=== PATIENT | male | born 1940 | race Caucasian/White ===

== ENCOUNTER 2018-10-21 10:17 | Day surgery (SDC) | payer MEDICARE, BC ==
[2018-10-17 16:06] VITALS: BMI 33.5
[~2018-10-21 10:17] MED LIST: LACTATED RINGERS 1,000 ML IV SCH; LIDOCAINE 1% 20 ML VIAL (10MG/ML) FOR IV START INTRADERMA PRN
[2018-10-21 10:38] VITALS: TEMP 97.8
[2018-10-21] MEDS ORDERED: LACTATED RINGERS 1,000 ML IV ONE (10:38)
[2018-10-21] MEDS ORDERED: PROPOFOL 10 MG/ML 20 ML VIAL IV ONE (11:40)
[2018-10-21 12:15] VITALS: RESP 16
--- NOTE | 2018-10-21 12:17 | P.PCN ---
Date of Procedure: 10/21/18 Procedure(s) Performed: Procedure: Colonoscopy and biopsy and polypectomy area Preoperative diagnosis: History of polyps and chronic diarrhea. Postoperative diagnosis: 1. Multiple polyps snared but no large polyps or cancer. 2. Sigmoid diverticulosis with no evidence of acute diverticulitis or strictures. 3. Biopsies obtained from the right colon to assess for collagenous colitis. Preparation: HalfLytely prep. Sedation: Was provided by anesthesia. Brief clinical history: The patient is a 77-year-old male with history of polyps. He was evaluated in the office in the past regarding chronic diarrhea and has history of collagenous colitis. His last colonoscopy was November 2011. Procedure: With the patient on his left lateral decubitus position and after informed consent and adequate sedation, the perianal area was inspected and it did not show any fissures or fistulas. He were no masses felt on digital rectal examination. The Olympus CFH 190 and video colonoscope was then inserted in the rectum in the usual fashion and advanced to the cecum. There were multiple diverticular orifices seen scattered in the sigmoid with no evidence of acute diverticulitis or strictures. At around 35 cm from the anal canal, there was a flat small polyp which was removed piecemeal and retrieved by suction. Around the hepatic flexure and in the proximal transverse colon there were multiple small polyps which were snared and retrieved by suction and sent to pathology together in 1 container. No large polyps or cancer. I obtained biopsies from the right colon because of his history of diarrhea and history of collagenous colitis. I retroflexed the endoscope in the rectum before the endoscope was withdrawn. The patient tolerated the procedure well. Plan: The patient was reassured. Will await pathology results and make further recommendations.
[2018-10-21 12:36] VITALS: BP 136/82; PULSE 83
== END 2018-10-21 12:54 | disposition home or self-care (01) ==
LOC: ORWHC2ENDO 10:17
DX: K52.9 Noninfective gastroenteritis and colitis, unspecified (principal); D12.3 Benign neoplasm of transverse colon; D12.5 Benign neoplasm of sigmoid colon; K57.30 Diverticulosis of large intestine without perforation or abscess without bleeding; I11.9 Hypertensive heart disease without heart failure; I50.9 Heart failure, unspecified; I26.99 Other pulmonary embolism without acute cor pulmonale; J44.9 Chronic obstructive pulmonary disease, unspecified; E78.5 Hyperlipidemia, unspecified; Z86.010 Personal history of colon polyps; Z79.899 Other long term (current) drug therapy
CPT/HCPCS: 88305; 45385; 45380; J2704

== ENCOUNTER → 2020-04-29 | Outpatient (CLI) | payer MEDICARE, BC ==
[2020-04-29 14:15] LABS: HGB 17.9 gm/dL (13.0-17.5); Hypochromasia Slight; MCHC 32.5 g/dL (31.0-37.0); MCV 95.5 fL (80.0-100.0); Mean Platelet Volume 7.5; Platelet Count 215 k/uL (150-450); RBC 5.78 m/uL (4.30-5.90); RDW 14.5 % (11.5-15.5); WBC 14.2 k/uL (3.8-10.6)
[2020-04-29 14:17] LABS: HCT 55.2 % (39.0-53.0)
== END | disposition home or self-care (01) ==
LOC: LABPAT 13:00
PROVIDERS: ATTEND Internal Medicine Interventional Cardiology
DX: Z01.818 Encounter for other preprocedural examination (principal); I25.10 Atherosclerotic heart disease of native coronary artery without angina pectoris; I70.213 Atherosclerosis of native arteries of extremities with intermittent claudication, bilateral legs
CPT/HCPCS: 36415; 80051; 82565; 84520; 85027

== ENCOUNTER 2020-05-04 07:48 | Day surgery (SDC) | payer MEDICARE, BC ==
[2020-05-02 10:48] VITALS: BMI 32.9
[~2020-05-04 07:48] MED LIST changes: +ALPRAZolam 0.25 MG TAB PO PRN; +ALPRAZolam 0.5 MG TAB PO PRN; +ASPIRIN 325 MG TAB PO STA; +ATORVASTATIN 80 MG TAB PO STA; -LACTATED RINGERS 1,000 ML IV SCH; -LIDOCAINE 1% 20 ML VIAL (10MG/ML) FOR IV START INTRADERMA PRN; +NITROGLYCERIN SL TABS 0.4 MG TAB SUBLINGUAL PRN; +SODIUM CHLORIDE 0.9% 1,000 ML in EMPTY BAG 1 BAG IV ONE
[2020-05-04] MEDS ORDERED: SODIUM CHLORIDE 0.9% 1,000 ML IV SCH ×2 (08:00→14:15)
[2020-05-04 08:30] VITALS: RESP 16
[2020-05-04] MEDS ORDERED: MIDAZOLAM 2 MG/2 ML VIAL IVP ONE (13:36)
[2020-05-04] MEDS ORDERED: LIDOCAINE 1% INJ 10MG/ML (20 ML MDV) SQ ONE (13:40)
[2020-05-04] MEDS ORDERED: SODIUM CHLORIDE 0.9% 500 ML 500 ML IV ONE (13:55)
[2020-05-04] MEDS ORDERED: IOPAMIDOL-250 50ML BTL INTRAARTER ONE (14:01)
[2020-05-04] MEDS ORDERED: IOPAMIDOL-370 100ML BTL INJ ONE (14:01)
[2020-05-04] MEDS ORDERED: RX INFO: IV CONTRAST WAS GIVEN 1 EACH MISC MISCELLANE PRN (14:07)
--- NOTE | 2020-05-04 18:40 | CC ---
CARDIAC CATHETERIZATION REPORT DATE OF SERVICE: 05/04/2020 PERFORMING PHYSICIAN: Stef Monson M.D. PROCEDURE PERFORMED: Selective right and left coronary angiogram. INDICATION: This is a pleasant 79-year-old gentleman with hypertension, dyslipidemia and paroxysmal atrial fibrillation who was experiencing symptoms of shortness of breath with exertion. He underwent myocardial perfusion imaging stress test several years ago and that showed reversible defect, but at that point he refused to undergo a heart catheterization. This time he agreed to proceed with the procedure. He was brought today to undergo heart catheterization. APPROACH: Right common femoral artery. COMPLICATIONS: None. LEVEL OF SEDATION: Moderate, with sedation length of 10 minutes. PROCEDURE DESCRIPTION: After obtaining informed consent, the patient was brought to the cardiac dental laboratory technician. The right common femoral artery was cannulated using micropuncture technique. The micropuncture wire passed easily. Then I placed a 6-Jamaican sheath. After that I did selective right and left coronary angiogram with JR4 and JL4 catheters. The procedure was completed without any complication. SELECTIVE CORONARY ANGIOGRAM: 1. The right coronary artery is a large-caliber vessel and it is a dominant vessel. The RCA is chronically occluded in the mid portion and fills by collaterals from the left coronary system. 2. The left main is angiographically normal. It bifurcates into LCX and LAD. 3. The LCX is a large-caliber vessel. It is a nondominant vessel. The LCX proximally appeared to have mild disease only. It gives rise to a large first OM branch which bifurcates into two sub-branches. Both sub-branches appeared to be diseased in the range of 70% to 80%. The mid left circumflex appeared to be normal and the circumflex distally appeared to have mild disease only. 4. The LAD. The proximal LAD appeared to be angiographically normal. The mid LAD has a focal lesion that appeared to be in the range of 70% to 80% and was most seen on the ANDRADE cranial view. The LAD distally appeared to be normal. The LAD gives rise to the first diagonal branch, which is a moderate-caliber vessel with mild disease only. CONCLUSION: 1. Calcified right and left coronary systems. 2. Chronic total occlusion of the RCA which fills by collaterals from the left coronary system. 3. Severe disease involving the first obtuse marginal branch of the left circumflex. 4. Severe disease involving the proximal LAD. The patient is going to be discharged home today. POST-PROCEDURE MANAGEMENT: 1. I am going to follow up with the patient next week in the office and I will discuss with him the option of revascularization, including surgical versus percutaneous. 2. If the patient agrees with surgical revascularization, I will consult cardiothoracic surgeon. 3. If the patient does not want to have surgery, then at that point I would pursue PCI of the LAD and possibly the LCX with adjunctive use of atherectomy, given the heavily calcified arteries. 4. Obtain an echocardiogram to establish LV function. 5. Follow up with the patient. MMODL / IJN: [id number] /
[2020-05-04 20:59] VITALS: BP 133/80; PULSE 75; TEMP 97.5
--- NOTE | 2020-05-04 22:16 | AN ---
ANGIOGRAPHY REPORT DATE OF SERVICE: 05/04/2020 PERFORMING PHYSICIAN: Stef Monson M.D. PROCEDURE PERFORMED: 1. Abdominal aortogram. 2. Bilateral lower extremity runoff. INDICATION: This is a pleasant 79-year-old gentleman who is in good physical and mental shape who was experiencing bilateral lower extremity intermittent claudication, and recent arterial duplex study showed occluded bilateral SFA. APPROACH: Right common femoral artery. COMPLICATIONS: None. LEVEL OF SEDATION: Moderate, with sedation length of 11 minutes. PROCEDURE DESCRIPTION: Please refer to procedure description of heart catheterization that was performed earlier today. ABDOMINAL AORTOGRAM AND BILATERAL LOWER EXTREMITY RUNOFF: This was performed using a pigtail catheter which was initially placed at the level of the renal arteries, then it was pulled into above the bifurcation of the aorta to right and left common iliac arteries. The procedure was completed without any complication. SELECTIVE PERIPHERAL ANGIOGRAM: 1. The abdominal aorta was not well opacified, but the aorta appeared to be heavily calcified with mild disease only. 2. Common iliac arteries. The right and left common iliac arteries appeared to be extremely calcified with mild disease only. 3. Internal iliac arteries. The right internal iliac artery was not opacified and the left internal iliac artery appeared to be patent. 4. External iliac arteries. The right and left external iliac arteries appeared to be patent. 5. Profundae. Both profundae are patent and appeared to be large. 6. SFA. The SFA is occluded bilaterally and both SFAs appeared to be heavily calcified. 7. Popliteals. Both popliteals appeared to be heavily calcified and subtotally occluded as well. 8. Below the knee. The arteries below the knee were not well opacified. CONCLUSION: 1. Mild aortoiliac disease. 2. Severe femoropopliteal disease with occluded bilateral SFA and bilateral popliteal. POST-PROCEDURE MANAGEMENT: 1. I would advise a conservative medical approach, given the patient's age at this point. 2. Follow up with the patient. MMODL / IJN: [id number] /
--- NOTE | 2020-05-05 14:34 | IR ---
Fluoroscopy HISTORY: Pain 4.6 minutes fluoroscopy time supplied to the referring clinician. 107 intraoperative C-arm images do cument the procedure. See dictated report from cardiology.
== END 2020-05-04 22:50 | disposition home or self-care (01) ==
LOC: CATHCVL 07:48 → 1SOBS 14:00 → CATHCVL 22:50
PROVIDERS: ATTEND Internal Medicine Interventional Cardiology
DX: I25.110 Atherosclerotic heart disease of native coronary artery with unstable angina pectoris (principal); I25.82 Chronic total occlusion of coronary artery; I70.213 Atherosclerosis of native arteries of extremities with intermittent claudication, bilateral legs; I10 Essential (primary) hypertension; I48.11 Longstanding persistent atrial fibrillation; J44.9 Chronic obstructive pulmonary disease, unspecified; E78.5 Hyperlipidemia, unspecified; E78.00 Pure hypercholesterolemia, unspecified; Z79.51 Long term (current) use of inhaled steroids; Z79.82 Long term (current) use of aspirin; Z79.899 Other long term (current) drug therapy; Z72.0 Tobacco use
CPT/HCPCS: 93454; 75625; 75716; C1769 ×4; C1894; J2250; J2001; Q9966; Q9967; 36200

== ENCOUNTER 2020-05-13 06:03 | Inpatient (IN) | payer MEDICARE, BC ==
[~2020-05-13 06:03] MED LIST changes: -ASPIRIN 325 MG TAB PO STA; -ATORVASTATIN 80 MG TAB PO STA
[2020-05-13] MEDS ORDERED: SODIUM CHLORIDE 0.9% 1,000 ML IV ONE (06:16)
[2020-05-13 06:53] LABS: Basophils % (A) 0 %; Eosinophils % (A) 0 %; HCT 51.3 % (39.0-53.0); HGB 16.8 gm/dL (13.0-17.5); Lymphocytes # (A) 1.1 k/uL (1.0-4.8); Lymphocytes % (A) 9 %; MCH 30.7 pg (25.0-35.0); MCHC 32.7 g/dL (31.0-37.0); Mean Platelet Volume 7.5; Monocytes # (A) 0.5 k/uL (0-1.0); Monocytes % (A) 4 %; Neutrophils # (A) 10.3 k/uL (1.3-7.7); Neutrophils % (A) 85 %; Platelet Count 183 k/uL (150-450); RBC 5.45 m/uL (4.30-5.90); RDW 14.1 % (11.5-15.5); WBC 12.1 k/uL (3.8-10.6)
[2020-05-13] MEDS ORDERED: LOPERAMIDE 2 MG CAP PO ONE (07:00)
[2020-05-13] MEDS ORDERED: ASPIRIN 325 MG TAB PO ONE (07:00)
[2020-05-13] MEDS ORDERED: ATORVASTATIN 80 MG TAB PO ONE (07:00)
[2020-05-13 07:02] LABS: Calcium 10.1 mg/dL (8.4-10.2); Potassium 5.2 mmol/L (3.5-5.1)
[2020-05-13] MEDS ORDERED: LIDOCAINE 1% INJ 10MG/ML (20 ML MDV) ONE ×2 (07:41→07:50)
[2020-05-13] MEDS: MIDAZOLAM 2 MG/2 ML VIAL IV ONE ×2 (07:48→07:56)
[2020-05-13] MEDS ORDERED: LIDOCAINE 1% INJ 10MG/ML (20 ML MDV) SQ ONE ×2 (07:50→07:52)
[2020-05-13] MEDS: fentaNYL (PF) 50 MCG/ML 2 ML AMP IV ONE ×2 (07:52→08:45)
[2020-05-13] MEDS ORDERED: HEPARIN SODIUM 1,000 UN/ML (10ML VL) ONE ×2 (07:54→08:50)
[2020-05-13] MEDS ORDERED: fentaNYL (PF) 50 MCG/ML 2 ML AMP ONE (08:05)
[2020-05-13] MEDS ORDERED: MIDAZOLAM 2 MG/2 ML VIAL IV ONE (08:10)
[2020-05-13] MEDS ORDERED: NITROGLYCERIN 1000MCG/10ML SYRINGE INTRACORON ONE (08:37)
[2020-05-13] MEDS ORDERED: IOPAMIDOL-370 100ML BTL INJ ONE (08:39)
[2020-05-13] MEDS ORDERED: TICAGRELOR 90 MG TAB ONE (08:40)
[2020-05-13] MEDS ORDERED: TICAGRELOR 90 MG TAB PO ONE (08:42)
[2020-05-13] MEDS ORDERED: ATROPINE SULFATE 0.1 MG/ML 10ML SYRINGE IV PRN (09:02)
[2020-05-13] MEDS ORDERED: MAG HYDROX/AL HYDROX/SIMETH 30 ML CUP PO PRN (09:02)
[2020-05-13] MEDS ORDERED: RX INFO: IV CONTRAST WAS GIVEN 1 EACH MISC MISCELLANE PRN (09:02)
[2020-05-13] MEDS ORDERED: ZOLPIDEM 5 MG TAB PO PRN (09:02)
[2020-05-13] MEDS ORDERED: SODIUM CHLORIDE 0.9% 1,000 ML IV SCH (09:15)
--- NOTE | 2020-05-13 12:52 | PTCA ---
PERCUTANEOUSTRANS CORORONARY ANGIOGRAPHY DATE OF SERVICE: 05/13/2020 PERFORMING PHYSICIAN: Stef Monson MD. PROCEDURE PERFORMED: 1. Placement of Impella in the left ventricle. 2. Successful stenting of the proximal left anterior descending artery using 3.5 x 18 mm Xience DENYS with an excellent angiographic results and reduction of stenosis from 80% to 0%. 3. Atherectomy of the left anterior descending artery. 4. Selective bilateral common femoral artery angiogram. INDICATION: This is an 79-year-old gentleman who was experiencing symptoms of shortness of breath and as well as he was diagnosed recently with atrial fibrillation. A stress test in the past revealed reversible defect. He underwent a heart catheterization and that revealed severe triple-vessel coronary artery disease, but with his age and frailty, he refused to go through open heart surgery. He was brought today to undergo a PCI of the LAD. APPROACH: Right and left common femoral artery. COMPLICATION: None. LEVEL OF SEDATION: Moderate with sedation length of 60 minutes. PROCEDURE DESCRIPTION: After obtaining an informed consent, the patient was brought to the cardiac chemical laboratory scientist. The right common femoral artery was cannulated using micropuncture technique and a micropuncture wire passed easily, then I placed a 6-Greenlandic sheath at the right common femoral artery. After that, the left common femoral artery was cannulated using micropuncture technique and a micropuncture wire passed easily, then I placed another 6-Greenlandic sheath in the left common femoral artery. I did after that selective bilateral common femoral artery angiogram. After that, I decided to go with Impella on the left side. The 6-Greenlandic sheath was upgraded to 12-Greenlandic sheath using an 8-Greenlandic and 10-Greenlandic dilator. That was performed over stiff 0.35 wire. At that point, anticoagulation was initiated using heparin. The patient was given 10,000 units of heparin at the beginning of the procedure with continuous ACT monitoring throughout the procedure. Subsequently, I did cross the left ventricle using 0.35 regular regular J-wire with a pigtail catheter. Then I advanced a 1.8 through the pigtail catheter and then I advanced the Impella over the 0.18 wire to the left ventricle. Subsequently, the Impella was turned on. After that, I did engage the left main using an XP35 LAD guide. I did wire it using the Viper wire. I did atherectomy of the LAD using the orbital atherectomy device from [employer] with a coronary izabel. After that I did stenting of the LAD using a 3.5 x 18 mm Xience DENYS where the stent was positioned under fluoroscopy guidance and deployed under it at 14 atmospheres for 20 seconds with the following angiogram showed excellent angiographic results and the procedure was completed without any complication. After that, I did pull the Impella from the left ventricle. Subsequently, I did pull the Impella completely out of the sheath in the left groin. I did close the left groin using 2 Perclose, which I did pre close at the beginning of the procedure. The right groin sheath was left to be pulled manually. The procedure was completed without any complication. POSTPROCEDURE MANAGEMENT: 1. Dual anti-platelet therapy. 2. Risk factors modifications. 3. Follow up with the patient. KHURRAM / SOLA: [id number] /
[2020-05-13] MEDS: METOPROLOL SUCCINATE (ER) 50 MG TAB.ER.24H PO SCH (14:01)
[2020-05-13 14:26] LABS: Glucose,Whole Blood 121 mg/dL (75-99)
[2020-05-13 14:40] LABS: Glucose,Whole Blood 119 mg/dL (75-99)
[2020-05-13] MEDS: SYMBICORT 160-4.5 MCG INHALER INHALATION SCH (20:35)
[2020-05-13] MEDS: diphenhydrAMINE 25 MG CAP PO SCH (20:52)
[2020-05-13] MEDS: TICAGRELOR 90 MG TAB PO SCH (20:52)
[2020-05-13] MEDS ORDERED: LOPERAMIDE 2 MG CAP PO PRN (20:58)
[2020-05-14 06:23] LABS: Basophils # (A) 0.1 k/uL (0-0.2); Basophils % (A) 1 %; Eosinophils # (A) 0.1 k/uL (0-0.7); Eosinophils % (A) 1 %; HCT 51.4 % (39.0-53.0); HGB 16.3 gm/dL (13.0-17.5); Lymphocytes # (A) 1.8 k/uL (1.0-4.8); Lymphocytes % (A) 17 %; MCH 29.6 pg (25.0-35.0); MCHC 31.7 g/dL (31.0-37.0); MCV 93.1 fL (80.0-100.0); Mean Platelet Volume 7.3; Monocytes # (A) 0.7 k/uL (0-1.0); Monocytes % (A) 7 %; Neutrophils # (A) 7.6 k/uL (1.3-7.7); Neutrophils % (A) 72 %; Platelet Count 169 k/uL (150-450); RBC 5.51 m/uL (4.30-5.90); RDW 14.5 % (11.5-15.5); WBC 10.6 k/uL (3.8-10.6)
[2020-05-14 06:34] LABS: Calcium 9.7 mg/dL (8.4-10.2); Potassium 4.3 mmol/L (3.5-5.1)
[2020-05-14] MEDS ORDERED: FUROSEMIDE 10 MG/ML 2 ML VIAL IV STA (08:17)
[2020-05-14] MEDS: TICAGRELOR 90 MG TAB PO SCH (08:38)
[2020-05-14] MEDS: diphenhydrAMINE 25 MG CAP PO SCH (08:39)
[2020-05-14] MEDS ORDERED: DIGOXIN 125 MCG TAB PO SCH (09:00)
[2020-05-14] MEDS ORDERED: FAMOTIDINE 20 MG TAB PO SCH (09:00)
[2020-05-14] MEDS ORDERED: CILOSTAZOL 100 MG TAB PO SCH (09:00)
[2020-05-14] MEDS ORDERED: ASPIRIN 81 MG PO SCH (09:00)
[2020-05-14] MEDS ORDERED: ATORVASTATIN 20 MG TAB PO SCH (09:00)
[2020-05-14] MEDS ORDERED: NON FORMULARY DRUG (Vitamin B Complex [Vitamin B Complex] 1 EACH) PO SCH (09:00)
--- NOTE | 2020-05-14 09:09 | XR ---
EXAMINATION TYPE: XR chest 1V portable DATE OF EXAM: 05/14/2020 HISTORY: Shortness of breath. COMPARISON: 04/18/2020 TECHNIQUE: Single view of the chest is submitted. FINDINGS: Demonstrated are scattered senescent parenchymal change. There is no evidence for focal infiltrate. The heart is stable. Hilar and mediastinal structures are within normal limits. Degenerative changes are seen of the dorsal spine. IMPRESSION: 1. Chronic changes without evidence for acute pulmonary disease.
[2020-05-14] MEDS: SYMBICORT 160-4.5 MCG INHALER INHALATION SCH (09:11)
--- NOTE | 2020-05-14 10:26 | DS ---
DISCHARGE SUMMARY ADMISSION DATE: 05/13/2020 DISCHARGE DATE: May 14, 2020 BRIEF HISTORY: This is a very pleasant 79-year-old gentleman who underwent yesterday successful stenting of the proximal left anterior descending artery along with successful atherectomy of the left anterior descending artery with adjunctive use of Impella. The procedure was performed from the right and left groins. Both groins are soft and nontender and without any bruises. The patient is going to be discharged home today on dual anti-platelet therapy along with anticoagulation for the atrial fibrillation on low-dose. I am going to follow up with the patient next week in the office. MMODL / IJN: [id number] /
[2020-05-14 11:36] VITALS: BMI 35.6
[2020-05-14 12:24] VITALS: TEMP 97.9
[2020-05-14] MEDS: METOPROLOL SUCCINATE (ER) 50 MG TAB.ER.24H PO SCH (12:43)
[2020-05-14 14:46] VITALS: BP 130/78; PULSE 78; RESP 16
== END 2020-05-14 14:50 | disposition home or self-care (01) | DRG 215 ==
LOC: CATHCVL 06:03 → 2SICU 08:47 → CATHCVL 15:38
PROVIDERS: ADMIT Internal Medicine Interventional Cardiology; ATTEND Internal Medicine Interventional Cardiology
PROC: X2C0361 Extirpation of Matter from Coronary Artery, One Artery using Orbital Atherectomy Technology, Percutaneous Approach, New Technology Group 1 (ICD-10-PCS; 2020-05-13)
PROC: 5A0221D Assistance with Cardiac Output using Impeller Pump, Continuous (ICD-10-PCS; 2020-05-13)
PROC: 027034Z Dilation of Coronary Artery, One Artery with Drug-eluting Intraluminal Device, Percutaneous Approach (ICD-10-PCS; principal; 2020-05-13 07:30)
PROC: 02HA3RJ Insertion of Short-term External Heart Assist System into Heart, Intraoperative, Percutaneous Approach (ICD-10-PCS; 2020-05-13 07:30)
DX: I25.10 Atherosclerotic heart disease of native coronary artery without angina pectoris (principal); I27.20 Pulmonary hypertension, unspecified; J44.9 Chronic obstructive pulmonary disease, unspecified; I11.9 Hypertensive heart disease without heart failure; R54 Age-related physical debility; I70.213 Atherosclerosis of native arteries of extremities with intermittent claudication, bilateral legs; I48.0 Paroxysmal atrial fibrillation; I08.1 Rheumatic disorders of both mitral and tricuspid valves; E78.5 Hyperlipidemia, unspecified; Z79.01 Long term (current) use of anticoagulants; Z79.52 Long term (current) use of systemic steroids; Z79.899 Other long term (current) drug therapy; Z87.891 Personal history of nicotine dependence
CPT/HCPCS: 71045; 80048; 83880; 85025; 94640

== ENCOUNTER 2020-06-05 20:23 | Observation (INO) | payer MEDICARE, BC ==
--- NOTE | 2020-06-05 20:49 | ED ---
General Adult HPI - General Chief complaint: Shortness of Breath Stated complaint: SOB Time Seen by Provider: 06/05/20 20:30 Source: patient, family Mode of arrival: wheelchair Limitations: physical limitation - History of Present Illness Initial comments: Dictation was produced using [employer] dictation software. please excuse any grammatical, word or spelling errors. This patient was cared for during a federal and state declared state of emergen cy secondary to Covid 19 Chief Complaint: 79-year-old male multiple comorbidities presents with shortness of breath. History of Present Illness: It is an 79-year-old male has multiple comorbidities presents with shortness of breath. Patient reports that 2-3 weeks ago patient had cardiac catheterization. At that time a stent was placed. Since then patient has been noting increase shortness of breath. Patient was with shortness of breath over this time and feels a little different. He reports that whenever he holds his breath he doesn't feel as bad. He thinks that whenever he does this maneuver it's indication that shortness of breath secondary to his heart. Patient is a vasculopath and has multiple blockages. During one of his chronic catheterizationon that he shouldn't had widespread vascular disease. He is recommended to him that he may be a candidate for coronary artery bypass grafting. He decided not to and in stead to have maximal medical therapy and percutaneous intervention. He does report that his shortness of breath is worse when lying flat. He reports that lying left lateral decubitus is the best for his dyspnea. The ROS documented in this emergency department record has been reviewed and confirmed by me. Those systems with pertinent positive or negative responses have been documented in the HPI. All other systems are other negative and/or no ncontributory. PHYSICAL EXAM: General Impression: Alert and oriented x3, not in acute distress HEENT: Normocephalic atraumatic, extra-ocular movements intact, pupils equal and reactive to light bilaterally, mucous membranes moist. Cardiovascular: Heart regular rate and rhythm Chest: Able to complete full sentences, no retractions, no tachypnea, diffuse crackles worse in the left posterior lung bases compared to the right Abdomen: abdomen soft, non-tender, non-distended, no organomegaly Musculoskeletal: Pulses present and equal in all extremities, no peripheral edema Motor: no focal deficits noted Neurological: CN II-XII grossly intact, no focal motor or sensory deficits noted Skin: Intact with no visualized rashes Psych: Normal affect and mood ED course: 79-year-old male presents with dyspnea. Patient had recent cardiac catheterization with intervention he has multiple comorbidities. As upon arrival are within acceptable limits. He does take apixaban. His medications according to our EMR was reviewed. Laboratory evaluation obtained. Mild leukocytosis at 12.2 likely secondary to stress. Hemoglobin is 18.4. Coag panel is unremarkable. Metabolic panel is negative. Troponins 0.018. Brain natruretic peptide is 410. Patient reevaluated at bedside he appears to be in stable medical condition. There is no clear etiology of patient's shortness of breath. Patient will be admitted to observation for medical monitoring however given his multiple comorbidities. Does not appear to be dyspneic at rest. Discussed patient case Dr. desir is went except patient's care. Consultation made to pulmonology and cardiology. EKG interpretation: Ventricular rate 89, sinus rhythm, AL interval 218, QRS 110, QTc 447. No AL prolongation, no QTC prolongation, no ST or T-wave changes noted. EKG compared to 05/13/2020 showing no changes. At 1622, May [address] interpretation listed ST segment elevation HI. According to chart review this EKG from May 13 was performed after patient's cardiac cath procedure. EKG today appears to be similar to the EKG from May 13. - Related Data Home Medications Medication Instructions Recorded Confirmed Atorvastatin [Lipitor] 20 mg PO DAILY 10/17/18 05/13/20 Budesonide/Formoterol Fumarate 2 puff INHALATION BID 10/17/18 05/13/20 [Symbicort 160-4.5 Mcg Inhaler] Digoxin [Lanoxin] 125 mcg PO DAILY 10/17/18 05/13/20 Metoprolol Succinate [Toprol XL] 50 mg PO 1200 10/17/18 05/13/20 cilostazoL [Pletal] 50 mg PO DAILY 10/17/18 05/13/20 Apixaban [Eliquis] 2.5 mg PO BID 05/02/20 05/13/20 Famotidine 40 mg PO DAILY 05/02/20 05/13/20 Fexofenadine HCl [Hanh Allergy] 180 mg PO DAILY 05/02/20 05/13/20 Naproxen Sodium [Aleve] 220 mg PO DAILY PRN 05/02/20 05/13/20 Vitamin B Complex 1 each PO DAILY 05/02/20 05/13/20 diphenhydrAMINE [Benadryl] 25 mg PO BID 05/02/20 05/13/20 predniSONE 10 mg PO BID 05/02/20 05/13/20 Previous Rx's Medication Instructions Recorded Aspirin 81 mg PO DAILY #90 chew 05/14/20 Ticagrelor [Brilinta] 90 mg PO BID #180 tab 05/14/20 Allergies Allergy/AdvReac Type Severity Reaction Status Date / Time Iodinated Contrast Media AdvReac Diarrhea, Verified 06/05/20 20:27 [Iodinated Contrast- Oral RASH and IV Dye] Review of Systems ROS Statement: Those systems with pertinent positive or pertinent negative responses have been documented in the HPI. ROS Other: All systems not noted in ROS Statement are negative. Past Medical History Past Medical History: Atrial Flutter, Coronary Artery Disease (CAD), Heart Failure, COPD, GERD/Reflux, Hearing Disorder / Deafness, Hyperlipidemia, Hypertension, Osteoarthritis (OA), Renal Disease, Vascular Disorder Additional Past Medical History / Comment(s): hx. gout, hx. colon polyps, circulation problems in legs, slight decreased kidney function, shingles History of Any Multi-Drug Resistant Organisms: None Reported Past Surgical History: Cholecystectomy, Heart Catheterization, Heart Catheterization With Stent Additional Past Surgical History / Comment(s): right bone graft to collar bone Past Anesthesia/Blood Transfusion Reactions: No Reported Reaction Past Psychological History: No Psychological Hx Reported Smoking Status: Former smoker Past Alcohol Use History: None Reported Past Drug Use History: None Reported - Past Family History Mother Family Medical History: No Reported History General Exam Limitations: physical limitation Course Vital Signs 06/05/20 06/05/20 06/05/20 20:24 21:08 21:27 Temperature 97.7 F Pulse Rate 69 91 Pulse Rate [ 90 Buggy Runner ] Respiratory 20 24 22 Rate Blood Pressure 139/97 119/95 O2 Sat by Pulse 94 L 97 Oximetry Medical Decision Making - Lab Data Result diagrams: 06/05/20 20:52 06/05/20 20:52 Lab Results 06/05/20 06/05/20 06/05/20 Range/Units 20:52 20:52 20:52 WBC 12.2 H (3.8-10.6) k/uL RBC 6.29 H (4.30-5.90) m/uL Hgb 18.4 H (13.0-17.5) gm/dL Hct 56.9 H (39.0-53.0) % MCV 90.4 (80.0-100.0) fL MCH 29.3 (25.0-35.0) pg MCHC 32.4 (31.0-37.0) g/dL RDW 14.9 (11.5-15.5) % Plt Count 203 (150-450) k/uL Neutrophils % 71 % Lymphocytes % 14 % Monocytes % 8 % Eosinophils % 2 % Basophils % 1 % Neutrophils # 8.7 H (1.3-7.7) k/uL Lymphocytes # 1.7 (1.0-4.8) k/uL Monocytes # 1.0 (0-1.0) k/uL Eosinophils # 0.3 (0-0.7) k/uL Basophils # 0.2 (0-0.2) k/uL PT 11.1 (9.0-12.0) sec INR 1.1 (<1.2) APTT 30.6 H (22.0-30.0) sec Sodium 137 (137-145) mmol/L Potassium 4.2 (3.5-5.1) mmol/L Chloride 100 (98-107) mmol/L Carbon Dioxide 26 (22-30) mmol/L Anion Gap 11 mmol/L BUN 22 H (9-20) mg/dL Creatinine 1.57 H (0.66-1.25) mg/dL Est GFR (CKD-EPI)AfAm 48 (>60 ml/min/1.73 sqM) Est GFR (CKD-EPI)NonAf 41 (>60 ml/min/1.73 sqM) Glucose 134 H (74-99) mg/dL Calcium 10.6 H (8.4-10.2) mg/dL CK-MB (CK-2) (0.0-2.4) ng/mL Troponin I (0.000-0.034) ng/mL NT-Pro-B Natriuret Pep pg/mL 06/05/20 06/05/20 Range/Units 20:52 20:52 WBC (3.8-10.6) k/uL RBC (4.30-5.90) m/uL Hgb (13.0-17.5) gm/dL Hct (39.0-53.0) % MCV (80.0-100.0) fL MCH (25.0-35.0) pg MCHC (31.0-37.0) g/dL RDW (11.5-15.5) % Plt Count (150-450) k/uL Neutrophils % % Lymphocytes % % Monocytes % % Eosinophils % % Basophils % % Neutrophils # (1.3-7.7) k/uL Lymphocytes # (1.0-4.8) k/uL Monocytes # (0-1.0) k/uL Eosinophils # (0-0.7) k/uL Basophils # (0-0.2) k/uL PT (9.0-12.0) sec INR (<1.2) APTT (22.0-30.0) sec Sodium (137-145) mmol/L Potassium (3.5-5.1) mmol/L Chloride (98-107) mmol/L Carbon Dioxide (22-30) mmol/L Anion Gap mmol/L BUN (9-20) mg/dL Creatinine (0.66-1.25) mg/dL Est GFR (CKD-EPI)AfAm (>60 ml/min/1.73 sqM) Est GFR (CKD-EPI)NonAf (>60 ml/min/1.73 sqM) Glucose (74-99) mg/dL Calcium (8.4-10.2) mg/dL CK-MB (CK-2) 1.4 (0.0-2.4) ng/mL Troponin I 0.018 (0.000-0.034) ng/mL NT-Pro-B Natriuret Pep 410 pg/mL Disposition Clinical Impression: Dyspnea Disposition: ADMITTED IP TO THIS HOSP Condition: Fair Referrals: Joanne Bergman DO [Primary Care Provider] - 1-2 days Decision Time: 21:44
[2020-06-05 21:02] LABS: Basophils # (A) 0.2 k/uL (0-0.2); Basophils % (A) 1 %; Eosinophils # (A) 0.3 k/uL (0-0.7); Eosinophils % (A) 2 %; HGB 18.4 gm/dL (13.0-17.5); Lymphocytes # (A) 1.7 k/uL (1.0-4.8); Lymphocytes % (A) 14 %; MCH 29.3 pg (25.0-35.0); MCHC 32.4 g/dL (31.0-37.0); MCV 90.4 fL (80.0-100.0); Mean Platelet Volume 7.8; Monocytes % (A) 8 %; Neutrophils # (A) 8.7 k/uL (1.3-7.7); Neutrophils % (A) 71 %; Platelet Count 203 k/uL (150-450); RBC 6.29 m/uL (4.30-5.90); RDW 14.9 % (11.5-15.5); WBC 12.2 k/uL (3.8-10.6)
[2020-06-05 21:11] LABS: INR 1.1 (<1.2); Partial Thromboplastin Time 30.6 sec (22.0-30.0); Prothrombin Time 11.1 sec (9.0-12.0)
[2020-06-05 21:12] LABS: HCT 56.9 % (39.0-53.0)
[2020-06-05 21:14] LABS: Calcium 10.6 mg/dL (8.4-10.2); Potassium 4.2 mmol/L (3.5-5.1)
--- NOTE | 2020-06-05 21:16 | XR ---
EXAMINATION TYPE: XR chest 2V DATE OF EXAM: 06/05/2020 COMPARISON: 05/14/2020 HISTORY: Short of breath TECHNIQUE: FINDINGS: There is blunting left costophrenic angle. There is no heart failure. There is coarsening o f interstitial markings left lower lobe. There are no hilar masses. Thoracic aorta is atheromatous. IMPRESSION: Pleural and pulmonary scarring left lower lobe probably not changed compared to old exam. No heart failure seen.
[2020-06-05 21:26] LABS: Creatine Kinase MB 1.4 ng/mL (0.0-2.4); Troponin I 0.018 ng/mL (0.000-0.034)
[2020-06-05] MEDS ORDERED: NALOXONE 0.4 MG/ML 1 ML VIAL IV PRN (21:40)
[2020-06-05] MEDS: SODIUM CHLORIDE 0.9% 1,000 ML IV SCH (21:46)
[2020-06-05] MEDS ORDERED: ASPIRIN 81 MG PO STA (21:47)
[2020-06-05] MEDS ORDERED: diphenhydrAMINE 25 MG CAP PO PRN (22:11)
[2020-06-06] MEDS: SYMBICORT 160-4.5 MCG INHALER INHALATION SCH ×3 (00:15→19:57)
[2020-06-06] MEDS ORDERED: TICAGRELOR 90 MG TAB PO SCH (01:00)
[2020-06-06] MEDS: APIXABAN 2.5 MG TABLET PO SCH ×2 (01:01→13:03)
[2020-06-06 03:05] LABS: Basophils # (A) 0.1 k/uL (0-0.2); Basophils % (A) 1 %; Eosinophils # (A) 0.4 k/uL (0-0.7); Eosinophils % (A) 3 %; HCT 54.2 % (39.0-53.0); Lymphocytes # (A) 2.6 k/uL (1.0-4.8); Lymphocytes % (A) 21 %; MCH 30.6 pg (25.0-35.0); MCHC 33.2 g/dL (31.0-37.0); MCV 92.2 fL (80.0-100.0); Mean Platelet Volume 7.9; Monocytes # (A) 1.2 k/uL (0-1.0); Monocytes % (A) 10 %; Neutrophils # (A) 7.7 k/uL (1.3-7.7); Neutrophils % (A) 62 %; Platelet Count 205 k/uL (150-450); RBC 5.87 m/uL (4.30-5.90); RDW 15.1 % (11.5-15.5); WBC 12.4 k/uL (3.8-10.6)
[2020-06-06 03:14] LABS: Calcium 10.2 mg/dL (8.4-10.2)
[2020-06-06] MEDS ORDERED: CLOPIDOGREL 75 MG TAB PO STA (08:02)
[2020-06-06] MEDS ORDERED: FAMOTIDINE 20 MG/2 ML VIAL IV SCH (09:00)
--- NOTE | 2020-06-06 09:23 | P.CRDCN ---
History of Present Illness History of present illness: HISTORY OF PRESENTING ILLNESS This is a pleasant 79-year-old male past medical history significant for paroxysmal atrial fibrillation on long-term anticoagulation, coronary artery disease status post recent revascularization, peripheral vascular disease, hypertension, dyslipidemia and COPD. He follows in the office with Dr. Monson. He recently underwent cardiac catheterization secondary to an abnormal stress test as well as aortogram with runoff. Aortogram revealed occluded bilateral SFA and occluded bilateral popliteals. Heart catheterization revealed calcified right left coronary systems with a chronic total occlusion of the RCA with collateral circulation and severe disease involving the LAD and circumflex. There was discussion regarding possible bypass grafting versus PCI. The patient opted for PCI. He then underwent reperfusion of the LAD on Impella on May 13. We have been asked to see in consultation for shortness of breath. The recent cardiac catheterization was performed was secondary to exertional shortness of breath. He states his breathing has had improved since his revascularization and actually seems to have gotten worse. He denies chest pain, dizziness or palpitations. He has no nausea, vomiting or diaphoresis. DIAGNOSTICS EKG reveals atrial fibrillation with T-wave inversions inferolaterally. Chest xray reveals pleural and pulmonary scarring of the left lower lobe unchanged from previous exam with no overt heart failure. Laboratory reviewed, WBC 12.4, hemoglobin 18, platelets 205, sodium 137, potassium 4.0, creatinine 1.43, cardiac enzymes negative 3, NT proBNP 410. Current cardiac medications include Brilinta 90 mg twice a day, Eliquis 2.5 mg twice a day, aspirin 81 mg daily, atorvastatin 20 mg daily, digoxin 125 g ernst y, Lasix 20 mg daily, Toprol 50 mg daily and Pletal 50 mg daily. REVIEW OF SYSTEMS At the time of my exam: CONSTITUTIONAL: Denies fever or chills. CARDIOVASCULAR: Complains of shortness of breath with exertion. Denies chest pain, orthopnea, PND or palpitations. RESPIRATORY: Denies cough. GASTROINTESTINAL: Denies abdominal pain, diarrhea, constipation, nausea or vomiting. MUSCULOSKELETAL: Denies myalgias. NEUROLOGIC: Denies numbness, tingling or weakness. ENDOCRINE: Denies fatigue, weight change, polydipsia or polyurina. GENITOURINARY: Denies burning, hematuria or urgency with micturation. HEMATOLOGIC: Denies history of anemia or bleeding. PHYSICAL EXAMINATION Blood pressure 121/74 heart rate 68 afebrile and maintaining oxygen saturation on nasal cannula. CONSTITUTIONAL: No apparent distress. HEENT: Head is normocephalic. Pupils are equal, round. Sclerae anicteric. Mucous membranes of the mouth are moist. No JVD. No carotid bruit. CHEST EXAMINATION: Lungs are clear to auscultation. No chest wall tenderness is noted on palpation or with deep breathing. Diminished bilaterally. HEART EXAMINATION: Irregular rate and rhythm. S1, S2 heard. No murmurs, gallops or rub. ABDOMEN: Soft, nontender. Positive bowel sounds. EXTREMITIES: 2+ peripheral pulses, no lower extremity edema and no calf tenderness. NEUROLOGIC EXAMINATION: Patient is awake, alert and oriented x3. ASSESSMENT Exertional shortness of breath, an acute coronary event has been ruled out. Leukocytosis Paroxysmal atrial fibrillation on long-term anticoagulation with Eliquis Coronary artery disease s/p recent PCI and athrectomy of the LAD Peripheral vascular disease Hypertension Dyslipidemia COPD Former nicotine dependence, quit 2014 PLAN An acute coronary event has been ruled out. No EKG evidence of ischemia and negative cardiac enzymes. Check a stat d-dimer. Repeat echocardiogram to assess LV function. Brilinta can cause shortness of breath we will change him to Plavix. Given a loading dose of 300 mg now and start 75 mg daily from tomorrow. Recommend further pulmonary evaluation. The patient was short of breath prior to his PCI and continues to be short of breath leading to a possible pulmonary e tiology for his symptoms rather than cardiac. Further recommendations to follow based upon clinical course. Thank you kindly for this consultation. Nurse Practitioner note has been reviewed, I agree with a documented findings and plan of care. Patient was seen and examined. Past Medical History Past Medical History: Atrial Flutter, Coronary Artery Disease (CAD), Heart Failure, COPD, GERD/Reflux, Hearing Disorder / Deafness, Hyperlipidemia, Hypertension, Osteoarthritis (OA), Renal Disease, Vascular Disorder Additional Past Medical History / Comment(s): hx. gout, hx. colon polyps, circulation problems in legs, slight decreased kidney function, shingles History of Any Multi-Drug Resistant Organisms: None Reported Past Surgical History: Cholecystectomy, Heart Catheterization, Heart Catheterization With Stent Additional Past Surgical History / Comment(s): right bone graft to collar bone Past Anesthesia/Blood Transfusion Reactions: No Reported Reaction Date of Last Stent Placement:: 05/2020 Past Psychological History: No Psychological Hx Reported Smoking Status: Former smoker Past Alcohol Use History: None Reported Additional Past Alcohol Use History / Comment(s): quit smoking 2014, smoked 1pp d- 2PPD STARTED SMOKING AT AGE 14 Past Drug Use History: None Reported - Past Family History Mother Family Medical History: No Reported History Medications and Allergies Home Medications Medication Instructions Recorded Confirmed Type Atorvastatin [Lipitor] 20 mg PO DAILY@1300 10/17/18 06/05/20 History Budesonide/Formoterol Fumarate 2 puff INHALATION RT-BID@0100,1300 10/17/18 06/05/20 History [Symbicort 160-4.5 Mcg Inhaler] Digoxin [Lanoxin] 125 mcg PO DAILY@1300 10/17/18 06/05/20 History Metoprolol Succinate [Toprol XL] 50 mg PO DAILY@1300 10/17/18 06/05/20 History cilostazoL [Pletal] 50 mg PO DAILY@1300 10/17/18 06/05/20 History Fexofenadine HCl [Hanh Allergy] 180 mg PO DAILY@1300 05/02/20 06/05/20 History Naproxen Sodium [Aleve] 220 mg PO DAILY PRN 05/02/20 06/05/20 History Vitamin B Complex 1 cap PO DAILY@1300 05/02/20 06/05/20 History diphenhydrAMINE [Benadryl] 25 mg PO BID PRN 05/02/20 06/05/20 History Apixaban [Eliquis] 2.5 mg PO BID@0100,1300 06/05/20 06/05/20 History Aspirin 81 mg PO DAILY@1300 06/05/20 06/05/20 History Furosemide [Lasix] 20 mg PO DAILY@1300 06/05/20 06/05/20 History Ticagrelor [Brilinta] 90 mg PO BID@0100,1300 06/05/20 06/05/20 History Allergies Allergy/AdvReac Type Severity Reaction Status Date / Time Iodinated Contrast Media AdvReac Diarrhea, Verified 06/05/20 21:53 [Iodinated Contrast- Oral RASH and IV Dye] Physical Exam Vitals: Vital Signs Temp Pulse Pulse Pulse Resp BP BP 06/06/20 08:01 98.0 F 68 18 121/74 06/06/20 03:00 97.9 F 65 17 120/79 06/06/20 01:23 98 F 72 17 130/84 06/05/20 22:22 98.7 F 90 20 122/92 06/05/20 21:27 91 22 119/95 06/05/20 21:08 90 24 06/05/20 20:24 97.7 F 69 20 139/97 Pulse Ox 06/06/20 08:01 95 06/06/20 03:00 95 06/06/20 01:23 96 06/05/20 22:22 97 06/05/20 21:27 97 06/05/20 21:08 06/05/20 20:24 94 L Intake and Output 06/05/20 06/06/20 06/06/20 22:59 06:59 14:59 Intake Total 150 60 Balance 150 60 Intake: Intake, IV Titration 60 Amount Sodium Chloride 0.9% 1, 60 000 ml @ 20 mls/hr IV . Q24H [facility] Rx#:[id number] Oral 150 0 Other: Voiding Method Urinal Weight 90.718 kg Results 06/06/20 02:41 06/06/20 02:41 Cardiac Enzymes 06/05/20 06/05/20 06/06/20 Range/Units 20:52 23:14 02:41 CK-MB (CK-2) 1.4 (0.0-2.4) ng/mL Troponin I 0.018 0.020 0.021 (0.000-0.034) ng/mL Coagulation 06/05/20 Range/Units 20:52 PT 11.1 (9.0-12.0) sec APTT 30.6 H (22.0-30.0) sec CBC 06/05/20 06/06/20 Range/Units 20:52 02:41 WBC 12.2 H 12.4 H (3.8-10.6) k/uL RBC 6.29 H 5.87 (4.30-5.90) m/uL Hgb 18.4 H 18.0 H (13.0-17.5) gm/dL Hct 56.9 H 54.2 H (39.0-53.0) % Plt Count 203 205 (150-450) k/uL Comprehensive Metabolic Panel 06/05/20 06/06/20 Range/Units 20:52 02:41 Sodium 137 137 (137-145) mmol/L Potassium 4.2 4.0 (3.5-5.1) mmol/L Chloride 100 102 (98-107) mmol/L Carbon Dioxide 26 25 (22-30) mmol/L BUN 22 H 23 H (9-20) mg/dL Creatinine 1.57 H 1.43 H (0.66-1.25) mg/dL Glucose 134 H 121 H (74-99) mg/dL Calcium 10.6 H 10.2 (8.4-10.2) mg/dL Current Medications Generic Name Dose Route Start Last Admin Trade Name Freq PRN Reason Stop Dose Admin Apixaban 2.5 mg 06/06/20 01:00 06/06/20 01:01 Eliquis PO 2.5 mg BID@0100,1300 [facility] Administration Aspirin 81 mg 06/06/20 13:00 Aspirin PO DAILY@1300 [facility] Atorvastatin Calcium 20 mg 06/06/20 13:00 Lipitor PO DAILY@1300 [facility] Budesonide/Formoterol Fumarate 2 puff 06/06/20 01:00 06/06/20 07:36 Symbicort 160-4.5 Mcg Inhaler INHALATION 2 puff RT-BID@0100,1300 [facility] Administration Clopidogrel Bisulfate 75 mg 06/07/20 09:00 Plavix PO DAILY [facility] Digoxin 125 mcg 06/06/20 13:00 Lanoxin PO DAILY@1300 [facility] Diphenhydramine HCl 25 mg 06/05/20 22:11 Benadryl PO BID PRN as directed for procedure Famotidine 20 mg 06/06/20 09:00 Pepcid IV Q12HR [facility] Sodium Chloride 1,000 mls @ 20 mls/hr 06/05/20 21:45 06/05/20 21:46 Saline 0.9% IV 20 mls/hr .Q24H [facility] Administration Loratadine 10 mg 06/06/20 13:00 Claritin PO DAILY@1300 [facility] Metoprolol Succinate 50 mg 06/06/20 13:00 Toprol Xl PO DAILY@1300 [facility] Naloxone HCl 0.2 mg 06/05/20 21:40 Narcan IV Q2M PRN Opioid Reversal Intake and Output 06/05/20 06/06/20 06/06/20 22:59 06:59 14:59 Intake Total 150 60 Balance 150 60 Intake: Intake, IV Titration 60 Amount Sodium Chloride 0.9% 1, 60 000 ml @ 20 mls/hr IV . Q24H [facility] Rx#:[id number] Oral 150 0 Other: Voiding Method Urinal Weight 90.718 kg 06/06/20 02:41 06/06/20 02:41
--- NOTE | 2020-06-06 10:36 | CT ---
EXAMINATION TYPE: CT chest wo con DATE OF EXAM: 06/06/2020 COMPARISON: 12/16/2009 HISTORY: Dyspnea CT DLP: 399.[address] of the chest was performed with lung and mediastinal window settings submitted. The la ck of contrast limits evaluation of the vascular, mediastinal and parenchymal structures including th e upper abdomen. LUNGS: Calcified pleural plaque left lower lobe. Left upper lobe granuloma. Emphysematous changes see n. Small focus of groundglass infiltrate right upper lobe posteriorly image 18. No pulmonary nodule o r mass is detected. No pleural effusion. No CT evidence of interstitial lung disease. MEDIASTINUM/JAIR: Ectasia of the thoracic aorta with the ascending thoracic aortic aneurysm measuring 3.7 cm AP dimension. Cardiomegaly with coronary artery calcifications. No evidence for mediastinal m ass. No lymph nodes greater than 1cm. Hiatal hernia noted. UPPER ABDOMEN: No significant abnormality is seen. OTHER: No significant other abnormality. IMPRESSION: 1. Small focus of groundglass infiltrate right upper lobe posteriorly may reflect acute inflammatory process. 2. Calcified pleural plaques and parenchymal granuloma. 3. Descending thoracic aortic aneurysm.
--- NOTE | 2020-06-06 12:36 | P.CNPUL ---
History of Present Illness Reason for consult: dyspnea History of present illness: A 7-year-old male patient was hospitalized yesterday because of shortness of breath. In fact I saw this patient my office on 05/26/2020 for the same reason. At that time the patient was having shortness of breath with limited amount of activity. He is known to me. He has COPD with an FEV1 of 70% of predicted consistent with mild COPD and the patient is demented on Symbicort. The patient has no previous history of DVT or pulmonary embolism. I referred this patient to cardiology. The patient underwent cardiac catheterization on 05/04/2020 and the patient was found to have heavily calcified right and left coronary system. There was chronic total occlusion of the RCA with collateral flow from the left system. There was severe disease involving the first OM branch of circumflex. There was also severe disease involving the proximal LAD. The patient was not found to be a good surgical candidate. Ideally he would have required a cardiac revascularization surgery. Based on that, he was given the option of cardiac catheterization and he was given a successful stent to his LAD. Note that this procedure was done after placing an ampulla and his left ventricle. There was selective bilateral, femoral artery for clue angiogram that showed chronic occlusion and severe peripheral vascular disease. Chest x-ray that was done in the hospital on 05/14/2020 showed no acute abnormalities. Currently the patient is still in atrial fibrillation. He is on a combination of aspirin and Brillinta he is also taking Eliquis 2.5 mg twice a day. He is on Lasix 20 mgby mouth daily and there are no signs of any fluid overload. His A. fib is under good control with metoprolol ER 25 mg on a daily basis. He is still expressing shortness of breath. Pulse ox on room air is around 96%. No exertional oxygen desaturation. He has no significant cough or sputum production. No chest pain. No nausea vomiting or dizziness. His white cell count is at 12.4 with hemoglobin of 18. Creatinine is at 1.4 consistent with chronic kidney disease. ProBNP level was 410. Troponin 3 were negative. He also has EKG that showing atrial fibrillation with some T-wave inversions inferolaterally. His atrial fibrillation was under good control for now. Review of Systems Patient reports no fever, no night sweats, no significant weight gain, no significant weight loss, and no exercise intolerance; tired a lot and no energy. He reports shortness of breath when walking but reports no chest pain, no arm pain on exertion, no shortness of breath when lying down, no palpitations, and no known heart murmur. He reports cough, wheezing, and shortness of breath but reports no coughing up blood and no sleep apnea. He reports GERD but reports no abdominal pain, no nausea, no vomiting, no constipation, normal appetite, no diarrhea, not vomiting blood, and no dyspepsia. He reports arthralgias/joint pain and back pain but reports no muscle aches, no muscle weakness, and no swelling in the extremities. He reports no dry eyes, no vision change, and no irritation. He reports no difficulty hearing and no ear pain. He reports no frequent nosebleeds, no nose problems, and no sinus problems. He reports no sore throat, no bleeding gums, no snoring, no dry mouth, no mouth ulcers, no oral abnormalities, and no teeth problems. He reports no incontinence, no difficulty urinating, no hematuria, and no increased frequency. He reports no abnormal mole, no jaundice, no rashes, and no laceration. He reports no loss of consciousness, no weakness, no numbness, no seizures, no dizziness, no migraines, no headaches, and no tremor. He reports no depression, no sleep disturbances, feeling safe in a relationship, no alcohol abuse, no anxiety, no hallucinations, and no suicidal thoughts. He reports no fatigue. He reports no swollen glands, no bruising, and no excessive bleeding. He reports no runny nose, no sinus pressure, no itching, no hives, and no frequent sneezing. Past Medical History Past Medical History: Atrial Flutter, Coronary Artery Disease (CAD), Heart Failure, COPD, GERD/Reflux, Hearing Disorder / Deafness, Hyperlipidemia, Hypertension, Osteoarthritis (OA), Renal Disease, Vascular Disorder Additional Past Medical History / Comment(s): hx. gout, hx. colon polyps, circulation problems in legs, chronic kidney disease, stage III and history of shingles. History of Any Multi-Drug Resistant Organisms: None Reported Past Surgical History: Cholecystectomy, Heart Catheterization, Heart Catheterization With Stent Additional Past Surgical History / Comment(s): right bone graft to collar bone Past Anesthesia/Blood Transfusion Reactions: No Reported Reaction Date of Last Stent Placement:: 05/2020 Past Psychological History: No Psychological Hx Reported Smoking Status: Former smoker Past Alcohol Use History: None Reported Additional Past Alcohol Use History / Comment(s): quit smoking 2014, smoked 1ppd- 2PPD STARTED SMOKING AT AGE 14 Past Drug Use History: None Reported - Past Family History Mother Family Medical History: No Reported History Medications and Allergies Home Medications Medication Instructions Recorded Confirmed Type RX: Atorvastatin [Lipitor] 20 mg PO DAILY@1300 10/17/18 06/05/20 History RX: Budesonide/Formoterol Fumarate 2 puff INHALATION RT-BID@0100,1300 10/17/18 06/05/20 History [Symbicort 160-4.5 Mcg Inhaler] RX: Digoxin [Lanoxin] 125 mcg PO DAILY@129910/17/18 06/05/20 History RX: Metoprolol Succinate [Toprol 50 mg PO DAILY@129910/17/18 06/05/20 History XL] RX: cilostazoL [Pletal] 50 mg PO DAILY@129910/17/18 06/05/20 History RX: Fexofenadine HCl [Hanh 180 mg PO DAILY@129905/02/20 06/05/20 History Allergy] RX: Naproxen Sodium [Aleve] 220 mg PO DAILY PRN 05/02/20 06/05/20 History RX: Vitamin B Complex 1 cap PO DAILY@129905/02/20 06/05/20 History RX: diphenhydrAMINE [Benadryl] 25 mg PO BID PRN 05/02/20 06/05/20 History Apixaban [Eliquis] 2.5 mg PO BID@0100,1300 06/05/20 06/05/20 History Furosemide [Lasix] 20 mg PO DAILY@129906/05/20 06/05/20 History RX: Aspirin 81 mg PO DAILY@129906/05/20 06/05/20 History RX: Ticagrelor [Brilinta] 90 mg PO BID@0100,129906/05/20 06/05/20 History Allergies Allergy/AdvReac Type Severity Reaction Status Date / Time Iodinated Contrast Media AdvReac Diarrhea, Verified 06/05/20 21:53 [Iodinated Contrast- Oral RASH and IV Dye] Physical Exam Vitals: Vital Signs Temp Pulse Pulse Pulse Resp BP BP 08/03/20 08:01 98.0 F 68 18 121/74 06/06/20 03:00 97.9 F 65 17 120/79 06/06/20 01:23 98 F 72 17 130/84 06/05/20 22:22 98.7 F 90 20 122/92 06/05/20 21:27 91 22 119/95 06/05/20 21:08 90 24 06/05/20 20:24 97.7 F 69 20 139/97 Pulse Ox 06/06/20 08:01 95 06/06/20 03:00 95 06/06/20 01:23 96 06/05/20 22:22 97 06/05/20 21:27 97 06/05/20 21:08 06/05/20 20:24 94 L Intake and Output 06/05/20 06/06/20 06/06/20 22:59 06:59 14:59 Intake Total 150 60 Balance 150 60 Intake: Intake, IV Titration 60 Amount Sodium Chloride 0.9% 1, 60 000 ml @ 20 mls/hr IV . Q24H [facility] Rx#:[id number] Oral 150 0 Other: Voiding Method Urinal Urinal Weight 90.718 kg General Appearance no diaphoresis, dyspnea, pallor, or respiratory distress and speech not interrupted by breaths, not cachectic, well nourished, and appears well. HEENT no pursed lip breathing, jugular venous distention, mucous membrane cyanosis, or perioral cyanosis and mallampati classification: class 1. Chest no retractions, rhonchi, hyperinflation, barrel chest, sternocleidomastoid muscle contractions, supraclavicular retractions, intercostal retractions, or decreased air movement and prolonged expiratory wheezing and decreased air movement. Heart no right ventricular heave, distant heart sounds, or s3 gallop. The rhythm is irregular consistent with chronic atrial fibrillation. No significant murmurs appreciated. GI bowel sounds: hyperactive (borborygmi) and diminished or absent. Extremities no cyanosis, clubbing, or edema. Neurologic no somnolence, confusion, or decreased mental status. Skin: General Appearance normal and (normal) normal except as noted. Results - Laboratory Findings CBC and BMP: 06/06/20 02:41 06/06/20 02:41 PT/INR, D-dimer PT 11.1 sec (9.0-12.0) 08/02/20 20:52 INR 1.1 (<1.2) 06/05/20 20:52 D-Dimer 0.53 mg/L FEU (<0.60) 06/06/20 09:26 Abnormal lab findings: Abnormal Labs 06/05/20 06/05/20 06/05/20 20:52 20:52 20:52 WBC 12.2 H RBC 6.29 H Hgb 18.4 H Hct 56.9 H Neutrophils # 8.7 H Monocytes # APTT 30.6 H BUN 22 H Creatinine 1.57 H Glucose 134 H Calcium 10.6 H 06/06/20 06/06/20 02:41 02:41 WBC 12.4 H RBC Hgb 18.0 H Hct 54.2 H Neutrophils # Monocytes # 1.2 H APTT BUN 23 H Creatinine 1.43 H Glucose 121 H Calcium - Diagnostic Findings Chest x-ray: image reviewed Assessment and Plan Plan: 1. Dyspnea on exertion - the patient has chronic exertional dyspnea. His shortness of breath is multifactorial. He is known to have triple-vessel disease and he underwent recent stenting of the LAD. He is obese. His.chronic claudication related to peripheral vascular disease. He has atrial fibrillation. He also has been deconditioned. He does have some mild COPD with an FEV1 of 72% of predicted on today's evaluation. Furthermore, pulmonary embolism is less likely as the patient is on long-term anticoagulation with Eliquis. Chest x-ray was noted. We'll proceed with a CAT scan of the chest, noncontrast study to evaluate this patient for any other contiguity factors in regards to his ongoing shortness of breath. Cardiology will be also placed in consultation. 2. Mild chronic obstructive pulmonary disease - The patient is stable and he has a mild COPD and his FEV1 was 72% and he is on Symbicort and albuterol yesika through the nebulizer BID 3. Chronic atrial fibrillation - rate is controlled with metoprolol and the patient on long-term and to coagulation with Eliquis. 4. Smoker -quit smoking in 10/2016 5. History of pleural effusion -past post VATS with pleurodesis and there is no evidence of any fluid recurrence. 6. Hypertensive disorder 7. Chronic renal failure - she has mild chronic kidney disease in the most recent creatinine following the cardiac catheterization was 1.16 with a GFR of 60. The most recent creatinine is up to 1.4 consistent with chronic stage III kidney disease 8. Coronary arteriosclerosis - is found to have triple-vessel disease. He was found to be not a good candidate for cardiac surgery/bypass surgery and the patient was given a coronary stent in his LAD where he had an 80% proximal LAD lesion after utilizing an Impela device. 9. Peripheral arterial occlusive disease -with secondary claudication Plan Proceed with a noncontrast CAT scan of the chest Continue bronchodilators [id number] with [facility] Assessment home O2 oxygen need Continue aspirin, Brillita and Eliquis. Consider a functional study such as a cardiac test test to rule out any ongoing ischemia contributing to shortness of breath.
[2020-06-06] MEDS ORDERED: DIGOXIN 125 MCG TAB PO SCH (13:00)
[2020-06-06] MEDS: METOPROLOL SUCCINATE (ER) 50 MG TAB.ER.24H PO SCH (13:02)
[2020-06-06] MEDS: ASPIRIN 81 MG PO SCH (13:02)
[2020-06-06] MEDS: LORATADINE 10 MG TAB PO SCH (13:02)
[2020-06-06] MEDS: ATORVASTATIN 20 MG TAB PO SCH (13:03)
--- NOTE | 2020-06-06 14:06 | P.HPIM ---
History of Present Illness This is a pleasant 79 years old male with past medical history of coronary artery disease, hypertension, hyperlipidemia, COPD and follow-up as both Dr. Patrick. Patient recently had 3 vessel coronary artery disease per cardiac cat h with Dr. Monson however patient refused for surgery. This time he presents because of dyspnea, more with exertion. However patient denies chest pain, he has only mild occasional coughing. Vitals are stable and he is saturating 94% on 2 L oxygen via nasal cannula, he has mild leukocytosis of 12.4, creatinine is slightly elevated at 1.4, baseline is 1.1, rest of CBC and BMP is unremarkable, glucose is controlled, serial troponins are -0.018, 0.020 and 0.021. ProBNP is 1160 EKG showing sinus rhythm at 89 with QTC 447, he has some ST depression on V5-V6 D-dimer is normal limits at 0.53 Chest x-ray: No acute process. In the emergency room patient was given Brillinta , which was started by cardiology team and started on Plavix. Also recommended to continue with aspirin and Eliquis Chest CT without contrast: Small focus of groundglass infiltrate in the right upper lobe posteriorly, calcified pleural plaques and parenchymal granuloma, descending thoracic aortic aneurysm about 3.7 cm. Review of Systems CONSTITUTIONAL: No fever, no malaise, no fatigue. HEENT: No recent visual problems or hearing problems. Denied any sore throat. CARDIOVASCULAR: No orthopnea, PND, no palpitations, no syncope. PULMONARY: No shortness of breath, no cough, no hemoptysis. GASTROINTESTINAL: No diarrhea, no nausea, no vomiting, no abdominal pain. Normoactive bowel sounds. NEUROLOGICAL: No headaches, no weakness, no numbness. HEMATOLOGICAL: Denies any bleeding or petechiae. GENITOURINARY: Denies any burning micturition, frequency, or urgency. MUSCULOSKELETAL/RHEUMATOLOGICAL: Denies any joint pain, swelling, or any muscle pain. ENDOCRINE: Denies any polyuria or polydipsia. Past Medical History Past Medical History: Atrial Flutter, Coronary Artery Disease (CAD), Heart Failure, COPD, GERD/Reflux, Hearing Disorder / Deafness, Hyperlipidemia, Hypertension, Osteoarthritis (OA), Renal Disease, Vascular Disorder Additional Past Medical History / Comment(s): hx. gout, hx. colon polyps, cir culation problems in legs, slight decreased kidney function, shingles History of Any Multi-Drug Resistant Organisms: None Reported Past Surgical History: Cholecystectomy, Heart Catheterization, Heart Catheterization With Stent Additional Past Surgical History / Comment(s): right bone graft to collar bone Past Anesthesia/Blood Transfusion Reactions: No Reported Reaction Date of Last Stent Placement:: 05/2020 Past Psychological History: No Psychological Hx Reported Smoking Status: Former smoker Past Alcohol Use History: None Reported Additional Past Alcohol Use History / Comment(s): quit smoking 2014, smoked 1ppd- 2PPD STARTED SMOKING AT AGE 14 Past Drug Use History: None Reported - Past Family History Mother Family Medical History: No Reported History Medications and Allergies Home Medications Medication Instructions Recorded Confirmed Type Atorvastatin [Lipitor] 20 mg PO DAILY@129910/17/18 06/05/20 History Budesonide/Formoterol Fumarate 2 puff INHALATION RT-BID@0100,129910/17/18 06/05/20 History [Symbicort 160-4.5 Mcg Inhaler] Digoxin [Lanoxin] 125 mcg PO DAILY@129910/17/18 06/05/20 History Metoprolol Succinate [Toprol XL] 50 mg PO DAILY@129910/17/18 06/05/20 History cilostazoL [Pletal] 50 mg PO DAILY@129910/17/18 06/05/20 History Fexofenadine HCl [Hanh Allergy] 180 mg PO DAILY@129905/02/20 06/05/20 History Naproxen Sodium [Aleve] 220 mg PO DAILY PRN 05/02/20 06/05/20 History Vitamin B Complex 1 cap PO DAILY@129905/02/20 06/05/20 History diphenhydrAMINE [Benadryl] 25 mg PO BID PRN 05/02/20 06/05/20 History Apixaban [Eliquis] 2.5 mg PO BID@0100,1300 06/05/20 06/05/20 History Aspirin 81 mg PO DAILY@129906/05/20 06/05/20 History Furosemide [Lasix] 20 mg PO DAILY@129906/05/20 06/05/20 History Ticagrelor [Brilinta] 90 mg PO BID@0100,1300 06/05/20 06/05/20 History Allergies Allergy/AdvReac Type Severity Reaction Status Date / Time Iodinated Contrast Media AdvReac Diarrhea, Verified 06/05/20 21:53 [Iodinated Contrast- Oral RASH and IV Dye] Physical Exam Vitals: Vital Signs Temp Pulse Pulse Pulse Resp BP BP 06/06/20 03:00 97.9 F 65 17 120/79 06/06/20 01:23 98 F 72 17 130/84 06/05/20 22:22 98.7 F 90 20 122/92 06/05/20 21:27 91 22 119/95 06/05/20 21:08 90 24 06/05/20 20:24 97.7 F 69 20 139/97 Pulse Ox 06/06/20 03:00 95 06/06/20 01:23 96 06/05/20 22:22 97 06/05/20 21:27 97 06/05/20 21:08 06/05/20 20:24 94 L Intake and Output 06/05/20 06/06/20 06/06/20 22:59 06:59 14:59 Intake Total 150 60 Balance 150 60 Intake: Intake, IV Titration 60 Amount Sodium Chloride 0.9% 1, 60 000 ml @ 20 mls/hr IV . Q24H [facility] Rx#:[id number] Oral 150 0 Other: Voiding Method Urinal Weight 90.718 kg GENERAL: The patient is alert and oriented x3, not in any acute distress. Well developed, well nourished. HEENT: Pupils are round and equally reacting to light. EOMI. No scleral icterus. No conjunctival pallor. Normocephalic, atraumatic. No pharyngeal erythema. No thyromegaly. CARDIOVASCULAR: S1 and S2 present. No murmurs, rubs, or gallops. PULMONARY: Chest is clear to auscultation, no wheezing or crackles. ABDOMEN: Soft, nontender, nondistended, normoactive bowel sounds. No palpable organomegaly. MUSCULOSKELETAL: No joint swelling or deformity. EXTREMITIES: No cyanosis, clubbing, or pedal edema. NEUROLOGICAL: Gross neurological examination did not reveal any focal deficits. SKIN: No rashes. No petechiae Results CBC & Chem 7: 06/06/20 02:41 06/06/20 02:41 Labs: Abnormal Lab Results - Last 24 Hours (Table) 06/05/20 06/05/20 06/05/20 Range/Units 20:52 20:52 20:52 WBC 12.2 H (3.8-10.6) k/uL RBC 6.29 H (4.30-5.90) m/uL Hgb 18.4 H (13.0-17.5) gm/dL Hct 56.9 H (39.0-53.0) % Neutrophils # 8.7 H (1.3-7.7) k/uL Monocytes # (0-1.0) k/uL APTT 30.6 H (22.0-30.0) sec BUN 22 H (9-20) mg/dL Creatinine 1.57 H (0.66-1.25) mg/dL Glucose 134 H (74-99) mg/dL Calcium 10.6 H (8.4-10.2) mg/dL 06/06/20 06/06/20 Range/Units 02:41 02:41 WBC 12.4 H (3.8-10.6) k/uL RBC (4.30-5.90) m/uL Hgb 18.0 H (13.0-17.5) gm/dL Hct 54.2 H (39.0-53.0) % Neutrophils # (1.3-7.7) k/uL Monocytes # 1.2 H (0-1.0) k/uL APTT (22.0-30.0) sec BUN 23 H (9-20) mg/dL Creatinine 1.43 H (0.66-1.25) mg/dL Glucose 121 H (74-99) mg/dL Calcium (8.4-10.2) mg/dL Thrombosis Risk Factor Assmnt - Choose All That Apply Any of the Below Risk Factors Present?: Yes Each Factor Represents 1 point: Abnormal pulmonary function (COPD), History of prior major surgery (<1month) Other Risk Factors: Yes Each Risk Factor Represents 3 Points: Age 75 years or older Other congenital or acquired thrombophilia - If yes, enter type in comment: No Thrombosis Risk Factor Assessment Total Risk Factor Score: 5 Thrombosis Risk Factor Assessment Level: High Risk Assessment and Plan Assessment: Acute dyspnea, mostly related to Coronary artery disease, recent cardiac cath showing total occlusion of the RCA with severe disease of LAD and circumflex, patient refused heart surgery before. Rule out pulmonary causes. Hypertension Hyperlipidemia Recently diagnosed with atrial fibrillation and started on anticoagulation Peripheral artery disease with bilateral occluded SFA and bilateral popliteal arteries COPD, not in acute exacerbation Plan: this is a pleasant 79 years old male who presents with dyspnea, suspicious of coronary artery disease, patient refused heart surgery for his triple coronary artery disease. Continue with aspirin and Plavix. Continue with the Eliquis . Cardiology and pulmonary on the case. Follow-up echocardiogram Labs and medication were reviewed.. Continue same treatment. Continue with symptomatic treatment. Resume home medication. Monitor lytes and vitals. DVT and GI prophylaxis. Further recommendations of the clinical course of the patient DVT prophy Roberto GI Prophylaxis: Pepcid PT/OT: Pending
--- NOTE | 2020-06-06 15:00 | ECHOF ---
Referral Reason:sob s/p pci MEASUREMENTS -------- HEIGHT: 162.6 cm WEIGHT: 90.7 kg BP: 121/7 IVSd: 1.2 cm (0.6 - 1.1) LVIDd: 4.9 cm (3.9 - 5.3) LVPWd: 1.2 cm (0.6 - 1.1) IVSs: 1.7 cm LVIDs: 4.4 cm LVPWs: 1.5 cm LA Diam: 3.7 cm (2.7 - 3.8) RVIDd: 3.4 cm (< 3.3) LAESV Index (A-L): 27.72 ml/m Ao Diam: 3.5 cm (2.0 - 3.7) AV Cusp: 1.6 cm (1.5 - 2.6) EPSS: 0.7 cm RAP: 5.00 mmHg RVSP: 31.78 mmHg MV EF SLOPE: 195.59 mm/s (70 - 150) MV EXCURSION: 23.25 mm (> 18.000) FINDINGS -------- The rhythm appears to be atrial flutter. This was a technically adequate study. The left ventricular size is normal. There is borderline concentric left ventricular hypertrophy. Overall left ventricular systolic function is moderately impaired with, an EF between 35 - 40 %. The right ventricle is mildly enlarged. Normal LA size by volume 22+/-6 ml/m2. The right atrium is normal in size. Lipomatous Hypertrophy of the atrial septum is present There is mild aortic valve sclerosis. The mitral valve leaflets are mildly thickened. Mild mitral regurgitation is present. Mild tricuspid regurgitation present. Right ventricular systolic pressure is normal at < 35 mmHg. The pulmonic valve was not well visualized. The aortic root size is normal. Normal inferior vena cava with normal inspiratory collapse consistent with estimated right atrial pre ssure of 5 mmHg. There is no pericardial effusion. CONCLUSIONS -------- 1. The left ventricular size is normal. 2. There is borderline concentric left ventricular hypertrophy. 3. Overall left ventricular systolic function is moderately impaired with, an EF between 35 - 40 %. 4. The right ventricle is mildly enlarged. 5. Lipomatous Hypertrophy of the atrial septum is present 6. There is mild aortic valve sclerosis. 7. The mitral valve leaflets are mildly thickened. 8. Mild mitral regurgitation is present. 9. Mild tricuspid regurgitation present. 10. There is no pericardial effusion. ADMINISTRATIVE SUPPORT ASS[employer]: Evelin Naranjo RDCS
[2020-06-06] MEDS: SODIUM CHLORIDE 0.9% 1,000 ML IV SCH (22:36)
[2020-06-07] MEDS: APIXABAN 2.5 MG TABLET PO SCH ×2 (00:01→12:28)
[2020-06-07] MEDS: CLOPIDOGREL 75 MG TAB PO SCH (08:08)
[2020-06-07] MEDS: FAMOTIDINE 20 MG TAB PO SCH (08:08)
[2020-06-07] MEDS ORDERED: FUROSEMIDE 10 MG/ML 4 ML VIAL IV STA (09:04)
[2020-06-07] MEDS: SYMBICORT 160-4.5 MCG INHALER INHALATION SCH ×2 (09:17→19:47)
[2020-06-07] MEDS: methylPREDNISolone SOD SUCCI 40 MG/ML 1 ML VIAL IV SCH ×2 (09:33→16:36)
[2020-06-07] MEDS: DIGOXIN 62.5 MCG TAB PO SCH (09:36)
--- NOTE | 2020-06-07 12:25 | P.PN ---
Subjective Progress Note Date: 06/07/20 A 79-year-old male patient was hospitalized yesterday because of shortness of b reath. In fact I saw this patient my office on 05/26/2020 for the same reason. At that time the patient was having shortness of breath with limited amount of activity. He is known to me. He has COPD with an FEV1 of 70% of predicted consistent with mild COPD and the patient is demented on Symbicort. The patient has no previous history of DVT or pulmonary embolism. I referred this patient to cardiology. The patient underwent cardiac catheterization on 05/04/2020 and the patient was found to have heavily calcified right and left coronary system. There was chronic total occlusion of the RCA with collateral flow from the left system. There was severe disease involving the first OM branch of circumflex. There was also severe disease involving the proximal LAD. The patient was not found to be a good surgical candidate. Ideally he would have required a cardiac revascularization surgery. Based on that, he was given the option of cardiac catheterization and he was given a successful stent to his LAD. Note that this procedure was done after placing an ampulla and his left ventricle. There was selective bilateral, femoral artery for clue angiogram that showed chronic occlusion and severe peripheral vascular disease. Chest x-ray that was done in the hospital on 05/14/2020 showed no acute abnormalities. Currently the patient is still in atrial fibrillation. He is on a combination of aspirin and Brillinta he is also taking Eliquis 2.5 mg twice a day. He is on Lasix 20 mgby mouth daily and there are no signs of any fluid overload. His A. fib is under good control with metoprolol ER 25 mg on a daily basis. He is still expressing shortness of breath. Pulse ox on room air is around 96%. No exertional oxygen desaturation. He has no significant cough or sputum production. No chest pain. No nausea vomiting or dizziness. His white cell count is at 12.4 with hemoglobin of 18. Creatinine is at 1.4 consistent with chronic kidney disease. ProBNP level was 410. Troponin 3 were negative. He also has EKG that showing atrial fibrillation with some T-wave inversions inferolaterally. His atrial fibrillation was under good control for now. 06/07/2020, the patient is still having some exertional dyspnea. Pulse ox is ranging from 90-92% on room air urine with activity. He remains in atrial fibrillation. Echocardiac John was done and the patient was found to have an ejection fraction of 30-35%. CAT scan of the chest was also done and showed background COPD. No other acute of the mouth is noted and there is calcified pleural plaques and parenchymal granuloma. No evidence of any pneumonia. No evidence of any lung masses. Aorta itself atelectatic in the ascending aorta measuring about 3.7 cm in size. Objective - Vital Signs Vital signs: Vital Signs Temp 98.3 F 06/07/20 08:12 Pulse 59 L 06/07/20 08:12 Resp 18 06/07/20 08:12 BP 133/79 06/07/20 08:12 Pulse Ox 96 06/07/20 08:12 Intake & Output 06/06/20 06/07/20 06/07/20 18:59 06:59 18:59 Intake Total 240 620 Output Total 600 250 Balance -360 370 Intake: Intake, IV Titration 240 Amount Sodium Chloride 0.9% 1, 240 000 ml @ 20 mls/hr IV . Q24H [facility] Rx#:[id number] Oral 620 Output: Urine 600 250 Other: Voiding Method Urinal Urinal Toilet # Voids 1 1 - Exam General Appearance no diaphoresis, dyspnea, pallor, or respiratory distress and speech not interrupted by breaths, not cachectic, well nourished, and appears well. HEENT no pursed lip breathing, jugular venous distention, mucous membrane cyanosis, or perioral cyanosis and mallampati classification: class 1. Chest no retractions, rhonchi, hyperinflation, barrel chest, sternocleidomastoid muscle contractions, supraclavicular retractions, intercostal retractions, or decreased air movement and prolonged expiratory wheezing and decreased air movement. Heart no right ventricular heave, distant heart sounds, or s3 gallop. The rhythm is irregular consistent with chronic atrial fibrillation. No significant murmurs appreciated. GI bowel sounds: hyperactive (borborygmi) and diminished or absent. Extremities no cyanosis, clubbing, or edema. Neurologic no somnolence, confusion, or decreased mental status. Skin: General Appearance normal and (normal) normal except as noted. - Labs CBC & Chem 7: 06/06/20 02:41 06/06/20 02:41 Assessment and Plan Plan: 1. Dyspnea on exertion - the patient has chronic exertional dyspnea. His shortness of breath is multifactorial. He is known to have triple-vessel disease and he underwent recent stenting of the LAD. He is obese. His.chronic claudication related to peripheral vascular disease. He has atrial fibrillation. He also has been deconditioned. He does have some mild COPD with an FEV1 of 72% of predicted on today's evaluation. Furthermore, pulmonary embolism is less likely as the patient is on long-term anticoagulation with Eliquis. Chest x-ray was noted. The CAT scan of the chest showed no evidence of any acute pneumonia. No evidence of any other abnormalities other than some background lower calcifi cation and thickening. As such there is no other significant abnormality the CAT scan of the chest contributing to this patient shortness of breath. 2. Mild chronic obstructive pulmonary disease - The patient is stable and he has a mild COPD and his FEV1 was 72% and he is on Symbicort and albuterol yesika through the nebulizer BID 3. Chronic atrial fibrillation - rate is controlled with metoprolol and the patient on long-term and to coagulation with Eliquis. 4. Smoker -quit smoking in 10/2016 5. History of pleural effusion -past post VATS with pleurodesis and there is no evidence of any fluid recurrence. 6. Hypertensive disorder 7. Chronic renal failure - she has mild chronic kidney disease in the most recent creatinine following the cardiac catheterization was 1.16 with a GFR of 60. The most recent creatinine is up to 1.4 consistent with chronic stage III kidney disease 8. Coronary arteriosclerosis - is found to have triple-vessel disease. He was found to be not a good candidate for cardiac surgery/bypass surgery and the patient was given a coronary stent in his LAD where he had an 80% proximal LAD lesion after utilizing an Impela device. 9. 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 The patient also has a borderline concentric LVH. Plan I believe the patient shortness of breath is multifactorial. The patient has CHF with impaired LV function and the patient also has chronic atrial fibrillation. COPD is mild to moderate in severity are not see any signs of exacerbation. CAT scan of the chest is not showing any acute or rheumatic reason the patient is on long-term medical condition with Eliquis. We'll give the patient a dose of Lasix 40 mg IV push. We'll attempt steroids and we'll given him for many grams of IV Solu Medrol every 8 hours for the next 24 hours. We'll give him a laxative and the patient will be given Senokot-S as he has not had a bowel movement for the past 3-4 days. As mentioned, do not see any other obvious pulmonary reasons for this patient shortness of breath.
[2020-06-07] MEDS: LORATADINE 10 MG TAB PO SCH (12:26)
[2020-06-07] MEDS: ASPIRIN 81 MG PO SCH (12:26)
[2020-06-07] MEDS: ATORVASTATIN 20 MG TAB PO SCH (12:26)
[2020-06-07] MEDS: FUROSEMIDE 20 MG TAB PO SCH (12:29)
[2020-06-07] MEDS: METOPROLOL SUCCINATE (ER) 50 MG TAB.ER.24H PO SCH (12:33)
[2020-06-07] MEDS ORDERED: traMADol 50 MG TAB PO PRN (12:35)
[2020-06-07] MEDS ORDERED: SENNOSIDES 8.6 MG TAB PO PRN (12:46)
--- NOTE | 2020-06-07 13:33 | P.PN ---
Subjective HISTORY OF PRESENTING ILLNESS This is a pleasant 79-year-old male past medical history significant for paroxysmal atrial fibrillation on long-term anticoagulation, coronary artery disease status post recent revascularization, peripheral vascular disease, hypertension, dyslipidemia and COPD. He follows in the office with Dr. Monson. He is seen and examined sitting up in bed eating lunch in no acute distress. He denies symptoms of chest pain, dizziness or palpitations. He continues to feel short of breath with no real improvement since admission. Blood pressure 133/79 heart rate 59 afebrile maintaining oxygen saturation on nasal cannula. Laboratory data reviewed, d-dimer 0.53. CT of the chest revealed a small focus of ground glass infiltrate in the right upper lobe posterior he could be reflective of an acute inflammatory process, classified pleural plaques and parenchymal granuloma and a descending thoracic aortic aneurysm measuring 3.7 cm. Echocardiogram revealed impaired LV systolic function with ejection fraction 35-40% mildly enlarged right ventricle, mild MR and mild TR. Currently maintained on Eliquis 2.5 mg twice a day, aspirin 81 mg daily, atorvastatin 20 mg daily, Plavix 75 mg daily, digoxin 125 g daily, Lasix 20 mg oral daily, Toprol 50 mg daily PHYSICAL EXAMINATION CONSTITUTIONAL: No apparent distress. HEENT: Head is normocephalic. Pupils are equal, round. Sclerae anicteric. Mucous membranes of the mouth are moist. No JVD. No carotid bruit. CHEST EXAMINATION: Lungs are clear to auscultation. No chest wall tenderness is noted on palpation or with deep breathing. Diminished bilaterally. HEART EXAMINATION: Irregular rate and rhythm. S1, S2 heard. No murmurs, gallops or rub. EXTREMITIES: 2+ peripheral pulses, no lower extremity edema and no calf tenderness. ASSESSMENT Exertional shortness of breath, an acute coronary event has been ruled out. Leukocytosis Chronic renal failure Acute systolic heart failure Paroxysmal atrial fibrillation on long-term anticoagulation with Eliquis Coronary artery disease s/p recent PCI and athrectomy of the LAD Peripheral vascular disease Hypertension Dyslipidemia COPD Former nicotine dependence, quit 2014 PLAN Initiate aldactone 25 mg daily and lisionpril 2.5 mg daily to his regimen. Decrease digoxin to 62.5 mcg daily. Discontinue pletal. Continue aspirin, plavix and eliquis for 4-6 weeks post PCI and then we will stop the aspirin. Nurse Practitioner note has been reviewed, I agree with a documented findings and plan of care. Patient was seen and examined. Objective - Vital Signs Vital signs: Vital Signs Temp 98.3 F 06/07/20 08:12 Pulse 59 L 06/07/20 08:12 Resp 18 06/07/20 08:12 BP 133/79 06/07/20 08:12 Pulse Ox 96 06/07/20 08:12 Intake & Output 06/06/20 06/07/20 06/07/20 18:59 06:59 18:59 Intake Total 240 620 Output Total 066 709 [id number] Balance -360 370 -1050 Intake: Intake, IV Titration 240 Amount Sodium Chloride 0.9% 1, 240 000 ml @ 20 mls/hr IV . Q24H [facility] Rx#:[id number] Oral 620 Output: Urine 034 [id number] Other: Voiding Method Urinal Urinal Toilet # Voids 1 1 - Labs CBC & Chem 7: 06/06/20 02:41 06/06/20 02:41
[2020-06-07] MEDS: SPIRONOLACTONE 25 MG TAB PO SCH (14:41)
--- NOTE | 2020-06-07 15:23 | P.PN ---
Subjective Patient is admitted for shortness of breath etiology of shortness of breath is not clear rule out acute medicine syndromes patient had any of of around 35-40% patient clinically doesn't appear to be in significant heart failure patient was started on Lasix empirically patient is still on 4 L patient on systemic steroids as well as treated for COPD although patient is not wheezing at this time patient does have history of atrial fibrillation on Eliquis presently rate controlled. Patient is presently on 4 L of oxygen. Doesn't use any home O2. Patient's creatinine is 1.43 came down from 1.5 baseline is around 1.2 Constitutional: Denied any fatigue denied any fever. Cardio vascular: denied any chest pain, palpitations Gastrointestinal denied any nausea vomiting Pulmonary: Denied any shortness of breath on 4 L of oxygen cough Neurologic denied any new focal deficits All inpatient medications were reviewed and appropriate changes in these medications as dictated in the interval history and assessment and plan. Objective - Vital Signs Vital signs: Vital Signs Temp 98.3 F 06/07/20 08:12 Pulse 59 L 06/07/20 08:12 Resp 18 06/07/20 08:12 BP 133/79 06/07/20 08:12 Pulse Ox 96 06/07/20 08:12 Intake & Output 06/06/20 06/07/20 06/07/20 18:59 06:59 18:59 Intake Total 240 620 Output Total 365 616 4944 Balance -360 370 -1050 Intake: Intake, IV Titration 240 Amount Sodium Chloride 0.9% 1, 240 000 ml @ 20 mls/hr IV . Q24H [facility] Rx#:[id number] Oral 620 Output: Urine 913 [id number] Other: Voiding Method Urinal Urinal Toilet # Voids 1 1 - Exam PHYSICAL EXAMINATION: GENERAL: The patient is alert and oriented x3, not in any acute distress. Obese HEENT: Pupils are round and equally reacting to light. EOMI. No scleral icterus. No conjunctival pallor. Normocephalic, atraumatic. No pharyngeal erythema. No thyromegaly. CARDIOVASCULAR: S1 and S2 present. No murmurs, rubs, or gallops. PULMONARY: Chest is clear to auscultation, no wheezing or crackles. ABDOMEN: Soft, nontender, nondistended, normoactive bowel sounds. No palpable o rganomegaly. MUSCULOSKELETAL: No joint swelling or deformity. EXTREMITIES: No cyanosis, clubbing, or pedal edema. NEUROLOGICAL: Gross neurological examination did not reveal any focal deficits. SKIN: No rashes. - Labs CBC & Chem 7: 06/06/20 02:41 06/06/20 02:41 Assessment and Plan Plan: -Acute hypoxic respiratory failure: He appears to be multifactorial patient is being treated for COPD CHF exacerbation although there is no clear evidence of any of these patient has EF of around 35-40%. Patient is on oral Lasix at this time continue to wean off oxygen. Patient is also on the systemic steroids for possible mild COPD exacerbation -Hypertension -Hyperlipidemia -Atrial fibrillation on anticoagulation presently rate controlled -Peripheral artery disease -COPD -Ruled out acute coronary syndromes
[2020-06-08] MEDS: APIXABAN 2.5 MG TABLET PO SCH ×2 (00:33→12:00)
[2020-06-08] MEDS: methylPREDNISolone SOD SUCCI 40 MG/ML 1 ML VIAL IV SCH ×3 (00:34→15:10)
[2020-06-08] MEDS: SODIUM CHLORIDE 0.9% 1,000 ML IV SCH ×2 (03:30→21:19)
[2020-06-08 06:37] LABS: Glucose,Whole Blood 218 mg/dL (75-99)
[2020-06-08 07:27] LABS: Calcium 9.8 mg/dL (8.4-10.2); Potassium 4.7 mmol/L (3.5-5.1)
[2020-06-08] MEDS: SYMBICORT 160-4.5 MCG INHALER INHALATION SCH ×2 (07:53→19:23)
[2020-06-08] MEDS: INSULIN ASPART (NovoLOG) 100 UNIT/ML VIAL SQ SCH ×4 (08:15→20:59)
[2020-06-08] MEDS: FAMOTIDINE 20 MG TAB PO SCH (08:15)
[2020-06-08] MEDS: DIGOXIN 62.5 MCG TAB PO SCH (08:16)
[2020-06-08] MEDS: CLOPIDOGREL 75 MG TAB PO SCH (08:16)
[2020-06-08] MEDS: SPIRONOLACTONE 25 MG TAB PO SCH (08:16)
[2020-06-08 11:38] LABS: ABG HCO3 23 mmol/L (21-25); ABG Oxygen Saturation 93.4 % (94-97); ABG PCO2 37 mmHg (35-45); ABG PO2 64 mmHg (83-108); ABG TCO2 24 mmol/L (19-24); Allen Test Performed? Yes
[2020-06-08 11:53] LABS: Glucose,Whole Blood 225 mg/dL (75-99)
[2020-06-08] MEDS: METOPROLOL SUCCINATE (ER) 50 MG TAB.ER.24H PO SCH (11:59)
[2020-06-08] MEDS: LORATADINE 10 MG TAB PO SCH (11:59)
[2020-06-08] MEDS: FUROSEMIDE 20 MG TAB PO SCH (11:59)
[2020-06-08] MEDS: ATORVASTATIN 20 MG TAB PO SCH (11:59)
[2020-06-08] MEDS: ASPIRIN 81 MG PO SCH (11:59)
--- NOTE | 2020-06-08 12:27 | P.PN ---
Subjective Progress Note Date: 06/08/20 A 79-year-old male patient was hospitalized yesterday because of shortness of b reath. In fact I saw this patient my office on 05/26/2020 for the same reason. At that time the patient was having shortness of breath with limited amount of activity. He is known to me. He has COPD with an FEV1 of 70% of predicted consistent with mild COPD and the patient is demented on Symbicort. The patient has no previous history of DVT or pulmonary embolism. I referred this patient to cardiology. The patient underwent cardiac catheterization on 05/04/2020 and the patient was found to have heavily calcified right and left coronary system. There was chronic total occlusion of the RCA with collateral flow from the left system. There was severe disease involving the first OM branch of circumflex. There was also severe disease involving the proximal LAD. The patient was not found to be a good surgical candidate. Ideally he would have required a cardiac revascularization surgery. Based on that, he was given the option of cardiac catheterization and he was given a successful stent to his LAD. Note that this procedure was done after placing an ampulla and his left ventricle. There was selective bilateral, femoral artery for clue angiogram that showed chronic occlusion and severe peripheral vascular disease. Chest x-ray that was done in the hospital on 05/14/2020 showed no acute abnormalities. Currently the patient is still in atrial fibrillation. He is on a combination of aspirin and Brillinta he is also taking Eliquis 2.5 mg twice a day. He is on Lasix 20 mgby mouth daily and there are no signs of any fluid overload. His A. fib is under good control with metoprolol ER 25 mg on a daily basis. He is still expressing shortness of breath. Pulse ox on room air is around 96%. No exertional oxygen desaturation. He has no significant cough or sputum production. No chest pain. No nausea vomiting or dizziness. His white cell count is at 12.4 with hemoglobin of 18. Creatinine is at 1.4 consistent with chronic kidney disease. ProBNP level was 410. Troponin 3 were negative. He also has EKG that showing atrial fibrillation with some T-wave inversions inferolaterally. His atrial fibrillation was under good control for now. 06/07/2020, the patient is still having some exertional dyspnea. Pulse ox is ranging from 90-92% on room air urine with activity. He remains in atrial fibrillation. Echocardiac John was done and the patient was found to have an ejection fraction of 30-35%. CAT scan of the chest was also done and showed background COPD. No other acute of the mouth is noted and there is calcified pleural plaques and parenchymal granuloma. No evidence of any pneumonia. No evidence of any lung masses. Aorta itself atelectatic in the ascending aorta measuring about 3.7 cm in size. 06/08/2020, the patient is doing well and no complaints. Would like to make sure that he is oxygenating well. I don't think the pulse ox is correlating well as the patient is in atrial fibrillation. I'm going to order a blood gases on room air oxygen. The patient otherwise doing well. No specific complaints. No nausea or vomiting. No chest pain. He has Exertional dyspnea. His A. fib is under good control. He remains on long-term anticoagulation. He was started on IV Solu-Medrol yesterday and is currently receiving 40 mg IV Solu-Medrol every 8 hours. The lungs are essentially clear. He is still on 40 collection by nasal cannula and oxygen patient is going to be confirmed by blood gas. Objective - Vital Signs Vital signs: Vital Signs Temp 98.4 F 06/08/20 08:07 Pulse 69 06/08/20 08:07 Resp 16 06/08/20 08:07 BP 118/76 06/08/20 08:07 Pulse Ox 91 L 06/08/20 10:04 Intake & Output 06/07/20 06/08/20 06/08/20 18:59 06:59 18:59 Output Total 1050 300 Balance -1050 -300 Output: Urine 1050 300 Other: Voiding Method Toilet Urinal Urinal # Voids 1 - Exam General Appearance no diaphoresis, dyspnea, pallor, or respiratory distress and speech not interrupted by breaths, not cachectic, well nourished, and appears well. HEENT no pursed lip breathing, jugular venous distention, mucous membrane cyanosis, or perioral cyanosis and mallampati classification: class 1. Chest no retractions, rhonchi, hyperinflation, barrel chest, sternocleidomastoid muscle contractions, supraclavicular retractions, intercostal retractions, or decreased air movement and prolonged expiratory wheezing and decreased air movement. Heart no right ventricular heave, distant heart sounds, or s3 gallop. The rhythm is irregular consistent with chronic atrial fibrillation. No significant murmurs appreciated. GI bowel sounds: hyperactive (borborygmi) and diminished or absent. Extremities no cyanosis, clubbing, or edema. Neurologic no somnolence, confusion, or decreased mental status. Skin: General Appearance normal and (normal) normal except as noted. - Labs CBC & Chem 7: 06/06/20 02:41 06/08/20 06:55 Labs: Abnormal Lab Results - Last 24 Hours (Table) 06/08/20 06/08/20 06/08/20 Range/Units 06:35 06:55 11:51 Sodium 136 L (137-145) mmol/L BUN 26 H (9-20) mg/dL Creatinine 1.27 H (0.66-1.25) mg/dL Glucose 242 H (74-99) mg/dL POC Glucose (mg/dL) 218 H 225 H (75-99) mg/dL Assessment and Plan Plan: 1. Dyspnea on exertion - the patient has chronic exertional dyspnea. His shortness of breath is multifactorial. He is known to have triple-vessel disease and he underwent recent stenting of the LAD. He is obese. His.chronic claudication related to peripheral vascular disease. He has atrial fibrillation. He also has been deconditioned. He does have some mild COPD with an FEV1 of 72% of predicted on today's evaluation. Furthermore, pulmonary embolism is less likely as the patient is on long-term anticoagulation with Eliquis. Chest x-ray was noted. The CAT scan of the chest showed no evidence of any acute pneumonia. No evidence of any other abnormalities other than some background lower calcification and thickening. As such there is no other significant abnormality the CAT scan of the chest contributing to this patient shortness of breath. 2. Mild chronic obstructive pulmonary disease - The patient is stable and he has a mild COPD and his FEV1 was 72% and he is on Symbicort and albuterol yesika through the nebulizer BID 3. Chronic atrial fibrillation - rate is controlled with metoprolol and the patient on long-term and to coag ulation with Eliquis. 4. Smoker -quit smoking in 10/2016 5. History of pleural effusion -past post VATS with pleurodesis and there is no evidence of any fluid recurrence. 6. Hypertensive disorder 7. Chronic renal failure - she has mild chronic kidney disease in the most recent creatinine following the cardiac catheterization was 1.16 with a GFR of 60. The most recent creatinine is up to 1.4 consistent with chronic stage III kidney disease 8. Coronary arteriosclerosis - is found to have triple-vessel disease. He was found to be not a good candidate for cardiac surgery/bypass surgery and the patient was given a coronary stent in his LAD where he had an 80% proximal LAD lesion after utilizing an Impela device. 9. 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 The patient also has a borderline concentric LVH. Plan I believe the patient shortness of breath is multifactorial. The patient has C HF with impaired LV function and the patient also has chronic atrial fibrillation. COPD is mild to moderate in severity are not see any signs of exacerbation. CAT scan of the chest is not showing any acute or rheumatic reason the patient is on long-term medical condition with Eliquis. Continue IV Solu Medrol for another 24 hours. The patient will be placed on room air oxygen and a blood gas will be obtained to evaluate his oxygenation. We'll continue to follow.
--- NOTE | 2020-06-08 14:27 | P.PN ---
Subjective Patient is admitted for shortness of breath etiology of shortness of breath is not clear rule out acute medicine syndromes patient had any of of around 35-40% patient clinically doesn't appear to be in significant heart failure patient was started on Lasix empirically patient is still on 4 L patient on systemic steroids as well as treated for COPD although patient is not wheezing at this time patient does have history of atrial fibrillation on Eliquis presently rate controlled. Patient is presently on 4 L of oxygen. Doesn't use any home O2. Patient's creatinine is 1.43 came down from 1.5 baseline is around 1.2 06/08/2020 Patient looks better compared to yesterday will obtain PT consultation patient is still short of breath but of oxygen will continue with present treatment and management. Constitutional: Denied any fatigue denied any fever. Cardio vascular: denied any chest pain, palpitations Gastrointestinal denied any nausea vomiting Pulmonary: Patient is bit short of breath on room air Neurologic denied any new focal deficits All inpatient medications were reviewed and appropriate changes in these medications as dictated in the interval history and assessment and plan. Objective - Vital Signs Vital signs: Vital Signs Temp 98.4 F 06/08/20 08:07 Pulse 69 06/08/20 08:07 Resp 16 06/08/20 08:07 BP 118/76 06/08/20 08:07 Pulse Ox 91 L 06/08/20 10:04 Intake & Output 06/07/20 06/08/20 06/08/20 18:59 06:59 18:59 Output Total 1050 300 Balance -1050 -300 Output: Urine 1050 300 Other: Voiding Method Toilet Urinal Urinal # Voids 1 - Exam PHYSICAL EXAMINATION: GENERAL: The patient is alert and oriented x3, not in any acute distress. Obese HEENT: Pupils are round and equally reacting to light. EOMI. No scleral icterus. No conjunctival pallor. Normocephalic, atraumatic. No pharyngeal erythema. No thyromegaly. CARDIOVASCULAR: S1 and S2 present. No murmurs, rubs, or gallops. PULMONARY: Chest is clear to auscultation, no wheezing or crackles. ABDOMEN: Soft, nontender, nondistended, normoactive bowel sounds. No palpable organomegaly. MUSCULOSKELETAL: No joint swelling or deformity. EXTREMITIES: No cyanosis, clubbing, or pedal edema. NEUROLOGICAL: Gross neurological examination did not reveal any focal deficits. SKIN: No rashes. - Labs CBC & Chem 7: 06/06/20 02:41 06/08/20 06:55 Labs: Abnormal Lab Results - Last 24 Hours (Table) 06/08/20 06/08/20 06/08/20 Range/Units 06:35 06:55 11:35 ABG pO2 64 L (83-108) mmHg ABG O2 Saturation 93.4 L (94-97) % Sodium 136 L (137-145) mmol/L BUN 26 H (9-20) mg/dL Creatinine 1.27 H (0.66-1.25) mg/dL Glucose 242 H (74-99) mg/dL POC Glucose (mg/dL) 218 H (75-99) mg/dL 06/08/20 Range/Units 11:51 ABG pO2 (83-108) mmHg ABG O2 Saturation (94-97) % Sodium (137-145) mmol/L BUN (9-20) mg/dL Creatinine (0.66-1.25) mg/dL Glucose (74-99) mg/dL POC Glucose (mg/dL) 225 H (75-99) mg/dL Assessment and Plan Plan: -Acute hypoxic respiratory failure: He appears to be multifactorial patient is being treated for COPD CHF exacerbation although there is no clear evidence of any of these patient has EF of around 35-40%. Patient is on oral Lasix at this time continue to wean off oxygen. Patient is also on the systemic steroids for possible mild COPD exacerbation -Hypertension -Hyperlipidemia -Atrial fibrillation on anticoagulation presently rate controlled -Peripheral artery disease -COPD -Ruled out acute coronary syndromes
[2020-06-08] MEDS ORDERED: ONDANSETRON 4 MG/2 ML VIAL IVP PRN (16:23)
[2020-06-08 16:59] LABS: Glucose,Whole Blood 194 mg/dL (75-99)
[2020-06-08 20:43] LABS: Glucose,Whole Blood 229 mg/dL (75-99)
[2020-06-09] MEDS: APIXABAN 2.5 MG TABLET PO SCH ×2 (00:30→11:48)
[2020-06-09] MEDS: methylPREDNISolone SOD SUCCI 40 MG/ML 1 ML VIAL IV SCH ×2 (00:30→07:57)
[2020-06-09] MEDS ORDERED: CALCIUM CARBONATE 500 MG CHEWABLE PO PRN (01:30)
[2020-06-09 02:45] VITALS: PULSE 66
[2020-06-09 06:20] LABS: Glucose,Whole Blood 133 mg/dL (75-99)
[2020-06-09 07:28] LABS: Calcium 10.3 mg/dL (8.4-10.2)
[2020-06-09] MEDS: SYMBICORT 160-4.5 MCG INHALER INHALATION SCH (07:37)
[2020-06-09] MEDS: FAMOTIDINE 20 MG TAB PO SCH (07:57)
[2020-06-09] MEDS: SPIRONOLACTONE 25 MG TAB PO SCH (07:57)
[2020-06-09] MEDS: INSULIN ASPART (NovoLOG) 100 UNIT/ML VIAL SQ SCH ×2 (07:57→11:48)
[2020-06-09] MEDS: CLOPIDOGREL 75 MG TAB PO SCH (07:57)
[2020-06-09 08:02] VITALS: BP 128/72; RESP 16; TEMP 97.8
[2020-06-09] MEDS: DIGOXIN 62.5 MCG TAB PO SCH (08:19)
--- NOTE | 2020-06-09 11:26 | P.PN ---
Subjective Progress Note Date: 06/09/20 A 79-year-old male patient was hospitalized yesterday because of shortness of b reath. In fact I saw this patient my office on 05/26/2020 for the same reason. At that time the patient was having shortness of breath with limited amount of activity. He is known to me. He has COPD with an FEV1 of 70% of predicted consistent with mild COPD and the patient is demented on Symbicort. The patient has no previous history of DVT or pulmonary embolism. I referred this patient to cardiology. The patient underwent cardiac catheterization on 05/04/2020 and the patient was found to have heavily calcified right and left coronary system. There was chronic total occlusion of the RCA with collateral flow from the left system. There was severe disease involving the first OM branch of circumflex. There was also severe disease involving the proximal LAD. The patient was not found to be a good surgical candidate. Ideally he would have required a cardiac revascularization surgery. Based on that, he was given the option of cardiac catheterization and he was given a successful stent to his LAD. Note that this procedure was done after placing an ampulla and his left ventricle. There was selective bilateral, femoral artery for clue angiogram that showed chronic occlusion and severe peripheral vascular disease. Chest x-ray that was done in the hospital on 05/14/2020 showed no acute abnormalities. Currently the patient is still in atrial fibrillation. He is on a combination of aspirin and Brillinta he is also taking Eliquis 2.5 mg twice a day. He is on Lasix 20 mgby mouth daily and there are no signs of any fluid overload. His A. fib is under good control with metoprolol ER 25 mg on a daily basis. He is still expressing shortness of breath. Pulse ox on room air is around 96%. No exertional oxygen desaturation. He has no significant cough or sputum production. No chest pain. No nausea vomiting or dizziness. His white cell count is at 12.4 with hemoglobin of 18. Creatinine is at 1.4 consistent with chronic kidney disease. ProBNP level was 410. Troponin 3 were negative. He also has EKG that showing atrial fibrillation with some T-wave inversions inferolaterally. His atrial fibrillation was under good control for now. 06/07/2020, the patient is still having some exertional dyspnea. Pulse ox is ranging from 90-92% on room air urine with activity. He remains in atrial fibrillation. Echocardiac John was done and the patient was found to have an ejection fraction of 30-35%. CAT scan of the chest was also done and showed background COPD. No other acute of the mouth is noted and there is calcified pleural plaques and parenchymal granuloma. No evidence of any pneumonia. No evidence of any lung masses. Aorta itself atelectatic in the ascending aorta measuring about 3.7 cm in size. 06/08/2020, the patient is doing well and no complaints. Would like to make sure that he is oxygenating well. I don't think the pulse ox is correlating well as the patient is in atrial fibrillation. I'm going to order a blood gases on room air oxygen. The patient otherwise doing well. No specific complaints. No nausea or vomiting. No chest pain. He has Exertional dyspnea. His A. fib is under good control. He remains on long-term anticoagulation. He was started on IV Solu-Medrol yesterday and is currently receiving 40 mg IV Solu-Medrol every 8 hours. The lungs are essentially clear. He is still on 40 collection by nasal cannula and oxygen patient is going to be confirmed by blood gas. 06/09/2020, the patient remains on IV Solu-Medrol. No significant cough sputum production chest answer wheezing. The patient is on room air oxygen with a pulse ox level of 93%. He was given IV cefazolin. I do not appreciate any signs of infection on this patient. Cultures of been all negative. The covid 19 nasal swab by PCR came back negative. Objective - Vital Signs Vital signs: Vital Signs Temp 97.8 F 06/09/20 08:02 Pulse 66 06/09/20 08:02 Resp 16 06/09/20 08:02 BP 128/72 06/09/20 08:02 Pulse Ox 93 L 06/09/20 08:02 Intake & Output 06/08/20 06/09/20 06/09/20 18:59 06:59 18:59 Output Total 300 Balance -300 Output: Urine 300 Other: Voiding Method Urinal Urinal Urinal # Voids 1 - Exam General Appearance no diaphoresis, dyspnea, pallor, or respiratory distress and speech not interrupted by breaths, not cachectic, well nourished, and appears well. HEENT no pursed lip breathing, jugular venous distention, mucous membrane cyanosis, or perioral cyanosis and mallampati classification: class 1. Chest no retractions, rhonchi, hyperinflation, barrel chest, sternocleidomastoid muscle contractions, supraclavicular retractions, intercostal retractions, or decreased air movement and prolonged expiratory wheezing and decreased air movement. Heart no right ventricular heave, distant heart sounds, or s3 gallop. The rhythm is irregular consistent with chronic atrial fibrillation. No significant murmurs appreciated. GI bowel sounds: hyperactive (borborygmi) and diminished or absent. Extremities no cyanosis, clubbing, or edema. Neurologic no somnolence, confusion, or decreased mental status. Skin: General Appearance normal and (normal) normal except as noted. - Labs CBC & Chem 7: 06/06/20 02:41 06/09/20 06:45 Labs: Abnormal Lab Results - Last 24 Hours (Table) 06/08/20 06/08/20 06/08/20 Range/Units 11:35 11:51 16:54 ABG pO2 64 L (83-108) mmHg ABG O2 Saturation 93.4 L (94-97) % BUN (9-20) mg/dL Glucose (74-99) mg/dL POC Glucose (mg/dL) 225 H 194 H (75-99) mg/dL Calcium (8.4-10.2) mg/dL 06/08/20 06/09/20 06/09/20 Range/Units 20:41 06:17 06:45 ABG pO2 (83-108) mmHg ABG O2 Saturation (94-97) % BUN 31 H (9-20) mg/dL Glucose 137 H (74-99) mg/dL POC Glucose (mg/dL) 229 H 133 H (75-99) mg/dL Calcium 10.3 H (8.4-10.2) mg/dL Assessment and Plan Plan: 1. Dyspnea on exertion - the patient has chronic exertional dyspnea. His shortness of breath is multifactorial. He is known to have triple-vessel disease and he underwent recent stenting of the LAD. He is obese. His.chronic claudication related to peripheral vascular disease. He has atrial fibrillation. He also has been deconditioned. He does have some mild COPD with an FEV1 of 72% of predicted on today's evaluation. Furthermore, pulmonary embolism is less likely as the patient is on long-term anticoagulation with Eliquis. Chest x-ray was noted. The CAT scan of the chest showed no evidence of any acute pneumonia. No evidence of any other abnormalities other than some background lower calc ification and thickening. As such there is no other significant abnormality the CAT scan of the chest contributing to this patient shortness of breath. 2. Mild chronic obstructive pulmonary disease - The patient is stable and he has a mild COPD and his FEV1 was 72% and he is on Symbicort and albuterol yesika through the nebulizer BID 3. Chronic atrial fibrillation - rate is controlled with metoprolol and the patient on long-term and to coagulation with Eliquis. 4. Smoker -quit smoking in 10/2016 5. History of pleural effusion -past post VATS with pleurodesis and there is no evidence of any fluid recurrence. 6. Hypertensive disorder 7. Chronic renal failure - she has mild chronic kidney disease in the most recent creatinine following the cardiac catheterization was 1.16 with a GFR of 60. The most recent creatinine is up to 1.4 consistent with chronic stage III kidney disease 8. Coronary arteriosclerosis - is found to have triple-vessel disease. He was found to be not a good candidate for cardiac surgery/bypass surgery and the patient was given a coronary stent in his LAD where he had an 80% proximal LAD lesion after utilizing an Impela device. 9. 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 The patient also has a borderline concentric LVH. Plan Stop the IV Solu-Medrol Not sure of the effect of antibiotics was given. I do not think the patient is infected at this point in time. Shortness of breath is multifactorial as mentioned and patient is quite debilitated No other recommendations from the pulmonary standpoint.
[2020-06-09 11:37] LABS: Glucose,Whole Blood 165 mg/dL (75-99)
[2020-06-09] MEDS: ATORVASTATIN 20 MG TAB PO SCH (11:48)
[2020-06-09] MEDS: LORATADINE 10 MG TAB PO SCH (11:48)
[2020-06-09] MEDS: ASPIRIN 81 MG PO SCH (11:49)
[2020-06-09] MEDS: METOPROLOL SUCCINATE (ER) 50 MG TAB.ER.24H PO SCH (11:49)
[2020-06-09] MEDS: FUROSEMIDE 20 MG TAB PO SCH (11:49)
--- NOTE | 2020-06-09 17:06 | P.DS ---
Providers Date of admission: 06/05/20 21:40 Attending physician: Avtar Bradford MD Consults: 06/05/20 21:40 Consult Physician Routine Consulting Provider: Stef Monson Consult Reason/Comments: dyspnea, s/p cath Do you want consulting provider notified?: Yes 06/05/20 21:41 Consult Physician Routine Consulting Provider: Gladys Patrick Consult Reason/Comments: dyspnea Do you want consulting provider notified?: Yes Primary care physician: Joanne Bergman [facility] Course: Patient is admitted for shortness of breath etiology of shortness of breath is not clear rule out acute medicine syndromes patient had any of of around 35-40% patient clinically doesn't appear to be in significant heart failure patient was started on Lasix empirically patient is still on 4 L patient on systemic steroids as well as treated for COPD although patient is not wheezing at this time patient does have history of atrial fibrillation on Eliquis presently rate controlled. Patient is presently on 4 L of oxygen. Doesn't use any home O2. Patient's creatinine is 1.43 came down from 1.5 baseline is around 1.2 06/08/2020 Patient looks better compared to yesterday will obtain PT consultation patient is still short of breath but of oxygen will continue with present treatment and management. 06/09/2020 Patient is clinically doing well euvolemic at this time off oxygen saturating at 93% is being discharged today PHYSICAL EXAMINATION: GENERAL: The patient is alert and oriented x3, not in any acute distress. Obese HEENT: Pupils are round and equally reacting to light. EOMI. No scleral icterus. No conjunctival pallor. Normocephalic, atraumatic. No pharyngeal erythema. No thyromegaly. CARDIOVASCULAR: S1 and S2 present. No murmurs, rubs, or gallops. PULMONARY: Chest is clear to auscultation, no wheezing or crackles. ABDOMEN: Soft, nontender, nondistended, normoactive bowel sounds. No palpable organomegaly. MUSCULOSKELETAL: No joint swelling or deformity. EXTREMITIES: No cyanosis, clubbing, or pedal edema. NEUROLOGICAL: Gross neurological examination did not reveal any focal deficits. SKIN: No rashes. Assessment and Plan Plan: -Acute hypoxic respiratory failure: multifactoriaSecondary toCOPDEmma CHF exacerbation patient has systolic dysfunction with acute exacerbation along with atrial fibrillation. patient has EF of around 35-40%. Patient is on oral Lasix at this time continue to wean off oxygen. is not requiring any systemic steroids will be discharged on inhaled steroids inhalational treatments. Patient was started on a oral anti-correlation for atrial fibrillation -Hypertension -Hyperlipidemia -paroxysmalAtrial fibrillation on anticoagulation presently rate controlled -Peripheral artery disease -COPD -Ruled out acute coronary syndromes Patient Condition at Discharge: Fair Plan - Discharge Summary Discharge Rx Participant: No New Discharge Prescriptions: New Spironolactone [Aldactone] 25 mg PO DAILY #30 tab Cephalexin [Keflex] 500 mg PO Q8HR 7 Days #21 cap Famotidine [Pepcid] 20 mg PO BID #20 tab Clopidogrel [Plavix] 75 mg PO DAILY #30 tab traMADol HCl [Ultram] 50 mg PO QID PRN #20 tab PRN Reason: Pain/Discomfort lisinopriL [Zestril] 2.5 mg PO DAILY #30 tab Continue Digoxin [Lanoxin] 125 mcg PO DAILY@1300 cilostazoL [Pletal] 50 mg PO DAILY@1300 Budesonide/Formoterol Fumarate [Symbicort 160-4.5 Mcg Inhaler] 2 puff INHALATION RT-BID@0100,1300 Atorvastatin [Lipitor] 20 mg PO DAILY@1300 Metoprolol Succinate [Toprol XL] 50 mg PO DAILY@1300 diphenhydrAMINE [Benadryl] 25 mg PO BID PRN PRN Reason: as directed for procedure Vitamin B Complex 1 cap PO DAILY@1300 Fexofenadine HCl [Hanh Allergy] 180 mg PO DAILY@1300 Furosemide [Lasix] 20 mg PO DAILY@1300 Apixaban [Eliquis] 2.5 mg PO BID@0100,1300 Aspirin 81 mg PO DAILY@1300 Discontinued Naproxen Sodium [Aleve] 220 mg PO DAILY PRN PRN Reason: Pain Ticagrelor [Brilinta] 90 mg PO BID@0100,1300 Discharge Medication List Atorvastatin [Lipitor] 20 mg PO DAILY@1300 10/17/18 [History] Budesonide/Formoterol Fumarate [Symbicort 160-4.5 Mcg Inhaler] 2 puff INHALATION RT-BID@0100,1300 10/17/18 [History] Digoxin [Lanoxin] 125 mcg PO DAILY@1300 10/17/18 [History] Metoprolol Succinate [Toprol XL] 50 mg PO DAILY@1300 10/17/18 [History] cilostazoL [Pletal] 50 mg PO DAILY@1300 10/17/18 [History] Fexofenadine HCl [Hanh Allergy] 180 mg PO DAILY@1300 05/02/20 [History] Vitamin B Complex 1 cap PO DAILY@1300 05/02/20 [History] diphenhydrAMINE [Benadryl] 25 mg PO BID PRN 05/02/20 [History] Apixaban [Eliquis] 2.5 mg PO BID@0100,1300 06/05/20 [History] Aspirin 81 mg PO DAILY@1300 06/05/20 [History] Furosemide [Lasix] 20 mg PO DAILY@1300 06/05/20 [History] Cephalexin [Keflex] 500 mg PO Q8HR 7 Days #21 cap 06/09/20 [Rx] Clopidogrel [Plavix] 75 mg PO DAILY #30 tab 06/09/20 [Rx] Famotidine [Pepcid] 20 mg PO BID #20 tab 06/09/20 [Rx] Spironolactone [Aldactone] 25 mg PO DAILY #30 tab 06/09/20 [Rx] lisinopriL [Zestril] 2.5 mg PO DAILY #30 tab 06/09/20 [Rx] traMADol HCl [Ultram] 50 mg PO QID PRN #20 tab 06/09/20 [Rx] Follow up Appointment(s)/Referral(s): Stef Monson MD [STAFF PHYSICIAN] - 2 Weeks Joanne Bergman DO [Primary Care Provider] - 3 Days (office closed) Patient Instructions/Handouts: Dyspnea (DC) Discharge Disposition: HOME SELF-CARE
== END 2020-06-09 14:34 | disposition home or self-care (01) ==
LOC: EC 20:23 → 1SOBS 21:40
PROVIDERS: ADMIT Internal Medicine; ATTEND Internal Medicine
DX: I13.0 Hypertensive heart and chronic kidney disease with heart failure and stage 1 through stage 4 chronic kidney disease, or unspecified chronic kidney disease (principal); I50.21 Acute systolic (congestive) heart failure; J44.9 Chronic obstructive pulmonary disease, unspecified; I48.0 Paroxysmal atrial fibrillation; J96.01 Acute respiratory failure with hypoxia; E78.5 Hyperlipidemia, unspecified; I73.9 Peripheral vascular disease, unspecified; D72.829 Elevated white blood cell count, unspecified; I48.92 Unspecified atrial flutter; I25.10 Atherosclerotic heart disease of native coronary artery without angina pectoris; K21.9 Gastro-esophageal reflux disease without esophagitis; H91.90 Unspecified hearing loss, unspecified ear; M19.90 Unspecified osteoarthritis, unspecified site; M10.9 Gout, unspecified; E66.9 Obesity, unspecified; R91.8 Other nonspecific abnormal finding of lung field; J92.9 Pleural plaque without asbestos; J84.10 Pulmonary fibrosis, unspecified; I71.2 Thoracic aortic aneurysm, without rupture; I25.82 Chronic total occlusion of coronary artery; I77.1 Stricture of artery; N18.3 Chronic kidney disease, stage 3 (moderate); I77.9 Disorder of arteries and arterioles, unspecified; I08.1 Rheumatic disorders of both mitral and tricuspid valves; Z68.34 Body mass index [BMI] 34.0-34.9, adult; Z03.818 Encounter for observation for suspected exposure to other biological agents ruled out; Z95.5 Presence of coronary angioplasty implant and graft; Z79.01 Long term (current) use of anticoagulants; Z79.899 Other long term (current) drug therapy; Z79.51 Long term (current) use of inhaled steroids; Z79.52 Long term (current) use of systemic steroids; Z79.1 Long term (current) use of non-steroidal anti-inflammatories (NSAID); Z79.82 Long term (current) use of aspirin; Z91.041 Radiographic dye allergy status; Z86.010 Personal history of colon polyps; Z86.19 Personal history of other infectious and parasitic diseases; Z90.49 Acquired absence of other specified parts of digestive tract; Z87.891 Personal history of nicotine dependence; Z72.3 Lack of physical exercise; Z87.09 Personal history of other diseases of the respiratory system
CPT/HCPCS: 93005 ×2; 96365; 96366 ×2; 96375 ×3; 96376 ×3; 99285; 36415; 94640 ×7; 36600; 93306; 85379; 83880; 80048 ×4; 82553; 82805; 84484 ×2; 85025 ×2; 85610; 85730; 71046; 71250; G0378 ×5; U0003; J1940; J2920 ×3; J0690 ×3; J2405

== ENCOUNTER 2020-07-26 14:24 | Inpatient (IN) | payer MEDICARE, BC ==
--- NOTE | 2020-07-26 15:19 | ED ---
SOB HPI - General Source: EMS Mode of arrival: EMS Limitations: no limitations <Marycarmen Wayne - Last Filed: 07/26/20 16:54> <Jayson Schneider - Last Filed: 07/26/20 18:12> - General Chief Complaint: Shortness of Breath Stated Complaint: COPD exacerbation Time Seen by Provider: 07/26/20 14:26 - History of Present Illness Initial Comments: 79 yo male with history of CAD with PCI of LAD 05/13/20, HTN, HLD, atrial fibrillation presenting to the ER as transfer from [facility]. Patient states that he has felt week for that past 3-4 days. He states he almost fell today secondary to the weakness. He states he has had some shortness of breath wtih cough. But did not feel that the cough was too unusual for him with his history of COPD. Patient denies fevers at home, but was febrile at [facility]- they also noted patient to have low blood pressure. Patient states he had some nausea. Patient denied abdominal pain. US GB revealed polyps. No active infection. Patient WBC 2.59, HgB 14.7, electrolytes appeared within noncritical limits. Patient BUN elevated, Creatinine 2.11 which is nearly double his baseline. CXR no infiltrates or evidence of acute heart failure. Patietn Liver enzymes WNL. Patient digoxin levels 1.1. Lactic acid 2.6, initial troponin undetectable <0.017. Patient was not given antibiotics but was given albuterol and solumedrol diagnosed with a COPD exacerbation and transferred to our facility for continuity of care. UPon arrival patient denies SOB, chest pain, nausea, vomiting, abdominal or back pain. Denies leg swelling. Headache, visual changes, neck pain, weakness of specific limb. Endorses generalized weakness. Patient is afebrile on arrival he does not appear toxic. Covid test pending at [facility]. 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 Austin is aware. (Marycarmen Wayne) - Related Data Home Medications Medication Instructions Recorded Confirmed Atorvastatin [Lipitor] 20 mg PO DAILY@1300 10/17/18 06/05/20 Budesonide/Formoterol Fumarate 2 puff INHALATION RT-BID@0100,1300 10/17/18 06/05/20 [Symbicort 160-4.5 Mcg Inhaler] Digoxin [Lanoxin] 125 mcg PO DAILY@1300 10/17/18 06/05/20 Metoprolol Succinate [Toprol XL] 50 mg PO DAILY@1300 10/17/18 06/05/20 cilostazoL [Pletal] 50 mg PO DAILY@1300 10/17/18 06/05/20 Fexofenadine HCl [Hanh Allergy] 180 mg PO DAILY@1300 05/02/20 06/05/20 Vitamin B Complex 1 cap PO DAILY@1300 05/02/20 06/05/20 diphenhydrAMINE [Benadryl] 25 mg PO BID PRN 05/02/20 06/05/20 Apixaban [Eliquis] 2.5 mg PO BID@0100,1300 06/05/20 06/05/20 Aspirin 81 mg PO DAILY@1300 06/05/20 06/05/20 Furosemide [Lasix] 20 mg PO DAILY@1300 06/05/20 06/05/20 Previous Rx's Medication Instructions Recorded Cephalexin [Keflex] 500 mg PO Q8HR 7 Days #21 cap 06/09/20 Clopidogrel [Plavix] 75 mg PO DAILY #30 tab 06/09/20 Famotidine [Pepcid] 20 mg PO BID #20 tab 06/09/20 Spironolactone [Aldactone] 25 mg PO DAILY #30 tab 06/09/20 lisinopriL [Zestril] 2.5 mg PO DAILY #30 tab 06/09/20 traMADol HCl [Ultram] 50 mg PO QID PRN #20 tab 06/09/20 Allergies Allergy/AdvReac Type Severity Reaction Status Date / Time Iodinated Contrast Media AdvReac Diarrhea, Verified 06/05/20 21:53 [Iodinated Contrast- Oral RASH and IV Dye] Review of Systems ROS Other: All systems not noted in ROS Statement are negative. <Marycarmen Wayne - Last Filed: 07/26/20 16:54> ROS Other: All systems not noted in ROS Statement are negative. <Jayson Schneider - Last Filed: 07/26/20 18:12> ROS Statement: Those systems with pertinent positive or pertinent negative responses have been documented in the HPI. Past Medical History Past Medical History: Atrial Flutter, Coronary Artery Disease (CAD), Heart Failure, COPD, GERD/Reflux, Hearing Disorder / Deafness, Hyperlipidemia, Hypertension, Osteoarthritis (OA), Renal Disease, Vascular Disorder Additional Past Medical History / Comment(s): hx. gout, hx. colon polyps, circulation problems in legs, slight decreased kidney function, shingles History of Any Multi-Drug Resistant Organisms: None Reported Past Surgical History: Cholecystectomy, Heart Catheterization, Heart Catheterization With Stent Additional Past Surgical History / Comment(s): right bone graft to collar bone Past Anesthesia/Blood Transfusion Reactions: No Reported Reaction Date of Last Stent Placement:: 05/2020 Past Psychological History: No Psychological Hx Reported Smoking Status: Former smoker Past Alcohol Use History: None Reported Past Drug Use History: None Reported - Past Family History Mother Family Medical History: No Reported History <Marycarmen Wayne - Last Filed: 07/26/20 16:54> General Exam Limitations: no limitations <Marycarmen Wayne - Last Filed: 07/26/20 16:54> - General Exam Comments Initial Comments: General: The patient is awake and alert, in no distress Eye: +3 mm pupils are equal, round and reactive to light, extra-ocular mo vements are intact. No nystagmus. There is normal conjunctiva bilaterally. No signs of icterus. Ears, nose, mouth and throat: There are moist mucous membranes and no oral lesions. Neck: The neck is supple, there is no tenderness or JVD. Cardiovascular: There is a regular rate and rhythm. No murmur, rub or gallop is appreciated. Respiratory: Respirations are non-labored, breath sounds are equal. There are some rhonci appreciated, possible base rales. No wheeze. Gastrointestinal: Soft, non-distended, non-tender abdomen without masses or organomegaly noted. There is no rebound or guarding present. Musculoskeletal: Normal ROM, no tenderness. Strength 5/5. Sensation intact. Radial pulses equal bilaterally 2+. Neurological: A&O x 3. CN II-XII intact grossly, There are no obvious motor or sensory deficits. Coordination appears grossly intact. Speech is normal. Skin: Skin is warm and dry and no rashes or lesions are noted. No LE edema. Psychiatric: Cooperative, appropriate mood & affect, normal judgment. (Kinter,Marycarmen L) Course Vital Signs 07/26/20 07/26/20 07/26/20 14:27 14:30 14:39 Temperature 98.4 F Pulse Rate 104 H Respiratory 18 18 Rate Blood Pressure 114/56 108/58 O2 Sat by Pulse 97 Oximetry 07/26/20 07/26/20 07/26/20 15:30 15:38 16:00 Temperature Pulse Rate 69 Respiratory 16 16 16 Rate Blood Pressure 110/74 103/72 103/72 O2 Sat by Pulse 95 96 95 Oximetry 07/26/20 17:59 Temperature Pulse Rate 78 Respiratory 16 Rate Blood Pressure 107/67 O2 Sat by Pulse 97 Oximetry Medical Decision Making <Marycarmen Wayne - Last Filed: 07/26/20 16:54> <Jayson Schneider - Last Filed: 07/26/20 18:12> - Medical Decision Making Transfer from [place]. Abx initiated in our ER given hx of fever, leukopenia, elevated HR. Patient CXR no obvious findings. Patient troponin (-) x2. DIgoxin levels WNL. Patient BNP ~850. Patient Has no peripheral edema. Patient on telemetry. Hx of atrial fibrillation. No CP. SOB improving. Complaining of generalized weakness no focal findings. Patient Cr and BUN elevated, concern for dehydration. Patient placed on 100ml/hr and will be admitted for further monitoring and work up. Patient has a VQ pending at admission which accepting admitting provider is aware of. Dr. Schneider is agreeable to care plan and admission. (Marycarmen Wayne) Patient reexamined and reevaluated by myself, Dr. Schneider. I do agree with PA findings. This includes diagnostic intoxication and treatment plan. Case was discussed in detail with Dr. Oliveira, who will admit covering for Dr. Samano. Patient was updated. (Jayson Schneider) - Lab Data Lab Results 07/26/20 07/26/20 07/26/20 Range/Units 15:00 15:00 15:00 Plasma Lactic Acid Esau 1.2 (0.7-2.0) mmol/L Troponin I 0.017 (0.000-0.034) ng/mL Urine Color Yellow Urine Appearance Clear (Clear) Urine pH 5.5 (5.0-8.0) Ur Specific [place] 1.016 (1.001-1.035) Urine Protein Trace H (Negative) Urine Glucose (UA) Negative (Negative) Urine Ketones Negative (Negative) Urine Blood Negative (Negative) Urine Nitrite Negative (Negative) Urine Bilirubin Negative (Negative) Urine Urobilinogen <2.0 (<2.0) mg/dL Ur Leukocyte Esterase Negative (Negative) Disposition Is patient prescribed a controlled substance at d/c from ED?: No Time of Disposition: 15:37 Decision to Admit Reason: Admit from EC Decision Date: 07/26/20 Decision Time: 15:37 <Marycarmen Wayne - Last Filed: 07/26/20 16:54> <Jayson Schneider - Last Filed: 07/26/20 18:12> Clinical Impression: SOB (shortness of breath), Nausea, Tachycardia, Lactic acidosis, Leukopenia, Fever, Cough, History of COPD, Generalized weakness, Gall bladder polyp, Sepsis Disposition: ADMITTED IP TO THIS HOSP Condition: Stable
[2020-07-26 15:28] LABS: Appearance,Urine Clear (Clear); Bilirubin,Urine Negative (Negative); Blood,Urine Negative (Negative); Color,Urine Yellow; Glucose,Urine (UA) Negative (Negative); Ketones,Urine Negative (Negative); Leukocyte Esterase,Urine Negative (Negative); Nitrite,Urine Negative (Negative); PH, Urine 5.5 (5.0-8.0); Protein,Urine Trace (Negative); Specific Gravity,Urine 1.016 (1.001-1.035); Urobilinogen,Urine <2.0 mg/dL (<2.0)
[2020-07-26] MEDS: SODIUM CHLORIDE 0.9% 1,000 ML IV SCH (15:30)
--- NOTE | 2020-07-26 16:12 | XR ---
EXAMINATION TYPE: XR chest 2V DATE OF EXAM: 07/26/2020 COMPARISON: 06/05/2020 TECHNIQUE: PA and lateral views submitted. HISTORY: Shortness of breath FINDINGS: Heart is prominent. Subsegmental changes at the left lung base. Hyperinflation suggests COPD. No pneu mothorax. Atherosclerotic change aorta. No overt failure. Vague density right upper lobe. Degenerativ e change of the spine with scoliosis noted. IMPRESSION: 1. COPD with basilar atelectasis favored over pneumonia. 2. Vague density right upper lobe may represent superimposed structures. Short-term follow-up CT of t he chest could be obtained for confirmation.
--- NOTE | 2020-07-26 17:54 | NM ---
EXAMINATION TYPE: NM pul vent and perfuse DATE OF EXAM: 07/26/2020 COMPARISON: Chest x-ray same date, CT chest 06/06/2020 HISTORY: Shortness of breath, tachycardia TECHNIQUE: Utilizing inhalation of 39.6 mCi Tc 99m DTPA aerosol and intravenous injection of 5.2 mCi of Tc 99m MAA, ventilation and perfusion images are acquired post injection in multiple projections. FINDINGS: Left lung shows decreased uptake on both ventilation and perfusion imaging however perfusion is somew hat improved as compared to ventilation. Patchy uptake with central clumping on ventilation images is likely due to underlying COPD. No evident sizable ventilation/perfusion mismatches however. IMPRESSION: Low probability for pulmonary embolus.
[2020-07-27] MEDS: APIXABAN 2.5 MG TABLET PO SCH ×3 (01:29→23:35)
[2020-07-27] MEDS: SODIUM CHLORIDE 0.9% 1,000 ML IV SCH ×3 (01:29→22:50)
[2020-07-27 05:45] LABS: Albumin 3.4 g/dL (3.5-5.0); Calcium 8.8 mg/dL (8.4-10.2); Potassium 4.7 mmol/L (3.5-5.1); Total Bilirubin 0.9 mg/dL (0.2-1.3)
[2020-07-27 05:50] LABS: Basophils % (A) 1 %; Eosinophils % (A) 0 %; HCT 42.6 % (39.0-53.0); Lymphocytes # (A) 0.7 k/uL (1.0-4.8); Lymphocytes % (A) 23 %; MCH 29.3 pg (25.0-35.0); MCHC 32.2 g/dL (31.0-37.0); MCV 90.9 fL (80.0-100.0); Mean Platelet Volume 6.9; Monocytes # (A) 1.7 k/uL (0-1.0); Monocytes % (A) 56 %; Neutrophils % (A) 8 %; Platelet Count 192 k/uL (150-450); RBC 4.69 m/uL (4.30-5.90); WBC 3.1 k/uL (3.8-10.6)
[2020-07-27 05:51] LABS: HGB 13.7 gm/dL (13.0-17.5)
[2020-07-27 06:46] LABS: Nucleated Red Blood Cells 0 /100 WBC (0-0)
[2020-07-27 08:26] LABS: Band Neutrophils % 4 %; Lymphocytes # (M) 1.46 k/uL (1.0-4.8); Metamyelocytes # (M) 0.03 k/uL (0); Metamyelocytes % 1 %; Monocytes # (M) 1.18 k/uL (0-1.0); Myelocytes # (M) 0.03 k/uL (0); Myelocytes % 1 %; Neutrophils % (M) 10 %; Total Cells Counted 200
[2020-07-27 08:27] LABS: Poikilocytosis (M) Present
[2020-07-27] MEDS ORDERED: predniSONE 20 MG TAB PO SCH (09:00)
[2020-07-27] MEDS: AZITHROMYCIN 500 MG TAB PO SCH (10:29)
[2020-07-27] MEDS: CLOPIDOGREL 75 MG TAB PO SCH (10:29)
[2020-07-27 11:03] LABS: C Reactive Protein 78.2 mg/L (<10.0); Digoxin 0.5 ng/mL
--- NOTE | 2020-07-27 12:05 | P.HPIM ---
History of Present Illness This is a pleasant 79 years old male with past medical history of coronary artery disease, hypertension, hyperlipidemia, COPD and follow-up with Dr. Patrick. Patient recently had 3 vessel coronary artery disease per cardiac cath with Dr. Monson however patient refused for surgery. He was in the hospital 06/05-06/09 for dyspnea which was multifactorial secondary to his coronary artery disease, mild COPD and chronic atrial fibrillation. Possible COPD and generalized weakness however when asked the patient he said his breathing is at baseline with no difficulty breathing, he has cough on and off at times but not bothering him currently and no chest pain. He says he came to the hospital because he feels generally weak for 3-4 days. Also his been having diarrhea about a week ago which is a stopped and his last bowel movement was 2 days ago which was normal. He denies chest pain or abdominal pain or nausea vomiting. No fever. As per documentation from ED his creatinine level was elevated 2.1 at [facility]. And his blood pressure was on the low side. Currently his creatinine is 1.3 which is close to his baseline. Blood pressure 108/56. Is saturating 95% on 3 L oxygen via nasal cannula. His PCP is Dr. Samano and his thickener operator is Dr. Austin. He is not on home oxygen or steroids On admission vitals are stable. WBC is 3.1K, no neutrophils at 0.4. Creatinine is 1.3 which is close to baseline of 1.2-1.5. Rest of BMP, liver enzymes and UA were unremarkable. Troponin is negative was then 0.017.He has negative d-dimer 0.31 Chest x-ray: COPD with basilar atelectasis rather than pneumonia vague right u pper lobe density" short-term CT of the chest follow-up VQ scan is low probability for PE In the emergency room and was started on normal saline at 100 mm per hour, prednisone 40 mg, ceftriaxone and Zithromax. Review of Systems CONSTITUTIONAL: No fever, no malaise, no fatigue. HEENT: No recent visual problems or hearing problems. Denied any sore throat. CARDIOVASCULAR: No orthopnea, PND, no palpitations, no syncope. PULMONARY: No shortness of breath, no cough, no hemoptysis. GASTROINTESTINAL: No diarrhea, no nausea, no vomiting, no abdominal pain. Normoactive bowel sounds. NEUROLOGICAL: No headaches, no weakness, no numbness. HEMATOLOGICAL: Denies any bleeding or petechiae. GENITOURINARY: Denies any burning micturition, frequency, or urgency. MUSCULOSKELETAL/RHEUMATOLOGICAL: Denies any joint pain, swelling, or any muscle pain. ENDOCRINE: Denies any polyuria or polydipsia. Past Medical History Past Medical History: Atrial Flutter, Coronary Artery Disease (CAD), Heart Failure, COPD, GERD/Reflux, Hearing Disorder / Deafness, Hyperlipidemia, Hypertension, Osteoarthritis (OA), Renal Disease, Vascular Disorder Additional Past Medical History / Comment(s): hx. gout, hx. colon polyps, circulation problems in legs, slight decreased kidney function, shingles History of Any Multi-Drug Resistant Organisms: None Reported Past Surgical History: Cholecystectomy, Heart Catheterization, Heart Catheterization With Stent Additional Past Surgical History / Comment(s): right bone graft to collar bone Past Anesthesia/Blood Transfusion Reactions: No Reported Reaction Date of Last Stent Placement:: 05/2020 Past Psychological History: No Psychological Hx Reported Smoking Status: Former smoker Past Alcohol Use History: None Reported Additional Past Alcohol Use History / Comment(s): quit smoking 2014, smoked 1ppd- 2PPD STARTED SMOKING AT AGE 14 Past Drug Use History: None Reported - Past Family History Mother Family Medical History: No Reported History Medications and Allergies Home Medications Medication Instructions Recorded Confirmed Type Atorvastatin [Lipitor] 20 mg PO DAILY@129910/17/18 07/26/20 History Budesonide/Formoterol Fumarate 2 puff INHALATION RT-BID@0100,129910/17/18 07/26/20 History [Symbicort 160-4.5 Mcg Inhaler] Digoxin [Lanoxin] 125 mcg PO DAILY@129910/17/18 07/26/20 History Metoprolol Succinate [Toprol XL] 50 mg PO DAILY@129910/17/18 07/26/20 History cilostazoL [Pletal] 50 mg PO DAILY@129910/17/18 07/26/20 History Fexofenadine HCl [Hanh Allergy] 180 mg PO DAILY PRN 05/02/20 07/26/20 History Vitamin B Complex 1 cap PO DAILY@1300 05/02/20 07/26/20 History Apixaban [Eliquis] 2.5 mg PO BID@0100,1300 06/05/20 07/26/20 History Aspirin 81 mg PO DAILY@1300 06/05/20 07/26/20 History Furosemide [Lasix] 20 mg PO DAILY@1300 06/05/20 07/26/20 History Clopidogrel [Plavix] 75 mg PO DAILY #30 tab 06/09/20 07/26/20 Rx Spironolactone [Aldactone] 25 mg PO DAILY #30 tab 06/09/20 07/26/20 Rx lisinopriL [Zestril] 2.5 mg PO DAILY #30 tab 06/09/20 07/26/20 Rx Naproxen Sodium [Aleve] 220 mg PO DAILY PRN 07/26/20 07/26/20 History Vitamin D (Unknown Strength) 1 tab PO DAILY 07/26/20 07/26/20 History Allergies Allergy/AdvReac Type Severity Reaction Status Date / Time Iodinated Contrast Media AdvReac Diarrhea, Verified 07/26/20 18:25 [Iodinated Contrast- Oral RASH and IV Dye] Physical Exam Vitals: Vital Signs Temp Pulse Pulse Resp BP BP Pulse Ox 07/27/20 08:00 98.7 F 107 H 20 106/64 94 L 07/27/20 04:00 97 F L 70 20 99/63 96 07/27/20 00:00 96.9 F L 72 20 98/56 95 07/26/20 20:00 66 18 07/26/20 19:03 98.8 F 07/26/20 18:16 96.8 F L 66 18 104/57 97 07/26/20 17:59 78 16 107/67 97 07/26/20 16:00 16 103/72 95 07/26/20 15:38 69 16 103/72 96 07/26/20 15:30 16 110/74 95 07/26/20 14:39 108/58 07/26/20 14:30 18 07/26/20 14:27 98.4 F 104 H 18 114/56 97 Intake and Output 07/26/20 07/27/20 07/27/20 22:59 06:59 14:59 Intake Total 820 Output Total 200 Balance 620 Intake: Intake, IV Titration 700 Amount Sodium Chloride 0.9% 1, 700 000 ml @ 100 mls/hr IV . Q10H [facility] Rx#:[id number] Oral 120 Output: Urine 200 Other: Voiding Method Urinal Urinal Urinal Weight 83.915 kg 90.5 kg GENERAL: The patient is alert and oriented x3, not in any acute distress. Well developed, well nourished. HEENT: Pupils are round and equally reacting to light. EOMI. No scleral icterus. No conjunctival pallor. Normocephalic, atraumatic. No pharyngeal erythema. No thyromegaly. CARDIOVASCULAR: S1 and S2 present. No murmurs, rubs, or gallops. PULMONARY: Chest is clear to auscultation, no wheezing or crackles. ABDOMEN: Soft, nontender, nondistended, normoactive bowel sounds. No palpable organomegaly. MUSCULOSKELETAL: No joint swelling or deformity. EXTREMITIES: No cyanosis, clubbing, or pedal edema. NEUROLOGICAL: Gross neurological examination did not reveal any focal deficits. SKIN: No rashes. No petechiae Results CBC & Chem 7: 07/27/20 05:21 07/27/20 05:21 Labs: Abnormal Lab Results - Last 24 Hours (Table) 07/26/20 07/27/20 07/27/20 Range/Units 15:00 05:21 05:21 WBC 3.1 L (3.8-10.6) k/uL Neutrophils # (Manual) 0.40 L* (1.3-7.7) k/uL Lymphocytes # 0.7 L (1.0-4.8) k/uL Monocytes # 1.7 H (0-1.0) k/uL Monocytes # (Manual) 1.18 H (0-1.0) k/uL Metamyelocytes # (Man) 0.03 H (0) k/uL Myelocytes # (Manual) 0.03 H (0) k/uL Sodium 136 L (137-145) mmol/L BUN 34 H (9-20) mg/dL Creatinine 1.37 H (0.66-1.25) mg/dL Glucose 126 H (74-99) mg/dL Total Protein 6.0 L (6.3-8.2) g/dL Albumin 3.4 L (3.5-5.0) g/dL Urine Protein Trace H (Negative) Thrombosis Risk Factor Assmnt - Choose All That Apply Any of the Below Risk Factors Present?: Yes Each Factor Represents 1 point: Abnormal pulmonary function (COPD) Other Risk Factors: Yes Each Risk Factor Represents 3 Points: Age 75 years or older Other congenital or acquired thrombophilia - If yes, enter type in comment: No Thrombosis Risk Factor Assessment Total Risk Factor Score: 4 Thrombosis Risk Factor Assessment Level: Moderate Risk Assessment and Plan Assessment: -Generalized weakness, with recent history of diarrhea for possible gastroenteritis. Possibly purulent infection in view of his neutropenia -Vague right upper lobe density, pneumonia felt less likely -Chronic mild dyspnea, mostly related to Coronary artery disease, recent cardiac cath showing total occlusion of the RCA with severe disease of LAD and circumflex, patient refused heart surgery before. Also secondary to mild COPD and chronic atrial fibrillation. -Neutropenia, possibly secondary to viral infection. Follow-up level -possible acute kidney injury, improved -Hypertension -Hyperlipidemia -Recently diagnosed with atrial fibrillation and started on anticoagulation -Peripheral artery disease with bilateral occluded SFA and bilateral popliteal arteries -COPD, not in acute exacerbation Plan: This is a pleasant 79 years old male who presents with acute dyspnea. Continue with breathing treatment. Pulmonary and cardiology consult.Check proBNP. Check digoxin level . I will stop his prednisone because worsens his weakness, unless its restarted by pulmonary team. We will lower his normal saline to 50 mL per hour. Physical therapy evaluation . We will check TSH, B12 and folate Labs and medication were reviewed.. Continue same treatment. Continue with symptomatic treatment. Resume home medication. Monitor lytes and vitals. DVT and GI prophylaxis. Further recommendations depends on the clinical course of the patient DVT prophylaxis: Eliquis GI Prophylaxis: Pepcid Prognosis is guarded
[2020-07-27] MEDS: ATORVASTATIN 20 MG TAB PO SCH (12:15)
[2020-07-27] MEDS: DIGOXIN 125 MCG TAB PO SCH (12:15)
[2020-07-27] MEDS: ASPIRIN 81 MG PO SCH (12:15)
[2020-07-27] MEDS: IPRATROPIUM-ALBUTEROL 3 ML NEB INHALATION PRN (12:16)
[2020-07-27] MEDS ORDERED: METOPROLOL SUCCINATE (ER) 50 MG TAB.ER.24H PO SCH (13:00)
--- NOTE | 2020-07-27 14:08 | P.CNPUL ---
History of Present Illness Consult date: 07/27/20 Requesting physician: Avtar E Szuette Reason for consult: dyspnea, cough Chief complaint: Dyspnea, cough, weakness History of present illness: 79-year-old white male patient of Dr. Samano with known history of COPD with an FEV1 of 72% of predicted, CAD with recent history of stenting of the LAD, chronic atrial fibrillation, on Eliquis, ex-smoker, previous history of VATS for pleural effusion, hypertension, chronic kidney disease, who was transferred from [facility] where he presented to the emergency department with complaints of weakness for last 34 days, increased shortness of breath, cough, patient was a fever at the [facility], and hypotensive. Patient was complaining of some nausea, off and on diarrhea and poor oral intake. Patient denied fever at home, no hemoptysis, no abdominal pain, no headaches. Lab work showed neutropenia with a white blood cell count of 2.59, hemoglobin of 14.7, electrolytes were unremarkable, patient had elevated BUN and creatinine of 2.11, which is nearly doubled his baseline. His chest x-ray showed no infiltrates or evidence of acute heart failure. Liver enzymes were within normal limits, lactic acid was 2.6, and patient was fluid resuscitated, and currently his lactic acid is down to 1.2 at this hospital. Troponin was less than 0.017. Patient denied any leg swelling, no pleuritic chest pain, no headaches, visual changes, neck pain. No altered mentation, he had Covid 19 PCR done at [facility], and we don't have those results yet. He was transferred to [facility] where he has had most of his care including his cardiac catheterizations and interventions. Chest x-ray was completed at this hospital showing COPD with basilar atelectasis, and vague density in the right upper lobe. Follow-up blood work at this hospital showed white blood cell count of 3.1, hemoglobin of 13.7, 4% bands, differential showed neutrophils of 0.4, lymphocytes 0.7, d-dimer was negative at 0.31, nevertheless patient went on to have a VQ scan which showed low probability for pulmonary embolism. Electrolytes are all within normal limits, renal profile shows improvement from labs completed at [facility] and BUN is down to 34 and creatinine is down to 1.37. LFTs are within normal limits. Urinalysis showed trace protein but negative for signs of infection. Patient is afebrile. Was started on empiric antibiotics in the form of azithromycin and Rocephin, breathing treatments, and gentle IV hydration continues currently at 50 ML per hour. Review of Systems All systems: negative Constitutional: Reports fatigue, Reports weakness, Denies chills, Denies fever Eyes: denies blurred vision, denies pain Ears, nose, mouth and throat: Denies headache, Denies sore throat Cardiovascular: Denies chest pain, Denies shortness of breath Respiratory: Reports cough, Reports dyspnea Gastrointestinal: Reports diarrhea, Reports loss of appetite, Reports nausea, Denies abdominal pain, Denies vomiting Musculoskeletal: Denies myalgias Integumentary: Denies pruritus, Denies rash Neurological: Denies numbness, Denies weakness Psychiatric: Denies anxiety, Denies depression Endocrine: Denies fatigue, Denies weight change Past Medical History Past Medical History: Atrial Flutter, Coronary Artery Disease (CAD), Heart Failure, COPD, GERD/Reflux, Hearing Disorder / Deafness, Hyperlipidemia, Hypertension, Osteoarthritis (OA), Renal Disease, Vascular Disorder Additional Past Medical History / Comment(s): hx. gout, hx. colon polyps, ci rculation problems in legs, slight decreased kidney function, shingles History of Any Multi-Drug Resistant Organisms: None Reported Past Surgical History: Cholecystectomy, Heart Catheterization, Heart Catheterization With Stent Additional Past Surgical History / Comment(s): right bone graft to collar bone Past Anesthesia/Blood Transfusion Reactions: No Reported Reaction Date of Last Stent Placement:: 05/2020 Past Psychological History: No Psychological Hx Reported Smoking Status: Former smoker Past Alcohol Use History: None Reported Additional Past Alcohol Use History / Comment(s): quit smoking 2014, smoked 1ppd- 2PPD STARTED SMOKING AT AGE 14 Past Drug Use History: None Reported - Past Family History Mother Family Medical History: No Reported History Medications and Allergies Home Medications Medication Instructions Recorded Confirmed Type Atorvastatin [Lipitor] 20 mg PO DAILY@1300 10/17/18 07/26/20 History Budesonide/Formoterol Fumarate 2 puff INHALATION RT-BID@0100,1300 10/17/18 07/26/20 History [Symbicort 160-4.5 Mcg Inhaler] Digoxin [Lanoxin] 125 mcg PO DAILY@1300 10/17/18 07/26/20 History Metoprolol Succinate [Toprol XL] 50 mg PO DAILY@1300 10/17/18 07/26/20 History cilostazoL [Pletal] 50 mg PO DAILY@1300 10/17/18 07/26/20 History Fexofenadine HCl [Hanh Allergy] 180 mg PO DAILY PRN 05/02/20 07/26/20 History Vitamin B Complex 1 cap PO DAILY@1300 05/02/20 07/26/20 History Apixaban [Eliquis] 2.5 mg PO BID@0100,1300 06/05/20 07/26/20 History Aspirin 81 mg PO DAILY@1300 06/05/20 07/26/20 History Furosemide [Lasix] 20 mg PO DAILY@1300 06/05/20 07/26/20 History Clopidogrel [Plavix] 75 mg PO DAILY #30 tab 06/09/20 07/26/20 Rx Spironolactone [Aldactone] 25 mg PO DAILY #30 tab 06/09/20 07/26/20 Rx lisinopriL [Zestril] 2.5 mg PO DAILY #30 tab 06/09/20 07/26/20 Rx Naproxen Sodium [Aleve] 220 mg PO DAILY PRN 07/26/20 07/26/20 History Vitamin D (Unknown Strength) 1 tab PO DAILY 07/26/20 07/26/20 History Allergies Allergy/AdvReac Type Severity Reaction Status Date / Time Iodinated Contrast Media AdvReac Diarrhea, Verified 07/26/20 18:25 [Iodinated Contrast- Oral RASH and IV Dye] Physical Exam Vitals: Vital Signs Temp Pulse Pulse Resp BP BP Pulse Ox 07/27/20 12:28 76 07/27/20 12:16 76 07/27/20 11:11 97.9 F 74 18 108/56 95 07/27/20 08:00 98.7 F 107 H 20 106/64 94 L 07/27/20 04:00 97 F L 70 20 99/63 96 07/27/20 00:00 96.9 F L 72 20 98/56 95 07/26/20 20:00 66 18 07/26/20 19:03 98.8 F 07/26/20 18:16 96.8 F L 66 18 104/57 97 07/26/20 17:59 78 16 107/67 97 07/26/20 16:00 16 103/72 95 07/26/20 15:38 69 16 103/72 96 07/26/20 15:30 16 110/74 95 07/26/20 14:39 108/58 07/26/20 14:30 18 07/26/20 14:27 98.4 F 104 H 18 114/56 97 Intake and Output 07/26/20 07/27/20 07/27/20 22:59 06:59 14:59 Intake Total 820 850 Output Total 200 Balance 620 850 Intake: IV 850 Sodium Chloride 0.9% 1, 800 000 ml @ 50 mls/hr IV . Q20H [facility] Rx#:[id number] cefTRIAXone 1 gm In 50 Sodium Chloride 0.9% 50 ml @ 100 mls/hr IVPB Q24HR [facility] Rx#:[id number] Intake, IV Titration 700 Amount Sodium Chloride 0.9% 1, 700 000 ml @ 50 mls/hr IV . Q20H [facility] Rx#:[id number] Oral 120 Output: Urine 200 Other: Voiding Method Urinal Urinal Urinal # Voids 1 Weight 83.915 kg 90.5 kg GENERAL EXAM: Alert, very pleasant, 79-year-old white male currently on 3 L of oxygen pulse ox of 95% comfortable in no apparent distress. HEAD: Normocephalic/atraumatic. EYES: Normal reaction of pupils, equal size. Conjunctiva pink, sclera white. NOSE: Clear with pink turbinates. THROAT: No erythema or exudates. NECK: No masses, no JVD, no thyroid enlargement, no adenopathy. CHEST: No chest wall deformity. Symmetrical expansion. LUNGS: Equal air entry with no crackles, wheeze, rhonchi or dullness. CVS: Irregular rate and rhythm, normal S1 and S2, no gallops, no murmurs, no rubs ABDOMEN: Soft, nontender. No hepatosplenomegaly, normal bowel sounds, no guarding or rigidity. EXTREMITIES: No clubbing, no edema, no cyanosis, 2+ pulses and upper and lower extremities. MUSCULOSKELETAL: Muscle strength and tone normal. SPINE: No scoliosis or deformity SKIN: No rashes CENTRAL NERVOUS SYSTEM: Alert and oriented -3. No focal deficits, tone is normal in all 4 extremities. PSYCHIATRIC: Alert and oriented -3. Appropriate affect. Intact judgment and insight. Results - Laboratory Findings CBC and BMP: 07/27/20 05:21 07/27/20 05:21 PT/INR, D-dimer D-Dimer 0.31 mg/L FEU (<0.60) 07/27/20 10:36 Abnormal lab findings: Abnormal Labs 07/26/20 07/27/20 07/27/20 15:00 05:21 05:21 WBC 3.1 L Neutrophils # (Manual) 0.40 L* Lymphocytes # 0.7 L Monocytes # 1.7 H Monocytes # (Manual) 1.18 H Metamyelocytes # (Man) 0.03 H Myelocytes # (Manual) 0.03 H Sodium 136 L BUN 34 H Creatinine 1.37 H Glucose 126 H C-Reactive Protein Total Protein 6.0 L Albumin 3.4 L Urine Protein Trace H 07/27/20 10:36 WBC Neutrophils # (Manual) Lymphocytes # Monocytes # Monocytes # (Manual) Metamyelocytes # (Man) Myelocytes # (Manual) Sodium BUN Creatinine Glucose C-Reactive Protein 78.2 H Total Protein Albumin Urine Protein - Diagnostic Findings Chest x-ray: report reviewed, image reviewed Additional studies: EKG reviewed, VQ scan reviewed Assessment and Plan Plan: Assessment: #1. Acute hypoxic respiratory failure possibly related to sepsis, with an undetermined source, chest x-ray did not show any acute pulmonary process on initial chest x-ray done at [facility], and follow-up chest x-ray at [facility] showed COPD with basilar atelectasis and a right upper lobe vague density, which was previously seen on the CT chest on 06/06/2020 and could be a small area of pneumonitis #2. Weakness, nausea, episodes of diarrhea, and episode of fever, COVID: 19 testing is pending at this time #3. Mild lactic acidosis, hypotension, tachycardia recovered with IV hydration #4. Acute kidney injury related to dehydration, and ATN, improved with IV hydration #5. Chronic kidney disease, stage III at baseline #6. Chronic A. fib on Eliquis #7. Coronary artery disease with previous PCI and stenting most recently with stenting of the LAD in June 2020 #8. Mild COPD, not oxygen dependent at baseline, with FEV1 of 72% of predicted #9. Tension #10. Hyperlipidemia #11. Former smoker, in remission since 2014, patient Sveta [id number] smoking history Plan: Chest x-ray has been reviewed with Dr. Scott, the right upper lobe vague density which was previously seen on the previous CT chest in June 2020 appears to be a small area of pneumonitis. Covid 19 testing is pending. Continue with current antibiotics, blood cultures have been sent, inflammatory markers have been sent, CRP has been noted. Obtain pro-calcitonin. Blood pressure, and kidney function improved with IV hydration, lactic acid is not within normal limits. We'll await results of the blood cultures, and Covid 19 testing. Maintain contact precautions. We'll continue to follow I performed a history & physical examination of the patient and discussed their management with my nurse practitioner, Yahaira Lopez. I reviewed the nurse practitioner's note and agree with the documented findings and plan of care. Lung sounds are positive for diminished breath sounds. The findings and the impression was discussed with the patient. I attest to the documentation by the nurse practitioner. Time with Patient: Greater than 30
--- NOTE | 2020-07-27 14:37 | P.CRDCN ---
History of Present Illness Consult date: 07/27/20 Chief complaint: Weakness and lethargy History of present illness: This is an 79-year-old gentleman who follows regularly with Dr. Austin in the office. He has a past medical history significant for paroxysmal atrial fibrillation, on long-term anticoagulation in the form of Eliquis, coronary artery disease with recent PCI, stenting of the LAD with Impella assist by Dr. Austin, peripheral vascular disease, hypertension, hyperlipidemia, COPD, nicotine dependence. Patient also underwent an aortogram recently which revealed occluded bilateral SFAs and occluded bilateral popliteals. Patient presented to [facility] for evaluation of generalized weakness. According to the patient, he's been getting progressively more weak at home, even had an episode where he was walking and had to slump forward. He states he did not pass out at that time. He denies having any chest discomfort and overall his breathing has been stable. Patient was having diarrhea stools for 24-48 hours prior to going to the hospital as well. While at [facility], it was noted that the patient had some hypotension and medication adjustments were made. He was transferred here to [facility] because this is where his physicians are. He underwent an ultrasound of the gallbladder while he was there that showed multiple gallbladder polyps less than 5 mm in size. No shadowing calculi or surrounding fluid. Normal CBD. His blood pressure while there was 117/90, 102/68. Laboratory data performed at [place] [facility] was 834, white blood cell count 2.5, hemoglobin 14.7, hematocrit 45.6, platelet count 212. Sodium 135, potassium 5.1, chloride 98, BUN 31, creatinine 2.1, dig level I.1, troponin 0.017 blood cultures were obtained I don't have results of those chest x-ray showed cardiac enlargement with no acute process. The patient had most recently seen Dr. Austin in the office in June of this year. He had been on Brilinta but because of some symptoms of shortness of breath this was discontinued and patient was started on Plavix. Patient is currently under isolation, awaiting: Results. Data was reviewed on arrival here. Chest x-ray shows COPD, vague density in the right upper lobe which may represent superi mposed structures. Short-term follow-up with CT recommended. VQ scan was performed which came back low probability for pulmonary embolism. Blood pressure 108/50 with a heart rate in the 70s 95% on 3 L of oxygen. White blood cell count 3.1, hemoglobin 13.7, platelet count 192. Sodium 136, potassium 34.7, BUN 34, creatinine 1.3. At present, the patient is on Eliquis 2-1/2 mg one tablet by mouth twice a day, Past Medical History Past Medical History: Atrial Flutter, Coronary Artery Disease (CAD), Heart Failure, COPD, GERD/Reflux, Hearing Disorder / Deafness, Hyperlipidemia, Hypertension, Osteoarthritis (OA), Renal Disease, Vascular Disorder Additional Past Medical History / Comment(s): hx. gout, hx. colon polyps, circulation problems in legs, slight decreased kidney function, shingles History of Any Multi-Drug Resistant Organisms: None Reported Past Surgical History: Cholecystectomy, Heart Catheterization, Heart Catheterization With Stent Additional Past Surgical History / Comment(s): right bone graft to collar bone Past Anesthesia/Blood Transfusion Reactions: No Reported Reaction Date of Last Stent Placement:: 05/2020 Past Psychological History: No Psychological Hx Reported Smoking Status: Former smoker Past Alcohol Use History: None Reported Additional Past Alcohol Use History / Comment(s): quit smoking 2014, smoked 1ppd- 2PPD STARTED SMOKING AT AGE 14 Past Drug Use History: None Reported - Past Family History Mother Family Medical History: No Reported History Medications and Allergies Home Medications Medication Instructions Recorded Confirmed Type Atorvastatin [Lipitor] 20 mg PO DAILY@1300 10/17/18 07/26/20 History Budesonide/Formoterol Fumarate 2 puff INHALATION RT-BID@0100,1300 10/17/18 07/26/20 History [Symbicort 160-4.5 Mcg Inhaler] Digoxin [Lanoxin] 125 mcg PO DAILY@1300 10/17/18 07/26/20 History Metoprolol Succinate [Toprol XL] 50 mg PO DAILY@1300 10/17/18 07/26/20 History cilostazoL [Pletal] 50 mg PO DAILY@1300 10/17/18 07/26/20 History Fexofenadine HCl [Hanh Allergy] 180 mg PO DAILY PRN 05/02/20 07/26/20 History Vitamin B Complex 1 cap PO DAILY@1300 05/02/20 07/26/20 History Apixaban [Eliquis] 2.5 mg PO BID@0100,1300 06/05/20 07/26/20 History Aspirin 81 mg PO DAILY@1300 06/05/20 07/26/20 History Furosemide [Lasix] 20 mg PO DAILY@1300 06/05/20 07/26/20 History Clopidogrel [Plavix] 75 mg PO DAILY #30 tab 06/09/20 07/26/20 Rx Spironolactone [Aldactone] 25 mg PO DAILY #30 tab 06/09/20 07/26/20 Rx lisinopriL [Zestril] 2.5 mg PO DAILY #30 tab 06/09/20 07/26/20 Rx Naproxen Sodium [Aleve] 220 mg PO DAILY PRN 07/26/20 07/26/20 History Vitamin D (Unknown Strength) 1 tab PO DAILY 07/26/20 07/26/20 History Allergies Allergy/AdvReac Type Severity Reaction Status Date / Time Iodinated Contrast Media AdvReac Diarrhea, Verified 07/26/20 18:25 [Iodinated Contrast- Oral RASH and IV Dye] Physical Exam Vitals: Vital Signs Temp Pulse Pulse Resp BP BP Pulse Ox 07/27/20 12:28 76 07/27/20 12:16 76 07/27/20 11:11 97.9 F 74 18 108/56 95 07/27/20 08:00 98.7 F 107 H 20 106/64 94 L 07/27/20 04:00 97 F L 70 20 99/63 96 07/27/20 00:00 96.9 F L 72 20 98/56 95 07/26/20 20:00 66 18 07/26/20 19:03 98.8 F 07/26/20 18:16 96.8 F L 66 18 104/57 97 07/26/20 17:59 78 16 107/67 97 07/26/20 16:00 16 103/72 95 07/26/20 15:38 69 16 103/72 96 07/26/20 15:30 16 110/74 95 07/26/20 14:39 108/58 07/26/20 14:30 18 07/26/20 14:27 98.4 F 104 H 18 114/56 97 Intake and Output 07/26/20 07/27/20 07/27/20 22:59 06:59 14:59 Intake Total 820 850 Output Total 200 Balance 620 850 Intake: IV 850 Sodium Chloride 0.9% 1, 800 000 ml @ 50 mls/hr IV . Q20H [facility] Rx#:[id number] cefTRIAXone 1 gm In 50 Sodium Chloride 0.9% 50 ml @ 100 mls/hr IVPB Q24HR [facility] Rx#:[id number] Intake, IV Titration 700 Amount Sodium Chloride 0.9% 1, 700 000 ml @ 50 mls/hr IV . Q20H [facility] Rx#:[id number] Oral 120 Output: Urine 200 Other: Voiding Method Urinal Urinal Urinal # Voids 1 Weight 83.915 kg 90.5 kg GENERAL EXAM: Alert, very pleasant, 79-year-old white male currently on 3 L of oxygen pulse ox of 95% comfortable in no apparent distress. HEAD: Normocephalic/atraumatic. EYES: Normal reaction of pupils, equal size. Conjunctiva pink, sclera white. NOSE: Clear with pink turbinates. THROAT: No erythema or exudates. NECK: No masses, no JVD, no thyroid enlargement, no adenopathy. CHEST: No chest wall deformity. Symmetrical expansion. LUNGS: Lungs reveal diminished air entry to the bases bilaterally . CVS: Irregular rate and rhythm, systolic murmur is heard ABDOMEN: Soft, nontender. No hepatosplenomegaly, normal bowel sounds, no guarding or rigidity. EXTREMITIES: No clubbing, no edema, no cyanosis, 2+ pulses and upper and lower extremities. MUSCULOSKELETAL: Muscle strength and tone normal. SPINE: No scoliosis or deformity SKIN: No rashes CENTRAL NERVOUS SYSTEM: Alert and oriented -3. No focal deficits, tone is normal in all 4 extremities. PSYCHIATRIC: Alert and oriented -3. Appropriate affect. Intact judgment and insight. Results 07/27/20 05:21 07/27/20 05:21 Cardiac Enzymes 07/26/20 07/27/20 Range/Units 15:00 05:21 AST 19 (17-59) U/L Troponin I 0.017 (0.000-0.034) ng/mL CBC 07/27/20 Range/Units 05:21 WBC 3.1 L (3.8-10.6) k/uL RBC 4.69 (4.30-5.90) m/uL Hgb 13.7 D (13.0-17.5) gm/dL Hct 42.6 (39.0-53.0) % Plt Count 192 (150-450) k/uL Comprehensive Metabolic Panel 07/27/20 Range/Units 05:21 Sodium 136 L (137-145) mmol/L Potassium 4.7 (3.5-5.1) mmol/L Chloride 107 (98-107) mmol/L Carbon Dioxide 23 (22-30) mmol/L BUN 34 H (9-20) mg/dL Creatinine 1.37 H (0.66-1.25) mg/dL Glucose 126 H (74-99) mg/dL Calcium 8.8 (8.4-10.2) mg/dL AST 19 (17-59) U/L ALT 31 (4-49) U/L Alkaline Phosphatase 46 (38-126) U/L Total Protein 6.0 L (6.3-8.2) g/dL Albumin 3.4 L (3.5-5.0) g/dL Current Medications Generic Name Dose Route Start Last Admin Trade Name Freq PRN Reason Stop Dose Admin Acetaminophen 650 mg 07/26/20 21:35 Acetaminophen Tab 325 Mg Tab PO Q4HR PRN Fever and/ or Pain Albuterol/Ipratropium 3 ml 07/26/20 16:26 07/27/20 12:16 Ipratropium-Albuterol 3 Ml Neb INHALATION 3 ml RT-Q4H PRN Administration Shortness Of Breath Or Wheezing Apixaban 2.5 mg 07/27/20 01:00 07/27/20 12:15 Apixaban 2.5 Mg Tablet PO 2.5 mg BID@ [facility] Administration Aspirin 81 mg 07/27/20 13:00 07/27/20 12:15 Aspirin 81 Mg PO 81 mg DAILY@1300 [facility] Administration Atorvastatin Calcium 20 mg 07/27/20 13:00 07/27/20 12:15 Atorvastatin 20 Mg Tab PO 20 mg DAILY@1300 [facility] Administration Azithromycin 500 mg 07/27/20 10:15 07/27/20 10:29 Azithromycin 500 Mg Tab PO 500 mg DAILY [facility] Administration Budesonide/Formoterol Fumarate 2 puff 07/27/20 13:00 Symbicort 160-4.5 Mcg Inhaler INHALATION RT-BID@ [facility] Clopidogrel Bisulfate 75 mg 07/27/20 11:15 07/27/20 10:29 Clopidogrel 75 Mg Tab PO 75 mg DAILY [facility] Administration Digoxin 125 mcg 07/27/20 13:00 07/27/20 12:15 Digoxin 125 Mcg Tab PO 125 mcg DAILY@1300 [facility] Administration Sodium Chloride 1,000 mls @ 50 mls/hr 07/26/20 15:30 07/27/20 10:29 Saline 0.9% IV 100 mls/hr .Q20H [facility] Administration Ceftriaxone Sodium 1 gm/ 50 mls @ 100 mls/hr 07/27/20 10:15 07/27/20 10:29 Sodium Chloride IVPB 100 mls/hr Q24HR [facility] Administration Metoprolol Succinate 50 mg 07/27/20 13:00 07/27/20 12:15 Metoprolol Succinate (Er) 50 Mg Tab.Er.24h PO 50 mg DAILY@1300 [facility] Administration Intake and Output 07/26/20 07/27/20 07/27/20 22:59 06:59 14:59 Intake Total 820 850 Output Total 200 Balance 620 850 Intake: IV 850 Sodium Chloride 0.9% 1, 800 000 ml @ 50 mls/hr IV . Q20H [facility] Rx#:[id number] cefTRIAXone 1 gm In 50 Sodium Chloride 0.9% 50 ml @ 100 mls/hr IVPB Q24HR [facility] Rx#:[id number] Intake, IV Titration 700 Amount Sodium Chloride 0.9% 1, 700 000 ml @ 50 mls/hr IV . Q20H [facility] Rx#:[id number] Oral 120 Output: Urine 200 Other: Voiding Method Urinal Urinal Urinal # Voids 1 Weight 83.915 kg 90.5 kg 07/27/20 05:21 07/27/20 05:21 EKG Interpretations (text) EKG showed atrial fibrillation with moderately rapid ventricular response Assessment and Plan Plan: Assessment and plan: #1. Acute hypoxic respiratory failure possibly related to sepsis, with an undetermined source, chest x-ray did not show any acute pulmonary process on initial chest x-ray done at [facility], and follow-up chest x-ray at [facility] showed COPD with basilar atelectasis and a right upper lobe vague density, which was previously seen on the CT chest on 06/06/2020 and could be a small area of pneumonitis #2. Weakness, nausea, episodes of diarrhea, and episode of fever, COVID: 19 testing is pending at this time #3. Mild lactic acidosis, hypotension, tachycardia recovered with IV hydration #4. Acute kidney injury related to dehydration, and ATN, improved with IV hydration #5. Chronic kidney disease, stage III at baseline #6. Chronic A. fib on Eliquis #7. Coronary artery disease with previous PCI and stenting most recently with stenting of the LAD in June 2020 #8. Mild COPD, not oxygen dependent at baseline, with FEV1 of 72% of predicted #9. Tension #10. Hyperlipidemia #11. Former smoker, in remission since 2014, patient Sveta [id number] smoking history Plan We will continue the Eliquis 2-1/2 mg one tablet by mouth twice a day, di scontinue the aspirin, continue Lipitor 20, obtain an echocardiogram with Doppler study. Patient's most recent echocardiogram with Doppler study is performed in the office in June, documented ejection fraction at that time was 35%. We will continue the metoprolol 50 mg daily, discontinue Lanoxin. If renal function improves, consider low-dose GUNNAR inhibitor. Patient is also currently undergoing Covid testing. Results are pending. Continue with current antibiotics. Further recommendations to follow. DNP note has been reviewed, I agree with a documented findings and plan of care. Patient was seen and examined.
[2020-07-27 17:10] LABS: Ferritin 318.4 ng/mL (22.0-322.0)
[2020-07-27] MEDS: SYMBICORT 160-4.5 MCG INHALER INHALATION SCH (21:11)
[2020-07-28 07:54] LABS: HCT 41.6 % (39.0-53.0); HGB 13.7 gm/dL (13.0-17.5); MCH 30.1 pg (25.0-35.0); MCHC 32.8 g/dL (31.0-37.0); MCV 91.7 fL (80.0-100.0); Mean Platelet Volume 7.1; Platelet Count 214 k/uL (150-450); RBC 4.54 m/uL (4.30-5.90); RDW 15.3 % (11.5-15.5); WBC 3.7 k/uL (3.8-10.6)
[2020-07-28 08:02] LABS: Calcium 8.7 mg/dL (8.4-10.2); Potassium 4.6 mmol/L (3.5-5.1)
[2020-07-28] MEDS: SYMBICORT 160-4.5 MCG INHALER INHALATION SCH ×3 (08:38→19:13)
[2020-07-28 08:47] LABS: Neutrophils % (M) 1 %
[2020-07-28 08:48] LABS: Lymphocytes # (M) 1.63 k/uL (1.0-4.8); Monocytes # (M) 2.04 k/uL (0-1.0); Myelocytes # (M) 0.04 k/uL (0); Myelocytes % 1 %; Nucleated Red Blood Cells 0 /100 WBC (0-0); Total Cells Counted 200
[2020-07-28 09:13] LABS: Neutrophils # (M) 0.04 k/uL (1.3-7.7)
--- NOTE | 2020-07-28 09:17 | XR ---
EXAMINATION TYPE: XR chest 2V DATE OF EXAM: 07/28/2020 COMPARISON: Chest x-ray [address] chest June 06, 2020. HISTORY: Shortness of breath and fever. TECHNIQUE: Frontal and lateral views of the chest are obtained. FINDINGS: Background chronic emphysematous and pulmonary fibrotic changes redemonstrated. There is no suspicious new focal air space opacity, pleural effusion, or pneumothorax seen. The cardiac silhoue tte size is stable and enlarged with atherosclerotic aortic knob. Old fracture deformity middle one t hird right clavicle redemonstrated. IMPRESSION: Chronic changes and cardiomegaly without new suspicious acute pulmonary process.
[2020-07-28] MEDS: CLOPIDOGREL 75 MG TAB PO SCH (09:26)
[2020-07-28] MEDS: AZITHROMYCIN 500 MG TAB PO SCH (09:26)
[2020-07-28] MEDS: SODIUM CHLORIDE 0.9% 1,000 ML IV SCH (09:28)
--- NOTE | 2020-07-28 11:19 | P.PN ---
Subjective This is a pleasant 79 years old male with past medical history of coronary artery disease, hypertension, hyperlipidemia, COPD and follow-up with Dr. Patrick. Patient recently had 3 vessel coronary artery disease per cardiac cath with Dr. Monson however patient refused for surgery. He was in the hospital 06/05-06/09 for dyspnea which was multifactorial secondary to his coronary artery disease, mild COPD and chronic atrial fibrillation. Possible COPD and generalized weakness however when asked the patient he said his breathing is at baseline with no difficulty breathing, he has cough on and off at times but not bothering him currently and no chest pain. He says he came to the hospital because he feels generally weak for 3-4 days. Also his been having diarrhea about a week ago which is a stopped and his last bowel movement was 2 days ago w hich was normal. He denies chest pain or abdominal pain or nausea vomiting. No fever. As per documentation from ED his creatinine level was elevated 2.1 at [facility]. And his blood pressure was on the low side. Currently his creatinine is 1.3 which is close to his baseline. Blood pressure 108/56. Is saturating 95% on 3 L oxygen via nasal cannula. His PCP is Dr. Samano and his building rigger is Dr. Austin. He is not on home oxygen or steroids On admission vitals are stable. WBC is 3.1K, no neutrophils at 0.4. Creatinine is 1.3 which is close to baseline of 1.2-1.5. Rest of BMP, liver enzymes and UA were unremarkable. Troponin is negative was then 0.017.He has negative d-dimer 0.31 Chest x-ray: COPD with basilar atelectasis rather than pneumonia vague right upper lobe density" short-term CT of the chest follow-up VQ scan is low probability for PE In the emergency room and was started on normal saline at 100 mm per hour, prednisone 40 mg, ceftriaxone and Zithromax. 07/28/2020 Patient still feels generally weak, he still dyspneic especially with exertion, with little cough. No chest pain. No diarrhea and no abdominal pain. He is tolerating diet well. Patient is afebrile and vitals are stable. Left showing WBC of 3.7K, however neutrophil count went down to 0.04. TSH is normal at 1.9, pro-BNP is slightly elevated at 2180. Pro-calcitonin is slightly elevated at 0.15. B12 is still pending. Digoxin level is at reference range of 0.5. Coronal Vitas is still pending. 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 Physical therapy evaluation is pending Review of Systems CONSTITUTIONAL: No fever, no malaise, no fatigue. HEENT: No recent visual problems or hearing problems. Denied any sore throat. CARDIOVASCULAR: No orthopnea, PND, no palpitations, no syncope. PULMONARY: No shortness of breath, no cough, no hemoptysis. GASTROINTESTINAL: No diarrhea, no nausea, no vomiting, no abdominal pain. Normoactive bowel sounds. NEUROLOGICAL: No headaches, no weakness, no numbness. HEMATOLOGICAL: Denies any bleeding or petechiae. GENITOURINARY: Denies any burning micturition, frequency, or urgency. MUSCULOSKELETAL/RHEUMATOLOGICAL: Denies any joint pain, swelling, or any muscle pain. ENDOCRINE: Denies any polyuria or polydipsia. Active Medications Generic Name Dose Route Start Last Admin Trade Name Freq PRN Reason Stop Dose Admin Acetaminophen 650 mg 07/26/20 21:35 Acetaminophen Tab 325 Mg Tab PO Q4HR PRN Fever and/ or Pain Albuterol/Ipratropium 3 ml 07/26/20 16:26 07/27/20 12:16 Ipratropium-Albuterol 3 Ml Neb INHALATION 3 ml RT-Q4H PRN Administration Shortness Of Breath Or Wheezing Apixaban 2.5 mg 07/27/20 01:00 07/27/20 23:35 Apixaban 2.5 Mg Tablet PO 2.5 mg BID@0100,1300 [facility] Administration Aspirin 81 mg 07/27/20 13:00 07/27/20 12:15 Aspirin 81 Mg PO 81 mg DAILY@1300 [facility] Administration Atorvastatin Calcium 20 mg 07/27/20 13:00 07/27/20 12:15 Atorvastatin 20 Mg Tab PO 20 mg DAILY@1300 [facility] Administration Azithromycin 500 mg 07/27/20 10:15 07/28/20 09:26 Azithromycin 500 Mg Tab PO 500 mg DAILY [facility] Administration Budesonide/Formoterol Fumarate 2 puff 07/27/20 13:00 07/28/20 08:38 Symbicort 160-4.5 Mcg Inhaler INHALATION 2 puff RT-BID@0100,1300 [facility] Administration Clopidogrel Bisulfate 75 mg 07/27/20 11:15 07/28/20 09:26 Clopidogrel 75 Mg Tab PO 75 mg DAILY [facility] Administration Digoxin 125 mcg 07/27/20 13:00 07/27/20 12:15 Digoxin 125 Mcg Tab PO 125 mcg DAILY@1300 [facility] Administration Sodium Chloride 1,000 mls @ 50 mls/hr 07/26/20 15:30 07/28/20 09:28 Saline 0.9% IV 50 mls/hr .Q20H [facility] Administration Ceftriaxone Sodium 1 gm/ 50 mls @ 100 mls/hr 07/27/20 10:15 07/28/20 09:26 Sodium Chloride IVPB 100 mls/hr Q24HR [facility] Administration Metoprolol Succinate 50 mg 07/27/20 13:00 07/27/20 12:15 Metoprolol Succinate (Er) 50 Mg Tab.Er.24h PO 50 mg DAILY@1300 [facility] Administration Objective - Vital Signs Vital signs: Vital Signs Temp 97.6 F 07/28/20 09:22 Pulse 71 07/28/20 09:22 Resp 16 07/28/20 09:22 BP 107/71 07/28/20 09:22 Pulse Ox 94 L 07/28/20 09:22 Intake & Output 07/27/20 07/28/20 07/28/20 18:59 06:59 18:59 Intake Total 1090 730 Output Total 325 350 Balance 1090 -325 380 Weight 87.2 kg Intake: IV 850 370 Invasive Line 1 10 Invasive Line 2 10 Sodium Chloride 0.9% 1, 800 350 000 ml @ 50 mls/hr IV . Q20H [facility] Rx#:[id number] cefTRIAXone 1 gm In 50 Sodium Chloride 0.9% 50 ml @ 100 mls/hr IVPB Q24HR [facility] Rx#:[id number] Oral 240 360 Output: Urine 325 350 Other: Voiding Method Urinal Urinal Urinal # Voids 1 # Bowel Movements 1 - Exam GENERAL: The patient is alert and oriented x3, not in any acute distress. Well developed, well nourished. HEENT: Pupils are round and equally reacting to light. EOMI. No scleral icterus. No conjunctival pallor. Normocephalic, atraumatic. No pharyngeal erythema. No thyromegaly. CARDIOVASCULAR: S1 and S2 present. No murmurs, rubs, or gallops. PULMONARY: Chest is clear to auscultation, no wheezing or crackles. ABDOMEN: Soft, nontender, nondistended, normoactive bowel sounds. No palpable organomegaly. MUSCULOSKELETAL: No joint swelling or deformity. EXTREMITIES: No cyanosis, clubbing, or pedal edema. NEUROLOGICAL: Gross neurological examination did not reveal any focal deficits. SKIN: No rashes. No petechiae - Labs CBC & Chem 7: 07/28/20 07:10 07/28/20 07:10 Labs: Abnormal Lab Results - Last 24 Hours (Table) 07/27/20 07/28/20 07/28/20 Range/Units 10:36 07:10 07:10 WBC 3.7 L (3.8-10.6) k/uL Neutrophils # (Manual) 0.04 L* (1.3-7.7) k/uL Monocytes # (Manual) 2.04 H (0-1.0) k/uL Myelocytes # (Manual) 0.04 H (0) k/uL Sodium 135 L (137-145) mmol/L BUN 36 H (9-20) mg/dL Procalcitonin 0.15 H (0.02-0.09) ng/mL Microbiology - Last 24 Hours (Table) 07/26/20 15:13 Blood Culture - Preliminary Blood No Growth after 24 hours Assessment and Plan Assessment: -Generalized weakness, with recent history of diarrhea for possible gastroenteritis. Possibly viral infection in view of his neutropenia -neutropenia, and consult hematology workup is undergoing -Vague right upper lobe density, possible pneumonia. Repeat chest x-ray showing improvement -Chronic mild dyspnea, mostly related to Coronary artery disease, recent cardiac cath showing total occlusion of the RCA with severe disease of LAD and circumflex, patient refused heart surgery before. Also secondary to mild COPD and chronic atrial fibrillation. -Neutropenia, possibly secondary to viral infection. Follow-up level -possible acute kidney injury, improved -Hypertension -Hyperlipidemia -Recently diagnosed with atrial fibrillation and started on anticoagulation -Peripheral artery disease with bilateral occluded SFA and bilateral popliteal arteries -COPD, not in acute exacerbation DVT prophylaxis: Eliquis Plan: This is a pleasant 79 years old male who presents with acute dyspnea. Continue with breathing treatment. Pulmonary and cardiology consult.Check proBNP. Check digoxin level . I will stop his prednisone because worsens his weakness, unless its restarted by pulmonary team. We will lower his normal saline to 50 mL per hour. Physical therapy evaluation . We will check TSH, B12 and folate Labs and medication were reviewed.. Continue same treatment. Continue with symptomatic treatment. Resume home medication. Monitor lytes and vitals. DVT and GI prophylaxis. Further recommendations depends on the clinical course of the patient DVT prophylaxis: Eliquis GI Prophylaxis: Pepcid Prognosis is guarded
--- NOTE | 2020-07-28 12:08 | P.CONS ---
History of Present Illness - Reason for Consult Consult date: 07/28/20 Neutropenia Requesting physician: Avtar E Sheet - Chief Complaint Shortness of breath, COPD exacerbation - History of Present Illness Mr. Lucero is a very pleasant 79-year-old male we've been asked to see in regards to isolated neutropenia. Patient denies any history of low blood counts or knowledge of low blood counts, no fevers, sweats, he has noticed persi stent and increased fatigue over the past month, he denies any nausea, vomiting, chest pain, new or unusual cough or sputum production, he recently had cardiac stent placement, no complications. Denies oral irritation, sore throat, difficulty swallowing, his bowels and bladder are at baseline for him, he did not serve in the , denies any chronic or recurring infections. He states that he has low energy levels, doesn't move around much but, currently he is still independent in most of his activities. Pending covid testing, he has been seen by Cardiology and Pulmonary Review of Systems 14 point review of systems is negative except as stated in HPI Past Medical History Past Medical History: Atrial Flutter, Coronary Artery Disease (CAD), Heart Failure, COPD, GERD/Reflux, Hearing Disorder / Deafness, Hyperlipidemia, Hypertension, Osteoarthritis (OA), Renal Disease, Vascular Disorder Additional Past Medical History / Comment(s): hx. gout, hx. colon polyps, circulation problems in legs, slight decreased kidney function, shingles History of Any Multi-Drug Resistant Organisms: None Reported Past Surgical History: Cholecystectomy, Heart Catheterization, Heart Catheterization With Stent Additional Past Surgical History / Comment(s): right bone graft to collar bone Past Anesthesia/Blood Transfusion Reactions: No Reported Reaction Date of Last Stent Placement:: 05/2020 Past Psychological History: No Psychological Hx Reported Smoking Status: Former smoker Past Alcohol Use History: None Reported Additional Past Alcohol Use History / Comment(s): quit smoking 2014, smoked 1ppd- 2PPD STARTED SMOKING AT AGE 14 Past Drug Use History: None Reported - Past Family History Mother Family Medical History: No Reported History Medications and Allergies Home Medications Medication Instructions Recorded Confirmed Type Atorvastatin [Lipitor] 20 mg PO DAILY@1300 10/17/18 07/26/20 History Budesonide/Formoterol Fumarate 2 puff INHALATION RT-BID@0100,1300 10/17/18 07/26/20 History [Symbicort 160-4.5 Mcg Inhaler] Digoxin [Lanoxin] 125 mcg PO DAILY@1300 10/17/18 07/26/20 History Metoprolol Succinate [Toprol XL] 50 mg PO DAILY@1300 10/17/18 07/26/20 History cilostazoL [Pletal] 50 mg PO DAILY@1300 10/17/18 07/26/20 History Fexofenadine HCl [Hanh Allergy] 180 mg PO DAILY PRN 05/02/20 07/26/20 History Vitamin B Complex 1 cap PO DAILY@1300 05/02/20 07/26/20 History Apixaban [Eliquis] 2.5 mg PO BID@0100,1300 06/05/20 07/26/20 History Aspirin 81 mg PO DAILY@1300 06/05/20 07/26/20 History Furosemide [Lasix] 20 mg PO DAILY@1300 06/05/20 07/26/20 History Clopidogrel [Plavix] 75 mg PO DAILY #30 tab 06/09/20 07/26/20 Rx Spironolactone [Aldactone] 25 mg PO DAILY #30 tab 06/09/20 07/26/20 Rx lisinopriL [Zestril] 2.5 mg PO DAILY #30 tab 06/09/20 07/26/20 Rx Naproxen Sodium [Aleve] 220 mg PO DAILY PRN 07/26/20 07/26/20 History Vitamin D (Unknown Strength) 1 tab PO DAILY 07/26/20 07/26/20 History Allergies Allergy/AdvReac Type Severity Reaction Status Date / Time Iodinated Contrast Media AdvReac Diarrhea, Verified 07/26/20 18:25 [Iodinated Contrast- Oral RASH and IV Dye] Physical Exam Vitals: Vital Signs Temp Pulse Pulse Resp BP Pulse Ox 07/28/20 09:22 97.6 F 71 16 107/71 94 L 07/28/20 04:00 76 18 111/70 98 07/28/20 00:00 98.2 F 86 18 132/78 96 07/27/20 20:00 97.7 F 70 20 103/60 96 07/27/20 16:00 98.7 F 69 18 107/74 93 L 07/27/20 12:28 76 07/27/20 12:16 76 Intake and Output 07/27/20 07/28/20 07/28/20 22:59 06:59 14:59 Intake Total 730 Output Total 325 350 Balance -325 380 Intake: IV 370 Invasive Line 1 10 Invasive Line 2 10 Sodium Chloride 0.9% 1, 350 000 ml @ 50 mls/hr IV . Q20H [facility] Rx#:[id number] Oral 360 Output: Urine 325 350 Other: Voiding Method Urinal Urinal Urinal # Voids 1 # Bowel Movements 1 Weight 87.2 kg - Constitutional General appearance: average body habitus, cooperative, no acute distress - EENT Eyes: anicteric sclerae, EOMI, poor dentition ENT: hearing grossly normal, normal oropharynx - Neck Neck: no lymphadenopathy - Respiratory Respiratory: bilateral: CTA, diminished - Cardiovascular Rhythm: regular Heart sounds: normal: S1, S2 Abnormal Heart Sounds: no systolic murmur, no diastolic murmur, no rub, no S3 Gallop, no S4 Gallop, no click, no other leg Peripheral Edema: bilateral: None - Gastrointestinal General gastrointestinal: no absent bowel sounds, no decreased bowel sounds, no distended, no hepatomegaly, no hyperactive bowel sounds, normal bowel sounds, no organomegaly, no rigid, no scaphoid, soft, no splenomegaly, no tenderness, no umbilical hernia, no ventral hernia - Neurologic Neurologic: CNII-XII intact - Musculoskeletal Musculoskeletal: generalized weakness, strength equal bilaterally - Psychiatric Psychiatric: A&O x's 3, appropriate affect, intact judgment & insight Results CBC & Chem 7: 07/28/20 07:10 07/28/20 07:10 Labs: Abnormal Lab Results - Last 24 Hours (Table) 07/27/20 07/28/20 07/28/20 Range/Units 10:36 07:10 07:10 WBC 3.7 L (3.8-10.6) k/uL Neutrophils # (Manual) 0.04 L* (1.3-7.7) k/uL Monocytes # (Manual) 2.04 H (0-1.0) k/uL Myelocytes # (Manual) 0.04 H (0) k/uL Sodium 135 L (137-145) mmol/L BUN 36 H (9-20) mg/dL Procalcitonin 0.15 H (0.02-0.09) ng/mL Microbiology - Last 24 Hours (Table) 07/26/20 15:13 Blood Culture - Preliminary Blood No Growth after 24 hours Comments: VQ scan report reviewed Chest x-ray: report reviewed Assessment and Plan (1) SOB (shortness of breath) Narrative/Plan: Patient admitted for the same. He is being followed by Internal Medicine, Cardiology and Pulmonary Pending covid testing Current Visit: Yes Status: Acute Priority: High Code(s): R06.02 - SHORT NESS OF BREATH SNOMED Code(s): 744169373 (2) Neutropenia Narrative/Plan: Differential diagnosis includes myelodysplastic syndrome, myelodysplasia, or underlying viral infection is a possibility. Workup for Neutropenia and Viruses has been ordered. Hold off on any addition of G-CSF at this time, there are no documented fevers. Current Visit: Yes Status: Acute Priority: High Code(s): D70.9 - NEUTROPENIA, UNSPECIFIED SNOMED Code(s): 835478182
--- NOTE | 2020-07-28 12:10 | P.PN ---
Subjective Progress Note Date: 07/28/20 Principal diagnosis: Coronary artery disease/cardiomyopathy/hypertension This is a pleasant 79-year-old gentleman with coronary artery disease as well as cardiomyopathy as well as paroxysmal atrial fibrillation as well as multiple comorbid conditions who was admitted to the hospital with symptoms of being tired and fatigued and he was found to be hypotensive. He was diagnosed with pneumonia and currently pulmonary critical care team is on the case. Patient was seen today July [id number]. He still feeling weak. The pressure has been marginally low. I am going to decrease the dose of metoprolol. He is on digoxin which we will continue. We'll continue following up with the patient Objective - Vital Signs Vital signs: Vital Signs Temp 97.6 F 07/28/20 09:22 Pulse 71 07/28/20 09:22 Resp 16 07/28/20 09:22 BP 107/71 07/28/20 09:22 Pulse Ox 94 L 07/28/20 09:22 Intake & Output 07/27/20 07/28/20 07/28/20 18:59 06:59 18:59 Intake Total 1090 730 Output Total 325 350 Balance 1090 -325 380 Weight 87.2 kg Intake: IV 850 370 Invasive Line 1 10 Invasive Line 2 10 Sodium Chloride 0.9% 1, 800 350 000 ml @ 50 mls/hr IV . Q20H [facility] Rx#:[id number] cefTRIAXone 1 gm In 50 Sodium Chloride 0.9% 50 ml @ 100 mls/hr IVPB Q24HR [facility] Rx#:[id number] Oral 240 360 Output: Urine 325 350 Other: Voiding Method Urinal Urinal Urinal # Voids 1 # Bowel Movements 1 - Constitutional General appearance: Present: no acute distress - Respiratory Respiratory: bilateral: CTA - Cardiovascular Heart sounds: normal: S1, S2 - Labs CBC & Chem 7: 07/28/20 07:10 07/28/20 07:10 Labs: Abnormal Lab Results - Last 24 Hours (Table) 07/27/20 07/28/20 07/28/20 Range/Units 10:36 07:10 07:10 WBC 3.7 L (3.8-10.6) k/uL Neutrophils # (Manual) 0.04 L* (1.3-7.7) k/uL Monocytes # (Manual) 2.04 H (0-1.0) k/uL Myelocytes # (Manual) 0.04 H (0) k/uL Sodium 135 L (137-145) mmol/L BUN 36 H (9-20) mg/dL Procalcitonin 0.15 H (0.02-0.09) ng/mL Microbiology - Last 24 Hours (Table) 07/26/20 15:13 Blood Culture - Preliminary Blood No Growth after 24 hours Assessment and Plan Assessment: Assessment #1 generalized weakness and fatigue #2 margin a low blood pressure next and #3 coronary artery disease #4 cardiomyopathy #5 long-standing persistent atrial fibrillation Plan #1 continue the current medical regimen #2 decrease the dose of metoprolol #3 continue digoxin and oral anticoagulation #4 follow-up with the patient
--- NOTE | 2020-07-28 12:39 | P.PN ---
Subjective Progress Note Date: 07/28/20 Principal diagnosis: Acute hypoxic respiratory failure secondary to sepsis of unclear etiology 79-year-old white male patient of Dr. Samano with known history of COPD with an FEV1 of 72% of predicted, CAD with recent history of stenting of the LAD, chronic atrial fibrillation, on Eliquis, ex-smoker, previous history of VATS for pleural effusion, hypertension, chronic kidney disease, who was transferred from [facility] where he presented to the emergency department with complaints of weakness for last 34 days, increased shortness of breath, cough, patient was a fever at the [facility], and hypotensive. Patient was complaining of some nausea, off and on diarrhea and poor oral intake. Patient denied fever at home, no hemoptysis, no abdominal pain, no headaches. Lab work showed neutropenia with a white blood cell count of 2.59, hemoglobin of 14.7, el ectrolytes were unremarkable, patient had elevated BUN and creatinine of 2.11, which is nearly doubled his baseline. His chest x-ray showed no infiltrates or evidence of acute heart failure. Liver enzymes were within normal limits, lactic acid was 2.6, and patient was fluid resuscitated, and currently his lactic acid is down to 1.2 at this hospital. Troponin was less than 0.017. Patient denied any leg swelling, no pleuritic chest pain, no headaches, visual changes, neck pain. No altered mentation, he had Covid 19 PCR done at [facility], and we don't have those results yet. He was transferred to [facility] where he has had most of his care including his cardiac cath eterizations and interventions. Chest x-ray was completed at this hospital showing COPD with basilar atelectasis, and vague density in the right upper lobe. Follow-up blood work at this hospital showed white blood cell count of 3.1, hemoglobin of 13.7, 4% bands, differential showed neutrophils of 0.4, lymphocytes 0.7, d-dimer was negative at 0.31, nevertheless patient went on to have a VQ scan which showed low probability for pulmonary embolism. Electrolytes are all within normal limits, renal profile shows improvement from labs completed at [facility] and BUN is down to 34 and creatinine is down to 1.37. LFTs are within normal limits. Urinalysis showed trace protein but negative for signs of infection. Patient is afebrile. Was started on empiric antibiotics in the form of azithromycin and Rocephin, breathing treatments, and gentle IV hydration continues currently at 50 ML per hour. Patient is seen today 07/28/2020 in follow-up on the selective care unit. He is currently resting comfortably in bed. Awake and alert in no acute distress. Maintaining O2 saturations in the mid 90s on 3 L/m per nasal cannula. He is afebrile. Hemodynamically stable. Blood culture reveals no growth to date. White count 3.7. Hemoglobin 13.7. Neutrophils 0.04. Monocytes 2.04. Myelo cytes 0.04. Sodium 135. Potassium 4.6. Creatinine 1.21. His proBNP 2180. TSH 1.92. He is currently on ceftriaxone and azithromycin. He remains on Symbicort, DuoNeb inhalations. Anticoagulated with Eliquis. Objective - Vital Signs Vital signs: Vital Signs Temp 97.6 F 07/28/20 09:22 Pulse 71 07/28/20 09:22 Resp 16 07/28/20 09:22 BP 107/71 07/28/20 09:22 Pulse Ox 94 L 07/28/20 09:22 Intake & Output 07/27/20 07/28/20 07/28/20 18:59 06:59 18:59 Intake Total 1090 730 Output Total 325 350 Balance 1090 -325 380 Weight 87.2 kg Intake: IV 850 370 Invasive Line 1 10 Invasive Line 2 10 Sodium Chloride 0.9% 1, 800 350 000 ml @ 50 mls/hr IV . Q20H [facility] Rx#:[id number] cefTRIAXone 1 gm In 50 Sodium Chloride 0.9% 50 ml @ 100 mls/hr IVPB Q24HR [facility] Rx#:[id number] Oral 240 360 Output: Urine 325 350 Other: Voiding Method Urinal Urinal Urinal # Voids 1 # Bowel Movements 1 - Exam GENERAL EXAM: Alert, very pleasant, 79-year-old male patient, currently on 3 L of oxygen pulse ox of 94% comfortable in no apparent distress. HEAD: Normocephalic/atraumatic. EYES: Normal reaction of pupils, equal size. Conjunctiva pink, sclera white. NOSE: Clear with pink turbinates. THROAT: No erythema or exudates. NECK: No masses, no JVD, no thyroid enlargement, no adenopathy. CHEST: No chest wall deformity. Symmetrical expansion. LUNGS: Equal air entry with coarse crackles in the posterior bases. CVS: Irregular rate and rhythm, normal S1 and S2, no gallops, no murmurs, no rubs ABDOMEN: Soft, nontender. No hepatosplenomegaly, normal bowel sounds, no guarding or rigidity. EXTREMITIES: No clubbing, no edema, no cyanosis, 2+ pulses and upper and lower extremities. MUSCULOSKELETAL: Muscle strength and tone normal. SPINE: No scoliosis or deformity SKIN: No rashes CENTRAL NERVOUS SYSTEM: No focal deficits, tone is normal in all 4 extremities. PSYCHIATRIC: Alert and oriented -3. Appropriate affect. Intact judgment and insight. - Labs CBC & Chem 7: 07/28/20 07:10 07/28/20 07:10 Labs: Abnormal Lab Results - Last 24 Hours (Table) 07/27/20 07/28/20 07/28/20 Range/Units 10:36 07:10 07:10 WBC 3.7 L (3.8-10.6) k/uL Neutrophils # (Manual) 0.04 L* (1.3-7.7) k/uL Monocytes # (Manual) 2.04 H (0-1.0) k/uL Myelocytes # (Manual) 0.04 H (0) k/uL Sodium 135 L (137-145) mmol/L BUN 36 H (9-20) mg/dL Procalcitonin 0.15 H (0.02-0.09) ng/mL Microbiology - Last 24 Hours (Table) 07/26/20 15:13 Blood Culture - Preliminary Blood No Growth after 24 hours Assessment and Plan Assessment: #1. Acute hypoxic respiratory failure possibly related to sepsis, with an undetermined source, chest x-ray did not show any acute pulmonary process on initial chest x-ray done at [facility], and follow-up chest x-ray at [facility] showed COPD with basilar atelectasis and a right upper lobe vague density, which was previously seen on the CT chest on 06/06/2020 and could be a small area of pneumonitis #2. Weakness, nausea, episodes of diarrhea, and episode of fever, COVID: 19 testing is pending at this time #3. Mild lactic acidosis, hypotension, tachycardia recovered with IV hydration #4. Acute kidney injury related to dehydration, and ATN, improved with IV hydration #5. Chronic kidney disease, stage III at baseline #6. Chronic A. fib on Eliquis #7. Coronary artery disease with previous PCI and stenting most recently with stenting of the LAD in June 2020 #8. Mild COPD, not oxygen dependent at baseline, with FEV1 of 72% of predicted #9. Tension #10. Hyperlipidemia #11. Former smoker, in remission since 2014, patient Sveta [id number] smoking history Plan: The patient was seen and evaluated by Dr. Parks Chest x-ray and labs reviewed Hematology consulted Continue the current treatment plan We'll continue to follow I, the cosigning physician, performed a history & physical examination of the patient. Lungs sounds with coarse crackles in the posterior bases. Maintaining good O2 saturations in the 90s on 3 L/m per nasal cannula. I discussed the assessment and plan of care with my nurse practitioner, Deepa Colon. I attest to the above note as dictated by her.
[2020-07-28] MEDS: APIXABAN 2.5 MG TABLET PO SCH (12:41)
[2020-07-28] MEDS: METOPROLOL SUCCINATE (ER) 25 MG TAB.ER.24H PO SCH (12:41)
[2020-07-28] MEDS: ATORVASTATIN 20 MG TAB PO SCH (12:41)
[2020-07-28] MEDS: ASPIRIN 81 MG PO SCH (12:41)
[2020-07-28] MEDS: DIGOXIN 125 MCG TAB PO SCH (12:41)
[2020-07-28 18:28] LABS: Protein, Total 5.5 g/dL (6.2-8.2)
[2020-07-28] MEDS: ACETAMINOPHEN TAB 325 MG TAB PO PRN (20:20)
[2020-07-28 20:57] LABS: % Iron Saturation 49.34 (15.00-50.00)
[2020-07-28 21:06] LABS: Ferritin 293.9 ng/mL (22.0-322.0)
[2020-07-29] MEDS: APIXABAN 2.5 MG TABLET PO SCH ×2 (00:15→13:27)
[2020-07-29] MEDS: ACETAMINOPHEN TAB 325 MG TAB PO PRN ×2 (00:16→06:13)
[2020-07-29] MEDS: SYMBICORT 160-4.5 MCG INHALER INHALATION SCH ×3 (06:15→21:39)
[2020-07-29 09:03] LABS: Calcium 8.8 mg/dL (8.4-10.2); Potassium 4.6 mmol/L (3.5-5.1)
[2020-07-29 09:05] LABS: HCT 43.5 % (39.0-53.0); HGB 14.5 gm/dL (13.0-17.5); MCH 30.2 pg (25.0-35.0); MCHC 33.3 g/dL (31.0-37.0); MCV 90.8 fL (80.0-100.0); Platelet Count 217 k/uL (150-450); RBC 4.79 m/uL (4.30-5.90); WBC 2.8 k/uL (3.8-10.6)
[2020-07-29 09:29] LABS: Free Kappa Lt Chain Qnt, Serum 2.08 mg/dL (0.33-1.94)
[2020-07-29] MEDS: CLOPIDOGREL 75 MG TAB PO SCH (09:46)
[2020-07-29] MEDS: AZITHROMYCIN 500 MG TAB PO SCH (09:46)
[2020-07-29] MEDS: SODIUM CHLORIDE 0.9% 1,000 ML IV SCH (09:47)
[2020-07-29 10:37] LABS: Neutrophils % (M) 4 %
[2020-07-29 10:38] LABS: Lymphocytes # (M) 1.85 k/uL (1.0-4.8); Metamyelocytes # (M) 0.03 k/uL (0); Metamyelocytes % 1 %; Monocytes # (M) 0.81 k/uL (0-1.0); Myelocytes # (M) 0.03 k/uL (0); Myelocytes % 1 %; Neutrophils # (M) 0.11 k/uL (1.3-7.7); Nucleated Red Blood Cells 0 /100 WBC (0-0); Total Cells Counted 200
--- NOTE | 2020-07-29 11:19 | P.PN ---
Subjective This is a pleasant 79 years old male with past medical history of coronary artery disease, hypertension, hyperlipidemia, COPD and follow-up with Dr. Patrick. Patient recently had 3 vessel coronary artery disease per cardiac cath with Dr. Monson however patient refused for surgery. He was in the hospital 06/05-06/09 for dyspnea which was multifactorial secondary to his coronary artery disease, mild COPD and chronic atrial fibrillation. Possible COPD and generalized weakness however when asked the patient he said his breathing is at baseline with no difficulty breathing, he has cough on and off at times but not bothering him currently and no chest pain. He says he came to the hospital because he feels generally weak for 3-4 days. Also his been having diarrhea about a week ago which is a stopped and his last bowel movement was 2 days ago w hich was normal. He denies chest pain or abdominal pain or nausea vomiting. No fever. As per documentation from ED his creatinine level was elevated 2.1 at [facility]. And his blood pressure was on the low side. Currently his creatinine is 1.3 which is close to his baseline. Blood pressure 108/56. Is saturating 95% on 3 L oxygen via nasal cannula. His PCP is Dr. Samano and his digital imager is Dr. Austin. He is not on home oxygen or steroids On admission vitals are stable. WBC is 3.1K, no neutrophils at 0.4. Creatinine is 1.3 which is close to baseline of 1.2-1.5. Rest of BMP, liver enzymes and UA were unremarkable. Troponin is negative was then 0.017.He has negative d-dimer 0.31 Chest x-ray: COPD with basilar atelectasis rather than pneumonia vague right upper lobe density" short-term CT of the chest follow-up VQ scan is low probability for PE In the emergency room and was started on normal saline at 100 mm per hour, prednisone 40 mg, ceftriaxone and Zithromax. 07/28/2020 Patient still feels generally weak, he still dyspneic especially with exertion, with little cough. No chest pain. No diarrhea and no abdominal pain. He is tolerating diet well. Patient is afebrile and vitals are stable. Left showing WBC of 3.7K, however neutrophil count went down to 0.04. TSH is normal at 1.9, pro-BNP is slightly elevated at 2180. Pro-calcitonin is slightly elevated at 0.15. B12 is still pending. Digoxin level is at reference range of 0.5. Coronal Vitas is still pending. 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 Physical therapy evaluation is pending 07/29/2020 Patient still feels generally he still have leukopenia today with WBC 12.8 K, neutrophil still low at 0.11. weak with little lightheadedness. He is not dyspneic, he is eating well, no diarrhea. Vitals are stable. His leukopenia is worse today at 2.7K, still have neutropenia at 0.11 K. BMP is unremarkable. Hematology consult is appreciated for his blood disorder. Covid test is negative as well as CMV IgM antibodies. We'll keep monitoring. Patient remains on Zithromax and Rocephin, his on normal saline at 50 mL per hour, he is on Eliquis 2.5 mg, he is on digoxin 125 g and metoprolol lower to 25 mg daily Objective - Vital Signs Vital signs: Vital Signs Temp 98.6 F 07/29/20 09:34 Pulse 72 07/29/20 09:53 Resp 16 07/29/20 09:53 BP 107/68 07/29/20 09:34 Pulse Ox 93 L 07/29/20 09:53 Intake & Output 07/28/20 07/29/20 07/29/20 18:59 06:59 18:59 Intake Total 1660 160 231 Output Total 650 1050 Balance 1010 -890 231 Weight 86.7 kg Intake: IV 460 160 10 Invasive Line 1 30 10 Invasive Line 2 30 Sodium Chloride 0.9% 1, 350 160 000 ml @ 50 mls/hr IV . Q20H [facility] Rx#:[id number] cefTRIAXone 1 gm In 50 Sodium Chloride 0.9% 50 ml @ 100 mls/hr IVPB Q24HR [facility] Rx#:[id number] Oral 1200 221 Output: Urine 650 1050 Other: Voiding Method Urinal Urinal Urinal # Voids 1 - Exam GENERAL: The patient is alert and oriented x3, not in any acute distress. Well developed, well nourished. HEENT: Pupils are round and equally reacting to light. EOMI. No scleral icterus. No conjunctival pallor. Normocephalic, atraumatic. No pharyngeal erythema. No thyromegaly. CARDIOVASCULAR: S1 and S2 present. No murmurs, rubs, or gallops. PULMONARY: Chest is clear to auscultation, no wheezing or crackles. ABDOMEN: Soft, nontender, nondistended, normoactive bowel sounds. No palpable organomegaly. MUSCULOSKELETAL: No joint swelling or deformity. EXTREMITIES: No cyanosis, clubbing, or pedal edema. NEUROLOGICAL: Gross neurological examination did not reveal any focal deficits. SKIN: No rashes. No petechiae - Labs CBC & Chem 7: 07/29/20 08:15 07/29/20 08:15 Labs: Abnormal Lab Results - Last 24 Hours (Table) 07/28/20 07/28/20 07/28/20 Range/Units 07:10 07:10 07:10 WBC (3.8-10.6) k/uL Neutrophils # (Manual) (1.3-7.7) k/uL Metamyelocytes # (Man) (0) k/uL Myelocytes # (Manual) (0) k/uL Sodium (137-145) mmol/L BUN (9-20) mg/dL Glucose (74-99) mg/dL TIBC 227 L (228-460) ug/dL Total Protein (PEP) 5.5 L (6.2-8.2) g/dL Vitamin B12 170.0 L (200.0-944.0) pg/mL Free Gore LC, Quant 2.08 H (0.33-1.94) mg/dL 07/29/20 07/29/20 Range/Units 08:15 08:15 WBC 2.8 L (3.8-10.6) k/uL Neutrophils # (Manual) 0.11 L* (1.3-7.7) k/uL Metamyelocytes # (Man) 0.03 H (0) k/uL Myelocytes # (Manual) 0.03 H (0) k/uL Sodium 135 L (137-145) mmol/L BUN 28 H (9-20) mg/dL Glucose 133 H (74-99) mg/dL TIBC (228-460) ug/dL Total Protein (PEP) (6.2-8.2) g/dL Vitamin B12 (200.0-944.0) pg/mL Free Gore LC, Quant (0.33-1.94) mg/dL Microbiology - Last 24 Hours (Table) 07/26/20 15:13 Blood Culture - Preliminary Blood No Growth after 48 hours Assessment and Plan Assessment: -Generalized weakness, with recent history of diarrhea for possible gastroenteritis. Possibly viral infection in view of his neutropenia -neutropenia, and consult hematology workup is undergoing -Vague right upper lobe density, possible pneumonia. Repeat chest x-ray showing improvement. -Chronic mild dyspnea, mostly related to Coronary artery disease, recent cardiac cath showing total occlusion of the RCA with severe disease of LAD and circumflex, patient refused heart surgery before. Also secondary to mild COPD and chronic atrial fibrillation. -Neutropenia, possibly secondary to viral infection. Follow-up level -possible acute kidney injury, improved -Hypertension -Hyperlipidemia -Recently diagnosed with atrial fibrillation and started on anticoagulation -Peripheral artery disease with bilateral occluded SFA and bilateral popliteal arteries -COPD, not in acute exacerbation DVT prophylaxis: Eliquis Plan: This is a pleasant 79 years old male who presents with acute dyspnea. Continue with breathing treatment. Pulmonary and cardiology consult.Check proBNP. Check digoxin level . I will stop his prednisone because worsens his weakness, unless its restarted by pulmonary team. We will lower his normal saline to 50 mL per hour. Physical therapy evaluation . We will check TSH, B12 and folate Labs and medication were reviewed.. Continue same treatment. Continue with symptomatic treatment. Resume home medication. Monitor lytes and vitals. DVT and GI prophylaxis. Further recommendations depends on the clinical course of the patient DVT prophylaxis: Eliquis GI Prophylaxis: Pepcid Prognosis is guarded
[2020-07-29] MEDS: ATORVASTATIN 20 MG TAB PO SCH (13:27)
[2020-07-29] MEDS: DIGOXIN 125 MCG TAB PO SCH (13:27)
[2020-07-29] MEDS: ASPIRIN 81 MG PO SCH (13:27)
[2020-07-29] MEDS: METOPROLOL SUCCINATE (ER) 25 MG TAB.ER.24H PO SCH (13:28)
[2020-07-29] MEDS ORDERED: COLCHICINE 0.6 MG EACH PO STA (13:32)
[2020-07-29] MEDS ORDERED: HYDROcodone/APAP 5-325MG 1 EACH TAB PO PRN (13:33)
--- NOTE | 2020-07-29 14:37 | P.PN ---
Subjective Progress Note Date: 07/29/20 This is an 79-year-old gentleman who follows regularly with Dr. Austin in the office. He has a past medical history significant for paroxysmal atrial fibrillation, on long-term anticoagulation in the form of Eliquis, coronary artery disease with recent PCI, stenting of the LAD with Impella assist by Dr. Austin, peripheral vascular disease, hypertension, hyperlipidemia, COPD, nicotine dependence. Patient also underwent an aortogram recently which revealed occluded bilateral SFAs and occluded bilateral popliteals. Patient presented to [facility] for evaluation of generalized weakness. According to the patient, he's been getting progressively more weak at home, even had an ep isode where he was walking and had to slump forward. He states he did not pass out at that time. He denies having any chest discomfort and overall his breathing has been stable. Patient was having diarrhea stools for 24-48 hours prior to going to the hospital as well. While at [facility], it was noted that the patient had some hypotension and medication adjustments were made. He was transferred here to [facility] because this is where his physicians are. He underwent an ultrasound of the gallbladder while he was there that showed multiple gallbladder polyps less than 5 mm in size. No shadowing calculi or surrounding fluid. Normal CBD. His blood pressure while there was 117/90, 102/68. Laboratory data performed at [place] [facility] was 834, white blood cell count 2.5, hemoglobin 14.7, hematocrit 45.6, platelet count 212. Sodium 135, potassium 5.1, chloride 98, BUN 31, creatinine 2.1, dig level I.1, troponin 0.017 blood cultures were obtained I don't have results of those chest x-ray showed cardiac enlargement with no acute process. The patient had most recently seen Dr. Austin in the office in June of this year. He had been on Brilinta but because of some symptoms of shortness of breath this was discontinued and patient was started on Plavix. Patient is currently under isolation, awaiting: Results. Data was reviewed on arrival here. Chest x-ray shows COPD, vague density in the right upper lobe which may represent superimposed structures. Short-term follow-up with CT recommended. VQ scan was performed which came back low probability for pulmonary embolism. Blood pressure 108/50 with a heart rate in the 70s 95% on 3 L of oxygen. White blood cell count 3.1, hemoglobin 13.7, platelet count 192. Sodium 136, potassium 34.7, BUN 34, creatinine 1.3. At present, the patient is on Eliquis 2-1/2 mg one tablet by mouth twice a day, 07/29/2020 Patient was seen and examined this morning, feeling a little stronger today. Hemodynamically stable. Blood pressure 110/68 with a heart rate in the 70s. We will follow this patient along with you now on an as-needed basis only, please don't hesitate to call if you have any questions. Objective - Vital Signs Vital signs: Vital Signs Temp 97.6 F 07/29/20 13:00 Pulse 93 07/29/20 13:00 Resp 16 07/29/20 13:00 BP 140/65 07/29/20 13:00 Pulse Ox 94 L 07/29/20 13:00 Intake & Output 07/28/20 07/29/20 07/29/20 18:59 06:59 18:59 Intake Total 1660 160 351 Output Total 650 1050 Balance 1010 -890 351 Weight 86.7 kg Intake: IV 460 160 10 Invasive Line 1 30 10 Invasive Line 2 30 Sodium Chloride 0.9% 1, 350 160 000 ml @ 50 mls/hr IV . Q20H [facility] Rx#:[id number] cefTRIAXone 1 gm In 50 Sodium Chloride 0.9% 50 ml @ 100 mls/hr IVPB Q24HR [facility]IE Rx#:[id number] Oral 1200 341 Output: Urine 650 1050 Other: Voiding Method Urinal Urinal Urinal # Voids 1 - Exam GENERAL EXAM: Alert, very pleasant, 79-year-old white male currently on 3 L of oxygen pulse ox of 94% comfortable in no apparent distress. HEAD: Normocephalic/atraumatic. EYES: Normal reaction of pupils, equal size. Conjunctiva pink, sclera white. NOSE: Clear with pink turbinates. THROAT: No erythema or exudates. NECK: No masses, no JVD, no thyroid enlargement, no adenopathy. CHEST: No chest wall deformity. Symmetrical expansion. LUNGS: Lungs reveal diminished air entry to the bases bilaterally . CVS: Irregular rate and rhythm, systolic murmur is heard ABDOMEN: Soft, nontender. No hepatosplenomegaly, normal bowel sounds, no guarding or rigidity. EXTREMITIES: No clubbing, no edema, no cyanosis, 2+ pulses and upper and lower extremities. MUSCULOSKELETAL: Muscle strength and tone normal. SPINE: No scoliosis or deformity SKIN: No rashes CENTRAL NERVOUS SYSTEM: Alert and oriented -3. No focal deficits, tone is normal in all 4 extremities. PSYCHIATRIC: Alert and oriented -3. Appropriate affect. Intact judgment and insight. - Labs CBC & Chem 7: 07/29/20 08:15 07/29/20 08:15 Labs: Abnormal Lab Results - Last 24 Hours (Table) 07/28/20 07/28/20 07/28/20 Range/Units 07:10 07:10 07:10 WBC (3.8-10.6) k/uL Neutrophils # (Manual) (1.3-7.7) k/uL Metamyelocytes # (Man) (0) k/uL Myelocytes # (Manual) (0) k/uL Sodium (137-145) mmol/L BUN (9-20) mg/dL Glucose (74-99) mg/dL TIBC 227 L (228-460) ug/dL Total Protein (PEP) 5.5 L (6.2-8.2) g/dL Vitamin B12 170.0 L (200.0-944.0) pg/mL Free [place] LC, Quant 2.08 H (0.33-1.94) mg/dL 07/29/20 07/29/20 Range/Units 08:15 08:15 WBC 2.8 L (3.8-10.6) k/uL Neutrophils # (Manual) 0.11 L* (1.3-7.7) k/uL Metamyelocytes # (Man) 0.03 H (0) k/uL Myelocytes # (Manual) 0.03 H (0) k/uL Sodium 135 L (137-145) mmol/L BUN 28 H (9-20) mg/dL Glucose 133 H (74-99) mg/dL TIBC (228-460) ug/dL Total Protein (PEP) (6.2-8.2) g/dL Vitamin B12 (200.0-944.0) pg/mL Free [place] LC, Quant (0.33-1.94) mg/dL Microbiology - Last 24 Hours (Table) 09/22/20 15:13 Blood Culture - Preliminary Blood No Growth after 48 hours Assessment and Plan Plan: Assessment and plan: #1. Acute hypoxic respiratory failure possibly related to sepsis, with an undetermined source, chest x-ray did not show any acute pulmonary process on initial chest x-ray done at [facility], and follow-up chest x-ray at [facility] showed COPD with basilar atelectasis and a right upper lobe vague density, which was previously seen on the CT chest on 06/06/2020 and could be a small area of pneumonitis #2. Weakness, nausea, episodes of diarrhea, and episode of fever, COVID: 19 testing is pending at this time #3. Mild lactic acidosis, hypotension, tachycardia recovered with IV hydration #4. Acute kidney injury related to dehydration, and ATN, improved with IV hydration #5. Chronic kidney disease, stage III at baseline #6. Chronic A. fib on Eliquis #7. Coronary artery disease with previous PCI and stenting most recently with stenting of the LAD in June 2020 #8. Mild COPD, not oxygen dependent at baseline, with FEV1 of 72% of predicted #9. Tension #10. Hyperlipidemia #11. Former smoker, in remission since 2014, patient Sveta [id number] smoking history Plan From cardiology's perspective, we'll recommend to continue the patient on his current medications. We will follow him along with you now on an as-needed basis only, please don't hesitate to call if he had any questions. DNP note has been reviewed, I agree with a documented findings and plan of care. Patient was seen and examined.
[2020-07-29 14:40] LABS: Gamma Globulin 0.78 g/dL (0.70-1.50)
--- NOTE | 2020-07-29 16:21 | CDI ---
Documentation Clarification Form Date: 07/29/2020 03:29:00 PM From: Viji Richardson RN, CCDS Admit Date: 07/26/2020 04:58:00 PM Patient Name: Balwinder Lucero Visit Number: [id number] Discharge Date: ATTENTION: The Clinical Documentation Specialists (CDI) and [facility] Coding Staff appreciate your assistance in clarifying documentation. Please respond to the clarification below the line at the bottom and electronically sign. The CDI & [facility] Coding staff will review the response and follow-up if needed. Please note: Queries are made part of the Legal Health Record. If you have any questions, please contact the author of this message via ITS. Dr. Nova Sheet The patient presented with shortness of breath, documented febrile at [facility] with low blood pressure. Sepsis was documented in the ED assessment, Cardiology consult and progress notes and in the Pulmonary consult and progress notes. Please clarify if Sepsis is ruled in and POA or ruled out. History/Risk Factors: Atrial Flbrillation, Coronary artery disease, Heart Failure, COPD, Hypertension, Renal disease. Clinical Indicators: 79-year-old male who present as a transfer from [facility] with shortness of breath. with history of fever, leukopenia an elevated heart rate. 07/26 ED clinical impression: "SOB, Nausea, Tachycardia Lactic acidosis, Leukopenia Fever, Cough History of COPD, Generalized weakness, Gall bladder poly, Sepsis 07/27 Pulmonary consult: "Acute hypoxic respiratory Failure possible related to sepsis, with an undetermined source, chest x-ray did not show any acute pulmonary process on initial chest x-ray done at [facility]. follow-up chest x-ray at [facility] showed COPD with basilar atelectasis and a right upper lobe vague density, which was previously seen on CT chest on 06/06/2020. and could be a small area of pneumonitis". 07/28 Oncology consult: Neutropenia differential diagnosis includes myelodyplastic syndrome myelodysplasia, or underlying viral infection is a possibility 07/26 Labs WBC 3.1, Neutorphils 0.40, BUN 34, CR 1.37, Lactic acid 1.2 07/27 Coronavirus : Not detected CMV IgM Ab Non-Reactive 07/26 Blood cultures: No Growth after 48 hours 07/26 Vitals signs on admission: 114/56 104 18 98.4 97% 3/L NC Treatment: Duoneb 0.1 mg Q4 PRN Zithromax 500 mg po daily Symbicort 160-4.5 Mcg inhaler inhalation bid Rocephin 1 gm ivpb q 24 hrs .9% NS @ 50 mls/hr In your professional opinion, please clarify if these findings signify one of the following conditions, whether the condition is POA, and cause, if known: Condition Sepsis ruled out Sepsis, POA Other, please specify Unable to determine SIRS Criteria (2 or more of the following may indicate SIRS): -Temperature < 96.8F (36C) or > 101.0F (38.3C) -Heart Rate > 90 bpm -Respiratory Rate > 20 breaths/min or PaCO2 < 32 mmHg -White Blood Cell Count > 12,000 or < 4,000 cells/mm3 or > 10% bands -Lactate >2.0 mmol/L (>4.0 is equivalent to septic shock) (Last Revision: February 2018) no sepsis MTDD
--- NOTE | 2020-07-29 19:33 | P.PN ---
Subjective Progress Note Date: 07/29/20 Principal diagnosis: Isolated Neutropenia Patient remains neutropenic, family at bedside during evaluation Objective - Vital Signs Vital signs: Vital Signs Temp 98.4 F 07/29/20 15:55 Pulse 74 07/29/20 18:32 Resp 16 07/29/20 15:55 BP 117/72 07/29/20 15:55 Pulse Ox 96 07/29/20 15:55 Intake & Output 07/29/20 07/29/20 07/30/20 06:59 18:59 06:59 Intake Total 160 1061 Output Total 1050 550 Balance -890 511 Weight 86.7 kg Intake: IV 160 480 Invasive Line 1 30 Sodium Chloride 0.9% 1, 160 400 000 ml @ 50 mls/hr IV . Q20H [facility] Rx#:[id number] cefTRIAXone 1 gm In 50 Sodium Chloride 0.9% 50 ml @ 100 mls/hr IVPB Q24HR [facility] Rx#:[id number] Oral 581 Output: Urine 1050 550 Other: Voiding Method Urinal Urinal # Voids 1 - Exam - Constitutional General appearance: average body habitus, cooperative, no acute distress - EENT Eyes: anicteric sclerae, EOMI, poor dentition ENT: hearing grossly normal, normal oropharynx - Neck Neck: no lymphadenopathy - Respiratory Respiratory: bilateral: CTA, diminished - Cardiovascular Rhythm: regular Heart sounds: normal: S1, S2 Abnormal Heart Sounds: no systolic murmur, no diastolic murmur, no rub, no S3 Gallop, no S4 Gallop, no click, no other leg Peripheral Edema: bilateral: None - Gastrointestinal General gastrointestinal: no absent bowel sounds, no decreased bowel sounds, no distended, no hepatomegaly, no hyperactive bowel sounds, normal bowel sounds, no organomegaly, no rigid, no scaphoid, soft, no splenomegaly, no tenderness, no umbilical hernia, no ventral hernia - Neurologic Neurologic: CNII-XII intact - Musculoskeletal Musculoskeletal: generalized weakness, strength equal bilaterally - Psychiatric Psychiatric: A&O x's 3, appropriate affect, intact judgment & insight - Labs CBC & Chem 7: 07/29/20 08:15 07/29/20 08:15 Labs: Abnormal Lab Results - Last 24 Hours (Table) 07/28/20 07/28/20 07/28/20 Range/Units 07:10 07:10 07:10 WBC (3.8-10.6) k/uL Neutrophils # (Manual) (1.3-7.7) k/uL Metamyelocytes # (Man) (0) k/uL Myelocytes # (Manual) (0) k/uL Sodium (137-145) mmol/L BUN (9-20) mg/dL Glucose (74-99) mg/dL TIBC 227 L (228-460) ug/dL Albumin (PEP) 2.90 L (3.80-4.90) g/dL Vitamin B12 170.0 L (200.0-944.0) pg/mL Free [place] LC, Quant 2.08 H (0.33-1.94) mg/dL 07/29/20 07/29/20 Range/Units 08:15 08:15 WBC 2.8 L (3.8-10.6) k/uL Neutrophils # (Manual) 0.11 L* (1.3-7.7) k/uL Metamyelocytes # (Man) 0.03 H (0) k/uL Myelocytes # (Manual) 0.03 H (0) k/uL Sodium 135 L (137-145) mmol/L BUN 28 H (9-20) mg/dL Glucose 133 H (74-99) mg/dL TIBC (228-460) ug/dL Albumin (PEP) (3.80-4.90) g/dL Vitamin B12 (200.0-944.0) pg/mL Free [place] LC, Quant (0.33-1.94) mg/dL Microbiology - Last 24 Hours (Table) 07/26/20 15:13 Blood Culture - Preliminary Blood No Growth after 72 hours Assessment and Plan Plan: Comments: VQ scan report reviewed Chest x-ray: report reviewed Assessment and Plan SOB (shortness of breath) Patient admitted for the same. He is being followed by Internal Medicine, Cardiology and Pulmonary Negative covid testing Neutropenia - Isolated Neutropenia - Consumption versus Production - Will Trial Solumedrol 60 q8 with PPI and re-evaluate saturday - If no improvement will set up for bone marrow biopsy Discussed in detail with patient and family. Physician Attest: I have completed the full history and physical and agree with above dictation, dictated as a scribe
[2020-07-29] MEDS: methylPREDNISolone SOD SUCCI 125 MG/2 ML VIAL IV SCH ×2 (20:31→23:02)
[2020-07-29] MEDS: CYANOCOBALAMIN 500 MCG TAB PO SCH (20:42)
[2020-07-29 20:49] LABS: Glucose,Whole Blood 140 mg/dL (75-99)
[2020-07-30] MEDS: APIXABAN 2.5 MG TABLET PO SCH ×2 (00:12→13:22)
[2020-07-30] MEDS: PANTOPRAZOLE 40 MG TABLET PO SCH ×2 (06:33→15:55)
[2020-07-30] MEDS: INSULIN ASPART (NovoLOG) 100 UNIT/ML VIAL SQ SCH ×4 (06:34→20:47)
[2020-07-30 06:35] LABS: Glucose,Whole Blood 163 mg/dL (75-99)
[2020-07-30] MEDS: SYMBICORT 160-4.5 MCG INHALER INHALATION SCH ×2 (07:34→19:57)
[2020-07-30] MEDS: CYANOCOBALAMIN 500 MCG TAB PO SCH (08:11)
[2020-07-30] MEDS: CLOPIDOGREL 75 MG TAB PO SCH (08:11)
[2020-07-30] MEDS: AZITHROMYCIN 500 MG TAB PO SCH (08:11)
[2020-07-30] MEDS: methylPREDNISolone SOD SUCCI 125 MG/2 ML VIAL IV SCH ×2 (08:12→15:55)
[2020-07-30] MEDS: SODIUM CHLORIDE 0.9% 1,000 ML IV SCH (08:12)
[2020-07-30 08:15] LABS: HCT 45.1 % (39.0-53.0); HGB 15.2 gm/dL (13.0-17.5); MCH 30.2 pg (25.0-35.0); MCHC 33.6 g/dL (31.0-37.0); MCV 89.7 fL (80.0-100.0); Mean Platelet Volume 6.9; Platelet Count 242 k/uL (150-450); RBC 5.03 m/uL (4.30-5.90); RDW 14.9 % (11.5-15.5)
[2020-07-30 08:18] LABS: WBC 1.7 k/uL (3.8-10.6)
[2020-07-30 08:24] LABS: Calcium 9.2 mg/dL (8.4-10.2); Potassium 4.9 mmol/L (3.5-5.1); Uric Acid 8.7 mg/dL (3.5-8.5)
[2020-07-30 09:07] LABS: Neutrophils % (M) 17 %
[2020-07-30 09:08] LABS: Band Neutrophils % 4 %; Basophils # (M) 0.02 k/uL (0-0.2); Lymphocytes # (M) 0.85 k/uL (1.0-4.8); Monocytes # (M) 0.46 k/uL (0-1.0)
[2020-07-30 09:09] LABS: Metamyelocytes # (M) 0.05 k/uL (0); Metamyelocytes % 3 %; Nucleated Red Blood Cells 0 /100 WBC (0-0); Total Cells Counted 200
--- NOTE | 2020-07-30 10:04 | P.PN ---
Subjective This is a pleasant 79 years old male with past medical history of coronary artery disease, hypertension, hyperlipidemia, COPD and follow-up with Dr. Patrick. Patient recently had 3 vessel coronary artery disease per cardiac cath with Dr. Monson however patient refused for surgery. He was in the hospital 06/05-06/09 for dyspnea which was multifactorial secondary to his coronary artery disease, mild COPD and chronic atrial fibrillation. Possible COPD and generalized weakness however when asked the patient he said his breathing is at baseline with no difficulty breathing, he has cough on and off at times but not bothering him currently and no chest pain. He says he came to the hospital because he feels generally weak for 3-4 days. Also his been having diarrhea about a week ago which is a stopped and his last bowel movement was 2 days ago w hich was normal. He denies chest pain or abdominal pain or nausea vomiting. No fever. As per documentation from ED his creatinine level was elevated 2.1 at [facility]. And his blood pressure was on the low side. Currently his creatinine is 1.3 which is close to his baseline. Blood pressure 108/56. Is saturating 95% on 3 L oxygen via nasal cannula. His PCP is Dr. Samano and his regulatory compliance specialist is Dr. Austin. He is not on home oxygen or steroids On admission vitals are stable. WBC is 3.1K, no neutrophils at 0.4. Creatinine is 1.3 which is close to baseline of 1.2-1.5. Rest of BMP, liver enzymes and UA were unremarkable. Troponin is negative was then 0.017.He has negative d-dimer 0.31 Chest x-ray: COPD with basilar atelectasis rather than pneumonia vague right upper lobe density" short-term CT of the chest follow-up VQ scan is low probability for PE In the emergency room and was started on normal saline at 100 mm per hour, prednisone 40 mg, ceftriaxone and Zithromax. 07/28/2020 Patient still feels generally weak, he still dyspneic especially with exertion, with little cough. No chest pain. No diarrhea and no abdominal pain. He is tolerating diet well. Patient is afebrile and vitals are stable. Left showing WBC of 3.7K, however neutrophil count went down to 0.04. TSH is normal at 1.9, pro-BNP is slightly elevated at 2180. Pro-calcitonin is slightly elevated at 0.15. B12 is still pending. Digoxin level is at reference range of 0.5. Coronal Vitas is still pending. 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 Physical therapy evaluation is pending 07/29/2020 Patient still feels generally he still have leukopenia today with WBC 12.8 K, neutrophil still low at 0.11. weak with little lightheadedness. He is not dyspneic, he is eating well, no diarrhea. Vitals are stable. His leukopenia is worse today at 2.7K, still have neutropenia at 0.11 K. BMP is unremarkable. Hematology consult is appreciated for his blood disorder. Covid test is negative as well as CMV IgM antibodies. We'll keep monitoring. Patient remains on Zithromax and Rocephin, his on normal saline at 50 mL per hour, he is on Eliquis 2.5 mg, he is on digoxin 125 g and metoprolol lower to 25 mg daily 07/30/2020 Patient feels little better today is weakness is improving and his dyspnea is improving. He is on room air. He had tried to gout attack yesterday and received 1 dose of colchicine an [place] and he feels better today and the pain is minimal today. Hematology input is appreciated patient has neutropenia, start him on steroids and if no improvement they recommended bone marrow biopsy. Vitamin B12 was low at 170 and his been replaced. No injection is given because patient refused and because of risk of hematoma as he is on Eliquis. Patient instructed to check his level with his doctor within 1-2 months of vitamin B12 and he agrees. Risks including but not limited to pancytopenia and neurological deficits which could be permanent (or dementia are explained for the patient and he verbalized that understanding and acceptance. His WBC is down to 1.7K today however his interval improvement to 0.30. BMP is unremarkable and creatinine is normal at 0.9. IV fluid was a stopped. Keep monitoring creatinine. Objective - Vital Signs Vital signs: Vital Signs Temp 97.9 F 07/30/20 08:00 Pulse 72 07/30/20 08:00 Resp 14 07/30/20 08:00 BP 131/77 07/30/20 08:00 Pulse Ox 94 L 07/30/20 08:00 Intake & Output 07/29/20 07/30/20 07/30/20 18:59 06:59 18:59 Intake Total 1061 200 Output Total 550 650 Balance 511 -650 200 Weight 85.9 kg Intake: IV 480 Invasive Line 1 30 Sodium Chloride 0.9% 1, 400 000 ml @ 50 mls/hr IV . Q20H [facility] Rx#:[id number] cefTRIAXone 1 gm In 50 Sodium Chloride 0.9% 50 ml @ 100 mls/hr IVPB Q24HR [facility] Rx#:[id number] Oral 581 200 Output: Urine 550 650 Other: Voiding Method Urinal Urinal Urinal # Voids 1 - Exam GENERAL: The patient is alert and oriented x3, not in any acute distress. Well developed, well nourished. HEENT: Pupils are round and equally reacting to light. EOMI. No scleral icterus. No conjunctival pallor. Normocephalic, atraumatic. No pharyngeal erythema. No thyromegaly. CARDIOVASCULAR: S1 and S2 present. No murmurs, rubs, or gallops. PULMONARY: Chest is clear to auscultation, no wheezing or crackles. ABDOMEN: Soft, nontender, nondistended, normoactive bowel sounds. No palpable organomegaly. MUSCULOSKELETAL: No joint swelling or deformity. EXTREMITIES: No cyanosis, clubbing, or pedal edema. NEUROLOGICAL: Gross neurological examination did not reveal any focal deficits. SKIN: No rashes. No petechiae - Labs CBC & Chem 7: 07/30/20 07:30 07/30/20 07:30 Labs: Abnormal Lab Results - Last 24 Hours (Table) 07/28/20 07/29/20 07/29/20 Range/Units 07:10 08:15 20:47 WBC (3.8-10.6) k/uL Neutrophils # (Manual) 0.11 L* (1.3-7.7) k/uL Lymphocytes # (Manual) (1.0-4.8) k/uL Metamyelocytes # (Man) 0.03 H (0) k/uL Myelocytes # (Manual) 0.03 H (0) k/uL Sodium (137-145) mmol/L BUN (9-20) mg/dL Glucose (74-99) mg/dL POC Glucose (mg/dL) 140 H (75-99) mg/dL Uric Acid (3.5-8.5) mg/dL Albumin (PEP) 2.90 L (3.80-4.90) g/dL 07/30/20 07/30/20 07/30/20 Range/Units 06:27 07:30 07:30 WBC 1.7 L (3.8-10.6) k/uL Neutrophils # (Manual) 0.30 L* (1.3-7.7) k/uL Lymphocytes # (Manual) 0.85 L (1.0-4.8) k/uL Metamyelocytes # (Man) 0.05 H (0) k/uL Myelocytes # (Manual) (0) k/uL Sodium 134 L (137-145) mmol/L BUN 21 H (9-20) mg/dL Glucose 157 H (74-99) mg/dL POC Glucose (mg/dL) 163 H (75-99) mg/dL Uric Acid 8.7 H (3.5-8.5) mg/dL Albumin (PEP) (3.80-4.90) g/dL Microbiology - Last 24 Hours (Table) 07/26/20 15:13 Blood Culture - Preliminary Blood No Growth after 72 hours Assessment and Plan Assessment: -Generalized weakness, with recent history of diarrhea for possible gastroenter itis. Possibly viral infection in view of his neutropenia -neutropenia, and consult hematology workup is undergoing -Vague right upper lobe density, possible pneumonia. Repeat chest x-ray showing improvement. -Chronic mild dyspnea, mostly related to Coronary artery disease, recent cardiac cath showing total occlusion of the RCA with severe disease of LAD and circumflex, patient refused heart surgery before. Also secondary to mild COPD and chronic atrial fibrillation. -Neutropenia, possibly secondary to viral infection. Follow-up level -possible acute kidney injury, improved -Hypertension -Hyperlipidemia -Recently diagnosed with atrial fibrillation and started on anticoagulation -Peripheral artery disease with bilateral occluded SFA and bilateral popliteal arteries -COPD, not in acute exacerbation DVT prophylaxis: Eliquis Plan: This is a pleasant 79 years old male who presents with acute dyspnea. Continue with breathing treatment. Pulmonary and cardiology consult.Check proBNP. Check digoxin level . I will stop his prednisone because worsens his weakness, unless its restarted by pulmonary team. We will lower his normal saline to 50 mL per hour. Physical therapy evaluation . We will check TSH, B12 and folate Labs and medication were reviewed.. Continue same treatment. Continue with symptomatic treatment. Resume home medication. Monitor lytes and vitals. DVT and GI prophylaxis. Further recommendations depends on the clinical course of the patient DVT prophylaxis: Eliquis GI Prophylaxis: Pepcid Prognosis is guarded
[2020-07-30 10:31] LABS: Methylmalonic Acid 0.25 umol/L (<0.40)
[2020-07-30] MEDS: ATORVASTATIN 20 MG TAB PO SCH (13:22)
[2020-07-30] MEDS: DIGOXIN 125 MCG TAB PO SCH (13:22)
[2020-07-30] MEDS: ASPIRIN 81 MG PO SCH (13:22)
[2020-07-30] MEDS: METOPROLOL SUCCINATE (ER) 25 MG TAB.ER.24H PO SCH (13:22)
[2020-07-30 13:23] LABS: Glucose,Whole Blood 210 mg/dL (75-99)
[2020-07-30 17:08] LABS: Glucose,Whole Blood 121 mg/dL (75-99)
[2020-07-30 20:32] LABS: Glucose,Whole Blood 178 mg/dL (75-99)
[2020-07-31] MEDS: methylPREDNISolone SOD SUCCI 125 MG/2 ML VIAL IV SCH ×4 (00:01→23:05)
[2020-07-31] MEDS: APIXABAN 2.5 MG TABLET PO SCH ×3 (00:01→23:05)
[2020-07-31 06:30] LABS: Glucose,Whole Blood 137 mg/dL (75-99)
[2020-07-31] MEDS: PANTOPRAZOLE 40 MG TABLET PO SCH ×2 (06:35→15:51)
[2020-07-31] MEDS: INSULIN ASPART (NovoLOG) 100 UNIT/ML VIAL SQ SCH ×4 (06:35→21:24)
[2020-07-31 06:58] LABS: Glucose,Whole Blood 137 mg/dL (75-99)
[2020-07-31] MEDS: SYMBICORT 160-4.5 MCG INHALER INHALATION SCH ×2 (07:22→18:47)
[2020-07-31] MEDS: AZITHROMYCIN 500 MG TAB PO SCH (08:11)
[2020-07-31] MEDS: CLOPIDOGREL 75 MG TAB PO SCH (08:11)
[2020-07-31] MEDS: CYANOCOBALAMIN 500 MCG TAB PO SCH (08:11)
[2020-07-31 09:46] LABS: HCT 46.6 % (39.0-53.0); HGB 15.6 gm/dL (13.0-17.5); MCH 30.8 pg (25.0-35.0); MCHC 33.5 g/dL (31.0-37.0); MCV 91.7 fL (80.0-100.0); Mean Platelet Volume 7.3; Platelet Count 294 k/uL (150-450); RBC 5.08 m/uL (4.30-5.90); RDW 15.3 % (11.5-15.5); WBC 4.3 k/uL (3.8-10.6)
[2020-07-31 12:03] LABS: Glucose,Whole Blood 172 mg/dL (75-99)
[2020-07-31] MEDS: DIGOXIN 125 MCG TAB PO SCH (12:39)
[2020-07-31] MEDS: METOPROLOL SUCCINATE (ER) 25 MG TAB.ER.24H PO SCH (12:39)
[2020-07-31] MEDS: ATORVASTATIN 20 MG TAB PO SCH (12:39)
[2020-07-31] MEDS: ASPIRIN 81 MG PO SCH (12:39)
--- NOTE | 2020-07-31 13:50 | P.PN ---
Subjective This is a pleasant 79 years old male with past medical history of coronary artery disease, hypertension, hyperlipidemia, COPD and follow-up with Dr. Patrick. Patient recently had 3 vessel coronary artery disease per cardiac cath with Dr. Monson however patient refused for surgery. He was in the hospital 06/05-06/09 for dyspnea which was multifactorial secondary to his coronary artery disease, mild COPD and chronic atrial fibrillation. Possible COPD and generalized weakness however when asked the patient he said his breathing is at baseline with no difficulty breathing, he has cough on and off at times but not bothering him currently and no chest pain. He says he came to the hospital because he feels generally weak for 3-4 days. Also his been having diarrhea about a week ago which is a stopped and his last bowel movement was 2 days ago w hich was normal. He denies chest pain or abdominal pain or nausea vomiting. No fever. As per documentation from ED his creatinine level was elevated 2.1 at [facility]. And his blood pressure was on the low side. Currently his creatinine is 1.3 which is close to his baseline. Blood pressure 108/56. Is saturating 95% on 3 L oxygen via nasal cannula. His PCP is Dr. Samano and his produce assistant is Dr. Austin. He is not on home oxygen or steroids On admission vitals are stable. WBC is 3.1K, no neutrophils at 0.4. Creatinine is 1.3 which is close to baseline of 1.2-1.5. Rest of BMP, liver enzymes and UA were unremarkable. Troponin is negative was then 0.017.He has negative d-dimer 0.31 Chest x-ray: COPD with basilar atelectasis rather than pneumonia vague right upper lobe density" short-term CT of the chest follow-up VQ scan is low probability for PE In the emergency room and was started on normal saline at 100 mm per hour, prednisone 40 mg, ceftriaxone and Zithromax. 07/28/2020 Patient still feels generally weak, he still dyspneic especially with exertion, with little cough. No chest pain. No diarrhea and no abdominal pain. He is tolerating diet well. Patient is afebrile and vitals are stable. Left showing WBC of 3.7K, however neutrophil count went down to 0.04. TSH is normal at 1.9, pro-BNP is slightly elevated at 2180. Pro-calcitonin is slightly elevated at 0.15. B12 is still pending. Digoxin level is at reference range of 0.5. Coronal Vitas is still pending. 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 Physical therapy evaluation is pending 07/29/2020 Patient still feels generally he still have leukopenia today with WBC 12.8 K, neutrophil still low at 0.11. weak with little lightheadedness. He is not dyspneic, he is eating well, no diarrhea. Vitals are stable. His leukopenia is worse today at 2.7K, still have neutropenia at 0.11 K. BMP is unremarkable. Hematology consult is appreciated for his blood disorder. Covid test is negative as well as CMV IgM antibodies. We'll keep monitoring. Patient remains on Zithromax and Rocephin, his on normal saline at 50 mL per hour, he is on Eliquis 2.5 mg, he is on digoxin 125 g and metoprolol lower to 25 mg daily 07/30/2020 Patient feels little better today is weakness is improving and his dyspnea is improving. He is on room air. He had tried to gout attack yesterday and received 1 dose of colchicine an [place] and he feels better today and the pain is minimal today. Hematology input is appreciated patient has neutropenia, start him on steroids and if no improvement they recommended bone marrow biopsy. Vitamin B12 was low at 170 and his been replaced. No injection is given because patient refused and because of risk of hematoma as he is on Eliquis. Patient instructed to check his level with his doctor within 1-2 months of vitamin B12 and he agrees. Risks including but not limited to pancytopenia and neurological deficits which could be permanent (or dementia are explained for the patient and he verbalized that understanding and acceptance. His WBC is down to 1.7K today however his interval improvement to 0.30. BMP is unremarkable and creatinine is normal at 0.9. IV fluid was a stopped. Keep monitoring creatinine. 07/31/2020 Patient states that his dyspnea is somewhat better, as well as his weakness is a slightly improved. No respiratory symptoms and he saturating 94% on room air. WBC is back to normal today at 4.3. Sugar controlled. We'll check his neutrophil tomorrow Vitamin B12 is been replaced. Pro-calcitonin is normal. We will check chest x- ray Citizenship Teacher team on the case Objective - Vital Signs Vital signs: Vital Signs Temp 98.2 F 07/31/20 12:28 Pulse 74 07/31/20 12:28 Resp 16 07/31/20 12:28 BP 132/76 07/31/20 12:28 Pulse Ox 94 L 07/31/20 12:28 Intake & Output 07/30/20 07/31/20 07/31/20 18:59 06:59 18:59 Intake Total 820 300 Output Total 525 500 Balance 295 -500 300 Weight 84.5 kg Intake: IV 20 Invasive Line 3 20 Oral 800 300 Output: Urine 525 500 Other: Voiding Method Urinal Urinal Urinal - Exam GENERAL: The patient is alert and oriented x3, not in any acute distress. Well developed, well nourished. HEENT: Pupils are round and equally reacting to light. EOMI. No scleral icterus. No conjunctival pallor. Normocephalic, atraumatic. No pharyngeal erythema. No t hyromegaly. CARDIOVASCULAR: S1 and S2 present. No murmurs, rubs, or gallops. PULMONARY: Chest is clear to auscultation, no wheezing or crackles. ABDOMEN: Soft, nontender, nondistended, normoactive bowel sounds. No palpable organomegaly. MUSCULOSKELETAL: No joint swelling or deformity. EXTREMITIES: No cyanosis, clubbing, or pedal edema. NEUROLOGICAL: Gross neurological examination did not reveal any focal deficits. SKIN: No rashes. No petechiae - Labs CBC & Chem 7: 07/31/20 08:22 07/30/20 07:30 Labs: Abnormal Lab Results - Last 24 Hours (Table) 07/30/20 07/30/20 07/31/20 Range/Units 16:51 20:20 06:28 POC Glucose (mg/dL) 121 H 178 H 137 H (75-99) mg/dL 07/31/20 07/31/20 Range/Units 06:52 12:00 POC Glucose (mg/dL) 137 H 172 H (75-99) mg/dL Microbiology - Last 24 Hours (Table) 07/26/20 15:13 Blood Culture - Preliminary Blood No Growth after 96 hours Assessment and Plan Assessment: -Generalized weakness, with recent history of diarrhea for possible gastroenteritis. Possibly viral infection in view of his neutropenia -neutropenia, and consult hematology workup is undergoing -Vague right upper lobe density, possible pneumonia. Repeat chest x-ray showing improvement. -Chronic mild dyspnea, mostly related to Coronary artery disease, recent cardiac cath showing total occlusion of the RCA with severe disease of LAD and circumflex, patient refused heart surgery before. Also secondary to mild COPD and chronic atrial fibrillation. -Neutropenia, possibly secondary to viral infection. Follow-up level -possible acute kidney injury, improved -Hypertension -Hyperlipidemia -Recently diagnosed with atrial fibrillation and started on anticoagulation -Peripheral artery disease with bilateral occluded SFA and bilateral popliteal arteries -COPD, not in acute exacerbation DVT prophylaxis: Eliquis Plan: This is a pleasant 79 years old male who presents with acute dyspnea. Continue with breathing treatment. Pulmonary and cardiology consult.Check proBNP. Check digoxin level . I will stop his prednisone because worsens his weakness, unless its restarted by pulmonary team. We will lower his normal saline to 50 mL per hour. Physical therapy evaluation . We will check TSH, B12 and folate Labs and medication were reviewed.. Continue same treatment. Continue with symptomatic treatment. Resume home medication. Monitor lytes and vitals. DVT and GI prophylaxis. Further recommendations depends on the clinical course of the patient DVT prophylaxis: Eliquis GI Prophylaxis: Pepcid Prognosis is guarded
[2020-07-31 14:09] LABS: Band Neutrophils % 4 %; Lymphocytes # (M) 1.59 k/uL (1.0-4.8); Metamyelocytes # (M) 0.09 k/uL (0); Metamyelocytes % 2 %; Myelocytes # (M) 0.09 k/uL (0); Myelocytes % 2 %; Neutrophils % (M) 28 %; Nucleated Red Blood Cells 0 /100 WBC (0-0); Total Cells Counted 200
[2020-07-31 17:50] LABS: Glucose,Whole Blood 139 mg/dL (75-99)
--- NOTE | 2020-07-31 18:20 | XR ---
EXAMINATION TYPE: XR chest 1V DATE OF EXAM: 07/31/2020 COMPARISON: 07/28/2020 HISTORY: Short of breath TECHNIQUE: FINDINGS: There is coarsening of interstitial markings. There is mild pulmonary congestion. There is no pleural effusion. There are chest leads. IMPRESSION: Mild congestion without overt heart failure. No pulmonary consolidation. No change compar ed to last exam.
[2020-07-31 20:49] LABS: Glucose,Whole Blood 173 mg/dL (75-99)
[2020-08-01] MEDS: INSULIN ASPART (NovoLOG) 100 UNIT/ML VIAL SQ SCH ×4 (06:21→21:13)
[2020-08-01 06:22] LABS: Glucose,Whole Blood 123 mg/dL (75-99)
[2020-08-01] MEDS: PANTOPRAZOLE 40 MG TABLET PO SCH ×2 (06:22→16:45)
[2020-08-01 08:35] VITALS: RESP 16
[2020-08-01] MEDS: CLOPIDOGREL 75 MG TAB PO SCH (08:39)
[2020-08-01] MEDS: CYANOCOBALAMIN 500 MCG TAB PO SCH (08:39)
[2020-08-01] MEDS: methylPREDNISolone SOD SUCCI 125 MG/2 ML VIAL IV SCH (08:39)
[2020-08-01] MEDS: SYMBICORT 160-4.5 MCG INHALER INHALATION SCH ×2 (09:12→20:24)
[2020-08-01] MEDS: DIGOXIN 125 MCG TAB PO SCH (11:09)
[2020-08-01] MEDS: ASPIRIN 81 MG PO SCH (11:09)
[2020-08-01] MEDS: APIXABAN 2.5 MG TABLET PO SCH ×2 (11:09→23:29)
[2020-08-01] MEDS: ATORVASTATIN 20 MG TAB PO SCH (11:09)
[2020-08-01] MEDS: METOPROLOL SUCCINATE (ER) 25 MG TAB.ER.24H PO SCH (11:09)
[2020-08-01 11:52] LABS: Glucose,Whole Blood 162 mg/dL (75-99)
[2020-08-01 11:55] LABS: HGB 15.6 gm/dL (13.0-17.5); MCH 28.7 pg (25.0-35.0); MCHC 31.3 g/dL (31.0-37.0); MCV 91.7 fL (80.0-100.0); Mean Platelet Volume 7.1; Platelet Count 266 k/uL (150-450); RBC 5.45 m/uL (4.30-5.90); RDW 15.1 % (11.5-15.5); WBC 5.6 k/uL (3.8-10.6)
[2020-08-01] MEDS: predniSONE 20 MG TAB PO SCH (12:07)
[2020-08-01 13:23] VITALS: BMI 32.8
[2020-08-01 14:20] LABS: Band Neutrophils % 7 %; Lymphocytes # (M) 1.18 k/uL (1.0-4.8); Metamyelocytes # (M) 0.11 k/uL (0); Metamyelocytes % 2 %; Monocytes # (M) 1.01 k/uL (0-1.0); Myelocytes # (M) 0.28 k/uL (0); Myelocytes % 5 %; Neutrophils % (M) 48 %; Nucleated Red Blood Cells 0 /100 WBC (0-0); Total Cells Counted 200
--- NOTE | 2020-08-01 15:54 | P.PN ---
Subjective Progress Note Date: 08/01/20 Principal diagnosis: Generalized weakness, dyspnea, isolated neutropenia In follow-up today patient feels that he is getting some of his strength back. He denies any fevers, nausea, he is tolerating oral intake, no cough, abdominal pain, diarrhea, he is ambulating with a walker, he states he's been up and down the hallway. Objective - Vital Signs Vital signs: Vital Signs Temp 98.8 F 08/01/20 07:58 Pulse 74 08/01/20 07:58 Resp 16 08/01/20 07:58 BP 131/79 08/01/20 07:58 Pulse Ox 93 L 08/01/20 07:58 Intake & Output 07/31/20 08/01/20 08/01/20 18:59 06:59 18:59 Intake Total 1020 300 Output Total 400 600 400 Balance 620 -600 -100 Weight 86.7 kg 86.7 kg Intake: Oral 1020 300 Output: Urine 400 600 400 Other: Voiding Method Urinal Urinal Urinal # Voids 4 1 # Bowel Movements 1 - Constitutional General appearance: Present: average body habitus, cooperative, no acute distress - EENT Eyes: Present: anicteric sclerae, EOMI, poor dentition ENT: Present: hearing grossly normal, normal oropharynx - Respiratory Respiratory: bilateral: CTA - Cardiovascular Heart sounds: normal: S1, S2 - Peripheral edema leg Peripheral Edema: bilateral: None - Gastrointestinal General gastrointestinal: Present: normal bowel sounds, soft - Neurologic Neurologic: Present: CNII-XII intact - Musculoskeletal Musculoskeletal: Present: generalized weakness, strength equal bilaterally - Psychiatric Psychiatric: Present: A&O x's 3, appropriate affect, intact judgment & insight - Labs CBC & Chem 7: 08/01/20 10:54 07/30/20 07:30 Labs: Abnormal Lab Results - Last 24 Hours (Table) 07/31/20 07/31/20 08/01/20 Range/Units 17:45 20:34 06:04 Monocytes # (Manual) (0-1.0) k/uL Metamyelocytes # (Man) (0) k/uL Myelocytes # (Manual) (0) k/uL POC Glucose (mg/dL) 139 H 173 H 123 H (75-99) mg/dL 08/01/20 08/01/20 Range/Units 10:54 11:51 Monocytes # (Manual) 1.01 H (0-1.0) k/uL Metamyelocytes # (Man) 0.11 H (0) k/uL Myelocytes # (Manual) 0.28 H (0) k/uL POC Glucose (mg/dL) 162 H (75-99) mg/dL Microbiology - Last 24 Hours (Table) 07/26/20 15:13 Blood Culture - Preliminary Blood No Growth after 120 hours Assessment and Plan (1) SOB (shortness of breath) Narrative/Plan: Patient admitted for the same. He is being followed by Internal Medicine, Cardiology and Pulmonary Current Visit: Yes Status: Acute Priority: High Code(s): R06.02 - SHORTNESS OF BREATH SNOMED Code(s): 888165822 (2) Neutropenia Narrative/Plan: Differential diagnosis includes myelodysplastic syndrome, myelodysplasia, or underlying viral infection is a possibility. Workup for Neutropenia and Viruses has been ordered. So far nothing suggestive of a specific diagnosis. Patient was started on Solu-Medrol 60 mg IV push every 8 hours about 72 hours ago, patient's ANC was noted to slowly increase, it is normal today. IV Solu- Medrol changed to by mouth prednisone. We will see patient's counts in the a.m. and plan for discharge. It was discussed with the patient that he will need to taper off the steroids. We will see how his counts do. If they fall again, patient will need a bone marrow biopsy. This will be done in the outpatient setting. Patient's prednisone taper has been sent to [facility] pharmacy in [place] per his request PPI prescribed during prednisone therapy. Patient can discontinue once taper complete. Current Visit: Yes Status: Acute Priority: High Code(s): D70.9 - NEUTROPENIA, UNSPECIFIED SNOMED Code(s): 198881310
[2020-08-01 16:42] LABS: Glucose,Whole Blood 192 mg/dL (75-99)
--- NOTE | 2020-08-01 20:00 | P.PN ---
Subjective This is a pleasant 79 years old male with past medical history of coronary artery disease, hypertension, hyperlipidemia, COPD and follow-up with Dr. Patrick. Patient recently had 3 vessel coronary artery disease per cardiac cath with Dr. Monson however patient refused for surgery. He was in the hospital 06/05-06/09 for dyspnea which was multifactorial secondary to his coronary artery disease, mild COPD and chronic atrial fibrillation. Possible COPD and generalized weakness however when asked the patient he said his breathing is at baseline with no difficulty breathing, he has cough on and off at times but not bothering him currently and no chest pain. He says he came to the hospital because he feels generally weak for 3-4 days. Also his been having diarrhea about a week ago which is a stopped and his last bowel movement was 2 days ago w hich was normal. He denies chest pain or abdominal pain or nausea vomiting. No fever. As per documentation from ED his creatinine level was elevated 2.1 at [facility]. And his blood pressure was on the low side. Currently his creatinine is 1.3 which is close to his baseline. Blood pressure 108/56. Is saturating 95% on 3 L oxygen via nasal cannula. His PCP is Dr. Samano and his certified residential medication aide is Dr. Austin. He is not on home oxygen or steroids On admission vitals are stable. WBC is 3.1K, no neutrophils at 0.4. Creatinine is 1.3 which is close to baseline of 1.2-1.5. Rest of BMP, liver enzymes and UA were unremarkable. Troponin is negative was then 0.017.He has negative d-dimer 0.31 Chest x-ray: COPD with basilar atelectasis rather than pneumonia vague right upper lobe density" short-term CT of the chest follow-up VQ scan is low probability for PE In the emergency room and was started on normal saline at 100 mm per hour, prednisone 40 mg, ceftriaxone and Zithromax. 07/28/2020 Patient still feels generally weak, he still dyspneic especially with exertion, with little cough. No chest pain. No diarrhea and no abdominal pain. He is tolerating diet well. Patient is afebrile and vitals are stable. Left showing WBC of 3.7K, however neutrophil count went down to 0.04. TSH is normal at 1.9, pro-BNP is slightly elevated at 2180. Pro-calcitonin is slightly elevated at 0.15. B12 is still pending. Digoxin level is at reference range of 0.5. Coronal Vitas is still pending. 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 Physical therapy evaluation is pending 07/29/2020 Patient still feels generally he still have leukopenia today with WBC 12.8 K, neutrophil still low at 0.11. weak with little lightheadedness. He is not dyspneic, he is eating well, no diarrhea. Vitals are stable. His leukopenia is worse today at 2.7K, still have neutropenia at 0.11 K. BMP is unremarkable. Hematology consult is appreciated for his blood disorder. Covid test is negative as well as CMV IgM antibodies. We'll keep monitoring. Patient remains on Zithromax and Rocephin, his on normal saline at 50 mL per hour, he is on Eliquis 2.5 mg, he is on digoxin 125 g and metoprolol lower to 25 mg daily 07/30/2020 Patient feels little better today is weakness is improving and his dyspnea is improving. He is on room air. He had tried to gout attack yesterday and received 1 dose of colchicine an [place] and he feels better today and the pain is minimal today. Hematology input is appreciated patient has neutropenia, start him on steroids and if no improvement they recommended bone marrow biopsy. Vitamin B12 was low at 170 and his been replaced. No injection is given because patient refused and because of risk of hematoma as he is on Eliquis. Patient instructed to check his level with his doctor within 1-2 months of vitamin B12 and he agrees. Risks including but not limited to pancytopenia and neurological deficits which could be permanent (or dementia are explained for the patient and he verbalized that understanding and acceptance. His WBC is down to 1.7K today however his interval improvement to 0.30. BMP is unremarkable and creatinine is normal at 0.9. IV fluid was a stopped. Keep monitoring creatinine. 07/31/2020 Patient states that his dyspnea is somewhat better, as well as his weakness is a slightly improved. No respiratory symptoms and he saturating 94% on room air. WBC is back to normal today at 4.3. Sugar controlled. We'll check his neutrophil tomorrow Vitamin B12 is been replaced. Pro-calcitonin is normal. We will check chest x- ray Manager Account Management team on the case 08/01/2020 Patient is awake and alert, his weakness is slightly better, no dyspnea or cough or chest pain. His pneumonia has resolved as shown on clear chest x-ray 2 [place] patient has no fever. Patient finished his course of antibiotics and it was discontinued. His white cell count and neutrophils are improving, and they are back to normal. Hematology team switch him to oral prednisone Check WBC/neutrophil tomorrow and if normal and patient keep improving then possible discharge in 24-48 hours Objective - Vital Signs Vital signs: Vital Signs Temp 98 F 08/01/20 15:40 Pulse 75 08/01/20 15:40 Resp 16 08/01/20 15:40 BP 127/79 08/01/20 15:40 Pulse Ox 95 08/01/20 15:40 Intake & Output 08/01/20 08/01/20 08/02/20 06:59 18:59 06:59 Intake Total 1800 Output Total 600 1000 Balance -600 800 Weight 86.7 kg 86.7 kg Intake: IV 20 Invasive Line 3 20 Oral 1780 Output: Urine 600 1000 Other: Voiding Method Urinal Urinal # Voids 1 # Bowel Movements 1 - Exam GENERAL: The patient is alert and oriented x3, not in any acute distress. Well developed, well nourished. HEENT: Pupils are round and equally reacting to light. EOMI. No scleral icterus. No conjunctival pallor. Normocephalic, atraumatic. No pharyngeal erythema. No thyromegaly. CARDIOVASCULAR: S1 and S2 present. No murmurs, rubs, or gallops. PULMONARY: Chest is clear to auscultation, no wheezing or crackles. ABDOMEN: Soft, nontender, nondistended, normoactive bowel sounds. No palpable organomegaly. MUSCULOSKELETAL: No joint swelling or deformity. EXTREMITIES: No cyanosis, clubbing, or pedal edema. NEUROLOGICAL: Gross neurological examination did not reveal any focal deficits. SKIN: No rashes. No petechiae - Labs CBC & Chem 7: 08/01/20 10:54 07/30/20 07:30 Labs: Abnormal Lab Results - Last 24 Hours (Table) 07/31/20 08/01/20 08/01/20 Range/Units 20:34 06:04 10:54 Monocytes # (Manual) 1.01 H (0-1.0) k/uL Metamyelocytes # (Man) 0.11 H (0) k/uL Myelocytes # (Manual) 0.28 H (0) k/uL POC Glucose (mg/dL) 173 H 123 H (75-99) mg/dL 08/01/20 08/01/20 Range/Units 11:51 16:40 Monocytes # (Manual) (0-1.0) k/uL Metamyelocytes # (Man) (0) k/uL Myelocytes # (Manual) (0) k/uL POC Glucose (mg/dL) 162 H 192 H (75-99) mg/dL Microbiology - Last 24 Hours (Table) 07/26/20 15:13 Blood Culture - Final Blood No Growth after 144 hours Assessment and Plan Assessment: -Generalized weakness, with recent history of diarrhea for possible gastroenteritis. Possibly viral infection in view of his neutropenia -neutropenia, and consult hematology workup is undergoing -Vague right upper lobe density, possible pneumonia. Repeat chest x-ray showing improvement. -Chronic mild dyspnea, mostly related to Coronary artery disease, recent cardiac cath showing total occlusion of the RCA with severe disease of LAD and circumflex, patient refused heart surgery before. Also secondary to mild COPD and chronic atrial fibrillation. -Neutropenia, possibly secondary to viral infection. Follow-up level -possible acute kidney injury, improved -Hypertension -Hyperlipidemia -Recently diagnosed with atrial fibrillation and started on anticoagulation -Peripheral artery disease with bilateral occluded SFA and bilateral popliteal arteries -COPD, not in acute exacerbation DVT prophylaxis: Eliquis Plan: This is a pleasant 79 years old male who presents with acute dyspnea. Continue with breathing treatment. Pulmonary and cardiology consult.Check proBNP. Check digoxin level . I will stop his prednisone because worsens his weakness, unless its restarted by pulmonary team. We will lower his normal saline to 50 mL per hour. Physical therapy evaluation . We will check TSH, B12 and folate Labs and medication were reviewed.. Continue same treatment. Continue with symptomatic treatment. Resume home medication. Monitor lytes and vitals. DVT and GI prophylaxis. Further recommendations depends on the clinical course of the patient DVT prophylaxis: Eliquis GI Prophylaxis: Pepcid Prognosis is guarded
[2020-08-01] MEDS: IPRATROPIUM-ALBUTEROL 3 ML NEB INHALATION PRN (20:24)
[2020-08-01 21:02] LABS: Glucose,Whole Blood 173 mg/dL (75-99)
[2020-08-02 06:37] LABS: Glucose,Whole Blood 117 mg/dL (75-99)
[2020-08-02] MEDS: INSULIN ASPART (NovoLOG) 100 UNIT/ML VIAL SQ SCH ×2 (07:02→12:21)
[2020-08-02] MEDS: PANTOPRAZOLE 40 MG TABLET PO SCH (07:03)
[2020-08-02] MEDS: predniSONE 20 MG TAB PO SCH (08:23)
[2020-08-02] MEDS: CLOPIDOGREL 75 MG TAB PO SCH (08:23)
[2020-08-02] MEDS: CYANOCOBALAMIN 500 MCG TAB PO SCH (08:23)
[2020-08-02] MEDS: SYMBICORT 160-4.5 MCG INHALER INHALATION SCH (09:03)
[2020-08-02] MEDS: IPRATROPIUM-ALBUTEROL 3 ML NEB INHALATION PRN (09:04)
[2020-08-02 10:18] LABS: HCT 47.4 % (39.0-53.0); HGB 15.1 gm/dL (13.0-17.5); MCH 29.3 pg (25.0-35.0); MCHC 31.9 g/dL (31.0-37.0); MCV 91.7 fL (80.0-100.0); Mean Platelet Volume 7.2; Platelet Count 257 k/uL (150-450); RBC 5.17 m/uL (4.30-5.90); RDW 15.1 % (11.5-15.5); WBC 9.9 k/uL (3.8-10.6)
[2020-08-02 10:47] LABS: Band Neutrophils % 10 %; Lymphocytes # (M) 1.68 k/uL (1.0-4.8); Metamyelocytes # (M) 0.69 k/uL (0); Metamyelocytes % 7 %; Monocytes # (M) 0.79 k/uL (0-1.0); Myelocytes % 1 %; Neutrophils % (M) 57 %; Nucleated Red Blood Cells 0 /100 WBC (0-0); Total Cells Counted 100
[2020-08-02 11:14] VITALS: BP 119/70; PULSE 76; TEMP 98.6
[2020-08-02] MEDS: APIXABAN 2.5 MG TABLET PO SCH (11:37)
[2020-08-02] MEDS: DIGOXIN 125 MCG TAB PO SCH (11:37)
[2020-08-02] MEDS: METOPROLOL SUCCINATE (ER) 25 MG TAB.ER.24H PO SCH (11:37)
[2020-08-02] MEDS: ATORVASTATIN 20 MG TAB PO SCH (11:37)
[2020-08-02] MEDS: ASPIRIN 81 MG PO SCH (11:37)
[2020-08-02 12:08] LABS: Glucose,Whole Blood 128 mg/dL (75-99)
--- NOTE | 2020-08-02 14:28 | P.PN ---
Subjective Progress Note Date: 08/02/20 Principal diagnosis: Generalized weakness, dyspnea, isolated neutropenia In follow-up today patient doing well, looking forward to going home today, 10 point review of systems is negative. He is tolerating the oral steroids. His counts at this time are stable, absolute neutrophil count is 6.6. Objective - Vital Signs Vital signs: Vital Signs Temp 98.6 F 08/02/20 11:05 Pulse 76 08/02/20 11:05 Resp 16 08/02/20 11:05 BP 119/70 08/02/20 11:05 Pulse Ox 93 L 08/02/20 11:05 Intake & Output 08/01/20 08/02/20 08/02/20 18:59 06:59 18:59 Intake Total 1800 738 Output Total 1000 300 Balance 800 438 Weight 86.7 kg 85.5 kg Intake: IV 20 20 Invasive Line 3 20 20 Oral 1780 718 Output: Urine 1000 300 Other: Voiding Method Urinal Urinal Urinal # Voids 1 2 # Bowel Movements 1 1 - Constitutional General appearance: Present: cooperative, no acute distress, obese - EENT Eyes: Present: anicteric sclerae, EOMI, poor dentition ENT: Present: hearing grossly normal - Respiratory Details: respirations are even and unlabored - Neurologic Neurologic: Present: CNII-XII intact - Musculoskeletal Musculoskeletal: Present: generalized weakness - Psychiatric Psychiatric: Present: A&O x's 3, appropriate affect, intact judgment & insight - Labs CBC & Chem 7: 08/02/20 09:09 07/30/20 07:30 Labs: Abnormal Lab Results - Last 24 Hours (Table) 08/01/20 08/01/20 08/01/20 Range/Units 10:54 16:40 21:01 Monocytes # (Manual) 1.01 H (0-1.0) k/uL Metamyelocytes # (Man) 0.11 H (0) k/uL Myelocytes # (Manual) 0.28 H (0) k/uL POC Glucose (mg/dL) 192 H 173 H (75-99) mg/dL 08/02/20 08/02/20 08/02/20 Range/Units 06:36 09:09 12:06 Monocytes # (Manual) (0-1.0) k/uL Metamyelocytes # (Man) 0.69 H (0) k/uL Myelocytes # (Manual) 0.10 H (0) k/uL POC Glucose (mg/dL) 117 H 128 H (75-99) mg/dL Microbiology - Last 24 Hours (Table) 07/26/20 15:13 Blood Culture - Final Blood No Growth after 144 hours Assessment and Plan (1) SOB (shortness of breath) Status: Acute Priority: High Code(s): R06.02 - SHORTNESS OF BREATH SNOMED Code(s): 217325669 (2) Neutropenia Narrative/Plan: Differential diagnosis includes myelodysplastic syndrome, myelodysplasia, or underlying viral infectio. Workup for Neutropenia and Viruses ordered, small elevation in a H chain, no monoclonal paraproteinemia. No specific deficiencies noted. None of the viral panels have come back positive for acute infection. Patient was started on Solu-Medrol 60 mg IV push every 8 hours for 3 days, ANC increased. IV route was changed oral yesterday. Patient's ANC is 6.6 today with a normal white blood cell count. Reviewed steroid taper again with patient. Prescription in for steroids as well as PPI for during taper has been sent to patient's pharmacy. If they fall again, patient will need a bone marrow biopsy. Labs and follow-up appointment w ill be scheduled for about 2 weeks. Patient's prednisone taper sent to [facility] pharmacy in [place] per his request PPI prescribed during prednisone therapy. Patient can discontinue once taper complete. Status: Acute Priority: High Code(s): D70.9 - NEUTROPENIA, UNSPECIFIED SNOMED Code(s): 947538646
--- NOTE | 2020-08-02 22:47 | P.DS ---
Providers Date of admission: 07/26/20 16:58 Attending physician: Nathanael Kendrick Consults: 07/27/20 10:11 Consult Physician Routine Consulting Provider: Phil Chapa Consult Reason/Comments: hypotension Do you want consulting provider notified?: Yes Consult Physician Routine Consulting Provider: Gladys Patrick Consult Reason/Comments: COPD, pna Do you want consulting provider notified?: Yes 07/28/20 09:18 Consult Physician Urgent Consulting Provider: Tam Craig Consult Reason/Comments: neutropenia Do you want consulting provider notified?: Yes Primary care physician: Joanne Saamno [facility] Course: Diagnoses: -Generalized weakness, with recent history of diarrhea for possible gastroenteritis. Possibly viral infection in view of his neutropenia -neutropenia and leukopenia, improved to normal upon discharge. Follow up with cvir tech as an outpatient -Vague right upper lobe density, possible pneumonia. Repeat chest x-ray showing improvement. he already Finished his course of antibiotics. -Chronic mild dyspnea, mostly related to Coronary artery disease, recent cardiac cath showing total occlusion of the RCA with severe disease of LAD and circumflex, patient refused heart surgery before. Also secondary to mild COPD and chronic atrial fibrillation. -Vitamin B12, replaced with oral pills. Patient refused injection, he is also on Eliquis. Instructed to follow up with repeat Vit.B12 level in 1-2 months with his PCP and he agrees -Right great toe gouty attack. Improved with treatment -possible acute kidney injury, improved -Hypertension -Hyperlipidemia -Recently diagnosed with atrial fibrillation and started on anticoagulation -Peripheral artery disease with bilateral occluded SFA and bilateral popliteal arteries -COPD, not in acute exacerbation Hospital course: This is a pleasant 79 years old male with past medical history of coronary artery disease, hypertension, hyperlipidemia, COPD and follow-up with Dr. Patrick. Patient recently had 3 vessel coronary artery disease per cardiac cath with Dr. Monson however patient refused for surgery. He was in the hospital 06/05-06/09 for dyspnea which was multifactorial secondary to his coronary artery disease, mild COPD and chronic atrial fibrillation. Presents with generalized weakness, and gastroenteritis and fall at home. He was found to have pneumonia improved with antibiotics and he was on room air are to discharge. No respiratory symptoms on or resolved. His hospital course also complicated by neutropenia/leukopenia, treated with steroids by cvir tech team, low vitamin B12 start replacement with oral pills, his low white cell count improved to normal upon discharge. Patient was instructed to check his vitamin B12 level in 1-2 months with his doctor and he agrees. Patient symptoms improved, his chest x-ray was negative prior to discharge. His antibiotics were discontinued. Patient was cleared for discharge by all consults including unit coordinator, coin machine assembler and cvir tech Problems and management plan were discussed with the patient and he verbalized understanding and acceptance Patient was found stable and can be discharged home however he needs follow-up as an outpatient. Patient was instructed to follow up with PCP Dr. Samano within one week and patient agrees. Also patient was instructed to follow up with Dr. Craig cvir tech and Dr. with Dr. Patrick coin machine assembler in 2 weeks and he agrees with Dr. Patrick appointments on 08/18, Dr. Samano appointment in 08/04 and he will call Dr. Craig office for follow-up appointment as he states Gen: patient is a AAOx3, no distress CVS: S1-S2, RRR, no murmur Lungs: B/L CTA, no wheezing Abdomen: soft, no distention, no tenderness, positive bowel sounds Extremity: no leg edema or induration Time spent more than 35 minutes Patient Condition at Discharge: Stable Plan - Discharge Summary Discharge Rx Participant: No New Discharge Prescriptions: New predniSONE [Deltasone] 20 mg PO DAILY #33 tab Pantoprazole Sodium [Protonix] 40 mg PO DAILY #35 tablet. Metoprolol Succinate (ER) [Toprol XL] 25 mg PO DAILY@1300 #30 tab.er.24h Acetaminophen Tab [Tylenol] 650 mg PO Q4HR PRN tab PRN Reason: Fever And/ Or Pain Cyanocobalamin [Vitamin B-12] 1,000 mcg PO DAILY #30 tab Continue Digoxin [Lanoxin] 125 mcg PO DAILY@1300 cilostazoL [Pletal] 50 mg PO DAILY@1300 Budesonide/Formoterol Fumarate [Symbicort 160-4.5 Mcg Inhaler] 2 puff INHALATION RT-BID@0100,1300 Atorvastatin [Lipitor] 20 mg PO DAILY@1300 Vitamin B Complex 1 cap PO DAILY@1300 Apixaban [Eliquis] 2.5 mg PO BID@0100,1300 Aspirin 81 mg PO DAILY@1300 Clopidogrel [Plavix] 75 mg PO DAILY #30 tab Vitamin D (Unknown Strength) 1 tab PO DAILY Discontinued Metoprolol Succinate [Toprol XL] 50 mg PO DAILY@1300 Fexofenadine HCl [Hanh Allergy] 180 mg PO DAILY PRN PRN Reason: seasonal allergies Furosemide [Lasix] 20 mg PO DAILY@1300 Spironolactone [Aldactone] 25 mg PO DAILY #30 tab lisinopriL [Zestril] 2.5 mg PO DAILY #30 tab Naproxen Sodium [Aleve] 220 mg PO DAILY PRN PRN Reason: Pain Discharge Medication List Atorvastatin [Lipitor] 20 mg PO DAILY@1300 10/17/18 [History] Budesonide/Formoterol Fumarate [Symbicort 160-4.5 Mcg Inhaler] 2 puff INHALATION RT-BID@0100,1300 10/17/18 [History] Digoxin [Lanoxin] 125 mcg PO DAILY@1300 10/17/18 [History] cilostazoL [Pletal] 50 mg PO DAILY@1300 10/17/18 [History] Vitamin B Complex 1 cap PO DAILY@1300 05/02/20 [History] Apixaban [Eliquis] 2.5 mg PO BID@0100,1300 06/05/20 [History] Aspirin 81 mg PO DAILY@1300 06/05/20 [History] Clopidogrel [Plavix] 75 mg PO DAILY #30 tab 06/09/20 [Rx] Vitamin D (Unknown Strength) 1 tab PO DAILY 07/26/20 [History] Pantoprazole Sodium [Protonix] 40 mg PO DAILY #35 tablet. 08/01/20 [Rx] predniSONE [Deltasone] 20 mg PO DAILY #33 tab 08/01/20 [Rx] Acetaminophen Tab [Tylenol] 650 mg PO Q4HR PRN tab 08/02/20 [Rx] Cyanocobalamin [Vitamin B-12] 1,000 mcg PO DAILY #30 tab 08/02/20 [Rx] Metoprolol Succinate (ER) [Toprol XL] 25 mg PO DAILY@1300 #30 tab.er.24h 08/02/20 [Rx] Follow up Appointment(s)/Referral(s): Tam Craig MD [STAFF PHYSICIAN] - 10 Days (Junior Buyer The office will call you with appointment date and time.) Joanne Samano DO [Primary Care Provider] - 08/04/20 2:00 pm () Ramon Holly MD [STAFF PHYSICIAN] - 2 Weeks (Opto Mechanical Engineer) Gladys Patrick MD [STAFF PHYSICIAN] - 08/18/20 9:30 am (Travel Registered Nurse Pacu) Patient Instructions/Handouts: Pneumonitis (DC), Neutropenia (ED) Activity/Diet/Wound Care/Special Instructions: Heart healthy diet Activity is limited till you see your doctor Discharge Disposition: HOME WITH HOME HEALTH SERVICES
[2020-08-04 10:52] LABS: Parvovirus B-19 IgM Antibodies 0.24 INDEX (<=0.90)
--- NOTE | 2020-08-05 21:29 | CDI ---
Documentation Clarification Form Date: 08/06/2020 From: Aleksandr Chapa Phone: If you have a question about this query, please contact Mary Christian, Child And Family Services Specialist at [phone] between 8am and 5pm. Admit Date: 07/26/2020 Discharge Date: 08/02/2020 Patient Name: Balwinder Lucero Visit Number: [id number] ATTENTION: The Clinical Documentation Specialists (CDI) and [facility] Coding Staff appreciate your assistance in clarifying documentation. Please respond to the clarification below the line at the bottom and electronically sign. The CDI & [facility] Coding staff will review the response and follow-up if needed. Please note: Queries are made part of the Legal Health Record. If you have any questions, please contact the author of this message via ITS. Dear Avtar Blackmon MD., The patients principal diagnosis has not been clearly identified and requires clarification. Presents with generalized weakness, and gastroenteritis and fall at home.He was found to have pneumonia improved with antibiotics and he was on room air are to discharge. History/Risk factors: COPD, CKD stage 3, HTN Lab findings:Vague density right upper lobe may represent superimposed structures.Short-term follow-up CT of the chest could be obtained for confirmation. Treatment:Antibiotics, Iv fluids Generalized weakness, with recent history of diarrhea for possible gastroenteritis.Possibly viral infection in view of his neutropenia. Vague right upper lobe density, possible pneumonia.Repeat chest x-ray showing improvement. he already Finished his course of antibiotics. In your professional opinion, can you please clarify which diagnosis, after study, accounted for the patients presenting symptoms and was the reason chiefly responsible for the admission? Gastroenteritis related to viral infection Gastroenteritis not related to viral infection Viral infection, Unspecified Other, Please Specifiy Gastroenteritis related to viral infection Viral infection, Unspecified MTDD
== END 2020-08-02 13:34 | disposition home health service (06) | DRG 865 ==
LOC: EC 14:24 → 3SCARD 16:58
PROVIDERS: ADMIT Hospitalist; ATTEND Hospitalist
DX: B34.9 Viral infection, unspecified (principal); N17.0 Acute kidney failure with tubular necrosis; J96.01 Acute respiratory failure with hypoxia; J18.9 Pneumonia, unspecified organism; E87.2 Acidosis; I42.9 Cardiomyopathy, unspecified; I48.11 Longstanding persistent atrial fibrillation; I13.0 Hypertensive heart and chronic kidney disease with heart failure and stage 1 through stage 4 chronic kidney disease, or unspecified chronic kidney disease; J44.1 Chronic obstructive pulmonary disease with (acute) exacerbation; J44.0 Chronic obstructive pulmonary disease with (acute) lower respiratory infection; J98.11 Atelectasis; I25.10 Atherosclerotic heart disease of native coronary artery without angina pectoris; E78.5 Hyperlipidemia, unspecified; A08.4 Viral intestinal infection, unspecified; E86.0 Dehydration; N18.3 Chronic kidney disease, stage 3 (moderate); I50.9 Heart failure, unspecified; I25.82 Chronic total occlusion of coronary artery; D70.9 Neutropenia, unspecified; Z20.828 Contact with and (suspected) exposure to other viral communicable diseases; K21.9 Gastro-esophageal reflux disease without esophagitis; M10.9 Gout, unspecified; M19.90 Unspecified osteoarthritis, unspecified site; H91.90 Unspecified hearing loss, unspecified ear; Z79.82 Long term (current) use of aspirin; Z79.51 Long term (current) use of inhaled steroids; Z79.02 Long term (current) use of antithrombotics/antiplatelets; Z79.01 Long term (current) use of anticoagulants; Z79.899 Other long term (current) drug therapy; Z91.041 Radiographic dye allergy status; Z86.010 Personal history of colon polyps; Z90.49 Acquired absence of other specified parts of digestive tract; Z95.5 Presence of coronary angioplasty implant and graft; Z98.890 Other specified postprocedural states; Z87.891 Personal history of nicotine dependence; Z91.81 History of falling
CPT/HCPCS: 36415; 71045; 71046; 78582; 80048; 80053; 80162; 81003; 82607; 82728; 82746; 82747; 83540; 83550; 83605; 83880; 83883; 83921; 84145; 84165; 84443; 84484; 84550; 85025; 85379; 86038; 86140; 86334; 86431; 86645; 86747; 87040; 94640; 94760; 96365; 99285

== ENCOUNTER 2021-10-20 13:49 | Emergency (ER) | payer MEDICARE, BC ==
[2021-10-20 17:34] VITALS: BP 124/80; PULSE 76; RESP 20; TEMP 99
[2021-10-20] MEDS ORDERED: SODIUM CHLORIDE 0.9% 50 ML IVPB ONE (21:00)
[2021-10-20] MEDS ORDERED: BAMLANIVIMAB (EUA) 700 MG, ETESEVIMAB (EUA) 1,400 MG in SODIUM CHLORIDE 0.9% 50 ML IVPB ONE (21:15)
--- NOTE | 2021-10-20 21:36 | ED ---
General Adult HPI - General Chief complaint: Upper Respiratory Infection Stated complaint: Exposed to COVID, wants COVID Test Time Seen by Provider: 10/20/21 20:12 Source: patient, RN notes reviewed Mode of arrival: ambulatory Limitations: no limitations - History of Present Illness Initial comments: 80-year-old male with a past medical history of atrial flutter, CAD, heart failure, COPD, hyperlipidemia, hypertension presents to the emergency room for a chief complaint of wanting a COVID-19 test. Patient states his and daughter who live with him have COVID-19. He was told by his gericare aide teacher that since he has COPD he should come to the ER to get checked for COVID-19 antilipid antibodies if he has positive. He has not developed any symptoms but is maybe a little bit more tired today than normal. No fevers or shortness of breath. Patient states the oxygen around 90% is normal for him.patient is not vaccinated. Patient has no other complaints at this time including shortness of breath, chest pain, abdominal pain, nausea or vomiting, headache, or visual changes. - Related Data Home Medications Medication Instructions Recorded Confirmed Atorvastatin [Lipitor] 20 mg PO DAILY@1300 10/17/18 07/26/20 Budesonide/Formoterol Fumarate 2 puff INHALATION RT-BID@0100,1300 10/17/18 07/26/20 [Symbicort 160-4.5 Mcg Inhaler] Digoxin [Lanoxin] 125 mcg PO DAILY@1300 10/17/18 07/26/20 cilostazoL [Pletal] 50 mg PO DAILY@1300 10/17/18 07/26/20 Vitamin B Complex 1 cap PO DAILY@1300 05/02/20 07/26/20 Apixaban [Eliquis] 2.5 mg PO BID@0100,1300 06/05/20 07/26/20 Aspirin 81 mg PO DAILY@1300 06/05/20 07/26/20 Vitamin D (Unknown Strength) 1 tab PO DAILY 07/26/20 07/26/20 Previous Rx's Medication Instructions Recorded Clopidogrel [Plavix] 75 mg PO DAILY #30 tab 06/09/20 Pantoprazole Sodium [Protonix] 40 mg PO DAILY #35 tablet. 08/01/20 predniSONE [Deltasone] 20 mg PO DAILY #33 tab 08/01/20 Acetaminophen Tab [Tylenol] 650 mg PO Q4HR PRN tab 08/02/20 Cyanocobalamin [Vitamin B-12] 1,000 mcg PO DAILY #30 tab 08/02/20 Metoprolol Succinate (ER) [Toprol 25 mg PO DAILY@1300 #30 tab.er.24h 08/02/20 XL] Allergies Allergy/AdvReac Type Severity Reaction Status Date / Time Iodinated Contrast Media AdvReac Diarrhea, Verified 10/20/21 17:34 [Iodinated Contrast- Oral RASH and IV Dye] Review of Systems ROS Statement: Those systems with pertinent positive or pertinent negative responses have been documented in the HPI. ROS Other: All systems not noted in ROS Statement are negative. Past Medical History Past Medical History: Atrial Flutter, Coronary Artery Disease (CAD), Heart Failure, COPD, GERD/Reflux, Hearing Disorder / Deafness, Hyperlipidemia, Hypertension, Osteoarthritis (OA), Renal Disease, Vascular Disorder Additional Past Medical History / Comment(s): hx. gout, hx. colon polyps, circulation problems in legs, slight decreased kidney function, shingles History of Any Multi-Drug Resistant Organisms: None Reported Past Surgical History: Cholecystectomy, Heart Catheterization, Heart Catheterization With Stent Additional Past Surgical History / Comment(s): right bone graft to collar bone Past Anesthesia/Blood Transfusion Reactions: No Reported Reaction Date of Last Stent Placement:: 05/2020 Past Psychological History: No Psychological Hx Reported Smoking Status: Former smoker Past Alcohol Use History: None Reported Past Drug Use History: None Reported - Past Family History Mother Family Medical History: No Reported History General Exam Limitations: no limitations General appearance: alert, in no apparent distress Head exam: Present: atraumatic Eye exam: Present: normal appearance, PERRL, EOMI. Absent: scleral icterus, conjunctival injection ENT exam: Present: normal exam, mucous membranes moist Neck exam: Present: normal inspection, full ROM. Absent: tenderness Respiratory exam: Present: normal lung sounds bilaterally. Absent: respiratory distress, wheezes Cardiovascular Exam: Present: regular rate, normal rhythm, normal heart sounds GI/Abdominal exam: Present: soft, normal bowel sounds. Absent: distended, tenderness Course Vital Signs 10/20/21 17:32 Temperature 99.0 F Pulse Rate 76 Respiratory 20 Rate Blood Pressure 124/80 O2 Sat by Pulse 92 L Oximetry Medical Decision Making - Medical Decision Making Vitals are stable. The patient is well-appearing. He is 92% on room air which is his baseline. He does not have any shortness of breath. He does not have any COVID-19 symptoms. He did test positive. Today however. Patient was given antibody infusion and monitored for an hour afterwards. Patient discharged home to follow up with primary care. strict return parameters discussed. - Lab Data Lab Results 10/20/21 Range/Units 17:43 Coronavirus (PCR) Detected A (Not Detectd) Disposition Clinical Impression: COVID-19 Disposition: HOME SELF-CARE Condition: Good Instructions (If sedation given, give patient instructions): Coronavirus Disease 2019 (COVID-19) Additional Instructions: Please follow-up with your doctor in one to 2 days. Return to the emergency room for any worsening symptoms. Is patient prescribed a controlled substance at d/c from ED?: No Referrals: Joanne Bergman DO [Primary Care Provider] - 1-2 days Time of Disposition: 21:35
== END 2021-10-20 23:38 | disposition home or self-care (01) ==
LOC: EC 13:49
DX: U07.1 COVID-19 (principal); I11.0 Hypertensive heart disease with heart failure; I50.9 Heart failure, unspecified; I48.91 Unspecified atrial fibrillation; I25.10 Atherosclerotic heart disease of native coronary artery without angina pectoris; J44.9 Chronic obstructive pulmonary disease, unspecified; K21.9 Gastro-esophageal reflux disease without esophagitis; E78.5 Hyperlipidemia, unspecified; M19.90 Unspecified osteoarthritis, unspecified site; Z79.01 Long term (current) use of anticoagulants; Z79.82 Long term (current) use of aspirin; Z79.02 Long term (current) use of antithrombotics/antiplatelets; Z90.49 Acquired absence of other specified parts of digestive tract; Z87.891 Personal history of nicotine dependence
CPT/HCPCS: 99283; M0245; 87635

== ENCOUNTER 2022-07-19 16:22 | Emergency (ER) | payer MEDICARE, BC ==
[2022-07-19 17:13] VITALS: BP 147/84; PULSE 71; RESP 18; TEMP 98.3
[2022-07-19] MEDS ORDERED: ACET/COD 300 MG/30 MG STARTER PACK 6 TAB BTL PO STA (21:13)
--- NOTE | 2022-07-19 21:39 | XR ---
RESULT: HISTORY: pain TECHNIQUE: 2 views of the right femur. COMPARISON: None. FINDINGS: There is no acute fracture or dislocation of the right femur. The visualized joint spaces are preserv ed. IMPRESSION: No acute osseous abnormality.
--- NOTE | 2022-07-19 22:32 | ED ---
General Adult HPI - General Chief complaint: Extremity Problem,Nontraumatic Stated complaint: R leg pain Time Seen by Provider: 07/19/22 20:50 Source: patient Mode of arrival: wheelchair Limitations: no limitations - History of Present Illness Initial comments: Patient is an 81-year-old female who presents department with chief complaint of right thigh pain. Patient states he was diagnosed with muscle strain by his primary care provider almost 2 months ago. Denies history of injury. Patient takes tramadol for pain however states this is not controlling his pain adequately. States pain is worse in the morning when he first wakes up. Reports muscle spasms. Attempted muscle relaxers provider did not like the medication. Patient currently goes to physical therapy 3 times a week sinus issue. Denies reinjury, numbness, tingling. Denies calf pain. - Related Data Home Medications Medication Instructions Recorded Confirmed Atorvastatin [Lipitor] 20 mg PO DAILY@1300 10/17/18 07/26/20 Budesonide/Formoterol Fumarate 2 puff INHALATION RT-BID@0100,1300 10/17/18 07/26/20 [Symbicort 160-4.5 Mcg Inhaler] Digoxin [Lanoxin] 125 mcg PO DAILY@1300 10/17/18 07/26/20 cilostazoL [Pletal] 50 mg PO DAILY@1300 10/17/18 07/26/20 Vitamin B Complex 1 cap PO DAILY@1300 05/02/20 07/26/20 Apixaban [Eliquis] 2.5 mg PO BID@0100,1300 06/05/20 07/26/20 Aspirin 81 mg PO DAILY@1300 06/05/20 07/26/20 Vitamin D (Unknown Strength) 1 tab PO DAILY 07/26/20 07/26/20 Previous Rx's Medication Instructions Recorded Clopidogrel [Plavix] 75 mg PO DAILY #30 tab 06/09/20 Pantoprazole Sodium [Protonix] 40 mg PO DAILY #35 tablet. 08/01/20 predniSONE [Deltasone] 20 mg PO DAILY #33 tab 08/01/20 Acetaminophen Tab [Tylenol] 650 mg PO Q4HR PRN tab 08/02/20 Cyanocobalamin [Vitamin B-12] 1,000 mcg PO DAILY #30 tab 08/02/20 Metoprolol Succinate (ER) [Toprol 25 mg PO DAILY@1300 #30 tab.er.24h 08/02/20 XL] Allergies Allergy/AdvReac Type Severity Reaction Status Date / Time Iodinated Contrast Media AdvReac Diarrhea, Verified 07/19/22 17:10 [Iodinated Contrast- Oral RASH and IV Dye] Review of Systems ROS Statement: Those systems with pertinent positive or pertinent negative responses have been documented in the HPI. ROS Other: All systems not noted in ROS Statement are negative. Past Medical History Past Medical History: Atrial Flutter, Coronary Artery Disease (CAD), Heart Failure, COPD, GERD/Reflux, Hearing Disorder / Deafness, Hyperlipidemia, Hypertension, Osteoarthritis (OA), Renal Disease, Vascular Disorder Additional Past Medical History / Comment(s): hx. gout, hx. colon polyps, circulation problems in legs, slight decreased kidney function, shingles History of Any Multi-Drug Resistant Organisms: MRSA Date of last positivie culture/infection: 02/14/22 MDRO Source:: Right Thigh Past Surgical History: Cholecystectomy, Heart Catheterization, Heart Catheterization With Stent Additional Past Surgical History / Comment(s): right bone graft to collar bone Past Anesthesia/Blood Transfusion Reactions: No Reported Reaction Date of Last Stent Placement:: 05/2020 Past Psychological History: No Psychological Hx Reported Smoking Status: Former smoker Past Alcohol Use History: None Reported Past Drug Use History: None Reported - Past Family History Mother Family Medical History: No Reported History General Exam Limitations: no limitations General appearance: alert, in no apparent distress Respiratory exam: Present: normal lung sounds bilaterally. Absent: respiratory distress, wheezes, rales, rhonchi, stridor Cardiovascular Exam: Present: regular rate, normal rhythm, normal heart sounds. Absent: systolic murmur, diastolic murmur, rubs, gallop, clicks Extremities exam: Present: other (The right thigh is normal in skin color with no erythema, swelling, or abrasion. There is no tenderness with palpation. Full range of motion of right hip and knee. Knee extension results in distal thigh pain. Neurovascularly intact ) Back exam: Present: normal inspection Neurological exam: Present: alert, oriented X3, CN II-XII intact Psychiatric exam: Present: normal affect, normal mood Skin exam: Present: warm, dry, intact, normal color. Absent: rash Course Vital Signs 07/19/22 17:10 Temperature 98.3 F Pulse Rate 71 Respiratory 18 Rate Blood Pressure 147/84 O2 Sat by Pulse 95 Oximetry Medical Decision Making - Medical Decision Making This is 81 -year-old male who presents with right thigh pain. The right thigh is normal in skin color with no erythema, swelling, or abrasion. There is no tenderness with palpation. Full range of motion of right hip and right knee. Knee extension results in distal thigh pain. Neurovascularly intact. Femur x-ray is negative for acute process. At this time there are no diagnostic studies to explain patient's pain. Possibly related to tendon or ligaments. Patient will be discharged with Tylenol 3 starter pack and orthopedic referral. Symptomatic treatment discussed in detail. Patient to continue with physical therapy. Dr. Dunne is my attending. Disposition Clinical Impression: Right thigh pain, Muscle spasm Disposition: HOME SELF-CARE Condition: Good Instructions (If sedation given, give patient instructions): Muscle Spasm (ED) Additional Instructions: Take medication as directed. Continue physical therapy. Follow-up with sterilization specialist in 1-2 days. Return to the emergency department experience new, concerning, or worsening symptoms. Is patient prescribed a controlled substance at d/c from ED?: No Referrals: Joanne Bergman DO [Primary Care Provider] - 1-2 days Kiesha Combs NPC [Nurse Practitioner] - 1-2 days Time of Disposition: 22:32
== END 2022-07-19 23:36 | disposition home or self-care (01) ==
LOC: EC 16:22
DX: Z91.041 Radiographic dye allergy status (principal); I11.0 Hypertensive heart disease with heart failure; J44.9 Chronic obstructive pulmonary disease, unspecified; E78.5 Hyperlipidemia, unspecified; K21.9 Gastro-esophageal reflux disease without esophagitis; Z79.83 Long term (current) use of bisphosphonates; Z87.891 Personal history of nicotine dependence; M79.651 Pain in right thigh
CPT/HCPCS: 99283

== ENCOUNTER 2022-08-28 13:30 | Inpatient (IN) | payer MEDICARE, BC ==
[2022-08-28 14:28] LABS: Basophils # (A) 0.1 k/uL (0-0.2); Basophils % (A) 0 %; Eosinophils % (A) 0 %; HCT 47.5 % (39.0-53.0); HGB 15.8 gm/dL (13.0-17.5); Lymphocytes # (A) 1.1 k/uL (1.0-4.8); Lymphocytes % (A) 6 %; MCH 29.8 pg (25.0-35.0); MCHC 33.3 g/dL (31.0-37.0); MCV 89.6 fL (80.0-100.0); Mean Platelet Volume 8.9; Monocytes # (A) 1.3 k/uL (0-1.0); Monocytes % (A) 7 %; Neutrophils # (A) 15.6 k/uL (1.3-7.7); Neutrophils % (A) 85 %; Platelet Count 242 k/uL (150-450); RBC 5.31 m/uL (4.30-5.90); RDW 14.9 % (11.5-15.5); WBC 18.4 k/uL (3.8-10.6)
[2022-08-28 14:29] LABS: Calcium 9.8 mg/dL (8.4-10.2); Potassium 3.9 mmol/L (3.5-5.1); Total Protein 7.6 g/dL (6.3-8.2)
[2022-08-28 14:50] LABS: INR 1.1 (<1.2); Partial Thromboplastin Time 26.4 sec (22.0-30.0); Prothrombin Time 11.6 sec (9.0-12.0)
[2022-08-28] MEDS ORDERED: SODIUM CHLORIDE 0.9% 1,000 ML IV ONE (17:29)
[2022-08-28] MEDS ORDERED: SODIUM CHLORIDE 0.9% 1,000 ML IV SCH (17:30)
--- NOTE | 2022-08-28 17:47 | ED ---
General Adult HPI - General Chief complaint: Weakness Stated complaint: Covid+, weakness, rt leg pain Time Seen by Provider: 08/28/22 16:38 Source: family, RN notes reviewed, old records reviewed Mode of arrival: wheelchair Limitations: no limitations - History of Present Illness Initial comments: 81-year-old male with increased generalized weakness, chills. Patient had been seen at outside hospital, was diagnosed with weakness and found to have anastasiya navirus. There was a plan to discharge to the long term but given the active Covid the patient was subsequently discharged home. He's failed to improve at home. He did have fall with head trauma prior to previous ER visit and his had some bleeding at the site of injury. Patient has no recorded fever but his had chills. No vomiting. Very poor oral intake. - Related Data Home Medications Medication Instructions Recorded Confirmed Atorvastatin [Lipitor] 20 mg PO DAILY 10/17/18 08/28/22 Budesonide/Formoterol Fumarate 2 puff INHALATION RT-BID 10/17/18 08/28/22 [Symbicort 160-4.5 Mcg Inhaler] Digoxin [Lanoxin] 125 mcg PO DAILY 10/17/18 08/28/22 Apixaban [Eliquis] 2.5 mg PO BID 06/05/20 08/28/22 Albuterol Nebulized [Ventolin 2.5 mg INHALATION RT-Q6H PRN 08/28/22 08/28/22 Nebulized] Furosemide [Lasix] 20 mg PO DAILY 08/28/22 08/28/22 HYDROcodone/APAP 5-325MG [[place] 1 tab PO QID PRN 08/28/22 08/28/22 5-325] Ibuprofen [Motrin Ib] 600 mg PO TID PRN 08/28/22 08/28/22 methocarbamoL [Methocarbamol] 750 mg PO TID PRN 08/28/22 08/28/22 traMADol HCL 50 mg PO QID PRN 08/28/22 08/28/22 Previous Rx's Medication Instructions Recorded Clopidogrel [Plavix] 75 mg PO DAILY #30 tab 06/09/20 Acetaminophen Tab [Tylenol] 650 mg PO Q4HR PRN tab 08/02/20 Allergies Allergy/AdvReac Type Severity Reaction Status Date / Time Penicillins Allergy Anaphylaxis Verified 08/28/22 17:46 Iodinated Contrast Media AdvReac Diarrhea, Verified 08/28/22 17:46 [Iodinated Contrast- Oral RASH and IV Dye] Review of Systems ROS Statement: Those systems with pertinent positive or pertinent negative responses have been documented in the HPI. ROS Other: All systems not noted in ROS Statement are negative. Past Medical History Past Medical History: Atrial Flutter, Coronary Artery Disease (CAD), Heart Failure, COPD, GERD/Reflux, Hearing Disorder / Deafness, Hyperlipidemia, Hypertension, Osteoarthritis (OA), Renal Disease, Vascular Disorder Additional Past Medical History / Comment(s): hx. gout, hx. colon polyps, circulation problems in legs, slight decreased kidney function, shingles History of Any Multi-Drug Resistant Organisms: MRSA Date of last positivie culture/infection: 02/14/22 MDRO Source:: Right Thigh Past Surgical History: Cholecystectomy, Heart Catheterization, Heart Catheterization With Stent Additional Past Surgical History / Comment(s): right bone graft to collar bone Past Anesthesia/Blood Transfusion Reactions: No Reported Reaction Date of Last Stent Placement:: 05/2020 Past Psychological History: No Psychological Hx Reported Smoking Status: Former smoker Past Alcohol Use History: None Reported Past Drug Use History: None Reported - Past Family History Mother Family Medical History: No Reported History General Exam Limitations: no limitations General appearance: alert, in no apparent distress Eye exam: Present: normal appearance, PERRL ENT exam: Present: mucous membranes dry Neck exam: Present: normal inspection. Absent: tenderness, meningismus Respiratory exam: Present: wheezes, decreased breath sounds. Absent: respiratory distress Cardiovascular Exam: Present: regular rate, normal rhythm GI/Abdominal exam: Present: soft. Absent: distended, tenderness, guarding Extremities exam: Present: normal inspection, normal capillary refill Neurological exam: Present: alert. Absent: motor sensory deficit Psychiatric exam: Present: normal affect, normal mood Skin exam: Present: warm, dry, intact Course Vital Signs 08/28/22 08/28/22 13:37 17:02 Temperature 99.2 F Pulse Rate 66 103 H Respiratory 20 24 Rate Blood Pressure 125/65 152/117 O2 Sat by Pulse 96 Oximetry EKG Findings - EKG Comments: EKG Findings:: Atrial flutter, rate 94, QRS duration 105, QTC 380, no ST segment elevation, incomplete right bundle-branch block. Medical Decision Making - Medical Decision Making 81-year-old male with generalized weakness, fever, cough. Diagnosed with coronavirus about one week ago. Patient has not been eating or drinking well. He has had a cough. Workup was initiated, there is a leukocytosis of 18,000. Chest x-ray does show a left-sided pneumonia. This may be a secondary bacterial pneumonia or may be related to coronavirus. Patient will be admitted for IV hydration and IV antibiotics. Case discussed with [facility] - Lab Data Result diagrams: 08/28/22 13:50 08/28/22 13:50 Lab Results 08/28/22 08/28/22 08/28/22 Range/Units 13:50 13:50 13:50 WBC 18.4 H (3.8-10.6) k/uL RBC 5.31 (4.30-5.90) m/uL Hgb 15.8 (13.0-17.5) gm/dL Hct 47.5 (39.0-53.0) % MCV 89.6 (80.0-100.0) fL MCH 29.8 (25.0-35.0) pg MCHC 33.3 (31.0-37.0) g/dL RDW 14.9 (11.5-15.5) % Plt Count 242 (150-450) k/uL MPV 8.9 Neutrophils % 85 % Lymphocytes % 6 % Monocytes % 7 % Eosinophils % 0 % Basophils % 0 % Neutrophils # 15.6 H (1.3-7.7) k/uL Lymphocytes # 1.1 (1.0-4.8) k/uL Monocytes # 1.3 H (0-1.0) k/uL Eosinophils # 0.0 (0-0.7) k/uL Basophils # 0.1 (0-0.2) k/uL PT 11.6 (9.0-12.0) sec INR 1.1 (<1.2) APTT 26.4 (22.0-30.0) sec Sodium 136 L (137-145) mmol/L Potassium 3.9 (3.5-5.1) mmol/L Chloride 100 (98-107) mmol/L Carbon Dioxide 24 (22-30) mmol/L Anion Gap 12 mmol/L BUN 19 (9-20) mg/dL Creatinine 0.92 (0.66-1.25) mg/dL Est GFR (CKD-EPI)AfAm 89 (>60 ml/min/1.73 sqM) Est GFR (CKD-EPI)NonAf 77 (>60 ml/min/1.73 sqM) Glucose 125 H (74-99) mg/dL Calcium 9.8 (8.4-10.2) mg/dL Total Bilirubin 1.0 (0.2-1.3) mg/dL AST 30 (17-59) U/L ALT 35 (4-49) U/L Alkaline Phosphatase 88 (38-126) U/L Troponin I (0.000-0.034) ng/mL Total Protein 7.6 (6.3-8.2) g/dL Albumin 4.0 (3.5-5.0) g/dL Coronavirus (PCR) (Not Detectd) 08/28/22 08/28/22 Range/Units 13:50 17:12 WBC (3.8-10.6) k/uL RBC (4.30-5.90) m/uL Hgb (13.0-17.5) gm/dL Hct (39.0-53.0) % MCV (80.0-100.0) fL MCH (25.0-35.0) pg MCHC (31.0-37.0) g/dL RDW (11.5-15.5) % Plt Count (150-450) k/uL MPV Neutrophils % % Lymphocytes % % Monocytes % % Eosinophils % % Basophils % % Neutrophils # (1.3-7.7) k/uL Lymphocytes # (1.0-4.8) k/uL Monocytes # (0-1.0) k/uL Eosinophils # (0-0.7) k/uL Basophils # (0-0.2) k/uL PT (9.0-12.0) sec INR (<1.2) APTT (22.0-30.0) sec Sodium (137-145) mmol/L Potassium (3.5-5.1) mmol/L Chloride (98-107) mmol/L Carbon Dioxide (22-30) mmol/L Anion Gap mmol/L BUN (9-20) mg/dL Creatinine (0.66-1.25) mg/dL Est GFR (CKD-EPI)AfAm (>60 ml/min/1.73 sqM) Est GFR (CKD-EPI)NonAf (>60 ml/min/1.73 sqM) Glucose (74-99) mg/dL Calcium (8.4-10.2) mg/dL Total Bilirubin (0.2-1.3) mg/dL AST (17-59) U/L ALT (4-49) U/L Alkaline Phosphatase (38-126) U/L Troponin I 0.031 (0.000-0.034) ng/mL Total Protein (6.3-8.2) g/dL Albumin (3.5-5.0) g/dL Coronavirus (PCR) Detected A (Not Detectd) Disposition Clinical Impression: SOB (shortness of breath), Generalized weakness, COVID-19, Pneumonia Disposition: ADMITTED IP TO THIS HOSP Condition: Stable Is patient prescribed a controlled substance at d/c from ED?: No Referrals: Joanne Bergman DO [Primary Care Provider] - 1-2 days Time of Disposition: 18:23
--- NOTE | 2022-08-28 18:01 | XR ---
EXAMINATION TYPE: XR chest 2V DATE OF EXAM: 08/28/2022 COMPARISON: 12/13/2021 HISTORY: Leg weakness TECHNIQUE: 2 views FINDINGS: There is some coarse interstitial and airspace infiltrate in the left upper lobe and left l ower lobe. There is slight increased interstitial density right lung. No obvious heart failure. Heart is borderline enlarged. No pleural effusion. IMPRESSION: There is left upper lobe and left lower lobe pneumonia which is mostly new compared to ol d exam. No heart failure seen.
[2022-08-28] MEDS ORDERED: AZITHROMYCIN 500 MG in SODIUM CHLORIDE 0.9% 250 ML IVPB STA (18:10)
[2022-08-28] MEDS ORDERED: LEVOFLOXACIN 500MG-D5W PMX 500 MG in DEXTROSE/WATER 1 100ML.BAG IVPB STA (18:11)
[2022-08-28] MEDS ORDERED: NALOXONE 0.4 MG/ML 1 ML VIAL IV PRN (18:11)
[2022-08-28] MEDS ORDERED: ACETAMINOPHEN TAB 325 MG TAB PO PRN (18:11)
[2022-08-28] MEDS ORDERED: ALBUTEROL HFA INHALER INHALATION PRN (19:21)
[2022-08-28] MEDS: SYMBICORT 160-4.5 MCG INHALER INHALATION SCH (20:00)
[2022-08-28] MEDS: ALBUTEROL HFA INHALER INHALATION SCH (20:00)
[2022-08-28] MEDS: HYDROcodone/APAP 5-325MG 1 EACH TAB PO PRN (20:36)
[2022-08-28] MEDS ORDERED: APIXABAN 2.5 MG TABLET PO SCH (21:00)
[2022-08-28 21:03] LABS: Appearance,Urine Clear (Clear); Bilirubin,Urine Negative (Negative); Blood,Urine Negative (Negative); Color,Urine Yellow; Glucose,Urine (UA) Negative (Negative); Ketones,Urine Negative (Negative); Leukocyte Esterase,Urine Negative (Negative); Mucus,Urine Rare /hpf; Nitrite,Urine Negative (Negative); Protein,Urine 2+ (Negative); RBC,Urine <1 /hpf (0-5); Specific Gravity,Urine 1.022 (1.001-1.035); Squamous Epithelial Cell,Urine <1 /hpf (0-4); Urobilinogen,Urine <2.0 mg/dL (<2.0); WBC,Urine 1 /hpf (0-5)
[2022-08-29] MEDS: ONDANSETRON 4 MG/2 ML VIAL IVP PRN ×2 (00:26→12:59)
[2022-08-29] MEDS ORDERED: TRANEXAMIC ACID 1,000 MG/10 ML VIAL MISCELLANE ONE (01:41)
[2022-08-29 03:14] LABS: C Reactive Protein 21.8 mg/dL (0.00-0.80)
[2022-08-29] MEDS: PANTOPRAZOLE 40 MG TABLET PO SCH (07:41)
[2022-08-29] MEDS: ZINC SULFATE 220 MG CAP PO SCH (08:56)
[2022-08-29] MEDS: ASCORBIC ACID 500 MG TAB PO SCH (08:57)
[2022-08-29] MEDS: DIGOXIN 125 MCG TAB PO SCH (08:57)
[2022-08-29] MEDS: ATORVASTATIN 20 MG TAB PO SCH (08:57)
[2022-08-29] MEDS: CHOLECALCIFEROL 25 MCG (1000 IU) TABLET PO SCH (08:57)
[2022-08-29] MEDS: CLOPIDOGREL 75 MG TAB PO SCH (08:58)
[2022-08-29] MEDS: SYMBICORT 160-4.5 MCG INHALER INHALATION SCH ×2 (09:08→19:19)
[2022-08-29] MEDS: ALBUTEROL HFA INHALER INHALATION SCH ×4 (09:08→19:19)
[2022-08-29] MEDS ORDERED: ENOXAPARIN 40 MG/0.4 ML SYRINGE SQ SCH (11:15)
[2022-08-29 12:30] LABS: Basophils # (A) 0.1 k/uL (0-0.2); Basophils % (A) 0 %; Eosinophils % (A) 0 %; HGB 15.3 gm/dL (13.0-17.5); Lymphocytes # (A) 0.7 k/uL (1.0-4.8); Lymphocytes % (A) 3 %; MCH 30.5 pg (25.0-35.0); MCHC 33.3 g/dL (31.0-37.0); MCV 91.7 fL (80.0-100.0); Mean Platelet Volume 8.5; Monocytes # (A) 1.6 k/uL (0-1.0); Monocytes % (A) 7 %; Neutrophils # (A) 20.5 k/uL (1.3-7.7); Neutrophils % (A) 88 %; Platelet Count 213 k/uL (150-450); RBC 5.02 m/uL (4.30-5.90); WBC 23.4 k/uL (3.8-10.6)
[2022-08-29 12:42] LABS: African American GFR (CKD) >90 (>60 ml/min/1.73 sqM); Anion Gap 13 mmol/L; Blood Urea Nitrogen 17 mg/dL (9-20); Calcium 9.4 mg/dL (8.4-10.2); Carbon Dioxide 21 mmol/L (22-30); Chloride 102 mmol/L (98-107); Glucose 112 mg/dL (74-99); Non-African American GFR(CKD) 80 (>60 ml/min/1.73 sqM); Potassium 3.6 mmol/L (3.5-5.1); Sodium 136 mmol/L (137-145)
[2022-08-29] MEDS: AZITHROMYCIN 500 MG TAB PO SCH (12:59)
[2022-08-29] MEDS: HYDROcodone/APAP 5-325MG 1 EACH TAB PO PRN ×2 (17:45→22:53)
--- NOTE | 2022-08-29 23:46 | P.HPIM ---
History of Present Illness H&P Date: 08/29/22 Chief Complaint: Generalized weakness Patient is a 81-year-old male with a known history of atrial flutter, coronary artery disease with history of stent placement, hearing disorder/deafness, hypertension, hyperlipidemia, cellulitis, peripheral vascular disease and prior history of smoking presents to ER with complaints of generalized weakness and chills and shortness of breath. Patient was diagnosed with COVID-19 infection at outside hospital. Plan was to discharge him to group home but given COVID- 19 positive status it was felt frequently discharged home. Patient has been having generalized weakness and falls at home. Patient has decreased oral intake.. Patient does have nausea. No chills or vomiting. No diarrhea. On admission patient was tachycardic and saturating at 96% on 2 L of oxygen via nasal cannula. Chest x-ray showed there is a left upper lobe and left lower lobe pneumonia which is mostly new compared to old exam. No heart failure seen. Laboratory data showed WBC 18.4 hemoglobin 15.8 and platelets 242 Sodium 136 potassium 3.9 chloride 100 bicarb is 24 BUN 19 and creatinine 0.92 and blood sugar is 125 Liver enzymes are not elevated. LDH 336 and CRP 21.8 troponin 0.031 and procalcitonin level is 0.19. Urinalysis is negative for infection COVID-19 PCR detected. Review of Systems Constitutional: Patient denies any fever. + chills . Generalized weakness and falls.. Abdomen: Patient does have nausea. No chills or vomiting. No abd. pain. No diarrhea. Cardiovascular: Patient denies any chest pain or short of breath no palpitations. Respiratory: Does have cough without sputum production.. Worsening shortness of breath Neurologic: Patient denied any numbness or tingling headache. Musculoskeletal: Patient denies any complaints of joint swelling or deformity. Skin: Negative Psychiatric: Negative Endocrine: No heat or cold intolerance. No recent weight gain. Genitourinary: No dysuria or hematuria. All other 14 point ROS negative except the above Past Medical History Past Medical History: Atrial Flutter, Coronary Artery Disease (CAD), Heart Failure, COPD, GERD/Reflux, Hearing Disorder / Deafness, Hyperlipidemia, Hypertension, Osteoarthritis (OA), Renal Disease, Vascular Disorder Additional Past Medical History / Comment(s): hx. gout, hx. colon polyps, circulation problems in legs, slight decreased kidney function, shingles History of Any Multi-Drug Resistant Organisms: MRSA Date of last positivie culture/infection: 02/14/22 MDRO Source:: Right Thigh Past Surgical History: Cholecystectomy, Heart Catheterization, Heart Cath eterization With Stent Additional Past Surgical History / Comment(s): right bone graft to collar bone Past Anesthesia/Blood Transfusion Reactions: No Reported Reaction Date of Last Stent Placement:: 05/2020 Past Psychological History: No Psychological Hx Reported Smoking Status: Former smoker Past Alcohol Use History: None Reported Past Drug Use History: None Reported - Past Family History Mother Family Medical History: No Reported History Medications and Allergies Home Medications Medication Instructions Recorded Confirmed Type Atorvastatin [Lipitor] 20 mg PO DAILY 10/17/18 08/28/22 History Budesonide/Formoterol Fumarate 2 puff INHALATION RT-BID 10/17/18 08/28/22 History [Symbicort 160-4.5 Mcg Inhaler] Digoxin [Lanoxin] 125 mcg PO DAILY 10/17/18 08/28/22 History Apixaban [Eliquis] 2.5 mg PO BID 06/05/20 08/28/22 History Clopidogrel [Plavix] 75 mg PO DAILY #30 tab 06/09/20 08/28/22 Rx Acetaminophen Tab [Tylenol] 650 mg PO Q4HR PRN tab 08/02/20 08/28/22 Rx Albuterol Nebulized [Ventolin 2.5 mg INHALATION RT-Q6H PRN 08/28/22 08/28/22 History Nebulized] Furosemide [Lasix] 20 mg PO DAILY 08/28/22 08/28/22 History HYDROcodone/APAP 5-325MG [[place] 1 tab PO QID PRN 08/28/22 08/28/22 History 5-325] Ibuprofen [Motrin Ib] 600 mg PO TID PRN 08/28/22 08/28/22 History methocarbamoL [Methocarbamol] 750 mg PO TID PRN 08/28/22 08/28/22 History traMADol HCL 50 mg PO QID PRN 08/28/22 08/28/22 History Allergies Allergy/AdvReac Type Severity Reaction Status Date / Time Penicillins Allergy Anaphylaxis Verified 08/28/22 17:46 Iodinated Contrast Media AdvReac Diarrhea, Verified 08/28/22 17:46 [Iodinated Contrast- Oral RASH and IV Dye] Physical Exam Vitals: Vital Signs Temp Pulse Resp BP Pulse Ox 08/29/22 07:42 103 H 18 144/79 95 08/29/22 04:00 88 16 148/82 99 08/29/22 02:14 96 146/95 96 08/29/22 01:29 96 22 96 08/29/22 00:00 87 16 106/88 98 08/28/22 23:53 98.5 F 08/28/22 22:41 66 18 122/80 97 08/28/22 18:33 92 18 127/73 96 08/28/22 17:02 103 H 24 152/117 08/28/22 13:37 99.2 F 66 20 125/65 96 PHYSICAL EXAMINATION: Patient is lying in the bed comfortably, no acute distress, awake alert and oriented.Seems to be lethargic.. HEENT: Normocephalic. Neck is supple. Pupils reactive. Nostrils clear. Oral cavity is moist. Neck reveals no JVD, carotid bruits, or thyromegaly. CHEST EXAMINATION: Trachea is central. Symmetrical expansion. Bilateral coarse breath sounds and basilar crackles. Nonlabored breathing.. CARDIAC: Normal S1, S2 with no gallops. No murmurs ABDOMEN: Soft. Bowel sounds present. Nontender. No organomegaly. No abdominal bruits. Extremities: reveal no edema. No clubbing or cyanosis Neurologically awake, alert, oriented x2-3 with well-coordinated movements. No gross focal deficits noted Skin: No rash or skin lesions. Psychiatric: Coperative. Nonsuicidal, Musculoskeletal: No joint swelling or deformity. Normal range of motion. Results CBC & Chem 7: 08/29/22 12:12 08/29/22 12:12 Labs: Abnormal Lab Results - Last 24 Hours (Table) 08/28/22 08/28/22 08/28/22 Range/Units 13:50 13:50 13:50 WBC 18.4 H (3.8-10.6) k/uL Neutrophils # 15.6 H (1.3-7.7) k/uL Monocytes # 1.3 H (0-1.0) k/uL Sodium 136 L (137-145) mmol/L Glucose 125 H (74-99) mg/dL Lactate Dehydrogenase (120-246) U/L C-Reactive Protein (0.00-0.80) mg/dL Procalcitonin 0.19 H (0.02-0.09) ng/mL Urine Protein (Negative) Urine Mucus (None) /hpf Coronavirus (PCR) (Not Detectd) 08/28/22 08/28/22 08/28/22 Range/Units 13:50 17:12 20:41 WBC (3.8-10.6) k/uL Neutrophils # (1.3-7.7) k/uL Monocytes # (0-1.0) k/uL Sodium (137-145) mmol/L Glucose (74-99) mg/dL Lactate Dehydrogenase 336 H (120-246) U/L C-Reactive Protein 21.80 H (0.00-0.80) mg/dL Procalcitonin (0.02-0.09) ng/mL Urine Protein 2+ H (Negative) Urine Mucus Rare H (None) /hpf Coronavirus (PCR) Detected A (Not Detectd) Thrombosis Risk Factor Assmnt - DVT/VTE Prophylaxis DVT/VTE Prophylaxis: Pharmacologic Prophylaxis ordered Assessment and Plan Assessment: Left upper and left lower lobe pneumonia and sepsis secondary to pneumonia Acute COVID-19 pneumonia-patient has not been vaccinated. Elevated inflammatory markers Acute hypoxic respiratory failure requiring oxygen at 2 L via nasal cannula. Generalized weakness and falls at home. Chronic atrial fibrillation/flutter on anticoagulation with Eliquis. Coronary disease history of stent placement GERD Hearing disorder/deafness Hypertension Hyperlipidemia Osteoarthritis Peripheral vascular disease with bilateral occluded SFA and bilateral popliteal arteries. History of gout DVT prophylaxis patient is already on full anticoagulation Plan: Patient will be continued on oxygen supplementation. Was given antibiotics Levaquin and azithromycin in the ER. Continue with ceftriaxone and azithromycin. Follow-up blood cultures. Due to hypoxia patient will be started on dexamethasone 6 mg daily and continue with duo nebs and Symbicort. Continue supportive care with multivitamins and GI prophylaxis. Follow-up repeat CBC and BMP and inflammatory markers. Pulmonary will be consulted for evaluation. Prognosis is guarded at this time. Time with Patient: Greater than 30
[2022-08-30] MEDS: DEXAMETHASONE SOD PHOSPHATE 10 MG/ML 1 ML VIAL IVP SCH ×2 (03:24→08:23)
[2022-08-30] MEDS: HYDROcodone/APAP 5-325MG 1 EACH TAB PO PRN ×2 (04:32→20:35)
--- NOTE | 2022-08-30 07:37 | XR ---
EXAMINATION TYPE: XR chest 1V DATE OF EXAM: 08/30/2022 COMPARISON: 08/28/2022 HISTORY: 81 year-old male shortness of breath TECHNIQUE: Single frontal view of the chest is obtained. FINDINGS: Heart mildly enlarged. Focal airspace opacity left mid and lower lung. Possible trace left effusion. Possible old healed fracture deformity mid right clavicular shaft. IMPRESSION: 1. Airspace disease left mid and lower lung. Correlate for pneumonia versus atypical pulmonary edema. 2. Trace left pleural effusion.
[2022-08-30] MEDS: ALBUTEROL HFA INHALER INHALATION SCH ×4 (07:51→21:48)
[2022-08-30] MEDS: SYMBICORT 160-4.5 MCG INHALER INHALATION SCH ×2 (07:51→21:48)
[2022-08-30] MEDS: PANTOPRAZOLE 40 MG TABLET PO SCH (08:23)
[2022-08-30] MEDS: APIXABAN 2.5 MG TABLET PO SCH ×2 (08:24→20:35)
[2022-08-30] MEDS: ASCORBIC ACID 500 MG TAB PO SCH (08:24)
[2022-08-30] MEDS: DIGOXIN 125 MCG TAB PO SCH (08:24)
[2022-08-30] MEDS: AZITHROMYCIN 500 MG TAB PO SCH (08:24)
[2022-08-30] MEDS: CLOPIDOGREL 75 MG TAB PO SCH (08:24)
[2022-08-30] MEDS: ZINC SULFATE 220 MG CAP PO SCH (08:24)
[2022-08-30] MEDS: CHOLECALCIFEROL 25 MCG (1000 IU) TABLET PO SCH (08:24)
[2022-08-30] MEDS: ATORVASTATIN 20 MG TAB PO SCH (08:24)
--- NOTE | 2022-08-30 09:21 | CT ---
EXAMINATION TYPE: CT brain wo con CT DLP: 1151.4 mGycm, Automated exposure control for dose reduction was used. DATE OF EXAM: 08/30/2022 9:11 AM COMPARISON: Prior CT Brain from 02/10/2010. CLINICAL INDICATION:Male, 81 years old with history of Falls at home, TECHNIQUE: Brain: Multiple axial CT images of the brain were obtained without IV contrast. Coronal and sagittal reformats reviewed. FINDINGS: Brain: Extra-axial spaces: No abnormal extra-axial fluid collections. Calcification along the falx. Ventricular system: Dilatation in proportion to cerebral atrophy. Cerebral parenchyma: No acute intraparenchymal hemorrhage or mass effect. The manzanares-white junction is well differentiated. Confluent hypoattenuating areas are seen within the white matter. Cerebral whi te loss. Cerebellum: Unremarkable. Mass effect: No evidence of midline shift. Intracranial vasculature: Atherosclerotic calcifications of the intracranial vessels. Soft tissues: Right posterior parietal scalp hematoma measuring 1.1 cm in thickness with skin albert identified. Calvarium/osseous structures: No depressed skull fracture. Paranasal sinuses and mastoid air cells: The mastoid air cells are clear. Mild mucosal thickening of the left maxillary sinus. Visualized orbits: Bilateral aphakia IMPRESSION: 1. No acute intracranial process. 2. Nonspecific white matter changes, likely secondary to chronic small vessel ischemic disease. 3. Right posterior parietal scalp hematoma.
[2022-08-30 12:55] LABS: HCT 44.5 % (39.6-50.0); HGB 14.4 g/dL (13.0-17.0); MCH 30.2 pg (27.0-32.0); MCHC 32.4 g/dL (32.0-37.0); MCV 93.3 fL (80.0-97.0); Mean Platelet Volume 10.6 fL (9.5-12.2); NRBC Per 100 WBC 0 /100 WBCS (0.0-0.0); Platelet Count 254 X 10*3/uL (140-440); RBC 4.77 X 10*6/uL (4.40-5.60); RDW 15.9 % (11.5-14.5); WBC 23.09 X 10*3/uL (4.50-10.00)
[2022-08-30 13:09] LABS: African American GFR (CKD) 70.5 (60.0-200.0); Anion Gap 11.1 mmol/L (10.00-18.00); BUN/Creat Ratio 21.61 Ratio (12.00-20.00); Blood Urea Nitrogen 24.2 mg/dL (9.0-27.0); C Reactive Protein 31.7 mg/dL (0.00-0.80); Calcium 9.8 mg/dL (8.7-10.3); Carbon Dioxide 25.8 mmol/L (20.0-27.5); Non-African American GFR(CKD) 60.9 (60.0-200.0); Potassium 4.7 mmol/L (3.5-5.5)
[2022-08-30 14:58] LABS: Basophils # (A) 0.06 X 10*3/uL (0.00-0.10); Basophils % (A) 0.3 %; Eosinophils # (A) 0.08 X 10*3/uL (0.04-0.35); Eosinophils % (A) 0.3 %; Immature Grans, Automated 1.3 %; Lymphocytes # (A) 1.04 X 10*3/uL (0.90-5.00); Lymphocytes % (A) 4.5 %; Monocytes # (A) 2.34 X 10*3/uL (0.20-1.00); Monocytes % (A) 10.1 %; Neutrophils # (A) 19.26 X 10*3/uL (1.80-7.70); Neutrophils % (A) 83.5 %
[2022-08-30 14:59] LABS: RBC Morphology NORMAL
--- NOTE | 2022-08-30 15:18 | P.CNPUL ---
History of Present Illness Consult date: 08/30/22 Requesting physician: Brittany Oliveira Reason for consult: dyspnea, cough, COPD, hypoxemia, pneumonia, abnormal CXR/CT Chief complaint: Shortness of breath, and cough. History of present illness: Pulmonary consult dated 08/30/2022. 81-year-old male, who presents to the emergency department, on August 28, complaining of generalized weakness, chills, and fatigue. The patient was tested for coronavirus, by nasal swab, and was positive. Patient was to be [facility] to the [facility], but given the positive nasal swab for coronavirus, the patient was admitted to the hospital. We were consulted because of the patient's shortness of breath, and cough. Currently, he's on 2 L of oxygen. He's not receiving any IV fluids. He is not manifesting any overt signs of respiratory distress. He has a history of atrial flutter, CAD, heart failure, COPD, GERD, hyperlipidemia, hypertension, and osteoarthritis, among other things. White count 23, hemoglobin 14.4, hematocrit 44.5, platelet count 254,000. Sodium 138, potassium 4.7, chlorides 101, CO2 26, anion gap 11, BUN 24, creatinine 1.1. The patient's chest x-ray shows evidence of left-sided pneumonia. The patient's pro-calcitonin level is 0.19. Review of Systems REVIEW OF SYSTEMS: CONSTITUTIONAL: Weakness and fatigue. NEUROLOGIC: [ Negative.] HEENT: [ Negative.] CARDIAC: [Negative.] PULMONARY: Shortness of breath and cough. GI: [Negative.] : [Negative.] RHEUMATOLOGIC: [ Negative.] IMMUNOLOGIC: [ Negative.] ENDOCRINE: [Negative. ] DERMATOLOGIC: [Negative.] Past Medical History Past Medical History: Atrial Flutter, Coronary Artery Disease (CAD), Heart Failure, COPD, GERD/Reflux, Hearing Disorder / Deafness, Hyperlipidemia, Hypertension, Osteoarthritis (OA), Renal Disease, Vascular Disorder Additional Past Medical History / Comment(s): hx. gout, hx. colon polyps, circulation problems in legs, slight decreased kidney function, shingles History of Any Multi-Drug Resistant Organisms: MRSA Date of last positivie culture/infection: 02/14/22 MDRO Source:: Right Thigh Past Surgical History: Cholecystectomy, Heart Catheterization, Heart Catheterization With Stent Additional Past Surgical History / Comment(s): right bone graft to collar bone Past Anesthesia/Blood Transfusion Reactions: No Reported Reaction Date of Last Stent Placement:: 05/2020 Past Psychological History: No Psychological Hx Reported Smoking Status: Former smoker Past Alcohol Use History: None Reported Past Drug Use History: None Reported - Past Family History Mother Family Medical History: No Reported History Medications and Allergies Home Medications Medication Instructions Recorded Confirmed Type Atorvastatin [Lipitor] 20 mg PO DAILY 10/17/18 08/28/22 History Budesonide/Formoterol Fumarate 2 puff INHALATION RT-BID 10/17/18 08/28/22 History [Symbicort 160-4.5 Mcg Inhaler] Digoxin [Lanoxin] 125 mcg PO DAILY 10/17/18 08/28/22 History Apixaban [Eliquis] 2.5 mg PO BID 06/05/20 08/28/22 History Clopidogrel [Plavix] 75 mg PO DAILY #30 tab 06/09/20 08/28/22 Rx Acetaminophen Tab [Tylenol] 650 mg PO Q4HR PRN tab 08/02/20 08/28/22 Rx Albuterol Nebulized [Ventolin 2.5 mg INHALATION RT-Q6H PRN 08/28/22 08/28/22 History Nebulized] Furosemide [Lasix] 20 mg PO DAILY 08/28/22 08/28/22 History HYDROcodone/APAP 5-325MG [[place] 1 tab PO QID PRN 08/28/22 08/28/22 History 5-325] Ibuprofen [Motrin Ib] 600 mg PO TID PRN 08/28/22 08/28/22 History methocarbamoL [Methocarbamol] 750 mg PO TID PRN 08/28/22 08/28/22 History traMADol HCL 50 mg PO QID PRN 08/28/22 08/28/22 History Allergies Allergy/AdvReac Type Severity Reaction Status Date / Time Penicillins Allergy Anaphylaxis Verified 08/28/22 17:46 Iodinated Contrast Media AdvReac Diarrhea, Verified 08/28/22 17:46 [Iodinated Contrast- Oral RASH and IV Dye] Physical Exam Osteopathic Statement: *. No significant issues noted on an osteopathic structural exam other than those noted in the History and Physical/Consult. Vitals: Vital Signs Temp Pulse Resp BP Pulse Ox 08/30/22 08:16 98.3 F 83 18 138/78 95 08/30/22 02:00 98.5 F 56 L 19 135/79 94 L 08/29/22 19:51 98.0 F 78 18 116/68 90 L 08/29/22 17:27 97.9 F 61 24 128/56 90 L Intake and Output 08/30/22 08/30/22 08/30/22 06:59 14:59 22:59 Output Total 350 Balance -350 Output: Urine 350 Other: Voiding Method Urinal External Catheter No acute distress, oriented 3. Currently on 2 L of oxygen. Saturations 95%. No conversational dyspnea. HEENT examination is grossly unremarkable. Neck supple. Full range of motion. No adenopathy thyromegaly or neck vein distention. Cardiovascular examination reveals regular rhythm rate. S1-S2 normal. No S3 or S4. No discernible murmur noted. Heart rate 83 bpm. Lungs reveal scattered bilateral rhonchi. No wheezes. No crackles. Breath sounds equal bilaterally. Saturations are in the mid 90s. Abdomen soft bowel sounds are heard. No masses or tenderness. Extremities are intact. No cyanosis clubbing or edema. Skin is without rash or lesion. Neurologic examination is brief but nonfocal. Results - Laboratory Findings CBC and BMP: 08/30/22 05:51 08/30/22 05:51 PT/INR, D-dimer PT 11.6 sec (9.0-12.0) 08/28/22 13:50 INR 1.1 (<1.2) 08/28/22 13:50 Abnormal lab findings: Abnormal Labs 08/28/22 08/28/22 08/28/22 13:50 13:50 13:50 WBC 18.4 H RDW Immature Gran # Neutrophils # 15.6 H Lymphocytes # Monocytes # 1.3 H Sodium 136 L Carbon Dioxide BUN/Creatinine Ratio Glucose 125 H Lactate Dehydrogenase C-Reactive Protein Procalcitonin 0.19 H Urine Protein Urine Mucus Coronavirus (PCR) 08/28/22 08/28/22 08/28/22 13:50 17:12 20:41 WBC RDW Immature Gran # Neutrophils # Lymphocytes # Monocytes # Sodium Carbon Dioxide BUN/Creatinine Ratio Glucose Lactate Dehydrogenase 336 H C-Reactive Protein 21.80 H Procalcitonin Urine Protein 2+ H Urine Mucus Rare H Coronavirus (PCR) Detected A 08/29/22 08/29/22 08/30/22 12:12 12:12 05:51 WBC 23.4 H 23.09 H RDW 15.9 H Immature Gran # 0.31 H Neutrophils # 20.5 H 19.26 H Lymphocytes # 0.7 L Monocytes # 1.6 H 2.34 H Sodium 136 L Carbon Dioxide 21 L BUN/Creatinine Ratio Glucose 112 H Lactate Dehydrogenase C-Reactive Protein Procalcitonin Urine Protein Urine Mucus Coronavirus (PCR) 08/30/22 05:51 WBC RDW Immature Gran # Neutrophils # Lymphocytes # Monocytes # Sodium Carbon Dioxide BUN/Creatinine Ratio 21.61 H Glucose Lactate Dehydrogenase C-Reactive Protein 31.70 H Procalcitonin Urine Protein Urine Mucus Coronavirus (PCR) - Diagnostic Findings Chest x-ray: image reviewed Assessment and Plan Assessment: Acute hypoxemic respiratory failure secondary to left-sided pneumonia. History of coronavirus infection, and possible coronavirus associated pneumonia. History of coronary artery disease, with previous stenting. History of atrial flutter. History of CHF. History of COPD, from previous tobacco use. History of hyperlipidemia. History of hypertension. History of deafness. History of GERD. History of gout. Multiple other medical problems and comorbidities. Plan: Plan dated 08/30/2022. The patient is currently an albuterol inhaler, and Symbicort. In addition, he is getting vitamin C, vitamin D3, and zinc. The patient is ready on a factor X a inhibitor because of his atrial flutter. The patient is also on Rocephin, and is getting Zithromax. This is because he may in fact have only community- acquired pneumonia. The patient may or may not have coronavirus associated pneumonia. In my opinion, he is not behaving that way at this time. Finally, the patient's getting Decadron 6 mg a day. We will continue to follow make recommendations where appropriate. Labs, x-rays, and medications are all reviewed. The patient appears to be relatively stable at this time. Time with Patient: Greater than 30
--- NOTE | 2022-08-31 00:42 | P.PN ---
Subjective Progress Note Date: 08/30/22 Patient is a 81-year-old male with a known history of atrial flutter, coronary artery disease with history of stent placement, hearing disorder/deafness, hypertension, hyperlipidemia, cellulitis, peripheral vascular disease and prior history of smoking presents to ER with complaints of generalized weakness and chills and shortness of breath. Patient was diagnosed with COVID-19 infection at outside hospital. [facility] but given COVID- 19 positive status it was felt frequently discharged home. Patient has been having generalized weakness and falls at home. Patient has decreased oral intake.. Patient does have nausea. No chills or vomiting. No diarrhea. On admission patient was tachycardic and saturating at 96% on 2 L of oxygen via nasal cannula. Chest x-ray showed there is a left upper lobe and left lower lobe pneumonia which is mostly new compared to old exam. No heart failure seen. Laboratory data showed WBC 18.4 hemoglobin 15.8 and platelets 242 Sodium 136 potassium 3.9 chloride 100 bicarb is 24 BUN 19 and creatinine 0.92 and blood sugar is 125 Liver enzymes are not elevated. LDH 336 and CRP 21.8 troponin 0.031 and procalcitonin level is 0.19. Urinalysis is negative for infection COVID-19 PCR detected. 08/30/2022 Patient is currently resting in bed. Awake alert and oriented but lethargic and sleepy. Currently requiring 2 L oxygen via nasal cannula. Breathing status improved compared to yesterday. Otherwise patient has generalized weakness. Able to eat his breakfast this morning. No complaints of nausea vomiting or diarrhea. No abdominal pain. Patient has been afebrile. No cough or sputum production. Laboratory showed WBC count 23.0 hemoglobin 14.4 and platelets 254 Sodium 138 potassium 4.7 chloride 101 bicarb is 25.8 BUN 24.1 creatinine 1.1 and procalcitonin level was 0.19. Urinalysis is negative for infection. Patient is being Antibiotics for pneumonia and also on dexamethasone 6 mg IV push daily. Pulmonary is on board. Current medications reviewed. Objective - Vital Signs Vital signs: Vital Signs Temp 98.3 F 08/30/22 08:16 Pulse 83 08/30/22 08:16 Resp 18 08/30/22 08:16 BP 138/78 08/30/22 08:16 Pulse Ox 95 08/30/22 08:16 FiO2 Intake & Output 08/29/22 08/30/22 08/30/22 18:59 06:59 18:59 Output Total 0 350 Balance 0 -350 Output: Urine 0 350 Other: Voiding Method Urinal Urinal External Catheter External Catheter - Exam PHYSICAL EXAMINATION: Patient is lying in the bed comfortably, no acute distress, awake alert and oriented.Seems to be lethargic.. HEENT: Normocephalic. Neck is supple. Pupils reactive. Nostrils clear. Oral cavity is moist. Neck reveals no JVD, carotid bruits, or thyromegaly. CHEST EXAMINATION: Trachea is central. Symmetrical expansion. Bilateral diminished sounds. Nonlabored breathing.. CARDIAC: Normal S1, S2 with no gallops. No murmurs ABDOMEN: Soft. Bowel sounds present. Nontender. No organomegaly. No abdominal bruits. Extremities: reveal no edema. No clubbing or cyanosis Neurologically awake, alert, oriented x2-3 with well-coordinated movements. No gross focal deficits noted Skin: No rash or skin lesions. Psychiatric: Coperative. Nonsuicidal, Musculoskeletal: No joint swelling or deformity. Normal range of motion. - Labs CBC & Chem 7: 08/30/22 05:51 08/30/22 05:51 Labs: Abnormal Lab Results - Last 24 Hours (Table) 08/30/22 08/30/22 Range/Units 05:51 05:51 WBC 23.09 H (4.50-10.00) X 10*3/uL RDW 15.9 H (11.5-14.5) % BUN/Creatinine Ratio 21.61 H (12.00-20.00) Ratio C-Reactive Protein 31.70 H (0.00-0.80) mg/dL Microbiology - Last 24 Hours (Table) 08/28/22 17:00 Blood Culture Gram Stain - Preliminary Blood Blood Culture - Preliminary Coagulase Negative Staph 08/28/22 17:00 Blood Culture - Final Blood Assessment and Plan Assessment: Left upper and left lower lobe pneumonia and sepsis secondary to pneumonia Acute COVID-19 pneumonia-patient has not been vaccinated. Elevated inflammatory markers Acute hypoxic respiratory failure requiring oxygen at 2 L via nasal cannula. Generalized weakness and falls at home. Chronic atrial fibrillation/flutter on anticoagulation with Eliquis. Coronary disease history of stent placement GERD Hearing disorder/deafness Hypertension Hyperlipidemia Osteoarthritis Peripheral vascular disease with bilateral occluded SFA and bilateral popliteal arteries. History of gout DVT prophylaxis patient is already on full anticoagulation Plan: Patient will be continued on oxygen supplementation. Was given antibiotics Levaquin and azithromycin in the ER. Continue with ceftriaxone and azithromycin. Follow-up blood cultures. Due to hypoxia patient was started on dexamethasone 6 mg daily and continue with duo nebs and Symbicort. Continue supportive care with multivitamins and GI prophylaxis. Follow-up repeat CBC and BMP and inflammatory markers. Pulmonary is on board. Prognosis is guarded at this time. Time with Patient: Greater than 30
[2022-08-31] MEDS: methocarbamoL 750 MG TAB PO PRN (01:17)
[2022-08-31] MEDS: HYDROcodone/APAP 5-325MG 1 EACH TAB PO PRN ×3 (03:37→19:53)
--- NOTE | 2022-08-31 05:09 | P.CONS ---
History of Present Illness - Chief Complaint Medical debility - History of Present Illness I had the opportunity to see patient for inpatient rehab consultation with regard to medical debility. Patient admitted to hospitalist August 28 with generalized weakness and chills. History of recent covert pneumonia, discharged home and apparently fell. Seen by Dr. Zuniga for ICU care including left upper and lower lobe infiltrate. Head CT with 9 white matter and chronic changes. Chest x-ray with mild cardiomegaly in atypical infiltrate left lower lobe and left middle lobe. PT and OT prescribed. Previous functional history as elicited from patient: 81-year-old right-handed white male who is lives and 2 floor home with and daughter. and daughter do the cooking, laundry, driving. Patient independent with sitdown shower and gait with roller walker. PCP Dr. Samano. Review of Systems Review of systems: ENT: Denies sneezes or discharge. Eyes: Denies discharge or photophobia. Cardiac: Denies chest pain or palpitation. Pulmonary: Denies cough or shortness of breath. Gastrointestinal: Denies nausea, emesis, constipation, diarrhea. Genitourinary: Denies discharge or frequency. Musculoskeletal: Denies muscle or bone aches. Neurologic: General weakness. Endocrine: Denies shakes or sweats. Oncology: Denies cancers. Dermatologic: Denies rash, itching, pruritus. ALLERGY/immunology: Denies sneezes, rashes. Past Medical History Past Medical History: Atrial Flutter, Coronary Artery Disease (CAD), Heart Fail ure, COPD, GERD/Reflux, Hearing Disorder / Deafness, Hyperlipidemia, Hypertension, Osteoarthritis (OA), Renal Disease, Vascular Disorder Additional Past Medical History / Comment(s): hx. gout, hx. colon polyps, circulation problems in legs, slight decreased kidney function, shingles History of Any Multi-Drug Resistant Organisms: MRSA Year Discovered:: 02/14/22 MDRO Source:: Right Thigh Past Surgical History: Cholecystectomy, Heart Catheterization, Heart Catheterization With Stent Additional Past Surgical History / Comment(s): right bone graft to collar bone Past Anesthesia/Blood Transfusion Reactions: No Reported Reaction Date of Last Stent Placement:: 05/2020 Past Psychological History: No Psychological Hx Reported Smoking Status: Former smoker Past Alcohol Use History: None Reported Past Drug Use History: None Reported - Past Family History Mother Family Medical History: No Reported History Medications and Allergies Home Medications Medication Instructions Recorded Confirmed Type Atorvastatin [Lipitor] 20 mg PO DAILY 10/17/18 08/28/22 History Budesonide/Formoterol Fumarate 2 puff INHALATION RT-BID 10/17/18 08/28/22 History [Symbicort 160-4.5 Mcg Inhaler] Digoxin [Lanoxin] 125 mcg PO DAILY 10/17/18 08/28/22 History Apixaban [Eliquis] 2.5 mg PO BID 06/05/20 08/28/22 History Clopidogrel [Plavix] 75 mg PO DAILY #30 tab 06/09/20 08/28/22 Rx Acetaminophen Tab [Tylenol] 650 mg PO Q4HR PRN tab 08/02/20 08/28/22 Rx Albuterol Nebulized [Ventolin 2.5 mg INHALATION RT-Q6H PRN 08/28/22 08/28/22 History Nebulized] Furosemide [Lasix] 20 mg PO DAILY 08/28/22 08/28/22 History HYDROcodone/APAP 5-325MG [[place] 1 tab PO QID PRN 08/28/22 08/28/22 History 5-325] Ibuprofen [Motrin Ib] 600 mg PO TID PRN 08/28/22 08/28/22 History methocarbamoL [Methocarbamol] 750 mg PO TID PRN 08/28/22 08/28/22 History traMADol HCL 50 mg PO QID PRN 08/28/22 08/28/22 History Allergies Allergy/AdvReac Type Severity Reaction Status Date / Time Penicillins Allergy Anaphylaxis Verified 08/28/22 17:46 Iodinated Contrast Media AdvReac Diarrhea, Verified 08/28/22 17:46 [Iodinated Contrast- Oral RASH and IV Dye] Physical Exam Vitals: Vital Signs Temp Pulse Resp BP Pulse Ox 08/31/22 02:00 98.2 F 77 19 151/84 93 L 08/30/22 20:00 97.3 F L 64 19 133/83 92 L 08/30/22 14:00 98.8 F 44 L 18 116/66 93 L 08/30/22 08:16 98.3 F 83 18 138/78 95 Intake and Output 08/30/22 08/30/22 08/31/22 14:59 22:59 06:59 Other: Voiding Method Urinal Urinal External Catheter External Catheter # Voids 3 Skin: Atrophic, intact. General: Medium build and comfortable appearance. Head: Normocephalic, atraumatic. Eyes: Symmetric. Pupils equal round. Ears: Symmetric. Hearing within normal limits. Mouth: Clear. Neck: Supple. Carotid without bruit. Cardiac: Regular rate and rhythm. Lungs: Clear anteriorly and posteriorly. Abdomen: Soft active nontender. Extremities: Normal tone. Neurological: Mental status: Alert, cooperative, pleasant. Cranial nerves: Symmetric facial tone and trapezius. Motor: Active movement all 4 limbs. Arms at least antigravity in legs about antigravity. Sensation: Intact throughout. DTRs: Symmetric and equal throughout. Mobility: Did not attempt to sit or stand by myself this early a.m. Results CBC & Chem 7: 08/30/22 05:51 08/30/22 05:51 Labs: Abnormal Lab Results - Last 24 Hours (Table) 08/30/22 08/30/22 Range/Units 05:51 05:51 WBC 23.09 H (4.50-10.00) X 10*3/uL RDW 15.9 H (11.5-14.5) % Immature Gran # 0.31 H (0.00-0.04) X 10*3/uL Neutrophils # 19.26 H (1.80-7.70) X 10*3/uL Monocytes # 2.34 H (0.20-1.00) X 10*3/uL BUN/Creatinine Ratio 21.61 H (12.00-20.00) Ratio C-Reactive Protein 31.70 H (0.00-0.80) mg/dL Microbiology - Last 24 Hours (Table) 08/28/22 17:00 Blood Culture Gram Stain - Preliminary Blood Blood Culture - Preliminary Coagulase Negative Staph Assessment and Plan (1) COVID-19 Current Visit: Yes Status: Acute Code(s): U07.1 - COVID-19 SNOMED Code(s): 872022519 (2) Generalized weakness Current Visit: Yes Status: Acute Code(s): R53.1 - WEAKNESS SNOMED Code(s): 37724093 (3) SOB (shortness of breath) Current Visit: Yes Status: Acute Priority: High Code(s): R06.02 - SHORTNESS OF BREATH SNOMED Code(s): 247096844 Plan: Comments and plan: At this time will await PT and OT. Patient currently very weak and would not be able tolerate a full inpatient rehab program today. Will however continue to follow with yourself and review notes daily including Saturday a.m. Insurances of course will require PT and OT notes.
[2022-08-31] MEDS: ATORVASTATIN 20 MG TAB PO SCH (07:41)
[2022-08-31] MEDS: CLOPIDOGREL 75 MG TAB PO SCH (07:41)
[2022-08-31] MEDS: PANTOPRAZOLE 40 MG TABLET PO SCH (07:41)
[2022-08-31] MEDS: DIGOXIN 125 MCG TAB PO SCH (07:41)
[2022-08-31] MEDS: CHOLECALCIFEROL 25 MCG (1000 IU) TABLET PO SCH (07:41)
[2022-08-31] MEDS: ZINC SULFATE 220 MG CAP PO SCH (07:41)
[2022-08-31] MEDS: ASCORBIC ACID 500 MG TAB PO SCH (07:41)
[2022-08-31] MEDS: APIXABAN 2.5 MG TABLET PO SCH ×2 (07:41→19:52)
[2022-08-31] MEDS: AZITHROMYCIN 500 MG TAB PO SCH (07:42)
[2022-08-31] MEDS: ALBUTEROL HFA INHALER INHALATION SCH ×4 (07:59→20:36)
[2022-08-31] MEDS: SYMBICORT 160-4.5 MCG INHALER INHALATION SCH ×2 (08:02→20:36)
[2022-08-31 08:26] LABS: Basophils % (A) 0 %; Eosinophils % (A) 0 %; HCT 41.6 % (39.0-53.0); HGB 14.1 gm/dL (13.0-17.5); Lymphocytes # (A) 0.8 k/uL (1.0-4.8); Lymphocytes % (A) 4 %; MCH 31.2 pg (25.0-35.0); MCHC 33.8 g/dL (31.0-37.0); MCV 92.4 fL (80.0-100.0); Mean Platelet Volume 8.4; Monocytes % (A) 5 %; Neutrophils # (A) 18.7 k/uL (1.3-7.7); Neutrophils % (A) 90 %; Platelet Count 258 k/uL (150-450); RDW 14.5 % (11.5-15.5); WBC 20.8 k/uL (3.8-10.6)
[2022-08-31 08:42] LABS: African American GFR (CKD) >90 (>60 ml/min/1.73 sqM); Anion Gap 10 mmol/L; Blood Urea Nitrogen 26 mg/dL (9-20); Calcium 9.6 mg/dL (8.4-10.2); Carbon Dioxide 25 mmol/L (22-30); Chloride 99 mmol/L (98-107); Glucose 143 mg/dL (74-99); Non-African American GFR(CKD) 80 (>60 ml/min/1.73 sqM); Potassium 4.2 mmol/L (3.5-5.1); Sodium 134 mmol/L (137-145)
[2022-08-31] MEDS: DEXAMETHASONE SOD PHOSPHATE 10 MG/ML 1 ML VIAL IVP SCH (09:27)
--- NOTE | 2022-08-31 14:58 | P.PN ---
Subjective Progress Note Date: 08/31/22 81-year-old male, who presents to the emergency department, on August 28, complaining of generalized weakness, chills, and fatigue. The patient was tested for coronavirus, by nasal swab, and was positive. Patient was to be discharged to the [facility], but given the positive nasal swab for coronaviru s, the patient was admitted to the hospital. We were consulted because of the patient's shortness of breath, and cough. Currently, he's on 2 L of oxygen. He's not receiving any IV fluids. He is not manifesting any overt signs of respiratory distress. He has a history of atrial flutter, CAD, heart failure, COPD, GERD, hyperlipidemia, hypertension, and osteoarthritis, among other things. White count 23, hemoglobin 14.4, hematocrit 44.5, platelet count 254,000. Sodium 138, potassium 4.7, chlorides 101, CO2 26, anion gap 11, BUN 24, creatinine 1.1. The patient's chest x-ray shows evidence of left-sided pneumonia. The patient's pro-calcitonin level is 0.19. The patient is seen today 08/31/2022 in follow-up on the regular medical floor. He is currently sitting up at the bedside. Awake and alert in no acute distress. He is maintaining O2 saturations in the 90s on room air. No IV f luids. White count 20.8. Hemoglobin 14.1. Sodium 134. Potassium 4.2. BUN 26. Creatinine 0.88. Glucose 143. He is continued on vitamin supplements, anticoagulated with Eliquis, remains on Decadron. Blood culture with coag- negative staph. Currently on ceftriaxone. Objective - Vital Signs Vital signs: Vital Signs Temp 97.8 F 08/31/22 14:00 Pulse 67 08/31/22 14:00 Resp 16 08/31/22 14:00 BP 153/83 08/31/22 14:00 Pulse Ox 92 L 08/31/22 14:00 FiO2 Intake & Output 08/30/22 08/31/22 08/31/22 18:59 06:59 18:59 Output Total 600 Balance -600 Output: Urine 600 Other: Voiding Method Urinal Urinal Urinal External Catheter External Catheter External Catheter # Voids 3 - Exam GENERAL EXAM: Alert, pleasant 81-year-old male patient, on room air, comfortable in no apparent distress. HEAD: Normocephalic. EYES: Normal reaction of pupils, equal size. NOSE: Clear with pink turbinates. THROAT: No erythema or exudates. NECK: No masses, no JVD. CHEST: No chest wall deformity. LUNGS: Equal air entry with bilateral scattered rhonchi. CVS: S1 and S2 normal with no audible murmur, regular rhythm. ABDOMEN: No hepatosplenomegaly, normal bowel sounds, no guarding or rigidity. SPINE: No scoliosis or deformity SKIN: No rashes CENTRAL NERVOUS SYSTEM: No focal deficits, tone is normal in all 4 extremities. EXTREMITIES: There is no peripheral edema. No clubbing, no cyanosis. Peripheral pulses are intact. - Labs CBC & Chem 7: 08/31/22 07:34 08/31/22 07:34 Labs: Abnormal Lab Results - Last 24 Hours (Table) 08/30/22 08/31/22 08/31/22 Range/Units 05:51 07:34 07:34 WBC 20.8 H (3.8-10.6) k/uL Immature Gran # 0.31 H (0.00-0.04) X 10*3/uL Neutrophils # 19.26 H 18.7 H (1.80-7.70) X 10*3/uL Lymphocytes # 0.8 L (1.0-4.8) k/uL Monocytes # 2.34 H (0.20-1.00) X 10*3/uL Sodium 134 L (137-145) mmol/L BUN 26 H (9-20) mg/dL Glucose 143 H (74-99) mg/dL Assessment and Plan Assessment: Acute hypoxemic respiratory failure secondary to left-sided pneumonia. History of coronavirus infection, and possible coronavirus associated pneumonia. History of coronary artery disease, with previous stenting. History of atrial flutter. Anticoagulated with Eliquis History of CHF. History of COPD, from previous tobacco use. History of hyperlipidemia. History of hypertension. History of deafness. History of GERD. History of gout. Multiple other medical problems and comorbidities. Plan: The patient was seen and evaluated Labs, medications reviewed Stable from the pulmonary standpoint May need subacute rehabilitation I have personally seen and examined the patient, performed the documentation and the assessment and plan as written. Number of minutes spent on the visit: 10.
--- NOTE | 2022-08-31 18:21 | P.PN ---
Subjective Progress Note Date: 08/31/22 81-year-old male with a known history of atrial flutter, coronary artery disease with history of stent placement, hearing disorder/deafness, hypertension, hyperlipidemia, cellulitis, peripheral vascular disease and prior history of smoking presents to ER with complaints of generalized weakness and chills and shortness of breath. Patient was diagnosed with COVID-19 infection at outside hospital. Plan was to discharge him to snf but given COVID- 19 positive status it was felt frequently discharged home. Patient has been having generalized weakness and falls at home. Patient has decreased oral intake.. Patient does have nausea. No chills or vomiting. No diarrhea. On admission patient was tachycardic and saturating at 96% on 2 L of oxygen via nasal cannula. Chest x-ray showed there is a left upper lobe and left lower lobe pneumonia which is mostly new compared to old exam. No heart failure seen. Laboratory data showed WBC 18.4 hemoglobin 15.8 and platelets 242 Sodium 136 potassium 3.9 chloride 100 bicarb is 24 BUN 19 and creatinine 0.92 and blood sugar is 125 Liver enzymes are not elevated. LDH 336 and CRP 21.8 troponin 0.031 and procalcitonin level is 0.19. Urinalysis is negative for infection COVID-19 PCR detected. Objective - Vital Signs Vital signs: Vital Signs Temp 97.4 F L 08/31/22 08:00 Pulse 58 L 08/31/22 08:00 Resp 17 08/31/22 08:00 BP 161/84 08/31/22 08:00 Pulse Ox 93 L 08/31/22 08:00 FiO2 Intake & Output 08/30/22 08/31/22 08/31/22 18:59 06:59 18:59 Output Total 600 Balance -600 Output: Urine 600 Other: Voiding Method Urinal Urinal Urinal External Catheter External Catheter External Catheter # Voids 3 - Exam HEENT: Normocephalic. Neck is supple. Pupils reactive. Nostrils clear. Oral cavity is moist. Neck reveals no JVD, carotid bruits, or thyromegaly. CHEST EXAMINATION: Trachea is central. Symmetrical expansion. Bilateral diminished sounds. Nonlabored breathing.. CARDIAC: Normal S1, S2 with no gallops. No murmurs ABDOMEN: Soft. Bowel sounds present. Nontender. No organomegaly. No abdominal bruits. Extremities: reveal no edema. No clubbing or cyanosis Neurologically awake, alert, oriented x2-3 with well-coordinated movements. No gross focal deficits noted Skin: No rash or skin lesions. Psychiatric: Coperative. Nonsuicidal, Musculoskeletal: No joint swelling or deformity. Normal range of motion. - Labs CBC & Chem 7: 08/31/22 07:34 08/31/22 07:34 Labs: Abnormal Lab Results - Last 24 Hours (Table) 08/30/22 08/31/22 08/31/22 Range/Units 05:51 07:34 07:34 WBC 20.8 H (3.8-10.6) k/uL Immature Gran # 0.31 H (0.00-0.04) X 10*3/uL Neutrophils # 19.26 H 18.7 H (1.80-7.70) X 10*3/uL Lymphocytes # 0.8 L (1.0-4.8) k/uL Monocytes # 2.34 H (0.20-1.00) X 10*3/uL Sodium 134 L (137-145) mmol/L BUN 26 H (9-20) mg/dL Glucose 143 H (74-99) mg/dL Assessment and Plan Assessment: Left upper and left lower lobe pneumonia and sepsis secondary to pneumonia Acute COVID-19 pneumonia-patient has not been vaccinated. Elevated inflammatory markers Acute hypoxic respiratory failure requiring oxygen at 2 L via nasal cannula. Generalized weakness and falls at home. Chronic atrial fibrillation/flutter on anticoagulation with Eliquis. Coronary disease history of stent placement GERD Hearing disorder/deafness Hypertension Hyperlipidemia Osteoarthritis Peripheral vascular disease with bilateral occluded SFA and bilateral popliteal arteries. History of gout DVT prophylaxis patient is already on full anticoagulation Plan: Patient will be continued on oxygen supplementation. Was given antibiotics Levaquin and azithromycin in the ER. Continue with ceftriaxone and azithromycin. Follow-up blood cultures. Due to hypoxia patient was started on dexamethasone 6 mg daily and continue with duo nebs and Symbicort. Continue supportive care with multivitamins and GI prophylaxis. Follow-up repeat CBC and BMP and inflammatory markers. Pulmonary is on board. Prognosis is guarded at this time.
[2022-08-31] MEDS: ONDANSETRON 4 MG/2 ML VIAL IVP PRN (22:54)
[2022-09-01] MEDS: HYDROcodone/APAP 5-325MG 1 EACH TAB PO PRN ×4 (03:01→20:46)
[2022-09-01] MEDS: methocarbamoL 750 MG TAB PO PRN ×2 (06:11→23:54)
[2022-09-01] MEDS: ALBUTEROL HFA INHALER INHALATION SCH ×4 (07:38→20:21)
[2022-09-01] MEDS: SYMBICORT 160-4.5 MCG INHALER INHALATION SCH ×2 (07:38→20:21)
[2022-09-01] MEDS: APIXABAN 2.5 MG TABLET PO SCH ×2 (08:13→20:45)
[2022-09-01] MEDS: DIGOXIN 125 MCG TAB PO SCH (08:13)
[2022-09-01] MEDS: ATORVASTATIN 20 MG TAB PO SCH (08:14)
[2022-09-01] MEDS: ZINC SULFATE 220 MG CAP PO SCH (08:14)
[2022-09-01] MEDS: CLOPIDOGREL 75 MG TAB PO SCH (08:14)
[2022-09-01] MEDS: CHOLECALCIFEROL 25 MCG (1000 IU) TABLET PO SCH (08:14)
[2022-09-01] MEDS: ASCORBIC ACID 500 MG TAB PO SCH (08:14)
[2022-09-01] MEDS: PANTOPRAZOLE 40 MG TABLET PO SCH (08:14)
[2022-09-01] MEDS: DEXAMETHASONE SOD PHOSPHATE 10 MG/ML 1 ML VIAL IVP SCH (08:54)
--- NOTE | 2022-09-01 13:30 | P.PN ---
Subjective Progress Note Date: 09/01/22 81-year-old male, who presents to the emergency department, on August 28, complaining of generalized weakness, chills, and fatigue. The patient was tested for coronavirus, by nasal swab, and was positive. Patient was to be discharged to the senior care, but given the positive nasal swab for coronaviru s, the patient was admitted to the hospital. We were consulted because of the patient's shortness of breath, and cough. Currently, he's on 2 L of oxygen. He's not receiving any IV fluids. He is not manifesting any overt signs of respiratory distress. He has a history of atrial flutter, CAD, heart failure, COPD, GERD, hyperlipidemia, hypertension, and osteoarthritis, among other things. White count 23, hemoglobin 14.4, hematocrit 44.5, platelet count 254,000. Sodium 138, potassium 4.7, chlorides 101, CO2 26, anion gap 11, BUN 24, creatinine 1.1. The patient's chest x-ray shows evidence of left-sided pneumonia. The patient's pro-calcitonin level is 0.19. The patient is seen today 08/31/2022 in follow-up on the regular medical floor. He is currently sitting up at the bedside. Awake and alert in no acute distress. He is maintaining O2 saturations in the 90s on room air. No IV f luids. White count 20.8. Hemoglobin 14.1. Sodium 134. Potassium 4.2. BUN 26. Creatinine 0.88. Glucose 143. He is continued on vitamin supplements, anticoagulated with Eliquis, remains on Decadron. Blood culture with coag- negative staph. Currently on ceftriaxone. The patient is seen today 09/01/2022 in follow-up on the regular medical floor. He is awake and alert in no acute distress. Maintaining good O2 saturations in the 90s on 2 L/m per nasal cannula. Afebrile. He is continued on Symbicort, albuterol, Decadron and vitamin supplements. Anticoagulated with Eliquis. Remains on antibiotics in the form of ceftriaxone. Follow-up chest x-ray in a.m. Objective - Vital Signs Vital signs: Vital Signs Temp 97.7 F 09/01/22 05:20 Pulse 51 L 09/01/22 08:00 Resp 20 09/01/22 08:00 BP 193/92 09/01/22 05:20 Pulse Ox 91 L 09/01/22 05:20 FiO2 Intake & Output 08/31/22 09/01/22 09/01/22 18:59 06:59 18:59 Output Total 400 Balance -400 Output: Urine 400 Other: Voiding Method Urinal Urinal External Catheter External Catheter # Voids 4 1 - Exam GENERAL EXAM: Alert, pleasant 81-year-old male patient, on 2 L nasal cannula, comfortable in no apparent distress. HEAD: Normocephalic. EYES: Normal reaction of pupils, equal size. NOSE: Clear with pink turbinates. THROAT: No erythema or exudates. NECK: No masses, no JVD. CHEST: No chest wall deformity. LUNGS: Equal air entry with bilateral scattered rhonchi. CVS: S1 and S2 normal with no audible murmur, regular rhythm. ABDOMEN: No hepatosplenomegaly, normal bowel sounds, no guarding or rigidity. SPINE: No scoliosis or deformity SKIN: No rashes CENTRAL NERVOUS SYSTEM: No focal deficits, tone is normal in all 4 extremities. EXTREMITIES: There is no peripheral edema. No clubbing, no cyanosis. Peripheral pulses are intact. - Labs CBC & Chem 7: 08/31/22 07:34 08/31/22 07:34 Labs: Microbiology - Last 24 Hours (Table) 08/28/22 17:00 Blood Culture Gram Stain - Final Blood Blood Culture - Final Staph hominis sub sp. hominis Assessment and Plan Assessment: Acute hypoxemic respiratory failure secondary to left-sided pneumonia. History of coronavirus infection, and possible coronavirus associated pneumonia. History of coronary artery disease, with previous stenting. History of atrial flutter. Anticoagulated with Eliquis History of CHF. History of COPD, from previous tobacco use. History of hyperlipidemia. History of hypertension. History of deafness. History of GERD. History of gout. Multiple other medical problems and comorbidities. Plan: The patient was seen and evaluated Medications reviewed Stable from the pulmonary standpoint Titrate the FiO2 as tolerated Remains on ceftriaxone Follow-up chest x-ray in a.m. May need subacute rehabilitation, possibly [facility] I have personally seen and examined the patient, performed the documentation and the assessment and plan as written. Number of minutes spent on the visit: 10.
--- NOTE | 2022-09-01 16:53 | P.PN ---
Subjective Progress Note Date: 09/01/22 Principal diagnosis: Acute hypoxemic respiratory failure Left-sided pneumonia History of recent COVID-19 infection and associated pneumonia 81-year-old male with a known history of atrial flutter, coronary artery disease with history of stent placement, hearing disorder/deafness, hypertension, hyperlipidemia, cellulitis, peripheral vascular disease and prior history of smoking presents to ER with complaints of generalized weakness and chills and shortness of breath. Patient was diagnosed with COVID-19 infection at outside hospital. Plan was to discharge him to correction but given COVID- 19 positive status it was felt frequently discharged home. Patient has been having generalized weakness and falls at home. Patient has decreased oral int samantha.. Patient does have nausea. No chills or vomiting. No diarrhea. On admission patient was tachycardic and saturating at 96% on 2 L of oxygen via nasal cannula. Chest x-ray showed there is a left upper lobe and left lower lobe pneumonia which is mostly new compared to old exam. No heart failure seen. Laboratory data showed WBC 18.4 hemoglobin 15.8 and platelets 242 Sodium 136 potassium 3.9 chloride 100 bicarb is 24 BUN 19 and creatinine 0.92 and blood sugar is 125 Liver enzymes are not elevated. LDH 336 and CRP 21.8 troponin 0.031 and procalcitonin level is 0.19. Urinalysis is negative for infection COVID-19 PCR detected. 09/01/2022 Patient is seen and evaluated in follow-up on the regular medical floor. He is awake and alert in no acute distress. Maintaining good O2 saturations in the 90s on 2 L/m per nasal cannula. Afebrile. He is continued on Symbicort, albuterol, Decadron and vitamin supplements. Anticoagulated with Eliquis. Remains on antibiotics in the form of ceftriaxone. Follow-up chest x-ray in a.m. Pulmonary on board and recommending to continue with ceftriaxone; patient awaits placement to subacute rehab Objective - Vital Signs Vital signs: Vital Signs Temp 97.7 F 09/01/22 05:20 Pulse 51 L 09/01/22 08:00 Resp 20 09/01/22 08:00 BP 193/92 09/01/22 05:20 Pulse Ox 91 L 09/01/22 05:20 FiO2 Intake & Output 08/31/22 09/01/22 09/01/22 18:59 06:59 18:59 Output Total 400 Balance -400 Output: Urine 400 Other: Voiding Method Urinal Urinal External Catheter External Catheter # Voids 4 1 - Exam HEENT: Normocephalic. Neck is supple. Pupils reactive. Nostrils clear. Oral cavity is moist. Neck reveals no JVD, carotid bruits, or thyromegaly. CHEST EXAMINATION: Trachea is central. Symmetrical expansion. Bilateral diminished sounds. Nonlabored breathing.. CARDIAC: Normal S1, S2 with no gallops. No murmurs ABDOMEN: Soft. Bowel sounds present. Nontender. No organomegaly. No abdominal bruits. Extremities: reveal no edema. No clubbing or cyanosis Neurologically awake, alert, oriented x2-3 with well-coordinated movements. No gross focal deficits noted Skin: No rash or skin lesions. Psychiatric: Coperative. Nonsuicidal, Musculoskeletal: No joint swelling or deformity. Normal range of motion. - Labs CBC & Chem 7: 08/31/22 07:34 08/31/22 07:34 Labs: Microbiology - Last 24 Hours (Table) 08/28/22 17:00 Blood Culture Gram Stain - Final Blood Blood Culture - Final Staph hominis sub sp. hominis Assessment and Plan Assessment: Left upper and left lower lobe pneumonia and sepsis secondary to pneumonia Acute COVID-19 pneumonia-patient has not been vaccinated. Elevated inflammatory markers Acute hypoxic respiratory failure requiring oxygen at 2 L via nasal cannula. Generalized weakness and falls at home. Chronic atrial fibrillation/flutter on anticoagulation with Eliquis. Coronary disease history of stent placement GERD Hearing disorder/deafness Hypertension Hyperlipidemia Osteoarthritis Peripheral vascular disease with bilateral occluded SFA and bilateral popliteal arteries. History of gout DVT prophylaxis patient is already on full anticoagulation Plan: Patient will be continued on oxygen supplementation. Was given antibiotics Levaquin and azithromycin in the ER. Continue with ceftriaxone and azithromycin . Follow-up blood cultures. Due to hypoxia patient was started on dexamethasone 6 mg daily and continue with duo nebs and Symbicort. Continue supportive care with multivitamins and GI prophylaxis. Follow-up repeat CBC and BMP and inflammatory markers. Pulmonary is on board. Prognosis is guarded at this time.
[2022-09-02] MEDS: HYDROcodone/APAP 5-325MG 1 EACH TAB PO PRN ×4 (02:14→19:03)
[2022-09-02] MEDS: ALBUTEROL HFA INHALER INHALATION SCH ×4 (07:19→20:28)
[2022-09-02] MEDS: SYMBICORT 160-4.5 MCG INHALER INHALATION SCH ×2 (07:19→20:28)
--- NOTE | 2022-09-02 07:44 | XR ---
EXAMINATION TYPE: XR chest 1V portable DATE OF EXAM: 09/02/2022 COMPARISON: 08/30/2022 INDICATION: Pneumonia TECHNIQUE: Single frontal view of the chest is obtained. FINDINGS: The heart size is normal. The pulmonary vasculature is upper limits of normal. Diffuse infiltrates through the left perihilar and lower lung field. Findings are similar to comparis on. Mild increased lung markings through the right lung. Differential diagnosis could include some mi ld pulmonary edema. IMPRESSION: 1. Diffuse infiltrates in the left lung can be compatible with pneumonia. 2. Mild increased lung markings noted on the right are nonspecific. Consider some early volume overlo ad or pulmonary edema. Pneumonia should be considered.
[2022-09-02] MEDS: CLOPIDOGREL 75 MG TAB PO SCH (07:48)
[2022-09-02] MEDS: BENZONATATE 100 MG CAP PO SCH ×3 (07:48→21:32)
[2022-09-02] MEDS: CHOLECALCIFEROL 25 MCG (1000 IU) TABLET PO SCH (07:48)
[2022-09-02] MEDS: APIXABAN 2.5 MG TABLET PO SCH ×2 (07:48→21:32)
[2022-09-02] MEDS: ATORVASTATIN 20 MG TAB PO SCH (07:49)
[2022-09-02] MEDS: ASCORBIC ACID 500 MG TAB PO SCH (07:49)
[2022-09-02] MEDS: ZINC SULFATE 220 MG CAP PO SCH (07:49)
[2022-09-02] MEDS: PANTOPRAZOLE 40 MG TABLET PO SCH (07:49)
[2022-09-02] MEDS: DIGOXIN 125 MCG TAB PO SCH (08:25)
[2022-09-02 09:23] LABS: HCT 41.9 % (39.6-50.0); HGB 13.6 g/dL (13.0-17.0); MCH 29.8 pg (27.0-32.0); MCHC 32.5 g/dL (32.0-37.0); MCV 91.7 fL (80.0-97.0); Mean Platelet Volume 10.4 fL (9.5-12.2); NRBC Per 100 WBC 0 /100 WBCS (0.0-0.0); Platelet Count 291 X 10*3/uL (140-440); RBC 4.57 X 10*6/uL (4.40-5.60); RDW 15.2 % (11.5-14.5)
[2022-09-02] MEDS: DEXAMETHASONE SOD PHOSPHATE 10 MG/ML 1 ML VIAL IVP SCH (09:42)
[2022-09-02 09:57] LABS: Basophils # (A) 0.08 X 10*3/uL (0.00-0.10); Basophils % (A) 0.3 %; Eosinophils # (A) 0 X 10*3/uL (0.04-0.35); Eosinophils % (A) 0 %; Immature Grans, Automated 2.5 %; Lymphocytes # (A) 1.59 X 10*3/uL (0.90-5.00); Lymphocytes % (A) 6.5 %; Monocytes # (A) 1.44 X 10*3/uL (0.20-1.00); Monocytes % (A) 5.9 %; Neutrophils # (A) 20.58 X 10*3/uL (1.80-7.70); Neutrophils % (A) 84.8 %; RBC Morphology NORMAL
--- NOTE | 2022-09-02 10:28 | P.PN ---
Subjective Progress Note Date: 09/02/22 Principal diagnosis: Shortness of breath. 81-year-old male, who presents to the emergency department, on August 28, complaining of generalized weakness, chills, and fatigue. The patient was tested for coronavirus, by nasal swab, and was positive. Patient was to be discharged to the shelter, but given the positive nasal swab for coronavirus, the patient was admitted to the hospital. We were consulted because of the patient's shortness of breath, and cough. Currently, he's on 2 L of oxygen. He's not receiving any IV fluids. He is not manifesting any overt signs of respiratory distress. He has a history of atrial flutter, CAD, heart failure, COPD, GERD, hyperlipidemia, hypertension, and osteoarthritis, among other things. White count 23, hemoglobin 14.4, hematocrit 44.5, platelet count 254,000. Sodium 138, potassium 4.7, chlorides 101, CO2 26, anion gap 11, BUN 24, creatinine 1.1. The patient's chest x-ray shows evidence of left-sided pneumonia. The patient's pro-calcitonin level is 0.19. The patient is seen today 08/31/2022 in follow-up on the regular medical floor. He is currently sitting up at the bedside. Awake and alert in no acute distres s. He is maintaining O2 saturations in the 90s on room air. No IV fluids. White count 20.8. Hemoglobin 14.1. Sodium 134. Potassium 4.2. BUN 26. Creatinine 0.88. Glucose 143. He is continued on vitamin supplements, anticoagulated with Eliquis, remains on Decadron. Blood culture with coag-n egative staph. Currently on ceftriaxone. The patient is seen today 09/01/2022 in follow-up on the regular medical floor. He is awake and alert in no acute distress. Maintaining good O2 saturations in the 90s on 2 L/m per nasal cannula. Afebrile. He is continued on Symbicort, albuterol, Decadron and vitamin supplements. Anticoagulated with Eliquis. Remains on antibiotics in the form of ceftriaxone. Follow-up chest x-ray in a.m. Progress note dated 09/02/2022. The patient is seen in room 456. He is currently on 2 L. He's not receiving any IV fluids. The patient does complain about his cough. I had some Tessalon Perles, 200 mg, 3 times a day. He denies any significant shortness of breath. He is not producing any phlegm when he coughs. He denies any fever or chills. He denies any chest pain or chest discomfort. White count 24.3, hemoglobin 13.6, hematocrit 41.9, and platelet count 291,000. Blood cultures are positive for staph hominis. Chest x-ray is showing some patchy infiltrates in the left lung, which could be pneumonia and/or atelectasis. Objective - Vital Signs Vital signs: Vital Signs Temp 98.1 F 09/02/22 08:00 Pulse 102 H 09/02/22 08:00 Resp 16 09/02/22 08:00 BP 118/56 09/02/22 08:00 Pulse Ox 98 09/02/22 08:00 FiO2 Intake & Output 09/01/22 09/02/22 09/02/22 18:59 06:59 18:59 Intake Total 200 Output Total 900 Balance 200 -900 Intake: Oral 200 Output: Urine 900 Other: Voiding Method Urinal Urinal Urinal External Catheter # Voids 3 - Exam No acute distress, oriented 3. Currently on 2 L. No conversational dyspnea, use of accessory muscles, or audible wheezing. HEENT examination is grossly unremarkable. Neck supple. Full range of motion. No adenopathy thyromegaly or neck vein distention. Cardiovascular examination reveals regular rhythm rate. S1-S2 normal. No S3 or S4. No discernible murmur noted. Heart sounds are distant. Heart rate 79 bpm. Lungs reveal scattered bilateral rhonchi. No wheezes, or crackles. Breath so unds equal bilaterally. 2 L saturation is 98%. Abdomen soft bowel sounds are heard. No masses or tenderness. Extremities are intact. No cyanosis clubbing or edema. Skin is without rash or lesion. Neurologic examination is brief but nonfocal. - Labs CBC & Chem 7: 09/02/22 03:56 08/31/22 07:34 Labs: Abnormal Lab Results - Last 24 Hours (Table) 09/02/22 Range/Units 03:56 WBC 24.30 H (4.50-10.00) X 10*3/uL RDW 15.2 H (11.5-14.5) % Immature Gran # 0.61 H (0.00-0.04) X 10*3/uL Neutrophils # 20.58 H (1.80-7.70) X 10*3/uL Monocytes # 1.44 H (0.20-1.00) X 10*3/uL Eosinophils # 0 L (0.04-0.35) X 10*3/uL Assessment and Plan Assessment: Acute hypoxemic respiratory failure secondary to left-sided pneumonia. History of coronavirus infection, and possible coronavirus associated pneumonia. History of coronary artery disease, with previous stenting. History of atrial flutter. History of CHF. History of COPD, from previous tobacco use. History of hyperlipidemia. History of hypertension. History of deafness. History of GERD. History of gout. Multiple other medical problems and comorbidities. Plan: Plan dated 08/30/2022. The patient is currently an albuterol inhaler, and Symbicort. In addition, he is getting vitamin C, vitamin D3, and zinc. The patient is ready on a factor X a inhibitor because of his atrial flutter. The patient is also on Rocephin, and is getting Zithromax. This is because he may in fact have only community- acquired pneumonia. The patient may or may not have coronavirus associated pneumonia. In my opinion, he is not behaving that way at this time. Finally, the patient's getting Decadron 6 mg a day. We will continue to follow make recommendations where appropriate. Labs, x-rays, and medications are all reviewed. The patient appears to be relatively stable at this time. Plan dated 09/02/2022. The patient appears to be improving. He continues on an albuterol inhaler, vitamin C, vitamin D3, and zinc, Symbicort, Decadron, and Rocephin. In addition , I did add some Tessalon Perles, 200 mg 3 times a day for his cough. His cough is nonproductive. He denies any shortness of breath. His 2 L saturation is 98%. Labs, x-rays, and medications are all reviewed. Time with Patient: Less than 30
[2022-09-02 11:12] LABS: African American GFR (CKD) 96.4 (60.0-200.0); Anion Gap 9.2 mmol/L (10.00-18.00); BUN/Creat Ratio 30.5 Ratio (12.00-20.00); Blood Urea Nitrogen 24.4 mg/dL (9.0-27.0); Calcium 9.7 mg/dL (8.7-10.3); Carbon Dioxide 26.8 mmol/L (20.0-27.5); Non-African American GFR(CKD) 83.2 (60.0-200.0); Potassium 5.1 mmol/L (3.5-5.5)
--- NOTE | 2022-09-02 18:22 | P.PN ---
Subjective Progress Note Date: 09/02/22 Principal diagnosis: Acute hypoxemic respiratory failure Left-sided pneumonia History of recent COVID-19 infection and associated pneumonia 81-year-old male with a known history of atrial flutter, coronary artery disease with history of stent placement, hearing disorder/deafness, hypertension, hyperlipidemia, cellulitis, peripheral vascular disease and prior history of smoking presents to ER with complaints of generalized weakness and chills and shortness of breath. Patient was diagnosed with COVID-19 infection at outside hospital. Plan was to discharge him to [facility] but given COVID- 19 positive status it was felt frequently discharged home. Patient has been having generalized weakness and falls at home. Patient has decreased oral int samantha.. Patient does have nausea. No chills or vomiting. No diarrhea. On admission patient was tachycardic and saturating at 96% on 2 L of oxygen via nasal cannula. Chest x-ray showed there is a left upper lobe and left lower lobe pneumonia which is mostly new compared to old exam. No heart failure seen. Laboratory data showed WBC 18.4 hemoglobin 15.8 and platelets 242 Sodium 136 potassium 3.9 chloride 100 bicarb is 24 BUN 19 and creatinine 0.92 and blood sugar is 125 Liver enzymes are not elevated. LDH 336 and CRP 21.8 troponin 0.031 and procalcitonin level is 0.19. Urinalysis is negative for infection COVID-19 PCR detected. 09/01/2022 Patient is seen and evaluated in follow-up on the regular medical floor. He is awake and alert in no acute distress. Maintaining good O2 saturations in the 90s on 2 L/m per nasal cannula. Afebrile. He is continued on Symbicort, albuterol, Decadron and vitamin supplements. Anticoagulated with Eliquis. Remains on antibiotics in the form of ceftriaxone. Follow-up chest x-ray in a.m. Pulmonary on board and recommending to continue with ceftriaxone; patient awaits placement to subacute rehab 09/02/2022 Patient is seen and evaluated and discussed with nursing staff; history of fall with laceration back of head with albert in place; patient does have occipital hematoma; plan is to take the albert out and wound care consult He is currently on 2 L. He's not receiving any IV fluids. The patient does complain about his cough. I had some Tessalon Perles, 200 mg, 3 times a day. He denies any significant shortness of breath. He is not producing any phlegm when he coughs. He denies any fever or chills. He denies any chest pain or chest discomfort. White count 24.3, hemoglobin 13.6, hematocrit 41.9, and platelet count 291,000. Blood cultures are positive for staph hominis. Chest x-ray is showing some patchy infiltrates in the left lung, which could be pneumonia and/or atelectasis. He continues on an albuterol inhaler, vitamin C, vitamin D3, and zinc, Symbicort, Decadron, and Rocephin. Discharge planning in progress Objective - Vital Signs Vital signs: Vital Signs Temp 97.5 F L 09/02/22 08:00 Pulse 45 L 09/02/22 08:00 Resp 19 09/02/22 08:00 BP 150/77 09/02/22 08:00 Pulse Ox 93 L 09/02/22 08:00 FiO2 Intake & Output 09/01/22 09/02/22 09/02/22 18:59 06:59 18:59 Intake Total 200 Output Total 900 Balance 200 -900 Intake: Oral 200 Output: Urine 900 Other: Voiding Method Urinal Urinal Urinal External Catheter # Voids 3 - Exam HEENT: Normocephalic. Neck is supple. Pupils reactive. Nostrils clear. Oral cavity is moist. Neck reveals no JVD, carotid bruits, or thyromegaly. CHEST EXAMINATION: Trachea is central. Symmetrical expansion. Bilateral diminished sounds. Nonlabored breathing.. CARDIAC: Normal S1, S2 with no gallops. No murmurs ABDOMEN: Soft. Bowel sounds present. Nontender. No organomegaly. No abdominal bruits. Extremities: reveal no edema. No clubbing or cyanosis Neurologically awake, alert, oriented x2-3 with well-coordinated movements. No gross focal deficits noted Skin: No rash or skin lesions. Psychiatric: Coperative. Nonsuicidal, Musculoskeletal: No joint swelling or deformity. Normal range of motion. - Labs CBC & Chem 7: 09/02/22 03:56 09/02/22 03:56 Labs: Abnormal Lab Results - Last 24 Hours (Table) 09/02/22 09/02/22 Range/Units 03:56 03:56 WBC 24.30 H (4.50-10.00) X 10*3/uL RDW 15.2 H (11.5-14.5) % Immature Gran # 0.61 H (0.00-0.04) X 10*3/uL Neutrophils # 20.58 H (1.80-7.70) X 10*3/uL Monocytes # 1.44 H (0.20-1.00) X 10*3/uL Eosinophils # 0 L (0.04-0.35) X 10*3/uL Sodium 133 L (135-145) mmol/L Anion Gap 9.20 L (10.00-18.00) mmol/L BUN/Creatinine Ratio 30.50 H (12.00-20.00) Ratio Assessment and Plan Assessment: Left upper and left lower lobe pneumonia and sepsis secondary to pneumonia Acute COVID-19 pneumonia-patient has not been vaccinated. Elevated inflammatory markers Acute hypoxic respiratory failure requiring oxygen at 2 L via nasal cannula. Generalized weakness and falls at home. Chronic atrial fibrillation/flutter on anticoagulation with Eliquis. Coronary disease history of stent placement GERD Hearing disorder/deafness Hypertension Hyperlipidemia Osteoarthritis Peripheral vascular disease with bilateral occluded SFA and bilateral popliteal arteries. History of gout DVT prophylaxis patient is already on full anticoagulation Plan: Patient will be continued on oxygen supplementation. Was given antibiotics Levaquin and azithromycin in the ER. Continue with ceftriaxone and azithromycin. Follow-up blood cultures. Due to hypoxia patient was started on dexamethasone 6 mg daily and continue with duo nebs and Symbicort. Continue supportive care with multivitamins and GI prophylaxis. Follow-up repeat CBC and BMP and inflammatory markers. Pulmonary is on board. Prognosis is guarded at this time.
[2022-09-02] MEDS: methocarbamoL 750 MG TAB PO PRN (21:33)
[2022-09-03] MEDS: ASCORBIC ACID 500 MG TAB PO SCH (07:29)
[2022-09-03] MEDS: DIGOXIN 125 MCG TAB PO SCH (07:29)
[2022-09-03] MEDS: BENZONATATE 100 MG CAP PO SCH ×3 (07:29→20:49)
[2022-09-03] MEDS: ZINC SULFATE 220 MG CAP PO SCH (07:29)
[2022-09-03] MEDS: APIXABAN 2.5 MG TABLET PO SCH ×2 (07:30→20:49)
[2022-09-03] MEDS: DEXAMETHASONE SOD PHOSPHATE 10 MG/ML 1 ML VIAL IVP SCH (07:30)
[2022-09-03] MEDS: ATORVASTATIN 20 MG TAB PO SCH (07:30)
[2022-09-03] MEDS: CHOLECALCIFEROL 25 MCG (1000 IU) TABLET PO SCH (07:30)
[2022-09-03] MEDS: PANTOPRAZOLE 40 MG TABLET PO SCH (07:30)
[2022-09-03] MEDS: CLOPIDOGREL 75 MG TAB PO SCH (07:30)
[2022-09-03] MEDS: HYDROcodone/APAP 5-325MG 1 EACH TAB PO PRN ×2 (07:35→16:54)
[2022-09-03] MEDS: ALBUTEROL HFA INHALER INHALATION SCH ×4 (08:54→20:41)
[2022-09-03] MEDS: SYMBICORT 160-4.5 MCG INHALER INHALATION SCH ×2 (08:54→20:41)
[2022-09-03] MEDS ORDERED: hydrALAZINE HCL 25 MG TAB PO PRN (09:03)
[2022-09-03 09:35] LABS: Basophils # (A) 0.11 X 10*3/uL (0.00-0.10); Basophils % (A) 0.5 %; Eosinophils # (A) 0.01 X 10*3/uL (0.04-0.35); Eosinophils % (A) 0 %; HGB 14.2 g/dL (13.0-17.0); Immature Grans, Automated 4.2 %; Lymphocytes # (A) 1.58 X 10*3/uL (0.90-5.00); Lymphocytes % (A) 7.5 %; MCH 29.2 pg (27.0-32.0); MCHC 32.3 g/dL (32.0-37.0); MCV 90.5 fL (80.0-97.0); Mean Platelet Volume 10.4 fL (9.5-12.2); Monocytes # (A) 1.14 X 10*3/uL (0.20-1.00); Monocytes % (A) 5.4 %; NRBC Per 100 WBC 0 /100 WBCS (0.0-0.0); Neutrophils # (A) 17.34 X 10*3/uL (1.80-7.70); Neutrophils % (A) 82.4 %; Platelet Count 322 X 10*3/uL (140-440); RBC 4.86 X 10*6/uL (4.40-5.60); WBC 21.07 X 10*3/uL (4.50-10.00)
[2022-09-03 09:36] LABS: African American GFR (CKD) 101.9 (60.0-200.0); BUN/Creat Ratio 36.29 Ratio (12.00-20.00); Blood Urea Nitrogen 25.4 mg/dL (9.0-27.0); Calcium 9.5 mg/dL (8.7-10.3); Non-African American GFR(CKD) 87.9 (60.0-200.0); Potassium 4.7 mmol/L (3.5-5.5)
--- NOTE | 2022-09-03 14:05 | P.PN ---
Subjective Progress Note Date: 09/03/22 81-year-old male, who presents to the emergency department, on August 28, complaining of generalized weakness, chills, and fatigue. The patient was tested for coronavirus, by nasal swab, and was positive. Patient was to be discharged to the shelter, but given the positive nasal swab for coronavir us, the patient was admitted to the hospital. We were consulted because of the patient's shortness of breath, and cough. Currently, he's on 2 L of oxygen. He's not receiving any IV fluids. He is not manifesting any overt signs of respiratory distress. He has a history of atrial flutter, CAD, heart failure, COPD, GERD, hyperlipidemia, hypertension, and osteoarthritis, among other things. White count 23, hemoglobin 14.4, hematocrit 44.5, platelet count 254,000. Sodium 138, potassium 4.7, chlorides 101, CO2 26, anion gap 11, BUN 24, creatinine 1.1. The patient's chest x-ray shows evidence of left-sided pneumonia. The patient's pro-calcitonin level is 0.19. The patient is seen today 08/31/2022 in follow-up on the regular medical floor. He is currently sitting up at the bedside. Awake and alert in no acute distress. He is maintaining O2 saturations in the 90s on room air. No IV fluids. White count 20.8. Hemoglobin 14.1. Sodium 134. Potassium 4.2. BUN 26. Creatinine 0.88. Glucose 143. He is continued on vitamin supplements, anticoagulated with Eliquis, remains on Decadron. Blood culture with coag- negative staph. Currently on ceftriaxone. The patient is seen today 09/01/2022 in follow-up on the regular medical floor. He is awake and alert in no acute distress. Maintaining good O2 saturations in the 90s on 2 L/m per nasal cannula. Afebrile. He is continued on Symbicort, albuterol, Decadron and vitamin supplements. Anticoagulated with Eliquis. Remains on antibiotics in the form of ceftriaxone. Follow-up chest x-ray in a.m. Progress note dated 09/02/2022. The patient is seen in room 456. He is currently on 2 L. He's not receiving any IV fluids. The patient does complain about his cough. I had some Tessalon Perles, 200 mg, 3 times a day. He denies any significant shortness of breath. He is not producing any phlegm when he coughs. He denies any fever or chills. He denies any chest pain or chest discomfort. White count 24.3, hemoglobin 13.6, hematocrit 41.9, and platelet count 291,000. Blood cultures are positive for staph hominis. Chest x-ray is showing some patchy infiltrates in the left lung, which could be pneumonia and/or atelectasis. 4 this is a on 09/03/2022, the patient is being seen for a follow-up. The patient was a case of Covid 19 infection diagnosed in 08/28/2022. He was hospitalized at another facility and he was treated and he was discharged to a shelter. He came back to us because of generalized weakness and fatigue. He is currently on room air oxygen. He is doing well. No specific complaints. His blood pressure is slightly elevated and this is being managed by the medical team. Otherwise, he is on room air oxygen. He is on Symbicort, albuterol rescue inhaler, Decadron and multivitamins. He is also anticoagulated with Eliquis. His blood work today shows a white cell count of 21 with a hemoglobin of 14.2 and a platelet count of 322. Sodium is at 133, BUN is at 25 with a creatinine of 0.7. His inflammatory markers were low including an LDH level of 216. His chest x-ray showed diffuse infiltrate in the left lung compatible with Covid 19 and there was some mild increased lung markings noted on the right.. His pro calcitonin level at the time of admission was also low Objective - Vital Signs Vital signs: Vital Signs Temp 97.5 F L 09/03/22 07:48 Pulse 52 L 09/03/22 07:48 Resp 18 09/03/22 07:48 BP 187/94 09/03/22 07:48 Pulse Ox 94 L 09/03/22 08:54 FiO2 Intake & Output 09/02/22 09/03/22 09/03/22 18:59 06:59 18:59 Intake Total 1080 Output Total 500 1050 Balance 580 -1050 Intake: Oral 1080 Output: Urine 500 1050 Other: Voiding Method Urinal Urinal Incontinent External Catheter # Voids 4 - Exam No acute distress, oriented 3. Currently on 2 L. No conversational dyspnea, use of accessory muscles, or audible wheezing. HEENT examination is grossly unremarkable. Neck supple. Full range of motion. No adenopathy thyromegaly or neck vein distention. Cardiovascular examination reveals regular rhythm rate. S1-S2 normal. No S3 or S4. No discernible murmur noted. Heart sounds are distant. Heart rate 79 bpm. Lungs reveal scattered bilateral rhonchi. No wheezes, or crackles. Breath sounds equal bilaterally. 2 L saturation is 98%. Abdomen soft bowel sounds are heard. No masses or tenderness. Extremities are intact. No cyanosis clubbing or edema. Skin is without rash or lesion. Neurologic examination is brief but nonfocal. - Labs CBC & Chem 7: 09/03/22 03:42 09/03/22 03:42 Labs: Abnormal Lab Results - Last 24 Hours (Table) 09/03/22 09/03/22 Range/Units 03:42 03:42 WBC 21.07 H (4.50-10.00) X 10*3/uL RDW 15.0 H (11.5-14.5) % Immature Gran # 0.89 H (0.00-0.04) X 10*3/uL Neutrophils # 17.34 H (1.80-7.70) X 10*3/uL Monocytes # 1.14 H (0.20-1.00) X 10*3/uL Eosinophils # 0.01 L (0.04-0.35) X 10*3/uL Basophils # 0.11 H (0.00-0.10) X 10*3/uL Sodium 133 L (135-145) mmol/L Anion Gap 9.00 L (10.00-18.00) mmol/L BUN/Creatinine Ratio 36.29 H (12.00-20.00) Ratio Assessment and Plan Plan: Acute hypoxemic respiratory failure secondary to left-sided pneumonia., the presentation is consistent with Covid 19 related pneumonia and the patient is currently on Decadron and there is still some perihilar left-sided haziness History of coronavirus infection, and possible coronavirus associated pneumonia. History of coronary artery disease, with previous stenting. History of atrial flutter. History of CHF. History of COPD, from previous tobacco use. History of hyperlipidemia. History of hypertension. History of deafness. History of GERD. History of gout. Multiple other medical problems and comorbidities. Plan: Clinically stable and the patient is currently on room air oxygen Obtain a CAT scan of the chest with contrast to evaluate the left perihilar abnormalities Continue treatment with the same regimen of Decadron, antibiotics and steroids and bronchodilators Possible discharge within the next 24-48 hours depending on the results of the CAT scan of the chest.
--- NOTE | 2022-09-03 17:02 | CT ---
EXAMINATION TYPE: CT chest wo con DATE OF EXAM: 09/03/2022 COMPARISON: 06/06/2020 HISTORY: Evaluation of perihilar abnormalities CT DLP: 360.7 mGycm Automated exposure control for dose reduction was used. Images obtained from the thoracic inlet to the diaphragm with no contrast. There is a 5.5 cm irregular area of consolidation in the posterior segment of the left upper lobe. Th ere is a 3 x 2 cm cavitating infiltrate in the posterior lateral left lower lobe. There is an adjacen t 2 cm cavitating infiltrate. No evidence of endobronchial mass. No evidence of mediastinal adenopath y. There is coronary artery calcification. The thoracic aorta is atheromatous. There is some calcifie d pleural plaque in the posterior left lower lobe. There is mild posterior pleural thickening at the lung bases bilaterally. The thoracic spine is intact. No compression fracture. Sternum is intact. No evidence of rib fracture . There is 1.8 cm cyst in the left lobe of the liver with peripheral calcification without change. Th ere is 1.5 cm rounded hypodensity in the lateral superior right lobe of the liver that is likely new compared to old exam. This has density of 6 that is likely a cyst. IMPRESSION: Cavitating infiltrates in the left lower lobe. Large area of consolidation in the left upper lobe. Pl eural thickening and calcification at the posterior lung bases. Mild reticular infiltrate in the post erior lung gavin. Large infiltrate in the left upper lobe and cavitating infiltrates are new compare d to old exam. Follow-up is recommended. I would consider possibilities of developing lung abscess as well as tumor.
[2022-09-03 19:38] LABS: Glucose,Whole Blood 208 mg/dL (70-110)
--- NOTE | 2022-09-03 20:45 | P.PN ---
Subjective 81-year-old male with a known history of atrial flutter, coronary artery disease with history of stent placement, hearing disorder/deafness, hypertension, hyperlipidemia, cellulitis, peripheral vascular disease and prior history of smoking presents to ER with complaints of generalized weakness and chills and shortness of breath. Patient was diagnosed with COVID-19 infection at outside hospital. Plan was to discharge him to intermediate but given COVID-19 positive status it was felt frequently discharged home. Patient has been having genera lized weakness and falls at home. Patient has decreased oral intake.. Patient does have nausea. No chills or vomiting. No diarrhea. On admission patient was tachycardic and saturating at 96% on 2 L of oxygen via nasal cannula. Chest x-ray showed there is a left upper lobe and left lower lobe pneumonia which is mostly new compared to old exam. No heart failure seen. Laboratory data showed WBC 18.4 hemoglobin 15.8 and platelets 242 Sodium 136 potassium 3.9 chloride 100 bicarb is 24 BUN 19 and creatinine 0.92 and blood sugar is 125 Liver enzymes are not elevated. LDH 336 and CRP 21.8 troponin 0.031 and procalcitonin level is 0.19. Urinalysis is negative for infection COVID-19 PCR detected. 09/01/2022 Patient is seen and evaluated in follow-up on the regular medical floor. He is awake and alert in no acute distress. Maintaining good O2 saturations in the 90s on 2 L/m per nasal cannula. Afebrile. He is continued on Symbicort, albuterol, Decadron and vitamin supplements. Anticoagulated with Eliquis. Remains on antibiotics in the form of ceftriaxone. Follow-up chest x-ray in a.m. Pulmonary on board and recommending to continue with ceftriaxone; patient awaits placement to subacute rehab 09/02/2022 Patient is seen and evaluated and discussed with nursing staff; history of fall with laceration back of head with albert in place; patient does have occipital hematoma; plan is to take the albert out and wound care consult He is currently on 2 L. He's not receiving any IV fluids. The patient does complain about his cough. I had some Tessalon Perles, 200 mg, 3 times a day. He denies any significant shortness of breath. He is not producing any phlegm when he coughs. He denies any fever or chills. He denies any chest pain or chest discomfort. White count 24.3, hemoglobin 13.6, hematocrit 41.9, and platelet count 291,000. Blood cultures are positive for staph hominis. Chest x-ray is showing some patchy infiltrates in the left lung, which could be pneumonia and/or atelectasis. He continues on an albuterol inhaler, vitamin C, vitamin D3, and zinc, Symbicor t, Decadron, and Rocephin. Discharge planning in progress 09/03/2022 pt is still tachypnic and with cough and phlegm , little amount, no chest pain he is awake and alert and knows he is in the hospital , however he has no insight into his illness, he thought he is in the hospital for his leg pain , i told him about his pna no GI or urinary complaint he has some right leg pain pulmonary team on the case and recommended ct of the chest which is pending now. Objective - Vital Signs Vital signs: Vital Signs Temp 97.5 F L 09/03/22 07:48 Pulse 52 L 09/03/22 07:48 Resp 18 09/03/22 07:48 BP 187/94 09/03/22 07:48 Pulse Ox 94 L 09/03/22 08:54 FiO2 Intake & Output 09/02/22 09/03/22 09/03/22 18:59 06:59 18:59 Intake Total 1080 Output Total 500 1050 Balance 580 -1050 Intake: Oral 1080 Output: Urine 500 1050 Other: Voiding Method Urinal Urinal Incontinent External Catheter # Voids 4 - Exam GENERAL: The patient is alert and oriented x3, not in any acute distress. Well developed, well nourished. HEENT: Pupils are round and equally reacting to light. EOMI. No scleral icterus. No conjunctival pallor. Normocephalic, atraumatic. No pharyngeal erythema. No thyromegaly. CARDIOVASCULAR: S1 and S2 present. No murmurs, rubs, or gallops. -PULMONARY: Chest is clear to auscultation, no wheezing or crackles. tachypnea with left side crepitation ABDOMEN: Soft, nontender, nondistended, normoactive bowel sounds. No palpable organomegaly. MUSCULOSKELETAL: No joint swelling or deformity. EXTREMITIES: No cyanosis, clubbing, or pedal edema. NEUROLOGICAL: Gross neurological examination did not reveal any focal deficits. SKIN: No rashes. no petechiae. - Labs CBC & Chem 7: 09/03/22 03:42 09/03/22 03:42 Labs: Abnormal Lab Results - Last 24 Hours (Table) 09/02/22 09/03/22 09/03/22 Range/Units 03:56 03:42 03:42 WBC 21.07 H (4.50-10.00) X 10*3/uL RDW 15.0 H (11.5-14.5) % Immature Gran # 0.89 H (0.00-0.04) X 10*3/uL Neutrophils # 17.34 H (1.80-7.70) X 10*3/uL Monocytes # 1.14 H (0.20-1.00) X 10*3/uL Eosinophils # 0.01 L (0.04-0.35) X 10*3/uL Basophils # 0.11 H (0.00-0.10) X 10*3/uL Sodium 133 L 133 L (135-145) mmol/L Anion Gap 9.20 L 9.00 L (10.00-18.00) mmol/L BUN/Creatinine Ratio 30.50 H 36.29 H (12.00-20.00) Ratio Assessment and Plan Assessment: Left side pneumonia Acute COVID-19 pneumonia-patient has not been vaccinated. Elevated inflammatory markers Acute hypoxic respiratory failure requiring oxygen at 2 L via nasal cannula. Generalized weakness and falls at home. Chronic atrial fibrillation/flutter on anticoagulation with Eliquis. Coronary disease history of stent placement GERD Hearing disorder/deafness Hypertension Hyperlipidemia Osteoarthritis Peripheral vascular disease with bilateral occluded SFA and bilateral popliteal arteries. History of gout Plan: Patient will be continued on oxygen supplementation. Was given antibiotics cefepime and dexamethasone for gram neg bacteria and covid pna . Follow-up blood cultures. pulmonary team on the case and recommend ct of the chest which is pending Due to hypoxia patient was started on dexamethasone 6 mg daily and continue with duo nebs and Symbicort. Continue supportive care with multivitamins and GI prophylaxis. dvt px : eliquis gi px: ppi prognosis is guarded
[2022-09-04] MEDS: methocarbamoL 750 MG TAB PO PRN ×2 (03:46→12:13)
[2022-09-04] MEDS: PANTOPRAZOLE 40 MG TABLET PO SCH (06:44)
[2022-09-04] MEDS: SYMBICORT 160-4.5 MCG INHALER INHALATION SCH ×2 (07:22→20:38)
[2022-09-04] MEDS: ALBUTEROL HFA INHALER INHALATION SCH ×4 (07:22→20:38)
[2022-09-04] MEDS: BENZONATATE 100 MG CAP PO SCH ×3 (08:47→21:46)
[2022-09-04] MEDS: CHOLECALCIFEROL 25 MCG (1000 IU) TABLET PO SCH (08:47)
[2022-09-04] MEDS: ZINC SULFATE 220 MG CAP PO SCH (08:48)
[2022-09-04] MEDS: APIXABAN 2.5 MG TABLET PO SCH ×2 (08:48→20:25)
[2022-09-04] MEDS: ATORVASTATIN 20 MG TAB PO SCH (08:48)
[2022-09-04] MEDS: DIGOXIN 125 MCG TAB PO SCH (08:48)
[2022-09-04] MEDS: CLOPIDOGREL 75 MG TAB PO SCH (08:48)
[2022-09-04] MEDS: DEXAMETHASONE SOD PHOSPHATE 10 MG/ML 1 ML VIAL IVP SCH (08:48)
[2022-09-04] MEDS: ASCORBIC ACID 500 MG TAB PO SCH (08:48)
[2022-09-04] MEDS: HYDROcodone/APAP 5-325MG 1 EACH TAB PO PRN (09:00)
[2022-09-04 09:15] LABS: Potassium 4.8 mmol/L (3.5-5.1)
[2022-09-04 09:16] LABS: African American GFR (CKD) >90 (>60 ml/min/1.73 sqM); Anion Gap 11 mmol/L; Blood Urea Nitrogen 32 mg/dL (9-20); Calcium 9.9 mg/dL (8.4-10.2); Carbon Dioxide 29 mmol/L (22-30); Chloride 94 mmol/L (98-107); Glucose 118 mg/dL (74-99); Non-African American GFR(CKD) 79 (>60 ml/min/1.73 sqM); Sodium 134 mmol/L (137-145)
[2022-09-04 09:26] LABS: Basophils # (A) 0.1 k/uL (0-0.2); Basophils % (A) 1 %; Eosinophils % (A) 0 %; HCT 49.2 % (39.0-53.0); HGB 16.2 gm/dL (13.0-17.5); Lymphocytes # (A) 1.8 k/uL (1.0-4.8); Lymphocytes % (A) 9 %; MCH 30.6 pg (25.0-35.0); MCV 92.8 fL (80.0-100.0); Mean Platelet Volume 8.6; Monocytes % (A) 5 %; Neutrophils # (A) 16.6 k/uL (1.3-7.7); Neutrophils % (A) 84 %; Platelet Count 361 k/uL (150-450); RBC 5.31 m/uL (4.30-5.90); RDW 14.3 % (11.5-15.5); WBC 19.7 k/uL (3.8-10.6)
--- NOTE | 2022-09-04 11:45 | P.CONS ---
History of Present Illness - Reason for Consult Consult date: 09/04/22 wound care - History of Present Illness This is an 81-year-old gentleman being seen on 4 S. for nonhealing ulceration to the right side of his scalp. Patient states that a few weeks ago he had fallen hitting his head resulting in a laceration. Patient did not have any treatment to the site. He currently has a open ulceration to the scalp with significant amount of slough and serosanguineous drainage noted. Patient has eschar in place. The ulceration does show undermining. Review Of Systems: Constitutional: No fever, no chills, no night sweats. No weight change. No weakness, fatigue or lethargy. No daytime sleepiness. Integumentary:reports wounds, no lesions. No rash or pruritus. No unusual bruising. No change in hair or nails. Physical exam: General Appearance: Alert, cooperative, no distress, appears stated age. Skin: See HPI all other Skin color, texture, tugor normal, no rashes or lesions. Neurologic: Alert oriented x3 Assessment: 1. Nonhealing ulceration to the scalp with fat layer exposure Plan: 1. Scalp: Cleanse with normal saline, collagen, saline moisten gauze and dry gauze, secure with rolled gauze and tape. Thank you for the consultation any questions to contact the wound care center DNP note has been reviewed and discussed with Dr. Chester and the impression and plan of care has been directed as dictated. Past Medical History Past Medical History: Atrial Flutter, Coronary Artery Disease (CAD), Heart Failure, COPD, GERD/Reflux, Hearing Disorder / Deafness, Hyperlipidemia, Hypertension, Osteoarthritis (OA), Renal Disease, Vascular Disorder Additional Past Medical History / Comment(s): hx. gout, hx. colon polyps, circulation problems in legs, slight decreased kidney function, shingles History of Any Multi-Drug Resistant Organisms: MRSA Year Discovered:: 02/14/22 MDRO Source:: Right Thigh Past Surgical History: Cholecystectomy, Heart Catheterization, Heart Catheterization With Stent Additional Past Surgical History / Comment(s): right bone graft to collar bone Past Anesthesia/Blood Transfusion Reactions: No Reported Reaction Date of Last Stent Placement:: 05/2020 Past Psychological History: No Psychological Hx Reported Smoking Status: Former smoker Past Alcohol Use History: None Reported Past Drug Use History: None Reported - Past Family History Mother Family Medical History: No Reported History Medications and Allergies Home Medications Medication Instructions Recorded Confirmed Type Atorvastatin [Lipitor] 20 mg PO DAILY 10/17/18 08/28/22 History Budesonide/Formoterol Fumarate 2 puff INHALATION RT-BID 10/17/18 08/28/22 History [Symbicort 160-4.5 Mcg Inhaler] Digoxin [Lanoxin] 125 mcg PO DAILY 10/17/18 08/28/22 History Apixaban [Eliquis] 2.5 mg PO BID 06/05/20 08/28/22 History Clopidogrel [Plavix] 75 mg PO DAILY #30 tab 06/09/20 08/28/22 Rx Acetaminophen Tab [Tylenol] 650 mg PO Q4HR PRN tab 08/02/20 08/28/22 Rx Albuterol Nebulized [Ventolin 2.5 mg INHALATION RT-Q6H PRN 08/28/22 08/28/22 History Nebulized] Furosemide [Lasix] 20 mg PO DAILY 08/28/22 08/28/22 History HYDROcodone/APAP 5-325MG [[place] 1 tab PO QID PRN 08/28/22 08/28/22 History 5-325] Ibuprofen [Motrin Ib] 600 mg PO TID PRN 08/28/22 08/28/22 History methocarbamoL [Methocarbamol] 750 mg PO TID PRN 08/28/22 08/28/22 History traMADol HCL 50 mg PO QID PRN 08/28/22 08/28/22 History Allergies Allergy/AdvReac Type Severity Reaction Status Date / Time Penicillins Allergy Anaphylaxis Verified 08/28/22 17:46 Iodinated Contrast Media AdvReac Diarrhea, Verified 08/28/22 17:46 [Iodinated Contrast- Oral RASH and IV Dye] Physical Exam Vitals: Vital Signs Temp Pulse Resp BP Pulse Ox 09/04/22 08:48 54 L 16 09/04/22 07:43 97.9 F 54 L 16 159/78 92 L 09/04/22 02:00 99.3 F 54 L 17 162/85 93 L 09/03/22 20:40 84 16 09/03/22 19:26 98.6 F 84 17 152/86 93 L 09/03/22 14:00 97.4 F L 70 19 129/53 93 L Intake and Output 09/03/22 09/04/22 09/04/22 22:59 06:59 14:59 Output Total 1850 Balance -1850 Output: Urine 1850 Other: Voiding Method Incontinent Incontinent External Catheter External Catheter Results CBC & Chem 7: 09/04/22 07:51 09/04/22 07:51 Labs: Abnormal Lab Results - Last 24 Hours (Table) 09/03/22 09/04/22 09/04/22 Range/Units 19:36 07:51 07:51 WBC 19.7 H (3.8-10.6) k/uL Neutrophils # 16.6 H (1.3-7.7) k/uL Sodium 134 L (137-145) mmol/L Chloride 94 L (98-107) mmol/L BUN 32 H (9-20) mg/dL Glucose 118 H (74-99) mg/dL POC Glucose (mg/dL) 208 H (70-110) mg/dL Assessment and Plan (1) Non-pressure chronic ulcer of skin of other sites with fat layer exposed Current Visit: Yes Status: Acute Code(s): L98.492 - NON-PRS CHRONIC ULCER OF SKIN OF SITES W FAT LAYER EXPOSED SNOMED Code(s): 75002422
[2022-09-04] MEDS ORDERED: CEFEPIME 2 GM in SODIUM CHLORIDE 0.9% 100 ML IVPB SCH (12:00)
[2022-09-04] MEDS: CEFEPIME 2 GM in SODIUM CHLORIDE 0.9% 100 ML IVPB SCH (12:01)
--- NOTE | 2022-09-04 13:25 | P.PN ---
Subjective Progress Note Date: 09/04/22 81-year-old male, who presents to the emergency department, on August 28, complaining of generalized weakness, chills, and fatigue. The patient was tested for coronavirus, by nasal swab, and was positive. Patient was to be discharged to the care home, but given the positive nasal swab for coronavir us, the patient was admitted to the hospital. We were consulted because of the patient's shortness of breath, and cough. Currently, he's on 2 L of oxygen. He's not receiving any IV fluids. He is not manifesting any overt signs of respiratory distress. He has a history of atrial flutter, CAD, heart failure, COPD, GERD, hyperlipidemia, hypertension, and osteoarthritis, among other things. White count 23, hemoglobin 14.4, hematocrit 44.5, platelet count 254,000. Sodium 138, potassium 4.7, chlorides 101, CO2 26, anion gap 11, BUN 24, creatinine 1.1. The patient's chest x-ray shows evidence of left-sided pneumonia. The patient's pro-calcitonin level is 0.19. The patient is seen today 08/31/2022 in follow-up on the regular medical floor. He is currently sitting up at the bedside. Awake and alert in no acute distress. He is maintaining O2 saturations in the 90s on room air. No IV fluids. White count 20.8. Hemoglobin 14.1. Sodium 134. Potassium 4.2. BUN 26. Creatinine 0.88. Glucose 143. He is continued on vitamin supplements, anticoagulated with Eliquis, remains on Decadron. Blood culture with coag- negative staph. Currently on ceftriaxone. The patient is seen today 09/01/2022 in follow-up on the regular medical floor. He is awake and alert in no acute distress. Maintaining good O2 saturations in the 90s on 2 L/m per nasal cannula. Afebrile. He is continued on Symbicort, albuterol, Decadron and vitamin supplements. Anticoagulated with Eliquis. Remains on antibiotics in the form of ceftriaxone. Follow-up chest x-ray in a.m. Progress note dated 09/02/2022. The patient is seen in room 456. He is currently on 2 L. He's not receiving any IV fluids. The patient does complain about his cough. I had some Tessalon Perles, 200 mg, 3 times a day. He denies any significant shortness of breath. He is not producing any phlegm when he coughs. He denies any fever or chills. He denies any chest pain or chest discomfort. White count 24.3, hemoglobin 13.6, hematocrit 41.9, and platelet count 291,000. Blood cultures are positive for staph hominis. Chest x-ray is showing some patchy infiltrates in the left lung, which could be pneumonia and/or atelectasis. on 09/03/2022, the patient is being seen for a follow-up. The patient was a case of Covid 19 infection diagnosed in 08/28/2022. He was hospitalized at another facility and he was treated and he was discharged to a care home. He came back to us because of generalized weakness and fatigue. He is currently on room air oxygen. He is doing well. No specific complaints. His blood pressure is slightly elevated and this is being managed by the medical team. Otherwise, he is on room air oxygen. He is on Symbicort, albuterol rescue inhaler, Decadron and multivitamins. He is also anticoagulated with Eliquis. His blood work today shows a white cell count of 21 with a hemoglobin of 14.2 and a platelet count of 322. Sodium is at 133, BUN is at 25 with a creatinine of 0.7. His inflammatory markers were low including an LDH level of 216. His chest x- ray showed diffuse infiltrate in the left lung compatible with Covid 19 and there was some mild increased lung markings noted on the right.. His pro calcitonin level at the time of admission was also low 09/04/2022, I'm seeing the patient for a follow-up. The patient is currently on room air oxygen. Nevertheless, the CAT scan of the chest was done yesterday was quite concerning. The patient had extensive inflammatory changes and masslike consolidation with some central cavitation involving the left upper lobe and the left lower lobe. No mediastinal lymphadenopathy. He remains on IV cefepime. It is quite concerning. Based on that, I may consider bronchoscopy and the bronchial lavage to narrow down the differential diagnosis on this pneumonia. Possibility of malignancy cannot be completely ruled out. He is anticoagulated with Eliquis. He is post Covid 19 infection, 2. The first infection was in October 2022 and the secondary infection was on 08/28/2022. Pro-calcitonin level was low at the time of admission.. He is on IV cefepime. No major respiratory distress Objective - Vital Signs Vital signs: Vital Signs Temp 97.9 F 09/04/22 07:43 Pulse 54 L 09/04/22 08:48 Resp 16 09/04/22 08:48 BP 159/78 09/04/22 07:43 Pulse Ox 92 L 09/04/22 07:43 FiO2 Intake & Output 09/03/22 09/04/22 09/04/22 18:59 06:59 18:59 Output Total 300 1850 Balance -300 -1850 Output: Urine 300 1850 Other: Voiding Method Incontinent Incontinent Incontinent External Catheter External Catheter External Catheter - Exam No acute distress, oriented 3. Currently on 2 L. No conversational dyspnea, use of accessory muscles, or audible wheezing. HEENT examination is grossly unremarkable. Neck supple. Full range of motion. No adenopathy thyromegaly or neck vein distention. Cardiovascular examination reveals regular rhythm rate. S1-S2 normal. No S3 or S4. No discernible murmur noted. Heart sounds are distant. Heart rate 79 bpm. Lungs reveal scattered bilateral rhonchi. No wheezes, or crackles. Breath sounds equal bilaterally. 2 L saturation is 98%. Abdomen soft bowel sounds are heard. No masses or tenderness. Extremities are intact. No cyanosis clubbing or edema. Skin is without rash or lesion. Neurologic examination is brief but nonfocal. - Labs CBC & Chem 7: 09/04/22 07:51 09/04/22 07:51 Labs: Abnormal Lab Results - Last 24 Hours (Table) 09/03/22 09/04/22 09/04/22 Range/Units 19:36 07:51 07:51 WBC 19.7 H (3.8-10.6) k/uL Neutrophils # 16.6 H (1.3-7.7) k/uL Sodium 134 L (137-145) mmol/L Chloride 94 L (98-107) mmol/L BUN 32 H (9-20) mg/dL Glucose 118 H (74-99) mg/dL POC Glucose (mg/dL) 208 H (70-110) mg/dL C-Reactive Protein (<1.0) mg/dL 09/04/22 Range/Units 11:25 WBC (3.8-10.6) k/uL Neutrophils # (1.3-7.7) k/uL Sodium (137-145) mmol/L Chloride (98-107) mmol/L BUN (9-20) mg/dL Glucose (74-99) mg/dL POC Glucose (mg/dL) (70-110) mg/dL C-Reactive Protein 1.0 H (<1.0) mg/dL Assessment and Plan Plan: Acute hypoxemic respiratory failure secondary to left-sided pneumonia., the presentation is consistent with Covid 19 related pneumonia and the patient is currently on Decadron and there is still some perihilar left-sided haziness, and the CAT scan of the chest shows a masslike consolidation of the left lung with central cavitation involving the left upper lobe and left lower lobe. Rule out gram-negative pneumonia. Rule out staphylococcal pneumonia. History of coronavirus infection, and possible coronavirus associated pneumonia. History of coronary artery disease, with previous stenting. History of atrial flutter. History of CHF. History of COPD, from previous tobacco use. History of hyperlipidemia. History of hypertension. History of deafness. History of GERD. History of gout. Multiple other medical problems and comorbidities. Plan: I reviewed the CAT scan of the chest and there is some masslike consolidation with some central cavitation left lung involving the left upper lobe and some in the left lower lobe. I'm going to continue the current antibiotic coverage and monitor the subnormality because of the bronchoscopy once he is fully recovered from his Covid 19 infection and he tests negative. Possibility of malignancy is felt to be less likely due to the rather subacute nature of the subnormality. Clinically stable and the patient is currently on room air oxygen Obtain a CAT scan of the chest with contrast to evaluate the left perihilar abnormalities Continue treatment with the same regimen of Decadron, antibiotics and steroids and bronchodilators Possible discharge within the next 24-48 hrs
[2022-09-04] MEDS: CLINDAMYCIN 600 MG in DEXTROSE 5% IN WATER 50 ML IVPB SCH ×2 (16:00)
[2022-09-04 16:08] VITALS: BMI 26.9
--- NOTE | 2022-09-04 16:28 | CDI ---
Documentation Clarification Form Date: 09/04/2022 04:05:10 PM From: Simran Blanca RN CCDS Admit Date: 08/28/2022 06:11:00 PM Patient Name: Balwinder Lucero Visit Number: [id number] Discharge Date: ATTENTION: The Clinical Documentation Specialists (CDI) and [facility] Coding Staff appreciate your assistance in clarifying documentation. Please respond to the clarification below the line at the bottom and electronically sign. The CDI & [facility] Coding staff will review the response and follow-up if needed. Please note: Queries are made part of the Legal Health Record. If you have any questions, please contact the author of this message via ITS. Dr. Avtar Bradford Sepsis is documented H&P, 08/29, Medicine notes 08/30 09/02, but is not noted in subsequent documentation. Clarification is requested. History/Risk Factors: 81-year-old male presents to the ED with generalized weakness and chills, nausea, and shortness of breath. Patient was diagnosed with COVID 19 infection at outside hospital. Medical History: Atrial Flutter, CAD, Heart Failure; COPD and Renal disease. H&P, 08/29. Clinical Indicators: H&P, 08/29: Left upper and left lower lobe pneumonia and sepsis secondary to pneumonia. CXR, 08/28: There is left upper lobe and left lower lobe pneumonia which is mostly new. VVS, 08/28: B/P 125/65; HR 66; Temp 99.2 F Oral; RR 20; SpO2 96% room air Labs, 08/28: Wbc 18.4; Neutrophils 15.6; C-Reactive Protein 21.80; Procalcitonin 0.19; Coronavirus Detected. Blood culture, 08/28: Staph hominis sub sp hominis Treatment: 08/28 0.9NS 1L bolus; 08/29 Zinc po daily; 08/29 Ceftriaxone IVPB Q24HR; 09/04 Cefepime IVPB Q12HR; 09/04 Clindamycin IVPB Q8HR; 08/29 08/31 Zithromax po daily x 3 doses Please clarify if the Sepsis is: [ ] Sepsis confirmed, remains under treatment [ ] Sepsis confirmed, resolved [ ] Sepsis ruled out [ ] Other condition, please specify [ ] Unable to determine (Template Last Revised: January 2021) Sepsis suspected on admission with leukocytosis and tachycardia tachypnea. No fever. Currently tachycardia is improved. Remains leukocytosis MTDD
--- NOTE | 2022-09-04 23:13 | P.PN ---
Subjective 81-year-old male with a known history of atrial flutter, coronary artery disease with history of stent placement, hearing disorder/deafness, hypertension, hyperlipidemia, cellulitis, peripheral vascular disease and prior history of smoking presents to ER with complaints of generalized weakness and chills and shortness of breath. Patient was diagnosed with COVID-19 infection at outside hospital. Plan was to discharge him to long-term but given COVID-19 positive status it was felt frequently discharged home. Patient has been having genera lized weakness and falls at home. Patient has decreased oral intake.. Patient does have nausea. No chills or vomiting. No diarrhea. On admission patient was tachycardic and saturating at 96% on 2 L of oxygen via nasal cannula. Chest x-ray showed there is a left upper lobe and left lower lobe pneumonia which is mostly new compared to old exam. No heart failure seen. Laboratory data showed WBC 18.4 hemoglobin 15.8 and platelets 242 Sodium 136 potassium 3.9 chloride 100 bicarb is 24 BUN 19 and creatinine 0.92 and blood sugar is 125 Liver enzymes are not elevated. LDH 336 and CRP 21.8 troponin 0.031 and procalcitonin level is 0.19. Urinalysis is negative for infection COVID-19 PCR detected. 09/01/2022 Patient is seen and evaluated in follow-up on the regular medical floor. He is awake and alert in no acute distress. Maintaining good O2 saturations in the 90s on 2 L/m per nasal cannula. Afebrile. He is continued on Symbicort, albuterol, Decadron and vitamin supplements. Anticoagulated with Eliquis. Remains on antibiotics in the form of ceftriaxone. Follow-up chest x-ray in a.m. Pulmonary on board and recommending to continue with ceftriaxone; patient awaits placement to subacute rehab 09/02/2022 Patient is seen and evaluated and discussed with nursing staff; history of fall with laceration back of head with albert in place; patient does have occipital hematoma; plan is to take the albert out and wound care consult He is currently on 2 L. He's not receiving any IV fluids. The patient does complain about his cough. I had some Tessalon Perles, 200 mg, 3 times a day. He denies any significant shortness of breath. He is not producing any phlegm when he coughs. He denies any fever or chills. He denies any chest pain or chest discomfort. White count 24.3, hemoglobin 13.6, hematocrit 41.9, and platelet count 291,000. Blood cultures are positive for staph hominis. Chest x-ray is showing some patchy infiltrates in the left lung, which could be pneumonia and/or atelectasis. He continues on an albuterol inhaler, vitamin C, vitamin D3, and zinc, Symbicor t, Decadron, and Rocephin. Discharge planning in progress 09/03/2022 pt is still tachypnic and with cough and phlegm , little amount, no chest pain he is awake and alert and knows he is in the hospital , however he has no insight into his illness, he thought he is in the hospital for his leg pain , i told him about his pna no GI or urinary complaint he has some right leg pain pulmonary team on the case and recommended ct of the chest which is pending now. 09/24/2020, Patient looks severely weak while lying in bed. Minimal tachypnea. Occasional cough. No chest pain and he is saturating 90% on room air. Computed tomography scan showing extensive left side infiltrate with cavitary lesion. Review of possible blood culture for staph hominis. Infectious disease consult is up-to-date and input is appreciated, antibiotics was adjusted to clindamycin and cefepime. He remains on dexamethasone for possible culprit Pulmonary team input is appreciated Objective - Vital Signs Vital signs: Vital Signs Temp 97.9 F 09/04/22 07:43 Pulse 54 L 09/04/22 08:48 Resp 16 09/04/22 08:48 BP 159/78 09/04/22 07:43 Pulse Ox 92 L 09/04/22 07:43 FiO2 Intake & Output 09/03/22 09/04/22 09/04/22 18:59 06:59 18:59 Output Total 300 1850 Balance -300 -1850 Output: Urine 300 1850 Other: Voiding Method Incontinent Incontinent Incontinent External Catheter External Catheter External Catheter - Exam GENERAL: The patient is alert and oriented x3, not in any acute distress. Well developed, well nourished. HEENT: Pupils are round and equally reacting to light. EOMI. No scleral icterus. No conjunctival pallor. Normocephalic, atraumatic. No pharyngeal erythema. No thyromegaly. CARDIOVASCULAR: S1 and S2 present. No murmurs, rubs, or gallops. -PULMONARY: Chest is clear to auscultation, no wheezing or crackles. tachypnea with left side crepitation ABDOMEN: Soft, nontender, nondistended, normoactive bowel sounds. No palpable organomegaly. MUSCULOSKELETAL: No joint swelling or deformity. EXTREMITIES: No cyanosis, clubbing, or pedal edema. NEUROLOGICAL: Gross neurological examination did not reveal any focal deficits. SKIN: No rashes. no petechiae. - Labs CBC & Chem 7: 09/04/22 07:51 09/04/22 07:51 Labs: Abnormal Lab Results - Last 24 Hours (Table) 09/03/22 09/04/22 09/04/22 Range/Units 19:36 07:51 07:51 WBC 19.7 H (3.8-10.6) k/uL Neutrophils # 16.6 H (1.3-7.7) k/uL Sodium 134 L (137-145) mmol/L Chloride 94 L (98-107) mmol/L BUN 32 H (9-20) mg/dL Glucose 118 H (74-99) mg/dL POC Glucose (mg/dL) 208 H (70-110) mg/dL Assessment and Plan Assessment: Left side pneumonia Acute COVID-19 pneumonia-patient has not been vaccinated. Elevated inflammatory markers Acute hypoxic respiratory failure requiring oxygen at 2 L via nasal cannula. Generalized weakness and falls at home. Chronic atrial fibrillation/flutter on anticoagulation with Eliquis. Coronary disease history of stent placement GERD Hearing disorder/deafness Hypertension Hyperlipidemia Osteoarthritis Peripheral vascular disease with bilateral occluded SFA and bilateral popliteal arteries. History of gout Plan: Patient will be continued on oxygen supplementation. Was given antibiotics cefepime and clindamycin and dexamethasone for gram neg bacteria and covid pna . Infectious and pulmonary team on the case Due to hypoxia patient was started on dexamethasone 6 mg daily and continue with duo nebs and Symbicort. Continue supportive care with multivitamins and GI prophylaxis. dvt px : eliquis gi px: ppi prognosis is guarded
[2022-09-05] MEDS: CLINDAMYCIN 600 MG in DEXTROSE 5% IN WATER 50 ML IVPB SCH ×8 (00:27→23:22)
[2022-09-05] MEDS: CEFEPIME 2 GM in SODIUM CHLORIDE 0.9% 100 ML IVPB SCH ×2 (01:57→11:44)
[2022-09-05] MEDS: methocarbamoL 750 MG TAB PO PRN ×2 (02:55→23:21)
--- NOTE | 2022-09-05 06:40 | XR ---
EXAMINATION TYPE: XR chest 1V portable DATE OF EXAM: 09/05/2022 CLINICAL HISTORY: Difficulty breathing progress study. Left lung pneumonia. TECHNIQUE: Single AP portable upright view of the chest is obtained. COMPARISON: CT chest from 2 days earlier and older studies. FINDINGS: Continued improving but persistent left midlung opacity. Areas of increased opacity in the left lower lung show improvement. Cardiomegaly with atherosclerotic thoracic aorta redemonstrated. R ight lung remains clear. Old healed fracture right mid clavicle redemonstrated. Incidental subcentime ter calcified left basilar nodule or benign granuloma redemonstrated. IMPRESSION: Cardiomegaly with persistent but improving left lung multifocal consolidations and/or acu te infiltrates.
[2022-09-05] MEDS: PANTOPRAZOLE 40 MG TABLET PO SCH (06:55)
--- NOTE | 2022-09-05 07:13 | P.CONS ---
History of Present Illness - Reason for Consult Consult date: 09/04/22 - History of Present Illness Patient is a 81-year-old male initially presented to the hospital about a week ago on 08/28/2022 for evaluation of weakness and chills he was recently at the outside facility but the patient was diagnosed and treated for covid19 could not go to the rehab because of the COVID infection and subsequent discharged home patient apparently did have a fall with a trauma to the scalp some bleeding however the patient denies having any loss of consciousness on presentation to the hospital the patient was afebrile and no fever has been recorded subsequently patient has been mildly hypoxic and need for supplemental oxygen patient did have a white count of 18,000 on admission that is up to 24,000 on the and is 19,000 today patient did have normal kidney function urine has been negative did have a positive COVID test blood culture has been positive for staph hominis patient did have a chest x-ray on admission left upper lobe and left lower lobe pneumonia mostly new compared to old he did have a CT of the chest cavity to infiltrate in the left lower lobe large area of consolidation in the left upper lobe pleural thickening possibly developing lung abscess that has prompted this infectious disease consultation patient is currently being treated with Rocephin patient denies having any chest pain he did have a cough With occasional sputum production however no sputum has been clear during this admission, denies any pleuritic chest pain no nausea no vomiting no choking on the food no abdominal pain no diarrhea Past Medical History Past Medical History: Atrial Flutter, Coronary Artery Disease (CAD), Heart Failure, COPD, GERD/Reflux, Hearing Disorder / Deafness, Hyperlipidemia, Hypertension, Osteoarthritis (OA), Renal Disease, Vascular Disorder Additional Past Medical History / Comment(s): hx. gout, hx. colon polyps, circulation problems in legs, slight decreased kidney function, shingles History of Any Multi-Drug Resistant Organisms: MRSA Year Discovered:: 02/14/22 MDRO Source:: Right Thigh Past Surgical History: Cholecystectomy, Heart Catheterization, Heart Catheterization With Stent Additional Past Surgical History / Comment(s): right bone graft to collar bone Past Anesthesia/Blood Transfusion Reactions: No Reported Reaction Date of Last Stent Placement:: 05/2020 Past Psychological History: No Psychological Hx Reported Smoking Status: Former smoker Past Alcohol Use History: None Reported Past Drug Use History: None Reported - Past Family History Mother Family Medical History: No Reported History Medications and Allergies Home Medications Medication Instructions Recorded Confirmed Type Atorvastatin [Lipitor] 20 mg PO DAILY 10/17/18 08/28/22 History Budesonide/Formoterol Fumarate 2 puff INHALATION RT-BID 10/17/18 08/28/22 History [Symbicort 160-4.5 Mcg Inhaler] Digoxin [Lanoxin] 125 mcg PO DAILY 10/17/18 08/28/22 History Apixaban [Eliquis] 2.5 mg PO BID 06/05/20 08/28/22 History Clopidogrel [Plavix] 75 mg PO DAILY #30 tab 06/09/20 08/28/22 Rx Acetaminophen Tab [Tylenol] 650 mg PO Q4HR PRN tab 08/02/20 08/28/22 Rx Albuterol Nebulized [Ventolin 2.5 mg INHALATION RT-Q6H PRN 08/28/22 08/28/22 History Nebulized] Furosemide [Lasix] 20 mg PO DAILY 08/28/22 08/28/22 History HYDROcodone/APAP 5-325MG [[place] 1 tab PO QID PRN 08/28/22 08/28/22 History 5-325] Ibuprofen [Motrin Ib] 600 mg PO TID PRN 08/28/22 08/28/22 History methocarbamoL [Methocarbamol] 750 mg PO TID PRN 08/28/22 08/28/22 History traMADol HCL 50 mg PO QID PRN 08/28/22 08/28/22 History Allergies Allergy/AdvReac Type Severity Reaction Status Date / Time Penicillins Allergy Anaphylaxis Verified 08/28/22 17:46 Iodinated Contrast Media AdvReac Diarrhea, Verified 08/28/22 17:46 [Iodinated Contrast- Oral RASH and IV Dye] Physical Exam Vitals: Vital Signs Temp Pulse Resp BP Pulse Ox 09/04/22 08:48 54 L 16 09/04/22 07:43 97.9 F 54 L 16 159/78 92 L 09/04/22 02:00 99.3 F 54 L 17 162/85 93 L 09/03/22 20:40 84 16 09/03/22 19:26 98.6 F 84 17 152/86 93 L 09/03/22 14:00 97.4 F L 70 19 129/53 93 L Intake and Output 09/03/22 09/04/22 09/04/22 22:59 06:59 14:59 Output Total 1850 Balance -1850 Output: Urine 1850 Other: Voiding Method Incontinent Incontinent External Catheter External Catheter Results CBC & Chem 7: 09/04/22 07:51 09/04/22 07:51 Labs: Abnormal Lab Results - Last 24 Hours (Table) 09/03/22 09/04/22 09/04/22 Range/Units 19:36 07:51 07:51 WBC 19.7 H (3.8-10.6) k/uL Neutrophils # 16.6 H (1.3-7.7) k/uL Sodium 134 L (137-145) mmol/L Chloride 94 L (98-107) mmol/L BUN 32 H (9-20) mg/dL Glucose 118 H (74-99) mg/dL POC Glucose (mg/dL) 208 H (70-110) mg/dL Assessment and Plan Plan: 1patient presented to the hospital with weakness and a fall in this patient now with the CT of the chest did shows cavitary infiltrate in the left lower lobe and large area of consolidation in the left upper lobe with concern for possible aspiration pneumonia or developing abscess. 2try to obtain a sputum for gram stain culture. 3patient benefit from bronchoscopy lavage and possible biopsy to rule out malignancy. 4discontinue Rocephin. 5we will add cefepime and clindamycin while waiting for the culture to finali ze. We will follow on clinical condition and cultures to further adjust medication if needed Thank you for this consultation will follow this patient along with you Time with Patient: Greater than 30
[2022-09-05] MEDS: SYMBICORT 160-4.5 MCG INHALER INHALATION SCH ×2 (08:21→19:59)
[2022-09-05] MEDS: ALBUTEROL HFA INHALER INHALATION SCH ×4 (08:21→19:59)
[2022-09-05] MEDS: APIXABAN 2.5 MG TABLET PO SCH ×2 (09:52→20:56)
[2022-09-05] MEDS: ASCORBIC ACID 500 MG TAB PO SCH (09:52)
[2022-09-05] MEDS: CHOLECALCIFEROL 25 MCG (1000 IU) TABLET PO SCH (09:52)
[2022-09-05] MEDS: ATORVASTATIN 20 MG TAB PO SCH (09:52)
[2022-09-05] MEDS: BENZONATATE 100 MG CAP PO SCH ×3 (09:52→21:01)
[2022-09-05] MEDS: DEXAMETHASONE SOD PHOSPHATE 10 MG/ML 1 ML VIAL IVP SCH (09:52)
[2022-09-05] MEDS: CLOPIDOGREL 75 MG TAB PO SCH (09:52)
[2022-09-05] MEDS: DIGOXIN 125 MCG TAB PO SCH (09:53)
[2022-09-05] MEDS: ZINC SULFATE 220 MG CAP PO SCH (09:53)
--- NOTE | 2022-09-05 11:33 | P.PN ---
Subjective Progress Note Date: 09/05/22 81-year-old male, who presents to the emergency department, on August 28, complaining of generalized weakness, chills, and fatigue. The patient was tested for coronavirus, by nasal swab, and was positive. Patient was to be discharged to the shelter, but given the positive nasal swab for coronavir us, the patient was admitted to the hospital. We were consulted because of the patient's shortness of breath, and cough. Currently, he's on 2 L of oxygen. He's not receiving any IV fluids. He is not manifesting any overt signs of respiratory distress. He has a history of atrial flutter, CAD, heart failure, COPD, GERD, hyperlipidemia, hypertension, and osteoarthritis, among other things. White count 23, hemoglobin 14.4, hematocrit 44.5, platelet count 254,000. Sodium 138, potassium 4.7, chlorides 101, CO2 26, anion gap 11, BUN 24, creatinine 1.1. The patient's chest x-ray shows evidence of left-sided pneumonia. The patient's pro-calcitonin level is 0.19. The patient is seen today 08/31/2022 in follow-up on the regular medical floor. He is currently sitting up at the bedside. Awake and alert in no acute distress. He is maintaining O2 saturations in the 90s on room air. No IV fluids. White count 20.8. Hemoglobin 14.1. Sodium 134. Potassium 4.2. BUN 26. Creatinine 0.88. Glucose 143. He is continued on vitamin supplements, anticoagulated with Eliquis, remains on Decadron. Blood culture with coag- negative staph. Currently on ceftriaxone. The patient is seen today 09/01/2022 in follow-up on the regular medical floor. He is awake and alert in no acute distress. Maintaining good O2 saturations in the 90s on 2 L/m per nasal cannula. Afebrile. He is continued on Symbicort, albuterol, Decadron and vitamin supplements. Anticoagulated with Eliquis. Remains on antibiotics in the form of ceftriaxone. Follow-up chest x-ray in a.m. Progress note dated 09/02/2022. The patient is seen in room 456. He is currently on 2 L. He's not receiving any IV fluids. The patient does complain about his cough. I had some Tessalon Perles, 200 mg, 3 times a day. He denies any significant shortness of breath. He is not producing any phlegm when he coughs. He denies any fever or chills. He denies any chest pain or chest discomfort. White count 24.3, hemoglobin 13.6, hematocrit 41.9, and platelet count 291,000. Blood cultures are positive for staph hominis. Chest x-ray is showing some patchy infiltrates in the left lung, which could be pneumonia and/or atelectasis. on 09/03/2022, the patient is being seen for a follow-up. The patient was a case of Covid 19 infection diagnosed in 08/28/2022. He was hospitalized at another facility and he was treated and he was discharged to a shelter. He came back to us because of generalized weakness and fatigue. He is currently on room air oxygen. He is doing well. No specific complaints. His blood pressure is slightly elevated and this is being managed by the medical team. Otherwise, he is on room air oxygen. He is on Symbicort, albuterol rescue inhaler, Decadron and multivitamins. He is also anticoagulated with Eliquis. His blood work today shows a white cell count of 21 with a hemoglobin of 14.2 and a platelet count of 322. Sodium is at 133, BUN is at 25 with a creatinine of 0.7. His inflammatory markers were low including an LDH level of 216. His chest x- ray showed diffuse infiltrate in the left lung compatible with Covid 19 and there was some mild increased lung markings noted on the right.. His pro calcitonin level at the time of admission was also low 09/04/2022, I'm seeing the patient for a follow-up. The patient is currently on room air oxygen. Nevertheless, the CAT scan of the chest was done yesterday was quite concerning. The patient had extensive inflammatory changes and masslike consolidation with some central cavitation involving the left upper lobe and the left lower lobe. No mediastinal lymphadenopathy. He remains on IV cefepime. It is quite concerning. Based on that, I may consider bronchoscopy and the bronchial lavage to narrow down the differential diagnosis on this pneumonia. Possibility of malignancy cannot be completely ruled out. He is anticoagulated with Eliquis. He is post Covid 19 infection, 2. The first infection was in October 2022 and the secondary infection was on 08/28/2022. Pro-calcitonin level was low at the time of admission.. He is on IV cefepime. No major respiratory distress On today's evaluation of 09/05/2022, the patient remains on room air oxygen. A repeat chest x-ray was done today and the chest x-ray is showing some improvement in the left perihilar/left upper lobe consolidation. The patient is still on IV cefepime and clindamycin. No significant sputum production. No signs of any respiratory distress. The patient has no new labs from today. The most recent white cell count was 19.7 which was improving. Most recent x-rays from yesterday were all within normal limits. His pro calcitonin level is also down to 0.11 which is also improving. Tolerating diet. No new complaints. Objective - Vital Signs Vital signs: Vital Signs Temp 98.2 F 09/05/22 08:00 Pulse 61 09/05/22 08:00 Resp 15 09/05/22 08:00 BP 162/91 09/05/22 08:00 Pulse Ox 93 L 09/05/22 08:24 FiO2 Intake & Output 09/04/22 09/05/22 09/05/22 18:59 06:59 18:59 Output Total 800 1000 Balance -800 -1000 Weight 73.482 kg Output: Urine 800 1000 Other: Voiding Method Incontinent Incontinent Incontinent External Catheter External Catheter External Catheter - Exam No acute distress, oriented 3. Currently on 2 L. No conversational dyspnea, use of accessory muscles, or audible wheezing. HEENT examination is grossly unremarkable. Neck supple. Full range of motion. No adenopathy thyromegaly or neck vein distention. Cardiovascular examination reveals regular rhythm rate. S1-S2 normal. No S3 or S4. No discernible murmur noted. Heart sounds are distant. Heart rate 79 bpm. Lungs reveal scattered bilateral rhonchi. No wheezes, or crackles. Breath sounds equal bilaterally. 2 L saturation is 98%. Abdomen soft bowel sounds are heard. No masses or tenderness. Extremities are intact. No cyanosis clubbing or edema. Skin is without rash or lesion. Neurologic examination is brief but nonfocal. - Labs CBC & Chem 7: 09/04/22 07:51 09/04/22 07:51 Labs: Abnormal Lab Results - Last 24 Hours (Table) 09/04/22 09/04/22 Range/Units 11:25 11:25 C-Reactive Protein 1.0 H (<1.0) mg/dL Procalcitonin 0.11 H (0.02-0.09) ng/mL Assessment and Plan Plan: Acute hypoxemic respiratory failure secondary to left-sided pneumonia., the presentation is consistent with Covid 19 related pneumonia and the patient is currently on Decadron and there is still some perihilar left-sided haziness, and the CAT scan of the chest shows a masslike consolidation of the left lung with central cavitation involving the left upper lobe and left lower lobe. Rule out gram-negative pneumonia. Rule out staphylococcal pneumonia. Clinically improving. The patient is currently on room air oxygen. Repeat chest x-ray showed improvement in the multifocal consolidation involving the left lung. Pro-calcitonin level is improving. Awaiting follow-up white cell count. History of coronavirus infection, and possible coronavirus associated pneumonia. History of coronary artery disease, with previous stenting. History of atrial flutter. History of CHF. History of COPD, from previous tobacco use. History of hyperlipidemia. History of hypertension. History of deafness. History of GERD. History of gout. Multiple other medical problems and comorbidities. Plan: Clinically improved Chest x-rays also improving Doubt malignancy Recovering from Covid 19 in his inflammatory markers are lower including CRP Awaiting follow-up white cell count Pro calcitonin level is improving Continue cefepime and clindamycin Continue treatment with the same regimen of Decadron, antibiotics and steroids and bronchodilators Possible discharge within the next 24-48 hrs
[2022-09-05] MEDS: HYDROcodone/APAP 5-325MG 1 EACH TAB PO PRN (15:46)
--- NOTE | 2022-09-05 21:05 | P.PN ---
Subjective 81-year-old male with a known history of atrial flutter, coronary artery disease with history of stent placement, hearing disorder/deafness, hypertension, hyperlipidemia, cellulitis, peripheral vascular disease and prior history of smoking presents to ER with complaints of generalized weakness and chills and shortness of breath. Patient was diagnosed with COVID-19 infection at outside hospital. Plan [facility] but given COVID-19 positive status it was felt frequently discharged home. Patient has been having genera lized weakness and falls at home. Patient has decreased oral intake.. Patient does have nausea. No chills or vomiting. No diarrhea. On admission patient was tachycardic and saturating at 96% on 2 L of oxygen via nasal cannula. Chest x-ray showed there is a left upper lobe and left lower lobe pneumonia which is mostly new compared to old exam. No heart failure seen. Laboratory data showed WBC 18.4 hemoglobin 15.8 and platelets 242 Sodium 136 potassium 3.9 chloride 100 bicarb is 24 BUN 19 and creatinine 0.92 and blood sugar is 125 Liver enzymes are not elevated. LDH 336 and CRP 21.8 troponin 0.031 and procalcitonin level is 0.19. Urinalysis is negative for infection COVID-19 PCR detected. 09/01/2022 Patient is seen and evaluated in follow-up on the regular medical floor. He is awake and alert in no acute distress. Maintaining good O2 saturations in the 90s on 2 L/m per nasal cannula. Afebrile. He is continued on Symbicort, albuterol, Decadron and vitamin supplements. Anticoagulated with Eliquis. Remains on antibiotics in the form of ceftriaxone. Follow-up chest x-ray in a.m. Pulmonary on board and recommending to continue with ceftriaxone; patient awaits placement to subacute rehab 09/02/2022 Patient is seen and evaluated and discussed with nursing staff; history of fall with laceration back of head with albert in place; patient does have occipital hematoma; plan is to take the albert out and wound care consult He is currently on 2 L. He's not receiving any IV fluids. The patient does complain about his cough. I had some Tessalon Perles, 200 mg, 3 times a day. He denies any significant shortness of breath. He is not producing any phlegm when he coughs. He denies any fever or chills. He denies any chest pain or chest discomfort. White count 24.3, hemoglobin 13.6, hematocrit 41.9, and platelet count 291,000. Blood cultures are positive for staph hominis. Chest x-ray is showing some patchy infiltrates in the left lung, which could be pneumonia and/or atelectasis. He continues on an albuterol inhaler, vitamin C, vitamin D3, and zinc, Symbicor t, Decadron, and Rocephin. Discharge planning in progress 09/03/2022 pt is still tachypnic and with cough and phlegm , little amount, no chest pain he is awake and alert and knows he is in the hospital , however he has no insight into his illness, he thought he is in the hospital for his leg pain , i told him about his pna no GI or urinary complaint he has some right leg pain pulmonary team on the case and recommended ct of the chest which is pending now. 09/24/2020, Patient looks severely weak while lying in bed. Minimal tachypnea. Occasional cough. No chest pain and he is saturating 90% on room air. Computed tomography scan showing extensive left side infiltrate with cavitary lesion. Review of possible blood culture for staph hominis. Infectious disease consult is up-to-date and input is appreciated, antibiotics was adjusted to clindamycin and cefepime. He remains on dexamethasone for possible culprit Pulmonary team input is appreciated 09/05/2022 Patient still lethargic but clinically stable, he is improving slowly and gradually Vitals stable, oxygen saturation is acceptable He remains on clindamycin and cefepime and just x-ray from today showing improvement in infiltrate He is also on liquids home dose, multiple vitamins and Plavix. Objective - Vital Signs Vital signs: Vital Signs Temp 98.2 F 09/05/22 08:00 Pulse 61 09/05/22 08:00 Resp 15 09/05/22 08:00 BP 162/91 09/05/22 08:00 Pulse Ox 93 L 09/05/22 08:24 FiO2 Intake & Output 09/04/22 09/05/22 09/05/22 18:59 06:59 18:59 Output Total 800 1000 Balance -800 -1000 Weight 73.482 kg Output: Urine 800 1000 Other: Voiding Method Incontinent Incontinent Incontinent External Catheter External Catheter External Catheter - Exam GENERAL: The patient is alert and oriented x3, not in any acute distress. Well developed, well nourished. HEENT: Pupils are round and equally reacting to light. EOMI. No scleral icterus. No conjunctival pallor. Normocephalic, atraumatic. No pharyngeal erythema. No thyromegaly. CARDIOVASCULAR: S1 and S2 present. No murmurs, rubs, or gallops. -PULMONARY: Chest is clear to auscultation, no wheezing or crackles. tachypnea with left side crepitation ABDOMEN: Soft, nontender, nondistended, normoactive bowel sounds. No palpable organomegaly. MUSCULOSKELETAL: No joint swelling or deformity. EXTREMITIES: No cyanosis, clubbing, or pedal edema. NEUROLOGICAL: Gross neurological examination did not reveal any focal deficits. SKIN: No rashes. no petechiae. - Labs CBC & Chem 7: 09/04/22 07:51 09/04/22 07:51 Labs: Abnormal Lab Results - Last 24 Hours (Table) 09/04/22 09/04/22 Range/Units 11:25 11:25 C-Reactive Protein 1.0 H (<1.0) mg/dL Procalcitonin 0.11 H (0.02-0.09) ng/mL Assessment and Plan Assessment: Left side pneumonia Acute COVID-19 pneumonia-patient has not been vaccinated. Elevated inflammatory markers Acute hypoxic respiratory failure requiring oxygen at 2 L via nasal cannula. Generalized weakness and falls at home. Chronic atrial fibrillation/flutter on anticoagulation with Eliquis. Coronary disease history of stent placement GERD Hearing disorder/deafness Hypertension Hyperlipidemia Osteoarthritis Peripheral vascular disease with bilateral occluded SFA and bilateral popliteal arteries. History of gout Plan: Patient will be continued on oxygen supplementation. Was given antibiotics cefepime and clindamycin and dexamethasone for gram neg bacteria and covid pna . Infectious and pulmonary team on the case Due to hypoxia patient was started on dexamethasone 6 mg daily and continue with duo nebs and Symbicort. Continue supportive care with multivitamins and GI prophylaxis. dvt px : eliquis gi px: ppi prognosis is guarded
[2022-09-06] MEDS: CEFEPIME 2 GM in SODIUM CHLORIDE 0.9% 100 ML IVPB SCH ×2 (00:24→11:58)
[2022-09-06] MEDS: PANTOPRAZOLE 40 MG TABLET PO SCH (06:39)
[2022-09-06] MEDS: BENZONATATE 100 MG CAP PO SCH ×3 (07:45→22:35)
[2022-09-06] MEDS: ZINC SULFATE 220 MG CAP PO SCH (07:45)
[2022-09-06] MEDS: CHOLECALCIFEROL 25 MCG (1000 IU) TABLET PO SCH (07:45)
[2022-09-06] MEDS: CLOPIDOGREL 75 MG TAB PO SCH (07:45)
[2022-09-06] MEDS: DIGOXIN 125 MCG TAB PO SCH (07:46)
[2022-09-06] MEDS: ATORVASTATIN 20 MG TAB PO SCH (07:46)
[2022-09-06] MEDS: ASCORBIC ACID 500 MG TAB PO SCH (07:46)
[2022-09-06] MEDS: APIXABAN 2.5 MG TABLET PO SCH ×2 (07:46→22:35)
[2022-09-06] MEDS: DEXAMETHASONE SOD PHOSPHATE 10 MG/ML 1 ML VIAL IVP SCH (07:46)
[2022-09-06] MEDS: CLINDAMYCIN 600 MG in DEXTROSE 5% IN WATER 50 ML IVPB SCH ×4 (07:51→18:07)
[2022-09-06] MEDS: methocarbamoL 750 MG TAB PO PRN ×2 (08:40→22:35)
[2022-09-06] MEDS: ALBUTEROL HFA INHALER INHALATION SCH ×4 (09:01→21:41)
[2022-09-06] MEDS: SYMBICORT 160-4.5 MCG INHALER INHALATION SCH ×2 (09:01→21:41)
[2022-09-06 10:54] LABS: African American GFR (CKD) 80.9 (60.0-200.0); Albumin/Globulin Ratio 1.03 (1.60-3.17); Anion Gap 8.5 mmol/L (10.00-18.00); BUN/Creat Ratio 35.1 Ratio (12.00-20.00); Blood Urea Nitrogen 35.1 mg/dL (9.0-27.0); Calcium 9.2 mg/dL (8.7-10.3); Carbon Dioxide 25.5 mmol/L (20.0-27.5); Globulin 2.9 g/dL (1.6-3.3); Non-African American GFR(CKD) 69.8 (60.0-200.0); Potassium 5.3 mmol/L (3.5-5.5); Total Bilirubin 0.4 mg/dL (0.30-1.20); Total Protein 5.9 g/dL (6.2-8.2)
[2022-09-06 11:37] LABS: HCT 47.4 % (39.6-50.0); HGB 15.3 g/dL (13.0-17.0); MCH 29.7 pg (27.0-32.0); MCHC 32.3 g/dL (32.0-37.0); MCV 91.9 fL (80.0-97.0); Mean Platelet Volume 10.2 fL (9.5-12.2); NRBC Per 100 WBC 0 /100 WBCS (0.0-0.0); Platelet Count 398 X 10*3/uL (140-440); RBC 5.16 X 10*6/uL (4.40-5.60); WBC 19.47 X 10*3/uL (4.50-10.00)
[2022-09-06 11:38] LABS: Basophils # (M) 0 X 10*3/uL (0.00-0.10); Eosinophils # (M) 0 X 10*3/uL (0.04-0.35); Lymphocytes # (M) 1.75 X 10*3/uL (0.90-5.00); Metamyelocytes % 2 % (0-0); Monocytes # (M) 1.56 X 10*3/uL (0.20-1.00); Myelocytes % 4 % (0-0); Neutrophils # (M) 14.99 X 10*3/uL (2.00-8.90); Neutrophils % (M) 77 %
--- NOTE | 2022-09-06 13:34 | P.PN ---
Subjective Progress Note Date: 09/06/22 Principal diagnosis: Shortness of breath. 81-year-old male, who presents to the emergency department, on August 28, complaining of generalized weakness, chills, and fatigue. The patient was tested for coronavirus, by nasal swab, and was positive. Patient was to be discharged to the [facility], but given the positive nasal swab for coronavirus, the patient was admitted to the hospital. We were consulted because of the patient's shortness of breath, and cough. Currently, he's on 2 L of oxygen. He's not receiving any IV fluids. He is not manifesting any overt signs of respiratory distress. He has a history of atrial flutter, CAD, heart failure, COPD, GERD, hyperlipidemia, hypertension, and osteoarthritis, among other things. White count 23, hemoglobin 14.4, hematocrit 44.5, platelet count 254,000. Sodium 138, potassium 4.7, chlorides 101, CO2 26, anion gap 11, BUN 24, creatinine 1.1. The patient's chest x-ray shows evidence of left-sided pneumonia. The patient's pro-calcitonin level is 0.19. The patient is seen today 08/31/2022 in follow-up on the regular medical floor. He is currently sitting up at the bedside. Awake and alert in no acute distres s. He is maintaining O2 saturations in the 90s on room air. No IV fluids. White count 20.8. Hemoglobin 14.1. Sodium 134. Potassium 4.2. BUN 26. Creatinine 0.88. Glucose 143. He is continued on vitamin supplements, anticoagulated with Eliquis, remains on Decadron. Blood culture with coag-n egative staph. Currently on ceftriaxone. The patient is seen today 09/01/2022 in follow-up on the regular medical floor. He is awake and alert in no acute distress. Maintaining good O2 saturations in the 90s on 2 L/m per nasal cannula. Afebrile. He is continued on Symbicort, albuterol, Decadron and vitamin supplements. Anticoagulated with Eliquis. Remains on antibiotics in the form of ceftriaxone. Follow-up chest x-ray in a.m. Progress note dated 09/02/2022. The patient is seen in room 456. He is currently on 2 L. He's not receiving any IV fluids. The patient does complain about his cough. I had some Tessalon Perles, 200 mg, 3 times a day. He denies any significant shortness of breath. He is not producing any phlegm when he coughs. He denies any fever or chills. He denies any chest pain or chest discomfort. White count 24.3, hemoglobin 13.6, hematocrit 41.9, and platelet count 291,000. Blood cultures are positive for staph hominis. Chest x-ray is showing some patchy infiltrates in the left lung, which could be pneumonia and/or atelectasis. Progress note dated 09/06/2022. The patient was last seen on September 02. He still in room 456. He's currently on room air. He is getting saline at 20 mL an hour. The patient appears not have any complaints of shortness of breath, cough, wheezing, or phlegm production. He denies any chest pain or chest discomfort. He seems to be resting comfortably. Initially was admitted through the emergency department on August 28, with generalized weakness, chills and fatigue. The patient did test positive for coronavirus. White count 19.47, hemoglobin 15.3, hematocrit 47.4, with a platelet count of 398,000. Sodium 132, potassium 5.3, chloride 98, CO2 26, BUN 35, and creatinine 1. Pro-calcitonin level was 0.11. Objective - Vital Signs Vital signs: Vital Signs Temp 97.4 F L 09/06/22 02:00 Pulse 60 09/06/22 07:51 Resp 17 09/06/22 07:51 BP 151/88 09/06/22 02:00 Pulse Ox 93 L 09/06/22 02:00 FiO2 Intake & Output 09/05/22 09/06/22 09/06/22 18:59 06:59 18:59 Output Total 700 1200 Balance -700 -1200 Output: Urine 700 1200 Other: Voiding Method Incontinent Incontinent Incontinent External Catheter External Catheter External Catheter - Exam No acute distress, oriented 3. Currently on room air. No conversational dyspnea, use of accessory muscles, or audible wheezing. HEENT examination is grossly unremarkable. Neck supple. Full range of motion. No adenopathy thyromegaly or neck vein distention. Cardiovascular examination reveals regular rhythm rate. S1-S2 normal. No S3 or S4. No discernible murmur noted. Heart sounds are distant. Heart rate 60 bpm. Lungs reveal scattered bilateral rhonchi. No wheezes, or crackles. Breath sounds equal bilaterally. Room air saturation is 93%. Abdomen soft bowel sounds are heard. No masses or tenderness. Extremities are intact. No cyanosis clubbing or edema. Skin is without rash or lesion. Neurologic examination is brief but nonfocal. - Labs CBC & Chem 7: 09/06/22 05:45 09/06/22 05:45 Labs: Abnormal Lab Results - Last 24 Hours (Table) 09/06/22 09/06/22 Range/Units 05:45 05:45 WBC 19.47 H (4.50-10.00) X 10*3/uL RDW 16.0 H (11.5-14.5) % Metamyelocytes % 2 H (0-0) % Myelocytes % 4 H (0-0) % Neutrophils # (Manual) 14.99 H (2.00-8.90) X 10*3/uL Monocytes # (Manual) 1.56 H (0.20-1.00) X 10*3/uL Eosinophils # (Manual) 0 L (0.04-0.35) X 10*3/uL Sodium 132 L (135-145) mmol/L Anion Gap 8.50 L (10.00-18.00) mmol/L BUN 35.1 H (9.0-27.0) mg/dL BUN/Creatinine Ratio 35.10 H (12.00-20.00) Ratio ALT 99 H (10-49) U/L Total Protein 5.9 L (6.2-8.2) g/dL Albumin 3.0 L (3.8-4.9) g/dL Albumin/Globulin Ratio 1.03 L (1.60-3.17) g/dL Microbiology - Last 24 Hours (Table) 09/04/22 11:25 Blood Culture - Preliminary Blood No Growth after 24 hours Assessment and Plan Assessment: Acute hypoxemic respiratory failure secondary to left-sided pneumonia. History of coronavirus infection, and possible coronavirus associated pneumonia. History of coronary artery disease, with previous stenting. History of atrial flutter. History of CHF. History of COPD, from previous tobacco use. History of hyperlipidemia. History of hypertension. History of deafness. History of GERD. History of gout. Multiple other medical problems and comorbidities. Plan: Plan dated 08/30/2022. The patient is currently an albuterol inhaler, and Symbicort. In addition, he is getting vitamin C, vitamin D3, and zinc. The patient is ready on a factor X a inhibitor because of his atrial flutter. The patient is also on Rocephin, and is getting Zithromax. This is because he may in fact have only community- acquired pneumonia. The patient may or may not have coronavirus associated pneumonia. In my opinion, he is not behaving that way at this time. Finally, the patient's getting Decadron 6 mg a day. We will continue to follow make recommendations where appropriate. Labs, x-rays, and medications are all reviewed. The patient appears to be relatively stable at this time. Plan dated 09/02/2022. The patient appears to be improving. He continues on an albuterol inhaler, vitamin C, vitamin D3, and zinc, Symbicort, Decadron, and Rocephin. In addition, I did add some Tessalon Perles, 200 mg 3 times a day for his cough. His cough is nonproductive. He denies any shortness of breath. His 2 L saturation is 98%. Labs, x-rays, and medications are all reviewed. Plan dated 09/06/2022. Currently, the patient's on room air. He is getting saline at 20 mL an hour. Per infectious diseases, the patient is on clindamycin, and cefepime. He is also receiving Symbicort, an albuterol inhaler. He is getting appropriate vitamins. No additional recommendations are made. We will continue to follow. Recent computed tomography scan of the chest reveals a masslike consolidation with some central cavitation in the left lung, involving the left upper lobe, and left lower lobe. Bronchoscopy, should be done eventually. We will continue to follow. The patient's on appropriate medications, steroids, vitamins, and antibiotics. Time with Patient: Less than 30
[2022-09-07] MEDS: CLINDAMYCIN 600 MG in DEXTROSE 5% IN WATER 50 ML IVPB SCH ×8 (00:11→23:32)
[2022-09-07] MEDS: CEFEPIME 2 GM in SODIUM CHLORIDE 0.9% 100 ML IVPB SCH ×2 (01:02→11:30)
[2022-09-07] MEDS: PANTOPRAZOLE 40 MG TABLET PO SCH (06:55)
[2022-09-07] MEDS: DEXAMETHASONE SOD PHOSPHATE 10 MG/ML 1 ML VIAL IVP SCH (08:01)
[2022-09-07] MEDS: BENZONATATE 100 MG CAP PO SCH ×3 (08:01→20:11)
[2022-09-07] MEDS: ATORVASTATIN 20 MG TAB PO SCH (08:02)
[2022-09-07] MEDS: DIGOXIN 125 MCG TAB PO SCH (08:02)
[2022-09-07] MEDS: CHOLECALCIFEROL 25 MCG (1000 IU) TABLET PO SCH (08:02)
[2022-09-07] MEDS: APIXABAN 2.5 MG TABLET PO SCH ×2 (08:02→20:11)
[2022-09-07] MEDS: ASCORBIC ACID 500 MG TAB PO SCH (08:02)
[2022-09-07] MEDS: CLOPIDOGREL 75 MG TAB PO SCH (08:02)
[2022-09-07] MEDS: ZINC SULFATE 220 MG CAP PO SCH (08:02)
[2022-09-07] MEDS: ALBUTEROL HFA INHALER INHALATION SCH ×4 (08:11→19:20)
[2022-09-07] MEDS: SYMBICORT 160-4.5 MCG INHALER INHALATION SCH ×2 (08:11→19:20)
[2022-09-07] MEDS: methocarbamoL 750 MG TAB PO PRN ×2 (09:10→16:22)
[2022-09-07 11:17] LABS: African American GFR (CKD) 80.9 (60.0-200.0); Anion Gap 9.5 mmol/L (10.00-18.00); BUN/Creat Ratio 37.8 Ratio (12.00-20.00); Blood Urea Nitrogen 37.8 mg/dL (9.0-27.0); Calcium 9.3 mg/dL (8.7-10.3); Carbon Dioxide 25.5 mmol/L (20.0-27.5); Non-African American GFR(CKD) 69.8 (60.0-200.0); Potassium 5.4 mmol/L (3.5-5.5)
[2022-09-07 11:32] LABS: HGB 14.7 g/dL (13.0-17.0); MCH 30.4 pg (27.0-32.0); MCHC 32.7 g/dL (32.0-37.0); MCV 93.2 fL (80.0-97.0); Mean Platelet Volume 10.1 fL (9.5-12.2); NRBC Per 100 WBC 0 /100 WBCS (0.0-0.0); Platelet Count 411 X 10*3/uL (140-440); RBC 4.83 X 10*6/uL (4.40-5.60); RDW 16.2 % (11.5-14.5); WBC 19.68 X 10*3/uL (4.50-10.00)
[2022-09-07 11:33] LABS: Basophils # (M) 0 X 10*3/uL (0.00-0.10); Lymphocytes # (M) 1.97 X 10*3/uL (0.90-5.00); Metamyelocytes % 2 % (0-0); Monocytes # (M) 1.38 X 10*3/uL (0.20-1.00); Myelocytes % 1 % (0-0); Neutrophils # (M) 15.55 X 10*3/uL (2.00-8.90); Neutrophils % (M) 79 %
--- NOTE | 2022-09-07 12:05 | P.PN ---
Subjective Progress Note Date: 09/07/22 Principal diagnosis: Shortness of breath. 81-year-old male, who presents to the emergency department, on August 28, complaining of generalized weakness, chills, and fatigue. The patient was tested for coronavirus, by nasal swab, and was positive. Patient was to be [facility] to the shelter, but given the positive nasal swab for coronavirus, the patient was admitted to the hospital. We were consulted because of the patient's shortness of breath, and cough. Currently, he's on 2 L of oxygen. He's not receiving any IV fluids. He is not manifesting any overt signs of respiratory distress. He has a history of atrial flutter, CAD, heart failure, COPD, GERD, hyperlipidemia, hypertension, and osteoarthritis, among other things. White count 23, hemoglobin 14.4, hematocrit 44.5, platelet count 254,000. Sodium 138, potassium 4.7, chlorides 101, CO2 26, anion gap 11, BUN 24, creatinine 1.1. The patient's chest x-ray shows evidence of left-sided pneumonia. The patient's pro-calcitonin level is 0.19. The patient is seen today 08/31/2022 in follow-up on the regular medical floor. He is currently sitting up at the bedside. Awake and alert in no acute distres s. He is maintaining O2 saturations in the 90s on room air. No IV fluids. White count 20.8. Hemoglobin 14.1. Sodium 134. Potassium 4.2. BUN 26. Creatinine 0.88. Glucose 143. He is continued on vitamin supplements, anticoagulated with Eliquis, remains on Decadron. Blood culture with coag-n egative staph. Currently on ceftriaxone. The patient is seen today 09/01/2022 in follow-up on the regular medical floor. He is awake and alert in no acute distress. Maintaining good O2 saturations in the 90s on 2 L/m per nasal cannula. Afebrile. He is continued on Symbicort, albuterol, Decadron and vitamin supplements. Anticoagulated with Eliquis. Remains on antibiotics in the form of ceftriaxone. Follow-up chest x-ray in a.m. Progress note dated 09/02/2022. The patient is seen in room 456. He is currently on 2 L. He's not receiving any IV fluids. The patient does complain about his cough. I had some Tessalon Perles, 200 mg, 3 times a day. He denies any significant shortness of breath. He is not producing any phlegm when he coughs. He denies any fever or chills. He denies any chest pain or chest discomfort. White count 24.3, hemoglobin 13.6, hematocrit 41.9, and platelet count 291,000. Blood cultures are positive for staph hominis. Chest x-ray is showing some patchy infiltrates in the left lung, which could be pneumonia and/or atelectasis. Progress note dated 09/06/2022. The patient was last seen on September 02. He still in room 456. He's currently on room air. He is getting saline at 20 mL an hour. The patient appears not have any complaints of shortness of breath, cough, wheezing, or phlegm production. He denies any chest pain or chest discomfort. He seems to be resting comfortably. Initially was admitted through the emergency department on August 28, with generalized weakness, chills and fatigue. The patient did test positive for coronavirus. White count 19.47, hemoglobin 15.3, hematocrit 47.4, with a platelet count of 398,000. Sodium 132, potassium 5.3, chloride 98, CO2 26, BUN 35, and creatinine 1. Pro-calcitonin level was 0.11. Progress note dated 09/07/2022. The patient was last seen by me yesterday, September 06, and prior to that, on September 02. He is still in room 456. He is currently on room air. He is getting saline at 20 mL an hour. He denies any shortness of breath, cough, wheezing, or phlegm production. He also denies any chest pain or chest pressure. White count 19.68, hemoglobin, and hematocrit, and platelet count all normal. Sodium 135, potassium 5.4, chlorides 100, CO2 26, BUN 38, and creatinine 1. Most recent blood cultures on September 04 are negative. Objective - Vital Signs Vital signs: Vital Signs Temp 97.6 F 09/07/22 08:00 Pulse 69 09/07/22 08:02 Resp 18 09/07/22 08:02 BP 135/85 09/07/22 08:00 Pulse Ox 96 09/07/22 08:00 FiO2 Intake & Output 09/06/22 09/07/22 09/07/22 18:59 06:59 18:59 Intake Total 100 Output Total 700 Balance 100 -700 Intake: Intake, IV Titration 100 Amount Cefepime 2 gm In Sodium 100 Chloride 0.9% 100 ml @ 25 mls/hr IVPB Q12H [facility] Rx# :[id number] Output: Urine 700 Other: Voiding Method Incontinent Incontinent Incontinent External Catheter External Catheter External Catheter # Bowel Movements 1 - Exam No acute distress, oriented 3. Currently on room air. No conversational dyspnea, use of accessory muscles, or audible wheezing. HEENT examination is grossly unremarkable. Neck supple. Full range of motion. No adenopathy thyromegaly or neck vein distention. Cardiovascular examination reveals regular rhythm rate. S1-S2 normal. No S3 or S4. No discernible murmur noted. Heart sounds are distant. Heart rate 69 bpm. Lungs reveal scattered bilateral rhonchi. No wheezes, or crackles. Breath sounds equal bilaterally. Room air saturation is 96 %. Abdomen soft bowel sounds are heard. No masses or tenderness. Extremities are intact. No cyanosis clubbing or edema. Skin is without rash or lesion. Neurologic examination is brief but nonfocal. - Labs CBC & Chem 7: 09/07/22 06:26 09/07/22 06:26 Labs: Abnormal Lab Results - Last 24 Hours (Table) 09/07/22 09/07/22 Range/Units 06:26 06:26 WBC 19.68 H (4.50-10.00) X 10*3/uL RDW 16.2 H (11.5-14.5) % Metamyelocytes % 2 H (0-0) % Myelocytes % 1 H (0-0) % Neutrophils # (Manual) 15.55 H (2.00-8.90) X 10*3/uL Monocytes # (Manual) 1.38 H (0.20-1.00) X 10*3/uL Anion Gap 9.50 L (10.00-18.00) mmol/L BUN 37.8 H (9.0-27.0) mg/dL BUN/Creatinine Ratio 37.80 H (12.00-20.00) Ratio Microbiology - Last 24 Hours (Table) 09/04/22 11:25 Blood Culture - Preliminary Blood No Growth after 48 hours Assessment and Plan Assessment: Acute hypoxemic respiratory failure secondary to left-sided pneumonia. History of coronavirus infection, and possible coronavirus associated pneumonia. History of coronary artery disease, with previous stenting. History of atrial flutter. History of CHF. History of COPD, from previous tobacco use. History of hyperlipidemia. History of hypertension. History of deafness. History of GERD. History of gout. Multiple other medical problems and comorbidities. Plan: Plan dated 08/30/2022. The patient is currently an albuterol inhaler, and Symbicort. In addition, he is getting vitamin C, vitamin D3, and zinc. The patient is ready on a factor X a inhibitor because of his atrial flutter. The patient is also on Rocephin, and is getting Zithromax. This is because he may in fact have only community- acquired pneumonia. The patient may or may not have coronavirus associated pneumonia. In my opinion, he is not behaving that way at this time. Finally, the patient's getting Decadron 6 mg a day. We will continue to follow make recommendations where appropriate. Labs, x-rays, and medications are all reviewed. The patient appears to be relatively stable at this time. Plan dated 09/02/2022. The patient appears to be improving. He continues on an albuterol inhaler, vitamin C, vitamin D3, and zinc, Symbicort, Decadron, and Rocephin. In addition, I did add some Tessalon Perles, 200 mg 3 times a day for his cough. His cough is nonproductive. He denies any shortness of breath. His 2 L saturation is 98%. Labs, x-rays, and medications are all reviewed. Plan dated 09/06/2022. Currently, the patient's on room air. He is getting saline at 20 mL an hour. Per infectious diseases, the patient is on clindamycin, and cefepime. He is also receiving Symbicort, an albuterol inhaler. He is getting appropriate vitamins. No additional recommendations are made. We will continue to follow. Recent computed tomography scan of the chest reveals a masslike consolidation with some central cavitation in the left lung, involving the left upper lobe, and left lower lobe. Bronchoscopy, should be done eventually. We will continue to follow. The patient's on appropriate medications, steroids, vitamins, and antibiotics. Plan dated 09/07/2022. Currently, the patient's on room air. Most recent chest x-ray done September 05 shows improving infiltrates. The right lung is clear. The patient could be discharged home in my opinion. He is on room air. The patient does need follow-up post discharge. He apparently has a computed tomography scan showing a masslike consolidation with some central cavitation in the left lung. He may benefit from bronchoscopy in the future. Prognosis is guarded. He did test positive for coronavirus on this admission. Time with Patient: Less than 30
[2022-09-07] MEDS: HYDROcodone/APAP 5-325MG 1 EACH TAB PO PRN (23:31)
[2022-09-08] MEDS: CEFEPIME 2 GM in SODIUM CHLORIDE 0.9% 100 ML IVPB SCH ×2 (01:41→12:39)
[2022-09-08] MEDS: SYMBICORT 160-4.5 MCG INHALER INHALATION SCH ×2 (08:46→20:51)
[2022-09-08] MEDS: ALBUTEROL HFA INHALER INHALATION SCH ×4 (08:46→20:51)
[2022-09-08] MEDS: PANTOPRAZOLE 40 MG TABLET PO SCH (09:34)
[2022-09-08] MEDS: CLINDAMYCIN 600 MG in DEXTROSE 5% IN WATER 50 ML IVPB SCH ×6 (09:41→23:07)
[2022-09-08] MEDS: DEXAMETHASONE SOD PHOSPHATE 10 MG/ML 1 ML VIAL IVP SCH (09:43)
[2022-09-08] MEDS: ASCORBIC ACID 500 MG TAB PO SCH ×2 (09:45→10:06)
[2022-09-08] MEDS: BENZONATATE 100 MG CAP PO SCH ×3 (09:45→21:05)
[2022-09-08] MEDS: DIGOXIN 125 MCG TAB PO SCH (09:45)
[2022-09-08] MEDS: ZINC SULFATE 220 MG CAP PO SCH (09:45)
[2022-09-08] MEDS: ATORVASTATIN 20 MG TAB PO SCH (09:45)
[2022-09-08] MEDS: CLOPIDOGREL 75 MG TAB PO SCH (09:45)
[2022-09-08] MEDS: CHOLECALCIFEROL 25 MCG (1000 IU) TABLET PO SCH (09:45)
[2022-09-08] MEDS: APIXABAN 2.5 MG TABLET PO SCH ×2 (09:45→21:05)
--- NOTE | 2022-09-08 10:55 | P.PN ---
Subjective Progress Note Date: 09/08/22 Principal diagnosis: Shortness of breath. 81-year-old male, who presents to the emergency department, on August 28, complaining of generalized weakness, chills, and fatigue. The patient was tested for coronavirus, by nasal swab, and was positive. Patient was to be discharged to the care home, but given the positive nasal swab for coronavirus, the patient was admitted to the hospital. We were consulted because of the patient's shortness of breath, and cough. Currently, he's on 2 L of oxygen. He's not receiving any IV fluids. He is not manifesting any overt signs of respiratory distress. He has a history of atrial flutter, CAD, heart failure, COPD, GERD, hyperlipidemia, hypertension, and osteoarthritis, among other things. White count 23, hemoglobin 14.4, hematocrit 44.5, platelet count 254,000. Sodium 138, potassium 4.7, chlorides 101, CO2 26, anion gap 11, BUN 24, creatinine 1.1. The patient's chest x-ray shows evidence of left-sided pneumonia. The patient's pro-calcitonin level is 0.19. The patient is seen today 08/31/2022 in follow-up on the regular medical floor. He is currently sitting up at the bedside. Awake and alert in no acute distres s. He is maintaining O2 saturations in the 90s on room air. No IV fluids. White count 20.8. Hemoglobin 14.1. Sodium 134. Potassium 4.2. BUN 26. Creatinine 0.88. Glucose 143. He is continued on vitamin supplements, anticoagulated with Eliquis, remains on Decadron. Blood culture with coag-n egative staph. Currently on ceftriaxone. The patient is seen today 09/01/2022 in follow-up on the regular medical floor. He is awake and alert in no acute distress. Maintaining good O2 saturations in the 90s on 2 L/m per nasal cannula. Afebrile. He is continued on Symbicort, albuterol, Decadron and vitamin supplements. Anticoagulated with Eliquis. Remains on antibiotics in the form of ceftriaxone. Follow-up chest x-ray in a.m. Progress note dated 09/02/2022. The patient is seen in room 456. He is currently on 2 L. He's not receiving any IV fluids. The patient does complain about his cough. I had some Tessalon Perles, 200 mg, 3 times a day. He denies any significant shortness of breath. He is not producing any phlegm when he coughs. He denies any fever or chills. He denies any chest pain or chest discomfort. White count 24.3, hemoglobin 13.6, hematocrit 41.9, and platelet count 291,000. Blood cultures are positive for staph hominis. Chest x-ray is showing some patchy infiltrates in the left lung, which could be pneumonia and/or atelectasis. Progress note dated 09/06/2022. The patient was last seen on September 02. He still in room 456. He's currently on room air. He is getting saline at 20 mL an hour. The patient appears not have any complaints of shortness of breath, cough, wheezing, or phlegm production. He denies any chest pain or chest discomfort. He seems to be resting comfortably. Initially was admitted through the emergency department on August 28, with generalized weakness, chills and fatigue. The patient did test positive for coronavirus. White count 19.47, hemoglobin 15.3, hematocrit 47.4, with a platelet count of 398,000. Sodium 132, potassium 5.3, chloride 98, CO2 26, BUN 35, and creatinine 1. Pro-calcitonin level was 0.11. Progress note dated 09/07/2022. The patient was last seen by me yesterday, September 06, and prior to that, on September 02. He is still in room 456. He is currently on room air. He is getting saline at 20 mL an hour. He denies any shortness of breath, cough, wheezing, or phlegm production. He also denies any chest pain or chest pressure. White count 19.68, hemoglobin, and hematocrit, and platelet count all normal. Sodium 135, potassium 5.4, chlorides 100, CO2 26, BUN 38, and creatinine 1. Most recent blood cultures on September 04 are negative. Progress note dated 09/08/2022. The patient is seen today in room 456. He is on room air. He is getting saline at 20 mL an hour. He denies being short of breath. He denies any chest pain or chest discomfort. He is not coughing up any phlegm. In fact, he looks rather stable. No new labs today. The labs from September 07 are reviewed. Blood cultures from August 26 show evidence of Staphylococcus hominis. No recent chest x-ray. Objective - Vital Signs Vital signs: Vital Signs Temp 97.4 F L 09/07/22 18:59 Pulse 70 09/08/22 10:05 Resp 16 09/07/22 18:59 BP 124/73 09/08/22 09:41 Pulse Ox 93 L 09/08/22 10:05 FiO2 Intake & Output 09/07/22 09/08/22 09/08/22 18:59 06:59 18:59 Intake Total 200 Balance 200 Intake: Intake, IV Titration 200 Amount Cefepime 2 gm In Sodium 100 Chloride 0.9% 100 ml @ 25 mls/hr IVPB Q12H [facility] Rx# :[id number] Clindamycin 600 mg In 100 Dextrose 5% in Water 50 ml @ 50 mls/hr IVPB Q8HR [facility] Rx#:[id number] Other: Voiding Method Incontinent Incontinent Diaper External Catheter External Catheter Incontinent External Catheter # Bowel Movements 1 - Exam No acute distress, oriented 3. Currently on room air. No conversational dyspnea, use of accessory muscles, or audible wheezing. HEENT examination is grossly unremarkable. Neck supple. Full range of motion. No adenopathy thyromegaly or neck vein distention. Cardiovascular examination reveals regular rhythm rate. S1-S2 normal. No S3 or S4. No discernible murmur noted. Heart sounds are distant. Heart rate 70 bpm. Lungs reveal scattered bilateral rhonchi. No wheezes, or crackles. Breath sounds equal bilaterally. Room air saturation is 95 %. Abdomen soft bowel sounds are heard. No masses or tenderness. Extremities are intact. No cyanosis clubbing or edema. Skin is without rash or lesion. Neurologic examination is brief but nonfocal. - Labs CBC & Chem 7: 09/07/22 06:26 09/07/22 06:26 Labs: Abnormal Lab Results - Last 24 Hours (Table) 09/07/22 09/07/22 Range/Units 06:26 06:26 WBC 19.68 H (4.50-10.00) X 10*3/uL RDW 16.2 H (11.5-14.5) % Metamyelocytes % 2 H (0-0) % Myelocytes % 1 H (0-0) % Neutrophils # (Manual) 15.55 H (2.00-8.90) X 10*3/uL Monocytes # (Manual) 1.38 H (0.20-1.00) X 10*3/uL Anion Gap 9.50 L (10.00-18.00) mmol/L BUN 37.8 H (9.0-27.0) mg/dL BUN/Creatinine Ratio 37.80 H (12.00-20.00) Ratio Microbiology - Last 24 Hours (Table) 09/04/22 11:25 Blood Culture - Preliminary Blood No Growth after 72 hours Assessment and Plan Assessment: Acute hypoxemic respiratory failure secondary to left-sided pneumonia. History of coronavirus infection, and possible coronavirus associated pneumonia. History of coronary artery disease, with previous stenting. History of atrial flutter. History of CHF. History of COPD, from previous tobacco use. History of hyperlipidemia. History of hypertension. History of deafness. History of GERD. History of gout. Multiple other medical problems and comorbidities. Plan: Plan dated 08/30/2022. The patient is currently an albuterol inhaler, and Symbicort. In addition, he is getting vitamin C, vitamin D3, and zinc. The patient is ready on a factor X a inhibitor because of his atrial flutter. The patient is also on Rocephin, and is getting Zithromax. This is because he may in fact have only community- acquired pneumonia. The patient may or may not have coronavirus associated pneumonia. In my opinion, he is not behaving that way at this time. Finally, the patient's getting Decadron 6 mg a day. We will continue to follow make recommendations where appropriate. Labs, x-rays, and medications are all reviewed. The patient appears to be relatively stable at this time. Plan dated 09/02/2022. The patient appears to be improving. He continues on an albuterol inhaler, vitamin C, vitamin D3, and zinc, Symbicort, Decadron, and Rocephin. In addition, I did add some Tessalon Perles, 200 mg 3 times a day for his cough. His cough is nonproductive. He denies any shortness of breath. His 2 L saturation is 98%. Labs, x-rays, and medications are all reviewed. Plan dated 09/06/2022. Currently, the patient's on room air. He is getting saline at 20 mL an hour. Per infectious diseases, the patient is on clindamycin, and cefepime. He is also receiving Symbicort, an albuterol inhaler. He is getting appropriate vitamins. No additional recommendations are made. We will continue to follow. Recent computed tomography scan of the chest reveals a masslike consolidation with some central cavitation in the left lung, involving the left upper lobe, and left lower lobe. Bronchoscopy, should be done eventually. We will continue to follow. The patient's on appropriate medications, steroids, vitamins, and antibiotics. Plan dated 09/07/2022. Currently, the patient's on room air. Most recent chest x-ray done September 05 shows improving infiltrates. The right lung is clear. The patient could be discharged home in my opinion. He is on room air. The patient does need follow-up post discharge. He apparently has a computed tomography scan showing a masslike consolidation with some central cavitation in the left lung. He may benefit from bronchoscopy in the future. Prognosis is guarded. He did test positive for coronavirus on this admission. Plan dated 09/08/2022. The patient appears to be stable and doing relatively well. We will continue to follow. Labs, x-rays, and medications are reviewed. The patient continues on clindamycin, and cefepime as per infectious diseases. Prognosis remains guarded. Bronchoscopy in the future, is likely indicated. Time with Patient: Less than 30
[2022-09-08] MEDS: ONDANSETRON 4 MG/2 ML VIAL IVP PRN (11:27)
[2022-09-08] MEDS ORDERED: BENZOCAINE/MENTHOL LOZENG 1 EACH LOZENGE MUCOUS MEM PRN (12:24)
[2022-09-08] MEDS: HYDROcodone/APAP 5-325MG 1 EACH TAB PO PRN (19:27)
--- NOTE | 2022-09-08 23:32 | P.PN ---
Subjective Progress Note Date: 09/08/22 Principal diagnosis: Pneumonia and positive blood culture Patient is a 81-year-old male presenting to the hospital initially on 08/28/2021 weakness and chills patient did have a diagnoses of covid 19 infection did have a positive blood culture which staphylococcus hominis likely skin contamination, the patient did have a CT of the chest did shows left upper lobe consultation with some cavitation. On today's evaluation that is 09/08/2022, the patient denies any fever or any chills, the patient is breathing comfortably on room air, the patient denies having any chest pain, the patient continued to have a cough but denies any worsening cough or sputum production, denies having any nausea and vomiting no choking on food, no abdominal pain no diarrhea Objective - Vital Signs Vital signs: Vital Signs Temp 97.7 F 09/08/22 14:00 Pulse 78 09/08/22 14:00 Resp 17 09/08/22 14:00 BP 155/77 09/08/22 14:00 Pulse Ox 93 L 09/08/22 14:00 FiO2 Intake & Output 09/07/22 09/08/22 09/08/22 18:59 06:59 18:59 Intake Total 200 Balance 200 Intake: Intake, IV Titration 200 Amount Cefepime 2 gm In Sodium 100 Chloride 0.9% 100 ml @ 25 mls/hr IVPB Q12H [facility] Rx# :[id number] Clindamycin 600 mg In 100 Dextrose 5% in Water 50 ml @ 50 mls/hr IVPB Q8HR [facility] Rx#:[id number] Other: Voiding Method Incontinent Incontinent Diaper External Catheter External Catheter Incontinent External Catheter # Bowel Movements 1 - Exam GENERAL DESCRIPTION: An elderly male lying in bed in no distress RESPIRATORY SYSTEM: Unlabored breathing , decreased breath sounds at bases HEART: S1 S2 regular rate and rhythm , ABDOMEN: Soft , no tenderness EXTREMITIES: No edema feet - Labs CBC & Chem 7: 09/07/22 06:26 09/07/22 06:26 Labs: Microbiology - Last 24 Hours (Table) 09/04/22 11:25 Blood Culture - Preliminary Blood No Growth after 96 hours Assessment and Plan (1) Pneumonia Current Visit: Yes Status: Acute Code(s): J18.9 - PNEUMONIA, UNSPECIFIED ORGANISM SNOMED Code(s): 177674600 Plan: 1patient presented to the hospital with weakness and a fall in this patient now with the CT of the chest did shows cavitary infiltrate in the left lower lobe and large area of consolidation in the left upper lobe with concern for possible aspiration pneumonia or developing abscess. 2sputum for gram stain culture has been requested however has not collected. 3patient benefit from bronchoscopy lavage and possible biopsy to rule out malignancy pulmonary is following the patient closely. 4patient remains to be afebrile, patient to continue with cefepime and clindamycin we will repeat a chest x-ray and a inflammatory markers with a.m. lab Time with Patient: Less than 30
[2022-09-09] MEDS: CEFEPIME 2 GM in SODIUM CHLORIDE 0.9% 100 ML IVPB SCH ×2 (00:23→13:04)
[2022-09-09] MEDS: methocarbamoL 750 MG TAB PO PRN (01:25)
--- NOTE | 2022-09-09 08:00 | XR ---
EXAMINATION TYPE: XR chest 2V DATE OF EXAM: 09/09/2022 7:44 AM COMPARISON: Chest radiographs from 09/05/2022 TECHNIQUE: XR chest 2V Frontal and lateral views of the chest. CLINICAL INDICATION:Male, 81 years old with history of Pneumonia; FINDINGS: Lungs/Pleura: Increased multifocal airspace opacities. No evidence of pneumothorax or pleural effusio n. Pulmonary vascularity: Unremarkable. Heart/mediastinum: Cardiomediastinal silhouette is unremarkable. Musculoskeletal: No acute osseous pathology. IMPRESSION: Worsening multifocal airspace opacities
[2022-09-09] MEDS: SYMBICORT 160-4.5 MCG INHALER INHALATION SCH ×2 (08:13→20:53)
[2022-09-09] MEDS: ALBUTEROL HFA INHALER INHALATION SCH ×4 (08:13→20:53)
[2022-09-09] MEDS: CLINDAMYCIN 600 MG in DEXTROSE 5% IN WATER 50 ML IVPB SCH ×6 (09:40→23:02)
[2022-09-09] MEDS: HYDROcodone/APAP 5-325MG 1 EACH TAB PO PRN (09:40)
[2022-09-09] MEDS: CHOLECALCIFEROL 25 MCG (1000 IU) TABLET PO SCH (09:41)
[2022-09-09] MEDS: DEXAMETHASONE SOD PHOSPHATE 10 MG/ML 1 ML VIAL IVP SCH (09:41)
[2022-09-09] MEDS: BENZONATATE 100 MG CAP PO SCH ×3 (09:41→21:45)
[2022-09-09] MEDS: PANTOPRAZOLE 40 MG TABLET PO SCH (09:42)
[2022-09-09] MEDS: ZINC SULFATE 220 MG CAP PO SCH (09:42)
[2022-09-09] MEDS: DIGOXIN 125 MCG TAB PO SCH (09:42)
[2022-09-09] MEDS: CLOPIDOGREL 75 MG TAB PO SCH (09:42)
[2022-09-09] MEDS: ASCORBIC ACID 500 MG TAB PO SCH (09:42)
[2022-09-09] MEDS: ATORVASTATIN 20 MG TAB PO SCH (09:42)
[2022-09-09] MEDS: APIXABAN 2.5 MG TABLET PO SCH ×2 (09:42→21:45)
[2022-09-09 12:06] LABS: African American GFR (CKD) 92.2 (60.0-200.0); Blood Urea Nitrogen 31.4 mg/dL (9.0-27.0); C Reactive Protein <0.30 mg/dL (0.00-0.80); Calcium 9.2 mg/dL (8.7-10.3); Carbon Dioxide 26.7 mmol/L (20.0-27.5); Chloride 97 mmol/L (96-109); Glucose 72 mg/dL (70-110); Non-African American GFR(CKD) 79.6 (60.0-200.0); Potassium 5.7 mmol/L (3.5-5.5); Sodium 133 mmol/L (135-145)
--- NOTE | 2022-09-09 12:22 | P.PN ---
Subjective Progress Note Date: 09/09/22 Principal diagnosis: Shortness of breath. 81-year-old male, who presents to the emergency department, on August 28, complaining of generalized weakness, chills, and fatigue. The patient was tested for coronavirus, by nasal swab, and was positive. Patient was to be discharged to the custodial, but given the positive nasal swab for coronavirus, the patient was admitted to the hospital. We were consulted because of the patient's shortness of breath, and cough. Currently, he's on 2 L of oxygen. He's not receiving any IV fluids. He is not manifesting any overt signs of respiratory distress. He has a history of atrial flutter, CAD, heart failure, COPD, GERD, hyperlipidemia, hypertension, and osteoarthritis, among other things. White count 23, hemoglobin 14.4, hematocrit 44.5, platelet count 254,000. Sodium 138, potassium 4.7, chlorides 101, CO2 26, anion gap 11, BUN 24, creatinine 1.1. The patient's chest x-ray shows evidence of left-sided pneumonia. The patient's pro-calcitonin level is 0.19. The patient is seen today 08/31/2022 in follow-up on the regular medical floor. He is currently sitting up at the bedside. Awake and alert in no acute distres s. He is maintaining O2 saturations in the 90s on room air. No IV fluids. White count 20.8. Hemoglobin 14.1. Sodium 134. Potassium 4.2. BUN 26. Creatinine 0.88. Glucose 143. He is continued on vitamin supplements, anticoagulated with Eliquis, remains on Decadron. Blood culture with coag-n egative staph. Currently on ceftriaxone. The patient is seen today 09/01/2022 in follow-up on the regular medical floor. He is awake and alert in no acute distress. Maintaining good O2 saturations in the 90s on 2 L/m per nasal cannula. Afebrile. He is continued on Symbicort, albuterol, Decadron and vitamin supplements. Anticoagulated with Eliquis. Remains on antibiotics in the form of ceftriaxone. Follow-up chest x-ray in a.m. Progress note dated 09/02/2022. The patient is seen in room 456. He is currently on 2 L. He's not receiving any IV fluids. The patient does complain about his cough. I had some Tessalon Perles, 200 mg, 3 times a day. He denies any significant shortness of breath. He is not producing any phlegm when he coughs. He denies any fever or chills. He denies any chest pain or chest discomfort. White count 24.3, hemoglobin 13.6, hematocrit 41.9, and platelet count 291,000. Blood cultures are positive for staph hominis. Chest x-ray is showing some patchy infiltrates in the left lung, which could be pneumonia and/or atelectasis. Progress note dated 09/06/2022. The patient was last seen on September 02. He still in room 456. He's currently on room air. He is getting saline at 20 mL an hour. The patient appears not have any complaints of shortness of breath, cough, wheezing, or phlegm production. He denies any chest pain or chest discomfort. He seems to be resting comfortably. Initially was admitted through the emergency department on August 28, with generalized weakness, chills and fatigue. The patient did test positive for coronavirus. White count 19.47, hemoglobin 15.3, hematocrit 47.4, with a platelet count of 398,000. Sodium 132, potassium 5.3, chloride 98, CO2 26, BUN 35, and creatinine 1. Pro-calcitonin level was 0.11. Progress note dated 09/07/2022. The patient was last seen by me yesterday, September 06, and prior to that, on September 02. He is still in room 456. He is currently on room air. He is getting saline at 20 mL an hour. He denies any shortness of breath, cough, wheezing, or phlegm production. He also denies any chest pain or chest pressure. White count 19.68, hemoglobin, and hematocrit, and platelet count all normal. Sodium 135, potassium 5.4, chlorides 100, CO2 26, BUN 38, and creatinine 1. Most recent blood cultures on September 04 are negative. Progress note dated 09/08/2022. The patient is seen today in room 456. He is on room air. He is getting saline at 20 mL an hour. He denies being short of breath. He denies any chest pain or chest discomfort. He is not coughing up any phlegm. In fact, he looks rather stable. No new labs today. The labs from September 07 are reviewed. Blood cultures from August 26 show evidence of Staphylococcus hominis. No recent chest x-ray. This note dated 09/09/2022. 82-year-old male again seen in room 456. The patient is on room air. He is getting saline at 20 mL an hour. He appears to be a bit depressed. He denies shortness of breath, cough, wheezing, or phlegm production. He also denies any chest pain or chest discomfort. Sodium 133, potassium 5.7, chlorides 97, CO2 27, anion gap 10, BUN 31, creatinine 0.9. Pro-calcitonin level is 0.12. Today's chest x-ray shows bilateral infiltrates, may be a bit worse, left greater than right. The patient remains on cefepime and clindamycin as per infectious diseases. Objective - Vital Signs Vital signs: Vital Signs Temp 98.2 F 09/09/22 01:28 EST Pulse 64 09/09/22 01:28 EST Resp 17 09/09/22 01:28 EST BP 167/84 09/09/22 01:28 EST Pulse Ox 93 L 09/09/22 01:28 EST FiO2 Intake & Output 09/08/22 09/09/22 09/09/22 19:59 06:59 18:59 Intake Total Output Total Balance Intake: Oral Output: Urine Other: Voiding Method # Voids - Exam No acute distress, oriented 3. Currently on room air. No conversational dyspnea, use of accessory muscles, or audible wheezing. HEENT examination is grossly unremarkable. Neck supple. Full range of motion. No adenopathy thyromegaly or neck vein distention. Cardiovascular examination reveals regular rhythm rate. S1-S2 normal. No S3 or S4. No discernible murmur noted. Heart sounds are distant. Heart rate 64 bpm. Lungs reveal scattered bilateral rhonchi. No wheezes, or crackles. Breath sounds equal bilaterally. Room air saturation is 94 %. Abdomen soft bowel sounds are heard. No masses or tenderness. Extremities are intact. No cyanosis clubbing or edema. Skin is without rash or lesion. Neurologic examination is brief but nonfocal. - Labs CBC & Chem 7: 09/07/22 06:26 09/09/22 06:17 Labs: Abnormal Lab Results - Last 24 Hours (Table) 09/09/22 09/09/22 Range/Units 06:17 06:17 Sodium 133 L (135-145) mmol/L Potassium 5.7 H (3.5-5.5) mmol/L Anion Gap 9.80 L (10.00-18.00) mmol/L BUN 31.4 H (9.0-27.0) mg/dL BUN/Creatinine Ratio 35.20 H (12.00-20.00) Ratio Procalcitonin 0.12 H (0.02-0.09) ng/mL Microbiology - Last 24 Hours (Table) 09/04/22 11:25 Blood Culture - Preliminary Blood No Growth after 96 hours Assessment and Plan Assessment: Acute hypoxemic respiratory failure secondary to left-sided pneumonia. History of coronavirus infection, and possible coronavirus associated pneumonia. History of coronary artery disease, with previous stenting. History of atrial flutter. History of CHF. History of COPD, from previous tobacco use. History of hyperlipidemia. History of hypertension. History of deafness. History of GERD. History of gout. Multiple other medical problems and comorbidities. Plan: Plan dated 08/30/2022. The patient is currently an albuterol inhaler, and Symbicort. In addition, he is getting vitamin C, vitamin D3, and zinc. The patient is ready on a factor X a inhibitor because of his atrial flutter. The patient is also on Rocephin, and is getting Zithromax. This is because he may in fact have only community- acquired pneumonia. The patient may or may not have coronavirus associated pneumonia. In my opinion, he is not behaving that way at this time. Finally, the patient's getting Decadron 6 mg a day. We will continue to follow make recommendations where appropriate. Labs, x-rays, and medications are all reviewed. The patient appears to be relatively stable at this time. Plan dated 09/02/2022. The patient appears to be improving. He continues on an albuterol inhaler, vitamin C, vitamin D3, and zinc, Symbicort, Decadron, and Rocephin. In addition, I did add some Tessalon Perles, 200 mg 3 times a day for his cough. His cough is nonproductive. He denies any shortness of breath. His 2 L saturation is 98%. Labs, x-rays, and medications are all reviewed. Plan dated 09/06/2022. Currently, the patient's on room air. He is getting saline at 20 mL an hour. Per infectious diseases, the patient is on clindamycin, and cefepime. He is also receiving Symbicort, an albuterol inhaler. He is getting appropriate vitamins. No additional recommendations are made. We will continue to follow. Recent computed tomography scan of the chest reveals a masslike consolidation with some central cavitation in the left lung, involving the left upper lobe, and left lower lobe. Bronchoscopy, should be done eventually. We will continue to follow. The patient's on appropriate medications, steroids, vitamins, and an tibiotics. Plan dated 09/07/2022. Currently, the patient's on room air. Most recent chest x-ray done September 05 shows improving infiltrates. The right lung is clear. The patient could be discharged home in my opinion. He is on room air. The patient does need follow-up post discharge. He apparently has a computed tomography scan showing a masslike consolidation with some central cavitation in the left lung. He may benefit from bronchoscopy in the future. Prognosis is guarded. He did test positive for coronavirus on this admission. Plan dated 09/08/2022. The patient appears to be stable and doing relatively well. We will continue to follow. Labs, x-rays, and medications are reviewed. The patient continues on clindamycin, and cefepime as per infectious diseases. Prognosis remains guarded. Bronchoscopy in the future, is likely indicated. Plan dated 09/09/2022. The patient appears about the same, even though his chest x-ray maybe was a bit we'll he remains on room air. He is not manifesting any signs or symptoms of respiratory distress. The patient is on Symbicort, an albuterol inhaler, as well as cefepime and clindamycin as per infectious diseases. He also remains on Decadron, and so therefore, he is on all appropriate medications including vitamins. We will continue to follow and make recommendations along the way. Time with Patient: Less than 30
[2022-09-09 12:37] LABS: Basophils # (M) 0 X 10*3/uL (0.00-0.10); Eosinophils # (M) 0 X 10*3/uL (0.04-0.35); HCT 48.4 % (39.6-50.0); HGB 15.1 g/dL (13.0-17.0); Lymphocytes # (M) 1.86 X 10*3/uL (0.90-5.00); MCH 29.8 pg (27.0-32.0); MCHC 31.2 g/dL (32.0-37.0); MCV 95.7 fL (80.0-97.0); Metamyelocytes % 2 % (0-0); Monocytes # (M) 1.86 X 10*3/uL (0.20-1.00); Myelocytes % 2 % (0-0); NRBC Per 100 WBC 0 /100 WBCS (0.0-0.0); Neutrophils # (M) 16.15 X 10*3/uL (2.00-8.90); Neutrophils % (M) 78 %; Platelet Count 378 X 10*3/uL (140-440); RBC 5.06 X 10*6/uL (4.40-5.60); RDW 16.5 % (11.5-14.5)
[2022-09-10] MEDS: CEFEPIME 2 GM in SODIUM CHLORIDE 0.9% 100 ML IVPB SCH ×2 (00:28→12:12)
--- NOTE | 2022-09-10 01:09 | P.PN ---
Subjective Progress Note Date: 09/06/22 81-year-old male with a known history of atrial flutter, coronary artery disease with history of stent placement, hearing disorder/deafness, hypertension, hyperlipidemia, cellulitis, peripheral vascular disease and prior history of smoking presents to ER with complaints of generalized weakness and chills and shortness of breath. Patient was diagnosed with COVID-19 infection at outside hospital. [facility] but given COVID-19 positive status it was felt frequently discharged home. Patient has been having generalized weakness and falls at home. Patient has decreased oral intake.. Patient does have nausea. No chills or vomiting. No diarrhea. On admission patient was tachycardic and saturating at 96% on 2 L of oxygen via nasal cannula. Chest x-ray showed there is a left upper lobe and left lower lobe pneumonia which is mostly new compared to old exam. No heart failure seen. Laboratory data showed WBC 18.4 hemoglobin 15.8 and platelets 242 Sodium 136 potassium 3.9 chloride 100 bicarb is 24 BUN 19 and creatinine 0.92 and blood sugar is 125 Liver enzymes are not elevated. LDH 336 and CRP 21.8 troponin 0.031 and procalcitonin level is 0.19. Urinalysis is negative for infection COVID-19 PCR detected. 09/01/2022 Patient is seen and evaluated in follow-up on the regular medical floor. He is awake and alert in no acute distress. Maintaining good O2 saturations in the 90s on 2 L/m per nasal cannula. Afebrile. He is continued on Symbicort, albuterol, Decadron and vitamin supplements. Anticoagulated with Eliquis. Remains on antibiotics in the form of ceftriaxone. Follow-up chest x-ray in a.m. Pulmonary on board and recommending to continue with ceftriaxone; patient awaits placement to subacute rehab 09/02/2022 Patient is seen and evaluated and discussed with nursing staff; history of fall with laceration back of head with albert in place; patient does have occipital hematoma; plan is to take the albert out and wound care consult He is currently on 2 L. He's not receiving any IV fluids. The patient does complain about his cough. I had some Tessalon Perles, 200 mg, 3 times a day. He denies any significant shortness of breath. He is not producing any phlegm when he coughs. He denies any fever or chills. He denies any chest pain or chest discomfort. White count 24.3, hemoglobin 13.6, hematocrit 41.9, and platelet count 291,000. Blood cultures are positive for staph hominis. Chest x-ray is showing some patchy infiltrates in the left lung, which could be pneumonia and/or atelectasis. He continues on an albuterol inhaler, vitamin C, vitamin D3, and zinc, Symbicort, Decadron, and Rocephin. Discharge planning in progress 09/03/2022 pt is still tachypnic and with cough and phlegm , little amount, no chest pain he is awake and alert and knows he is in the hospital , however he has no insight into his illness, he thought he is in the hospital for his leg pain , i told him about his pna no GI or urinary complaint he has some right leg pain pulmonary team on the case and recommended ct of the chest which is pending now. 09/24/2020, Patient looks severely weak while lying in bed. Minimal tachypnea. Occasional cough. No chest pain and he is saturating 90% on room air. Computed tomography scan showing extensive left side infiltrate with cavitary lesion. Review of possible blood culture for staph hominis. Infectious disease consult is up-to-date and input is appreciated, antibiotics was adjusted to clindamycin and cefepime. He remains on dexamethasone for possible culprit Pulmonary team input is appreciated 09/05/2022 Patient still lethargic but clinically stable, he is improving slowly and gradually Vitals stable, oxygen saturation is acceptable He remains on clindamycin and cefepime and just x-ray from today showing improvement in infiltrate He is also on liquids home dose, multiple vitamins and Plavix. 09/06/2022 Patient is currently lying in the bed. Awake alert and oriented x3. He is let hargic. No complaints of chest pain or worsening shortness of breath. Patient is being continued on antibiotics cefepime and clindamycin for pneumonia. Also on dexamethasone 6 mg daily. Also on duo nebs. Laboratory data showed WBC 19.4, hemoglobin 13.3 and platelets 398 Sodium 132 potassium 5.3 chloride 198 BUN 35.1 and creatinine 1.0 Procalcitonin level is 0.11 Current medications reviewed. Objective - Vital Signs Vital signs: Vital Signs Temp 98.7 F 09/06/22 14:00 Pulse 57 L 09/06/22 14:00 Resp 16 09/06/22 14:00 BP 115/59 09/06/22 14:00 Pulse Ox 93 L 09/06/22 14:00 FiO2 Intake & Output 09/06/22 09/06/22 09/07/22 06:59 18:59 06:59 Intake Total 100 Output Total 1200 Balance -1200 100 Intake: Intake, IV Titration 100 Amount Cefepime 2 gm In Sodium 100 Chloride 0.9% 100 ml @ 25 mls/hr IVPB Q12H [facility] Rx# :[id number] Output: Urine 1200 Other: Voiding Method Incontinent Incontinent External Catheter External Catheter - Exam - Exam GENERAL: The patient is alert and oriented x3, not in any acute distress. Well developed, well nourished. HEENT: Pupils are round and equally reacting to light. EOMI. No scleral icterus. No conjunctival pallor. Normocephalic, atraumatic. No pharyngeal erythema. No thyromegaly. CARDIOVASCULAR: S1 and S2 present. No murmurs, rubs, or gallops. -PULMONARY: Chest is clear to auscultation, no wheezing or crackles. tachypnea with left side crepitation ABDOMEN: Soft, nontender, nondistended, normoactive bowel sounds. No palpable organomegaly. MUSCULOSKELETAL: No joint swelling or deformity. EXTREMITIES: No cyanosis, clubbing, or pedal edema. NEUROLOGICAL: Gross neurological examination did not reveal any focal deficits. SKIN: No rashes. no petechiae. - Labs CBC & Chem 7: 09/09/22 06:17 09/09/22 06:17 Labs: Abnormal Lab Results - Last 24 Hours (Table) 09/06/22 09/06/22 Range/Units 05:45 05:45 WBC 19.47 H (4.50-10.00) X 10*3/uL RDW 16.0 H (11.5-14.5) % Metamyelocytes % 2 H (0-0) % Myelocytes % 4 H (0-0) % Neutrophils # (Manual) 14.99 H (2.00-8.90) X 10*3/uL Monocytes # (Manual) 1.56 H (0.20-1.00) X 10*3/uL Eosinophils # (Manual) 0 L (0.04-0.35) X 10*3/uL Sodium 132 L (135-145) mmol/L Anion Gap 8.50 L (10.00-18.00) mmol/L BUN 35.1 H (9.0-27.0) mg/dL BUN/Creatinine Ratio 35.10 H (12.00-20.00) Ratio ALT 99 H (10-49) U/L Total Protein 5.9 L (6.2-8.2) g/dL Albumin 3.0 L (3.8-4.9) g/dL Albumin/Globulin Ratio 1.03 L (1.60-3.17) g/dL Microbiology - Last 24 Hours (Table) 09/04/22 11:25 Blood Culture - Preliminary Blood No Growth after 48 hours Assessment and Plan Assessment: Acute Left sided pneumonia Acute COVID-19 pneumonia-patient has not been vaccinated. Elevated inflammatory markers Acute hypoxic respiratory failure requiring oxygen at 2 L via nasal cannula. titrtae down to RA Generalized weakness and falls at home. Chronic atrial fibrillation/flutter on anticoagulation with Eliquis. Coronary disease history of stent placement GERD Hearing disorder/deafness Hypertension Hyperlipidemia Osteoarthritis Peripheral vascular disease with bilateral occluded SFA and bilateral popliteal arteries. History of gout Plan: Patient will be continued on oxygen supplementation. Was given antibiotics cefepime and clindamycin and dexamethasone for gram neg bacteria and covid pna. Infectious and pulmonary team on the case Due to hypoxia patient was started on dexamethasone 6 mg daily and continue with duo nebs and Symbicort.Continue with dexamethasone for 10 days. Continue supportive care with multivitamins and GI prophylaxis. dvt px : eliquis gi px: ppi prognosis is guarded Time with Patient: Greater than 30
--- NOTE | 2022-09-10 01:11 | P.PN ---
Subjective Progress Note Date: 09/07/22 81-year-old male with a known history of atrial flutter, coronary artery disease with history of stent placement, hearing disorder/deafness, hypertension, hyperlipidemia, cellulitis, peripheral vascular disease and prior history of smoking presents to ER with complaints of generalized weakness and chills and shortness of breath. Patient was diagnosed with COVID-19 infection at outside hospital. Plan was to discharge [facility] to [facility] but given COVID-19 positive status it was felt frequently discharged home. Patient has been having generalized weakness and falls at home. Patient has decreased oral intake.. Patient does have nausea. No chills or vomiting. No diarrhea. On admission patient was tachycardic and saturating at 96% on 2 L of oxygen via nasal cannula. Chest x-ray showed there is a left upper lobe and left lower lobe pneumonia which is mostly new compared to old exam. No heart failure seen. Laboratory data showed WBC 18.4 hemoglobin 15.8 and platelets 242 Sodium 136 potassium 3.9 chloride 100 bicarb is 24 BUN 19 and creatinine 0.92 and blood sugar is 125 Liver enzymes are not elevated. LDH 336 and CRP 21.8 troponin 0.031 and procalcitonin level is 0.19. Urinalysis is negative for infection COVID-19 PCR detected. 09/01/2022 Patient is seen and evaluated in follow-up on the regular medical floor. He is awake and alert in no acute distress. Maintaining good O2 saturations in the 90s on 2 L/m per nasal cannula. Afebrile. He is continued on Symbicort, albuterol, Decadron and vitamin supplements. Anticoagulated with Eliquis. Remains on antibiotics in the form of ceftriaxone. Follow-up chest x-ray in a.m. Pulmonary on board and recommending to continue with ceftriaxone; patient awaits placement to subacute rehab 09/02/2022 Patient is seen and evaluated and discussed with nursing staff; history of fall with laceration back of head with albert in place; patient does have occipital hematoma; plan is to take the albert out and wound care consult He is currently on 2 L. He's not receiving any IV fluids. The patient does complain about his cough. I had some Tessalon Perles, 200 mg, 3 times a day. He denies any significant shortness of breath. He is not producing any phlegm when he coughs. He denies any fever or chills. He denies any chest pain or chest discomfort. White count 24.3, hemoglobin 13.6, hematocrit 41.9, and platelet count 291,000. Blood cultures are positive for staph hominis. Chest x-ray is showing some patchy infiltrates in the left lung, which could be pneumonia and/or atelectasis. He continues on an albuterol inhaler, vitamin C, vitamin D3, and zinc, Symbicort, Decadron, and Rocephin. Discharge planning in progress 09/03/2022 pt is still tachypnic and with cough and phlegm , little amount, no chest pain he is awake and alert and knows he is in the hospital , however he has no insight into his illness, he thought he is in the hospital for his leg pain , i told him about his pna no GI or urinary complaint he has some right leg pain pulmonary team on the case and recommended ct of the chest which is pending now. 09/24/2020, Patient looks severely weak while lying in bed. Minimal tachypnea. Occasional cough. No chest pain and he is saturating 90% on room air. Computed tomography scan showing extensive left side infiltrate with cavitary lesion. Review of possible blood culture for staph hominis. Infectious disease consult is up-to-date and input is appreciated, antibiotics was adjusted to clindamycin and cefepime. He remains on dexamethasone for possible culprit Pulmonary team input is appreciated 09/05/2022 Patient still lethargic but clinically stable, he is improving slowly and gradually Vitals stable, oxygen saturation is acceptable He remains on clindamycin and cefepime and just x-ray from today showing improvement in infiltrate He is also on liquids home dose, multiple vitamins and Plavix. 09/06/2022 Patient is currently lying in the bed. Awake alert and oriented x3. He is let hargic. No complaints of chest pain or worsening shortness of breath. Patient is being continued on antibiotics cefepime and clindamycin for pneumonia. Also on dexamethasone 6 mg daily. Also on duo nebs. Laboratory data showed WBC 19.4, hemoglobin 13.3 and platelets 398 Sodium 132 potassium 5.3 chloride 198 BUN 35.1 and creatinine 1.0 Procalcitonin level is 0.11 09/07/2022 Patient is resting in bed. Awake alert oriented x3. Currently on room air. No complaints of chest pain or shortness of breath. No nausea vomiting abdominal diarrhea. No cough or sputum production. Patient is on antibiotics for left- sided pneumonia. No fever no chills. Currently back on room air. No headache or dizziness lightheadedness. PT OT was consulted and possible discharge to rehab. Laboratory data showed WBC 19.6, hemoglobin 14.7 and platelets 411 Sodium 134 potassium 5.4 chloride 100 bicarb is 25.5 BUN 37.8 and creatinine 1.0 Pulmonary is on board. Current medications reviewed. Objective - Vital Signs Vital signs: Vital Signs Temp 97.4 F L 09/07/22 18:59 Pulse 72 09/07/22 18:59 Resp 16 09/07/22 18:59 BP 114/73 09/07/22 18:59 Pulse Ox 94 L 09/07/22 18:59 FiO2 Intake & Output 09/07/22 09/07/22 09/08/22 06:59 18:59 06:59 Intake Total 200 Output Total 700 Balance -700 200 Intake: Intake, IV Titration 200 Amount Cefepime 2 gm In Sodium 100 Chloride 0.9% 100 ml @ 25 mls/hr IVPB Q12H [facility] Rx# :[id number] Clindamycin 600 mg In 100 Dextrose 5% in Water 50 ml @ 50 mls/hr IVPB Q8HR [facility] Rx#:[id number] Output: Urine 700 Other: Voiding Method Incontinent Incontinent Incontinent External Catheter External Catheter External Catheter # Bowel Movements 1 - Exam - Exam GENERAL: The patient is alert and oriented x3, not in any acute distress. Well developed, well nourished. HEENT: Pupils are round and equally reacting to light. EOMI. No scleral icterus. No conjunctival pallor. Normocephalic, atraumatic. No pharyngeal erythema. No thyromegaly. CARDIOVASCULAR: S1 and S2 present. No murmurs, rubs, or gallops. -PULMONARY: Chest is clear to auscultation, no wheezing or crackles. tachypnea with left side crepitation ABDOMEN: Soft, nontender, nondistended, normoactive bowel sounds. No palpable organomegaly. MUSCULOSKELETAL: No joint swelling or deformity. EXTREMITIES: No cyanosis, clubbing, or pedal edema. NEUROLOGICAL: Gross neurological examination did not reveal any focal deficits. SKIN: No rashes. no petechiae. - Labs CBC & Chem 7: 09/09/22 06:17 09/09/22 06:17 Labs: Abnormal Lab Results - Last 24 Hours (Table) 09/07/22 09/07/22 Range/Units 06:26 06:26 WBC 19.68 H (4.50-10.00) X 10*3/uL RDW 16.2 H (11.5-14.5) % Metamyelocytes % 2 H (0-0) % Myelocytes % 1 H (0-0) % Neutrophils # (Manual) 15.55 H (2.00-8.90) X 10*3/uL Monocytes # (Manual) 1.38 H (0.20-1.00) X 10*3/uL Anion Gap 9.50 L (10.00-18.00) mmol/L BUN 37.8 H (9.0-27.0) mg/dL BUN/Creatinine Ratio 37.80 H (12.00-20.00) Ratio Microbiology - Last 24 Hours (Table) 09/04/22 11:25 Blood Culture - Preliminary Blood No Growth after 72 hours Assessment and Plan Assessment: Acute Left sided pneumonia Acute COVID-19 pneumonia-patient has not been vaccinated. Elevated inflammatory markers Acute hypoxic respiratory failure requiring oxygen at 2 L via nasal cannula. titrtae down to RA Generalized weakness and falls at home. Chronic atrial fibrillation/flutter on anticoagulation with Eliquis. Coronary disease history of stent placement GERD Hearing disorder/deafness Hypertension Hyperlipidemia Osteoarthritis Peripheral vascular disease with bilateral occluded SFA and bilateral popliteal arteries. History of gout Plan: Patient will be continued on oxygen supplementation. Was given antibiotics cefepime and clindamycin and dexamethasone for gram neg bacteria and covid pna. Infectious and pulmonary team on the case Due to hypoxia patient was started on dexamethasone 6 mg daily and continue with duo nebs and Symbicort.Continue with dexamethasone for 10 days. Continue supportive care with multivitamins and GI prophylaxis. dvt px : eliquis gi px: ppi prognosis is guarded Time with Patient: Greater than 30
--- NOTE | 2022-09-10 01:12 | P.PN ---
Subjective Progress Note Date: 09/08/22 81-year-old male with a known history of atrial flutter, coronary artery disease with history of stent placement, hearing disorder/deafness, hypertension, hyperlipidemia, cellulitis, peripheral vascular disease and prior history of smoking presents to ER with complaints of generalized weakness and chills and shortness of breath. Patient was diagnosed with COVID-19 infection at outside hospital. Plan was to discharge [facility] to [facility] but given COVID-19 positive status it was felt frequently discharged home. Patient has been having generalized weakness and falls at home. Patient has decreased oral intake.. Patient does have nausea. No chills or vomiting. No diarrhea. On admission patient was tachycardic and saturating at 96% on 2 L of oxygen via nasal cannula. Chest x-ray showed there is a left upper lobe and left lower lobe pneumonia which is mostly new compared to old exam. No heart failure seen. Laboratory data showed WBC 18.4 hemoglobin 15.8 and platelets 242 Sodium 136 potassium 3.9 chloride 100 bicarb is 24 BUN 19 and creatinine 0.92 and blood sugar is 125 Liver enzymes are not elevated. LDH 336 and CRP 21.8 troponin 0.031 and procalcitonin level is 0.19. Urinalysis is negative for infection COVID-19 PCR detected. 09/01/2022 Patient is seen and evaluated in follow-up on the regular medical floor. He is awake and alert in no acute distress. Maintaining good O2 saturations in the 90s on 2 L/m per nasal cannula. Afebrile. He is continued on Symbicort, albuterol, Decadron and vitamin supplements. Anticoagulated with Eliquis. Remains on antibiotics in the form of ceftriaxone. Follow-up chest x-ray in a.m. Pulmonary on board and recommending to continue with ceftriaxone; patient awaits placement to subacute rehab 09/02/2022 Patient is seen and evaluated and discussed with nursing staff; history of fall with laceration back of head with albert in place; patient does have occipital hematoma; plan is to take the albert out and wound care consult He is currently on 2 L. He's not receiving any IV fluids. The patient does complain about his cough. I had some Tessalon Perles, 200 mg, 3 times a day. He denies any significant shortness of breath. He is not producing any phlegm when he coughs. He denies any fever or chills. He denies any chest pain or chest discomfort. White count 24.3, hemoglobin 13.6, hematocrit 41.9, and platelet count 291,000. Blood cultures are positive for staph hominis. Chest x-ray is showing some patchy infiltrates in the left lung, which could be pneumonia and/or atelectasis. He continues on an albuterol inhaler, vitamin C, vitamin D3, and zinc, Symbicort, Decadron, and Rocephin. Discharge planning in progress 09/03/2022 pt is still tachypnic and with cough and phlegm , little amount, no chest pain he is awake and alert and knows he is in the hospital , however he has no insight into his illness, he thought he is in the hospital for his leg pain , i told him about his pna no GI or urinary complaint he has some right leg pain pulmonary team on the case and recommended ct of the chest which is pending now. 09/24/2020, Patient looks severely weak while lying in bed. Minimal tachypnea. Occasional cough. No chest pain and he is saturating 90% on room air. Computed tomography scan showing extensive left side infiltrate with cavitary lesion. Review of possible blood culture for staph hominis. Infectious disease consult is up-to-date and input is appreciated, antibiotics was adjusted to clindamycin and cefepime. He remains on dexamethasone for possible culprit Pulmonary team input is appreciated 09/05/2022 Patient still lethargic but clinically stable, he is improving slowly and gradually Vitals stable, oxygen saturation is acceptable He remains on clindamycin and cefepime and just x-ray from today showing improvement in infiltrate He is also on liquids home dose, multiple vitamins and Plavix. 09/06/2022 Patient is currently lying in the bed. Awake alert and oriented x3. He is let hargic. No complaints of chest pain or worsening shortness of breath. Patient is being continued on antibiotics cefepime and clindamycin for pneumonia. Also on dexamethasone 6 mg daily. Also on duo nebs. Laboratory data showed WBC 19.4, hemoglobin 13.3 and platelets 398 Sodium 132 potassium 5.3 chloride 198 BUN 35.1 and creatinine 1.0 Procalcitonin level is 0.11 09/07/2022 Patient is resting in bed. Awake alert oriented x3. Currently on room air. No complaints of chest pain or shortness of breath. No nausea vomiting abdominal diarrhea. No cough or sputum production. Patient is on antibiotics for left- sided pneumonia. No fever no chills. Currently back on room air. No headache or dizziness lightheadedness. PT OT was consulted and possible discharge to rehab. Laboratory data showed WBC 19.6, hemoglobin 14.7 and platelets 411 Sodium 134 potassium 5.4 chloride 100 bicarb is 25.5 BUN 37.8 and creatinine 1.0 Pulmonary is on board. 09/08/2022 Patient is currently resting in the bed. Awake alert and oriented x3. No cough or sputum production. No wheezing noted on exam. Breathing status is much better. Currently on room air. Currently on dexamethasone and antibiotics in the form of cefepime and clindamycin. Laboratory data reviewed. Chest x-ray for tomorrow was ordered. Pulmonary is on board. Patient had an episode of coughing spell while eating with possible aspiration. Currently denies any symptoms otherwise. Current medications reviewed. Objective - Vital Signs Vital signs: Vital Signs Temp 98.4 F 09/08/22 19:40 Pulse 71 09/08/22 19:40 Resp 16 09/08/22 19:40 BP 140/84 09/08/22 19:40 Pulse Ox 91 L 09/08/22 19:40 FiO2 Intake & Output 09/08/22 09/08/22 09/09/22 06:59 18:59 05:59 Intake Total 600 Balance 600 Intake: Oral 600 Other: Voiding Method Incontinent Diaper Diaper External Catheter Incontinent Incontinent External Catheter # Voids 1 - Exam - Exam GENERAL: The patient is alert and oriented x3, not in any acute distress. Well developed, well nourished. HEENT: Pupils are round and equally reacting to light. EOMI. No scleral icterus. No conjunctival pallor. Normocephalic, atraumatic. No pharyngeal erythema. No thyromegaly. CARDIOVASCULAR: S1 and S2 present. No murmurs, rubs, or gallops. -PULMONARY: Chest is clear to auscultation, no wheezing or crackles. tachypnea with left side crepitation ABDOMEN: Soft, nontender, nondistended, normoactive bowel sounds. No palpable organomegaly. MUSCULOSKELETAL: No joint swelling or deformity. EXTREMITIES: No cyanosis, clubbing, or pedal edema. NEUROLOGICAL: Gross neurological examination did not reveal any focal deficits. SKIN: No rashes. no petechiae. - Labs CBC & Chem 7: 09/09/22 06:17 09/09/22 06:17 Labs: Microbiology - Last 24 Hours (Table) 09/04/22 11:25 Blood Culture - Preliminary Blood No Growth after 96 hours Assessment and Plan Assessment: Acute Left sided pneumonia Acute COVID-19 pneumonia-patient has not been vaccinated. Elevated inflammatory markers Acute hypoxic respiratory failure requiring oxygen at 2 L via nasal cannula. titrtae down to RA Generalized weakness and falls at home. Chronic atrial fibrillation/flutter on anticoagulation with Eliquis. Coronary disease history of stent placement GERD Hearing disorder/deafness Hypertension Hyperlipidemia Osteoarthritis Peripheral vascular disease with bilateral occluded SFA and bilateral popliteal arteries. History of gout Plan: Patient will be continued on oxygen supplementation. Was given antibiotics cefepime and clindamycin and dexamethasone for gram neg bacteria and covid pna. Infectious and pulmonary team on the case Due to hypoxia patient was started on dexamethasone 6 mg daily and continue with duo nebs and Symbicort.Continue with dexamethasone for 10 days. Continue supportive care with multivitamins and GI prophylaxis. dvt px : eliquis gi px: ppi prognosis is guarded Time with Patient: Greater than 30
--- NOTE | 2022-09-10 01:15 | P.PN ---
Subjective Progress Note Date: 09/09/22 81-year-old male with a known history of atrial flutter, coronary artery disease with history of stent placement, hearing disorder/deafness, hypertension, hyperlipidemia, cellulitis, peripheral vascular disease and prior history of smoking presents to ER with complaints of generalized weakness and chills and shortness of breath. Patient was diagnosed with COVID-19 infection at outside hospital. Plan was to discharge him to [facility] but given COVID-19 positive status it was felt frequently discharged home. Patient has been having generalized weakness and falls at home. Patient has decreased oral intake.. Patient does have nausea. No chills or vomiting. No diarrhea. On admission patient was tachycardic and saturating at 96% on 2 L of oxygen via nasal cannula. Chest x-ray showed there is a left upper lobe and left lower lobe pneumonia which is mostly new compared to old exam. No heart failure seen. Laboratory data showed WBC 18.4 hemoglobin 15.8 and platelets 242 Sodium 136 potassium 3.9 chloride 100 bicarb is 24 BUN 19 and creatinine 0.92 and blood sugar is 125 Liver enzymes are not elevated. LDH 336 and CRP 21.8 troponin 0.031 and procalcitonin level is 0.19. Urinalysis is negative for infection COVID-19 PCR detected. 09/01/2022 Patient is seen and evaluated in follow-up on the regular medical floor. He is awake and alert in no acute distress. Maintaining good O2 saturations in the 90s on 2 L/m per nasal cannula. Afebrile. He is continued on Symbicort, albuterol, Decadron and vitamin supplements. Anticoagulated with Eliquis. Remains on antibiotics in the form of ceftriaxone. Follow-up chest x-ray in a.m. Pulmonary on board and recommending to continue with ceftriaxone; patient awaits placement to subacute rehab 09/02/2022 Patient is seen and evaluated and discussed with nursing staff; history of fall with laceration back of head with albert in place; patient does have occipital hematoma; plan is to take the albert out and wound care consult He is currently on 2 L. He's not receiving any IV fluids. The patient does complain about his cough. I had some Tessalon Perles, 200 mg, 3 times a day. He denies any significant shortness of breath. He is not producing any phlegm when he coughs. He denies any fever or chills. He denies any chest pain or chest discomfort. White count 24.3, hemoglobin 13.6, hematocrit 41.9, and platelet count 291,000. Blood cultures are positive for staph hominis. Chest x-ray is showing some patchy infiltrates in the left lung, which could be pneumonia and/or atelectasis. He continues on an albuterol inhaler, vitamin C, vitamin D3, and zinc, Symbicort, Decadron, and Rocephin. Discharge planning in progress 09/03/2022 pt is still tachypnic and with cough and phlegm , little amount, no chest pain he is awake and alert and knows he is in the hospital , however he has no insight into his illness, he thought he is in the hospital for his leg pain , i told him about his pna no GI or urinary complaint he has some right leg pain pulmonary team on the case and recommended ct of the chest which is pending now. 09/24/2020, Patient looks severely weak while lying in bed. Minimal tachypnea. Occasional cough. No chest pain and he is saturating 90% on room air. Computed tomography scan showing extensive left side infiltrate with cavitary lesion. Review of possible blood culture for staph hominis. Infectious disease consult is up-to-date and input is appreciated, antibiotics was adjusted to clindamycin and cefepime. He remains on dexamethasone for possible culprit Pulmonary team input is appreciated 09/05/2022 Patient still lethargic but clinically stable, he is improving slowly and gradually Vitals stable, oxygen saturation is acceptable He remains on clindamycin and cefepime and just x-ray from today showing improvement in infiltrate He is also on liquids home dose, multiple vitamins and Plavix. 09/06/2022 Patient is currently lying in the bed. Awake alert and oriented x3. He is let hargic. No complaints of chest pain or worsening shortness of breath. Patient is being continued on antibiotics cefepime and clindamycin for pneumonia. Also on dexamethasone 6 mg daily. Also on duo nebs. Laboratory data showed WBC 19.4, hemoglobin 13.3 and platelets 398 Sodium 132 potassium 5.3 chloride 198 BUN 35.1 and creatinine 1.0 Procalcitonin level is 0.11 09/07/2022 Patient is resting in bed. Awake alert oriented x3. Currently on room air. No complaints of chest pain or shortness of breath. No nausea vomiting abdominal diarrhea. No cough or sputum production. Patient is on antibiotics for left- sided pneumonia. No fever no chills. Currently back on room air. No headache or dizziness lightheadedness. PT OT was consulted and possible discharge to rehab. Laboratory data showed WBC 19.6, hemoglobin 14.7 and platelets 411 Sodium 134 potassium 5.4 chloride 100 bicarb is 25.5 BUN 37.8 and creatinine 1.0 Pulmonary is on board. 09/08/2022 Patient is currently resting in the bed. Awake alert and oriented x3. No cough or sputum production. No wheezing noted on exam. Breathing status is much better. Currently on room air. Currently on dexamethasone and antibiotics in the form of cefepime and clindamycin. Laboratory data reviewed. Chest x-ray for tomorrow was ordered. Pulmonary is on board. Patient had an episode of coughing spell while eating with possible aspiration. Currently denies any symptoms otherwise. 09/09/2022 Patient is resting in the bed. Awake alert and oriented x3. No complaints of chest pain or shortness of breath. No nausea vomiting abdominal pain or diarrhea. Tolerating oral diet. No cough or sputum production. Patient completed 10 days of dexamethasone course and will be discontinued. Patient is being current cefepime and clindamycin. ID is on board.. Afebrile. No headache or dizziness or lightheadedness. PT OT consult and possible discharge to rehab. Patient still having significant leukocytosis. Chest x-ray today showed worsening multifocal airspace opacities. Current medications reviewed. Objective - Vital Signs Vital signs: Vital Signs Temp 97.8 F 09/09/22 14:00 Pulse 84 09/09/22 14:00 Resp 16 09/09/22 14:00 BP 115/59 09/09/22 14:00 Pulse Ox 95 09/09/22 15:40 FiO2 Intake & Output 09/08/22 09/09/22 09/09/22 19:59 06:59 18:59 Intake Total Output Total Balance Intake: Oral Output: Urine Other: Voiding Method # Voids - Exam - Exam GENERAL: The patient is alert and oriented x3, not in any acute distress. Well developed, well nourished. HEENT: Pupils are round and equally reacting to light. EOMI. No scleral icterus. No conjunctival pallor. Normocephalic, atraumatic. No pharyngeal erythema. No thyromegaly. CARDIOVASCULAR: S1 and S2 present. No murmurs, rubs, or gallops. -PULMONARY: Chest is clear to auscultation, no wheezing or crackles. tachypnea with left side crepitation ABDOMEN: Soft, nontender, nondistended, normoactive bowel sounds. No palpable organomegaly. MUSCULOSKELETAL: No joint swelling or deformity. EXTREMITIES: No cyanosis, clubbing, or pedal edema. NEUROLOGICAL: Gross neurological examination did not reveal any focal deficits. SKIN: No rashes. no petechiae. - Labs CBC & Chem 7: 09/09/22 06:17 09/09/22 06:17 Labs: Abnormal Lab Results - Last 24 Hours (Table) 09/09/22 09/09/22 09/09/22 Range/Units 06:17 06:17 06:17 WBC 20.70 H (4.50-10.00) X 10*3/uL MCHC 31.2 L (32.0-37.0) g/dL RDW 16.5 H (11.5-14.5) % Metamyelocytes % 2 H (0-0) % Myelocytes % 2 H (0-0) % Neutrophils # (Manual) 16.15 H (2.00-8.90) X 10*3/uL Monocytes # (Manual) 1.86 H (0.20-1.00) X 10*3/uL Eosinophils # (Manual) 0 L (0.04-0.35) X 10*3/uL Sodium 133 L (135-145) mmol/L Potassium 5.7 H (3.5-5.5) mmol/L Anion Gap 9.80 L (10.00-18.00) mmol/L BUN 31.4 H (9.0-27.0) mg/dL BUN/Creatinine Ratio 35.20 H (12.00-20.00) Ratio Procalcitonin 0.12 H (0.02-0.09) ng/mL Microbiology - Last 24 Hours (Table) 09/04/22 11:25 Blood Culture - Preliminary Blood No Growth after 120 hours Assessment and Plan Assessment: Acute Left sided pneumonia Acute COVID-19 pneumonia-patient has not been vaccinated. Elevated inflammatory markers Acute hypoxic respiratory failure requiring oxygen at 2 L via nasal cannula. titrtae down to RA Generalized weakness and falls at home. Chronic atrial fibrillation/flutter on anticoagulation with Eliquis. Coronary disease history of stent placement GERD Hearing disorder/deafness Hypertension Hyperlipidemia Osteoarthritis Peripheral vascular disease with bilateral occluded SFA and bilateral popliteal arteries. History of gout Plan: Patient will be continued on oxygen supplementation. Was given antibiotics cefepime and clindamycin and dexamethasone for gram neg bacteria and covid pna. Infectious and pulmonary team on the case Due to hypoxia patient was started on dexamethasone 6 mg daily and continue with duo nebs and Symbicort.Continue with dexamethasone for 10 days. DCed dexamethasone. Continue supportive care with multivitamins and GI prophylaxis. dvt px : eliquis gi px: ppi prognosis is guarded Time with Patient: Greater than 30
[2022-09-10] MEDS: PANTOPRAZOLE 40 MG TABLET PO SCH (06:09)
[2022-09-10] MEDS: HYDROcodone/APAP 5-325MG 1 EACH TAB PO PRN ×2 (06:09→12:11)
[2022-09-10] MEDS: SYMBICORT 160-4.5 MCG INHALER INHALATION SCH ×2 (07:44→20:03)
[2022-09-10] MEDS: ALBUTEROL HFA INHALER INHALATION SCH ×4 (07:44→20:03)
[2022-09-10 08:42] LABS: HCT 43.5 % (39.6-50.0); HGB 13.9 g/dL (13.0-17.0); MCH 29.8 pg (27.0-32.0); MCV 93.3 fL (80.0-97.0); Mean Platelet Volume 9.7 fL (9.5-12.2); NRBC Per 100 WBC 0 /100 WBCS (0.0-0.0); Platelet Count 376 X 10*3/uL (140-440); RBC 4.66 X 10*6/uL (4.40-5.60); RDW 16.7 % (11.5-14.5); WBC 24.01 X 10*3/uL (4.50-10.00)
[2022-09-10 09:04] LABS: African American GFR (CKD) 80.9 (60.0-200.0); Anion Gap 7.5 mmol/L (10.00-18.00); BUN/Creat Ratio 38.9 Ratio (12.00-20.00); Blood Urea Nitrogen 38.9 mg/dL (9.0-27.0); Calcium 9.2 mg/dL (8.7-10.3); Carbon Dioxide 25.5 mmol/L (20.0-27.5); Non-African American GFR(CKD) 69.8 (60.0-200.0); Potassium 4.8 mmol/L (3.5-5.5)
[2022-09-10] MEDS: BENZONATATE 100 MG CAP PO SCH ×3 (09:28→21:01)
[2022-09-10] MEDS: ZINC SULFATE 220 MG CAP PO SCH (09:28)
[2022-09-10] MEDS: CLINDAMYCIN 600 MG in DEXTROSE 5% IN WATER 50 ML IVPB SCH ×6 (09:28→23:09)
[2022-09-10] MEDS: CHOLECALCIFEROL 25 MCG (1000 IU) TABLET PO SCH (09:28)
[2022-09-10] MEDS: APIXABAN 2.5 MG TABLET PO SCH ×2 (09:28→21:01)
[2022-09-10] MEDS: ATORVASTATIN 20 MG TAB PO SCH (09:28)
[2022-09-10] MEDS: CLOPIDOGREL 75 MG TAB PO SCH (09:28)
[2022-09-10] MEDS: ASCORBIC ACID 500 MG TAB PO SCH (09:28)
[2022-09-10] MEDS: DIGOXIN 125 MCG TAB PO SCH (09:29)
[2022-09-10 09:51] LABS: Basophils # (M) 0 X 10*3/uL (0.00-0.10); Eosinophils # (M) 0 X 10*3/uL (0.04-0.35); Metamyelocytes % 2 % (0-0); Myelocytes % 2 % (0-0); Neutrophils # (M) 19.45 X 10*3/uL (2.00-8.90); Neutrophils % (M) 81 %; RBC Morphology NORMAL
--- NOTE | 2022-09-10 13:30 | P.PN ---
Subjective Progress Note Date: 09/10/22 81-year-old male, who presents to the emergency department, on August 28, complaining of generalized weakness, chills, and fatigue. The patient was tested for coronavirus, by nasal swab, and was positive. [facility], but given the positive nasal swab for coronaviru s, the patient was admitted to the hospital. We were consulted because of the patient's shortness of breath, and cough. Currently, he's on 2 L of oxygen. He's not receiving any IV fluids. He is not manifesting any overt signs of respiratory distress. He has a history of atrial flutter, CAD, heart failure, COPD, GERD, hyperlipidemia, hypertension, and osteoarthritis, among other things. White count 23, hemoglobin 14.4, hematocrit 44.5, platelet count 254,000. Sodium 138, potassium 4.7, chlorides 101, CO2 26, anion gap 11, BUN 24, creatinine 1.1. The patient's chest x-ray shows evidence of left-sided pneumonia. The patient's pro-calcitonin level is 0.19. The patient is seen today 08/31/2022 in follow-up on the regular medical floor. He is currently sitting up at the bedside. Awake and alert in no acute distress. He is maintaining O2 saturations in the 90s on room air. No IV f luids. White count 20.8. Hemoglobin 14.1. Sodium 134. Potassium 4.2. BUN 26. Creatinine 0.88. Glucose 143. He is continued on vitamin supplements, anticoagulated with Eliquis, remains on Decadron. Blood culture with coag- negative staph. Currently on ceftriaxone. The patient is seen today 09/01/2022 in follow-up on the regular medical floor. He is awake and alert in no acute distress. Maintaining good O2 saturations in the 90s on 2 L/m per nasal cannula. Afebrile. He is continued on Symbicort, albuterol, Decadron and vitamin supplements. Anticoagulated with Eliquis. Remains on antibiotics in the form of ceftriaxone. Follow-up chest x-ray in a.m. The patient is seen today 09/10/2022 in follow-up on the regular medical floor. He is currently resting comfortably in bed. Awake and alert in no acute distress. He is maintaining O2 saturations in the 90s on room air. Follow up blood cultures reveal no growth. Follow-up chest x-ray continues to show multifocal airspace disease more so on the left. He is continued on cefepime and clindamycin. Continue on Symbicort, albuterol. Anticoagulated with Eliquis. Remains on vitamin supplements. Objective - Vital Signs Vital signs: Vital Signs Temp 98.2 F 09/10/22 08:00 Pulse 51 L 09/10/22 08:00 Resp 16 09/10/22 09:25 BP 138/66 09/10/22 08:00 Pulse Ox 93 L 09/10/22 08:00 FiO2 Intake & Output 09/09/22 09/10/22 09/10/22 18:59 06:59 18:59 Intake Total 150 Output Total 1300 Balance 150 -1300 Intake: Intake, IV Titration 150 Amount Cefepime 2 gm In Sodium 100 Chloride 0.9% 100 ml @ 25 mls/hr IVPB Q12H [facility] Rx# :[id number] Clindamycin 600 mg In 50 Dextrose 5% in Water 50 ml @ 50 mls/hr IVPB Q8HR [facility] Rx#:[id number] Output: Urine 1300 Other: Voiding Method Diaper Diaper External Catheter External Catheter # Voids 4 # Bowel Movements 1 - Exam GENERAL EXAM: Alert, pleasant 81-year-old male patient, on room air, comfortable in no apparent distress. HEAD: Normocephalic. EYES: Normal reaction of pupils, equal size. NOSE: Clear with pink turbinates. THROAT: No erythema or exudates. NECK: No masses, no JVD. CHEST: No chest wall deformity. LUNGS: Equal air entry with bilateral scattered rhonchi. CVS: S1 and S2 normal with no audible murmur, regular rhythm. ABDOMEN: No hepatosplenomegaly, normal bowel sounds, no guarding or rigidity. SPINE: No scoliosis or deformity SKIN: No rashes CENTRAL NERVOUS SYSTEM: No focal deficits, tone is normal in all 4 extremities. EXTREMITIES: There is no peripheral edema. No clubbing, no cyanosis. Peripheral pulses are intact. - Labs CBC & Chem 7: 09/10/22 04:25 09/10/22 04:25 Labs: Abnormal Lab Results - Last 24 Hours (Table) 09/10/22 09/10/22 Range/Units 04:25 04:25 WBC 24.01 H (4.50-10.00) X 10*3/uL RDW 16.7 H (11.5-14.5) % Metamyelocytes % 2 H (0-0) % Myelocytes % 2 H (0-0) % Neutrophils # (Manual) 19.45 H (2.00-8.90) X 10*3/uL Monocytes # (Manual) 1.20 H (0.20-1.00) X 10*3/uL Eosinophils # (Manual) 0 L (0.04-0.35) X 10*3/uL Sodium 132 L (135-145) mmol/L Anion Gap 7.50 L (10.00-18.00) mmol/L BUN 38.9 H (9.0-27.0) mg/dL BUN/Creatinine Ratio 38.90 H (12.00-20.00) Ratio Microbiology - Last 24 Hours (Table) 09/04/22 11:25 Blood Culture - Preliminary Blood No Growth after 120 hours Assessment and Plan Assessment: Acute hypoxemic respiratory failure secondary to left-sided pneumonia. History of coronavirus infection, and possible coronavirus associated pneumonia. History of coronary artery disease, with previous stenting. History of atrial flutter. Anticoagulated with Eliquis History of CHF. History of COPD, from previous tobacco use. History of hyperlipidemia. History of hypertension. History of deafness. History of GERD. History of gout. Multiple other medical problems and comorbidities. Plan: The patient was seen and evaluated Medications and labs reviewed Stable from the pulmonary standpoint Antibiotics per ID service May need subacute rehabilitation, possibly [facility] I have personally seen and examined the patient, performed the documentation and the assessment and plan as written. Number of minutes spent on the visit: 10.
[2022-09-11] MEDS: CEFEPIME 2 GM in SODIUM CHLORIDE 0.9% 100 ML IVPB SCH ×2 (00:21→13:39)
[2022-09-11] MEDS: HYDROcodone/APAP 5-325MG 1 EACH TAB PO PRN ×2 (03:30→14:24)
[2022-09-11] MEDS: PANTOPRAZOLE 40 MG TABLET PO SCH (06:42)
[2022-09-11] MEDS: ALBUTEROL HFA INHALER INHALATION SCH ×4 (07:20→20:50)
[2022-09-11] MEDS: SYMBICORT 160-4.5 MCG INHALER INHALATION SCH ×2 (07:20→20:50)
[2022-09-11] MEDS: ZINC SULFATE 220 MG CAP PO SCH (09:21)
[2022-09-11] MEDS: CLINDAMYCIN 600 MG in DEXTROSE 5% IN WATER 50 ML IVPB SCH ×6 (09:21→23:26)
[2022-09-11] MEDS: APIXABAN 2.5 MG TABLET PO SCH ×2 (09:21→21:26)
[2022-09-11] MEDS: CHOLECALCIFEROL 25 MCG (1000 IU) TABLET PO SCH (09:21)
[2022-09-11] MEDS: CLOPIDOGREL 75 MG TAB PO SCH (09:22)
[2022-09-11] MEDS: ASCORBIC ACID 500 MG TAB PO SCH (09:22)
[2022-09-11] MEDS: ATORVASTATIN 20 MG TAB PO SCH (09:22)
[2022-09-11] MEDS: DIGOXIN 125 MCG TAB PO SCH (09:22)
[2022-09-11] MEDS: BENZONATATE 100 MG CAP PO SCH ×3 (09:22→21:26)
[2022-09-11 10:54] LABS: HCT 45.5 % (39.6-50.0); HGB 14.1 g/dL (13.0-17.0); MCH 29.9 pg (27.0-32.0); MCV 96.4 fL (80.0-97.0); Mean Platelet Volume 9.9 fL (9.5-12.2); NRBC Per 100 WBC 0 /100 WBCS (0.0-0.0); Platelet Count 311 X 10*3/uL (140-440); RBC 4.72 X 10*6/uL (4.40-5.60); RDW 16.9 % (11.5-14.5); WBC 18.36 X 10*3/uL (4.50-10.00)
[2022-09-11] MEDS: SODIUM CHLORIDE 0.9% 500 ML 500 ML IV SCH (10:55)
[2022-09-11 11:14] LABS: African American GFR (CKD) 80.9 (60.0-200.0); Anion Gap 7.6 mmol/L (10.00-18.00); BUN/Creat Ratio 30.3 Ratio (12.00-20.00); Blood Urea Nitrogen 30.3 mg/dL (9.0-27.0); Carbon Dioxide 26.4 mmol/L (20.0-27.5); Non-African American GFR(CKD) 69.8 (60.0-200.0); Potassium 5.1 mmol/L (3.5-5.5)
[2022-09-11 12:48] LABS: Basophils # (M) 0.18 X 10*3/uL (0.00-0.10); Eosinophils # (M) 0.18 X 10*3/uL (0.04-0.35); Lymphocytes # (M) 1.29 X 10*3/uL (0.90-5.00); Metamyelocytes % 3 % (0-0); Monocytes # (M) 2.02 X 10*3/uL (0.20-1.00); Myelocytes % 3 % (0-0); Neutrophils # (M) 13.59 X 10*3/uL (2.00-8.90); Neutrophils % (M) 74 %
--- NOTE | 2022-09-11 14:26 | P.PN ---
Subjective Progress Note Date: 09/11/22 81-year-old male, who presents to the emergency department, on August 28, complaining of generalized weakness, chills, and fatigue. The patient was tested for coronavirus, by nasal swab, and was positive. Patient was to be discharged to the halfway, but given the positive nasal swab for coronaviru s, the patient was admitted to the hospital. We were consulted because of the patient's shortness of breath, and cough. Currently, he's on 2 L of oxygen. He's not receiving any IV fluids. He is not manifesting any overt signs of respiratory distress. He has a history of atrial flutter, CAD, heart failure, COPD, GERD, hyperlipidemia, hypertension, and osteoarthritis, among other things. White count 23, hemoglobin 14.4, hematocrit 44.5, platelet count 254,000. Sodium 138, potassium 4.7, chlorides 101, CO2 26, anion gap 11, BUN 24, creatinine 1.1. The patient's chest x-ray shows evidence of left-sided pneumonia. The patient's pro-calcitonin level is 0.19. The patient is seen today 08/31/2022 in follow-up on the regular medical floor. He is currently sitting up at the bedside. Awake and alert in no acute distress. He is maintaining O2 saturations in the 90s on room air. No IV f luids. White count 20.8. Hemoglobin 14.1. Sodium 134. Potassium 4.2. BUN 26. Creatinine 0.88. Glucose 143. He is continued on vitamin supplements, anticoagulated with Eliquis, remains on Decadron. Blood culture with coag- negative staph. Currently on ceftriaxone. The patient is seen today 09/01/2022 in follow-up on the regular medical floor. He is awake and alert in no acute distress. Maintaining good O2 saturations in the 90s on 2 L/m per nasal cannula. Afebrile. He is continued on Symbicort, albuterol, Decadron and vitamin supplements. Anticoagulated with Eliquis. Remains on antibiotics in the form of ceftriaxone. Follow-up chest x-ray in a.m. The patient is seen today 09/10/2022 in follow-up on the regular medical floor. He is currently resting comfortably in bed. Awake and alert in no acute distress. He is maintaining O2 saturations in the 90s on room air. Follow up blood cultures reveal no growth. Follow-up chest x-ray continues to show multifocal airspace disease more so on the left. He is continued on cefepime and clindamycin. Continue on Symbicort, albuterol. Anticoagulated with Eliquis. Remains on vitamin supplements. Patient is seen today 09/11/2022 in follow-up on the regular medical floor. He is currently sitting up in a chair at bedside. Awake and alert in no acute distress. He is maintaining good O2 saturations in the 90s on room air. He's afebrile. Hemodynamically stable. Follow-up blood cultures revealed no growth. White count 18.3. Hematoma 14.1. Sodium 134. Potassium 5.1. BUN 30. Creatinine 1.0. Coronavirus by PCR still detected. He is continued on Ventolin, Symbicort. Antibiotics in the form of cefepime and clindamycin. Continued on vitamin supplements. Completed Decadron. Objective - Vital Signs Vital signs: Vital Signs Temp 98.0 F 09/11/22 08:00 Pulse 52 L 09/11/22 08:00 Resp 16 09/11/22 09:00 BP 129/79 09/11/22 08:00 Pulse Ox 94 L 09/11/22 08:00 FiO2 Intake & Output 09/10/22 09/11/22 09/11/22 18:59 06:59 18:59 Intake Total 480 Output Total 350 Balance 130 Intake: Oral 480 Output: Urine 350 Other: Voiding Method Diaper Diaper Diaper External Catheter External Catheter External Catheter # Voids 1 # Bowel Movements 1 - Exam GENERAL EXAM: Alert, pleasant 81-year-old male patient, on room air, up in a chair at the bedside, comfortable in no apparent distress. HEAD: Normocephalic. EYES: Normal reaction of pupils, equal size. NOSE: Clear with pink turbinates. THROAT: No erythema or exudates. NECK: No masses, no JVD. CHEST: No chest wall deformity. LUNGS: Equal air entry with bilateral scattered rhonchi. CVS: S1 and S2 normal with no audible murmur, regular rhythm. ABDOMEN: No hepatosplenomegaly, normal bowel sounds, no guarding or rigidity. SPINE: No scoliosis or deformity SKIN: No rashes CENTRAL NERVOUS SYSTEM: No focal deficits, tone is normal in all 4 extremities. EXTREMITIES: There is no peripheral edema. No clubbing, no cyanosis. Peripheral pulses are intact. - Labs CBC & Chem 7: 09/11/22 07:13 09/11/22 07:13 Labs: Abnormal Lab Results - Last 24 Hours (Table) 09/11/22 09/11/22 09/11/22 Range/Units 07:13 07:13 10:56 WBC 18.36 H (4.50-10.00) X 10*3/uL MCHC 31.0 L (32.0-37.0) g/dL RDW 16.9 H (11.5-14.5) % Metamyelocytes % 3 H (0-0) % Myelocytes % 3 H (0-0) % Neutrophils # (Manual) 13.59 H (2.00-8.90) X 10*3/uL Monocytes # (Manual) 2.02 H (0.20-1.00) X 10*3/uL Basophils # (Manual) 0.18 H (0.00-0.10) X 10*3/uL Sodium 134 L (135-145) mmol/L Anion Gap 7.60 L (10.00-18.00) mmol/L BUN 30.3 H (9.0-27.0) mg/dL BUN/Creatinine Ratio 30.30 H (12.00-20.00) Ratio Glucose 66 L (70-110) mg/dL Coronavirus (PCR) Detected A (Not Detectd) Microbiology - Last 24 Hours (Table) 09/04/22 11:25 Blood Culture - Final Blood No Growth after 144 hours Assessment and Plan Assessment: Acute hypoxemic respiratory failure secondary to left-sided pneumonia. Improved and on room air. History of coronavirus infection, and possible coronavirus associated pneumonia. Still positive by PCR on 09/11/2022. History of coronary artery disease, with previous stenting. History of atrial flutter. Anticoagulated with Eliquis History of CHF. History of COPD, from previous tobacco use. History of hyperlipidemia. History of hypertension. History of deafness. History of GERD. History of gout. Multiple other medical problems and comorbidities. Plan: The patient was seen and evaluated Medications and labs reviewed No plans for bronchoscopy at this time. Still CoVID positive Antibiotics per ID service May need subacute rehabilitation, possibly [facility] Recommend close follow-up in our office in one to two-weeks If no change in chest x-ray consider malignancy, would do outpatient workup at that time I have personally seen and examined the patient, performed the documentation and the assessment and plan as written. Number of minutes spent on the visit: 10.
--- NOTE | 2022-09-11 23:26 | P.PN ---
Subjective Progress Note Date: 09/07/22 Principal diagnosis: Pneumonia and positive blood culture Patient is a 81-year-old male presenting to the hospital initially on 08/28/2021 weakness and chills patient did have a diagnoses of covid 19 infection did have a positive blood culture which staphylococcus hominis likely skin contamination, the patient did have a CT of the chest did shows left upper lobe consultation with some cavitation. On today's evaluation that is 09/07/2022, the patient continues to be afebrile, the patient is breathing comfortably on room air, the patient denies having any chest pain, the patient continued to have a cough but not bringing up any sputum , the patient denies nausea no vomiting no abdominal pain no diarrhea Objective - Vital Signs Vital signs: Vital Signs Temp 97.7 F 09/07/22 14:00 Pulse 69 09/07/22 14:00 Resp 18 09/07/22 08:02 BP 132/76 09/07/22 14:00 Pulse Ox 93 L 09/07/22 14:00 FiO2 Intake & Output 09/06/22 09/07/22 09/07/22 18:59 06:59 18:59 Intake Total 100 Output Total 700 Balance 100 -700 Intake: Intake, IV Titration 100 Amount Cefepime 2 gm In Sodium 100 Chloride 0.9% 100 ml @ 25 mls/hr IVPB Q12H [facility] Rx# :[id number] Output: Urine 700 Other: Voiding Method Incontinent Incontinent Incontinent External Catheter External Catheter External Catheter # Bowel Movements 1 - Exam GENERAL DESCRIPTION: An elderly male lying in bed in no distress RESPIRATORY SYSTEM: Unlabored breathing , decreased breath sounds at bases HEART: S1 S2 regular rate and rhythm , ABDOMEN: Soft , no tenderness EXTREMITIES: No edema feet - Labs CBC & Chem 7: 09/07/22 06:26 09/07/22 06:26 Labs: Abnormal Lab Results - Last 24 Hours (Table) 09/07/22 09/07/22 Range/Units 06:26 06:26 WBC 19.68 H (4.50-10.00) X 10*3/uL RDW 16.2 H (11.5-14.5) % Metamyelocytes % 2 H (0-0) % Myelocytes % 1 H (0-0) % Neutrophils # (Manual) 15.55 H (2.00-8.90) X 10*3/uL Monocytes # (Manual) 1.38 H (0.20-1.00) X 10*3/uL Anion Gap 9.50 L (10.00-18.00) mmol/L BUN 37.8 H (9.0-27.0) mg/dL BUN/Creatinine Ratio 37.80 H (12.00-20.00) Ratio Microbiology - Last 24 Hours (Table) 09/04/22 11:25 Blood Culture - Preliminary Blood No Growth after 72 hours Assessment and Plan (1) Pneumonia Current Visit: Yes Status: Acute Code(s): J18.9 - PNEUMONIA, UNSPECIFIED ORGANISM SNOMED Code(s): 424744908 Plan: 1patient presented to the hospital with weakness and a fall in this patient now with the CT of the chest did shows cavitary infiltrate in the left lower lobe and large area of consolidation in the left upper lobe with concern for possible aspiration pneumonia or developing abscess. 2sputum for gram stain culture has been requested however has not collected. 3patient benefit from bronchoscopy lavage and possible biopsy to rule out malignancy pulmonary is following the patient closely. 4patient to continue with cefepime and clindamycin and monitor clinical course closely Time with Patient: Less than 30
--- NOTE | 2022-09-11 23:26 | P.PN ---
Subjective Progress Note Date: 09/05/22 Principal diagnosis: Pneumonia and positive blood culture Patient is a 81-year-old male presenting to the hospital initially on 08/28/2021 weakness and chills patient did have a diagnoses of covid 19 infection did have a positive blood culture which staphylococcus hominis likely skin contamination, the patient did have a CT of the chest did shows left upper lobe consultation with some cavitation. On today's evaluation that is 09/05/2022, the patient is afebrile, the patient is currently breathing comfortably on room air, the patient denies having any chest pain he did have a cough B diabetes. No nausea no abdominal pain or diarrhea Objective - Vital Signs Vital signs: Vital Signs Temp 98.2 F 09/05/22 08:00 Pulse 61 09/05/22 08:00 Resp 15 09/05/22 08:00 BP 162/91 09/05/22 08:00 Pulse Ox 93 L 09/05/22 08:24 FiO2 Intake & Output 09/04/22 09/05/22 09/05/22 18:59 06:59 18:59 Output Total 800 1000 Balance -800 -1000 Weight 73.482 kg Output: Urine 800 1000 Other: Voiding Method Incontinent Incontinent Incontinent External Catheter External Catheter External Catheter - Exam GENERAL DESCRIPTION: An elderly male lying in bed in no distress RESPIRATORY SYSTEM: Unlabored breathing , decreased breath sounds at bases HEART: S1 S2 regular rate and rhythm , ABDOMEN: Soft , no tenderness EXTREMITIES: No edema feet - Labs CBC & Chem 7: 09/07/22 06:26 09/07/22 06:26 Labs: Abnormal Lab Results - Last 24 Hours (Table) 09/04/22 Range/Units 11:25 Procalcitonin 0.11 H (0.02-0.09) ng/mL Assessment and Plan (1) Pneumonia Current Visit: Yes Status: Acute Code(s): J18.9 - PNEUMONIA, UNSPECIFIED ORGANISM SNOMED Code(s): 647961866 Plan: 1patient presented to the hospital with weakness and a fall in this patient now with the CT of the chest did shows cavitary infiltrate in the left lower lobe and large area of consolidation in the left upper lobe with concern for possible aspiration pneumonia or developing abscess. 2try to obtain a sputum for gram stain culture. 3patient benefit from bronchoscopy lavage and possible biopsy to rule out malignancy. 4patient to continue cefepime and clindamycin while waiting for the culture to finalize. Time with Patient: Less than 30
--- NOTE | 2022-09-11 23:26 | P.PN ---
Subjective Progress Note Date: 09/06/22 Principal diagnosis: Pneumonia and positive blood culture Patient is a 81-year-old male presenting to the hospital initially on 08/28/2021 weakness and chills patient did have a diagnoses of covid 19 infection did have a positive blood culture which staphylococcus hominis likely skin contamination, the patient did have a CT of the chest did shows left upper lobe consultation with some cavitation. On today's evaluation that is 09/06/2022, the patient remains to be afebrile, the patient is breathing comfortably on room air, the patient denies having any chest pain, the patient did have a cough but not bringing up any sputum no nausea no vomiting no abdominal pain no diarrhea Objective - Vital Signs Vital signs: Vital Signs Temp 97.4 F L 09/06/22 02:00 Pulse 60 09/06/22 07:51 Resp 17 09/06/22 07:51 BP 151/88 09/06/22 02:00 Pulse Ox 93 L 09/06/22 02:00 FiO2 Intake & Output 09/05/22 09/06/22 09/06/22 18:59 06:59 18:59 Output Total 700 1200 Balance -700 -1200 Output: Urine 700 1200 Other: Voiding Method Incontinent Incontinent Incontinent External Catheter External Catheter External Catheter - Exam GENERAL DESCRIPTION: An elderly male lying in bed in no distress RESPIRATORY SYSTEM: Unlabored breathing , decreased breath sounds at bases HEART: S1 S2 regular rate and rhythm , ABDOMEN: Soft , no tenderness EXTREMITIES: No edema feet - Labs CBC & Chem 7: 09/07/22 06:26 09/07/22 06:26 Labs: Abnormal Lab Results - Last 24 Hours (Table) 09/06/22 09/06/22 Range/Units 05:45 05:45 WBC 19.47 H (4.50-10.00) X 10*3/uL RDW 16.0 H (11.5-14.5) % Metamyelocytes % 2 H (0-0) % Myelocytes % 4 H (0-0) % Neutrophils # (Manual) 14.99 H (2.00-8.90) X 10*3/uL Monocytes # (Manual) 1.56 H (0.20-1.00) X 10*3/uL Eosinophils # (Manual) 0 L (0.04-0.35) X 10*3/uL Sodium 132 L (135-145) mmol/L Anion Gap 8.50 L (10.00-18.00) mmol/L BUN 35.1 H (9.0-27.0) mg/dL BUN/Creatinine Ratio 35.10 H (12.00-20.00) Ratio ALT 99 H (10-49) U/L Total Protein 5.9 L (6.2-8.2) g/dL Albumin 3.0 L (3.8-4.9) g/dL Albumin/Globulin Ratio 1.03 L (1.60-3.17) g/dL Microbiology - Last 24 Hours (Table) 09/04/22 11:25 Blood Culture - Preliminary Blood No Growth after 24 hours Assessment and Plan (1) Pneumonia Current Visit: Yes Status: Acute Code(s): J18.9 - PNEUMONIA, UNSPECIFIED ORGANISM SNOMED Code(s): 019653555 Plan: 1patient presented to the hospital with weakness and a fall in this patient now with the CT of the chest did shows cavitary infiltrate in the left lower lobe and large area of consolidation in the left upper lobe with concern for possible aspiration pneumonia or developing abscess. 2sputum for gram stain culture has been requested but not collected. 3patient benefit from bronchoscopy lavage and possible biopsy to rule out abraham gnancy. 4patient currently being treated cefepime and clindamycin while waiting for the culture to finalize. Time with Patient: Less than 30
--- NOTE | 2022-09-11 23:28 | P.PN ---
Subjective Progress Note Date: 09/09/22 Principal diagnosis: Pneumonia and positive blood culture Patient is a 81-year-old male presenting to the hospital initially on 08/28/2021 weakness and chills patient did have a diagnoses of covid 19 infection did have a positive blood culture which staphylococcus hominis likely skin contamination, the patient did have a CT of the chest did shows left upper lobe consultation with some cavitation. On today's evaluation that is 09/09/2022, the patient continues to be afebrile, the patient is breathing comfortably on room air, the patient denies having any chest pain, the patient continue to have a cough but not bringing up any sputum, the patient denies nausea no vomiting no abdominal pain no diarrhea Objective - Vital Signs Vital signs: Vital Signs Temp 97.8 F 09/09/22 14:00 Pulse 84 09/09/22 14:00 Resp 16 09/09/22 14:00 BP 115/59 09/09/22 14:00 Pulse Ox 95 09/09/22 15:40 FiO2 Intake & Output 09/08/22 09/09/22 09/09/22 19:59 06:59 18:59 Intake Total Output Total Balance Intake: Oral Output: Urine Other: Voiding Method # Voids - Exam GENERAL DESCRIPTION: An elderly male lying in bed in no distress RESPIRATORY SYSTEM: Unlabored breathing , decreased breath sounds at bases HEART: S1 S2 regular rate and rhythm , ABDOMEN: Soft , no tenderness EXTREMITIES: No edema feet - Labs CBC & Chem 7: 09/11/22 07:13 09/11/22 07:13 Labs: Abnormal Lab Results - Last 24 Hours (Table) 09/09/22 09/09/22 09/09/22 Range/Units 06:17 06:17 06:17 WBC 20.70 H (4.50-10.00) X 10*3/uL MCHC 31.2 L (32.0-37.0) g/dL RDW 16.5 H (11.5-14.5) % Metamyelocytes % 2 H (0-0) % Myelocytes % 2 H (0-0) % Neutrophils # (Manual) 16.15 H (2.00-8.90) X 10*3/uL Monocytes # (Manual) 1.86 H (0.20-1.00) X 10*3/uL Eosinophils # (Manual) 0 L (0.04-0.35) X 10*3/uL Sodium 133 L (135-145) mmol/L Potassium 5.7 H (3.5-5.5) mmol/L Anion Gap 9.80 L (10.00-18.00) mmol/L BUN 31.4 H (9.0-27.0) mg/dL BUN/Creatinine Ratio 35.20 H (12.00-20.00) Ratio Procalcitonin 0.12 H (0.02-0.09) ng/mL Microbiology - Last 24 Hours (Table) 09/04/22 11:25 Blood Culture - Preliminary Blood No Growth after 120 hours Assessment and Plan (1) Pneumonia Current Visit: Yes Status: Acute Code(s): J18.9 - PNEUMONIA, UNSPECIFIED ORGANISM SNOMED Code(s): 210728555 Plan: 1patient presented to the hospital with weakness and a fall in this patient now with the CT of the chest did shows cavitary infiltrate in the left lower lobe and large area of consolidation in the left upper lobe with concern for possible aspiration pneumonia or developing abscess. 2sputum for gram stain culture has been requested but not collected so far. 3patient benefit from bronchoscopy lavage and possible biopsy to rule out malignancy. 4patient did have some clinical improvement and will continue with cefepime and clindamycin Time with Patient: Less than 30
--- NOTE | 2022-09-11 23:29 | P.PN ---
Subjective Progress Note Date: 09/10/22 Principal diagnosis: Pneumonia and positive blood culture Patient is a 81-year-old male presenting to the hospital initially on 08/28/2021 weakness and chills patient did have a diagnoses of covid 19 infection did have a positive blood culture which staphylococcus hominis likely skin contamination, the patient did have a CT of the chest did shows left upper lobe consultation with some cavitation. On today's evaluation that is 09/10/2022, the patient remains to be afebrile, the patient is breathing comfortably on room air, the patient denies having any chest pain, the patient did have a mild cough mostly dry in nature. Denies any nausea no vomiting no abdominal pain no diarrhea Objective - Vital Signs Vital signs: Vital Signs Temp 98.2 F 09/10/22 08:00 Pulse 51 L 09/10/22 08:00 Resp 16 09/10/22 09:25 BP 138/66 09/10/22 08:00 Pulse Ox 93 L 09/10/22 08:00 FiO2 Intake & Output 09/09/22 09/10/22 09/10/22 18:59 06:59 18:59 Intake Total 150 Output Total 1300 Balance 150 -1300 Intake: Intake, IV Titration 150 Amount Cefepime 2 gm In Sodium 100 Chloride 0.9% 100 ml @ 25 mls/hr IVPB Q12H [facility] Rx# :[id number] Clindamycin 600 mg In 50 Dextrose 5% in Water 50 ml @ 50 mls/hr IVPB Q8HR [facility] Rx#:[id number] Output: Urine 1300 Other: Voiding Method Diaper Diaper External Catheter External Catheter # Voids 4 # Bowel Movements 1 - Exam GENERAL DESCRIPTION: An elderly male lying in bed in no distress RESPIRATORY SYSTEM: Unlabored breathing , decreased breath sounds at bases HEART: S1 S2 regular rate and rhythm , ABDOMEN: Soft , no tenderness EXTREMITIES: No edema feet - Labs CBC & Chem 7: 09/11/22 07:13 09/11/22 07:13 Labs: Abnormal Lab Results - Last 24 Hours (Table) 09/10/22 09/10/22 Range/Units 04:25 04:25 WBC 24.01 H (4.50-10.00) X 10*3/uL RDW 16.7 H (11.5-14.5) % Metamyelocytes % 2 H (0-0) % Myelocytes % 2 H (0-0) % Neutrophils # (Manual) 19.45 H (2.00-8.90) X 10*3/uL Monocytes # (Manual) 1.20 H (0.20-1.00) X 10*3/uL Eosinophils # (Manual) 0 L (0.04-0.35) X 10*3/uL Sodium 132 L (135-145) mmol/L Anion Gap 7.50 L (10.00-18.00) mmol/L BUN 38.9 H (9.0-27.0) mg/dL BUN/Creatinine Ratio 38.90 H (12.00-20.00) Ratio Microbiology - Last 24 Hours (Table) 09/04/22 11:25 Blood Culture - Final Blood No Growth after 144 hours Assessment and Plan (1) Pneumonia Current Visit: Yes Status: Acute Code(s): J18.9 - PNEUMONIA, UNSPECIFIED ORGANISM SNOMED Code(s): 548537362 Plan: 1patient presented to the hospital with weakness and a fall in this patient now with the CT of the chest did shows cavitary infiltrate in the left lower lobe and large area of consolidation in the left upper lobe with concern for possible aspiration pneumonia or developing abscess. 2sputum for gram stain culture has been requested but not collected so far. 3 patient did have some clinical improvement and will continue with cefepime and clindamycin and monitor clinical course closely Time with Patient: Less than 30
--- NOTE | 2022-09-11 23:31 | P.PN ---
Subjective Progress Note Date: 09/11/22 Principal diagnosis: Pneumonia and positive blood culture Patient is a 81-year-old male presenting to the hospital initially on 08/28/2021 weakness and chills patient did have a diagnoses of covid 19 infection did have a positive blood culture which staphylococcus hominis likely skin contamination, the patient did have a CT of the chest did shows left upper lobe consultation with some cavitation. On today's evaluation that is 09/11/2022, the patient continues to be afebrile, the patient is breathing comfortably on room air, the patient denies having any chest pain, the patient did have a mild cough with occasional sputum, no hemoptysis, patient Denies any nausea no vomiting no abdominal pain no diarrhea Objective - Vital Signs Vital signs: Vital Signs Temp 98.0 F 09/11/22 08:00 Pulse 52 L 09/11/22 08:00 Resp 16 09/11/22 09:00 BP 129/79 09/11/22 08:00 Pulse Ox 94 L 09/11/22 08:00 FiO2 Intake & Output 09/10/22 09/11/22 09/11/22 18:59 06:59 18:59 Intake Total 480 Output Total 350 Balance 130 Intake: Oral 480 Output: Urine 350 Other: Voiding Method Diaper Diaper Diaper External Catheter External Catheter External Catheter # Voids 1 # Bowel Movements 1 - Exam GENERAL DESCRIPTION: An elderly male lying in bed in no distress RESPIRATORY SYSTEM: Unlabored breathing , decreased breath sounds at bases HEART: S1 S2 regular rate and rhythm , ABDOMEN: Soft , no tenderness EXTREMITIES: No edema feet - Labs CBC & Chem 7: 09/11/22 07:13 09/11/22 07:13 Labs: Abnormal Lab Results - Last 24 Hours (Table) 09/11/22 09/11/22 09/11/22 Range/Units 07:13 07:13 10:56 WBC 18.36 H (4.50-10.00) X 10*3/uL MCHC 31.0 L (32.0-37.0) g/dL RDW 16.9 H (11.5-14.5) % Sodium 134 L (135-145) mmol/L Anion Gap 7.60 L (10.00-18.00) mmol/L BUN 30.3 H (9.0-27.0) mg/dL BUN/Creatinine Ratio 30.30 H (12.00-20.00) Ratio Glucose 66 L (70-110) mg/dL Coronavirus (PCR) Detected A (Not Detectd) Microbiology - Last 24 Hours (Table) 09/04/22 11:25 Blood Culture - Final Blood No Growth after 144 hours Assessment and Plan (1) Pneumonia Current Visit: Yes Status: Acute Code(s): J18.9 - PNEUMONIA, UNSPECIFIED ORGANISM SNOMED Code(s): 974937144 Plan: 1patient presented to the hospital with weakness and a fall in this patient now with the CT of the chest did shows cavitary infiltrate in the left lower lobe and large area of consolidation in the left upper lobe with concern for possible aspiration pneumonia or developing abscess. 2sputum for gram stain culture has been requested but not collected so far. 3 patient did have some clinical improvement , every 6 hours which was multifocal pneumonia, patient will get a PICC line and will continue with cefepime on discharge 2 weeks and clindamycin will be discontinued Multiple family member at the bedside questions and concerns were answered in Layman terms Time with Patient: Less than 30
[2022-09-12] MEDS: CEFEPIME 2 GM in SODIUM CHLORIDE 0.9% 100 ML IVPB SCH ×3 (00:34→17:12)
[2022-09-12] MEDS: HYDROcodone/APAP 5-325MG 1 EACH TAB PO PRN ×3 (00:40→21:13)
[2022-09-12] MEDS ORDERED: CEFEPIME 2 GM in SODIUM CHLORIDE 0.9% 100 ML IVPB SCH (01:00)
[2022-09-12] MEDS: PANTOPRAZOLE 40 MG TABLET PO SCH (06:52)
[2022-09-12] MEDS: DIGOXIN 125 MCG TAB PO SCH (07:43)
[2022-09-12] MEDS: ZINC SULFATE 220 MG CAP PO SCH (07:43)
[2022-09-12] MEDS: BENZONATATE 100 MG CAP PO SCH ×3 (07:43→21:14)
[2022-09-12] MEDS: ASCORBIC ACID 500 MG TAB PO SCH (07:43)
[2022-09-12] MEDS: CHOLECALCIFEROL 25 MCG (1000 IU) TABLET PO SCH (07:43)
[2022-09-12] MEDS: ATORVASTATIN 20 MG TAB PO SCH (07:43)
[2022-09-12] MEDS: CLINDAMYCIN 600 MG in DEXTROSE 5% IN WATER 50 ML IVPB SCH ×6 (07:54→23:07)
[2022-09-12] MEDS: ALBUTEROL HFA INHALER INHALATION SCH ×4 (09:02→19:34)
[2022-09-12] MEDS: SYMBICORT 160-4.5 MCG INHALER INHALATION SCH ×2 (09:02→19:33)
--- NOTE | 2022-09-12 10:43 | P.PN ---
Subjective Progress Note Date: 09/10/22 81-year-old male with a known history of atrial flutter, coronary artery disease with history of stent placement, hearing disorder/deafness, hypertension, hyperlipidemia, cellulitis, peripheral vascular disease and prior history of smoking presents to ER with complaints of generalized weakness and chills and shortness of breath. Patient was diagnosed with COVID-19 infection at outside hospital. Plan was to discharge him to assisted but given COVID-19 positive status it was felt frequently discharged home. Patient has been having generalized weakness and falls at home. Patient has decreased oral intake.. Patient does have nausea. No chills or vomiting. No diarrhea. On admission patient was tachycardic and saturating at 96% on 2 L of oxygen via nasal cannula. Chest x-ray showed there is a left upper lobe and left lower lobe pneumonia which is mostly new compared to old exam. No heart failure seen. Laboratory data showed WBC 18.4 hemoglobin 15.8 and platelets 242 Sodium 136 potassium 3.9 chloride 100 bicarb is 24 BUN 19 and creatinine 0.92 and blood sugar is 125 Liver enzymes are not elevated. LDH 336 and CRP 21.8 troponin 0.031 and procalcitonin level is 0.19. Urinalysis is negative for infection COVID-19 PCR detected. 09/01/2022 Patient is seen and evaluated in follow-up on the regular medical floor. He is awake and alert in no acute distress. Maintaining good O2 saturations in the 90s on 2 L/m per nasal cannula. Afebrile. He is continued on Symbicort, albuterol, Decadron and vitamin supplements. Anticoagulated with Eliquis. Remains on antibiotics in the form of ceftriaxone. Follow-up chest x-ray in a.m. Pulmonary on board and recommending to continue with ceftriaxone; patient awaits placement to subacute rehab 09/02/2022 Patient is seen and evaluated and discussed with nursing staff; history of fall with laceration back of head with albert in place; patient does have occipital hematoma; plan is to take the albert out and wound care consult He is currently on 2 L. He's not receiving any IV fluids. The patient does complain about his cough. I had some Tessalon Perles, 200 mg, 3 times a day. He denies any significant shortness of breath. He is not producing any phlegm when he coughs. He denies any fever or chills. He denies any chest pain or chest discomfort. White count 24.3, hemoglobin 13.6, hematocrit 41.9, and platelet count 291,000. Blood cultures are positive for staph hominis. Chest x-ray is showing some patchy infiltrates in the left lung, which could be pneumonia and/or atelectasis. He continues on an albuterol inhaler, vitamin C, vitamin D3, and zinc, Symbicort, Decadron, and Rocephin. Discharge planning in progress 09/03/2022 pt is still tachypnic and with cough and phlegm , little amount, no chest pain he is awake and alert and knows he is in the hospital , however he has no insight into his illness, he thought he is in the hospital for his leg pain , i told him about his pna no GI or urinary complaint he has some right leg pain pulmonary team on the case and recommended ct of the chest which is pending now. 09/24/2020, Patient looks severely weak while lying in bed. Minimal tachypnea. Occasional cough. No chest pain and he is saturating 90% on room air. Computed tomography scan showing extensive left side infiltrate with cavitary lesion. Review of possible blood culture for staph hominis. Infectious disease consult is up-to-date and input is appreciated, antibiotics was adjusted to clindamycin and cefepime. He remains on dexamethasone for possible culprit Pulmonary team input is appreciated 09/05/2022 Patient still lethargic but clinically stable, he is improving slowly and gradually Vitals stable, oxygen saturation is acceptable He remains on clindamycin and cefepime and just x-ray from today showing improvement in infiltrate He is also on liquids home dose, multiple vitamins and Plavix. 09/06/2022 Patient is currently lying in the bed. Awake alert and oriented x3. He is let hargic. No complaints of chest pain or worsening shortness of breath. Patient is being continued on antibiotics cefepime and clindamycin for pneumonia. Also on dexamethasone 6 mg daily. Also on duo nebs. Laboratory data showed WBC 19.4, hemoglobin 13.3 and platelets 398 Sodium 132 potassium 5.3 chloride 198 BUN 35.1 and creatinine 1.0 Procalcitonin level is 0.11 09/07/2022 Patient is resting in bed. Awake alert oriented x3. Currently on room air. No complaints of chest pain or shortness of breath. No nausea vomiting abdominal diarrhea. No cough or sputum production. Patient is on antibiotics for left- sided pneumonia. No fever no chills. Currently back on room air. No headache or dizziness lightheadedness. PT OT was consulted and possible discharge to rehab. Laboratory data showed WBC 19.6, hemoglobin 14.7 and platelets 411 Sodium 134 potassium 5.4 chloride 100 bicarb is 25.5 BUN 37.8 and creatinine 1.0 Pulmonary is on board. 09/08/2022 Patient is currently resting in the bed. Awake alert and oriented x3. No cough or sputum production. No wheezing noted on exam. Breathing status is much better. Currently on room air. Currently on dexamethasone and antibiotics in the form of cefepime and clindamycin. Laboratory data reviewed. Chest x-ray for tomorrow was ordered. Pulmonary is on board. Patient had an episode of coughing spell while eating with possible aspiration. Currently denies any symptoms otherwise. 09/09/2022 Patient is resting in the bed. Awake alert and oriented x3. No complaints of chest pain or shortness of breath. No nausea vomiting abdominal pain or diarrhea. Tolerating oral diet. No cough or sputum production. Patient completed 10 days of dexamethasone course and will be discontinued. Patient is being current cefepime and clindamycin. ID is on board.. Afebrile. No headache or dizziness or lightheadedness. PT OT consult and possible discharge to rehab. Patient still having significant leukocytosis. Chest x-ray today showed worsening multifocal airspace opacities. 09/10/2022 Patient is currently sitting in a chair comfortably. Complains of generalized weakness. Breathing status is about the same. No acute distress. No compressive chest pain. Patient has been afebrile. Continued on antibiotics the form of clindamycin and cefepime. Also on breathing treatments and Symbicort and anticoagulation with the liquids. Laboratory data showed WBC 24.0 hemoglobin 13.9 and platelets 376 Sodium 132 potassium 4.8 chloride 99BUN 38.9 and creatinine 1.0 Pulmonary and ID is on board. Current medications reviewed. Objective - Vital Signs Vital signs: Vital Signs Temp 97.9 F 09/10/22 19:34 Pulse 80 09/10/22 19:34 Resp 16 09/10/22 19:34 BP 124/78 09/10/22 19:34 Pulse Ox 93 L 09/10/22 19:34 FiO2 Intake & Output 09/10/22 09/10/22 09/11/22 06:59 18:59 06:59 Intake Total 480 Output Total 1300 350 Balance -1300 130 Intake: Oral 480 Output: Urine 1300 350 Other: Voiding Method Diaper Diaper External Catheter External Catheter # Bowel Movements 1 1 - Exam - Exam GENERAL: The patient is alert and oriented x3, not in any acute distress. Well developed, well nourished. HEENT: Pupils are round and equally reacting to light. EOMI. No scleral icterus. No conjunctival pallor. Normocephalic, atraumatic. No pharyngeal erythema. No thyromegaly. CARDIOVASCULAR: S1 and S2 present. No murmurs, rubs, or gallops. -PULMONARY: Chest is clear to auscultation, no wheezing or crackles. tachypnea with left side crepitation ABDOMEN: Soft, nontender, nondistended, normoactive bowel sounds. No palpable organomegaly. MUSCULOSKELETAL: No joint swelling or deformity. EXTREMITIES: No cyanosis, clubbing, or pedal edema. NEUROLOGICAL: Gross neurological examination did not reveal any focal deficits. SKIN: No rashes. no petechiae. - Labs CBC & Chem 7: 09/11/22 07:13 09/11/22 07:13 Labs: Abnormal Lab Results - Last 24 Hours (Table) 09/10/22 09/10/22 Range/Units 04:25 04:25 WBC 24.01 H (4.50-10.00) X 10*3/uL RDW 16.7 H (11.5-14.5) % Metamyelocytes % 2 H (0-0) % Myelocytes % 2 H (0-0) % Neutrophils # (Manual) 19.45 H (2.00-8.90) X 10*3/uL Monocytes # (Manual) 1.20 H (0.20-1.00) X 10*3/uL Eosinophils # (Manual) 0 L (0.04-0.35) X 10*3/uL Sodium 132 L (135-145) mmol/L Anion Gap 7.50 L (10.00-18.00) mmol/L BUN 38.9 H (9.0-27.0) mg/dL BUN/Creatinine Ratio 38.90 H (12.00-20.00) Ratio Microbiology - Last 24 Hours (Table) 09/04/22 11:25 Blood Culture - Final Blood No Growth after 144 hours Assessment and Plan Assessment: Acute Left sided pneumonia ./Multifocal pneumonia is Acute COVID-19 pneumonia-patient has not been vaccinated. Elevated inflammatory markers Acute hypoxic respiratory failure requiring oxygen at 2 L via nasal cannula. titrtae down to RA Generalized weakness and falls at home. Chronic atrial fibrillation/flutter on anticoagulation with Eliquis. Coronary disease history of stent placement GERD Hearing disorder/deafness Hypertension Hyperlipidemia Osteoarthritis Peripheral vascular disease with bilateral occluded SFA and bilateral popliteal arteries. History of gout Plan: Patient was titrated down to room air. Chest x-ray showing multifocal pneumonia.. Was given antibiotics cefepime and clindamycin and dexamethasone for gram neg bacteria and covid pna. Infectious and pulmonary team on the case Due to hypoxia patient was started on dexamethasone 6 mg daily and continue with duo nebs and Symbicort.completed dexamethasone for 10 days. DCed dexamethasone. Continue supportive care with multivitamins and GI prophylaxis. dvt px : eliquis gi px: ppi prognosis is guarded Time with Patient: Greater than 30
--- NOTE | 2022-09-12 10:45 | P.PN ---
Subjective Progress Note Date: 09/11/22 81-year-old male with a known history of atrial flutter, coronary artery disease with history of stent placement, hearing disorder/deafness, hypertension, hyperlipidemia, cellulitis, peripheral vascular disease and prior history of smoking presents to ER with complaints of generalized weakness and chills and shortness of breath. Patient was diagnosed with COVID-19 infection at outside hospital. Plan was to discharge him to retirement but given COVID-19 positive status it was felt frequently discharged home. Patient has been having generalized weakness and falls at home. Patient has decreased oral intake.. Patient does have nausea. No chills or vomiting. No diarrhea. On admission patient was tachycardic and saturating at 96% on 2 L of oxygen via nasal cannula. Chest x-ray showed there is a left upper lobe and left lower lobe pneumonia which is mostly new compared to old exam. No heart failure seen. Laboratory data showed WBC 18.4 hemoglobin 15.8 and platelets 242 Sodium 136 potassium 3.9 chloride 100 bicarb is 24 BUN 19 and creatinine 0.92 and blood sugar is 125 Liver enzymes are not elevated. LDH 336 and CRP 21.8 troponin 0.031 and procalcitonin level is 0.19. Urinalysis is negative for infection COVID-19 PCR detected. 09/01/2022 Patient is seen and evaluated in follow-up on the regular medical floor. He is awake and alert in no acute distress. Maintaining good O2 saturations in the 90s on 2 L/m per nasal cannula. Afebrile. He is continued on Symbicort, albuterol, Decadron and vitamin supplements. Anticoagulated with Eliquis. Remains on antibiotics in the form of ceftriaxone. Follow-up chest x-ray in a.m. Pulmonary on board and recommending to continue with ceftriaxone; patient awaits placement to subacute rehab 09/02/2022 Patient is seen and evaluated and discussed with nursing staff; history of fall with laceration back of head with albert in place; patient does have occipital hematoma; plan is to take the albert out and wound care consult He is currently on 2 L. He's not receiving any IV fluids. The patient does complain about his cough. I had some Tessalon Perles, 200 mg, 3 times a day. He denies any significant shortness of breath. He is not producing any phlegm when he coughs. He denies any fever or chills. He denies any chest pain or chest discomfort. White count 24.3, hemoglobin 13.6, hematocrit 41.9, and platelet count 291,000. Blood cultures are positive for staph hominis. Chest x-ray is showing some patchy infiltrates in the left lung, which could be pneumonia and/or atelectasis. He continues on an albuterol inhaler, vitamin C, vitamin D3, and zinc, Symbicort, Decadron, and Rocephin. Discharge planning in progress 09/03/2022 pt is still tachypnic and with cough and phlegm , little amount, no chest pain he is awake and alert and knows he is in the hospital , however he has no insight into his illness, he thought he is in the hospital for his leg pain , i told him about his pna no GI or urinary complaint he has some right leg pain pulmonary team on the case and recommended ct of the chest which is pending now. 09/24/2020, Patient looks severely weak while lying in bed. Minimal tachypnea. Occasional cough. No chest pain and he is saturating 90% on room air. Computed tomography scan showing extensive left side infiltrate with cavitary lesion. Review of possible blood culture for staph hominis. Infectious disease consult is up-to-date and input is appreciated, antibiotics was adjusted to clindamycin and cefepime. He remains on dexamethasone for possible culprit Pulmonary team input is appreciated 09/05/2022 Patient still lethargic but clinically stable, he is improving slowly and gradually Vitals stable, oxygen saturation is acceptable He remains on clindamycin and cefepime and just x-ray from today showing improvement in infiltrate He is also on liquids home dose, multiple vitamins and Plavix. 09/06/2022 Patient is currently lying in the bed. Awake alert and oriented x3. He is let hargic. No complaints of chest pain or worsening shortness of breath. Patient is being continued on antibiotics cefepime and clindamycin for pneumonia. Also on dexamethasone 6 mg daily. Also on duo nebs. Laboratory data showed WBC 19.4, hemoglobin 13.3 and platelets 398 Sodium 132 potassium 5.3 chloride 198 BUN 35.1 and creatinine 1.0 Procalcitonin level is 0.11 09/07/2022 Patient is resting in bed. Awake alert oriented x3. Currently on room air. No complaints of chest pain or shortness of breath. No nausea vomiting abdominal diarrhea. No cough or sputum production. Patient is on antibiotics for left- sided pneumonia. No fever no chills. Currently back on room air. No headache or dizziness lightheadedness. PT OT was consulted and possible discharge to rehab. Laboratory data showed WBC 19.6, hemoglobin 14.7 and platelets 411 Sodium 134 potassium 5.4 chloride 100 bicarb is 25.5 BUN 37.8 and creatinine 1.0 Pulmonary is on board. 09/08/2022 Patient is currently resting in the bed. Awake alert and oriented x3. No cough or sputum production. No wheezing noted on exam. Breathing status is much better. Currently on room air. Currently on dexamethasone and antibiotics in the form of cefepime and clindamycin. Laboratory data reviewed. Chest x-ray for tomorrow was ordered. Pulmonary is on board. Patient had an episode of coughing spell while eating with possible aspiration. Currently denies any symptoms otherwise. 09/09/2022 Patient is resting in the bed. Awake alert and oriented x3. No complaints of chest pain or shortness of breath. No nausea vomiting abdominal pain or diarrhea. Tolerating oral diet. No cough or sputum production. Patient completed 10 days of dexamethasone course and will be discontinued. Patient is being current cefepime and clindamycin. ID is on board.. Afebrile. No headache or dizziness or lightheadedness. PT OT consult and possible discharge to rehab. Patient still having significant leukocytosis. Chest x-ray today showed worsening multifocal airspace opacities. 09/10/2022 Patient is currently sitting in a chair comfortably. Complains of generalized weakness. Breathing status is about the same. No acute distress. No compressive chest pain. Patient has been afebrile. Continued on antibiotics the form of clindamycin and cefepime. Also on breathing treatments and Symbicort and anticoagulation with the liquids. Laboratory data showed WBC 24.0 hemoglobin 13.9 and platelets 376 Sodium 132 potassium 4.8 chloride 99BUN 38.9 and creatinine 1.0 Pulmonary and ID is on board. 09/11/2022 Patient is currently sitting with it. Awake alert and oriented 3.afebrile. Currently on room air. No nausea vomiting or abdominal pain or diarrhea. Tolerating oral intake slowly. No cough or sputum production. Remains on antibiotics in the form of cefepime and clindamycin. PTOT consult.does have generalized weakness. laboratory data showed WBC count improving to18.3 today. Hemoglobin 14.1 and platelets 311 Sodium 134 potassium 5.1 chloride 100 bicarb is 26.4 BUN 30.3 and creatinine 1.0 Current medications reviewed. Objective - Vital Signs Vital signs: Vital Signs Temp 98.3 F 09/11/22 19:11 Pulse 41 L 09/11/22 19:11 Resp 17 09/11/22 19:11 BP 125/73 09/11/22 19:11 Pulse Ox 94 L 09/11/22 19:11 FiO2 Intake & Output 09/11/22 09/11/22 09/12/22 06:59 18:59 06:59 Intake Total 480 Output Total 550 Balance -70 Intake: Oral 480 Output: Urine 550 Other: Voiding Method Diaper Diaper External Catheter External Catheter # Voids 1 - Exam - Exam GENERAL: The patient is alert and oriented x3, not in any acute distress. Well developed, well nourished. HEENT: Pupils are round and equally reacting to light. EOMI. No scleral icterus. No conjunctival pallor. Normocephalic, atraumatic. No pharyngeal erythema. No thyromegaly. CARDIOVASCULAR: S1 and S2 present. No murmurs, rubs, or gallops. -PULMONARY: Chest is clear to auscultation, no wheezing or crackles. tachypnea with left side crepitation ABDOMEN: Soft, nontender, nondistended, normoactive bowel sounds. No palpable organomegaly. MUSCULOSKELETAL: No joint swelling or deformity. EXTREMITIES: No cyanosis, clubbing, or pedal edema. NEUROLOGICAL: Gross neurological examination did not reveal any focal deficits. SKIN: No rashes. no petechiae. - Labs CBC & Chem 7: 09/11/22 07:13 09/11/22 07:13 Labs: Abnormal Lab Results - Last 24 Hours (Table) 09/11/22 09/11/22 09/11/22 Range/Units 07:13 07:13 10:56 WBC 18.36 H (4.50-10.00) X 10*3/uL MCHC 31.0 L (32.0-37.0) g/dL RDW 16.9 H (11.5-14.5) % Metamyelocytes % 3 H (0-0) % Myelocytes % 3 H (0-0) % Neutrophils # (Manual) 13.59 H (2.00-8.90) X 10*3/uL Monocytes # (Manual) 2.02 H (0.20-1.00) X 10*3/uL Basophils # (Manual) 0.18 H (0.00-0.10) X 10*3/uL Sodium 134 L (135-145) mmol/L Anion Gap 7.60 L (10.00-18.00) mmol/L BUN 30.3 H (9.0-27.0) mg/dL BUN/Creatinine Ratio 30.30 H (12.00-20.00) Ratio Glucose 66 L (70-110) mg/dL Coronavirus (PCR) Detected A (Not Detectd) Assessment and Plan Assessment: Acute Left sided pneumonia ./Multifocal pneumonia is Acute COVID-19 pneumonia-patient has not been vaccinated. Elevated inflammatory markers Acute hypoxic respiratory failure requiring oxygen at 2 L via nasal cannula. titrtae down to RA Generalized weakness and falls at home. Chronic atrial fibrillation/flutter on anticoagulation with Eliquis. Coronary disease history of stent placement GERD Hearing disorder/deafness Hypertension Hyperlipidemia Osteoarthritis Peripheral vascular disease with bilateral occluded SFA and bilateral popliteal arteries. History of gout Plan: Patient was titrated down to room air. Chest x-ray showing multifocal pneumonia.. Was given antibiotics cefepime and clindamycin and dexamethasone for gram neg bacteria and covid pna. Infectious and pulmonary team on the case Due to hypoxia patient was started on dexamethasone 6 mg daily and continue with duo nebs and Symbicort.completed dexamethasone for 10 days. DCed dexamethasone. Continue supportive care with multivitamins and GI prophylaxis. dvt px : eliquis gi px: ppi prognosis is guarded Time with Patient: Greater than 30
[2022-09-12] MEDS: CLOPIDOGREL 75 MG TAB PO SCH (10:51)
[2022-09-12] MEDS: APIXABAN 2.5 MG TABLET PO SCH ×2 (10:51→21:13)
[2022-09-12] MEDS ORDERED: LIDOCAINE 1% INJ 10MG/ML (30 ML VIAL-PF) SQ ONE (11:29)
[2022-09-12 11:31] LABS: African American GFR (CKD) 91.9 (60.0-200.0); Albumin 3.2 g/dL (3.8-4.9); Albumin/Globulin Ratio 1.39 (1.60-3.17); Anion Gap 9.9 mmol/L (10.00-18.00); BUN/Creat Ratio 27.44 Ratio (12.00-20.00); Blood Urea Nitrogen 24.7 mg/dL (9.0-27.0); C Reactive Protein 6.6 mg/dL (0.00-0.80); Calcium 9.2 mg/dL (8.7-10.3); Carbon Dioxide 24.1 mmol/L (20.0-27.5); Globulin 2.3 g/dL (1.6-3.3); INR 1.07 (0.90-1.11); Non-African American GFR(CKD) 79.3 (60.0-200.0); Potassium 4.9 mmol/L (3.5-5.5); Prothrombin Time 11.7 sec (9.9-11.9); Total Bilirubin 0.9 mg/dL (0.30-1.20); Total Protein 5.5 g/dL (6.2-8.2)
--- NOTE | 2022-09-12 13:13 | IR ---
PICC LINE PLACEMENT: HISTORY: Infection requiring long-term antibiotic therapy PROCEDURE: Ultrasound and fluoroscopic guidance of PICC line placement. COMPLICATIONS: None ANESTHESIA: 1. 1% Lidocaine locally. FINDINGS/TECHNIQUE: The procedure was explained to the patient. The risks, complications, benefits and alternatives were discussed and any questions were answered. Informed consent was obtained. The patient was placed supine on the fluoroscopic table and prepped and draped in the usual sterile fash ion. Utilizing a 21 gauge needle and sonographic and fluoroscopic guidance, access in the left basi lic vein was achieved and there is placement of a 0.018 guidewire. The vein is patent. A 4-F sheath was placed over the guidewire. The guidewire and dilator were removed and a 4-F. PICC line was plac ed through the sheath with the tip at the level of the SVC. The sheath was removed, the catheter was flushed and sutured into position. The patient was stable throughout the procedure and remained sta ble upon discharge from the Department of Radiology. The vein puncture was patent under ultrasound. A manzanares scale image was obtained to document patency of the vein punctured. All elements of the maximal barrier technique were utilized. FLUOROSCOPY TIME: 0.3 minutes and one images limited IMPRESSION: Successful PICC line placement under ultrasound and fluoroscopic guidance.
--- NOTE | 2022-09-12 14:26 | P.PN ---
Subjective Progress Note Date: 09/12/22 81-year-old male, who presents to the emergency department, on August 28, complaining of generalized weakness, chills, and fatigue. The patient was tested for coronavirus, by nasal swab, and was positive. Patient was to be discharged to the retirement, but given the positive nasal swab for coronaviru s, the patient was admitted to the hospital. We were consulted because of the patient's shortness of breath, and cough. Currently, he's on 2 L of oxygen. He's not receiving any IV fluids. He is not manifesting any overt signs of respiratory distress. He has a history of atrial flutter, CAD, heart failure, COPD, GERD, hyperlipidemia, hypertension, and osteoarthritis, among other things. White count 23, hemoglobin 14.4, hematocrit 44.5, platelet count 254,000. Sodium 138, potassium 4.7, chlorides 101, CO2 26, anion gap 11, BUN 24, creatinine 1.1. The patient's chest x-ray shows evidence of left-sided pneumonia. The patient's pro-calcitonin level is 0.19. The patient is seen today 08/31/2022 in follow-up on the regular medical floor. He is currently sitting up at the bedside. Awake and alert in no acute distress. He is maintaining O2 saturations in the 90s on room air. No IV f luids. White count 20.8. Hemoglobin 14.1. Sodium 134. Potassium 4.2. BUN 26. Creatinine 0.88. Glucose 143. He is continued on vitamin supplements, anticoagulated with Eliquis, remains on Decadron. Blood culture with coag- negative staph. Currently on ceftriaxone. The patient is seen today 09/01/2022 in follow-up on the regular medical floor. He is awake and alert in no acute distress. Maintaining good O2 saturations in the 90s on 2 L/m per nasal cannula. Afebrile. He is continued on Symbicort, albuterol, Decadron and vitamin supplements. Anticoagulated with Eliquis. Remains on antibiotics in the form of ceftriaxone. Follow-up chest x-ray in a.m. The patient is seen today 09/10/2022 in follow-up on the regular medical floor. He is currently resting comfortably in bed. Awake and alert in no acute distress. He is maintaining O2 saturations in the 90s on room air. Follow up blood cultures reveal no growth. Follow-up chest x-ray continues to show multifocal airspace disease more so on the left. He is continued on cefepime and clindamycin. Continue on Symbicort, albuterol. Anticoagulated with Eliquis. Remains on vitamin supplements. Patient is seen today 09/11/2022 in follow-up on the regular medical floor. He is currently sitting up in a chair at bedside. Awake and alert in no acute distress. He is maintaining good O2 saturations in the 90s on room air. He's afebrile. Hemodynamically stable. Follow-up blood cultures revealed no growth. White count 18.3. Hematoma 14.1. Sodium 134. Potassium 5.1. BUN 30. Creatinine 1.0. Coronavirus by PCR still detected. He is continued on Ventolin, Symbicort. Antibiotics in the form of cefepime and clindamycin. Continued on vitamin supplements. Completed Decadron. The patient is seen today 09/12/2022 and a follow-up on the regular medical floor. He is currently sitting up in a chair at the bedside. Awake and alert in no acute distress. He is maintaining O2 saturations in the 90s on room air. He's been afebrile. Hemodynamically stable. PICC line was placed today. Initial blood cultures positive for staph hominis. Follow-up blood cultures revealed no growth. Sodium 135. Potassium 4.9. BUN 24. Creatinine 0.9. Pro- calcitonin 0.21. He remains on cefepime and clindamycin per ID services. Objective - Vital Signs Vital signs: Vital Signs Temp 98.0 F 09/12/22 07:22 Pulse 79 09/12/22 07:22 Resp 17 09/12/22 07:22 BP 152/89 09/12/22 07:22 Pulse Ox 94 L 09/12/22 09:02 FiO2 Intake & Output 09/11/22 09/12/22 09/12/22 18:59 06:59 18:59 Intake Total 480 Output Total 550 500 Balance -70 -500 Intake: Oral 480 Output: Urine 550 500 Other: Voiding Method Diaper Diaper Diaper External Catheter External Catheter External Catheter # Bowel Movements 2 - Exam GENERAL EXAM: Alert, pleasant 81-year-old male patient, on room air, comfortable in no apparent distress. HEAD: Normocephalic. EYES: Normal reaction of pupils, equal size. NOSE: Clear with pink turbinates. THROAT: No erythema or exudates. NECK: No masses, no JVD. CHEST: No chest wall deformity. LUNGS: Equal air entry with bilateral scattered rhonchi. CVS: S1 and S2 normal with no audible murmur, regular rhythm. ABDOMEN: No hepatosplenomegaly, normal bowel sounds, no guarding or rigidity. SPINE: No scoliosis or deformity SKIN: No rashes CENTRAL NERVOUS SYSTEM: No focal deficits, tone is normal in all 4 extremities. EXTREMITIES: There is no peripheral edema. No clubbing, no cyanosis. Peripheral pulses are intact. - Labs CBC & Chem 7: 09/11/22 07:13 09/12/22 05:39 Labs: Abnormal Lab Results - Last 24 Hours (Table) 09/12/22 09/12/22 Range/Units 05:39 05:39 Anion Gap 9.90 L (10.00-18.00) mmol/L BUN/Creatinine Ratio 27.44 H (12.00-20.00) Ratio AST 13 L (14-35) U/L C-Reactive Protein 6.60 H (0.00-0.80) mg/dL Total Protein 5.5 L (6.2-8.2) g/dL Albumin 3.2 L (3.8-4.9) g/dL Albumin/Globulin Ratio 1.39 L (1.60-3.17) g/dL Procalcitonin 0.21 H (0.02-0.09) ng/mL Assessment and Plan Assessment: Acute hypoxemic respiratory failure secondary to left-sided pneumonia. Improved and on room air. Treated with cefepime and clindamycin History of coronavirus infection, and possible coronavirus associated pneumonia. Still positive by PCR on 09/11/2022. History of coronary artery disease, with previous stenting. History of atrial flutter. Anticoagulated with Eliquis History of CHF. History of COPD, from previous tobacco use. History of hyperlipidemia. History of hypertension. History of deafness. History of GERD. History of gout. Multiple other medical problems and comorbidities. Plan: The patient was seen and evaluated Medications and labs reviewed PICC line placed today Lantus for 2 weeks of cefepime per ID services May need subacute rehabilitation, possibly Omayra dominguez Recommend close follow-up in our office in one to two-weeks If no change in chest x-ray consider malignancy, would do outpatient workup at that time I have personally seen and examined the patient, performed the documentation and the assessment and plan as written. Number of minutes spent on the visit: 10.
[2022-09-12] MEDS: SODIUM CHLORIDE 0.9% 500 ML 500 ML IV SCH (15:53)
[2022-09-13] MEDS: CEFEPIME 2 GM in SODIUM CHLORIDE 0.9% 100 ML IVPB SCH ×2 (00:30→10:57)
[2022-09-13] MEDS: HYDROcodone/APAP 5-325MG 1 EACH TAB PO PRN ×2 (05:02→13:50)
[2022-09-13] MEDS: PANTOPRAZOLE 40 MG TABLET PO SCH (06:52)
[2022-09-13 07:43] VITALS: BP 134/75; PULSE 51; RESP 16; TEMP 98.1
[2022-09-13] MEDS: ALBUTEROL HFA INHALER INHALATION SCH ×2 (08:35→12:04)
[2022-09-13] MEDS: SYMBICORT 160-4.5 MCG INHALER INHALATION SCH (08:35)
[2022-09-13 08:53] LABS: Basophils # (A) 0.08 X 10*3/uL (0.00-0.10); Basophils % (A) 0.5 %; Eosinophils # (A) 0.22 X 10*3/uL (0.04-0.35); Eosinophils % (A) 1.4 %; HCT 46.3 % (39.6-50.0); HGB 14.5 g/dL (13.0-17.0); Immature Grans, Automated 1.9 %; Lymphocytes # (A) 1.17 X 10*3/uL (0.90-5.00); Lymphocytes % (A) 7.4 %; MCH 29.8 pg (27.0-32.0); MCHC 31.3 g/dL (32.0-37.0); MCV 95.3 fL (80.0-97.0); Mean Platelet Volume 10.3 fL (9.5-12.2); Monocytes # (A) 1.76 X 10*3/uL (0.20-1.00); Monocytes % (A) 11.2 %; NRBC Per 100 WBC 0 /100 WBCS (0.0-0.0); Neutrophils # (A) 12.21 X 10*3/uL (1.80-7.70); Neutrophils % (A) 77.6 %; Platelet Count 273 X 10*3/uL (140-440); RBC 4.86 X 10*6/uL (4.40-5.60); RDW 16.5 % (11.5-14.5); WBC 15.74 X 10*3/uL (4.50-10.00)
[2022-09-13 09:19] LABS: African American GFR (CKD) 91.9 (60.0-200.0); Anion Gap 8.5 mmol/L (10.00-18.00); Blood Urea Nitrogen 20.7 mg/dL (9.0-27.0); Calcium 9.1 mg/dL (8.7-10.3); Carbon Dioxide 23.5 mmol/L (20.0-27.5); Non-African American GFR(CKD) 79.3 (60.0-200.0); Potassium 4.9 mmol/L (3.5-5.5)
[2022-09-13] MEDS: ATORVASTATIN 20 MG TAB PO SCH (10:57)
[2022-09-13] MEDS: ZINC SULFATE 220 MG CAP PO SCH (10:57)
[2022-09-13] MEDS: CHOLECALCIFEROL 25 MCG (1000 IU) TABLET PO SCH (10:57)
[2022-09-13] MEDS: BENZONATATE 100 MG CAP PO SCH (10:57)
[2022-09-13] MEDS: DIGOXIN 125 MCG TAB PO SCH (10:57)
[2022-09-13] MEDS: APIXABAN 2.5 MG TABLET PO SCH (10:57)
[2022-09-13] MEDS: CLOPIDOGREL 75 MG TAB PO SCH (10:58)
[2022-09-13] MEDS: ASCORBIC ACID 500 MG TAB PO SCH (10:58)
--- NOTE | 2022-09-13 11:35 | P.PN ---
Subjective Progress Note Date: 09/12/22 81-year-old male with a known history of atrial flutter, coronary artery disease with history of stent placement, hearing disorder/deafness, hypertension, hyperlipidemia, cellulitis, peripheral vascular disease and prior history of smoking presents to ER with complaints of generalized weakness and chills and shortness of breath. Patient was diagnosed with COVID-19 infection at outside hospital. Plan was to discharge him to long term but given COVID-19 positive status it was felt frequently discharged home. Patient has been having generalized weakness and falls at home. Patient has decreased oral intake.. Patient does have nausea. No chills or vomiting. No diarrhea. On admission patient was tachycardic and saturating at 96% on 2 L of oxygen via nasal cannula. Chest x-ray showed there is a left upper lobe and left lower lobe pneumonia which is mostly new compared to old exam. No heart failure seen. Laboratory data showed WBC 18.4 hemoglobin 15.8 and platelets 242 Sodium 136 potassium 3.9 chloride 100 bicarb is 24 BUN 19 and creatinine 0.92 and blood sugar is 125 Liver enzymes are not elevated. LDH 336 and CRP 21.8 troponin 0.031 and procalcitonin level is 0.19. Urinalysis is negative for infection COVID-19 PCR detected. 09/01/2022 Patient is seen and evaluated in follow-up on the regular medical floor. He is awake and alert in no acute distress. Maintaining good O2 saturations in the 90s on 2 L/m per nasal cannula. Afebrile. He is continued on Symbicort, albuterol, Decadron and vitamin supplements. Anticoagulated with Eliquis. Remains on antibiotics in the form of ceftriaxone. Follow-up chest x-ray in a.m. Pulmonary on board and recommending to continue with ceftriaxone; patient awaits placement to subacute rehab 09/02/2022 Patient is seen and evaluated and discussed with nursing staff; history of fall with laceration back of head with albert in place; patient does have occipital hematoma; plan is to take the albert out and wound care consult He is currently on 2 L. He's not receiving any IV fluids. The patient does complain about his cough. I had some Tessalon Perles, 200 mg, 3 times a day. He denies any significant shortness of breath. He is not producing any phlegm when he coughs. He denies any fever or chills. He denies any chest pain or chest discomfort. White count 24.3, hemoglobin 13.6, hematocrit 41.9, and platelet count 291,000. Blood cultures are positive for staph hominis. Chest x-ray is showing some patchy infiltrates in the left lung, which could be pneumonia and/or atelectasis. He continues on an albuterol inhaler, vitamin C, vitamin D3, and zinc, Symbicort, Decadron, and Rocephin. Discharge planning in progress 09/03/2022 pt is still tachypnic and with cough and phlegm , little amount, no chest pain he is awake and alert and knows he is in the hospital , however he has no insight into his illness, he thought he is in the hospital for his leg pain , i told him about his pna no GI or urinary complaint he has some right leg pain pulmonary team on the case and recommended ct of the chest which is pending now. 09/24/2020, Patient looks severely weak while lying in bed. Minimal tachypnea. Occasional cough. No chest pain and he is saturating 90% on room air. Computed tomography scan showing extensive left side infiltrate with cavitary lesion. Review of possible blood culture for staph hominis. Infectious disease consult is up-to-date and input is appreciated, antibiotics was adjusted to clindamycin and cefepime. He remains on dexamethasone for possible culprit Pulmonary team input is appreciated 09/05/2022 Patient still lethargic but clinically stable, he is improving slowly and gradually Vitals stable, oxygen saturation is acceptable He remains on clindamycin and cefepime and just x-ray from today showing improvement in infiltrate He is also on liquids home dose, multiple vitamins and Plavix. 09/06/2022 Patient is currently lying in the bed. Awake alert and oriented x3. He is let hargic. No complaints of chest pain or worsening shortness of breath. Patient is being continued on antibiotics cefepime and clindamycin for pneumonia. Also on dexamethasone 6 mg daily. Also on duo nebs. Laboratory data showed WBC 19.4, hemoglobin 13.3 and platelets 398 Sodium 132 potassium 5.3 chloride 198 BUN 35.1 and creatinine 1.0 Procalcitonin level is 0.11 09/07/2022 Patient is resting in bed. Awake alert oriented x3. Currently on room air. No complaints of chest pain or shortness of breath. No nausea vomiting abdominal diarrhea. No cough or sputum production. Patient is on antibiotics for left- sided pneumonia. No fever no chills. Currently back on room air. No headache or dizziness lightheadedness. PT OT was consulted and possible discharge to rehab. Laboratory data showed WBC 19.6, hemoglobin 14.7 and platelets 411 Sodium 134 potassium 5.4 chloride 100 bicarb is 25.5 BUN 37.8 and creatinine 1.0 Pulmonary is on board. 09/08/2022 Patient is currently resting in the bed. Awake alert and oriented x3. No cough or sputum production. No wheezing noted on exam. Breathing status is much better. Currently on room air. Currently on dexamethasone and antibiotics in the form of cefepime and clindamycin. Laboratory data reviewed. Chest x-ray for tomorrow was ordered. Pulmonary is on board. Patient had an episode of coughing spell while eating with possible aspiration. Currently denies any symptoms otherwise. 09/09/2022 Patient is resting in the bed. Awake alert and oriented x3. No complaints of chest pain or shortness of breath. No nausea vomiting abdominal pain or diarrhea. Tolerating oral diet. No cough or sputum production. Patient completed 10 days of dexamethasone course and will be discontinued. Patient is being current cefepime and clindamycin. ID is on board.. Afebrile. No headache or dizziness or lightheadedness. PT OT consult and possible discharge to rehab. Patient still having significant leukocytosis. Chest x-ray today showed worsening multifocal airspace opacities. 09/10/2022 Patient is currently sitting in a chair comfortably. Complains of generalized weakness. Breathing status is about the same. No acute distress. No compressive chest pain. Patient has been afebrile. Continued on antibiotics the form of clindamycin and cefepime. Also on breathing treatments and Symbicort and anticoagulation with the liquids. Laboratory data showed WBC 24.0 hemoglobin 13.9 and platelets 376 Sodium 132 potassium 4.8 chloride 99BUN 38.9 and creatinine 1.0 Pulmonary and ID is on board. 09/11/2022 Patient is currently sitting with it. Awake alert and oriented 3.afebrile. Currently on room air. No nausea vomiting or abdominal pain or diarrhea. Tolerating oral intake slowly. No cough or sputum production. Remains on antibiotics in the form of cefepime and clindamycin. PTOT consult.does have generalized weakness. laboratory data showed WBC count improving to18.3 today. Hemoglobin 14.1 and platelets 311 Sodium 134 potassium 5.1 chloride 100 bicarb is 26.4 BUN 30.3 and creatinine 1.0 09/12/2022 Patient is currently sitting in the chair. Awake alert and oriented 3. Feels week otherwise. No complaints of chest pain or worsening shortness of breath. Patient is currently on room air. No nausea vomiting or abdominal pain. Tolerating oral diet slowly. No headache or dizziness or leg weakness. No cough or sputum production. Laboratory data showed sodium 1:30 potassium 4.9 chloride 101 bicarb is 24.1 BUN 24.7 and creatinine 0.9 Leukocytosis was trending down yesterday. Continue with cefepime and clindamycin as per ID recommendations and anticipate discharged to rehab in the next 24-5 hours. Current medications reviewed. Objective - Vital Signs Vital signs: Vital Signs Temp 98.0 F 09/12/22 07:22 Pulse 79 09/12/22 07:22 Resp 17 09/12/22 07:22 BP 152/89 09/12/22 07:22 Pulse Ox 94 L 09/12/22 09:02 FiO2 Intake & Output 09/11/22 09/12/22 09/12/22 18:59 06:59 18:59 Intake Total 480 Output Total 550 500 Balance -70 -500 Intake: Oral 480 Output: Urine 550 500 Other: Voiding Method Diaper Diaper Diaper External Catheter External Catheter External Catheter # Bowel Movements 2 - Exam - Exam GENERAL: The patient is alert and oriented x3, not in any acute distress. Well developed, well nourished. HEENT: Pupils are round and equally reacting to light. EOMI. No scleral icterus. No conjunctival pallor. Normocephalic, atraumatic. No pharyngeal erythema. No thyromegaly. CARDIOVASCULAR: S1 and S2 present. No murmurs, rubs, or gallops. -PULMONARY: Chest is clear to auscultation, no wheezing or crackles. tachypnea with left side crepitation ABDOMEN: Soft, nontender, nondistended, normoactive bowel sounds. No palpable organomegaly. MUSCULOSKELETAL: No joint swelling or deformity. EXTREMITIES: No cyanosis, clubbing, or pedal edema. NEUROLOGICAL: Gross neurological examination did not reveal any focal deficits. SKIN: No rashes. no petechiae. - Labs CBC & Chem 7: 09/13/22 05:56 09/13/22 05:56 Labs: Abnormal Lab Results - Last 24 Hours (Table) 09/12/22 09/12/22 Range/Units 05:39 05:39 Anion Gap 9.90 L (10.00-18.00) mmol/L BUN/Creatinine Ratio 27.44 H (12.00-20.00) Ratio AST 13 L (14-35) U/L C-Reactive Protein 6.60 H (0.00-0.80) mg/dL Total Protein 5.5 L (6.2-8.2) g/dL Albumin 3.2 L (3.8-4.9) g/dL Albumin/Globulin Ratio 1.39 L (1.60-3.17) g/dL Procalcitonin 0.21 H (0.02-0.09) ng/mL Assessment and Plan Assessment: Acute Left sided pneumonia ./Multifocal pneumonia. Improving clinically. Acute COVID-19 pneumonia-patient has not been vaccinated. Elevated inflammatory markers Acute hypoxic respiratory failure requiring oxygen at 2 L via nasal cannula. titrtae down to RA Generalized weakness and falls at home. Chronic atrial fibrillation/flutter on anticoagulation with Eliquis. Coronary disease history of stent placement GERD Hearing disorder/deafness Hypertension Hyperlipidemia Osteoarthritis Peripheral vascular disease with bilateral occluded SFA and bilateral popliteal arteries. History of gout Plan: Patient was titrated down to room air. Chest x-ray showing multifocal pneumonia.. Repeat chest x-ray tomorrow. Was given antibiotics cefepime and clindamycin for gram neg bacteria and covid pna. Infectious and pulmonary team on the case Due to hypoxia patient was started on dexamethasone 6 mg daily and continue with duo nebs and Symbicort. completed dexamethasone for 10 days. DCed dexamethasone. Continue supportive care with multivitamins and GI prophylaxis. PTOT dvt px : eliquis gi px: ppi prognosis is guarded Time with Patient: Greater than 30
--- NOTE | 2022-09-13 11:40 | P.DS ---
Providers Date of admission: 08/28/22 18:11 Expected date of discharge: 09/13/22 Attending physician: Brittany Oliveira Consults: 08/29/22 23:11 Consult Physician Routine Consulting Provider: Emiliano Gaffney Consult Reason/Comments: COVID Pneumonia Do you want consulting provider notified?: Yes, Notify in am 08/30/22 14:53 Consult Physician Routine Consulting Provider: Isaac Thomas Consult Reason/Comments: evaluate for inpatient rehab Do you want consulting provider notified?: Yes 09/04/22 09:23 Consult Physician Urgent Consulting Provider: Moisés Malagon Consult Reason/Comments: pna, Bacteremia Do you want consulting provider notified?: Yes Primary care physician: Joanne Bergman Hospital Course: Discharge diagnosis Acute Left sided pneumonia ./Multifocal pneumonia. CT chest showed cavitary infiltrate in the left lower lobe and large area of consolidation. Possible aspiration versus nerve and abscess. Improving clinically. Complete antibiotic course. Acute COVID-19 pneumonia-patient has not been vaccinated. Elevated inflammatory markers Acute hypoxic respiratory failure requiring oxygen at 2 L via nasal cannula. titrtae down to RA Generalized weakness and falls at home. Chronic atrial fibrillation/flutter on anticoagulation with Eliquis. Coronary disease history of stent placement GERD Hearing disorder/deafness Hypertension Hyperlipidemia Osteoarthritis Peripheral vascular disease with bilateral occluded SFA and bilateral popliteal arteries. History of gout Hospital course 81-year-old male with a known history of atrial flutter, coronary artery disease with history of stent placement, hearing disorder/deafness, hypertension, hyperlipidemia, cellulitis, peripheral vascular disease and prior history of smoking presents to ER with complaints of generalized weakness and chills and shortness of breath. Patient was diagnosed with COVID-19 infection at outside hospital. Plan was to discharge him to correction but given COVID-19 positive status it was felt frequently discharged home. Patient has been having generalized weakness and falls at home. Patient has decreased oral intake.. Patient does have nausea. No chills or vomiting. No diarrhea. On admission patient was tachycardic and saturating at 96% on 2 L of oxygen via nasal cannula. Chest x-ray showed there is a left upper lobe and left lower lobe pneumonia which is mostly new compared to old exam. No heart failure seen. Laboratory data showed WBC 18.4 hemoglobin 15.8 and platelets 242 Sodium 136 potassium 3.9 chloride 100 bicarb is 24 BUN 19 and creatinine 0.92 and blood sugar is 125 Liver enzymes are not elevated. LDH 336 and CRP 21.8 troponin 0.031 and procalcitonin level is 0.19. Urinalysis is negative for infection COVID-19 PCR detected. 09/01/2022 Patient is seen and evaluated in follow-up on the regular medical floor. He is awake and alert in no acute distress. Maintaining good O2 saturations in the 90s on 2 L/m per nasal cannula. Afebrile. He is continued on Symbicort, albuterol, Decadron and vitamin supplements. Anticoagulated with Eliquis. Remains on antibiotics in the form of ceftriaxone. Follow-up chest x-ray in a.m. Pulmonary on board and recommending to continue with ceftriaxone; patient awaits placement to subacute rehab 09/02/2022 Patient is seen and evaluated and discussed with nursing staff; history of fall with laceration back of head with albert in place; patient does have occipital hematoma; plan is to take the albert out and wound care consult He is currently on 2 L. He's not receiving any IV fluids. The patient does complain about his cough. I had some Tessalon Perles, 200 mg, 3 times a day. He denies any significant shortness of breath. He is not producing any phlegm when he coughs. He denies any fever or chills. He denies any chest pain or chest discomfort. White count 24.3, hemoglobin 13.6, hematocrit 41.9, and platelet count 291,000. Blood cultures are positive for staph hominis. Chest x-ray is showing some patchy infiltrates in the left lung, which could be pneumonia and/or atelectasis. He continues on an albuterol inhaler, vitamin C, vitamin D3, and zinc, Symbicort, Decadron, and Rocephin. Discharge planning in progress 09/03/2022 pt is still tachypnic and with cough and phlegm , little amount, no chest pain he is awake and alert and knows he is in the hospital , however he has no insight into his illness, he thought he is in the hospital for his leg pain , i told him about his pna no GI or urinary complaint he has some right leg pain pulmonary team on the case and recommended ct of the chest which is pending now. 09/24/2020, Patient looks severely weak while lying in bed. Minimal tachypnea. Occasional cough. No chest pain and he is saturating 90% on room air. Computed tomography scan showing extensive left side infiltrate with cavitary lesion. Review of possible blood culture for staph hominis. Infectious disease consult is up-to-date and input is appreciated, antibiotics was adjusted to clindamycin and cefepime. He remains on dexamethasone for possible culprit Pulmonary team input is appreciated 09/05/2022 Patient still lethargic but clinically stable, he is improving slowly and gradually Vitals stable, oxygen saturation is acceptable He remains on clindamycin and cefepime and just x-ray from today showing improvement in infiltrate He is also on liquids home dose, multiple vitamins and Plavix. 09/06/2022 Patient is currently lying in the bed. Awake alert and oriented x3. He is lethargic. No complaints of chest pain or worsening shortness of breath. Patient is being continued on antibiotics cefepime and clindamycin for pneumonia. Also on dexamethasone 6 mg daily. Also on duo nebs. Laboratory data showed WBC 19.4, hemoglobin 13.3 and plat elets 398 Sodium 132 potassium 5.3 chloride 198 BUN 35.1 and creatinine 1.0 Procalcitonin level is 0.11 09/07/2022 Patient is resting in bed. Awake alert oriented x3. Currently on room air. No complaints of chest pain or shortness of breath. No nausea vomiting abdominal diarrhea. No cough or sputum production. Patient is on antibiotics for left- sided pneumonia. No fever no chills. Currently back on room air. No headache or dizziness lightheadedness. PT OT was consulted and possible discharge to rehab. Laboratory data showed WBC 19.6, hemoglobin 14.7 and platelets 411 Sodium 134 potassium 5.4 chloride 100 bicarb is 25.5 BUN 37.8 and creatinine 1.0 Pulmonary is on board. 09/08/2022 Patient is currently resting in the bed. Awake alert and oriented x3. No cough or sputum production. No wheezing noted on exam. Breathing status is much better. Currently on room air. Currently on dexamethasone and antibiotics in the form of cefepime and clindamycin. Laboratory data reviewed. Chest x-ray for tomorrow was ordered. Pulmonary is on board. Patient had an episode of coughing spell while eating with possible aspiration. Currently denies any symptoms otherwise. 09/09/2022 Patient is resting in the bed. Awake alert and oriented x3. No complaints of chest pain or shortness of breath. No nausea vomiting abdominal pain or diarrhea. Tolerating oral diet. No cough or sputum production. Patient completed 10 days of dexamethasone course and will be discontinued. Patient is being current cefepime and clindamycin. ID is on board.. Afebrile. No headache or dizziness or lightheadedness. PT OT consult and possible discharge to rehab. Patient still having significant leukocytosis. Chest x-ray today showed worsening multifocal airspace opacities. 09/10/2022 Patient is currently sitting in a chair comfortably. Complains of generalized weakness. Breathing status is about the same. No acute distress. No compressive chest pain. Patient has been afebrile. Continued on antibiotics the form of clindamycin and cefepime. Also on breathing treatments and Symbicort and anticoagulation with the liquids. Laboratory data showed WBC 24.0 hemoglobin 13.9 and platelets 376 Sodium 132 potassium 4.8 chloride 99BUN 38.9 and creatinine 1.0 Pulmonary and ID is on board. 09/11/2022 Patient is currently sitting with it. Awake alert and oriented 3.afebrile. Currently on room air. No nausea vomiting or abdominal pain or diarrhea. Tolerating oral intake slowly. No cough or sputum production. Remains on antibiotics in the form of cefepime and clindamycin. PTOT consult.does have generalized weakness. laboratory data showed WBC count improving to18.3 today. Hemoglobin 14.1 and platelets 311 Sodium 134 potassium 5.1 chloride 100 bicarb is 26.4 BUN 30.3 and creatinine 1.0 09/12/2022 Patient is currently sitting in the chair. Awake alert and oriented 3. Feels week otherwise. No complaints of chest pain or worsening shortness of breath. Patient is currently on room air. No nausea vomiting or abdominal pain. Tolerating oral diet slowly. No headache or dizziness or leg weakness. No cough or sputum production. Laboratory data showed sodium 1:30 potassium 4.9 chloride 101 bicarb is 24.1 BUN 24.7 and creatinine 0.9 Leukocytosis was trending down yesterday. Continue with cefepime and clindamycin as per ID recommendations and anticipate discharged to rehab in the next 24-48 hours. 09/13/2022 Patient is ready leg and alert. Awake alert and oriented 3. Patient does have generalized weakness. No complaints of chest pain or shortness of breath. Currently on room air and saturating at 92%. No complaints of nausea vomiting or abdominal pain or diarrhea. Denied any dysuria or hematuria. No cough or sputum production. Patient is being continued on physical therapy. Repeat chest x-ray was done today. Otherwise patient will be continued on antibiotics in the form of cefepime and clindamycin as per ID recommendations. PICC line was placed yesterday. Patient has been afebrile. He is being discharged to rehab today. - Exam GENERAL: The patient is alert and oriented x3, not in any acute distress. Well developed, well nourished. HEENT: Pupils are round and equally reacting to light. EOMI. No scleral icterus. No conjunctival pallor. Normocephalic, atraumatic. No pharyngeal erythema. No thyromegaly. CARDIOVASCULAR: S1 and S2 present. No murmurs, rubs, or gallops. -PULMONARY: Chest is clear to auscultation, no wheezing or crackles. tachypnea with left side crepitation ABDOMEN: Soft, nontender, nondistended, normoactive bowel sounds. No palpable organomegaly. MUSCULOSKELETAL: No joint swelling or deformity. EXTREMITIES: No cyanosis, clubbing, or pedal edema. NEUROLOGICAL: Gross neurological examination did not reveal any focal deficits. SKIN: No rashes. no petechiae. Vital Signs 09/13/22 07:42 Temperature 98.1 F Pulse Rate [ 51 L Pulse Oximetery ] Respiratory 16 Rate Blood Pressure 134/75 [Left Arm] O2 Sat by Pulse 92 L Oximetry Total time taken greater than 35 minutes including 18 minutes for counseling and coordination of care. Patient Condition at Discharge: Stable Plan - Discharge Summary New Discharge Prescriptions: New metroNIDAZOLE [Flagyl] 500 mg PO TID #42 tab Cefepime [Maxipime] 2 gm IVPB Q8H #42 each Continue Digoxin [Lanoxin] 125 mcg PO DAILY Budesonide/Formoterol Fumarate [Symbicort 160-4.5 Mcg Inhaler] 2 puff INHALATION RT-BID Atorvastatin [Lipitor] 20 mg PO DAILY Apixaban [Eliquis] 2.5 mg PO BID Clopidogrel [Plavix] 75 mg PO DAILY #30 tab Acetaminophen Tab [Tylenol] 650 mg PO Q4HR PRN tab PRN Reason: Fever And/ Or Pain methocarbamoL [Methocarbamol] 750 mg PO TID PRN PRN Reason: Muscle Pain traMADol HCL 50 mg PO QID PRN PRN Reason: Pain Albuterol Nebulized [Ventolin Nebulized] 2.5 mg INHALATION RT-Q6H PRN PRN Reason: Shortness Of Breath HYDROcodone/APAP 5-325MG [[place] 5-325] 1 tab PO QID PRN PRN Reason: Pain Furosemide [Lasix] 20 mg PO DAILY Discontinued Ibuprofen [Motrin Ib] 600 mg PO TID PRN PRN Reason: Pain Or Fever > 100.5 Discharge Medication List Atorvastatin [Lipitor] 20 mg PO DAILY 10/17/18 [History] Budesonide/Formoterol Fumarate [Symbicort 160-4.5 Mcg Inhaler] 2 puff INHALATION RT-BID 10/17/18 [History] Digoxin [Lanoxin] 125 mcg PO DAILY 10/17/18 [History] Apixaban [Eliquis] 2.5 mg PO BID 06/05/20 [History] Clopidogrel [Plavix] 75 mg PO DAILY #30 tab 06/09/20 [Rx] Acetaminophen Tab [Tylenol] 650 mg PO Q4HR PRN tab 08/02/20 [Rx] Albuterol Nebulized [Ventolin Nebulized] 2.5 mg INHALATION RT-Q6H PRN 08/28/22 [History] Furosemide [Lasix] 20 mg PO DAILY 08/28/22 [History] HYDROcodone/APAP 5-325MG [[place] 5-325] 1 tab PO QID PRN 08/28/22 [History] methocarbamoL [Methocarbamol] 750 mg PO TID PRN 08/28/22 [History] traMADol HCL 50 mg PO QID PRN 08/28/22 [History] Cefepime [Maxipime] 2 gm IVPB Q8H #42 each 09/12/22 [Rx] metroNIDAZOLE [Flagyl] 500 mg PO TID #42 tab 09/12/22 [Rx] Follow up Appointment(s)/Referral(s): Joanne Bergman DO [Primary Care Provider] - 09/17/22 1:20 pm Emiliano Gaffney DO [Doctor of Osteopathic Medicine] - 10/05/22 1:00 pm Moisés Malagon MD [STAFF PHYSICIAN] - 10/01/22 2:00 pm Discharge Disposition: TRANSFER TO SNF/ECF
--- NOTE | 2022-09-13 12:19 | XR ---
EXAMINATION TYPE: XR chest 1V portable DATE OF EXAM: 09/13/2022 COMPARISON: 09/09/2022 INDICATION: Pneumonia cough TECHNIQUE: Single frontal view of the chest is obtained. FINDINGS: The heart size is normal. The pulmonary vasculature is normal. Mild left upper lobe infiltrate remains present. Some left lower lobe infiltrate is not excluded. Nod ule at the left base appears chronic PICC line entering on the left with tip in superior vena cava stable in position IMPRESSION: 1. Left upper lobe infiltrate slightly diminished from comparison.
--- NOTE | 2022-09-13 13:18 | P.PN ---
Subjective Progress Note Date: 09/13/22 81-year-old male, who presents to the emergency department, on August 28, complaining of generalized weakness, chills, and fatigue. The patient was tested for coronavirus, by nasal swab, and was positive. Patient was to be discharged to the senior living, but given the positive nasal swab for coronaviru s, the patient was admitted to the hospital. We were consulted because of the patient's shortness of breath, and cough. Currently, he's on 2 L of oxygen. He's not receiving any IV fluids. He is not manifesting any overt signs of respiratory distress. He has a history of atrial flutter, CAD, heart failure, COPD, GERD, hyperlipidemia, hypertension, and osteoarthritis, among other things. White count 23, hemoglobin 14.4, hematocrit 44.5, platelet count 254,000. Sodium 138, potassium 4.7, chlorides 101, CO2 26, anion gap 11, BUN 24, creatinine 1.1. The patient's chest x-ray shows evidence of left-sided pneumonia. The patient's pro-calcitonin level is 0.19. The patient is seen today 08/31/2022 in follow-up on the regular medical floor. He is currently sitting up at the bedside. Awake and alert in no acute distress. He is maintaining O2 saturations in the 90s on room air. No IV f luids. White count 20.8. Hemoglobin 14.1. Sodium 134. Potassium 4.2. BUN 26. Creatinine 0.88. Glucose 143. He is continued on vitamin supplements, anticoagulated with Eliquis, remains on Decadron. Blood culture with coag- negative staph. Currently on ceftriaxone. The patient is seen today 09/01/2022 in follow-up on the regular medical floor. He is awake and alert in no acute distress. Maintaining good O2 saturations in the 90s on 2 L/m per nasal cannula. Afebrile. He is continued on Symbicort, albuterol, Decadron and vitamin supplements. Anticoagulated with Eliquis. Remains on antibiotics in the form of ceftriaxone. Follow-up chest x-ray in a.m. The patient is seen today 09/10/2022 in follow-up on the regular medical floor. He is currently resting comfortably in bed. Awake and alert in no acute distress. He is maintaining O2 saturations in the 90s on room air. Follow up blood cultures reveal no growth. Follow-up chest x-ray continues to show multifocal airspace disease more so on the left. He is continued on cefepime and clindamycin. Continue on Symbicort, albuterol. Anticoagulated with Eliquis. Remains on vitamin supplements. Patient is seen today 09/11/2022 in follow-up on the regular medical floor. He is currently sitting up in a chair at bedside. Awake and alert in no acute distress. He is maintaining good O2 saturations in the 90s on room air. He's afebrile. Hemodynamically stable. Follow-up blood cultures revealed no growth. White count 18.3. Hematoma 14.1. Sodium 134. Potassium 5.1. BUN 30. Creatinine 1.0. Coronavirus by PCR still detected. He is continued on Ventolin, Symbicort. Antibiotics in the form of cefepime and clindamycin. Continued on vitamin supplements. Completed Decadron. The patient is seen today 09/12/2022 and a follow-up on the regular medical floor. He is currently sitting up in a chair at the bedside. Awake and alert in no acute distress. He is maintaining O2 saturations in the 90s on room air. He's been afebrile. Hemodynamically stable. PICC line was placed today. Initial blood cultures positive for staph hominis. Follow-up blood cultures revealed no growth. Sodium 135. Potassium 4.9. BUN 24. Creatinine 0.9. Pro- calcitonin 0.21. He remains on cefepime and clindamycin per ID services. Patient is seen today 09/13/2022 in follow-up on the regular medical floor. He is awake and alert in no acute distress. Sitting up in a chair at the bedside. Maintaining good O2 saturations in the 90s on room air. Asked x-ray is showing improvement in the left upper lobe infiltrate. The plan is for 2 weeks of cefepime therapy. PICC line has been placed. He remains on full liquids for DVT prophylaxis. Remains on vitamin supplements. White count 15.7. Hemoglobin 14.5. Sodium 133. Potassium 4.9. BUN 20. Creatinine 0.9. Most recent pro- calcitonin 0.21. Objective - Vital Signs Vital signs: Vital Signs Temp 98.1 F 09/13/22 07:42 Pulse 51 L 09/13/22 07:42 Resp 16 09/13/22 07:42 BP 134/75 09/13/22 07:42 Pulse Ox 92 L 09/13/22 07:42 FiO2 Intake & Output 09/12/22 09/13/22 09/13/22 18:59 06:59 18:59 Output Total 700 400 Balance -700 -400 Weight 62.5 kg Output: Urine 700 400 Other: Voiding Method Diaper Diaper External Catheter External Catheter External Catheter # Voids 4 3 # Bowel Movements 1 1 - Exam GENERAL EXAM: Alert, 81-year-old male patient, in a chair, on room air, comfortable in no apparent distress. HEAD: Normocephalic. EYES: Normal reaction of pupils, equal size. NOSE: Clear with pink turbinates. THROAT: No erythema or exudates. NECK: No masses, no JVD. CHEST: No chest wall deformity. LUNGS: Equal air entry with scattered rhonchi left lung. CVS: S1 and S2 normal with no audible murmur, regular rhythm. ABDOMEN: No hepatosplenomegaly, normal bowel sounds, no guarding or rigidity. SPINE: No scoliosis or deformity SKIN: No rashes CENTRAL NERVOUS SYSTEM: No focal deficits, tone is normal in all 4 extremities. EXTREMITIES: There is no peripheral edema. No clubbing, no cyanosis. Peripheral pulses are intact. - Labs CBC & Chem 7: 09/13/22 05:56 09/13/22 05:56 Labs: Abnormal Lab Results - Last 24 Hours (Table) 09/13/22 09/13/22 Range/Units 05:56 05:56 WBC 15.74 H (4.50-10.00) X 10*3/uL MCHC 31.3 L (32.0-37.0) g/dL RDW 16.5 H (11.5-14.5) % Immature Gran # 0.30 H (0.00-0.04) X 10*3/uL Neutrophils # 12.21 H (1.80-7.70) X 10*3/uL Monocytes # 1.76 H (0.20-1.00) X 10*3/uL Sodium 133 L (135-145) mmol/L Anion Gap 8.50 L (10.00-18.00) mmol/L BUN/Creatinine Ratio 23.00 H (12.00-20.00) Ratio Assessment and Plan Assessment: Acute hypoxemic respiratory failure secondary to left-sided pneumonia. Improved and on room air. Treated with cefepime and clindamycin History of coronavirus infection, and possible coronavirus associated pneumonia. History of coronary artery disease, with previous stenting. History of atrial flutter. Anticoagulated with Eliquis History of CHF. History of COPD, from previous tobacco use. History of hyperlipidemia. History of hypertension. History of deafness. History of GERD. History of gout. Multiple other medical problems and comorbidities. Plan: The patient was seen and evaluated Chest x-ray, medications and labs reviewed PICC line placed Plan is for 2 weeks of cefepime per ID services Cleared for discharge to [facility] Recommend close follow-up in our office in one to two-weeks If no change in chest x-ray consider malignancy, would do outpatient workup at that time I have personally seen and examined the patient, performed the documentation and the assessment and plan as written. Number of minutes spent on the visit: 10.
[2022-09-13] MEDS: CLINDAMYCIN 600 MG in DEXTROSE 5% IN WATER 50 ML IVPB SCH ×2 (13:50)
== END 2022-09-13 14:30 | DRG 871 ==
LOC: EC 13:30 → 4SSUR 18:11
PROVIDERS: ADMIT Internal Medicine; ATTEND Internal Medicine
PROC: 3E0333Z Introduction of Anti-inflammatory into Peripheral Vein, Percutaneous Approach (ICD-10-PCS; 2022-08-30)
PROC: 02HV33Z Insertion of Infusion Device into Superior Vena Cava, Percutaneous Approach (ICD-10-PCS; principal; 2022-09-12 08:30)
DX: A41.89 Other specified sepsis (principal); J12.82 Pneumonia due to coronavirus disease 2019; J96.01 Acute respiratory failure with hypoxia; U07.1 COVID-19; J44.0 Chronic obstructive pulmonary disease with (acute) lower respiratory infection; I48.92 Unspecified atrial flutter; I48.20 Chronic atrial fibrillation, unspecified; I11.0 Hypertensive heart disease with heart failure; I70.203 Unspecified atherosclerosis of native arteries of extremities, bilateral legs; I50.9 Heart failure, unspecified; E78.5 Hyperlipidemia, unspecified; I25.10 Atherosclerotic heart disease of native coronary artery without angina pectoris; H91.90 Unspecified hearing loss, unspecified ear; I45.10 Unspecified right bundle-branch block; M19.90 Unspecified osteoarthritis, unspecified site; K21.9 Gastro-esophageal reflux disease without esophagitis; R53.81 Other malaise; L98.492 Non-pressure chronic ulcer of skin of other sites with fat layer exposed; R26.9 Unspecified abnormalities of gait and mobility; S00.03XA Contusion of scalp, initial encounter; Z95.5 Presence of coronary angioplasty implant and graft; Z87.891 Personal history of nicotine dependence; Z79.899 Other long term (current) drug therapy; Z79.51 Long term (current) use of inhaled steroids; Z79.02 Long term (current) use of antithrombotics/antiplatelets; Z79.01 Long term (current) use of anticoagulants; Z88.0 Allergy status to penicillin; Z91.041 Radiographic dye allergy status; Z86.14 Personal history of Methicillin resistant Staphylococcus aureus infection; Z28.310 Unvaccinated for COVID-19; Z86.19 Personal history of other infectious and parasitic diseases; Z91.81 History of falling; Z87.39 Personal history of other diseases of the musculoskeletal system and connective tissue
CPT/HCPCS: 36415; 36573; 70450; 71045; 71046; 71250; 80048; 80053; 81001; 83615; 84145; 84484; 85025; 85610; 85730; 86140; 87040; 87077; 87186; 87635; 93005; 94640; 94760; 99285

== ENCOUNTER 2022-09-23 00:19 | Inpatient (IN) | payer MEDICARE, BC ==
[2022-09-23 00:27] LABS: Glucose,Whole Blood 113 mg/dL (70-110)
[2022-09-23] MEDS ORDERED: ETOMIDATE 2 MG/ML 10 ML VIAL IVP STA (00:30)
[2022-09-23] MEDS ORDERED: VANCOMYCIN IV PER PHARMACY 1 EACH MISC MISCELLANE PRN (00:35)
[2022-09-23] MEDS ORDERED: ROCURONIUM 10 MG/ML (5 ML VIAL) IV STA (00:39)
[2022-09-23] MEDS ORDERED: IPRATROPIUM-ALBUTEROL 3 ML NEB INHALATION STA (00:42)
[2022-09-23] MEDS ORDERED: VANCOMYCIN 1,250 MG in SODIUM CHLORIDE 0.9% 250 ML IVPB ONE (00:45)
[2022-09-23] MEDS ORDERED: SODIUM CHLORIDE 0.9% 1,000 ML IV STA ×2 (01:03→04:16)
[2022-09-23] MEDS ORDERED: SODIUM CHLORIDE 0.9% 500 ML 500 ML IV STA (01:03)
[2022-09-23 01:05] LABS: ABG Base Excess -2.8 mmol/L; ABG HCO3 22 mmol/L (21-25); ABG Oxygen Saturation 99.5 % (94-97); ABG PCO2 36 mmHg (35-45); ABG PH 7.39 (7.35-7.45); ABG PO2 210 mmHg (83-108); ABG TCO2 23 mmol/L (19-24); Allen Test Performed? Yes
[2022-09-23 01:21] LABS: HCT 45.8 % (39.0-53.0); HGB 15.4 gm/dL (13.0-17.5); MCH 31.1 pg (25.0-35.0); MCHC 33.6 g/dL (31.0-37.0); MCV 92.4 fL (80.0-100.0); Mean Platelet Volume 8.3; RBC 4.96 m/uL (4.30-5.90); RDW 14.3 % (11.5-15.5); WBC 5.7 k/uL (3.8-10.6)
--- NOTE | 2022-09-23 01:22 | XR ---
EXAMINATION TYPE: XR chest 1V portable DATE OF EXAM: 09/23/2022 COMPARISON: 09/13/2022 HISTORY: Respiratory failure. TECHNIQUE: Single view FINDINGS: The endotracheal tube is 3 cm from the roberth. There are chest leads. There is left-sided c entral venous catheter with tip in the superior vena cava. There is some patchy infiltrate in the lef t upper lobe and left lower lobe. The right lung is fairly clear. There is nasogastric tube and the tip appears to be overlying the lower esophagus. IMPRESSION: Nasogastric tube is not in the stomach. There is left-sided pulmonary infiltrates not significantly different than last exam. No heart failur e.
[2022-09-23 01:23] LABS: ALT 42 U/L (4-49); AST 32 U/L (17-59); African American GFR (CKD) >90 (>60 ml/min/1.73 sqM); Alkaline Phosphatase 123 U/L (38-126); Anion Gap 5 mmol/L; Blood Urea Nitrogen 20 mg/dL (9-20); Calcium 9.6 mg/dL (8.4-10.2); Carbon Dioxide 23 mmol/L (22-30); Chloride 107 mmol/L (98-107); Digoxin 0.6 ng/mL; Glucose 122 mg/dL (74-99); Magnesium 1.8 mg/dL (1.6-2.3); Non-African American GFR(CKD) 86 (>60 ml/min/1.73 sqM); Potassium 3.6 mmol/L (3.5-5.1); Sodium 135 mmol/L (137-145); Total Bilirubin 0.4 mg/dL (0.2-1.3); Total Protein 6.1 g/dL (6.3-8.2)
[2022-09-23 01:28] LABS: Platelet Count 135 k/uL (150-450)
[2022-09-23 01:34] LABS: INR 1.2 (<1.2); Prothrombin Time 12.6 sec (9.0-12.0)
[2022-09-23 01:35] LABS: Partial Thromboplastin Time 29.4 sec (22.0-30.0)
--- NOTE | 2022-09-23 01:42 | CT ---
EXAMINATION TYPE: CT brain wo con DATE OF EXAM: 09/23/2022 COMPARISON: 08/30/2022 HISTORY: ams CT DLP: 1196.4 mGycm Automated exposure control for dose reduction was used. Images obtained of the brain without contrast. There is cerebral cortical atrophy. There is patchy hypodensity in the periventricular white matter. There is no mass effect or midline shift. No sign of intracranial hemorrhage. Calvarium is intact. IMPRESSION: Cerebral atrophy and chronic small vessel ischemia. No acute intracranial abnormality. No significant change.
[2022-09-23] MEDS ORDERED: diphenhydrAMINE 50 MG/ML 1 ML VIAL IVP STA (01:54)
[2022-09-23] MEDS ORDERED: methylPREDNISolone SOD SUCCI 125 MG/2 ML VIAL IV STA (01:54)
[2022-09-23] MEDS ORDERED: RX INFO: IV CONTRAST WAS GIVEN 1 EACH MISC MISCELLANE PRN (01:54)
[2022-09-23] MEDS ORDERED: FAMOTIDINE 20 MG/2 ML VIAL IV STA (01:54)
--- NOTE | 2022-09-23 02:11 | ED ---
General Adult HPI - General Chief complaint: Shortness of Breath Stated complaint: Low O2, Unresponsive Time Seen by Provider: 09/23/22 00:20 Source: EMS, RN notes reviewed, old records reviewed Limitations: physical limitation - History of Present Illness Initial comments: Patient is an 81-year-old male with past medical history remarkable for atrial fibrillation/atrial flutter on pelvic rest, CAD, heart failure, COPD, acid reflux, hypertension who presents emergency Department for hypoxia as well as unresponsiveness. Patient has been at a nursing facility being treated o utpatient for pneumonia via IV antibiotics in a PICC line. Patient was seen by family members earlier today and was doing well. Nursing staff said that approximately 1 hour prior to arrival he became hypoxic. The nursing facility put him on 5 L via nonrebreather mask with no improvement of hypoxia. Saturations per staff were in the 50%'s. Unknown how long prior to them evaluating the patient they were like this. They called EMS to start the patient on CPAP. He was slightly wheezy and they did provide one breathing treatment with IV steroids. Patient was continued on CPAP until arrival here in the department. He remains unresponsive and unable to provide history. - Related Data Home Medications Medication Instructions Recorded Confirmed Atorvastatin [Lipitor] 20 mg PO DAILY 10/17/18 08/28/22 Budesonide/Formoterol Fumarate 2 puff INHALATION RT-BID 10/17/18 08/28/22 [Symbicort 160-4.5 Mcg Inhaler] Digoxin [Lanoxin] 125 mcg PO DAILY 10/17/18 08/28/22 Apixaban [Eliquis] 2.5 mg PO BID 06/05/20 08/28/22 Albuterol Nebulized [Ventolin 2.5 mg INHALATION RT-Q6H PRN 08/28/22 08/28/22 Nebulized] Furosemide [Lasix] 20 mg PO DAILY 08/28/22 08/28/22 methocarbamoL [Methocarbamol] 750 mg PO TID PRN 08/28/22 08/28/22 Previous Rx's Medication Instructions Recorded Clopidogrel [Plavix] 75 mg PO DAILY #30 tab 06/09/20 Acetaminophen Tab [Tylenol] 650 mg PO Q4HR PRN tab 08/02/20 Cefepime [Maxipime] 2 gm IVPB Q8H #42 each 09/12/22 metroNIDAZOLE [Flagyl] 500 mg PO TID #42 tab 09/12/22 HYDROcodone/APAP 5-325MG [Barry 1 tab PO QID PRN 3 Days #12 tab 09/13/22 5-325] Allergies Allergy/AdvReac Type Severity Reaction Status Date / Time Penicillins Allergy Anaphylaxis Verified 08/28/22 17:46 Iodinated Contrast Media AdvReac Diarrhea, Verified 08/28/22 17:46 [Iodinated Contrast- Oral RASH and IV Dye] Review of Systems ROS Statement: Those systems with pertinent positive or pertinent negative responses have been documented in the HPI. ROS Other: All systems not noted in ROS Statement are negative. Past Medical History Past Medical History: Atrial Flutter, Coronary Artery Disease (CAD), Heart Failure, COPD, GERD/Reflux, Hearing Disorder / Deafness, Hyperlipidemia, Hypertension, Osteoarthritis (OA), Renal Disease, Vascular Disorder Additional Past Medical History / Comment(s): hx. gout, hx. colon polyps, circulation problems in legs, slight decreased kidney function, shingles History of Any Multi-Drug Resistant Organisms: MRSA Date of last positivie culture/infection: 02/14/22 MDRO Source:: Right Thigh Past Surgical History: Cholecystectomy, Heart Catheterization, Heart Catheterization With Stent Additional Past Surgical History / Comment(s): right bone graft to collar bone Past Anesthesia/Blood Transfusion Reactions: No Reported Reaction Date of Last Stent Placement:: 05/2020 Past Psychological History: No Psychological Hx Reported Smoking Status: Former smoker Past Alcohol Use History: None Reported Past Drug Use History: None Reported - Past Family History Mother Family Medical History: No Reported History General Exam - General Exam Comments Initial Comments: General: Unresponsive HEAD: Normal with no signs of head trauma. EYES: Pupils are 1-2 mm and equal bilaterally. ENT: Hearing grossly intact, normal oropharynx. RESPIRATORY: Very mild end expiratory wheezing bilaterally. Some rhonchi in the left lung field. Increased work of breathing. Hypoxic on CPAP. C/V: Patient is tachycardic. Irregular rate and rhythm. S1 and S2 auscultated. Peripheral pulses 2+ intact throughout. No significant pitting edema. ABD: Abd is soft, nontender, nondistended EXT: No obvious deformity. SKIN: No rashes or lesions observed on exposed skin. NEURO: Unresponsive. GCS of 6, withdraws from pain. Limitations: physical limitation Course Vital Signs 09/23/22 09/23/22 09/23/22 00:21 00:41 00:43 Temperature Pulse Rate 122 H Respiratory 22 Rate Blood Pressure 90/63 O2 Sat by Pulse 84 L Oximetry Fraction of 100 100 Inspired Oxygen (FIO2) 09/23/22 09/23/22 09/23/22 01:06 01:10 01:20 Temperature Pulse Rate 114 H 118 H Respiratory 20 19 Rate Blood Pressure 113/95 113/95 102/89 O2 Sat by Pulse 98 97 Oximetry Fraction of 60 Inspired Oxygen (FIO2) 09/23/22 09/23/22 09/23/22 01:30 01:40 01:45 Temperature Pulse Rate 117 H 113 H Respiratory 20 Rate Blood Pressure 102/89 85/66 O2 Sat by Pulse 94 L Oximetry Fraction of Inspired Oxygen (FIO2) 09/23/22 09/23/22 09/23/22 01:50 02:00 02:10 Temperature Pulse Rate 110 H 104 H 111 H Respiratory 20 20 20 Rate Blood Pressure 85/66 85/66 85/66 O2 Sat by Pulse 96 96 96 Oximetry Fraction of Inspired Oxygen (FIO2) 09/23/22 09/23/22 09/23/22 02:20 02:30 02:40 Temperature Pulse Rate 112 H 116 H Respiratory 20 20 Rate Blood Pressure 122/77 122/77 121/86 O2 Sat by Pulse 92 L 91 L Oximetry Fraction of Inspired Oxygen (FIO2) 09/23/22 09/23/22 09/23/22 02:50 03:10 03:20 Temperature 96.3 F L Pulse Rate 101 H 112 H Respiratory 26 H 20 Rate Blood Pressure 117/79 109/91 O2 Sat by Pulse 98 97 Oximetry Fraction of Inspired Oxygen (FIO2) 09/23/22 09/23/22 09/23/22 03:30 03:40 03:50 Temperature Pulse Rate 116 H 117 H 115 H Respiratory 20 20 20 Rate Blood Pressure 109/91 98/81 107/83 O2 Sat by Pulse 97 97 96 Oximetry Fraction of Inspired Oxygen (FIO2) 09/23/22 09/23/22 09/23/22 04:00 04:10 04:20 Temperature Pulse Rate 115 H 114 H 120 H Respiratory 20 19 20 Rate Blood Pressure 107/83 111/82 116/95 O2 Sat by Pulse 97 94 L 95 Oximetry Fraction of Inspired Oxygen (FIO2) 09/23/22 09/23/2222 04:30 04:40 04:45 Temperature Pulse Rate 101 H 103 H Respiratory 22 22 Rate Blood Pressure 116/95 110/88 O2 Sat by Pulse 96 94 L Oximetry Fraction of 60 Inspired Oxygen (FIO2) 09/23/22 09/23/22 09/23/22 04:50 05:00 05:10 Temperature 96.7 F L Pulse Rate 113 H 113 H 112 H Respiratory 19 22 23 Rate Blood Pressure 105/92 105/92 117/72 O2 Sat by Pulse 95 95 96 Oximetry Fraction of Inspired Oxygen (FIO2) 09/23/22 05:29 Temperature Pulse Rate Respiratory Rate Blood Pressure O2 Sat by Pulse Oximetry Fraction of 50 Inspired Oxygen (FIO2) Procedures - ABG Interpretation Ph: 7.392 PCO2: 36.4 PO2: 210 Bicarbonate: 22.1 Interpretation: normal - Central Line Placement Left Femoral Consent Obtained: emergent situation Patient Placed on Monitor/Pulse Ox: Yes MD Prep: mask, gown, gloves Central Line Prep: Chlorhexidine scrub Local Anesthesia Used: Lidocaine 1% Amount of Anesthesia Used (mls): 3 Ultrasound Used for Placement: Yes Central Line Lumen Inserted: triple Bloods Obtained for Lab: No Central Line Position: good blood return, all ports aspirated, flushed, capped, sutured in place with nylon Dressing Applied: Tegaderm Patient Tolerated Procedure: well Complications: none - Intubation Sedative: Etomidate Mg Given: 15 Paralytic: Rocuronium Mg Given: 80 Laryngoscope: other (glidescope) Size: 4 ET Tube Size: 7.5 Tube Secured Depth (cm): 23 Tube Secured Location: lips Tube Placement Confirmation: visualized tube passing through cords, equal breath sounds bilaterally, confirmation by capnometry Patient Tolerated Procedure: well Intubation Complications: none - Sepsis Sepsis Focused Exam #1 Time Sepsis Criteria Met: 00:40 Sepsis Focused Exam Date: 09/23/22 Sepsis Focused Exam Time: 05:25 Sepsis Focused Exam Complete: Yes Vital Signs & RN Notes Reviewed: Yes Capillary Refill: < 2 Seconds: Fingers, Toes Peripheral Pulses: Normal: Radial (R), Radial (L) Skin Color: Normal for Patient Respiratory Exam: normal lung sounds Cardiovascular Exam: tachycardia, irregular rhythm Medical Decision Making - Medical Decision Making Patient was evaluated in trauma bay 1. I'm concerned for suspected pulmonary e tiology versus infectious process for the patient's current symptoms. Does have a PICC line it appears that he was on IV antibiotics for a prior pneumonia. GCS is 6. He is hypoxic as well as mine be hypotensive. The decision was made to intubate the patient. Patient was mildly hypotensive as well as hypoxic initially upon arrival and attempts are made to resuscitate the patient initially with IV fluids as well as CPAP oxygenation. Intubation was successful with Glidescope and 7.5 ET tube. Hypotension did somewhat persist following intubation and therefore left femoral central line was placed at that time as well. Norepinephrine drip was ordered but was never initiated as the patient did not require it as maps remained above 65. Patient did meet sepsis criteria at this time and empiric antibiotics were started, vancomycin and cefepime. He was on Flagyl and cefepime outpatient. He received a total of 2 L of IV fluids, and we will have gentle maintenance fluids at this time as the patient does have a history of congestive heart failure. Patient was placed on a propofol drip for sedation. He was placed on a vent. Patient was mildly wheezy and was treated with breathing treatments as well as IV steroids. Broad laboratory studies were obtained. CT brain and chest x-ray were also obtained. Patient was hemodynamically stable at this time on sedation, on empiric antibiotics, not requiring vasopressors. Activation is vented. EKG revealed an atrial tachycardia versus atrial fibrillation that is variable but mostly rate controlled. No obvious signs of ischemia. Chest x-ray as interpreted by myself revealed persistent left upper lobe pneumonia seen on prior chest x-rays. ET tube is approximately 3 cm from the roberth. No pneumothorax. Brain CT is interpreted by myself revealed no acute intracranial process. No hemorrhage or midline shift. No significant change from prior. Laboratory studies returned and were remarkable for mild thrombocytopenia of 135. Troponin is indeterminate at 0.019. BNP is within acceptable limits for the patient at 1210. Urinalysis is unremarkable. Patient Covid, flu, RSV negative. Barton catheter is in place. Initial ABG on 100% FiO2 was within acceptable limits. This is reduced under 40%, and pO2 was still within acc eptable limits on repeat ABG. Does not appear to be having CO2 retention. UDS is still pending at this time. At this time, decision was made to obtain a CT chest angiogram to evaluate for PE versus other etiology is no clear reason for his acute hypoxia at the nursing facility. He appears to be having a mild COPD exacerbation but nothing substantial to explain the hypoxic episode and altered mental status and unresponsiveness that he presented with. Chest CT angiogram is interpreted by myself showed no evidence of PE. Remains bilateral patchy pulmonary infiltrates at the lung bases as well as what appears to be a cavitating culture in the left lung mid field which was also seen on the prior CT from last admission. Radiologist today was to consider possible tumor there. CT imaging revealed no obvious findings other than possible pneumonia. Patient has remained hemodynamically stable. I updated family at bedside as well as in the family room multiple times in the patient's status. I answered all questions that they had. They wish for the patient remained full code at this [facility]. We'll continue treatment. I spoke with the ICU attending, Dr. Gaffney who accepted the patient. He was in agreement with the plan. I spoke with the admitting physician, VITA Blas of [facility] who accepted the patient. Patient was therefore admitted to ICU in serious condition. - Lab Data Result diagrams: 09/23/22 00:15 09/23/22 00:15 Lab Results 09/23/22 09/23/22 09/23/22 Range/Units 00:15 00:15 00:15 WBC 5.7 (3.8-10.6) k/uL RBC 4.96 (4.30-5.90) m/uL Hgb 15.4 (13.0-17.5) gm/dL Hct 45.8 (39.0-53.0) % MCV 92.4 (80.0-100.0) fL MCH 31.1 (25.0-35.0) pg MCHC 33.6 (31.0-37.0) g/dL RDW 14.3 (11.5-15.5) % Plt Count 135 L D (150-450) k/uL MPV 8.3 Neutrophils % (Manual) 67 % Band Neuts % (Manual) 6 % Lymphocytes % (Manual) 16 % Monocytes % (Manual) 7 % Eosinophils % (Manual) 4 % Neutrophils # (Manual) 4.10 (1.3-7.7) k/uL Lymphocytes # (Manual) 0.91 L (1.0-4.8) k/uL Monocytes # (Manual) 0.40 (0-1.0) k/uL Eosinophils # (Manual) 0.23 (0-0.7) k/uL Nucleated RBCs 0 (0-0) /100 WBC Manual Slide Review Performed PT 12.6 H (9.0-12.0) sec INR 1.2 H (<1.2) APTT 29.4 (22.0-30.0) sec Sample Site ABG pH (7.35-7.45) ABG pCO2 (35-45) mmHg ABG pO2 (83-108) mmHg ABG HCO3 (21-25) mmol/L ABG Total CO2 (19-24) mmol/L ABG O2 Saturation (94-97) % ABG Base Excess mmol/L Eugene Test FiO2 % Sodium 135 L (137-145) mmol/L Potassium 3.6 (3.5-5.1) mmol/L Chloride 107 (98-107) mmol/L Carbon Dioxide 23 (22-30) mmol/L Anion Gap 5 mmol/L BUN 20 (9-20) mg/dL Creatinine 0.75 (0.66-1.25) mg/dL Est GFR (CKD-EPI)AfAm >90 (>60 ml/min/1.73 sqM) Est GFR (CKD-EPI)NonAf 86 (>60 ml/min/1.73 sqM) Glucose 122 H (74-99) mg/dL POC Glucose (mg/dL) (70-110) mg/dL POC Glu Embedded Processor ID Plasma Lactic Acid Esau (0.7-2.0) mmol/L Calcium 9.6 (8.4-10.2) mg/dL Magnesium 1.8 (1.6-2.3) mg/dL Total Bilirubin 0.4 (0.2-1.3) mg/dL AST 32 (17-59) U/L ALT 42 (4-49) U/L Alkaline Phosphatase 123 (38-126) U/L Troponin I (0.000-0.034) ng/mL NT-Pro-B Natriuret Pep pg/mL Total Protein 6.1 L (6.3-8.2) g/dL Albumin 3.0 L (3.5-5.0) g/dL Digoxin 0.6 ng/mL 09/23/22 09/23/22 09/23/22 Range/Units 00:15 00:15 00:15 WBC (3.8-10.6) k/uL RBC (4.30-5.90) m/uL Hgb (13.0-17.5) gm/dL Hct (39.0-53.0) % MCV (80.0-100.0) fL MCH (25.0-35.0) pg MCHC (31.0-37.0) g/dL RDW (11.5-15.5) % Plt Count (150-450) k/uL MPV Neutrophils % (Manual) % Band Neuts % (Manual) % Lymphocytes % (Manual) % Monocytes % (Manual) % Eosinophils % (Manual) % Neutrophils # (Manual) (1.3-7.7) k/uL Lymphocytes # (Manual) (1.0-4.8) k/uL Monocytes # (Manual) (0-1.0) k/uL Eosinophils # (Manual) (0-0.7) k/uL Nucleated RBCs (0-0) /100 WBC Manual Slide Review PT (9.0-12.0) sec INR (<1.2) APTT (22.0-30.0) sec Sample Site ABG pH (7.35-7.45) ABG pCO2 (35-45) mmHg ABG pO2 (83-108) mmHg ABG HCO3 (21-25) mmol/L ABG Total CO2 (19-24) mmol/L ABG O2 Saturation (94-97) % ABG Base Excess mmol/L Eugene Test FiO2 % Sodium (137-145) mmol/L Potassium (3.5-5.1) mmol/L Chloride (98-107) mmol/L Carbon Dioxide (22-30) mmol/L Anion Gap mmol/L BUN (9-20) mg/dL Creatinine (0.66-1.25) mg/dL Est GFR (CKD-EPI)AfAm (>60 ml/min/1.73 sqM) Est GFR (CKD-EPI)NonAf (>60 ml/min/1.73 sqM) Glucose (74-99) mg/dL POC Glucose (mg/dL) (70-110) mg/dL POC Glu Embedded Processor ID Plasma Lactic Acid Esau 1.0 (0.7-2.0) mmol/L Calcium (8.4-10.2) mg/dL Magnesium (1.6-2.3) mg/dL Total Bilirubin (0.2-1.3) mg/dL AST (17-59) U/L ALT (4-49) U/L Alkaline Phosphatase (38-126) U/L Troponin I 0.019 (0.000-0.034) ng/mL NT-Pro-B Natriuret Pep 1210 pg/mL Total Protein (6.3-8.2) g/dL Albumin (3.5-5.0) g/dL Digoxin ng/mL 09/23/22 09/23/22 Range/Units 00:25 01:02 WBC (3.8-10.6) k/uL RBC (4.30-5.90) m/uL Hgb (13.0-17.5) gm/dL Hct (39.0-53.0) % MCV (80.0-100.0) fL MCH (25.0-35.0) pg MCHC (31.0-37.0) g/dL RDW (11.5-15.5) % Plt Count (150-450) k/uL MPV Neutrophils % (Manual) % Band Neuts % (Manual) % Lymphocytes % (Manual) % Monocytes % (Manual) % Eosinophils % (Manual) % Neutrophils # (Manual) (1.3-7.7) k/uL Lymphocytes # (Manual) (1.0-4.8) k/uL Monocytes # (Manual) (0-1.0) k/uL Eosinophils # (Manual) (0-0.7) k/uL Nucleated RBCs (0-0) /100 WBC Manual Slide Review PT (9.0-12.0) sec INR (<1.2) APTT (22.0-30.0) sec Sample Site L radial ABG pH 7.39 (7.35-7.45) ABG pCO2 36 (35-45) mmHg ABG pO2 210 H (83-108) mmHg ABG HCO3 22 (21-25) mmol/L ABG Total CO2 23 (19-24) mmol/L ABG O2 Saturation 99.5 H (94-97) % ABG Base Excess -2.8 mmol/L Eugene Test Yes FiO2 100 % Sodium (137-145) mmol/L Potassium (3.5-5.1) mmol/L Chloride (98-107) mmol/L Carbon Dioxide (22-30) mmol/L Anion Gap mmol/L BUN (9-20) mg/dL Creatinine (0.66-1.25) mg/dL Est GFR (CKD-EPI)AfAm (>60 ml/min/1.73 sqM) Est GFR (CKD-EPI)NonAf (>60 ml/min/1.73 sqM) Glucose (74-99) mg/dL POC Glucose (mg/dL) 113 H (70-110) mg/dL POC Glu Embedded Processor ID Durga Villalta Plasma Lactic Acid Esau (0.7-2.0) mmol/L Calcium (8.4-10.2) mg/dL Magnesium (1.6-2.3) mg/dL Total Bilirubin (0.2-1.3) mg/dL AST (17-59) U/L ALT (4-49) U/L Alkaline Phosphatase (38-126) U/L Troponin I (0.000-0.034) ng/mL NT-Pro-B Natriuret Pep pg/mL Total Protein (6.3-8.2) g/dL Albumin (3.5-5.0) g/dL Digoxin ng/mL - EKG Data -: EKG Interpreted by Me EKG Comments: 12-lead Electrocardiogram Interpretation Note EKG was reviewed and interpreted by myself. 12-lead ECG performed at 0054 is interpreted by me as revealing atrial tachycardia at a rate of 113 beats per minute. [place] is normal. GA interval is 199 ms, QRS durations 101 ms, QTc is 429 ms.. There were no acute ST or T wave abnormalities to suggest myocardial ischemia or injury. R wave progression across the precordium was satisfactory. By my interpretation this EKG is non-diagnostic for acute ischemia. When compared with EKG from August 2022, no significant change. Critical Care Time Critical Care Time: Yes Total Critical Care Time: 35 Critical Care Time: Upon my evaluation, this patient had a high probability of imminent or life- threatening deterioration due to sepsis, hypoxic respiratory failure requiring i ntubation and mechanical ventilation, pneumonia, altered mental status, which required my direct attention, intervention, and personal management. I have personally provided 35 minutes of critical care time exclusive of time spent on separately billable procedures. Time includes review of laboratory data, radiology results, discussion with consultants, and monitoring for potential decompensation. Interventions were performed as documented in my note. Disposition Clinical Impression: Pneumonia, Sepsis, Altered mental status, Sepsis with acute hypoxic respiratory failure, COPD exacerbation Disposition: ADMITTED IP TO THIS HOSP Condition: Serious Time of Disposition: 02:50
[2022-09-23] MEDS: CEFEPIME 2 GM in SODIUM CHLORIDE 0.9% 100 ML IVPB SCH ×3 (02:18→17:45)
[2022-09-23 02:23] LABS: Band Neutrophils % 6 %; Eosinophils # (M) 0.23 k/uL (0-0.7); Lymphocytes # (M) 0.91 k/uL (1.0-4.8); Neutrophils % (M) 67 %; Nucleated Red Blood Cells 0 /100 WBC (0-0); Total Cells Counted 100
[2022-09-23] MEDS ORDERED: NALOXONE 0.4 MG/ML 1 ML VIAL IV PRN (03:06)
--- NOTE | 2022-09-23 04:08 | CT ---
EXAMINATION TYPE: CT chest angio for PE DATE OF EXAM: 09/23/2022 COMPARISON: None HISTORY: og tube and hypoxia CT DLP: 511.8 mGycm Automated exposure control for dose reduction was used. CONTRAST: Performed with IV Contrast, patient injected with 80 mL of Isovue 370. Images obtained from the thoracic inlet to the diaphragm with the IV contrast. There are Three-D post processed images. There is patchy infiltrates and atelectasis in the mid and lower lung gavin. Heart is slightly enlar ged. No pericardial effusion. No pericardial effusion. There is irregular 5 cm cavitating infiltrate in the left upper lobe adjacent to the major fissure. There are no hilar masses. No mediastinal adenopathy. There is endotracheal tube. There is nasogastri c tube in the stomach. There is no evidence of filling defect in the pulmonary arteries. There are clips from cholecystectom y. There is degenerative spurring in the thoracic spine. No compression fracture. Sternum is intact. The ribs are intact. The thoracic aorta is intact. No aneurysm or dissection. IMPRESSION: No evidence of pulmonary embolism. Bilateral patchy pulmonary infiltrates at the lung bases. There is some coalescent cavitating infiltr ate in the left mid lung field not significantly different than old exam. Follow-up is recommended. T umor is possible.
[2022-09-23 04:41] LABS: Appearance,Urine Clear (Clear); Bilirubin,Urine Negative (Negative); Blood,Urine Small (Negative); Calcium Oxalate Crystals,Urine Few /hpf; Color,Urine Yellow; Glucose,Urine (UA) Negative (Negative); Granular Casts,Urine 1 /lpf (0); Hyaline Casts,Urine 1 /lpf (0-2); Ketones,Urine Trace (Negative); Leukocyte Esterase,Urine Negative (Negative); Mucus,Urine Occasional /hpf; Nitrite,Urine Negative (Negative); Protein,Urine 2+ (Negative); RBC,Urine 1 /hpf (0-5); Specific Gravity,Urine 1.034 (1.001-1.035); Squamous Epithelial Cell,Urine <1 /hpf (0-4); Urobilinogen,Urine <2.0 mg/dL (<2.0); WBC,Urine 2 /hpf (0-5)
[2022-09-23 05:24] LABS: ABG Base Excess -4.7 mmol/L; ABG HCO3 21 mmol/L (21-25); ABG Oxygen Saturation 99.3 % (94-97); ABG PCO2 38 mmHg (35-45); ABG PH 7.35 (7.35-7.45); ABG PO2 135 mmHg (83-108); ABG TCO2 22 mmol/L (19-24); Allen Test Performed? Yes
[2022-09-23 05:47] LABS: Amphetamine Screen,Urine Not Detected (NotDetected); Barbiturate Screen,Urine Not Detected (NotDetected); Benzodiazepines Screen,Urine Not Detected (NotDetected); Cocaine Screen,Urine Not Detected (NotDetected); Methadone Screen, Urine Not Detected (NotDetected); Opiate Screen,Urine Detected (NotDetected); Oxycodone Screen, Urine Not Detected (NotDetected); Phencyclidine Screen,Urine Not Detected (NotDetected); Tricyclic Antidepressant,Urine Detected (NotDetected); Urn Cannabinoid Scrn Not Detected (NotDetected)
[2022-09-23] MEDS: IPRATROPIUM-ALBUTEROL 3 ML NEB INHALATION PRN ×4 (07:14→20:37)
[2022-09-23] MEDS: NOREPINEPHRINE 32 MG in SODIUM CHLORIDE 0.9% 218 ML IV SCH (07:37)
--- NOTE | 2022-09-23 13:50 | P.CNPUL ---
History of Present Illness Consult date: 09/23/22 Requesting physician: Nathanael Kendrick Reason for consult: dyspnea, COPD, hypoxemia, pneumonia, abnormal CXR/CT Chief complaint: Respiratory failure. History of present illness: Pulmonary/critical care consult dated 09/23/2022. 81-year-old male, who is brought into the emergency department, on September 23, shortly after midnight, with shortness of breath, mental status changes, and low saturations. The patient had been at a nursing facility, for IV antibiotics, for pneumonia. He was seen earlier today by his family and was doing well. Apparently the nursing staff noted that the patient's breathing had worsened, and his saturations were in the 50s. For that reason, EMS was called, and the patient was brought into the emergency room. Because of his poor mental status, and respiratory decline, he was intubated by Dr. Hanson. The patient was seen today in the emergency department, trauma room 1. He is currently sedated, on propofol at 14 mcg/kg/m, and is receiving norepinephrine at 0.1 mcg/kg/m. His CTA was negative for pulmonary embolism, but did show some infiltrate and cavi tation in the left lower lobe. He also had bilateral infiltrates and was started on vancomycin and cefepime. Ventilator settings include the volume assist control, rate 20, tidal volume 450, FiO2 50% PEEP of 5. Blood gases on the same settings, except 60%, show a PaO2 of 135, pCO2 of 38, and a pH is 7.35. White count 5.7, hemoglobin 15.4, hematocrit 45.8, and platelet count 235,000. Sodium 135, potassium 3.6, chlorides 107, CO2 23, BUN 20, creatinine 0.75. Albumin was 3. N-terminal proBNP was 1210. Troponin was less than 0.012. The brain CT showed cerebral atrophy and chronic small vessel ischemia but nothing acute. The chest x-ray showed left-sided pulmonary infiltrates, unchanged from her previous x-ray done on September 13. The CT angiogram was negative for pulmonary embolism, but did show bilateral patchy pulmonary infiltrates at the lung bases, with a cavitary lesion in the left midlung. Again, not much change from prior studies. Review of Systems REVIEW OF SYSTEMS: Unable to obtain as the patient is currently on the ventilator, and sedated. CONSTITUTIONAL: [Negative.] NEUROLOGIC: [ Negative.] HEENT: [ Negative.] CARDIAC: [Negative.] PULMONARY: [Negative.] GI: [Negative.] : [Negative.] RHEUMATOLOGIC: [ Negative.] IMMUNOLOGIC: [ Negative.] ENDOCRINE: [Negative. ] DERMATOLOGIC: [Negative.] Past Medical History Past Medical History: Atrial Flutter, Coronary Artery Disease (CAD), Heart Failure, COPD, GERD/Reflux, Hearing Disorder / Deafness, Hyperlipidemia, Hypertension, Osteoarthritis (OA), Renal Disease, Vascular Disorder Additional Past Medical History / Comment(s): hx. gout, hx. colon polyps, circulation problems in legs, slight decreased kidney function, shingles History of Any Multi-Drug Resistant Organisms: MRSA Date of last positivie culture/infection: 02/14/22 MDRO Source:: Right Thigh Past Surgical History: Cholecystectomy, Heart Catheterization, Heart Catheterization With Stent Additional Past Surgical History / Comment(s): right bone graft to collar bone Past Anesthesia/Blood Transfusion Reactions: No Reported Reaction Date of Last Stent Placement:: 05/2020 Past Psychological History: No Psychological Hx Reported Smoking Status: Former smoker Past Alcohol Use History: None Reported Past Drug Use History: None Reported - Past Family History Mother Family Medical History: No Reported History Medications and Allergies Home Medications Medication Instructions Recorded Confirmed Type Atorvastatin [Lipitor] 20 mg PO DAILY 10/17/18 08/28/22 History Budesonide/Formoterol Fumarate 2 puff INHALATION RT-BID 10/17/18 08/28/22 History [Symbicort 160-4.5 Mcg Inhaler] Digoxin [Lanoxin] 125 mcg PO DAILY 10/17/18 08/28/22 History Apixaban [Eliquis] 2.5 mg PO BID 06/05/20 08/28/22 History Clopidogrel [Plavix] 75 mg PO DAILY #30 tab 06/09/20 08/28/22 Rx Acetaminophen Tab [Tylenol] 650 mg PO Q4HR PRN tab 08/02/20 08/28/22 Rx Albuterol Nebulized [Ventolin 2.5 mg INHALATION RT-Q6H PRN 08/28/22 08/28/22 History Nebulized] Furosemide [Lasix] 20 mg PO DAILY 08/28/22 08/28/22 History methocarbamoL [Methocarbamol] 750 mg PO TID PRN 08/28/22 08/28/22 History Cefepime [Maxipime] 2 gm IVPB Q8H #42 each 09/12/22 Rx metroNIDAZOLE [Flagyl] 500 mg PO TID #42 tab 09/12/22 Rx HYDROcodone/APAP 5-325MG [[place] 1 tab PO QID PRN 3 Days #12 tab 09/13/22 Rx 5-325] Allergies Allergy/AdvReac Type Severity Reaction Status Date / Time Penicillins Allergy Anaphylaxis Verified 08/28/22 17:46 Iodinated Contrast Media AdvReac Diarrhea, Verified 08/28/22 17:46 [Iodinated Contrast- Oral RASH and IV Dye] Physical Exam Osteopathic Statement: *. No significant issues noted on an osteopathic structural exam other than those noted in the History and Physical/Consult. Vitals: Vital Signs Temp Pulse Resp BP Pulse Ox FiO2 09/23/22 12:08 96 09/23/22 11:59 90 09/23/22 11:55 50 09/23/22 11:34 78 21 106/70 95 09/23/22 10:48 86 21 106/85 96 09/23/22 09:16 89 23 109/77 96 09/23/22 08:36 63 24 111/68 96 09/23/22 08:27 75 21 118/81 96 09/23/22 08:12 73 23 119/80 96 09/23/22 08:03 71 20 110/73 97 09/23/22 07:52 70 20 95/54 96 09/23/22 07:44 60 21 72/57 96 09/23/22 07:25 108 H 09/23/22 07:15 100 27 H 102/72 96 09/23/22 07:14 105 H 09/23/22 07:07 50 09/23/22 06:20 103 H 22 95/73 95 09/23/22 06:10 105 H 19 101/72 95 09/23/22 06:00 105 H 24 104/80 94 L 09/23/22 05:50 110 H 26 H 104/80 94 L 09/23/22 05:40 106 H 24 97/76 94 L 09/23/22 05:30 105 H 23 96/77 96 09/23/22 05:29 50 09/23/22 05:20 103 H 23 96/77 96 09/23/22 05:10 96.7 F L 112 H 23 117/72 96 09/23/22 05:00 113 H 22 105/92 95 09/23/22 04:50 113 H 19 105/92 95 09/23/22 04:45 60 09/23/22 04:40 103 H 22 110/88 94 L 09/23/22 04:30 101 H 22 116/95 96 09/23/22 04:20 120 H 20 116/95 95 09/23/22 04:10 114 H 19 111/82 94 L 09/23/22 04:00 115 H 20 107/83 97 09/23/22 03:50 115 H 20 107/83 96 09/23/22 03:40 117 H 20 98/81 97 09/23/22 03:30 116 H 20 109/91 97 09/23/22 03:20 112 H 20 109/91 97 09/23/22 03:10 101 H 26 H 117/79 98 09/23/22 02:50 96.3 F L 09/23/22 02:40 121/86 09/23/22 02:30 116 H 20 122/77 91 L 09/23/22 02:20 112 H 20 122/77 92 L 09/23/22 02:10 111 H 20 85/66 96 09/23/22 02:00 104 H 20 85/66 96 09/23/22 01:50 110 H 20 85/66 96 09/23/22 01:45 113 H 09/23/22 01:40 117 H 20 85/66 94 L 09/23/22 01:30 102/89 09/23/22 01:20 102/89 09/23/22 01:10 118 H 19 113/95 97 60 09/23/22 01:06 114 H 20 113/95 98 09/23/22 00:43 100 09/23/22 00:41 100 09/23/22 00:21 122 H 22 90/63 84 L Intake and Output 09/22/22 09/23/22 09/23/22 22:59 06:59 14:59 Intake Total 14.37 0.17 Balance 14.37 0.17 Intake: Intake, IV Titration 14.37 0.17 Amount Norepinephrine 32 mg In 0.17 Sodium Chloride 0.9% 218 ml @ 0.03 MCG/KG/MIN 1. 021 mls/hr IV .Q24H [facility] Rx#:[id number] propofoL 1,000 mg In 14.37 Empty Bag 1 bag @ 15 MCG/ KG/MIN 6.532 mls/hr IV . [id number] [facility] Rx#:[id number] Other: Weight 72.575 kg No acute distress, sedated, with an orally placed endotracheal tube. HEENT examination is grossly unremarkable. Neck supple. Full range of motion. No adenopathy thyromegaly or neck vein distention. Cardiovascular examination reveals regular rhythm rate. S1-S2 normal. No S3 or S4. No discernible murmur noted. Heart sounds are distant. Heart rate 96 bpm. Lungs reveal scattered rhonchi and wheezes. Breath sounds equal. No crackles. Saturations are 95-96%. Breath sounds are equal bilaterally. Abdomen soft bowel sounds are heard. No masses or tenderness. Extremities are intact. No cyanosis clubbing or edema. Skin is without rash or lesion. Neurologic examination cannot be assessed at this time. Results - Laboratory Findings CBC and BMP: 09/23/22 00:15 09/23/22 00:15 ABG ABG pH 7.35 (7.35-7.45) 09/23/22 05:19 ABG pCO2 38 mmHg (35-45) 09/23/22 05:19 ABG pO2 135 mmHg (83-108) H 09/23/22 05:19 ABG O2 Saturation 99.3 % (94-97) H 09/23/22 05:19 PT/INR, D-dimer PT 12.6 sec (9.0-12.0) H 09/23/22 00:15 INR 1.2 (<1.2) H 09/23/22 00:15 Abnormal lab findings: Abnormal Labs 09/23/22 09/23/22 09/23/22 00:15 00:15 00:15 Plt Count 135 L D Lymphocytes # (Manual) 0.91 L PT 12.6 H INR 1.2 H ABG pO2 ABG O2 Saturation Sodium 135 L Glucose 122 H POC Glucose (mg/dL) Total Protein 6.1 L Albumin 3.0 L Urine Protein Urine Ketones Urine Blood Calcium Oxalate Crystal Urine Mucus Urine Opiates Screen U Tricyclic Antidepress 09/23/22 09/23/22 09/23/22 00:25 01:02 04:20 Plt Count Lymphocytes # (Manual) PT INR ABG pO2 210 H ABG O2 Saturation 99.5 H Sodium Glucose POC Glucose (mg/dL) 113 H Total Protein Albumin Urine Protein 2+ H Urine Ketones Trace H Urine Blood Small H Calcium Oxalate Crystal Few H Urine Mucus Occasional H Urine Opiates Screen U Tricyclic Antidepress 09/23/22 09/23/22 04:20 05:19 Plt Count Lymphocytes # (Manual) PT INR ABG pO2 135 H ABG O2 Saturation 99.3 H Sodium Glucose POC Glucose (mg/dL) Total Protein Albumin Urine Protein Urine Ketones Urine Blood Calcium Oxalate Crystal Urine Mucus Urine Opiates Screen Detected H U Tricyclic Antidepress Detected H - Diagnostic Findings Chest x-ray: image reviewed CT scan - chest: image reviewed Assessment and Plan Assessment: Acute hypoxemic respiratory failure, requiring intubation and mechanical ventilation, on 09/23/2022, likely secondary to COPD exacerbation, and pneumonia. Recent admission (08/28 - 09/13), for acute hypoxemic respiratory failure secondary to left-sided pneumonia, and coronavirus associated pneumonia. History of CAD, with previous stenting. History of atrial flutter. History of CHF. History of COPD, from previous tobacco use. History of hyperlipidemia. History of hypertension. Deafness. GERD. History of gout. Plan: Plan dated 09/23/2022. The patient's labs, x-rays, medications are reviewed. The patient is sedated with propofol, and receiving norepinephrine at 0.1 mcg/kg/m. Arterial blood gases are adequate, and vent settings are okay for right now. The patient was placed on vancomycin and cefepime. CT angiogram did not show pulmonary embolism. It did show bibasilar infiltrates and a cavitary infiltrate, and the left mid lung. We'll continue to follow and make recommendations along the way. Prognosis is guarded. The patient will need albuterol sulfate and ipratropium bromide, every 4 hours [id number], as well as antibiotics as mentioned. Time with Patient: Greater than 30
[2022-09-23] MEDS ORDERED: methylPREDNISolone SOD SUCCI 40 MG/ML 1 ML VIAL IV SCH (14:00)
[2022-09-23 14:57] LABS: Glucose,Whole Blood 227 mg/dL (70-110)
[2022-09-23] MEDS: PANTOPRAZOLE 40 MG/10 ML VIAL IVP SCH (15:46)
[2022-09-23] MEDS ORDERED: CISATRACURIUM 2 MG/ML 5 ML VIAL IV ONE (15:49)
[2022-09-23] MEDS: VANCOMYCIN 1,250 MG in SODIUM CHLORIDE 0.9% 250 ML IVPB SCH (16:14)
[2022-09-23 17:44] LABS: Glucose,Whole Blood 189 mg/dL (70-110)
[2022-09-23] MEDS: methylPREDNISolone SOD SUCCI 125 MG/2 ML VIAL IV SCH (17:45)
--- NOTE | 2022-09-23 19:53 | PCN ---
PROCEDURE NOTE This is a Pulmonary/Critical Care Procedure Note PROCEDURE PERFORMED: Right brachial arterial line. PREOPERATIVE DIAGNOSIS: Hypotension. POSTOPERATIVE DIAGNOSIS: Hypotension. ARTERIAL LINE PLACEMENT: Indications: Hemodynamic monitoring. There was informed consent and universal timeout. A time-out was completed verifying correct patient, procedure, site, positioning, and implant(s) or special equipment if applicable. Eugene's test was performed to ensure adequate perfusion. The patient's right wrist was prepped and draped in sterile fashion. 1% Lidocaine was used to anesthetize the area. An 18G Arrow arterial line was introduced into the brachial artery. The catheter was threaded over the guide wire and the needle was removed with appropriate pulsatile blood return. Blood loss was minimal. The catheter was then sutured in place to the skin and a sterile dressing applied. Perfusion to the extremity distal to the point of catheter insertion was checked and found to be adequate. A sterile dressing was applied by the nurse. Again, there was good blood return and waveform. The patient tolerated the procedure well. MMODL / IJN: [id number] /
--- NOTE | 2022-09-23 20:08 | HP ---
HISTORY AND PHYSICAL CHIEF COMPLAINT: Respiratory failure. HISTORY OF PRESENT ILLNESS: This is an 81-year-old gentleman with a past medical history of multiple medical problems including atrial flutter, who was recently diagnosed of pneumonia. The patient was apparently in the rehab with PICC line and IV antibiotics. The patient took a turn for the worse. The patient became unresponsive and hypoxic. The patient sent to [facility] and bilateral pneumonia was noted with possibly left-sided cavitation. The previous cultures showed MRSA from the wound culture and from the blood culture, Staph hominis. Currently, the patient is mechanically intubated in the ER and unable to give a coherent history. Most of the history is taken by discussion with staff, review of chart and discussion with the family at the bedside. PAST MEDICAL HISTORY: Recent pneumonia, atrial fibrillation/flutter. The rest of the history as well as rest of chart is reviewed. HOME MEDICATIONS: Reviewed. Include Flagyl. Dose and rest of medication reviewed. ALLERGIES: Penicillin. FAMILY HISTORY: Could not be taken because the patient is on mechanical ventilation. SOCIAL HISTORY: Could not be taken because the patient is on mechanical ventilation. REVIEW OF SYSTEMS: Could not be taken because the patient is on mechanical ventilation. PHYSICAL EXAMINATION: VITAL SIGNS: Pulse 78, blood pressure 106/70, respiratory rate 21, pulse ox 94% on mechanical ventilation. Vent settings are noted. HEENT: Conjunctivae normal. NECK: No jugular venous distention. CARDIOVASCULAR: S1, S2 RESPIRATIONS: Bilaterally scattered rhonchi and crackles. ABDOMEN: Soft, nontender. No masses palpable. LEGS: No edema. No swelling. NERVOUS SYSTEM: The patient on mechanical ventilation. SKIN: No ulcer, rash, or bleeding. JOINTS: No active deforming arthropathy. LYMPHATICS: No lymphadenopathy. LABORATORY DATA: Reviewed. WBC 5.7. ASSESSMENT: 1. Bilateral pneumonia with failure of outpatient treatment, acute hypoxic respiratory failure, on mechanical ventilation. 2. Rule out left-sided lung cavity. 3. History of chronic obstructive pulmonary disease. 4. Hypertension. 5. Hyperlipidemia. 6. Multiple medical issues. 7. Full code. RECOMMENDATIONS: This is an 81-year-old gentleman, who presented with multiple medical issues. We will monitor the patient closely. I would recommend broad-spectrum IV antibiotics, sputum culture, and blood culture. Pulmonary and Infectious disease evaluation. Resume the home medications. DVT prophylaxis. Prognosis is guarded because of multiple complex medical issues. Further recommendations to follow. Discussed with the patient. The patient is started on vancomycin as well. Cefepime is also being added. We will continue to monitor further. MMODL / IJN: [id number] /
[2022-09-23] MEDS: CHLORHEXIDINE GLUCONATE 15 ML CUP MUCOUS MEM SCH (20:18)
[2022-09-23] MEDS: CLOPIDOGREL 75 MG TAB PO SCH (20:18)
[2022-09-23] MEDS: APIXABAN 2.5 MG TABLET PO SCH (20:18)
[2022-09-23] MEDS: ATORVASTATIN 20 MG TAB PO SCH (20:18)
[2022-09-23] MEDS: FORMOTEROL FUMARATE 20 MCG/2 ML NEBU INHALATION SCH (20:37)
[2022-09-23] MEDS: BUDESONIDE 1 MG/2 ML NEBU INHALATION SCH (20:37)
[2022-09-23 23:48] LABS: Glucose,Whole Blood 154 mg/dL (70-110)
[2022-09-24] MEDS: CEFEPIME 2 GM in SODIUM CHLORIDE 0.9% 100 ML IVPB SCH ×3 (00:10→17:07)
[2022-09-24 00:43] LABS: Glucose,Whole Blood 168 mg/dL (70-110)
[2022-09-24] MEDS: VANCOMYCIN 1,250 MG in SODIUM CHLORIDE 0.9% 250 ML IVPB SCH (02:43)
[2022-09-24 04:21] LABS: Basophils % (A) 0 %; Eosinophils % (A) 0 %; HCT 42.8 % (39.0-53.0); HGB 13.7 gm/dL (13.0-17.5); Hypochromasia Moderate; Lymphocytes # (A) 0.4 k/uL (1.0-4.8); Lymphocytes % (A) 7 %; MCH 30.7 pg (25.0-35.0); MCHC 31.9 g/dL (31.0-37.0); MCV 96.1 fL (80.0-100.0); Mean Platelet Volume 8.5; Monocytes # (A) 0.2 k/uL (0-1.0); Monocytes % (A) 4 %; Neutrophils # (A) 5.2 k/uL (1.3-7.7); Neutrophils % (A) 89 %; Platelet Count 153 k/uL (150-450); RBC 4.45 m/uL (4.30-5.90); RDW 14.5 % (11.5-15.5); WBC 5.8 k/uL (3.8-10.6)
[2022-09-24 04:32] LABS: ALT 31 U/L (4-49); AST 26 U/L (17-59); African American GFR (CKD) >90 (>60 ml/min/1.73 sqM); Albumin 2.8 g/dL (3.5-5.0); Alkaline Phosphatase 76 U/L (38-126); Anion Gap 6 mmol/L; Blood Urea Nitrogen 22 mg/dL (9-20); Calcium 9.9 mg/dL (8.4-10.2); Carbon Dioxide 19 mmol/L (22-30); Chloride 113 mmol/L (98-107); Glucose 198 mg/dL (74-99); Non-African American GFR(CKD) 82 (>60 ml/min/1.73 sqM); Potassium 3.9 mmol/L (3.5-5.1); Sodium 138 mmol/L (137-145); Total Bilirubin 0.3 mg/dL (0.2-1.3); Total Protein 5.6 g/dL (6.3-8.2)
[2022-09-24] MEDS ORDERED: Potassium Replacement Protocol 1 EACH MISC MISCELLANE PRN (04:54)
[2022-09-24] MEDS ORDERED: POTASSIUM BICARBONATE/CIT AC 20 MEQ TABLET.EFF NG-TUBE SCH (05:00)
[2022-09-24] MEDS: methylPREDNISolone SOD SUCCI 125 MG/2 ML VIAL IV SCH ×4 (05:03→19:07)
[2022-09-24 05:43] LABS: ABG Base Excess -8.5 mmol/L; ABG HCO3 18 mmol/L (21-25); ABG Oxygen Saturation 99.5 % (94-97); ABG PCO2 37 mmHg (35-45); ABG PO2 159 mmHg (83-108); ABG TCO2 19 mmol/L (19-24); Allen Test Performed? Yes
[2022-09-24 06:19] LABS: Glucose,Whole Blood 180 mg/dL (70-110)
[2022-09-24] MEDS ORDERED: DEXTROSE 50% SYRINGE 50 ML IVP PRN ×2 (06:19)
[2022-09-24] MEDS: INSULIN ASPART (NovoLOG) 100 UNIT/ML VIAL SQ SCH ×3 (06:33→19:05)
--- NOTE | 2022-09-24 07:28 | XR ---
EXAMINATION TYPE: XR chest 1V portable DATE OF EXAM: 09/24/2022 COMPARISON: 09/23/2022 HISTORY: SOB, Follow Up FINDINGS: Indwelling tubes and catheters are unchanged. Left perihilar infiltrate persists. Stable appearance of the cardio-mediastinal structures at this time. IMPRESSION: 1. Stable portable chest. Clinical correlation and follow up until resolution is recommended.
[2022-09-24] MEDS: NOREPINEPHRINE 32 MG in SODIUM CHLORIDE 0.9% 218 ML IV SCH (07:45)
[2022-09-24] MEDS: BUDESONIDE 1 MG/2 ML NEBU INHALATION SCH ×2 (07:48→19:13)
[2022-09-24] MEDS: FORMOTEROL FUMARATE 20 MCG/2 ML NEBU INHALATION SCH ×2 (07:48→19:13)
[2022-09-24] MEDS: IPRATROPIUM-ALBUTEROL 3 ML NEB INHALATION PRN (07:48)
--- NOTE | 2022-09-24 08:17 | P.CONS ---
History of Present Illness - Reason for Consult Consult date: 09/23/22 Pneumonia cavity Requesting physician: Nathanael Kendrick - Chief Complaint Increasing shortness of breath x one day - History of Present Illness Patient is a 81-year male who was recently admitted at this facility patient did have a COVID afterwards the patient was noticed to have a cavitated infiltrate in the left midlung for the patient did get a PICC line and was getting cefepime and oral Flagyl at the local [facility] patient has not been brought back to the hospital for evaluation of increasing shortness of breath currently the patient become hypoxic the nursing facility. Modified [place] subsequently nonrebreather however his sats was in the 50s subsequently patient become unresponsive and there was rushed to the ER on arrival to the ER patient was afebrile patient did have a normal white count kidney function has been normal liver enzymes are normal urine was negative to screen was positive for opiates and tricyclic's COVID influenza and SARS-CoV-2 was negative blood cultures obtained currently pending patient did have a chest x-ray left-sided pulm infiltrate not significant different from the last exam CT angiogram of the chest was negative for PE did shows right midlung cavitary infiltrates patient was admitted to the ICU as he is on the ventilator continued on cefepime vancomycin has been added infectious disease was consulted for further management of antibiotic therapy most information has been obtained from review the chart talking nursing staff as the patient is currently intubated on the vent and cannot provide any history Review of Systems Positive points has been mentioned in HPI complete review could not be obtained because patient is sedated on the vent Past Medical History Past Medical History: Atrial Flutter, Coronary Artery Disease (CAD), Heart Fa ilure, COPD, GERD/Reflux, Hearing Disorder / Deafness, Hyperlipidemia, Hypertension, Osteoarthritis (OA), Renal Disease, Vascular Disorder Additional Past Medical History / Comment(s): hx. gout, hx. colon polyps, circulation problems in legs, slight decreased kidney function, shingles History of Any Multi-Drug Resistant Organisms: MRSA Year Discovered:: 02/14/22 MDRO Source:: Right Thigh Past Surgical History: Cholecystectomy, Heart Catheterization, Heart Catheterization With Stent Additional Past Surgical History / Comment(s): right bone graft to collar bone Past Anesthesia/Blood Transfusion Reactions: No Reported Reaction Date of Last Stent Placement:: 05/2020 Past Psychological History: No Psychological Hx Reported Smoking Status: Former smoker Past Alcohol Use History: None Reported Past Drug Use History: None Reported - Past Family History Mother Family Medical History: No Reported History Medications and Allergies Home Medications Medication Instructions Recorded Confirmed Type Atorvastatin [Lipitor] 20 mg PO HS 10/17/18 09/23/22 History Budesonide/Formoterol Fumarate 2 puff INHALATION RT-BID 10/17/18 09/23/22 History [Symbicort 160-4.5 Mcg Inhaler] Digoxin [Lanoxin] 125 mcg PO DAILY 10/17/18 09/23/22 History Apixaban [Eliquis] 2.5 mg PO BID 06/05/20 09/23/22 History Albuterol Nebulized [Ventolin 2.5 mg INHALATION RT-Q6H PRN 08/28/22 09/23/22 History Nebulized] Furosemide [Lasix] 20 mg PO DAILY 08/28/22 09/23/22 History methocarbamoL [Methocarbamol] 750 mg PO TID PRN 08/28/22 09/23/22 History Cefepime [Maxipime] 2 gm IVPB Q8H #42 each 09/12/22 09/23/22 Rx HYDROcodone/APAP 5-325MG [Cameron 1 tab PO QID PRN 3 Days #12 tab 09/13/22 09/23/22 Rx 5-325] Acetaminophen [Tylenol Arthritis] 650 mg PO Q4H PRN 09/23/22 09/23/22 History Clopidogrel [Plavix] 75 mg PO HS 09/23/22 09/23/22 History Health Shake(Unknown) 1 dose PO BID@0700,1600 09/23/22 09/23/22 History metroNIDAZOLE [Flagyl] 500 mg PO Q8H 09/23/22 09/23/22 History Allergies Allergy/AdvReac Type Severity Reaction Status Date / Time Penicillins Allergy Anaphylaxis Verified 09/23/22 13:37 Iodinated Contrast Media AdvReac Diarrhea, Verified 09/23/22 13:37 [Iodinated Contrast- Oral RASH and IV Dye] Physical Exam Vitals: Vital Signs Temp Pulse Resp BP Pulse Ox FiO2 09/23/22 13:51 79 21 122/79 96 09/23/22 12:08 96 09/23/22 11:59 90 09/23/22 11:55 50 09/23/22 11:34 78 21 106/70 95 09/23/22 10:48 86 21 106/85 96 09/23/22 09:16 89 23 109/77 96 09/23/22 08:36 63 24 111/68 96 09/23/22 08:27 75 21 118/81 96 09/23/22 08:12 73 23 119/80 96 09/23/22 08:03 71 20 110/73 97 09/23/22 07:52 70 20 95/54 96 09/23/22 07:44 60 21 72/57 96 09/23/22 07:25 108 H 09/23/22 07:15 100 27 H 102/72 96 09/23/22 07:14 105 H 09/23/22 07:07 50 09/23/22 06:20 103 H 22 95/73 95 09/23/22 06:10 105 H 19 101/72 95 09/23/22 06:00 105 H 24 104/80 94 L 09/23/22 05:50 110 H 26 H 104/80 94 L 09/23/22 05:40 106 H 24 97/76 94 L 09/23/22 05:30 105 H 23 96/77 96 09/23/22 05:29 50 09/23/22 05:20 103 H 23 96/77 96 09/23/22 05:10 96.7 F L 112 H 23 117/72 96 09/23/22 05:00 113 H 22 105/92 95 09/23/22 04:50 113 H 19 105/92 95 09/23/22 04:45 60 09/23/22 04:40 103 H 22 110/88 94 L 09/23/22 04:30 101 H 22 116/95 96 09/23/22 04:20 120 H 20 116/95 95 09/23/22 04:10 114 H 19 111/82 94 L 09/23/22 04:00 115 H 20 107/83 97 09/23/22 03:50 115 H 20 107/83 96 09/23/22 03:40 117 H 20 98/81 97 09/23/22 03:30 116 H 20 109/91 97 09/23/22 03:20 112 H 20 109/91 97 09/23/22 03:10 101 H 26 H 117/79 98 09/23/22 02:50 96.3 F L 09/23/22 02:40 121/86 09/23/22 02:30 116 H 20 122/77 91 L 09/23/22 02:20 112 H 20 122/77 92 L 09/23/22 02:10 111 H 20 85/66 96 09/23/22 02:00 104 H 20 85/66 96 09/23/22 01:50 110 H 20 / 96 09/23/22 01:45 113 H 09/23/22 01:40 117 H 20 85/66 94 L 09/23/22 01:30 102/89 09/23/22 01:20 102/89 09/23/22 01:10 118 H 19 113/95 97 60 09/23/22 01:06 114 H 20 113/95 98 09/23/22 00:43 100 09/23/22 00:41 100 09/23/22 00:21 122 H 22 90/63 84 L Intake and Output 09/22/22 09/23/22 09/23/22 22:59 06:59 14:59 Intake Total 14.37 0.17 Balance 14.37 0.17 Intake: Intake, IV Titration 14.37 0.17 Amount Norepinephrine 32 mg In 0.17 Sodium Chloride 0.9% 218 ml @ 0.03 MCG/KG/MIN 1. 021 mls/hr IV .Q24H [facility] Rx#:[id number] propofoL 1,000 mg In 14.37 Empty Bag 1 bag @ 15 MCG/ KG/MIN 6.532 mls/hr IV . [id number] [facility] Rx#:[id number] Other: Weight 72.575 kg GENERAL DESCRIPTION: Elderly male intubated on the vent. No tachypnea or accessory muscle of respiration use. HEENT: Shows Pallor , no scleral icterus. Patient is orally intubated NECK: Trachea central, no thyromegaly. LUNGS: Unlabored breathing. Coarse breath sounds bilaterally HEART: S1, S2, regular rate and rhythm. No loud murmur ABDOMEN: Soft, no tenderness , guarding or rigidity, no organomegaly EXTREMITIES: No edema of feet. SKIN: No rash, no masses palpable. NEUROLOGICAL: The patient is sedated on the vent Results CBC & Chem 7: 09/24/22 04:13 09/24/22 04:13 Labs: Abnormal Lab Results - Last 24 Hours (Table) 09/23/22 09/23/22 09/23/22 Range/Units 00:15 00:15 00:15 Plt Count 135 L D (150-450) k/uL Lymphocytes # (Manual) 0.91 L (1.0-4.8) k/uL PT 12.6 H (9.0-12.0) sec INR 1.2 H (<1.2) ABG pO2 (83-108) mmHg ABG O2 Saturation (94-97) % Sodium 135 L (137-145) mmol/L Glucose 122 H (74-99) mg/dL POC Glucose (mg/dL) (70-110) mg/dL Total Protein 6.1 L (6.3-8.2) g/dL Albumin 3.0 L (3.5-5.0) g/dL Urine Protein (Negative) Urine Ketones (Negative) Urine Blood (Negative) Calcium Oxalate Crystal (None) /hpf Urine Mucus (None) /hpf Urine Opiates Screen (NotDetected) U Tricyclic Antidepress (NotDetected) 09/23/22 09/23/22 09/23/22 Range/Units 00:25 01:02 04:20 Plt Count (150-450) k/uL Lymphocytes # (Manual) (1.0-4.8) k/uL PT (9.0-12.0) sec INR (<1.2) ABG pO2 210 H (83-108) mmHg ABG O2 Saturation 99.5 H (94-97) % Sodium (137-145) mmol/L Glucose (74-99) mg/dL POC Glucose (mg/dL) 113 H (70-110) mg/dL Total Protein (6.3-8.2) g/dL Albumin (3.5-5.0) g/dL Urine Protein 2+ H (Negative) Urine Ketones Trace H (Negative) Urine Blood Small H (Negative) Calcium Oxalate Crystal Few H (None) /hpf Urine Mucus Occasional H (None) /hpf Urine Opiates Screen (NotDetected) U Tricyclic Antidepress (NotDetected) 09/23/22 09/23/22 Range/Units 04:20 05:19 Plt Count (150-450) k/uL Lymphocytes # (Manual) (1.0-4.8) k/uL PT (9.0-12.0) sec INR (<1.2) ABG pO2 135 H (83-108) mmHg ABG O2 Saturation 99.3 H (94-97) % Sodium (137-145) mmol/L Glucose (74-99) mg/dL POC Glucose (mg/dL) (70-110) mg/dL Total Protein (6.3-8.2) g/dL Albumin (3.5-5.0) g/dL Urine Protein (Negative) Urine Ketones (Negative) Urine Blood (Negative) Calcium Oxalate Crystal (None) /hpf Urine Mucus (None) /hpf Urine Opiates Screen Detected H (NotDetected) U Tricyclic Antidepress Detected H (NotDetected) Assessment and Plan (1) Pneumonia Current Visit: Yes Status: Acute Code(s): J18.9 - PNEUMONIA, UNSPECIFIED ORGANISM SNOMED Code(s): 089061075 Plan: 1patient presented to hospital with an episode of unresponsiveness hypoxemia in this patient with multiple comorbidities including COPD recent covid19 and did have right midlung cavitating pneumonia question of aspiration. 2patient benefit from bronchoscopy as the patient is on the vent to rule out underlying malignancy and obtain deep culture. 3patient to continue with the cefepime and vancomycin while waiting for the cultures to be finalized. 4we will check inflammatory markers. We will follow on clinical condition and cultures to further adjust medication if needed Thank you for this consultation will follow this patient along with you Time with Patient: Greater than 30
[2022-09-24] MEDS: IPRATROPIUM-ALBUTEROL 3 ML NEB INHALATION SCH ×4 (08:58→19:13)
[2022-09-24] MEDS: FUROSEMIDE 20 MG TAB PO SCH (09:07)
[2022-09-24] MEDS: PANTOPRAZOLE 40 MG/10 ML VIAL IVP SCH (09:07)
[2022-09-24] MEDS: APIXABAN 2.5 MG TABLET PO SCH ×2 (09:07→20:11)
[2022-09-24] MEDS: CHLORHEXIDINE GLUCONATE 15 ML CUP MUCOUS MEM SCH ×2 (09:07→20:11)
--- NOTE | 2022-09-24 09:50 | P.PN ---
Subjective Progress Note Date: 09/24/22 81-year-old male, who is brought into the emergency department, on September 23, shortly after midnight, with shortness of breath, mental status changes, and low saturations. The patient had been at a nursing facility, for IV antibiotics, for pneumonia. He was seen earlier today by his family and was doing well. Apparently the nursing staff noted that the patient's breathing had worsened, and his saturations were in the 50s. For that reason, EMS was called, and the patient was brought into the emergency room. Because of his poor mental status, and respiratory decline, he was intubated by Dr. Hanson. The patient was seen today in the emergency department, trauma room 1. He is currently sedated, on propofol at 14 mcg/kg/m, and is receiving norepinephrine at 0.1 mcg/kg/m. His CTA was negative for pulmonary embolism, but did show some infiltrate and cavitation in the left lower lobe. He also had bilateral infiltrates and was started on vancomycin and cefepime. Ventilator settings include the volume assist control, rate 20, tidal volume 450, FiO2 50% PEEP of 5. Blood gases on the same settings, except 60%, show a PaO2 of 135, pCO2 of 38, and a pH is 7.35. White count 5.7, hemoglobin 15.4, hematocrit 45.8, and platelet count 235,000. Sodium 135, potassium 3.6, chlorides 107, CO2 23, BUN 20, creatinine 0.75. Albumin was 3. N-terminal proBNP was 1210. Troponin was less than 0.012. The brain CT showed cerebral atrophy and chronic small vessel ischemia but nothing acute. The chest x-ray showed left-sided pulmonary infiltrates, unchanged from her previous x-ray done on September 13. The CT angiogram was negative for pulmonary embolism, but did show bilateral patchy pulmonary infiltrates at the lung bases, with a cavitary lesion in the left midlung. Again, not much change from prior studies. On today's evaluation of 09/24/2022, the patient remains intubated on mechanical ventilator. The patient arrived to the emergency department yesterday with shortness of breath and altered mentation hypoxemia. Immediately, he was intubated and placed on a mechanical ventilator. This morning, he is sedated and he is on propofol running at 30 mcg/kg/m. He is on IV fluids with normal saline at the rate of 75 mL an hour. He is also off pressors. He was briefly started on pressors yesterday and he was taken off the pressors and the patient is currently maintaining his own blood pressure. He has a femoral triple-lumen catheter on the right and he has a brachial arterial line on the right. He is on a mechanical ventilator. He is on assist control mode at the rate of 20 with a tidal volume of 450 and FiO2 of 40% with a PEEP of 5. His peak airway pressure is around 25. Morning blood gases showed a pH of 7.3 with a pCO2 of 37 and pO2 of 159. His chest x-ray is showing adequate expansion of both lungs. ET tube is in a good location. There is some left perihilar pulmonary infiltrates which are unchanged compared to yesterday. His white cell count of 5.8 with a hemoglobin of 15.7 and a platelet count of 153. Electrolytes are all within normal limits. His coagulation profile is also within normal limits. His repeat Covid 19 testing came back negative knowing that he was in the hospital back in August for a Covid 19 infection treated and discharged home. Urine drug screen is positive for opiates and tricyclics. His troponins were negative and his proBNP level was 1210. He is wetting well-known to me. He has history of COPD and the patient has an FEV1 of 72% of predicted. The patient will maintain on Symbicort on outpatient basis in addition to Ventolin rescue inhaler when necessary. Is a chronic smoker and he quit smoking 2015. Has hypertension, coronary artery disease and he was found to have triple-vessel disease and he was not found to be be a good candidate for bypass surgery. He was given a coronary stent in LAD where there was an 80% proximal LAD lesion and this was done while the patient was being supported by an Impala device. He is known to have peripheral vascular disease, vitamin B12 deficiency. He was having several episodes of syncope for which she was hospitalized and he had an extensive cardiac evaluation and the exact cause for this recurrent syncope was not established. He has previous history paroxysmal atrial fibrillation. CAT scan of the brain showed chronic small vessel ischemia Objective - Vital Signs Vital signs: Vital Signs Temp 95.0 F L 09/24/22 08:00 Pulse 93 09/24/22 09:00 Resp 20 09/24/22 09:00 BP 136/69 09/24/22 05:00 Pulse Ox 98 09/24/22 09:00 FiO2 40 09/24/22 08:00 Intake & Output 09/23/22 09/24/22 09/24/22 18:59 06:59 18:59 Intake Total 142.611 7013.238 75 Output Total 710 420 75 Balance 56.957 738.238 0 Weight 75.8 kg Intake: IV 650 975 75 Cefepime 2 gm In Sodium 100 Chloride 0.9% 100 ml @ 200 mls/hr IVPB Q8H [facility] Rx#:[id number] Sodium Chloride 0.9% 1, 300 975 75 000 ml @ 75 mls/hr IV . [id number] [facility] Rx#:[id number] Vancomycin 1,250 mg In 250 Sodium Chloride 0.9% 250 ml @ 125 mls/hr IVPB Q12H [facility] Rx#:[id number] Intake, IV Titration 116.957 183.238 Amount Norepinephrine 32 mg In 31.327 14.725 Sodium Chloride 0.9% 218 ml @ 0.03 MCG/KG/MIN 1. 021 mls/hr IV .Q24H [facility] Rx#:[id number] propofoL 1,000 mg In 85.630 168.513 Empty Bag 1 bag @ 15 MCG/ KG/MIN 6.532 mls/hr IV . [id number] [facility] Rx#:[id number] Output: Urine 710 420 75 Other: Voiding Method Indwelling Catheter Indwelling Catheter Indwelling Catheter ABP, PAP, CO, CI - Last Documented Arterial Blood Pressure 99/55 - Exam No acute distress, sedated, with an orally placed endotracheal tube. HEENT examination is grossly unremarkable. Neck supple. Full range of motion. No adenopathy thyromegaly or neck vein distention. Cardiovascular examination reveals regular rhythm rate. S1-S2 normal. No S3 or S4. No discernible murmur noted. Heart sounds are distant. Lungs reveal scattered rhonchi and wheezes. Breath sounds equal. No crackles. Breath sounds are equal bilaterally. Abdomen soft bowel sounds are heard. No masses or tenderness. Extremities are intact. No cyanosis clubbing or edema. Skin is without rash or lesion. Neurologic examination cannot be assessed at this time. - Labs CBC & Chem 7: 09/24/22 04:13 09/24/22 04:13 Labs: Abnormal Lab Results - Last 24 Hours (Table) 09/23/22 09/23/22 09/23/22 Range/Units 14:44 17:43 23:47 Lymphocytes # (1.0-4.8) k/uL ABG pH (7.35-7.45) ABG pO2 (83-108) mmHg ABG HCO3 (21-25) mmol/L ABG O2 Saturation (94-97) % Chloride (98-107) mmol/L Carbon Dioxide (22-30) mmol/L BUN (9-20) mg/dL Glucose (74-99) mg/dL POC Glucose (mg/dL) 227 H 189 H 154 H (70-110) mg/dL Total Protein (6.3-8.2) g/dL Albumin (3.5-5.0) g/dL 09/24/22 09/24/22 09/24/22 Range/Units 00:42 04:13 04:13 Lymphocytes # 0.4 L (1.0-4.8) k/uL ABG pH (7.35-7.45) ABG pO2 (83-108) mmHg ABG HCO3 (21-25) mmol/L ABG O2 Saturation (94-97) % Chloride 113 H (98-107) mmol/L Carbon Dioxide 19 L (22-30) mmol/L BUN 22 H (9-20) mg/dL Glucose 198 H (74-99) mg/dL POC Glucose (mg/dL) 168 H (70-110) mg/dL Total Protein 5.6 L (6.3-8.2) g/dL Albumin 2.8 L (3.5-5.0) g/dL 09/24/22 09/24/22 Range/Units 05:40 06:18 Lymphocytes # (1.0-4.8) k/uL ABG pH 7.30 L (7.35-7.45) ABG pO2 159 H (83-108) mmHg ABG HCO3 18 L (21-25) mmol/L ABG O2 Saturation 99.5 H (94-97) % Chloride (98-107) mmol/L Carbon Dioxide (22-30) mmol/L BUN (9-20) mg/dL Glucose (74-99) mg/dL POC Glucose (mg/dL) 180 H (70-110) mg/dL Total Protein (6.3-8.2) g/dL Albumin (3.5-5.0) g/dL Microbiology - Last 24 Hours (Table) 09/23/22 00:30 Blood Culture - Preliminary Blood No Growth after 24 hours 09/23/22 00:15 Blood Culture - Preliminary Blood No Growth after 24 hours 09/23/22 12:12 Sputum Culture - Preliminary Sputum Assessment and Plan Plan: Acute hypoxemic respiratory failure, requiring intubation and mechanical ventilation, on 09/23/2022, likely secondary to COPD exacerbation, and pneumonia. Recent admission (08/28- 09/13/22), for acute hypoxemic respiratory failure secondary to left-sided pneumonia, and coronavirus associated pneumonia. History of CAD, with previous stenting. History of atrial flutterfibrillation and current rhythm is atrial fibrillation and the rate is controlled for now History of CHF. The patient's most his echocardiogram from 06/06/2020 showed impaired LV function with an ejection fraction of 35-40% along with borderline concentric LVH, no other valvular abnormalities. Repeat echocardiogram will be needed. History of COPD, from previous tobacco use. The patient is known to have triple-vessel disease and the patient was supposed to undergo bypass surgery, however he was not found to be an appropriate candidate. He was given stent to his LAD as the patient was found to have an 80% proximal LAD lesion. Episodes of recurrent unexplained syncope, could be cardiac History of hyperlipidemia. History of hypertension. Deafness. GERD. History of gout. Plan Overall condition is stable. Hemodynamically stable. The patient is having adequate oxygenation while being intubated on a mechanical ventilator. No signs of significant bronchospasm wheezing and the peak anesthetic at a pressures are quite low. His cardiac rhythm is atrial fibrillation and the patient is currently off pressors. Give the patient has sedation holiday and assess his mental status assess weaning parameters assess candidacy for further weaning Continue bronchodilators and steroids Check pro calcitonin level IV fluids at 75 mL an hour Discontinue the vancomycin and keep the cefepime for now Sputum Gram stain and culture and blood cultures Give the patient cramps of sodium bicarb Repeat echocardiogram and this may be a limited echocardiogram to evaluate his LV function We'll continue to follow. We'll start tube feedings if the patient is unable to extubate today. Resume all medication including long-term and coagulation with Eliquis Visit critical care evaluation that was done in more than 30 minutes. We'll continue to follow make further accommodation based on her progress. Time with Patient: Greater than 30
[2022-09-24] MEDS: DIGOXIN 125 MCG TAB PO SCH (11:23)
[2022-09-24 11:45] LABS: Glucose,Whole Blood 155 mg/dL (70-110)
--- NOTE | 2022-09-24 12:08 | CA ---
Transthoracic Echo Report Name: Balwinder Lucero Age: 81 Gender: M : 1940 Exam Date: 09/24/2022 10:59 Exam Location: [facility] Ht (in): 70 Wt (lb): 167 Ordering Physician: Deepa Colon Attending/Referring Phys: Director Trading Irma Shetty RDCS Procedure CPT: Indications: Syncope Cardiac Hx: Technical Quality: Fair Contrast 1: Total Dose (mL): Contrast 2: Total Dose (mL): MEASUREMENTS (Male / Female) Normal Values 2D ECHO LV Diastolic Diameter PLAX 4.3 cm 4.2 - 5.9 / 3.9 - 5.3 cm LV Systolic Diameter PLAX 3.0 cm IVS Diastolic Thickness 1.4 cm 0.6 - 1.0 / 0.6 - 0.9 cm LVPW Diastolic Thickness 1.3 cm 0.6 - 1.0 / 0.6 - 0.9 cm LV Relative Wall Thickness 0.6 RV Internal Dim ED PLAX 3.3 cm LVOT Diameter 2.2 cm LA Volume 35.7 cm??? 18 - 58 / 22 - 52 cm??? M-MODE Aortic Root Diameter MM 3.5 cm LA Systolic Diameter MM 3.6 cm LA Ao Ratio MM 1.1 AV Cusp Separation MM 2.1 cm DOPPLER AV Peak Velocity 178.3 cm/s AV Peak Gradient 12.7 mmHg AV Mean Velocity 122.3 cm/s AV Mean Gradient 6.7 mmHg AV Velocity Time Integral 27.0 cm LVOT Peak Velocity 92.9 cm/s LVOT Peak Gradient 3.5 mmHg AV Area Cont Eq pk 2.0 cm??? TR Peak Velocity 255.9 cm/s TR Peak Gradient 26.2 mmHg Right Ventricular Systolic Press 29.4 mmHg FINDINGS Left Ventricle Mildly increased left ventricular wall thickness. Left ventricular ejection fraction is estimated at 50 %. Right Ventricle Mild right ventricular dilatation. Right ventricular systolic pressure within normal limits. Prominent moderator band in right ventricle (normal variant). Right Atrium Normal right atrial size. Left Atrium Normal left atrial size. Mitral Valve Structurally normal mitral valve. Mild mitral regurgitation. Mitral valve thickened. Moderate mitral annular calcification. Aortic Valve Trileaflet aortic valve. No aortic stenosis. No aortic regurgitation. Thickened aortic valve without stenosis. Tricuspid Valve Structurally normal tricuspid valve. Mild tricuspid regurgitation. Pulmonic Valve Structurally normal pulmonic valve. Trace pulmonic regurgitation. Pericardium No pericardial effusion. Aorta Normal size aortic root and proximal ascending aorta. CONCLUSIONS Left ventricular ejection fraction 50% Mild increased left ventricular wall thickness Mildly dilated right ventricle Mild mitral regurgitation Mitral annular calcification Mild tricuspid regurgitation RVSP 29 No pericardial effusion Previewed by: Dr. Jalil Santo DO (Electronically Signed) Final Date: 24 September 2022 12:07
--- NOTE | 2022-09-24 12:24 | PN ---
PROGRESS NOTE DATE OF SERVICE: 09/24/2022 SUBJECTIVE: This is an 81-year-old gentleman, who was admitted with bilateral pneumonia, acute respiratory failure, on mechanical ventilation. The patient was closely monitored in the ICU. The patient is started on broad-spectrum IV antibiotics including cefepime. The patient has a failure of outpatient treatment. Infectious Disease as well as Dr. Patrick has been consulted. The patient also had atrial flutter, fibrillation, and history of CHF also. Cardiac evaluation also underway. PAST MEDICAL HISTORY: Reviewed. REVIEW OF SYSTEMS: Could not be taken. CURRENT MEDICATIONS: Reviewed include DuoNeb. Dose and rest of medications noted. PHYSICAL EXAMINATION: VITAL SIGNS: Pulse is 87, blood pressure 104/52, respirations 20. HEENT: Conjunctivae normal. NECK: No JVD. CARDIOVASCULAR: S1, S2 muffled. RESPIRATIONS: Bilateral scattered rhonchi and crackles. Expiratory wheezing. ABDOMEN: Soft. NERVOUS SYSTEM: No focal deficits. LABS: CBC within normal limits. Glucose noted. ASSESSMENT: 1. Bilateral pneumonia with failure of outpatient treatment with acute hypoxic respiratory failure, on mechanical ventilation. 2. Rule out left-sided lung cavity. 3. History of chronic obstructive pulmonary disease. 4. History of atrial flutter/ fibrillation. 5. Hypertension. 6. Hyperlipidemia. 7. Multiple medical issues. 8. FULL CODE. RECOMMENDATIONS AND DISCUSSION: Recommend to continue current management and symptomatic treatment. Continue with bronchodilators. Continue with empiric antibiotics. Follow the cultures. Follow closely with Infectious Disease and Pulmonary. Prognosis guarded. Discussed with family. Further recommendations to follow. MMODL / IJN: [id number] /
[2022-09-24] MEDS ORDERED: CISATRACURIUM 2 MG/ML 5 ML VIAL IV ONE (13:16)
--- NOTE | 2022-09-24 13:33 | P.PCN ---
Date of Procedure: 09/24/22 Preoperative Diagnosis: left lung cavitating infiltrate Postoperative Diagnosis: Left lung cavitating infiltrate Procedure(s) Performed: Bronchoscopy and a bronchial lavage of the left upper lobe Anesthesia: MAHENDRA Surgeon: Gladys Patrick Network Development Coordinator #1: Deepa Colon Estimated Blood Loss (ml): 0 Pathology: other Condition: critical Disposition: ICU Operative Findings: This procedure was done in the intensive care unit. The patient was already intubated on a mechanical ventilator. The patient was placed on a percent FiO2 and the patient was given a total of 10 mg of Nimbex IV. The patient was oxygenating normally and this procedure was done while the patient was on propofol The patient was already intubated and the patient had a orotracheal tube in place. A adapter was attached and orotracheal tube and following that the flexible bronchoscope was easily passed through the orotracheal tube into the lower trachea. The distal ET tube was seen around 2 cm above the roberth. Airway inspection was done. The observed airways included the distal one third of the trachea, bilateral mainstem bronchi, right lung involving the right upper lobe right middle lobe and the right lower lobe and the various 10 segments on the right and the left side included the left upper lobe and the left lower lobe and the various aches segments on the left. Airways were patent. No foreign bodies. There was some mucosal inflammatory changes throughout the airways bilaterally. No copious secretions. The bronchoscope was wedged into the lingula superior segment and a total of 80 mL of fluid was infused and 25 mL was suctioned back without any major difficulties. The aspirate was nonbloody. Therapeutic airway suctioning was done and the bronchoscope was removed without any major difficulties. The patient remained hemodynamically stable throughout the procedure. The patient maintain his oxygenation. Bronchoscope was removed and the patient was kept on sedation. The samples will be sent for microbial cultures and analysis.
--- NOTE | 2022-09-24 15:22 | CDI ---
Documentation Clarification Form Date: 09/24/2022 03:06:00 PM From: Simran Blanca RN CCDS Admit Date: 09/23/2022 03:08:00 AM Patient Name: Balwinder Lucero Visit Number: [id number] Discharge Date: ATTENTION: The Clinical Documentation Specialists (CDI) and [facility] Coding Staff appreciate your assistance in clarifying documentation. Please respond to the clarification below the line at the bottom and electronically sign. The CDI & [facility] Coding staff will review the response and follow-up if needed. Please note: Queries are made part of the Legal Health Record. If you have any questions, please contact the author of this message via ITS. Dr. Nathanael Kendrick Sepsis is documented ED Note, 09/23, but is not noted in subsequent documentation. Clarification is requested. History/Risk Factors: 81-year-old male presents to the ED via EMS from ECF after being hypoxic on nonrebreather mask and non-responsive. Medical History: COPD, heart failure, recent pneumonia and atrial fibrillation. 09/23, H&P. Clinical Indicators: VSS: 09/23 B/P 90/63; HR 122; RR 22; SpO2 84% BiPAP; 09/23 02:50 Temp 96.3 F Axillary Labs: 09/23 Platelet count 135; lymph 0.91; PT 12.6; INR 1.2; NA 135; Glucose 1222; bnp 1210; Total protein 6.1; Albumin 3.0 CXR: 09/23 Left sided pulmonary infiltrates not significantly different that last exam. Treatment: 09/23 0.9ns 75cc/hr [id number] ; 09/23 Vancomycin IVPB x 1; 09/23 Cefepime IVPB Q8hr; 09/23 Duoneb RT Q2H PRN; 09/23 Solumedrol IV Q6HR; 09/23 Pulmicort RT BID [facility]; 09/24 Novolog SQ Q6HR; 09/24 Duoneb RT Q4H M[facility]. Please clarify if the Sepsis is: [ ] Sepsis confirmed, remains under treatment [ ] Sepsis confirmed, resolved [ ] Sepsis ruled out [ ] Other condition, please specify [ ] Unable to determine (Template Last Revised: January 2021) Sepsis ruled out MTDD
[2022-09-24 18:30] LABS: Glucose,Whole Blood 121 mg/dL (70-110)
[2022-09-24] MEDS ORDERED: SODIUM BICARB 8.4% 50 ML SYR (1 MEQ/ML) IV STA (19:22)
[2022-09-24] MEDS: ATORVASTATIN 20 MG TAB PO SCH (20:11)
[2022-09-24] MEDS: CLOPIDOGREL 75 MG TAB PO SCH (20:11)
[2022-09-24 21:22] LABS: Appearance,BF Cloudy
--- NOTE | 2022-09-24 22:12 | P.PN ---
Subjective Progress Note Date: 09/24/22 Principal diagnosis: Cavitatory pneumonia Patient is a 81-year-old male who was recently admitted to this hospital with left-sided cavitating pneumonia question of aspiration patient was getting cefepime and Flagyl at the [facility] presenting back to the hospital with worsening shortness of breath patient was in acute respiratory failure and end up getting intubated. On today's evaluation that is 09/24/2022, the patient is afebrile the patient is hemodynamically stable and FiO2 is currently stable at 30%, and no significant purulent secretion through the ET diarrhea or any other changes reported by the nursing staff Objective - Vital Signs Vital signs: Vital Signs Temp 95.0 F L 09/24/22 08:00 Pulse 101 H 09/24/22 11:00 Resp 21 09/24/22 11:00 BP 136/69 09/24/22 05:00 Pulse Ox 97 09/24/22 11:00 FiO2 40 09/24/22 11:07 Intake & Output 09/23/22 09/24/22 09/24/22 18:59 06:59 18:59 Intake Total 930.643 8185.238 143.804 Output Total 710 420 75 Balance 56.957 738.238 68.804 Weight 75.8 kg 75.8 kg Intake: IV 650 975 75 Cefepime 2 gm In Sodium 100 Chloride 0.9% 100 ml @ 200 mls/hr IVPB Q8H [facility] Rx#:[id number] Sodium Chloride 0.9% 1, 300 975 75 000 ml @ 75 mls/hr IV . [id number] [facility] Rx#:[id number] Vancomycin 1,250 mg In 250 Sodium Chloride 0.9% 250 ml @ 125 mls/hr IVPB Q12H [facility] Rx#:[id number] Intake, IV Titration 116.957 183.238 68.804 Amount Norepinephrine 32 mg In 31.327 14.725 Sodium Chloride 0.9% 218 ml @ 0.03 MCG/KG/MIN 1. 021 mls/hr IV .Q24H [facility] Rx#:[id number] propofoL 1,000 mg In 85.630 168.513 68.804 Empty Bag 1 bag @ 15 MCG/ KG/MIN 6.532 mls/hr IV . [id number] [facility] Rx#:[id number] Output: Urine 710 420 75 Other: Voiding Method Indwelling Catheter Indwelling Catheter Indwelling Catheter ABP, PAP, CO, CI - Last Documented Arterial Blood Pressure 134/74 - Exam GENERAL DESCRIPTION: An elderly male intubated on the vent RESPIRATORY SYSTEM: Unlabored breathing , decreased breath sounds at bases HEART: S1 S2 regular rate and rhythm , ABDOMEN: Soft , no tenderness EXTREMITIES: No edema feet - Labs CBC & Chem 7: 09/24/22 04:13 09/24/22 04:13 Labs: Abnormal Lab Results - Last 24 Hours (Table) 09/23/22 09/23/22 09/23/22 Range/Units 14:44 17:43 23:47 Lymphocytes # (1.0-4.8) k/uL ABG pH (7.35-7.45) ABG pO2 (83-108) mmHg ABG HCO3 (21-25) mmol/L ABG O2 Saturation (94-97) % Chloride (98-107) mmol/L Carbon Dioxide (22-30) mmol/L BUN (9-20) mg/dL Glucose (74-99) mg/dL POC Glucose (mg/dL) 227 H 189 H 154 H (70-110) mg/dL Total Protein (6.3-8.2) g/dL Albumin (3.5-5.0) g/dL 09/24/22 09/24/22 09/24/22 Range/Units 00:42 04:13 04:13 Lymphocytes # 0.4 L (1.0-4.8) k/uL ABG pH (7.35-7.45) ABG pO2 (83-108) mmHg ABG HCO3 (21-25) mmol/L ABG O2 Saturation (94-97) % Chloride 113 H (98-107) mmol/L Carbon Dioxide 19 L (22-30) mmol/L BUN 22 H (9-20) mg/dL Glucose 198 H (74-99) mg/dL POC Glucose (mg/dL) 168 H (70-110) mg/dL Total Protein 5.6 L (6.3-8.2) g/dL Albumin 2.8 L (3.5-5.0) g/dL 09/24/22 09/24/22 Range/Units 05:40 06:18 Lymphocytes # (1.0-4.8) k/uL ABG pH 7.30 L (7.35-7.45) ABG pO2 159 H (83-108) mmHg ABG HCO3 18 L (21-25) mmol/L ABG O2 Saturation 99.5 H (94-97) % Chloride (98-107) mmol/L Carbon Dioxide (22-30) mmol/L BUN (9-20) mg/dL Glucose (74-99) mg/dL POC Glucose (mg/dL) 180 H (70-110) mg/dL Total Protein (6.3-8.2) g/dL Albumin (3.5-5.0) g/dL Microbiology - Last 24 Hours (Table) 09/23/22 12:12 Gram Stain - Preliminary Sputum Sputum Culture - Preliminary 09/23/22 00:30 Blood Culture - Preliminary Blood No Growth after 24 hours 09/23/22 00:15 Blood Culture - Preliminary Blood No Growth after 24 hours Assessment and Plan (1) Pneumonia Current Visit: Yes Status: Acute Code(s): J18.9 - PNEUMONIA, UNSPECIFIED ORGANISM SNOMED Code(s): 466789861 Plan: 1patient presented to hospital with an episode of unresponsiveness hypoxemia in this patient with multiple comorbidities including COPD recent covid19 and did have right midlung cavitating pneumonia question of aspiration. 2patient will benefit from bronchoscopy and this was discuss with the pulmonary team. 3patient to continue with the cefepime and vancomycin while waiting for the cultures to be finalized and monitor clinical Course closely. Time with Patient: Less than 30
[2022-09-24 23:45] LABS: Glucose,Whole Blood 130 mg/dL (70-110)
[2022-09-25] MEDS: IPRATROPIUM-ALBUTEROL 3 ML NEB INHALATION SCH ×6 (00:24→19:54)
[2022-09-25 00:42] LABS: Glucose,Whole Blood 114 mg/dL (70-110)
[2022-09-25] MEDS: INSULIN ASPART (NovoLOG) 100 UNIT/ML VIAL SQ SCH ×4 (00:42→18:58)
[2022-09-25] MEDS: methylPREDNISolone SOD SUCCI 125 MG/2 ML VIAL IV SCH ×4 (00:42→19:00)
[2022-09-25] MEDS: CEFEPIME 2 GM in SODIUM CHLORIDE 0.9% 100 ML IVPB SCH ×3 (00:46→20:36)
[2022-09-25 04:14] LABS: Basophils % (A) 0 %; Eosinophils % (A) 0 %; HCT 39.8 % (39.0-53.0); HGB 13.3 gm/dL (13.0-17.5); Hypochromasia Slight; Lymphocytes # (A) 0.4 k/uL (1.0-4.8); Lymphocytes % (A) 5 %; MCH 31.7 pg (25.0-35.0); MCHC 33.5 g/dL (31.0-37.0); MCV 94.6 fL (80.0-100.0); Mean Platelet Volume 8.7; Monocytes # (A) 0.3 k/uL (0-1.0); Monocytes % (A) 3 %; Neutrophils # (A) 7.9 k/uL (1.3-7.7); Neutrophils % (A) 91 %; Platelet Count 163 k/uL (150-450); RBC 4.21 m/uL (4.30-5.90); RDW 14.8 % (11.5-15.5); WBC 8.6 k/uL (3.8-10.6)
[2022-09-25 04:25] LABS: Calcium 9.7 mg/dL (8.4-10.2); Potassium 3.9 mmol/L (3.5-5.1)
[2022-09-25 05:42] LABS: ABG HCO3 23 mmol/L (21-25); ABG Oxygen Saturation 98.1 % (94-97); ABG PCO2 40 mmHg (35-45); ABG PH 7.36 (7.35-7.45); ABG PO2 97 mmHg (83-108); ABG TCO2 24 mmol/L (19-24); Allen Test Performed? Yes
[2022-09-25] MEDS ORDERED: POTASSIUM BICARBONATE/CIT AC 20 MEQ TABLET.EFF NG-TUBE SCH (06:00)
[2022-09-25] MEDS: FORMOTEROL FUMARATE 20 MCG/2 ML NEBU INHALATION SCH ×2 (07:48→19:54)
[2022-09-25] MEDS: BUDESONIDE 1 MG/2 ML NEBU INHALATION SCH ×2 (07:48→19:54)
[2022-09-25] MEDS: NOREPINEPHRINE 32 MG in SODIUM CHLORIDE 0.9% 218 ML IV SCH (07:54)
[2022-09-25] MEDS: PANTOPRAZOLE 40 MG/10 ML VIAL IVP SCH (08:00)
[2022-09-25] MEDS: CHLORHEXIDINE GLUCONATE 15 ML CUP MUCOUS MEM SCH (08:00)
[2022-09-25] MEDS: APIXABAN 2.5 MG TABLET PO SCH ×2 (08:01→20:36)
[2022-09-25] MEDS: FUROSEMIDE 20 MG TAB PO SCH (08:01)
--- NOTE | 2022-09-25 09:19 | XR ---
EXAMINATION TYPE: XR chest 1V portable DATE OF EXAM: 09/25/2022 Comparison: 09/24/2022. Clinical History: 81-year-old male Tube placement Findings: ET tube and NG tube are satisfactory. Heart upper limits of normal in size. Interstitial prominence s hows slight interval increase. Increased patchy left basilar opacity as well. Left PICC tip upper SVC level. Left PICC tip in the expected region of the brachiocephalic vein confluence. Impression: Slight interval increase in interstitial densities. Also, worsening patchy left basilar atelectasis o r infiltrate.
[2022-09-25] MEDS ORDERED: VANCOMYCIN TROUGH DUE 1 EACH MISC MISCELLANE ONE (13:00)
[2022-09-25 13:29] LABS: Glucose,Whole Blood 143 mg/dL (70-110)
[2022-09-25] MEDS: DIGOXIN 125 MCG TAB PO SCH (14:19)
--- NOTE | 2022-09-25 14:47 | P.PN ---
Subjective Progress Note Date: 09/25/22 81-year-old male, who is brought into the emergency department, on September 23, shortly after midnight, with shortness of breath, mental status changes, and low saturations. The patient had been at a nursing facility, for IV antibiotics, for pneumonia. He was seen earlier today by his family and was doing well. Apparently the nursing staff noted that the patient's breathing had worsened, and his saturations were in the 50s. For that reason, EMS was called, and the patient was brought into the emergency room. Because of his poor mental status, and respiratory decline, he was intubated by Dr. Hanson. The patient was seen today in the emergency department, trauma room 1. He is currently sedated, on propofol at 14 mcg/kg/m, and is receiving norepinephrine at 0.1 mcg/kg/m. His CTA was negative for pulmonary embolism, but did show some infiltrate and cavitation in the left lower lobe. He also had bilateral infiltrates and was started on vancomycin and cefepime. Ventilator settings include the volume assist control, rate 20, tidal volume 450, FiO2 50% PEEP of 5. Blood gases on the same settings, except 60%, show a PaO2 of 135, pCO2 of 38, and a pH is 7.35. White count 5.7, hemoglobin 15.4, hematocrit 45.8, and platelet count 235,000. Sodium 135, potassium 3.6, chlorides 107, CO2 23, BUN 20, creatinine 0.75. Albumin was 3. N-terminal proBNP was 1210. Troponin was less than 0.012. The brain CT showed cerebral atrophy and chronic small vessel ischemia but nothing acute. The chest x-ray showed left-sided pulmonary infiltrates, unchanged from her previous x-ray done on September 13. The CT angiogram was negative for pulmonary embolism, but did show bilateral patchy pulmonary infiltrates at the lung bases, with a cavitary lesion in the left midlung. Again, not much change from prior studies. On today's evaluation of 09/24/2022, the patient remains intubated on mechanical ventilator. The patient arrived to the emergency department yesterday with shortness of breath and altered mentation hypoxemia. Immediately, he was intubated and placed on a mechanical ventilator. This morning, he is sedated and he is on propofol running at 30 mcg/kg/m. He is on IV fluids with normal saline at the rate of 75 mL an hour. He is also off pressors. He was briefly started on pressors yesterday and he was taken off the pressors and the patient is currently maintaining his own blood pressure. He has a femoral triple-lumen catheter on the right and he has a brachial arterial line on the right. He is on a mechanical ventilator. He is on assist control mode at the rate of 20 with a tidal volume of 450 and FiO2 of 40% with a PEEP of 5. His peak airway pressure is around 25. Morning blood gases showed a pH of 7.3 with a pCO2 of 37 and pO2 of 159. His chest x-ray is showing adequate expansion of both lungs. ET tube is in a good location. There is some left perihilar pulmonary infiltrates which are unchanged compared to yesterday. His white cell count of 5.8 with a hemoglobin of 15.7 and a platelet count of 153. Electrolytes are all within normal limits. His coagulation profile is also within normal limits. His repeat Covid 19 testing came back negative knowing that he was in the hospital back in August for a Covid 19 infection treated and discharged home. Urine drug screen is positive for opiates and tricyclics. His troponins were negative and his proBNP level was 1210. He is wetting well-known to me. He has history of COPD and the patient has an FEV1 of 72% of predicted. The patient will maintain on Symbicort on outpatient basis in addition to Ventolin rescue inhaler when necessary. Is a chronic smoker and he quit smoking 2015. Has hypertension, coronary artery disease and he was found to have triple-vessel disease and he was not found to be be a good candidate for bypass surgery. He was given a coronary stent in LAD where there was an 80% proximal LAD lesion and this was done while the patient was being supported by an Impala device. He is known to have peripheral vascular disease, vitamin B12 deficiency. He was having several episodes of syncope for which she was hospitalized and he had an extensive cardiac evaluation and the exact cause for this recurrent syncope was not established. He has previous history paroxysmal atrial fibrillation. CAT scan of the brain showed chronic small vessel ischemia On 09/25/2022, the patient is being seen for a follow-up. Note that the patient underwent a bronchoscopy yesterday and a bronchial lavage of the left upper lobe was done and the results of the pending for now. Meanwhile, this morning, the patient remains on a mechanical ventilator. This morning, I had the patient on assist-control mode at the rate of 20 with a tidal volume of 450 and FiO2 of 30% with a PEEP of 5. The blood gas showed a pH of 7.36 with a pCO2 of 40 and pO2 of 97. The patient is sedated this morning with propofol which is running at 30 microvascular kilogram per minutes. He is on no pressors. IV fluids are at KVO. The patient is receiving vital high protein at the rate of 10 mL an hour. The patient has a white cell count of 8.6 with a hemoglobin 15.3, and a sodium level is at 141 with a potassium level of 3.9 and BUN of 34 with a creatinine of 1.1. The pro calcitonin level was at 0.11. Slight interval increase in the interstitial densities bilaterally. There is some left basilar atelectatic changes. The patient is a PICC line in the left upper extremity and the patient also has a orogastric and orotracheal tube both of the tubes are in good location. The and a microbial cultures are negative. The patient remains on IV cefepime for now. The patient is on bronchodilators. The patient is on IV Solu-Medrol and the patient does not have any significant bronchospasm wheezing or respiratory secretions on today's evaluation. Peak anesthetic pressures are quite low. Objective - Vital Signs Vital signs: Vital Signs Temp 97.4 F L 09/25/22 04:00 Pulse 75 09/25/22 08:09 Resp 20 09/25/22 07:00 BP 125/98 09/25/22 04:00 Pulse Ox 96 09/25/22 07:00 FiO2 30 09/25/22 07:23 Intake & Output 09/24/22 09/25/22 09/25/22 18:59 06:59 18:59 Intake Total 5861.687 2767 Output Total 570 630 Balance 607.450 521 Weight 75.8 kg 81.2 kg Intake: IV 925 1011 Cefepime 2 gm In Sodium 100 Chloride 0.9% 100 ml @ 200 mls/hr IVPB Q8H [facility] Rx#:[id number] Sodium Chloride 0.9% 1, 825 975 000 ml @ 75 mls/hr IV . [id number] ST[facility] Rx#:[id number] pressure bag 36 Intake, IV Titration 152.450 Amount propofoL 1,000 mg In 152.450 Empty Bag 1 bag @ 15 MCG/ KG/MIN 6.532 mls/hr IV . [id number] [facility] Rx#:[id number] Oral 0 Tube Feeding 80 Other 100 60 Output: Urine 570 630 Other: Voiding Method Indwelling Catheter Indwelling Catheter ABP, PAP, CO, CI - Last Documented Arterial Blood Pressure 127/59 - Exam No acute distress, sedated, with an orally placed endotracheal tube. HEENT examination is grossly unremarkable. Neck supple. Full range of motion. No adenopathy thyromegaly or neck vein distention. Cardiovascular examination reveals regular rhythm rate. S1-S2 normal. No S3 or S4. No discernible murmur noted. Heart sounds are distant. Lungs reveal scattered rhonchi and wheezes. Breath sounds equal. No crackles. Breath sounds are equal bilaterally. Abdomen soft bowel sounds are heard. No masses or tenderness. Extremities are intact. No cyanosis clubbing or edema. Skin is without rash or lesion. Neurologic examination cannot be assessed at this time. - Labs CBC & Chem 7: 09/25/22 04:06 09/25/22 04:06 Labs: Abnormal Lab Results - Last 24 Hours (Table) 09/24/22 09/24/22 09/24/22 Range/Units 04:13 11:43 18:29 RBC (4.30-5.90) m/uL Neutrophils # (1.3-7.7) k/uL Lymphocytes # (1.0-4.8) k/uL ABG O2 Saturation (94-97) % Chloride (98-107) mmol/L Carbon Dioxide (22-30) mmol/L BUN (9-20) mg/dL Glucose (74-99) mg/dL POC Glucose (mg/dL) 155 H 121 H (70-110) mg/dL Procalcitonin 0.11 H (0.02-0.09) ng/mL 09/24/22 09/25/22 09/25/22 Range/Units 23:42 00:41 04:06 RBC 4.21 L (4.30-5.90) m/uL Neutrophils # 7.9 H (1.3-7.7) k/uL Lymphocytes # 0.4 L (1.0-4.8) k/uL ABG O2 Saturation (94-97) % Chloride (98-107) mmol/L Carbon Dioxide (22-30) mmol/L BUN (9-20) mg/dL Glucose (74-99) mg/dL POC Glucose (mg/dL) 130 H 114 H (70-110) mg/dL Procalcitonin (0.02-0.09) ng/mL 09/25/22 09/25/22 Range/Units 04:06 05:38 RBC (4.30-5.90) m/uL Neutrophils # (1.3-7.7) k/uL Lymphocytes # (1.0-4.8) k/uL ABG O2 Saturation 98.1 H (94-97) % Chloride 115 H (98-107) mmol/L Carbon Dioxide 21 L (22-30) mmol/L BUN 34 H (9-20) mg/dL Glucose 137 H (74-99) mg/dL POC Glucose (mg/dL) (70-110) mg/dL Procalcitonin (0.02-0.09) ng/mL Microbiology - Last 24 Hours (Table) 09/23/22 00:15 Blood Culture - Preliminary Blood No Growth after 48 hours 09/23/22 00:30 Blood Culture - Preliminary Blood No Growth after 48 hours 09/24/22 13:30 Acid Fast Bacilli Culture - Preliminary Bronchoalviolar Lavage - Left 09/24/22 13:30 Bronchial Washings Culture - Preliminary Bronchoalviolar Lavage - Left 09/24/22 13:30 Fungal Culture - Preliminary Bronchoalviolar Lavage - Left 09/23/22 12:12 Gram Stain - Preliminary Sputum Sputum Culture - Preliminary Assessment and Plan Plan: Acute hypoxemic respiratory failure, requiring intubation and mechanical ventilation, on 09/23/2022, likely secondary to COPD exacerbation, and pneumonia. The patient underwent a bronchoscopy and bronchial lavage of the left upper lobe and there is also still pending for now. Noted the patient had a cavitating pneumonia involving the left lung on a recent hospitalization and the patient was receiving IV antibiotics on outpatient basis and comparing the 2 CAT scans of the chest from this current admission a previous admission shows interval improvement. Recent admission (08/28- 09/13/22), for acute hypoxemic respiratory failure secondary to left-sided pneumonia, and coronavirus associated pneumonia. History of CAD, with previous stenting. History of atrial flutterfibrillation and current rhythm is atrial fibrillation and the rate is controlled for now Extensive left upper lobe and left lower lobe pneumonia with central cavitation. Patient is bronchoscopy and a bronchial lavage was done yesterday. Note that upon comparing the 2 CAT scans from the most recent admissions, left upper lobe cavitating pneumonia was improving and there was interval decrease in the size of the infiltrate and the cavitation. The patient remains on IV cefepime. History of CHF. The patient's most his echocardiogram from 06/06/2020 showed impaired LV function with an ejection fraction of 35-40% along with borderline concentric LVH, no other valvular abnormalities. Repeat echocardiogram will be needed. History of COPD, from previous tobacco use. The patient is known to have triple-vessel disease and the patient was supposed to undergo bypass surgery, however he was not found to be an appropriate candidate. He was given stent to his LAD as the patient was found to have an 80% proximal LAD lesion. Episodes of recurrent unexplained syncope, could be cardiac History of hyperlipidemia. History of hypertension. Deafness. GERD. History of gout. Plan Stop sedation Assessment and status Assess weaning parameters Assess candidacy for further weaning Awaiting the results of the bronchial lavage Continue bronchodilators and steroids Check pro calcitonin level, 0.11 IV fluids at KVO Continue cefepime for now Repeat echo Cardigan showed an ejection fraction of around 50% We'll continue to follow. Hold tube feeds Resume all medication including long-term and coagulation with Eliquis Possible exhibition today Visit critical care evaluation that was done in more than 30 minutes. We'll continue to follow make further accommodation based on her progress. Time with Patient: Greater than 30
[2022-09-25 18:59] LABS: Glucose,Whole Blood 123 mg/dL (70-110)
[2022-09-25] MEDS: ATORVASTATIN 20 MG TAB PO SCH (20:35)
[2022-09-25] MEDS: CLOPIDOGREL 75 MG TAB PO SCH (20:36)
[2022-09-26 00:15] LABS: Glucose,Whole Blood 119 mg/dL (70-110)
[2022-09-26] MEDS: INSULIN ASPART (NovoLOG) 100 UNIT/ML VIAL SQ SCH ×4 (00:30→19:05)
[2022-09-26] MEDS: methylPREDNISolone SOD SUCCI 125 MG/2 ML VIAL IV SCH ×2 (00:40→05:32)
--- NOTE | 2022-09-26 03:28 | PN ---
PROGRESS NOTE DATE OF SERVICE: 09/25/2022 SUBJECTIVE: This 81-year-old gentleman, who was admitted with bilateral pneumonia with failure of outpatient treatment, also acute respiratory failure. The patient also antibiotics. Dr. Malagon and Dr. Patrick are following the patient closely. The patient's cultures are negative so far. The patient was extubated today. The patient is drowsy post extubation. PAST MEDICAL HISTORY: Reviewed. REVIEW OF SYSTEMS: Could not be taken. CURRENT MEDICATIONS: Reviewed and include DuoNeb. Dose and rest of medication reviewed. PHYSICAL EXAMINATION: VITAL SIGNS: Pulse is 79, blood pressure ntd, respirations 14. CHEST: Bilateral scattered rhonchi and crackles. CARDIOVASCULAR: S1, S2. ABDOMEN: Soft. NERVOUS SYSTEM: The patient is still sedated. SKIN: No ulcer, rash, or bleeding. LABORATORY DATA: Reviewed. Chest x-ray reviewed personally. ASSESSMENT: 1. Bilateral pneumonia with acute hypoxic respiratory failure with failure of outpatient treatment, status post mechanical ventilation. 2. Rule out left-sided lung cavity. 3. Chronic obstructive pulmonary disease. 4. Atrial fibrillation history. 5. Hypertension. 6. Hyperlipidemia. 7. Multiple medical issues. 8. FULL CODE. RECOMMENDATIONS: I recommend to continue current medications and symptomatic treatment. Cultures negative as mentioned earlier. At this time, I would recommend to continue with bronchodilators and steroids and rest of the medications. Closely monitor in the ICU. Repeat labs will be ordered. Further recommendations to follow. MMCATARINOL / MAZINN: [id number] / MTDD
[2022-09-26 03:30] LABS: Basophils % (A) 0 %; Eosinophils % (A) 0 %; HCT 39.2 % (39.0-53.0); HGB 12.7 gm/dL (13.0-17.5); Hypochromasia Slight; Lymphocytes # (A) 0.4 k/uL (1.0-4.8); Lymphocytes % (A) 4 %; MCHC 32.5 g/dL (31.0-37.0); MCV 95.5 fL (80.0-100.0); Mean Platelet Volume 8.7; Monocytes # (A) 0.4 k/uL (0-1.0); Monocytes % (A) 4 %; Neutrophils # (A) 8.1 k/uL (1.3-7.7); Neutrophils % (A) 91 %; Platelet Count 170 k/uL (150-450); RDW 14.9 % (11.5-15.5); WBC 8.9 k/uL (3.8-10.6)
[2022-09-26 03:37] LABS: Calcium 9.7 mg/dL (8.4-10.2); Potassium 3.9 mmol/L (3.5-5.1)
[2022-09-26] MEDS ORDERED: Potassium Replacement Protocol 1 EACH MISC MISCELLANE PRN (03:59)
[2022-09-26] MEDS ORDERED: POTASSIUM BICARBONATE/CIT AC 20 MEQ TABLET.EFF NG-TUBE SCH (04:00)
[2022-09-26 05:44] LABS: Glucose,Whole Blood 121 mg/dL (70-110)
--- NOTE | 2022-09-26 07:16 | XR ---
EXAMINATION TYPE: XR chest 1V portable DATE OF EXAM: 09/26/2022 HISTORY: Shortness of breath. COMPARISON: 09/25/2022 TECHNIQUE: Single view of the chest is submitted. FINDINGS: Endotracheal tube and NG tube have been removed. Persistent patchy basilar densities may reflect resi dual infiltrate and/or atelectasis. The heart is stable. Hilar and mediastinal structures are within normal limits. Degenerative changes are seen of the dorsal spine. IMPRESSION: 1. Endotracheal tube and NG tube have been removed. Persistent patchy basilar densities may reflect residual infiltrate and/or atelectasis.
[2022-09-26] MEDS: BUDESONIDE 1 MG/2 ML NEBU INHALATION SCH ×2 (07:44→21:42)
[2022-09-26] MEDS: FORMOTEROL FUMARATE 20 MCG/2 ML NEBU INHALATION SCH ×2 (07:44→21:43)
[2022-09-26] MEDS: IPRATROPIUM-ALBUTEROL 3 ML NEB INHALATION SCH ×4 (07:45→21:43)
[2022-09-26] MEDS: FUROSEMIDE 20 MG TAB PO SCH (08:35)
[2022-09-26] MEDS: CEFEPIME 2 GM in SODIUM CHLORIDE 0.9% 100 ML IVPB SCH ×2 (08:36→20:30)
[2022-09-26] MEDS: APIXABAN 2.5 MG TABLET PO SCH ×2 (08:36→20:29)
[2022-09-26] MEDS: PANTOPRAZOLE 40 MG/10 ML VIAL IVP SCH (08:37)
[2022-09-26] MEDS: NOREPINEPHRINE 32 MG in SODIUM CHLORIDE 0.9% 218 ML IV SCH (08:41)
--- NOTE | 2022-09-26 09:45 | CDI ---
__Documentation Clarification Form Date: 09/26/2022 09:24:05 AM From: Simran Blanca RN CCDS Admit Date: 09/23/2022 03:08:00 AM Patient Name: Balwinder Lucero Visit Number: [id number] Discharge Date: ATTENTION: The Clinical Documentation Specialists (CDI) and [facility] Coding Staff appreciate your assistance in clarifying documentation. Please respond to the clarification below the line at the bottom and electronically sign. The CDI & [facility] Coding staff will review the response and follow-up if needed. Please note: Queries are made part of the Legal Health Record. If you have any questions, please contact the author of this message via ITS. Dr. Nathanael Kendrick Your patient has the documented symptom of Altered Mental Status 09/23, ED note. Additional clarification regarding the etiology/cause of this symptom is requested. History/Risk Factors: 81-year-old male presents to the ED via EMS from [facility] after being hypoxic on nonrebreather mask and non-responsive. Medical History: COPD, heart failure, recent pneumonia and atrial fibrillation. 09/23, H&P. Clinical Indicators: VSS: 09/23 B/P 90/63; HR 122; RR 22; SpO2 84% BiPAP; 09/23 02:50 Temp 96.3 F Axillary Labs: 09/23 Platelet count 135; lymph 0.91; PT 12.6; INR 1.2; NA 135; Glucose 1222; bnp 1210; Total protein 6.1; Albumin 3.0 CXR: 09/23 Left sided pulmonary infiltrates not significantly different that last exam. Brain CT: 09/23 Cerebral atrophy and chronic small vessel ischemia. No acute intracranial abnormality. ED note, 09/23: He appears to be having a mild COPD exacerbation but nothing substantial to explain the hypoxic episode and altered mental status and unresponsiveness that he presented with. Treatment: 09/23 Intubation Mechanical Ventilator; ICU admission; 09/23 0.9ns 75cc/hr [id number] ; 09/23 Vancomycin IVPB x 1; 09/23 Cefepime IVPB Q8hr; 09/23 Duoneb RT Q2H PRN; 09/23 Solumedrol IV Q6HR; 09/23 Pulmicort RT BID MOOKIE; 09/24 Novolog SQ Q6HR; 09/24 Duoneb RT Q4H MOOKIE. Please clarify the etiology of the symptom of Altered Mental Status: [ ] Metabolic Encephalopathy due to pneumonia [ ] Metabolic Encephalopathy due to (specify cause): [ ] Other condition (please specify) [ ] Unable to determine (Template Last Revised: December 2020) Metabolic Encephalopathy due to pneumonia MTDD
--- NOTE | 2022-09-26 11:24 | P.CRDCN ---
History of Present Illness History of present illness: This is Dr. Mcclellan dictating a consult on this patient The patient was interviewed and examined IMPRESSION / ASSESSMENT: Bilaterally no tinnitus, hypoxic respiratory failure Atrial fibrillation, on anticoagulation Recently preserved LV systolic function Bradycardia, patient on digoxin, recently discontinued PLAN: Continue anticoagulation Continue pulmonary management of bilateral pneumonitis Digoxin has been discontinued Watch for improvement in heart rates Avoid rate control medications TSH HPI patient presented to the hospital for hypoxia and unresponsiveness He was in a [facility] facility receiving IV antibiotics He has a history of atrial fibrillation and is on ELIQUIS Cardiology was consulted for bradycardia ROS: No fever chills or rigors, no cough, phlegm or expectoration, no nausea, vomiting or diarrhea, no hematuria, dysuria, no musculoskeletal complaints, no strokes or seizures, no skin lesions. EXAMINATION: Decreased breath sounds bilaterally with crackles Irregular heart rhythm Blood pressure 137/80 Pulse rate in the 50s REVIEW OF LABS, ECG & MEDICAL DATA Left ventricular ejection fraction 50% Mild RV dilation Twelve-lead EKG shows atrial fibrillation/atrial tachycardia Chest x-ray shows bilateral patchy pulmonary infiltrates Cavitating infiltrate left mid lung field same as before White count 8.9 thousand, hemoglobin 12.7 Platelets normal Creatinine 1.2 Past Medical History Past Medical History: Atrial Flutter, Coronary Artery Disease (CAD), Heart Failure, COPD, GERD/Reflux, Hearing Disorder / Deafness, Hyperlipidemia, Hypertension, Osteoarthritis (OA), Renal Disease, Vascular Disorder Additional Past Medical History / Comment(s): hx. gout, hx. colon polyps, circulation problems in legs, slight decreased kidney function, shingles History of Any Multi-Drug Resistant Organisms: MRSA Date of last positivie culture/infection: 02/14/22 MDRO Source:: Right Thigh Past Surgical History: Cholecystectomy, Heart Catheterization, Heart Catheterization With Stent Additional Past Surgical History / Comment(s): right bone graft to collar bone Past Anesthesia/Blood Transfusion Reactions: No Reported Reaction Date of Last Stent Placement:: 05/2020 Past Psychological History: No Psychological Hx Reported Smoking Status: Former smoker Past Alcohol Use History: None Reported Past Drug Use History: None Reported - Past Family History Mother Family Medical History: No Reported History Medications and Allergies Home Medications Medication Instructions Recorded Confirmed Type Atorvastatin [Lipitor] 20 mg PO HS 10/17/18 09/23/22 History Budesonide/Formoterol Fumarate 2 puff INHALATION RT-BID 10/17/18 09/23/22 History [Symbicort 160-4.5 Mcg Inhaler] Digoxin [Lanoxin] 125 mcg PO DAILY 10/17/18 09/23/22 History Apixaban [Eliquis] 2.5 mg PO BID 06/05/20 09/23/22 History Albuterol Nebulized [Ventolin 2.5 mg INHALATION RT-Q6H PRN 08/28/22 09/23/22 History Nebulized] Furosemide [Lasix] 20 mg PO DAILY 08/28/22 09/23/22 History methocarbamoL [Methocarbamol] 750 mg PO TID PRN 08/28/22 09/23/22 History Cefepime [Maxipime] 2 gm IVPB Q8H #42 each 09/12/22 09/23/22 Rx HYDROcodone/APAP 5-325MG [[place] 1 tab PO QID PRN 3 Days #12 tab 09/13/22 09/23/22 Rx 5-325] Acetaminophen [Tylenol Arthritis] 650 mg PO Q4H PRN 09/23/22 09/23/22 History Clopidogrel [Plavix] 75 mg PO HS 09/23/22 09/23/22 History Health Shake(Unknown) 1 dose PO BID@0700,1600 09/23/22 09/23/22 History metroNIDAZOLE [Flagyl] 500 mg PO Q8H 09/23/22 09/23/22 History Allergies Allergy/AdvReac Type Severity Reaction Status Date / Time Penicillins Allergy Anaphylaxis Verified 09/23/22 13:37 Iodinated Contrast Media AdvReac Diarrhea, Verified 09/23/22 13:37 [Iodinated Contrast- Oral RASH and IV Dye] Physical Exam Vitals: Vital Signs Temp Pulse Resp BP Pulse Ox 09/26/22 10:00 58 L 10 L 137/80 95 09/26/22 09:00 44 L 12 137/80 96 09/26/22 08:06 54 L 09/26/22 08:00 97.6 F 47 L 12 131/71 99 09/26/22 07:56 55 L 09/26/22 07:45 54 L 09/26/22 07:00 43 L 14 131/71 97 09/26/22 06:00 47 L 18 137/76 96 09/26/22 05:00 44 L 13 137/76 93 L 09/26/22 04:00 97.8 F 46 L 15 112/49 97 09/26/22 03:00 48 L 15 112/49 95 09/26/22 02:00 47 L 15 129/63 96 09/26/22 01:00 63 23 96 09/26/22 00:00 97.8 F 52 L 14 97 09/25/22 23:00 46 L 15 96 09/25/22 22:00 60 15 96 09/25/22 21:48 59 L 16 140/86 96 09/25/22 21:00 49 L 15 140/90 95 09/25/22 20:15 60 09/25/22 20:03 57 L 09/25/22 20:00 98.1 F 52 L 15 125/98 99 09/25/22 19:54 60 09/25/22 19:00 49 L 18 96 09/25/22 18:00 49 L 16 97 09/25/22 17:00 57 L 13 97 09/25/22 16:00 97.1 F L 68 14 50 L 09/25/22 15:00 61 15 47 L 09/25/22 14:00 57 L 14 97 09/25/22 13:00 77 14 98 09/25/22 12:00 64 14 98 Intake and Output 09/25/22 09/26/22 09/26/22 22:59 06:59 14:59 Intake Total 124 27 229 Output Total 465 505 200 Balance -341 -688 29 Intake: IV 124 27 109 Cefepime 2 gm In Sodium 100 100 Chloride 0.9% 100 ml @ 200 mls/hr IVPB Q8H [facility] Rx#:[id number] pressure bag 24 27 9 Oral 120 Output: Urine 465 505 200 Other: Voiding Method Indwelling Catheter Indwelling Catheter Indwelling Catheter Weight 75.5 kg ABP, PAP, CO, CI - Last 8 Hours Arterial Blood Pressure 150/65 Arterial Blood Pressure 126/53 Arterial Blood Pressure 135/57 Arterial Blood Pressure 154/62 Arterial Blood Pressure 139/58 Arterial Blood Pressure 142/60 Arterial Blood Pressure 139/59 Results 09/26/22 03:15 09/26/22 03:15 CBC 09/26/22 Range/Units 03:15 WBC 8.9 (3.8-10.6) k/uL RBC 4.10 L (4.30-5.90) m/uL Hgb 12.7 L (13.0-17.5) gm/dL Hct 39.2 (39.0-53.0) % Plt Count 170 (150-450) k/uL Comprehensive Metabolic Panel 09/26/22 Range/Units 03:15 Sodium 141 (137-145) mmol/L Potassium 3.9 (3.5-5.1) mmol/L Chloride 114 H (98-107) mmol/L Carbon Dioxide 23 (22-30) mmol/L BUN 43 H (9-20) mg/dL Creatinine 1.15 (0.66-1.25) mg/dL Glucose 123 H (74-99) mg/dL Calcium 9.7 (8.4-10.2) mg/dL Current Medications Generic Name Dose Route Start Last Admin Trade Name Freq PRN Reason Stop Dose Admin Acetaminophen 650 mg 09/23/22 13:51 Acetaminophen Tab 325 Mg Tab PO Q4H PRN MILD Pain Albuterol/Ipratropium 3 ml 09/23/22 01:02 09/24/22 07:48 Ipratropium-Albuterol 3 Ml Neb INHALATION 3 ml RT-Q2H PRN Administration Shortness Of Breath Or Wheezing Albuterol/Ipratropium 3 ml 09/25/22 16:00 09/26/22 07:45 Ipratropium-Albuterol 3 Ml Neb INHALATION 3 ml RT-QID MOOKIE Administration Apixaban 2.5 mg 09/23/22 21:00 09/26/22 08:36 Apixaban 2.5 Mg Tablet PO 2.5 mg BID MOOKIE Administration Protocol Atorvastatin Calcium 20 mg 09/23/22 21:00 09/25/22 20:35 Atorvastatin 20 Mg Tab PO 20 mg HS MOOKIE Administration Budesonide 1 mg 09/23/22 20:00 09/26/22 07:44 Budesonide 1 Mg/2 Ml Nebu INHALATION 1 mg RT-BID MOOKIE Administration Clopidogrel Bisulfate 75 mg 09/23/22 21:00 09/25/22 20:36 Clopidogrel 75 Mg Tab PO 75 mg HS MOOKIE Administration Dextrose/Water 25 ml 09/24/22 06:19 Dextrose 50% Syringe 50 Ml IVP PER PROTOCOL PRN Hypoglycemia Protocol Dextrose/Water 50 ml 09/24/22 06:19 Dextrose 50% Syringe 50 Ml IVP PER PROTOCOL PRN Hypoglycemia Protocol Formoterol Fumarate 20 mcg 09/23/22 20:00 09/26/22 07:44 Formoterol Fumarate 20 Mcg/2 Ml Nebu INHALATION 20 mcg RT-BID MOOKIE Administration Furosemide 20 mg 09/24/22 09:00 09/26/22 08:35 Furosemide 20 Mg Tab PO 20 mg DAILY MOOKIE Administration Norepinephrine Bitartrate 32 250 mls @ 1.021 mls/hr 09/23/22 00:45 09/26/22 08:41 mg/ Sodium Chloride IV Not Given .Q24H MOOKIE Protocol 0.03 MCG/KG/MIN Cefepime HCl 2 gm/ Sodium 100 mls @ 200 mls/hr 09/25/22 21:00 09/26/22 08:36 Chloride IVPB 200 mls/hr Q12HR MOOKIE Administration Protocol Insulin Aspart 0 unit 09/24/22 06:30 09/26/22 05:47 Insulin Aspart (Novolog) 100 Unit/Ml Vial SQ Not Given Q6HR MOOKIE Protocol Methocarbamol 750 mg 09/23/22 13:51 Methocarbamol 750 Mg Tab PO TID PRN Muscle Pain Miscellaneous Information 1 each 09/24/22 04:54 Potassium Replacement Protocol 1 Each Misc MISCELLANE DAILY PRN Per Protocol Protocol Miscellaneous Information 1 each 09/26/22 03:59 Potassium Replacement Protocol 1 Each Misc MISCELLANE DAILY PRN Per Protocol Protocol Naloxone HCl 0.2 mg 09/23/22 03:06 Naloxone 0.4 Mg/Ml 1 Ml Vial IV Q2M PRN Opioid Reversal Pantoprazole Sodium 40 mg 09/23/22 14:00 09/26/22 08:37 Pantoprazole 40 Mg/10 Ml Vial IVP 40 mg DAILY MOOKIE Administration Intake and Output 09/25/22 09/26/22 09/26/22 22:59 06:59 14:59 Intake Total 124 27 229 Output Total 465 505 200 Balance -341 -478 29 Intake: IV 124 27 109 Cefepime 2 gm In Sodium 100 100 Chloride 0.9% 100 ml @ 200 mls/hr IVPB Q8H [facility] Rx#:[id number] pressure bag 24 27 9 Oral 120 Output: Urine 465 505 200 Other: Voiding Method Indwelling Catheter Indwelling Catheter Indwelling Catheter Weight 75.5 kg 09/26/22 03:15 09/26/22 03:15
[2022-09-26 12:07] LABS: Glucose,Whole Blood 146 mg/dL (70-110)
--- NOTE | 2022-09-26 16:02 | P.PN ---
Subjective Progress Note Date: 09/26/22 81-year-old male, who is brought into the emergency department, on September 23, shortly after midnight, with shortness of breath, mental status changes, and low saturations. The patient had been at a nursing facility, for IV antibiotics, for pneumonia. He was seen earlier today by his family and was doing well. Apparently the nursing staff noted that the patient's breathing had worsened, and his saturations were in the 50s. For that reason, EMS was called, and the patient was brought into the emergency room. Because of his poor mental status, and respiratory decline, he was intubated by Dr. Hanson. The patient was seen today in the emergency department, trauma room 1. He is currently sedated, on propofol at 14 mcg/kg/m, and is receiving norepinephrine at 0.1 mcg/kg/m. His CTA was negative for pulmonary embolism, but did show some infiltrate and cavitation in the left lower lobe. He also had bilateral infiltrates and was started on vancomycin and cefepime. Ventilator settings include the volume assist control, rate 20, tidal volume 450, FiO2 50% PEEP of 5. Blood gases on the same settings, except 60%, show a PaO2 of 135, pCO2 of 38, and a pH is 7.35. White count 5.7, hemoglobin 15.4, hematocrit 45.8, and platelet count 235,000. Sodium 135, potassium 3.6, chlorides 107, CO2 23, BUN 20, creatinine 0.75. Albumin was 3. N-terminal proBNP was 1210. Troponin was less than 0.012. The brain CT showed cerebral atrophy and chronic small vessel ischemia but nothing acute. The chest x-ray showed left-sided pulmonary infiltrates, unchanged from her previous x-ray done on September 13. The CT angiogram was negative for pulmonary embolism, but did show bilateral patchy pulmonary infiltrates at the lung bases, with a cavitary lesion in the left midlung. Again, not much change from prior studies. On today's evaluation of 09/24/2022, the patient remains intubated on mechanical ventilator. The patient arrived to the emergency department yesterday with shortness of breath and altered mentation hypoxemia. Immediately, he was intubated and placed on a mechanical ventilator. This morning, he is sedated and he is on propofol running at 30 mcg/kg/m. He is on IV fluids with normal saline at the rate of 75 mL an hour. He is also off pressors. He was briefly started on pressors yesterday and he was taken off the pressors and the patient is currently maintaining his own blood pressure. He has a femoral triple-lumen catheter on the right and he has a brachial arterial line on the right. He is on a mechanical ventilator. He is on assist control mode at the rate of 20 with a tidal volume of 450 and FiO2 of 40% with a PEEP of 5. His peak airway pressure is around 25. Morning blood gases showed a pH of 7.3 with a pCO2 of 37 and pO2 of 159. His chest x-ray is showing adequate expansion of both lungs. ET tube is in a good location. There is some left perihilar pulmonary infiltrates which are unchanged compared to yesterday. His white cell count of 5.8 with a hemoglobin of 15.7 and a platelet count of 153. Electrolytes are all within normal limits. His coagulation profile is also within normal limits. His repeat Covid 19 testing came back negative knowing that he was in the hospital back in August for a Covid 19 infection treated and discharged home. Urine drug screen is positive for opiates and tricyclics. His troponins were negative and his proBNP level was 1210. He is wetting well-known to me. He has history of COPD and the patient has an FEV1 of 72% of predicted. The patient will maintain on Symbicort on outpatient basis in addition to Ventolin rescue inhaler when necessary. Is a chronic smoker and he quit smoking 2015. Has hypertension, coronary artery disease and he was found to have triple-vessel disease and he was not found to be be a good candidate for bypass surgery. He was given a coronary stent in LAD where there was an 80% proximal LAD lesion and this was done while the patient was being supported by an Impala device. He is known to have peripheral vascular disease, vitamin B12 deficiency. He was having several episodes of syncope for which she was hospitalized and he had an extensive cardiac evaluation and the exact cause for this recurrent syncope was not established. He has previous history paroxysmal atrial fibrillation. CAT scan of the brain showed chronic small vessel ischemia On 09/25/2022, the patient is being seen for a follow-up. Note that the patient underwent a bronchoscopy yesterday and a bronchial lavage of the left upper lobe was done and the results of the pending for now. Meanwhile, this morning, the patient remains on a mechanical ventilator. This morning, I had the patient on assist-control mode at the rate of 20 with a tidal volume of 450 and FiO2 of 30% with a PEEP of 5. The blood gas showed a pH of 7.36 with a pCO2 of 40 and pO2 of 97. The patient is sedated this morning with propofol which is running at 30 microvascular kilogram per minutes. He is on no pressors. IV fluids are at KVO. The patient is receiving vital high protein at the rate of 10 mL an hour. The patient has a white cell count of 8.6 with a hemoglobin 15.3, and a sodium level is at 141 with a potassium level of 3.9 and BUN of 34 with a creatinine of 1.1. The pro calcitonin level was at 0.11. Slight interval increase in the interstitial densities bilaterally. There is some left basilar atelectatic changes. The patient is a PICC line in the left upper extremity and the patient also has a orogastric and orotracheal tube both of the tubes are in good location. The and a microbial cultures are negative. The patient remains on IV cefepime for now. The patient is on bronchodilators. The patient is on IV Solu-Medrol and the patient does not have any significant bronchospasm wheezing or respiratory secretions on today's evaluation. Peak anesthetic pressures are quite low. On today's evaluation of 09/23/2022, patient is being seen for a follow-up. The patient was extubated yesterday without any major difficulties and the patient is currently on 2 L O2 nasal cannula. No specific complaints. No respiratory difficulties. No cough sputum production chest episode wheezing. The patient remains on bronchodilators. The patient remains on steroids. The chest x-ray still showing some vague inflammatory changes from the previously described cavitating left upper lobe and left lower lobe pneumonia. Nevertheless, the patient has no fever, no significant sputum production and the patient's echoes at 3.9 with a hemoglobin of 12.7. The patient was having episodes of sinus bradycardia. For that reason, cardiology is being consulted. Note that the patient was on digoxin. This was discontinued and the level came back less than 0.4. Potassium levels at 3.9. Sodium is at 141. The ends of 43 with a creatinine of 1.1. The patient is somewhat lethargic and sleepy at arousable. Denies having any other specific complaints. No syncope for now and he has had previous episodes of syncope in the past and a cardiology consultation be obtained. Objective - Vital Signs Vital signs: Vital Signs Temp 97.6 F 09/26/22 08:00 Pulse 45 L 09/26/22 15:39 Resp 13 09/26/22 14:00 BP 145/66 09/26/22 14:00 Pulse Ox 96 09/26/22 14:00 FiO2 30 09/25/22 08:00 Intake & Output 09/25/22 09/26/22 09/26/22 18:59 06:59 18:59 Intake Total 188 139 981 Output Total 1080 680 900 Balance -892 -541 81 Weight 75.5 kg 75.5 kg Intake: IV 178 139 121 Cefepime 2 gm In Sodium 100 100 Chloride 0.9% 100 ml @ 200 mls/hr IVPB Q8H [facility] Rx#:[id number] Sodium Chloride 0.9% 1, 145 000 ml @ 75 mls/hr IV . [id number] [facility] Rx#:[id number] pressure bag 33 39 21 Oral 860 Tube Feeding 10 Output: Urine 1080 680 900 Other: Voiding Method Indwelling Catheter Indwelling Catheter Indwelling Catheter ABP, PAP, CO, CI - Last Documented Arterial Blood Pressure 119/50 - Exam No acute distress,currently on 2 L of O2 nasal cannula HEENT examination is grossly unremarkable. Neck supple. Full range of motion. No adenopathy thyromegaly or neck vein distention. Cardiovascular examination reveals regular rhythm rate. S1-S2 normal. No S3 or S4. No discernible murmur noted. Heart sounds are distant. Lungs reveal scattered rhonchi and wheezes. Breath sounds equal. No crackles. Breath sounds are equal bilaterally. Abdomen soft bowel sounds are heard. No masses or tenderness. Extremities are intact. No cyanosis clubbing or edema. Skin is without rash or lesion. Neurologic examination cannot be assessed at this time. - Labs CBC & Chem 7: 09/26/22 03:15 09/26/22 03:15 Labs: Abnormal Lab Results - Last 24 Hours (Table) 09/25/22 09/26/22 09/26/22 Range/Units 18:57 00:13 03:15 RBC 4.10 L (4.30-5.90) m/uL Hgb 12.7 L (13.0-17.5) gm/dL Neutrophils # 8.1 H (1.3-7.7) k/uL Lymphocytes # 0.4 L (1.0-4.8) k/uL Chloride (98-107) mmol/L BUN (9-20) mg/dL Glucose (74-99) mg/dL POC Glucose (mg/dL) 123 H 119 H (70-110) mg/dL 09/26/22 09/26/22 09/26/22 Range/Units 03:15 05:42 12:06 RBC (4.30-5.90) m/uL Hgb (13.0-17.5) gm/dL Neutrophils # (1.3-7.7) k/uL Lymphocytes # (1.0-4.8) k/uL Chloride 114 H (98-107) mmol/L BUN 43 H (9-20) mg/dL Glucose 123 H (74-99) mg/dL POC Glucose (mg/dL) 121 H 146 H (70-110) mg/dL Microbiology - Last 24 Hours (Table) 09/24/22 13:30 Gram Stain - Final Bronchoalviolar Lavage - Left Bronchial Washings Culture - Final Tabitha albicans 09/23/22 00:30 Blood Culture - Preliminary Blood No Growth after 72 hours 09/23/22 00:15 Blood Culture - Preliminary Blood No Growth after 72 hours 09/24/22 13:30 Acid Fast Bacilli Smear - Final Bronchoalviolar Lavage - Left Acid Fast Bacilli Culture - Preliminary Assessment and Plan Plan: Acute hypoxemic respiratory failure, requiring intubation and mechanical ventilation, on 09/23/2022, likely secondary to COPD exacerbation, and pneumonia. The patient underwent a bronchoscopy and bronchial lavage of the left upper lobe and there is also still pending for now. Noted the patient had a cavitating pneumonia involving the left lung on a recent hospitalization and t he patient was receiving IV antibiotics on outpatient basis and comparing the 2 CAT scans of the chest from this current admission a previous admission shows interval improvement.the patient is currently extubated. The patient was extubated on 09/25/2022. Currently on 2 L of oxygen by nasal cannula. Recent admission (08/28- 09/13/22), for acute hypoxemic respiratory failure secondary to left-sided pneumonia, and coronavirus associated pneumonia. History of CAD, with previous stenting. History of atrial flutterfibrillation and current rhythm is atrial fibrillation and the rate is controlled for now sinus bradycardia and the patient was taken off digoxin. Extensive left upper lobe and left lower lobe pneumonia with central cavitation. Patient is bronchoscopy and a bronchial lavage was done yesterday. Note that upon comparing the 2 CAT scans from the most recent admissions, left upper lobe cavitating pneumonia was improving and there was interval decrease in the size of the infiltrate and the cavitation. The patient remains on IV cefepime. History of CHF. The patient's most his echocardiogram from 06/06/2020 showed impaired LV function with an ejection fraction of 35-40% along with borderline concentric LVH, no other valvular abnormalities. Repeat echocardiogram will be needed. History of COPD, from previous tobacco use. The patient is known to have triple-vessel disease and the patient was supposed to undergo bypass surgery, however he was not found to be an appropriate candidate. He was given stent to his LAD as the patient was found to have an 80% proximal LAD lesion. Episodes of recurrent unexplained syncope, could be cardiac History of hyperlipidemia. History of hypertension. Deafness. GERD. History of gout. Plan Patient is currently extubated on 2 L oxygen nasal cannula Discontinue the IV Solu-Medrol Continue bronchodilators Continue IV cefepime IV fluids to KVO Advance diet Keep the patient off digoxin Cardiology consultation regarding the symptomatic bradycardia Continue anticoagulation Echo of the heart showed a preserved LV function with an EF of around 50% We'll continue to follow
[2022-09-26] MEDS: CLOPIDOGREL 75 MG TAB PO SCH (20:29)
[2022-09-26] MEDS: ATORVASTATIN 20 MG TAB PO SCH (20:29)
[2022-09-26 23:56] LABS: Glucose,Whole Blood 126 mg/dL (70-110)
[2022-09-27] MEDS: INSULIN ASPART (NovoLOG) 100 UNIT/ML VIAL SQ SCH ×5 (00:03→23:57)
--- NOTE | 2022-09-27 00:20 | PN ---
PROGRESS NOTE DATE OF SERVICE: 09/26/2022 SUBJECTIVE: This 81-year-old gentleman admitted with bilateral pneumonia and has also had respiratory failure. The patient extubated, patient is still mildly confused. Patient is closely monitored. The patient on bronchodilators, antibiotics, steroids, and other medications. PAST MEDICAL HISTORY: Could not be taken. CURRENT MEDICATIONS: Reviewed include Eliquis, doses and rest of medications noted. REVIEW OF SYSTEMS: Could not be taken. PHYSICAL EXAMINATION: VITAL SIGNS: Pulse is 45, blood pressure , respirations 18. NECK: No JVD. CARDIOVASCULAR: S1, S2. RESPIRATIONS: Few scattered rhonchi. ABDOMEN: Soft. LEGS: No edema. NERVOUS SYSTEM: Diffusely weak. LABS: Reviewed. Chest x-ray reviewed personally. ASSESSMENT: 1. Bilateral pneumonia with acute hypoxic respiratory failure, status post mechanical ventilation. 2. Rule out left-sided lung cavity. 3. Chronic obstructive pulmonary disease. 4. Atrial fibrillation history. 5. Hypertension. 6. Hyperlipidemia. 7. Multiple medical issues. 8. Full code. RECOMMENDATIONS: Recommended to continue current management. Continue with bronchodilators, steroids, antibiotics. Closely follow with Infectious Disease and Pulmonary. Prognosis guarded. Further recommendations to follow. PT/OT evaluation, also evaluate the patient for possible ECF rehab. MMODL / IJN: [id number] /
[2022-09-27] MEDS: NOREPINEPHRINE 32 MG in SODIUM CHLORIDE 0.9% 218 ML IV SCH (01:11)
[2022-09-27 04:47] LABS: Basophils % (A) 0 %; Eosinophils # (A) 0.1 k/uL (0-0.7); Eosinophils % (A) 1 %; HCT 38.4 % (39.0-53.0); HGB 12.7 gm/dL (13.0-17.5); Hypochromasia Slight; Lymphocytes # (A) 1.1 k/uL (1.0-4.8); Lymphocytes % (A) 13 %; MCH 31.5 pg (25.0-35.0); MCHC 33.1 g/dL (31.0-37.0); MCV 95.1 fL (80.0-100.0); Mean Platelet Volume 8.4; Monocytes # (A) 0.7 k/uL (0-1.0); Monocytes % (A) 8 %; Neutrophils # (A) 6.6 k/uL (1.3-7.7); Neutrophils % (A) 77 %; Platelet Count 163 k/uL (150-450); RBC 4.03 m/uL (4.30-5.90); RDW 14.6 % (11.5-15.5); WBC 8.6 k/uL (3.8-10.6)
[2022-09-27 04:54] LABS: Calcium 9.5 mg/dL (8.4-10.2); Potassium 4.2 mmol/L (3.5-5.1)
--- NOTE | 2022-09-27 07:37 | XR ---
EXAMINATION TYPE: XR chest 1V portable DATE OF EXAM: 09/27/2022 COMPARISON: 09/26/2022 HISTORY: Shortness of breath TECHNIQUE: Single frontal view of the chest is obtained. FINDINGS: There is been no change in the small area of interstitial opacity left upper lobe and in t he right lower lobe. These represent either chronic changes or persistent pulmonary edema. Heart is mildly prominent. No pneumothorax or large bowel. The osseous structures are intact. There i s a healed right clavicular fracture. IMPRESSION: No change in the scattered interstitial infiltrates.
[2022-09-27] MEDS: IPRATROPIUM-ALBUTEROL 3 ML NEB INHALATION SCH ×4 (08:24→19:41)
[2022-09-27] MEDS: FORMOTEROL FUMARATE 20 MCG/2 ML NEBU INHALATION SCH ×2 (08:24→19:41)
[2022-09-27] MEDS: BUDESONIDE 1 MG/2 ML NEBU INHALATION SCH ×2 (08:24→19:41)
[2022-09-27] MEDS: PANTOPRAZOLE 40 MG/10 ML VIAL IVP SCH (08:42)
[2022-09-27] MEDS: FUROSEMIDE 20 MG TAB PO SCH (08:42)
[2022-09-27] MEDS: APIXABAN 2.5 MG TABLET PO SCH ×2 (08:42→20:45)
[2022-09-27] MEDS: CEFEPIME 2 GM in SODIUM CHLORIDE 0.9% 100 ML IVPB SCH ×2 (08:43→20:45)
[2022-09-27] MEDS: ACETAMINOPHEN TAB 325 MG TAB PO PRN (08:55)
--- NOTE | 2022-09-27 10:16 | P.PN ---
Subjective HPI patient presented to the hospital for hypoxia and unresponsiveness He was in a [facility] facility receiving IV antibiotics He has a history of atrial fibrillation and is on ELIQUIS Cardiology was consulted for bradycardia Echo: Left ventricular ejection fraction 50% Mild RV dilation Twelve-lead EKG shows atrial fibrillation/atrial tachycardia Chest x-ray shows bilateral patchy pulmonary infiltrates Cavitating infiltrate left mid lung field same as before 09/27 Patient seen and examined. Patient was extubated and currently on nasal c annula. Denies any chest pain or pressure. Denies any shortness breath. Has not been out of bed however denies any lightheadedness. Digoxin was discontinued and heart rates mainly in the 50s. Still having some mild pauses however appears somewhat improved. EXAMINATION: Decreased breath sounds bilaterally with crackles Irregular heart rhythm Frail and chronically ill appearing No edema IMPRESSION / ASSESSMENT: Bilaterally pneumonitis, hypoxic respiratory failure Atrial fibrillation, on anticoagulation Recently preserved LV systolic function Bradycardia, patient on digoxin, recently discontinued, unclear if symptomatic Questionable syncope PLAN: Continue anticoagulation Continue pulmonary management of bilateral pneumonitis Digoxin has been discontinued and appears HR's mildly improved. Monitor for further significant bradycardia and if is the case patient may neen a PPM Watch for improvement in heart rates Avoid rate control medications Objective - Vital Signs Vital signs: Vital Signs Temp 97.9 F 09/27/22 08:00 Pulse 98 09/27/22 09:00 Resp 17 09/27/22 09:00 BP 143/107 09/27/22 09:00 Pulse Ox 95 09/27/22 09:00 FiO2 30 09/25/22 08:00 Intake & Output 09/26/22 09/27/22 09/27/22 18:59 06:59 18:59 Intake Total 1353 486 376 Output Total 1350 1125 170 Balance 3 -639 206 Weight 75.5 kg 82.7 kg Intake: IV 133 36 26 Cefepime 2 gm In Sodium 100 Chloride 0.9% 100 ml @ 200 mls/hr IVPB Q8H [facility] Rx#:[id number] Sodium Chloride 0.9% 1, 20 000 ml @ 75 mls/hr IV . [id number] [facility] Rx#:[id number] pressure bag 33 36 6 Oral 1220 450 350 Output: Urine 1350 1125 170 Other: Voiding Method Indwelling Catheter Indwelling Catheter ABP, PAP, CO, CI - Last Documented Arterial Blood Pressure 118/52 - Labs CBC & Chem 7: 09/27/22 04:30 09/27/22 04:30 Labs: Abnormal Lab Results - Last 24 Hours (Table) 09/26/22 09/26/22 09/27/22 Range/Units 12:06 23:54 04:30 RBC 4.03 L (4.30-5.90) m/uL Hgb 12.7 L (13.0-17.5) gm/dL Hct 38.4 L (39.0-53.0) % Sodium (137-145) mmol/L Chloride (98-107) mmol/L BUN (9-20) mg/dL POC Glucose (mg/dL) 146 H 126 H (70-110) mg/dL 09/27/22 Range/Units 04:30 RBC (4.30-5.90) m/uL Hgb (13.0-17.5) gm/dL Hct (39.0-53.0) % Sodium 135 L (137-145) mmol/L Chloride 109 H (98-107) mmol/L BUN 49 H (9-20) mg/dL POC Glucose (mg/dL) (70-110) mg/dL Microbiology - Last 24 Hours (Table) 09/23/22 00:15 Blood Culture - Preliminary Blood No Growth after 96 hours 09/23/22 00:30 Blood Culture - Preliminary Blood No Growth after 96 hours 09/24/22 13:30 Gram Stain - Final Bronchoalviolar Lavage - Left Bronchial Washings Culture - Final Tabitha albicans
[2022-09-27 11:57] LABS: Glucose,Whole Blood 97 mg/dL (70-110)
--- NOTE | 2022-09-27 14:32 | P.PN ---
Subjective Progress Note Date: 09/27/22 81-year-old male, who is brought into the emergency department, on September 23, shortly after midnight, with shortness of breath, mental status changes, and low saturations. The patient had been at a nursing facility, for IV antibiotics, for pneumonia. He was seen earlier today by his family and was doing well. Apparently the nursing staff noted that the patient's breathing had worsened, and his saturations were in the 50s. For that reason, EMS was called, and the patient was brought into the emergency room. Because of his poor mental status, and respiratory decline, he was intubated by Dr. Hanson. The patient was seen today in the emergency department, trauma room 1. He is currently sedated, on propofol at 14 mcg/kg/m, and is receiving norepinephrine at 0.1 mcg/kg/m. His CTA was negative for pulmonary embolism, but did show some infiltrate and cavitation in the left lower lobe. He also had bilateral infiltrates and was started on vancomycin and cefepime. Ventilator settings include the volume assist control, rate 20, tidal volume 450, FiO2 50% PEEP of 5. Blood gases on the same settings, except 60%, show a PaO2 of 135, pCO2 of 38, and a pH is 7.35. White count 5.7, hemoglobin 15.4, hematocrit 45.8, and platelet count 235,000. Sodium 135, potassium 3.6, chlorides 107, CO2 23, BUN 20, creatinine 0.75. Albumin was 3. N-terminal proBNP was 1210. Troponin was less than 0.012. The brain CT showed cerebral atrophy and chronic small vessel ischemia but nothing acute. The chest x-ray showed left-sided pulmonary infiltrates, unchanged from her previous x-ray done on September 13. The CT angiogram was negative for pulmonary embolism, but did show bilateral patchy pulmonary infiltrates at the lung bases, with a cavitary lesion in the left midlung. Again, not much change from prior studies. On today's evaluation of 09/24/2022, the patient remains intubated on mechanical ventilator. The patient arrived to the emergency department yesterday with shortness of breath and altered mentation hypoxemia. Immediately, he was intubated and placed on a mechanical ventilator. This morning, he is sedated and he is on propofol running at 30 mcg/kg/m. He is on IV fluids with normal saline at the rate of 75 mL an hour. He is also off pressors. He was briefly started on pressors yesterday and he was taken off the pressors and the patient is currently maintaining his own blood pressure. He has a femoral triple-lumen catheter on the right and he has a brachial arterial line on the right. He is on a mechanical ventilator. He is on assist control mode at the rate of 20 with a tidal volume of 450 and FiO2 of 40% with a PEEP of 5. His peak airway pressure is around 25. Morning blood gases showed a pH of 7.3 with a pCO2 of 37 and pO2 of 159. His chest x-ray is showing adequate expansion of both lungs. ET tube is in a good location. There is some left perihilar pulmonary infiltrates which are unchanged compared to yesterday. His white cell count of 5.8 with a hemoglobin of 15.7 and a platelet count of 153. Electrolytes are all within normal limits. His coagulation profile is also within normal limits. His repeat Covid 19 testing came back negative knowing that he was in the hospital back in August for a Covid 19 infection treated and discharged home. Urine drug screen is positive for opiates and tricyclics. His troponins were negative and his proBNP level was 1210. He is wetting well-known to me. He has history of COPD and the patient has an FEV1 of 72% of predicted. The patient will maintain on Symbicort on outpatient basis in addition to Ventolin rescue inhaler when necessary. Is a chronic smoker and he quit smoking 2015. Has hypertension, coronary artery disease and he was found to have triple-vessel disease and he was not found to be be a good candidate for bypass surgery. He was given a coronary stent in LAD where there was an 80% proximal LAD lesion and this was done while the patient was being supported by an Impala device. He is known to have peripheral vascular disease, vitamin B12 deficiency. He was having several episodes of syncope for which she was hospitalized and he had an extensive cardiac evaluation and the exact cause for this recurrent syncope was not established. He has previous history paroxysmal atrial fibrillation. CAT scan of the brain showed chronic small vessel ischemia On 09/25/2022, the patient is being seen for a follow-up. Note that the patient underwent a bronchoscopy yesterday and a bronchial lavage of the left upper lobe was done and the results of the pending for now. Meanwhile, this morning, the patient remains on a mechanical ventilator. This morning, I had the patient on assist-control mode at the rate of 20 with a tidal volume of 450 and FiO2 of 30% with a PEEP of 5. The blood gas showed a pH of 7.36 with a pCO2 of 40 and pO2 of 97. The patient is sedated this morning with propofol which is running at 30 microvascular kilogram per minutes. He is on no pressors. IV fluids are at KVO. The patient is receiving vital high protein at the rate of 10 mL an hour. The patient has a white cell count of 8.6 with a hemoglobin 15.3, and a sodium level is at 141 with a potassium level of 3.9 and BUN of 34 with a creatinine of 1.1. The pro calcitonin level was at 0.11. Slight interval increase in the interstitial densities bilaterally. There is some left basilar atelectatic changes. The patient is a PICC line in the left upper extremity and the patient also has a orogastric and orotracheal tube both of the tubes are in good location. The and a microbial cultures are negative. The patient remains on IV cefepime for now. The patient is on bronchodilators. The patient is on IV Solu-Medrol and the patient does not have any significant bronchospasm wheezing or respiratory secretions on today's evaluation. Peak anesthetic pressures are quite low. On today's evaluation of 09/26/2022, patient is being seen for a follow-up. The patient was extubated yesterday without any major difficulties and the patient is currently on 2 L O2 nasal cannula. No specific complaints. No respiratory difficulties. No cough sputum production chest episode wheezing. The patient remains on bronchodilators. The patient remains on steroids. The chest x-ray still showing some vague inflammatory changes from the previously described cavitating left upper lobe and left lower lobe pneumonia. Nevertheless, the patient has no fever, no significant sputum production and the patient's echoes at 3.9 with a hemoglobin of 12.7. The patient was having episodes of sinus bradycardia. For that reason, cardiology is being consulted. Note that the patient was on digoxin. This was discontinued and the level came back less than 0.4. Potassium levels at 3.9. Sodium is at 141. The ends of 43 with a creatinine of 1.1. The patient is somewhat lethargic and sleepy at arousable. Denies having any other specific complaints. No syncope for now and he has had previous episodes of syncope in the past and a cardiology consultation be obtained. On 09/27/2022, the patient is on 2 L of oxygen by nasal cannula. Still having some episodes of bradycardia and cardiology evaluated the patient. No further intervention was recommended. The patient remained sinus rhythm. Is having sinus bradycardia and the heart rate slows down in the high 50s. He has no respiratory difficulties. On today's of Oxymizer nasal cannula. He had an excellent breakfast this morning. No fever or chills. The white cell count is at 8.6 with a hemoglobin of 12.7 and a platelet count of 163. BUN is a 49 and the creatinine is 1.22. Sodium level is at 135. The patient is awake and alert. He has global her last motor weakness in all 4 extremities. No focal neurological deficits. He remains on IV cefepime regarding a cavitating pneumonia. No reported aspiration. No reported chest pain. The patient remains on oral Lasix 20 mg by mouth daily. Objective - Vital Signs Vital signs: Vital Signs Temp 97.9 F 09/27/22 08:00 Pulse 98 09/27/22 09:00 Resp 17 09/27/22 09:00 BP 143/107 09/27/22 09:00 Pulse Ox 95 09/27/22 09:00 FiO2 30 09/25/22 08:00 Intake & Output 09/26/22 09/27/22 09/27/22 18:59 06:59 18:59 Intake Total 1353 486 376 Output Total 1350 1125 170 Balance 3 -639 206 Weight 75.5 kg 82.7 kg Intake: IV 133 36 26 Cefepime 2 gm In Sodium 100 Chloride 0.9% 100 ml @ 200 mls/hr IVPB Q8H [facility] Rx#:[id number] Sodium Chloride 0.9% 1, 20 000 ml @ 75 mls/hr IV . [id number] [facility] Rx#:[id number] pressure bag 33 36 6 Oral 1220 450 350 Output: Urine 1350 1125 170 Other: Voiding Method Indwelling Catheter Indwelling Catheter ABP, PAP, CO, CI - Last Documented Arterial Blood Pressure 118/52 - Exam No acute distress,currently on 2 L of O2 nasal cannula HEENT examination is grossly unremarkable. Neck supple. Full range of motion. No adenopathy thyromegaly or neck vein distention. Cardiovascular examination reveals regular rhythm rate. S1-S2 normal. No S3 or S4. No discernible murmur noted. Heart sounds are distant. Lungs reveal scattered rhonchi and wheezes. Breath sounds equal. No crackles. Breath sounds are equal bilaterally. Abdomen soft bowel sounds are heard. No masses or tenderness. Extremities are intact. No cyanosis clubbing or edema. Skin is without rash or lesion. Neurologic examination cannot be assessed at this time. - Labs CBC & Chem 7: 09/27/22 04:30 09/27/22 04:30 Labs: Abnormal Lab Results - Last 24 Hours (Table) 09/26/22 09/26/22 09/27/22 Range/Units 12:06 23:54 04:30 RBC 4.03 L (4.30-5.90) m/uL Hgb 12.7 L (13.0-17.5) gm/dL Hct 38.4 L (39.0-53.0) % Sodium (137-145) mmol/L Chloride (98-107) mmol/L BUN (9-20) mg/dL POC Glucose (mg/dL) 146 H 126 H (70-110) mg/dL 09/27/22 Range/Units 04:30 RBC (4.30-5.90) m/uL Hgb (13.0-17.5) gm/dL Hct (39.0-53.0) % Sodium 135 L (137-145) mmol/L Chloride 109 H (98-107) mmol/L BUN 49 H (9-20) mg/dL POC Glucose (mg/dL) (70-110) mg/dL Microbiology - Last 24 Hours (Table) 09/23/22 00:15 Blood Culture - Preliminary Blood No Growth after 96 hours 09/23/22 00:30 Blood Culture - Preliminary Blood No Growth after 96 hours 09/24/22 13:30 Gram Stain - Final Bronchoalviolar Lavage - Left Bronchial Washings Culture - Final Tabitha albicans Assessment and Plan Plan: Acute hypoxemic respiratory failure, requiring intubation and mechanical ventilation, on 09/23/2022, likely secondary to COPD exacerbation, and pneumonia. The patient underwent a bronchoscopy and bronchial lavage of the left upper lobe and there is also still pending for now. Noted the patient had a cavitating pneumonia involving the left lung on a recent hospitalization and the patient was receiving IV antibiotics on outpatient basis and comparing the 2 CAT scans of the chest from this current admission a previous admission shows interval improvement.the patient is currently extubated. The patient was extubated on 09/25/2022. Currently on 2 L of oxygen by nasal cannula. Overall respiratory status remains stable for now. No aspiration. Remains on IV cefepime. Chest x-ray findings are also stable. Recent admission (08/28- 09/13/22), for acute hypoxemic respiratory failure secondary to left-sided pneumonia, and coronavirus associated pneumonia. History of CAD, with previous stenting. History of atrial flutterfibrillation and current rhythm is atrial fibrillation and the rate is controlled for now sinus bradycardia and the patient was taken off digoxin. Extensive left upper lobe and left lower lobe pneumonia with central cavitation. Patient is bronchoscopy and a bronchial lavage was done yesterday. Note that upon comparing the 2 CAT scans from the most recent admissions, left upper lobe cavitating pneumonia was improving and there was interval decrease in the size of the infiltrate and the cavitation. The patient remains on IV cefepime. History of CHF. The patient's most his echocardiogram from 06/06/2020 showed impaired LV function with an ejection fraction of 35-40% along with borderline concentric LVH, no other valvular abnormalities. Repeat echocardiogram will be needed. History of COPD, from previous tobacco use. The patient is known to have triple-vessel disease and the patient was supposed to undergo bypass surgery, however he was not found to be an appropriate candidate. He was given stent to his LAD as the patient was found to have an 80% proximal LAD lesion. Episodes of recurrent unexplained syncope, could be cardiac History of hyperlipidemia. History of hypertension. Deafness. GERD. History of gout. Plan Patient remains on oxygen at 2 L Continue bronchodilators Continue IV cefepime Monitor the cardiac rhythm Cardiology with the patient regarding the episodic bradycardia and no interventions were recommended Echocardiogram shows a preserved LV function The patient is excessive PT as the patient has generalized global weakness in all 4 extremities. Is able to swallow appropriately. Continue anticoagulation with Eliquis 2.5 mg by mouth twice a day. Continue bronchodilators Nonetheless likely coverage. We'll follow, and the patient can be transferred out of the intensive care unit.
[2022-09-27 18:54] LABS: Glucose,Whole Blood 190 mg/dL (70-110)
[2022-09-27] MEDS: CLOPIDOGREL 75 MG TAB PO SCH (20:45)
[2022-09-27] MEDS: ATORVASTATIN 20 MG TAB PO SCH (20:45)
--- NOTE | 2022-09-27 22:26 | P.PN ---
Subjective Progress Note Date: 09/25/22 Principal diagnosis: Cavitatory pneumonia Patient is a 81-year-old male who was recently admitted to this hospital with left-sided cavitating pneumonia question of aspiration patient was getting [facility] Flagyl at the [facility] presenting back to the hospital with worsening shortness of breath patient was in acute respiratory failure and end up getting intubated. Patient is status post bronchoscopy completed on 09/24/2022 and the patient was extubated morning of 09/25/2022 On today's evaluation that is 09/25/2022, the patient remains to be afebrile the patient is hemodynamically stable and not requiring any pressor support, the patient is slightly lethargic and not a good historian no vomiting or diarrhea has been reported Objective - Vital Signs Vital signs: Vital Signs Temp 97.6 F 09/25/22 08:00 Pulse 77 09/25/22 13:00 Resp 14 09/25/22 13:00 BP 125/98 09/25/22 08:00 Pulse Ox 98 09/25/22 13:00 FiO2 30 09/25/22 08:00 Intake & Output 09/24/22 09/25/22 09/25/22 18:59 06:59 18:59 Intake Total 5499.115 4629 164 Output Total 570 630 300 Balance 607.450 521 -136 Weight 75.8 kg 81.2 kg Intake: IV 925 1011 154 Cefepime 2 gm In Sodium 100 Chloride 0.9% 100 ml @ 200 mls/hr IVPB Q8H [facility] Rx#:[id number] Sodium Chloride 0.9% 1, 825 975 145 000 ml @ 75 mls/hr IV . [id number] [facility] Rx#:[id number] pressure bag 36 9 Intake, IV Titration 152.450 Amount propofoL 1,000 mg In 152.450 Empty Bag 1 bag @ 15 MCG/ KG/MIN 6.532 mls/hr IV . [id number] [facility] Rx#:[id number] Oral 0 Tube Feeding 80 10 Other 100 60 Output: Urine 570 630 300 Other: Voiding Method Indwelling Catheter Indwelling Catheter Indwelling Catheter ABP, PAP, CO, CI - Last Documented Arterial Blood Pressure 158/61 - Exam GENERAL DESCRIPTION: An elderly male lying in bed in no distress RESPIRATORY SYSTEM: Unlabored breathing , decreased breath sounds at bases HEART: S1 S2 regular rate and rhythm , ABDOMEN: Soft , no tenderness EXTREMITIES: No edema feet - Labs CBC & Chem 7: 09/27/22 04:30 09/27/22 04:30 Labs: Abnormal Lab Results - Last 24 Hours (Table) 09/24/22 09/24/22 09/24/22 Range/Units 04:13 18:29 23:42 RBC (4.30-5.90) m/uL Neutrophils # (1.3-7.7) k/uL Lymphocytes # (1.0-4.8) k/uL ABG O2 Saturation (94-97) % Chloride (98-107) mmol/L Carbon Dioxide (22-30) mmol/L BUN (9-20) mg/dL Glucose (74-99) mg/dL POC Glucose (mg/dL) 121 H 130 H (70-110) mg/dL Procalcitonin 0.11 H (0.02-0.09) ng/mL 09/25/22 09/25/22 09/25/22 Range/Units 00:41 04:06 04:06 RBC 4.21 L (4.30-5.90) m/uL Neutrophils # 7.9 H (1.3-7.7) k/uL Lymphocytes # 0.4 L (1.0-4.8) k/uL ABG O2 Saturation (94-97) % Chloride 115 H (98-107) mmol/L Carbon Dioxide 21 L (22-30) mmol/L BUN 34 H (9-20) mg/dL Glucose 137 H (74-99) mg/dL POC Glucose (mg/dL) 114 H (70-110) mg/dL Procalcitonin (0.02-0.09) ng/mL 09/25/22 09/25/22 Range/Units 05:38 13:27 RBC (4.30-5.90) m/uL Neutrophils # (1.3-7.7) k/uL Lymphocytes # (1.0-4.8) k/uL ABG O2 Saturation 98.1 H (94-97) % Chloride (98-107) mmol/L Carbon Dioxide (22-30) mmol/L BUN (9-20) mg/dL Glucose (74-99) mg/dL POC Glucose (mg/dL) 143 H (70-110) mg/dL Procalcitonin (0.02-0.09) ng/mL Microbiology - Last 24 Hours (Table) 09/23/22 12:12 Gram Stain - Final Sputum Sputum Culture - Final 09/24/22 13:30 Gram Stain - Preliminary Bronchoalviolar Lavage - Left Bronchial Washings Culture - Preliminary 09/23/22 00:15 Blood Culture - Preliminary Blood No Growth after 48 hours 09/23/22 00:30 Blood Culture - Preliminary Blood No Growth after 48 hours 09/24/22 13:30 Acid Fast Bacilli Culture - Preliminary Bronchoalviolar Lavage - Left 09/24/22 13:30 Fungal Culture - Preliminary Bronchoalviolar Lavage - Left Assessment and Plan (1) Pneumonia Current Visit: Yes Status: Acute Code(s): J18.9 - PNEUMONIA, UNSPECIFIED ORGANISM SNOMED Code(s): 803565622 Plan: 1patient presented to hospital with an episode of unresponsiveness hypoxemia in this patient with multiple comorbidities including COPD recent covid19 and did have right midlung cavitating pneumonia question of aspiration. 2patient is status post bronchoscopy and level watch cultures will be followed. 3patient to continue with the cefepime and vancomycin while waiting for the cultures to be finalized and continue supportive care Time with Patient: Less than 30
--- NOTE | 2022-09-27 22:28 | P.PN ---
Subjective Progress Note Date: 09/26/22 Principal diagnosis: Cavitatory pneumonia Patient is a 81-year-old male who was recently admitted to this hospital with left-sided cavitating pneumonia question of aspiration patient was getting cefepime and Flagyl at the long term presenting back to the hospital with worsening shortness of breath patient was in acute respiratory failure and end up getting intubated. Patient is status post bronchoscopy completed on 09/24/2022 and the patient was extubated morning of 09/25/2022 On today's evaluation that is 09/26/2022, the patient continues to be afebrile the patient is hemodynamically stable and not requiring any pressor support, the patient is breathing comfortably on nasal cannula oxygen denies any chest pain no worsening cough, no abdominal pain or diarrhea Objective - Vital Signs Vital signs: Vital Signs Temp 97.6 F 09/26/22 08:00 Pulse 44 L 09/26/22 12:00 Resp 13 09/26/22 12:00 BP 145/64 09/26/22 12:00 Pulse Ox 97 09/26/22 12:00 FiO2 30 09/25/22 08:00 Intake & Output 09/25/22 09/26/22 09/26/22 18:59 06:59 18:59 Intake Total 188 139 735 Output Total 1080 680 600 Balance -892 -541 135 Weight 75.5 kg 75.5 kg Intake: IV 178 139 115 Cefepime 2 gm In Sodium 100 100 Chloride 0.9% 100 ml @ 200 mls/hr IVPB Q8H [facility] Rx#:[id number] Sodium Chloride 0.9% 1, 145 000 ml @ 75 mls/hr IV . [id number] [facility] Rx#:[id number] pressure bag 33 39 15 Oral 620 Tube Feeding 10 Output: Urine 1080 680 600 Other: Voiding Method Indwelling Catheter Indwelling Catheter Indwelling Catheter ABP, PAP, CO, CI - Last Documented Arterial Blood Pressure 148/61 - Exam GENERAL DESCRIPTION: An elderly male lying in bed in no distress RESPIRATORY SYSTEM: Unlabored breathing , decreased breath sounds at bases HEART: S1 S2 regular rate and rhythm , ABDOMEN: Soft , no tenderness EXTREMITIES: No edema feet - Labs CBC & Chem 7: 09/27/22 04:30 09/27/22 04:30 Labs: Abnormal Lab Results - Last 24 Hours (Table) 09/24/22 09/25/22 09/26/22 Range/Units 13:30 18:57 00:13 RBC (4.30-5.90) m/uL Hgb (13.0-17.5) gm/dL Neutrophils # (1.3-7.7) k/uL Lymphocytes # (1.0-4.8) k/uL Chloride (98-107) mmol/L BUN (9-20) mg/dL Glucose (74-99) mg/dL POC Glucose (mg/dL) 123 H 119 H (70-110) mg/dL Viral Test See Below A 09/26/22 09/26/22 09/26/22 Range/Units 03:15 03:15 05:42 RBC 4.10 L (4.30-5.90) m/uL Hgb 12.7 L (13.0-17.5) gm/dL Neutrophils # 8.1 H (1.3-7.7) k/uL Lymphocytes # 0.4 L (1.0-4.8) k/uL Chloride 114 H (98-107) mmol/L BUN 43 H (9-20) mg/dL Glucose 123 H (74-99) mg/dL POC Glucose (mg/dL) 121 H (70-110) mg/dL Viral Test 09/26/22 Range/Units 12:06 RBC (4.30-5.90) m/uL Hgb (13.0-17.5) gm/dL Neutrophils # (1.3-7.7) k/uL Lymphocytes # (1.0-4.8) k/uL Chloride (98-107) mmol/L BUN (9-20) mg/dL Glucose (74-99) mg/dL POC Glucose (mg/dL) 146 H (70-110) mg/dL Viral Test Microbiology - Last 24 Hours (Table) 09/23/22 00:30 Blood Culture - Preliminary Blood No Growth after 72 hours 09/23/22 00:15 Blood Culture - Preliminary Blood No Growth after 72 hours 09/24/22 13:30 Acid Fast Bacilli Smear - Final Bronchoalviolar Lavage - Left Acid Fast Bacilli Culture - Preliminary 09/23/22 12:12 Gram Stain - Final Sputum Sputum Culture - Final 09/24/22 13:30 Gram Stain - Preliminary Bronchoalviolar Lavage - Left Bronchial Washings Culture - Preliminary Assessment and Plan (1) Pneumonia Current Visit: Yes Status: Acute Code(s): J18.9 - PNEUMONIA, UNSPECIFIED ORGANISM SNOMED Code(s): 835558528 Plan: 1patient presented to hospital with an episode of unresponsiveness hypoxemia in this patient with multiple comorbidities including COPD recent covid19 and did have right midlung cavitating pneumonia question of aspiration. 2patient is status post bronchoscopy and lavage cultures are currently pending. 3patient has shown clinical improvement and the patient will continue with the cefepime and vancomycin while waiting for the cultures to be finalized and continue supportive care Time with Patient: Less than 30
--- NOTE | 2022-09-27 22:29 | P.PN ---
Subjective Progress Note Date: 09/27/22 Principal diagnosis: Cavitatory pneumonia Patient is a 81-year-old male who was recently admitted to this hospital with left-sided cavitating pneumonia question of aspiration patient was getting cefepime and Flagyl at the care home presenting back to the hospital with worsening shortness of breath patient was in acute respiratory failure and end up getting intubated. Patient is status post bronchoscopy completed on 09/24/2022 and the patient was extubated morning of 09/25/2022 On today's evaluation that is 09/27/2022, the patient remains to be afebrile the patient is breathing comfortably on 2 L nasal cannula oxygen denies any chest pain no worsening cough, no abdominal pain or diarrhea Objective - Vital Signs Vital signs: Vital Signs Temp 98.5 F 09/27/22 20:00 Pulse 62 09/27/22 20:03 Resp 17 09/27/22 20:00 BP 127/71 09/27/22 20:00 Pulse Ox 100 09/27/22 20:00 FiO2 30 09/25/22 08:00 Intake & Output 09/27/22 09/27/22 09/28/22 06:59 18:59 06:59 Intake Total 486 1486 349 Output Total 1125 1040 475 Balance -639 446 -126 Weight 82.7 kg Intake: IV 36 296 109 0.9 KVO 190 50 Cefepime 2 gm In Sodium 50 50 Chloride 0.9% 100 ml @ 200 mls/hr IVPB Q12HR [facility] Rx#:[id number] Sodium Chloride 0.9% 1, 20 000 ml @ 75 mls/hr IV . [id number] [facility] Rx#:[id number] pressure bag 36 36 9 Oral 450 1190 240 Output: Urine 1125 1040 475 Other: Voiding Method Indwelling Catheter Indwelling Catheter Indwelling Catheter ABP, PAP, CO, CI - Last Documented Arterial Blood Pressure 128/60 - Exam GENERAL DESCRIPTION: An elderly male lying in bed in no distress RESPIRATORY SYSTEM: Unlabored breathing , decreased breath sounds at bases HEART: S1 S2 regular rate and rhythm , ABDOMEN: Soft , no tenderness EXTREMITIES: No edema feet - Labs CBC & Chem 7: 09/27/22 04:30 09/27/22 04:30 Labs: Abnormal Lab Results - Last 24 Hours (Table) 09/26/22 09/27/22 09/27/22 Range/Units 23:54 04:30 04:30 RBC 4.03 L (4.30-5.90) m/uL Hgb 12.7 L (13.0-17.5) gm/dL Hct 38.4 L (39.0-53.0) % Sodium 135 L (137-145) mmol/L Chloride 109 H (98-107) mmol/L BUN 49 H (9-20) mg/dL POC Glucose (mg/dL) 126 H (70-110) mg/dL 09/27/22 Range/Units 18:53 RBC (4.30-5.90) m/uL Hgb (13.0-17.5) gm/dL Hct (39.0-53.0) % Sodium (137-145) mmol/L Chloride (98-107) mmol/L BUN (9-20) mg/dL POC Glucose (mg/dL) 190 H (70-110) mg/dL Microbiology - Last 24 Hours (Table) 09/23/22 00:15 Blood Culture - Preliminary Blood No Growth after 96 hours 09/23/22 00:30 Blood Culture - Preliminary Blood No Growth after 96 hours Assessment and Plan (1) Pneumonia Current Visit: Yes Status: Acute Code(s): J18.9 - PNEUMONIA, UNSPECIFIED ORGANISM SNOMED Code(s): 037031621 Plan: 1patient presented to hospital with an episode of unresponsiveness hypoxemia in this patient with multiple comorbidities including COPD recent covid19 and did have right midlung cavitating pneumonia question of aspiration. 2patient is status post bronchoscopy and lavage cultures are currently growing Tabitha likely colonizer, blood culture has been negative initial sputum was negative as well 3patient has shown clinical improvement and the patient will continue with the cefepime and continue with supportive care Time with Patient: Less than 30
--- NOTE | 2022-09-27 22:29 | P.PN ---
Subjective This is a pleasant 81 years old male with multiple medical problems presents with acute hypoxic respiratory failure required short course of intubation and mechanical ventilation, currently patient is on 2 L/m of oxygen via nasal cannula and breathing significantly improved. Patient also with some evidence of pneumonia of the left upper lobe and left lower lobe with cavity. He's been on IV cefepime and ID team of the case. Has bradycardia secondary to digoxin, discontinued. Remains on Eliquis home dose of 2.5 mg, Plavix. Physical therapist recommended to rehab, case management social worker consulted Objective - Vital Signs Vital signs: Vital Signs Temp 97.9 F 09/27/22 08:00 Pulse 98 09/27/22 09:00 Resp 17 09/27/22 09:00 BP 143/107 09/27/22 09:00 Pulse Ox 95 09/27/22 09:00 FiO2 30 09/25/22 08:00 Intake & Output 09/26/22 09/27/22 09/27/22 18:59 06:59 18:59 Intake Total 1353 486 376 Output Total 1350 1125 170 Balance 3 -639 206 Weight 75.5 kg 82.7 kg Intake: IV 133 36 26 Cefepime 2 gm In Sodium 100 Chloride 0.9% 100 ml @ 200 mls/hr IVPB Q8H [facility] Rx#:[id number] Sodium Chloride 0.9% 1, 20 000 ml @ 75 mls/hr IV . [id number] [facility] Rx#:[id number] pressure bag 33 36 6 Oral 1220 450 350 Output: Urine 1350 1125 170 Other: Voiding Method Indwelling Catheter Indwelling Catheter ABP, PAP, CO, CI - Last Documented Arterial Blood Pressure 118/52 - Exam -GENERAL: The patient is alert and oriented x3, not in any acute distress. Well developed, well nourished. Generally weak HEENT: Pupils are round and equally reacting to light. EOMI. No scleral icterus. No conjunctival pallor. Normocephalic, atraumatic. No pharyngeal erythema. No thyromegaly. CARDIOVASCULAR: S1 and S2 present. No murmurs, rubs, or gallops. PULMONARY: Chest is clear to auscultation, no wheezing or crackles. ABDOMEN: Soft, nontender, nondistended, normoactive bowel sounds. No palpable organomegaly. MUSCULOSKELETAL: No joint swelling or deformity. EXTREMITIES: No cyanosis, clubbing, or pedal edema. NEUROLOGICAL: Gross neurological examination did not reveal any focal deficits. SKIN: No rashes. no petechiae. - Labs CBC & Chem 7: 09/27/22 04:30 09/27/22 04:30 Labs: Abnormal Lab Results - Last 24 Hours (Table) 09/26/22 09/26/22 09/27/22 Range/Units 12:06 23:54 04:30 RBC 4.03 L (4.30-5.90) m/uL Hgb 12.7 L (13.0-17.5) gm/dL Hct 38.4 L (39.0-53.0) % Sodium (137-145) mmol/L Chloride (98-107) mmol/L BUN (9-20) mg/dL POC Glucose (mg/dL) 146 H 126 H (70-110) mg/dL 09/27/22 Range/Units 04:30 RBC (4.30-5.90) m/uL Hgb (13.0-17.5) gm/dL Hct (39.0-53.0) % Sodium 135 L (137-145) mmol/L Chloride 109 H (98-107) mmol/L BUN 49 H (9-20) mg/dL POC Glucose (mg/dL) (70-110) mg/dL Microbiology - Last 24 Hours (Table) 09/23/22 00:15 Blood Culture - Preliminary Blood No Growth after 96 hours 09/23/22 00:30 Blood Culture - Preliminary Blood No Growth after 96 hours 09/24/22 13:30 Gram Stain - Final Bronchoalviolar Lavage - Left Bronchial Washings Culture - Final Tabitha albicans Assessment and Plan Assessment: Pneumonia of the left upper lobe and left lower lobe with T Acute hypoxic respiratory failure Mild COPD exacerbation Symptomatic bradycardia secondary to digoxin, discontinued History of atrial flutter History of cardiomyopathy with ejection fraction 35-40% History of coronary artery disease status post stent, not found a surgical candidate for bypass Plan: Continue with cefepime Continue with Eliquis Continue with oral Lasix Cardiogenic, infectious disease and cardiology team and the rn case management heart rate Labs and medication were reviewed.. Continue same treatment. Continue with symptomatic treatment. Resume home medication. Monitor lytes and vitals. DVT and GI prophylaxis. Further recommendations as per clinical course of the patient DVT prophylaxis: Eliquis GI Prophylaxis: Ppi PT/OT: subacute rehab Prognosis is guarded
[2022-09-27 23:55] LABS: Glucose,Whole Blood 88 mg/dL (70-110)
[2022-09-28] MEDS: ACETAMINOPHEN TAB 325 MG TAB PO PRN (00:49)
[2022-09-28] MEDS: NOREPINEPHRINE 32 MG in SODIUM CHLORIDE 0.9% 218 ML IV SCH (02:13)
[2022-09-28 05:58] LABS: Glucose,Whole Blood 82 mg/dL (70-110)
[2022-09-28] MEDS: INSULIN ASPART (NovoLOG) 100 UNIT/ML VIAL SQ SCH ×3 (06:01→16:43)
[2022-09-28] MEDS: IPRATROPIUM-ALBUTEROL 3 ML NEB INHALATION SCH ×4 (08:40→19:23)
[2022-09-28] MEDS: FORMOTEROL FUMARATE 20 MCG/2 ML NEBU INHALATION SCH ×2 (08:40→19:23)
[2022-09-28] MEDS: BUDESONIDE 1 MG/2 ML NEBU INHALATION SCH ×2 (08:40→19:23)
[2022-09-28] MEDS: FUROSEMIDE 20 MG TAB PO SCH (09:53)
[2022-09-28] MEDS: PANTOPRAZOLE 40 MG/10 ML VIAL IVP SCH (09:53)
[2022-09-28] MEDS: APIXABAN 2.5 MG TABLET PO SCH ×2 (09:53→21:05)
[2022-09-28] MEDS: CEFEPIME 2 GM in SODIUM CHLORIDE 0.9% 100 ML IVPB SCH ×2 (09:53→21:05)
--- NOTE | 2022-09-28 10:54 | P.PN ---
Subjective This is a pleasant 81 years old male with multiple medical problems presents with acute hypoxic respiratory failure required short course of intubation and mechanical ventilation, currently patient is on 2 L/m of oxygen via nasal cannula and breathing significantly improved. Patient also with some evidence of pneumonia of the left upper lobe and left lower lobe with cavity. He's been on IV cefepime and ID team of the case. Has bradycardia secondary to digoxin, discontinued. Remains on Eliquis home dose of 2.5 mg, Plavix. Physical therapist recommended to rehab, psychiatric social worker supervisor consulted 09/28/2022 Patient generally doing well, he is fully awake and oriented, he feels very weak, subacute rehab has been recommended for him and psychiatric social worker supervisor consulted Patient has good appetite His dyspnea is better, no wheezing. Mentation is at baseline. Bradycardia improved and heart rate 72 this morning, he is saturating 94% on 2 L oxygen. No labs from today Patient is medically stable patient may be considered for discharge once cleared for protocol consult ends. Currently on IV cefepime. Also is on home dose of Eliquis on Plavix. Objective - Vital Signs Vital signs: Vital Signs Temp 98.4 F 09/28/22 09:48 Pulse 72 09/28/22 09:48 Resp 16 09/28/22 09:48 BP 157/97 09/28/22 09:48 Pulse Ox 94 L 09/28/22 09:48 FiO2 30 09/25/22 08:00 Intake & Output 09/27/22 09/28/22 09/28/22 18:59 06:59 18:59 Intake Total 1486 418 354 Output Total 1040 1750 725 Balance 566 -9376 -371 Weight 83 kg Intake: IV 296 178 0.9 KVO 190 110 Cefepime 2 gm In Sodium 50 50 Chloride 0.9% 100 ml @ 200 mls/hr IVPB Q12HR [facility] Rx#:[id number] Sodium Chloride 0.9% 1, 20 000 ml @ 75 mls/hr IV . [id number] [facility] Rx#:[id number] pressure bag 36 18 Oral 1190 240 354 Output: Urine 1040 1750 725 Other: Voiding Method Indwelling Catheter Indwelling Catheter ABP, PAP, CO, CI - Last Documented Arterial Blood Pressure 148/75 - Exam -GENERAL: The patient is alert and oriented x3, not in any acute distress. Well developed, well nourished. Generally weak HEENT: Pupils are round and equally reacting to light. EOMI. No scleral icterus. No conjunctival pallor. Normocephalic, atraumatic. No pharyngeal erythema. No thyromegaly. CARDIOVASCULAR: S1 and S2 present. No murmurs, rubs, or gallops. PULMONARY: Chest is clear to auscultation, no wheezing or crackles. ABDOMEN: Soft, nontender, nondistended, normoactive bowel sounds. No palpable organomegaly. MUSCULOSKELETAL: No joint swelling or deformity. EXTREMITIES: No cyanosis, clubbing, or pedal edema. NEUROLOGICAL: Gross neurological examination did not reveal any focal deficits. SKIN: No rashes. no petechiae. - Labs CBC & Chem 7: 09/27/22 04:30 09/27/22 04:30 Labs: Abnormal Lab Results - Last 24 Hours (Table) 09/27/22 Range/Units 18:53 POC Glucose (mg/dL) 190 H (70-110) mg/dL Microbiology - Last 24 Hours (Table) 09/23/22 00:30 Blood Culture - Preliminary Blood No Growth after 120 hours 09/23/22 00:15 Blood Culture - Preliminary Blood No Growth after 120 hours Assessment and Plan Assessment: Pneumonia of the left upper lobe and left lower lobe with T Acute hypoxic respiratory failure Mild COPD exacerbation Symptomatic bradycardia secondary to digoxin, discontinued History of atrial flutter History of cardiomyopathy with ejection fraction 35-40% History of coronary artery disease status post stent, not found a surgical candidate for bypass Plan: Continue with cefepime Continue with Eliquis Continue with oral Lasix Cardiogenic, infectious disease and cardiology team and the assistant case manager heart rate Labs and medication were reviewed.. Continue same treatment. Continue with symptomatic treatment. Resume home medication. Monitor lytes and vitals. DVT and GI prophylaxis. Further recommendations as per clinical course of the patient DVT prophylaxis: Eliquis GI Prophylaxis: Ppi PT/OT: subacute rehab Prognosis is guarded
[2022-09-28 12:04] LABS: Glucose,Whole Blood 121 mg/dL (70-110)
--- NOTE | 2022-09-28 15:47 | P.PN ---
Subjective HPI patient presented to the hospital for hypoxia and unresponsiveness He was in a [facility] facility receiving IV antibiotics He has a history of atrial fibrillation and is on ELIQUIS Cardiology was consulted for bradycardia Echo: Left ventricular ejection fraction 50% Mild RV dilation Twelve-lead EKG shows atrial fibrillation/atrial tachycardia Chest x-ray shows bilateral patchy pulmonary infiltrates Cavitating infiltrate left mid lung field same as before 09/27 Patient seen and examined. Patient was extubated and currently on nasal c annula. Denies any chest pain or pressure. Denies any shortness breath. Has not been out of bed however denies any lightheadedness. Digoxin was discontinued and heart rates mainly in the 50s. Still having some mild pauses however appears somewhat improved. 09/28 Patient seen and examined. Patient denies any chest pain or pressure. No lightheadedness. Telemetry reviewed with heart rates in the 60s to 80s. EXAMINATION: Decreased breath sounds bilaterally with crackles Irregular heart rhythm Frail and chronically ill appearing No edema IMPRESSION / ASSESSMENT: Bilaterally pneumonitis, hypoxic respiratory failure Atrial fibrillation, on anticoagulation Recently preserved LV systolic function Bradycardia, patient on digoxin, recently discontinued, unclear if symptomatic Questionable syncope PLAN: Continue anticoagulation Continue pulmonary management of bilateral pneumonitis Digoxin has been discontinued and appears HR's improved. No current indication for PPM Avoid rate control medications Objective - Vital Signs Vital signs: Vital Signs Temp 98.1 F 09/28/22 12:57 Pulse 71 09/28/22 12:57 Resp 16 09/28/22 12:57 BP 157/91 09/28/22 12:57 Pulse Ox 93 L 09/28/22 12:57 FiO2 30 09/25/22 08:00 Intake & Output 09/27/22 09/28/22 09/28/22 18:59 06:59 18:59 Intake Total 1486 418 354 Output Total 1040 1750 725 Balance 019 -3907 -277 Weight 83 kg Intake: IV 296 178 0.9 KVO 190 110 Cefepime 2 gm In Sodium 50 50 Chloride 0.9% 100 ml @ 200 mls/hr IVPB Q12HR [facility] Rx#:[id number] Sodium Chloride 0.9% 1, 20 000 ml @ 75 mls/hr IV . [id number] [facility] Rx#:[id number] pressure bag 36 18 Oral 1190 240 354 Output: Urine 1040 1750 725 Other: Voiding Method Indwelling Catheter Indwelling Catheter Indwelling Catheter ABP, PAP, CO, CI - Last Documented Arterial Blood Pressure 148/75 - Labs CBC & Chem 7: 09/27/22 04:30 09/27/22 04:30 Labs: Abnormal Lab Results - Last 24 Hours (Table) 09/27/22 09/28/22 Range/Units 18:53 12:02 POC Glucose (mg/dL) 190 H 121 H (70-110) mg/dL Microbiology - Last 24 Hours (Table) 09/24/22 13:30 Fungal Culture - Preliminary Bronchoalviolar Lavage - Left Tabitha albicans 09/23/22 00:30 Blood Culture - Preliminary Blood No Growth after 120 hours 09/23/22 00:15 Blood Culture - Preliminary Blood No Growth after 120 hours
--- NOTE | 2022-09-28 16:00 | P.PN ---
Subjective Progress Note Date: 09/28/22 81-year-old male, who is brought into the emergency department, on September 23, shortly after midnight, with shortness of breath, mental status changes, and low saturations. The patient had been at a nursing facility, for IV antibiotics, for pneumonia. He was seen earlier today by his family and was doing well. Apparently the nursing staff noted that the patient's breathing had worsened, and his saturations were in the 50s. For that reason, EMS was called, and the patient was brought into the emergency room. Because of his poor mental status, and respiratory decline, he was intubated by Dr. Hanson. The patient was seen today in the emergency department, trauma room 1. He is currently sedated, on propofol at 14 mcg/kg/m, and is receiving norepinephrine at 0.1 mcg/kg/m. His CTA was negative for pulmonary embolism, but did show some infiltrate and cavitation in the left lower lobe. He also had bilateral infiltrates and was started on vancomycin and cefepime. Ventilator settings include the volume assist control, rate 20, tidal volume 450, FiO2 50% PEEP of 5. Blood gases on the same settings, except 60%, show a PaO2 of 135, pCO2 of 38, and a pH is 7.35. White count 5.7, hemoglobin 15.4, hematocrit 45.8, and platelet count 235,000. Sodium 135, potassium 3.6, chlorides 107, CO2 23, BUN 20, creatinine 0.75. Albumin was 3. N-terminal proBNP was 1210. Troponin was less than 0.012. The brain CT showed cerebral atrophy and chronic small vessel ischemia but nothing acute. The chest x-ray showed left-sided pulmonary infiltrates, unchanged from her previous x-ray done on September 13. The CT angiogram was negative for pulmonary embolism, but did show bilateral patchy pulmonary infiltrates at the lung bases, with a cavitary lesion in the left midlung. Again, not much change from prior studies. On today's evaluation of 09/24/2022, the patient remains intubated on mechanical ventilator. The patient arrived to the emergency department yesterday with shortness of breath and altered mentation hypoxemia. Immediately, he was intubated and placed on a mechanical ventilator. This morning, he is sedated and he is on propofol running at 30 mcg/kg/m. He is on IV fluids with normal saline at the rate of 75 mL an hour. He is also off pressors. He was briefly started on pressors yesterday and he was taken off the pressors and the patient is currently maintaining his own blood pressure. He has a femoral triple-lumen catheter on the right and he has a brachial arterial line on the right. He is on a mechanical ventilator. He is on assist control mode at the rate of 20 with a tidal volume of 450 and FiO2 of 40% with a PEEP of 5. His peak airway pressure is around 25. Morning blood gases showed a pH of 7.3 with a pCO2 of 37 and pO2 of 159. His chest x-ray is showing adequate expansion of both lungs. ET tube is in a good location. There is some left perihilar pulmonary infiltrates which are unchanged compared to yesterday. His white cell count of 5.8 with a hemoglobin of 15.7 and a platelet count of 153. Electrolytes are all within normal limits. His coagulation profile is also within normal limits. His repeat Covid 19 testing came back negative knowing that he was in the hospital back in August for a Covid 19 infection treated and discharged home. Urine drug screen is positive for opiates and tricyclics. His troponins were negative and his proBNP level was 1210. He is wetting well-known to me. He has history of COPD and the patient has an FEV1 of 72% of predicted. The patient will maintain on Symbicort on outpatient basis in addition to Ventolin rescue inhaler when necessary. Is a chronic smoker and he quit smoking 2015. Has hypertension, coronary artery disease and he was found to have triple-vessel disease and he was not found to be be a good candidate for bypass surgery. He was given a coronary stent in LAD where there was an 80% proximal LAD lesion and this was done while the patient was being supported by an Impala device. He is known to have peripheral vascular disease, vitamin B12 deficiency. He was having several episodes of syncope for which she was hospitalized and he had an extensive cardiac evaluation and the exact cause for this recurrent syncope was not established. He has previous history paroxysmal atrial fibrillation. CAT scan of the brain showed chronic small vessel ischemia On 09/25/2022, the patient is being seen for a follow-up. Note that the patient underwent a bronchoscopy yesterday and a bronchial lavage of the left upper lobe was done and the results of the pending for now. Meanwhile, this morning, the patient remains on a mechanical ventilator. This morning, I had the patient on assist-control mode at the rate of 20 with a tidal volume of 450 and FiO2 of 30% with a PEEP of 5. The blood gas showed a pH of 7.36 with a pCO2 of 40 and pO2 of 97. The patient is sedated this morning with propofol which is running at 30 microvascular kilogram per minutes. He is on no pressors. IV fluids are at KVO. The patient is receiving vital high protein at the rate of 10 mL an hour. The patient has a white cell count of 8.6 with a hemoglobin 15.3, and a sodium level is at 141 with a potassium level of 3.9 and BUN of 34 with a creatinine of 1.1. The pro calcitonin level was at 0.11. Slight interval increase in the interstitial densities bilaterally. There is some left basilar atelectatic changes. The patient is a PICC line in the left upper extremity and the patient also has a orogastric and orotracheal tube both of the tubes are in good location. The and a microbial cultures are negative. The patient remains on IV cefepime for now. The patient is on bronchodilators. The patient is on IV Solu-Medrol and the patient does not have any significant bronchospasm wheezing or respiratory secretions on today's evaluation. Peak anesthetic pressures are quite low. On today's evaluation of 09/26/2022, patient is being seen for a follow-up. The patient was extubated yesterday without any major difficulties and the patient is currently on 2 L O2 nasal cannula. No specific complaints. No respiratory difficulties. No cough sputum production chest episode wheezing. The patient remains on bronchodilators. The patient remains on steroids. The chest x-ray still showing some vague inflammatory changes from the previously described cavitating left upper lobe and left lower lobe pneumonia. Nevertheless, the patient has no fever, no significant sputum production and the patient's echoes at 3.9 with a hemoglobin of 12.7. The patient was having episodes of sinus bradycardia. For that reason, cardiology is being consulted. Note that the patient was on digoxin. This was discontinued and the level came back less than 0.4. Potassium levels at 3.9. Sodium is at 141. The ends of 43 with a creatinine of 1.1. The patient is somewhat lethargic and sleepy at arousable. Denies having any other specific complaints. No syncope for now and he has had previous episodes of syncope in the past and a cardiology consultation be obtained. On 09/27/2022, the patient is on 2 L of oxygen by nasal cannula. Still having some episodes of bradycardia and cardiology evaluated the patient. No further intervention was recommended. The patient remained sinus rhythm. Is having sinus bradycardia and the heart rate slows down in the high 50s. He has no respiratory difficulties. On today's of Oxymizer nasal cannula. He had an excellent breakfast this morning. No fever or chills. The white cell count is at 8.6 with a hemoglobin of 12.7 and a platelet count of 163. BUN is a 49 and the creatinine is 1.22. Sodium level is at 135. The patient is awake and alert. He has global her last motor weakness in all 4 extremities. No focal neurological deficits. He remains on IV cefepime regarding a cavitating pneumonia. No reported aspiration. No reported chest pain. The patient remains on oral Lasix 20 mg by mouth daily. 09/28/2022, the patient is on the medical floor. The patient got transferred out of the intensive care unit. He is tolerating food well. No new complaints no shortness of breath or worsening of his breathing. His mentation is adequate. He is a bit sluggish and he is overall weak. He remains on IV cefepime. He remains on oral Lasix 20 mg by mouth daily. He is on DuoNeb neb approximately [id number], accommodation Perforomist and Pulmicort neb treatments twice a day and the patient was taken off the steroids. No new labs from today. The patient may need to go back to [facility]. No cardiac arrhythmias. No significant bradyarrhythmias. No loss of consciousness. Objective - Vital Signs Vital signs: Vital Signs Temp 98.1 F 09/28/22 12:57 Pulse 88 09/28/22 15:50 Resp 16 09/28/22 12:57 BP 157/91 09/28/22 12:57 Pulse Ox 93 L 09/28/22 12:57 FiO2 30 09/25/22 08:00 Intake & Output 09/27/22 09/28/22 09/28/22 18:59 06:59 18:59 Intake Total 1486 418 354 Output Total 1040 1750 725 Balance 446 -1332 -371 Weight 83 kg Intake: IV 296 178 0.9 KVO 190 110 Cefepime 2 gm In Sodium 50 50 Chloride 0.9% 100 ml @ 200 mls/hr IVPB Q12HR [facility] Rx#:[id number] Sodium Chloride 0.9% 1, 20 000 ml @ 75 mls/hr IV . [id number] [facility] Rx#:[id number] pressure bag 36 18 Oral 1190 240 354 Output: Urine 1040 1750 725 Other: Voiding Method Indwelling Catheter Indwelling Catheter Indwelling Catheter ABP, PAP, CO, CI - Last Documented Arterial Blood Pressure 148/75 - Exam No acute distress,currently on 2 L of O2 nasal cannula HEENT examination is grossly unremarkable. Neck supple. Full range of motion. No adenopathy thyromegaly or neck vein distention. Cardiovascular examination reveals regular rhythm rate. S1-S2 normal. No S3 or S4. No discernible murmur noted. Heart sounds are distant. Lungs reveal scattered rhonchi and wheezes. Breath sounds equal. No crackles. Breath sounds are equal bilaterally. Abdomen soft bowel sounds are heard. No masses or tenderness. Extremities are intact. No cyanosis clubbing or edema. Skin is without rash or lesion. Neurologic examination cannot be assessed at this time. - Labs CBC & Chem 7: 09/27/22 04:30 09/27/22 04:30 Labs: Abnormal Lab Results - Last 24 Hours (Table) 09/27/22 09/28/22 Range/Units 18:53 12:02 POC Glucose (mg/dL) 190 H 121 H (70-110) mg/dL Microbiology - Last 24 Hours (Table) 09/24/22 13:30 Fungal Culture - Preliminary Bronchoalviolar Lavage - Left Tabitha albicans 09/23/22 00:30 Blood Culture - Preliminary Blood No Growth after 120 hours 09/23/22 00:15 Blood Culture - Preliminary Blood No Growth after 120 hours Assessment and Plan Plan: Acute hypoxemic respiratory failure, requiring intubation and mechanical ventilation, on 09/23/2022, likely secondary to COPD exacerbation, and pneumonia. The patient underwent a bronchoscopy and bronchial lavage of the left upper lobe and there is also still pending for now. Noted the patient had a cavitating pneumonia involving the left lung on a recent hospitalization and the patient was receiving IV antibiotics on outpatient basis and comparing the 2 CAT scans of the chest from this current admission a previous admission shows interval improvement.the patient is currently extubated. The patient was extubated on 09/25/2022. Currently on 2 L of oxygen by nasal cannula. Overall respiratory status remains stable for now. No aspiration. Remains on IV cefepime. Chest x-ray findings are also stable. Recent admission (08/28- 09/13/22), for acute hypoxemic respiratory failure secondary to left-sided pneumonia, and coronavirus associated pneumonia. History of CAD, with previous stenting. History of atrial flutterfibrillation and current rhythm is atrial fibrillation and the rate is controlled for now sinus bradycardia and the patient was taken off digoxin. Extensive left upper lobe and left lower lobe pneumonia with central cavitation. Patient is bronchoscopy and a bronchial lavage was done yesterday. Note that upon comparing the 2 CAT scans from the most recent admissions, left upper lobe cavitating pneumonia was improving and there was interval decrease in the size of the infiltrate and the cavitation. The patient remains on IV cefepime. History of CHF. The patient's most his echocardiogram from 06/06/2020 showed impaired LV function with an ejection fraction of 35-40% along with borderline concentric LVH, no other valvular abnormalities. Repeat echocardiogram will be needed. History of COPD, from previous tobacco use. The patient is known to have triple-vessel disease and the patient was supposed to undergo bypass surgery, however he was not found to be an appropriate candidate. He was given stent to his LAD as the patient was found to have an 80% proximal LAD lesion. Episodes of recurrent unexplained syncope, could be cardiac History of hyperlipidemia. History of hypertension. Deafness. GERD. History of gout. Plan Patient remains on oxygen at 2 L, and the patient's overall clinical condition stable Transferred out of the intensive care unit and the patient is currently on a med ical floor Continue bronchodilators Continue IV cefepime Monitor the cardiac rhythm Cardiology with the patient regarding the episodic bradycardia and no interventions were recommended Echocardiogram shows a preserved LV function The patient is excessive PT as the patient has generalized global weakness in all 4 extremities. Is able to swallow appropriately. Continue anticoagulation with Eliquis 2.5 mg by mouth twice a day. Continue bronchodilators Nonetheless likely coverage. We'll follow, and the patient Will benefit from rehabilitation an ECF placement
[2022-09-28 16:43] LABS: Glucose,Whole Blood 98 mg/dL (70-110)
[2022-09-28 20:16] LABS: Glucose,Whole Blood 150 mg/dL (70-110)
[2022-09-28] MEDS: CLOPIDOGREL 75 MG TAB PO SCH (21:05)
[2022-09-28] MEDS: ATORVASTATIN 20 MG TAB PO SCH (21:05)
[2022-09-29 00:16] LABS: Glucose,Whole Blood 108 mg/dL (70-110)
[2022-09-29] MEDS: INSULIN ASPART (NovoLOG) 100 UNIT/ML VIAL SQ SCH ×4 (00:16→17:15)
[2022-09-29] MEDS: NOREPINEPHRINE 32 MG in SODIUM CHLORIDE 0.9% 218 ML IV SCH (02:47)
[2022-09-29 06:14] LABS: Glucose,Whole Blood 83 mg/dL (70-110)
[2022-09-29] MEDS: FORMOTEROL FUMARATE 20 MCG/2 ML NEBU INHALATION SCH ×2 (08:02→19:16)
[2022-09-29] MEDS: IPRATROPIUM-ALBUTEROL 3 ML NEB INHALATION SCH ×4 (08:02→19:17)
[2022-09-29] MEDS: BUDESONIDE 1 MG/2 ML NEBU INHALATION SCH ×2 (08:02→19:17)
[2022-09-29] MEDS: CEFEPIME 2 GM in SODIUM CHLORIDE 0.9% 100 ML IVPB SCH ×2 (10:06→20:34)
[2022-09-29] MEDS: APIXABAN 2.5 MG TABLET PO SCH ×2 (10:06→20:35)
[2022-09-29] MEDS: FUROSEMIDE 20 MG TAB PO SCH (10:06)
[2022-09-29] MEDS: PANTOPRAZOLE 40 MG/10 ML VIAL IVP SCH (10:06)
--- NOTE | 2022-09-29 11:02 | P.PN ---
Subjective This is a pleasant 81 years old male with multiple medical problems presents with acute hypoxic respiratory failure required short course of intubation and mechanical ventilation, currently patient is on 2 L/m of oxygen via nasal cannula and breathing significantly improved. Patient also with some evidence of pneumonia of the left upper lobe and left lower lobe with cavity. He's been on IV cefepime and ID team of the case. Has bradycardia secondary to digoxin, discontinued. Remains on Eliquis home dose of 2.5 mg, Plavix. Physical therapist recommended to rehab, social services aide consulted 09/28/2022 Patient generally doing well, he is fully awake and oriented, he feels very weak, subacute rehab has been recommended for him and social services aide consulted Patient has good appetite His dyspnea is better, no wheezing. Mentation is at baseline. Bradycardia improved and heart rate 72 this morning, he is saturating 94% on 2 L oxygen. No labs from today Patient is medically stable patient may be considered for discharge once cleared for protocol consult ends. Currently on IV cefepime. Also is on home dose of Eliquis on Plavix. 09/29/2022 patient remains comfortable, sitting up in bed on 2 L oxygen via nasal cannula He tolerates diet wellWith little or no assistance He denies any other GI or abdominal pain. Creatinine 1.2. He remains on cefepime and home dose of Eliquis blood thinner 2.5 mg Patient will be discharged back to his ECF Objective - Vital Signs Vital signs: Vital Signs Temp 97.5 F L 09/29/22 09:53 Pulse 83 09/29/22 09:53 Resp 19 09/29/22 09:53 BP 138/74 09/29/22 09:53 Pulse Ox 96 09/29/22 09:53 FiO2 30 09/25/22 08:00 Intake & Output 09/28/22 09/29/22 09/29/22 18:59 06:59 18:59 Intake Total 1074 658 Output Total 725 3700 900 Balance 349 -3700 -242 Weight 80.5 kg Intake: Oral 1074 658 Output: Urine 725 3700 900 Uretheral (Barton) 900 Other: Voiding Method Indwelling Catheter Indwelling Catheter ABP, PAP, CO, CI - Last Documented Arterial Blood Pressure 148/75 - Exam -GENERAL: The patient is alert and oriented x3, not in any acute distress. Well developed, well nourished. Generally weak HEENT: Pupils are round and equally reacting to light. EOMI. No scleral icterus. No conjunctival pallor. Normocephalic, atraumatic. No pharyngeal erythema. No thyromegaly. CARDIOVASCULAR: S1 and S2 present. No murmurs, rubs, or gallops. PULMONARY: Chest is clear to auscultation, no wheezing or crackles. ABDOMEN: Soft, nontender, nondistended, normoactive bowel sounds. No palpable organomegaly. MUSCULOSKELETAL: No joint swelling or deformity. EXTREMITIES: No cyanosis, clubbing, or pedal edema. NEUROLOGICAL: Gross neurological examination did not reveal any focal deficits. SKIN: No rashes. no petechiae. - Labs CBC & Chem 7: 09/27/22 04:30 09/27/22 04:30 Labs: Abnormal Lab Results - Last 24 Hours (Table) 09/28/22 09/28/22 Range/Units 12:02 20:15 POC Glucose (mg/dL) 121 H 150 H (70-110) mg/dL Microbiology - Last 24 Hours (Table) 09/23/22 00:15 Blood Culture - Final Blood No Growth after 144 hours 09/23/22 00:30 Blood Culture - Final Blood No Growth after 144 hours 09/24/22 13:30 Fungal Culture - Preliminary Bronchoalviolar Lavage - Left Tabitha albicans Assessment and Plan Assessment: Pneumonia of the left upper lobe and left lower lobe with T Acute hypoxic respiratory failure Mild COPD exacerbation Symptomatic bradycardia secondary to digoxin, discontinued History of atrial flutter History of cardiomyopathy with ejection fraction 35-40% History of coronary artery disease status post stent, not found a surgical candidate for bypass Plan: Continue with cefepime Continue with Eliquis Continue with oral Lasix Cardiogenic, infectious disease and cardiology team and the patient case manager heart rate Labs and medication were reviewed.. Continue same treatment. Continue with symptomatic treatment. Resume home medication. Monitor lytes and vitals. DVT and GI prophylaxis. Further recommendations as per clinical course of the patient DVT prophylaxis: Eliquis GI Prophylaxis: Ppi PT/OT: subacute rehab Prognosis is guarded
[2022-09-29 11:53] LABS: Glucose,Whole Blood 118 mg/dL (70-110)
--- NOTE | 2022-09-29 15:41 | P.PN ---
Subjective Progress Note Date: 09/29/22 81-year-old male, who is brought into the emergency department, on September 23, shortly after midnight, with shortness of breath, mental status changes, and low saturations. The patient had been at a nursing facility, for IV antibiotics, for pneumonia. He was seen earlier today by his family and was doing well. Apparently the nursing staff noted that the patient's breathing had worsened, and his saturations were in the 50s. For that reason, EMS was called, and the patient was brought into the emergency room. Because of his poor mental status, and respiratory decline, he was intubated by Dr. Hanson. The patient was seen today in the emergency department, trauma room 1. He is currently sedated, on propofol at 14 mcg/kg/m, and is receiving norepinephrine at 0.1 mcg/kg/m. His CTA was negative for pulmonary embolism, but did show some infiltrate and cavitation in the left lower lobe. He also had bilateral infiltrates and was started on vancomycin and cefepime. Ventilator settings include the volume assist control, rate 20, tidal volume 450, FiO2 50% PEEP of 5. Blood gases on the same settings, except 60%, show a PaO2 of 135, pCO2 of 38, and a pH is 7.35. White count 5.7, hemoglobin 15.4, hematocrit 45.8, and platelet count 235,000. Sodium 135, potassium 3.6, chlorides 107, CO2 23, BUN 20, creatinine 0.75. Albumin was 3. N-terminal proBNP was 1210. Troponin was less than 0.012. The brain CT showed cerebral atrophy and chronic small vessel ischemia but nothing acute. The chest x-ray showed left-sided pulmonary infiltrates, unchanged from her previous x-ray done on September 13. The CT angiogram was negative for pulmonary embolism, but did show bilateral patchy pulmonary infiltrates at the lung bases, with a cavitary lesion in the left midlung. Again, not much change from prior studies. On today's evaluation of 09/24/2022, the patient remains intubated on mechanical ventilator. The patient arrived to the emergency department yesterday with shortness of breath and altered mentation hypoxemia. Immediately, he was intubated and placed on a mechanical ventilator. This morning, he is sedated and he is on propofol running at 30 mcg/kg/m. He is on IV fluids with normal saline at the rate of 75 mL an hour. He is also off pressors. He was briefly started on pressors yesterday and he was taken off the pressors and the patient is currently maintaining his own blood pressure. He has a femoral triple-lumen catheter on the right and he has a brachial arterial line on the right. He is on a mechanical ventilator. He is on assist control mode at the rate of 20 with a tidal volume of 450 and FiO2 of 40% with a PEEP of 5. His peak airway pressure is around 25. Morning blood gases showed a pH of 7.3 with a pCO2 of 37 and pO2 of 159. His chest x-ray is showing adequate expansion of both lungs. ET tube is in a good location. There is some left perihilar pulmonary infiltrates which are unchanged compared to yesterday. His white cell count of 5.8 with a hemoglobin of 15.7 and a platelet count of 153. Electrolytes are all within normal limits. His coagulation profile is also within normal limits. His repeat Covid 19 testing came back negative knowing that he was in the hospital back in August for a Covid 19 infection treated and discharged home. Urine drug screen is positive for opiates and tricyclics. His troponins were negative and his proBNP level was 1210. He is wetting well-known to me. He has history of COPD and the patient has an FEV1 of 72% of predicted. The patient will maintain on Symbicort on outpatient basis in addition to Ventolin rescue inhaler when necessary. Is a chronic smoker and he quit smoking 2015. Has hypertension, coronary artery disease and he was found to have triple-vessel disease and he was not found to be be a good candidate for bypass surgery. He was given a coronary stent in LAD where there was an 80% proximal LAD lesion and this was done while the patient was being supported by an Impala device. He is known to have peripheral vascular disease, vitamin B12 deficiency. He was having several episodes of syncope for which she was hospitalized and he had an extensive cardiac evaluation and the exact cause for this recurrent syncope was not established. He has previous history paroxysmal atrial fibrillation. CAT scan of the brain showed chronic small vessel ischemia On 09/25/2022, the patient is being seen for a follow-up. Note that the patient underwent a bronchoscopy yesterday and a bronchial lavage of the left upper lobe was done and the results of the pending for now. Meanwhile, this morning, the patient remains on a mechanical ventilator. This morning, I had the patient on assist-control mode at the rate of 20 with a tidal volume of 450 and FiO2 of 30% with a PEEP of 5. The blood gas showed a pH of 7.36 with a pCO2 of 40 and pO2 of 97. The patient is sedated this morning with propofol which is running at 30 microvascular kilogram per minutes. He is on no pressors. IV fluids are at KVO. The patient is receiving vital high protein at the rate of 10 mL an hour. The patient has a white cell count of 8.6 with a hemoglobin 15.3, and a sodium level is at 141 with a potassium level of 3.9 and BUN of 34 with a creatinine of 1.1. The pro calcitonin level was at 0.11. Slight interval increase in the interstitial densities bilaterally. There is some left basilar atelectatic changes. The patient is a PICC line in the left upper extremity and the patient also has a orogastric and orotracheal tube both of the tubes are in good location. The and a microbial cultures are negative. The patient remains on IV cefepime for now. The patient is on bronchodilators. The patient is on IV Solu-Medrol and the patient does not have any significant bronchospasm wheezing or respiratory secretions on today's evaluation. Peak anesthetic pressures are quite low. On today's evaluation of 09/26/2022, patient is being seen for a follow-up. The patient was extubated yesterday without any major difficulties and the patient is currently on 2 L O2 nasal cannula. No specific complaints. No respiratory difficulties. No cough sputum production chest episode wheezing. The patient remains on bronchodilators. The patient remains on steroids. The chest x-ray still showing some vague inflammatory changes from the previously described cavitating left upper lobe and left lower lobe pneumonia. Nevertheless, the patient has no fever, no significant sputum production and the patient's echoes at 3.9 with a hemoglobin of 12.7. The patient was having episodes of sinus bradycardia. For that reason, cardiology is being consulted. Note that the patient was on digoxin. This was discontinued and the level came back less than 0.4. Potassium levels at 3.9. Sodium is at 141. The ends of 43 with a creatinine of 1.1. The patient is somewhat lethargic and sleepy at arousable. Denies having any other specific complaints. No syncope for now and he has had previous episodes of syncope in the past and a cardiology consultation be obtained. On 09/27/2022, the patient is on 2 L of oxygen by nasal cannula. Still having some episodes of bradycardia and cardiology evaluated the patient. No further intervention was recommended. The patient remained sinus rhythm. Is having sinus bradycardia and the heart rate slows down in the high 50s. He has no respiratory difficulties. On today's of Oxymizer nasal cannula. He had an excellent breakfast this morning. No fever or chills. The white cell count is at 8.6 with a hemoglobin of 12.7 and a platelet count of 163. BUN is a 49 and the creatinine is 1.22. Sodium level is at 135. The patient is awake and alert. He has global her last motor weakness in all 4 extremities. No focal neurological deficits. He remains on IV cefepime regarding a cavitating pneumonia. No reported aspiration. No reported chest pain. The patient remains on oral Lasix 20 mg by mouth daily. 09/28/2022, the patient is on the medical floor. The patient got transferred out of the intensive care unit. He is tolerating food well. No new complaints no shortness of breath or worsening of his breathing. His mentation is adequate. He is a bit sluggish and he is overall weak. He remains on IV cefepime. He remains on oral Lasix 20 mg by mouth daily. He is on DuoNeb neb approximately [id number], accommodation Perforomist and Pulmicort neb treatments twice a day and the patient was taken off the steroids. No new labs from today. The patient may need to go back to ECF. No cardiac arrhythmias. No significant bradyarrhythmias. No loss of consciousness. 09/29/2022, the patient is stable. No new complaints. Eating very well. Occasional cough and congestion. Continues to be treated with IV cefepime. The patient a cavitating left lung pneumonia which was gradually improving. Othe rwise, no cardiac arrhythmias. No syncope. No respiratory distress and the patient remained on 2 L of oxygen by nasal cannula. Rest of the medication remains unchanged. His profoundly weak and he may benefit from ECF placement. Objective - Vital Signs Vital signs: Vital Signs Temp 98.2 F 09/29/22 13:01 Pulse 68 11/26/22 13:01 Resp 15 09/29/22 13:01 BP 167/72 09/29/22 13:01 Pulse Ox 96 09/29/22 13:01 FiO2 30 09/25/22 08:00 Intake & Output 09/28/22 09/29/22 09/29/22 18:59 06:59 18:59 Intake Total 1074 658 Output Total 725 3700 900 Balance 349 -3700 -242 Weight 80.5 kg Intake: Oral 1074 658 Output: Urine 725 3700 900 Uretheral (Barton) 900 Other: Voiding Method Indwelling Catheter Indwelling Catheter ABP, PAP, CO, CI - Last Documented Arterial Blood Pressure 148/75 - Exam No acute distress,currently on 2 L of O2 nasal cannula HEENT examination is grossly unremarkable. Neck supple. Full range of motion. No adenopathy thyromegaly or neck vein distention. Cardiovascular examination reveals regular rhythm rate. S1-S2 normal. No S3 or S4. No discernible murmur noted. Heart sounds are distant. Lungs reveal scattered rhonchi and wheezes. Breath sounds equal. No crackles. Breath sounds are equal bilaterally. Abdomen soft bowel sounds are heard. No masses or tenderness. Extremities are intact. No cyanosis clubbing or edema. Skin is without rash or lesion. Neurologic examination cannot be assessed at this time. - Labs CBC & Chem 7: 09/27/22 04:30 09/27/22 04:30 Labs: Abnormal Lab Results - Last 24 Hours (Table) 09/28/22 09/29/22 Range/Units 20:15 11:51 POC Glucose (mg/dL) 150 H 118 H (70-110) mg/dL Microbiology - Last 24 Hours (Table) 09/23/22 00:15 Blood Culture - Final Blood No Growth after 144 hours 09/23/22 00:30 Blood Culture - Final Blood No Growth after 144 hours 09/24/22 13:30 Fungal Culture - Preliminary Bronchoalviolar Lavage - Left Tabitha albicans Assessment and Plan Plan: Acute hypoxemic respiratory failure, requiring intubation and mechanical ventilation, on 09/23/2022, likely secondary to COPD exacerbation, and pneumonia. The patient underwent a bronchoscopy and bronchial lavage of the left upper lobe and there is also still pending for now. Noted the patient had a cavitating pneumonia involving the left lung on a recent hospitalization and the patient was receiving IV antibiotics on outpatient basis and comparing the 2 CAT scans of the chest from this current admission a previous admission shows interval improvement.the patient is currently extubated. The patient was extubated on 09/25/2022. Currently on 2 L of oxygen by nasal cannula. Overall respiratory status remains stable for now. No aspiration. Remains on IV cefepime. Chest x-ray findings are also stable. Recent admission (08/28- 09/13/22), for acute hypoxemic respiratory failure secondary to left-sided pneumonia, and coronavirus associated pneumonia. History of CAD, with previous stenting. History of atrial flutterfibrillation and current rhythm is atrial fibrillation and the rate is controlled for now sinus bradycardia and the patient was taken off digoxin. Extensive left upper lobe and left lower lobe pneumonia with central cavitation. Patient is bronchoscopy and a bronchial lavage was done yesterday. Note that upon comparing the 2 CAT scans from the most recent admissions, left upper lobe cavitating pneumonia was improving and there was interval decrease in the size of the infiltrate and the cavitation. The patient remains on IV cefepime. History of CHF. The patient's most his echocardiogram from 06/06/2020 showed impaired LV function with an ejection fraction of 35-40% along with borderline concentric LVH, no other valvular abnormalities. Repeat echocardiogram will be needed. History of COPD, from previous tobacco use. The patient is known to have triple-vessel disease and the patient was supposed to undergo bypass surgery, however he was not found to be an appropriate candidate. He was given stent to his LAD as the patient was found to have an 80% proximal LAD lesion. Episodes of recurrent unexplained syncope, could be cardiac History of hyperlipidemia. History of hypertension. Deafness. GERD. History of gout. Plan Clinically stable Patient remains on oxygen at 2 L, and the patient's overall clinical condition s table Continue bronchodilators Continue IV cefepime Monitor the cardiac rhythm No cardiac arrhythmias notedd Echocardiogram shows a preserved LV function The patient is excessive PT as the patient has generalized global weakness in all 4 extremities. Oral intake is adequate Continue anticoagulation with Eliquis 2.5 mg by mouth twice a day. Continue bronchodilators We'll follow, and the patient Will benefit from rehabilitation an ECF placement
--- NOTE | 2022-09-29 16:03 | P.PN ---
Subjective HPI patient presented to the hospital for hypoxia and unresponsiveness He was in a senior care facility receiving IV antibiotics He has a history of atrial fibrillation and is on ELIQUIS Cardiology was consulted for bradycardia Echo: Left ventricular ejection fraction 50% Mild RV dilation Twelve-lead EKG shows atrial fibrillation/atrial tachycardia Chest x-ray shows bilateral patchy pulmonary infiltrates Cavitating infiltrate left mid lung field same as before 09/27 Patient seen and examined. Patient was extubated and currently on nasal c annula. Denies any chest pain or pressure. Denies any shortness breath. Has not been out of bed however denies any lightheadedness. Digoxin was discontinued and heart rates mainly in the 50s. Still having some mild pauses however appears somewhat improved. 09/28 Patient seen and examined. Patient denies any chest pain or pressure. No lightheadedness. Telemetry reviewed with heart rates in the 60s to 80s. 09/29 Patient seen and examined. Heart rates mainly in the 60s to 80s and remains in sinus with frequent PACs. Denies any chest pain or pressure. No shortness breath. Admits to some hip pain from lying in bed. EXAMINATION: Decreased breath sounds bilaterally with crackles Irregular heart rhythm Frail and chronically ill appearing No edema IMPRESSION / ASSESSMENT: Bilaterally pneumonitis, hypoxic respiratory failure Atrial fibrillation, on anticoagulation Recently preserved LV systolic function Bradycardia, patient on digoxin, recently discontinued, unclear if symptomatic Questionable syncope PLAN: Continue anticoagulation Continue pulmonary management of bilateral pneumonitis Digoxin has been discontinued and appears HR's improved. No current indication for PPM Avoid rate control medications Appears to be relatively stable from cardiac perspective on current meds. No further recs at this time. Please call with questions. Objective - Vital Signs Vital signs: Vital Signs Temp 98.2 F 09/29/22 13:01 Pulse 78 09/29/22 15:39 Resp 15 09/29/22 13:01 BP 167/72 09/29/22 13:01 Pulse Ox 96 09/29/22 13:01 FiO2 30 09/25/22 08:00 Intake & Output 09/28/22 09/29/22 09/29/22 18:59 06:59 18:59 Intake Total 1074 658 Output Total 725 3700 900 Balance 349 3700 -242 Weight 80.5 kg Intake: Oral 1074 658 Output: Urine 725 3700 900 Uretheral (Barton) 900 Other: Voiding Method Indwelling Catheter Indwelling Catheter ABP, PAP, CO, CI - Last Documented Arterial Blood Pressure 148/75 - Labs CBC & Chem 7: 09/27/22 04:30 09/27/22 04:30 Labs: Abnormal Lab Results - Last 24 Hours (Table) 09/28/22 09/29/22 Range/Units 20:15 11:51 POC Glucose (mg/dL) 150 H 118 H (70-110) mg/dL Microbiology - Last 24 Hours (Table) 09/23/22 00:15 Blood Culture - Final Blood No Growth after 144 hours 09/23/22 00:30 Blood Culture - Final Blood No Growth after 144 hours 09/24/22 13:30 Fungal Culture - Preliminary Bronchoalviolar Lavage - Left Tabitha albicans
[2022-09-29] MEDS: methocarbamoL 750 MG TAB PO PRN (17:30)
[2022-09-29] MEDS: CLOPIDOGREL 75 MG TAB PO SCH (20:34)
[2022-09-29] MEDS: ATORVASTATIN 20 MG TAB PO SCH (20:34)
--- NOTE | 2022-09-30 | P.PN ---
Subjective Progress Note Date: 09/28/22 Principal diagnosis: Cavitatory pneumonia Patient is a 81-year-old male who was recently admitted to this hospital with left-sided cavitating pneumonia question of aspiration patient was getting cefepime and Flagyl at the halfway presenting back to the hospital with worsening shortness of breath patient was in acute respiratory failure and end up getting intubated. Patient is status post bronchoscopy completed on 09/24/2022 and the patient was extubated morning of 09/25/2022 On today's evaluation that is 09/28/2022, the patient continues to be afebrile the patient is breathing comfortably on room air, the patient denies any chest pain no worsening cough or sputum production, no abdominal pain or diarrhea Objective - Vital Signs Vital signs: Vital Signs Temp 98.1 F 09/28/22 12:57 Pulse 71 09/28/22 12:57 Resp 16 09/28/22 12:57 BP 157/91 09/28/22 12:57 Pulse Ox 93 L 09/28/22 12:57 FiO2 30 09/25/22 08:00 Intake & Output 09/27/22 09/28/22 09/28/22 18:59 06:59 18:59 Intake Total 1486 418 354 Output Total 1040 1750 725 Balance 567 -9294 -097 Weight 83 kg Intake: IV 296 178 0.9 KVO 190 110 Cefepime 2 gm In Sodium 50 50 Chloride 0.9% 100 ml @ 200 mls/hr IVPB Q12HR [facility] Rx#:[id number] Sodium Chloride 0.9% 1, 20 000 ml @ 75 mls/hr IV . [id number] [facility] Rx#:[id number] pressure bag 36 18 Oral 1190 240 354 Output: Urine 1040 1750 725 Other: Voiding Method Indwelling Catheter Indwelling Catheter ABP, PAP, CO, CI - Last Documented Arterial Blood Pressure 148/75 - Exam GENERAL DESCRIPTION: An elderly male lying in bed in no distress RESPIRATORY SYSTEM: Unlabored breathing , decreased breath sounds at bases HEART: S1 S2 regular rate and rhythm , ABDOMEN: Soft , no tenderness EXTREMITIES: No edema feet - Labs CBC & Chem 7: 09/27/22 04:30 09/27/22 04:30 Labs: Abnormal Lab Results - Last 24 Hours (Table) 09/27/22 09/28/22 Range/Units 18:53 12:02 POC Glucose (mg/dL) 190 H 121 H (70-110) mg/dL Microbiology - Last 24 Hours (Table) 09/24/22 13:30 Fungal Culture - Preliminary Bronchoalviolar Lavage - Left Tbaitha albicans 09/23/22 00:30 Blood Culture - Preliminary Blood No Growth after 120 hours 09/23/22 00:15 Blood Culture - Preliminary Blood No Growth after 120 hours Assessment and Plan (1) Pneumonia Current Visit: Yes Status: Acute Code(s): J18.9 - PNEUMONIA, UNSPECIFIED ORGANISM SNOMED Code(s): 511765780 Plan: 1patient presented to hospital with an episode of unresponsiveness hypoxemia in this patient with multiple comorbidities including COPD recent covid19 and did have right midlung cavitating pneumonia question of aspiration. 2patient is status post bronchoscopy and lavage cultures are currently growing Tabitha likely colonizer, blood culture has been negative initial sputum was negative as well 3patient is slowly clinically improving and the patient will continue with the cefepime and monitor his clinical course closely Time with Patient: Less than 30
--- NOTE | 2022-09-30 00:01 | P.PN ---
Subjective Progress Note Date: 09/29/22 Principal diagnosis: Cavitatory pneumonia Patient is a 81-year-old male who was recently admitted to this hospital with left-sided cavitating pneumonia question of aspiration patient was getting cefepime and Flagyl at the senior care presenting back to the hospital with worsening shortness of breath patient was in acute respiratory failure and end up getting intubated. Patient is status post bronchoscopy completed on 09/24/2022 and the patient was extubated morning of 09/25/2022 On today's evaluation that is 09/29/2022, the patient denies any fever or rigors, the patient is breathing comfortably on room air, the patient denies any chest pain, the patient did have mild dry cough, no abdominal pain or diarrhea Objective - Vital Signs Vital signs: Vital Signs Temp 98.2 F 09/29/22 13:01 Pulse 78 09/29/22 15:39 Resp 15 09/29/22 13:01 BP 167/72 09/29/22 13:01 Pulse Ox 96 09/29/22 13:01 FiO2 30 09/25/22 08:00 Intake & Output 09/28/22 09/29/22 09/29/22 18:59 06:59 18:59 Intake Total 1074 658 Output Total 725 3700 900 Balance 349 -3700 -242 Weight 80.5 kg Intake: Oral 1074 658 Output: Urine 725 3700 900 Uretheral (Barton) 900 Other: Voiding Method Indwelling Catheter Indwelling Catheter Indwelling Catheter ABP, PAP, CO, CI - Last Documented Arterial Blood Pressure 148/75 - Exam GENERAL DESCRIPTION: An elderly male lying in bed in no distress RESPIRATORY SYSTEM: Unlabored breathing , decreased breath sounds at bases HEART: S1 S2 regular rate and rhythm , ABDOMEN: Soft , no tenderness EXTREMITIES: No edema feet - Labs CBC & Chem 7: 09/27/22 04:30 09/27/22 04:30 Labs: Abnormal Lab Results - Last 24 Hours (Table) 09/28/22 09/29/22 Range/Units 20:15 11:51 POC Glucose (mg/dL) 150 H 118 H (70-110) mg/dL Microbiology - Last 24 Hours (Table) 09/23/22 00:15 Blood Culture - Final Blood No Growth after 144 hours 09/23/22 00:30 Blood Culture - Final Blood No Growth after 144 hours Assessment and Plan (1) Pneumonia Current Visit: Yes Status: Acute Code(s): J18.9 - PNEUMONIA, UNSPECIFIED ORGANISM SNOMED Code(s): 156305756 Plan: 1patient presented to hospital with an episode of unresponsiveness hypoxemia in this patient with multiple comorbidities including COPD recent covid19 and did have right midlung cavitating pneumonia question of aspiration. 2patient is status post bronchoscopy and lavage cultures are currently growing Tabitha likely colonizer, blood culture has been negative initial sputum was negative as well 3patient has shown clinical improvement and is currently being treated with the cefepime and continue supportive care Time with Patient: Less than 30
[2022-09-30] MEDS: INSULIN ASPART (NovoLOG) 100 UNIT/ML VIAL SQ SCH ×4 (03:28→17:18)
[2022-09-30] MEDS: NOREPINEPHRINE 32 MG in SODIUM CHLORIDE 0.9% 218 ML IV SCH (03:29)
[2022-09-30 06:45] LABS: Glucose,Whole Blood 79 mg/dL (70-110)
[2022-09-30] MEDS: FORMOTEROL FUMARATE 20 MCG/2 ML NEBU INHALATION SCH ×2 (07:26→19:49)
[2022-09-30] MEDS: BUDESONIDE 1 MG/2 ML NEBU INHALATION SCH ×2 (07:26→19:49)
[2022-09-30] MEDS: IPRATROPIUM-ALBUTEROL 3 ML NEB INHALATION SCH ×4 (07:26→19:49)
[2022-09-30] MEDS: FUROSEMIDE 20 MG TAB PO SCH (08:53)
[2022-09-30] MEDS: APIXABAN 2.5 MG TABLET PO SCH ×2 (08:53→19:53)
[2022-09-30] MEDS: PANTOPRAZOLE 40 MG/10 ML VIAL IVP SCH (08:53)
[2022-09-30] MEDS: CEFEPIME 2 GM in SODIUM CHLORIDE 0.9% 100 ML IVPB SCH ×2 (08:53→19:53)
--- NOTE | 2022-09-30 09:24 | P.PN ---
Subjective This is a pleasant 81 years old male with multiple medical problems presents with acute hypoxic respiratory failure required short course of intubation and mechanical ventilation, currently patient is on 2 L/m of oxygen via nasal cannula and breathing significantly improved. Patient also with some evidence of pneumonia of the left upper lobe and left lower lobe with cavity. He's been on IV cefepime and ID team of the case. Has bradycardia secondary to digoxin, discontinued. Remains on Eliquis home dose of 2.5 mg, Plavix. Physical therapist recommended to rehab, neonatal social worker consulted 09/28/2022 Patient generally doing well, he is fully awake and oriented, he feels very weak, subacute rehab has been recommended for him and neonatal social worker consulted Patient has good appetite His dyspnea is better, no wheezing. Mentation is at baseline. Bradycardia improved and heart rate 72 this morning, he is saturating 94% on 2 L oxygen. No labs from today Patient is medically stable patient may be considered for discharge once cleared for protocol consult ends. Currently on IV cefepime. Also is on home dose of Eliquis on Plavix. 09/29/2022 patient remains comfortable, sitting up in bed on 2 L oxygen via nasal cannula He tolerates diet wellWith little or no assistance He denies any other GI or abdominal pain. Creatinine 1.2. He remains on cefepime and home dose of Eliquis blood thinner 2.5 mg Patient will be discharged back to his ECF 09/30/2022 No change in clinical status Vitals stable Labs reviewed He remains on IV cefepime and home dose of Eliquis and Plavix. Plan to discharge to rehab Real Estate Broker signed off the case. And his rate is controlled currently Objective - Vital Signs Vital signs: Vital Signs Temp 97.6 F 09/30/22 08:45 Pulse 68 09/30/22 08:45 Resp 18 09/30/22 08:45 BP 153/67 09/30/22 08:45 Pulse Ox 93 L 09/30/22 08:45 FiO2 30 09/25/22 08:00 Intake & Output 09/29/22 09/30/22 09/30/22 18:59 06:59 18:59 Intake Total 2158 Output Total 900 1450 Balance 1258 -1450 Intake: IV 1500 Cefepime 2 gm In Sodium 1500 Chloride 0.9% 100 ml @ 200 mls/hr IVPB Q12HR [facility] Rx#:[id number] Oral 658 Output: Urine 900 1450 Uretheral ([facility]) 900 900 Other: Voiding Method Indwelling Catheter External Catheter ABP, PAP, CO, CI - Last Documented Arterial Blood Pressure 148/75 - Exam -GENERAL: The patient is alert and oriented x3, not in any acute distress. Well developed, well nourished. Generally weak HEENT: Pupils are round and equally reacting to light. EOMI. No scleral icterus. No conjunctival pallor. Normocephalic, atraumatic. No pharyngeal erythema. No thyromegaly. CARDIOVASCULAR: S1 and S2 present. No murmurs, rubs, or gallops. PULMONARY: Chest is clear to auscultation, no wheezing or crackles. ABDOMEN: Soft, nontender, nondistended, normoactive bowel sounds. No palpable organomegaly. MUSCULOSKELETAL: No joint swelling or deformity. EXTREMITIES: No cyanosis, clubbing, or pedal edema. NEUROLOGICAL: Gross neurological examination did not reveal any focal deficits. SKIN: No rashes. no petechiae. - Labs CBC & Chem 7: 09/27/22 04:30 09/27/22 04:30 Labs: Abnormal Lab Results - Last 24 Hours (Table) 09/29/22 Range/Units 11:51 POC Glucose (mg/dL) 118 H (70-110) mg/dL Assessment and Plan Assessment: Pneumonia of the left upper lobe and left lower lobe with T Acute hypoxic respiratory failure Mild COPD exacerbation Symptomatic bradycardia secondary to digoxin, discontinued History of atrial flutter History of cardiomyopathy with ejection fraction 35-40% History of coronary artery disease status post stent, not found a surgical candidate for bypass Plan: Continue with cefepime Continue with Eliquis Continue with oral Lasix Cardiogenic, infectious disease and cardiology team and the telephonic case manager heart rate Labs and medication were reviewed.. Continue same treatment. Continue with symptomatic treatment. Resume home medication. Monitor lytes and vitals. DVT and GI prophylaxis. Further recommendations as per clinical course of the patient DVT prophylaxis: Eliquis GI Prophylaxis: Ppi PT/OT: subacute rehab Prognosis is guarded
--- NOTE | 2022-09-30 12:26 | P.PN ---
Subjective Progress Note Date: 09/30/22 81-year-old male, who is brought into the emergency department, on September 23, shortly after midnight, with shortness of breath, mental status changes, and low saturations. The patient had been at a nursing facility, for IV antibiotics, for pneumonia. He was seen earlier today by his family and was doing well. Apparently the nursing staff noted that the patient's breathing had worsened, and his saturations were in the 50s. For that reason, EMS was called, and the patient was brought into the emergency room. Because of his poor mental status, and respiratory decline, he was intubated by Dr. Hanson. The patient was seen today in the emergency department, trauma room 1. He is currently sedated, on propofol at 14 mcg/kg/m, and is receiving norepinephrine at 0.1 mcg/kg/m. His CTA was negative for pulmonary embolism, but did show some infiltrate and cavitation in the left lower lobe. He also had bilateral infiltrates and was started on vancomycin and cefepime. Ventilator settings include the volume assist control, rate 20, tidal volume 450, FiO2 50% PEEP of 5. Blood gases on the same settings, except 60%, show a PaO2 of 135, pCO2 of 38, and a pH is 7.35. White count 5.7, hemoglobin 15.4, hematocrit 45.8, and platelet count 235,000. Sodium 135, potassium 3.6, chlorides 107, CO2 23, BUN 20, creatinine 0.75. Albumin was 3. N-terminal proBNP was 1210. Troponin was less than 0.012. The brain CT showed cerebral atrophy and chronic small vessel ischemia but nothing acute. The chest x-ray showed left-sided pulmonary infiltrates, unchanged from her previous x-ray done on September 13. The CT angiogram was negative for pulmonary embolism, but did show bilateral patchy pulmonary infiltrates at the lung bases, with a cavitary lesion in the left midlung. Again, not much change from prior studies. On today's evaluation of 09/24/2022, the patient remains intubated on mechanical ventilator. The patient arrived to the emergency department yesterday with shortness of breath and altered mentation hypoxemia. Immediately, he was intubated and placed on a mechanical ventilator. This morning, he is sedated and he is on propofol running at 30 mcg/kg/m. He is on IV fluids with normal saline at the rate of 75 mL an hour. He is also off pressors. He was briefly started on pressors yesterday and he was taken off the pressors and the patient is currently maintaining his own blood pressure. He has a femoral triple-lumen catheter on the right and he has a brachial arterial line on the right. He is on a mechanical ventilator. He is on assist control mode at the rate of 20 with a tidal volume of 450 and FiO2 of 40% with a PEEP of 5. His peak airway pressure is around 25. Morning blood gases showed a pH of 7.3 with a pCO2 of 37 and pO2 of 159. His chest x-ray is showing adequate expansion of both lungs. ET tube is in a good location. There is some left perihilar pulmonary infiltrates which are unchanged compared to yesterday. His white cell count of 5.8 with a hemoglobin of 15.7 and a platelet count of 153. Electrolytes are all within normal limits. His coagulation profile is also within normal limits. His repeat Covid 19 testing came back negative knowing that he was in the hospital back in August for a Covid 19 infection treated and discharged home. Urine drug screen is positive for opiates and tricyclics. His troponins were negative and his proBNP level was 1210. He is wetting well-known to me. He has history of COPD and the patient has an FEV1 of 72% of predicted. The patient will maintain on Symbicort on outpatient basis in addition to Ventolin rescue inhaler when necessary. Is a chronic smoker and he quit smoking 2015. Has hypertension, coronary artery disease and he was found to have triple-vessel disease and he was not found to be be a good candidate for bypass surgery. He was given a coronary stent in LAD where there was an 80% proximal LAD lesion and this was done while the patient was being supported by an Impala device. He is known to have peripheral vascular disease, vitamin B12 deficiency. He was having several episodes of syncope for which she was hospitalized and he had an extensive cardiac evaluation and the exact cause for this recurrent syncope was not established. He has previous history paroxysmal atrial fibrillation. CAT scan of the brain showed chronic small vessel ischemia On 09/25/2022, the patient is being seen for a follow-up. Note that the patient underwent a bronchoscopy yesterday and a bronchial lavage of the left upper lobe was done and the results of the pending for now. Meanwhile, this morning, the patient remains on a mechanical ventilator. This morning, I had the patient on assist-control mode at the rate of 20 with a tidal volume of 450 and FiO2 of 30% with a PEEP of 5. The blood gas showed a pH of 7.36 with a pCO2 of 40 and pO2 of 97. The patient is sedated this morning with propofol which is running at 30 microvascular kilogram per minutes. He is on no pressors. IV fluids are at KVO. The patient is receiving vital high protein at the rate of 10 mL an hour. The patient has a white cell count of 8.6 with a hemoglobin 15.3, and a sodium level is at 141 with a potassium level of 3.9 and BUN of 34 with a creatinine of 1.1. The pro calcitonin level was at 0.11. Slight interval increase in the interstitial densities bilaterally. There is some left basilar atelectatic changes. The patient is a PICC line in the left upper extremity and the patient also has a orogastric and orotracheal tube both of the tubes are in good location. The and a microbial cultures are negative. The patient remains on IV cefepime for now. The patient is on bronchodilators. The patient is on IV Solu-Medrol and the patient does not have any significant bronchospasm wheezing or respiratory secretions on today's evaluation. Peak anesthetic pressures are quite low. On today's evaluation of 09/26/2022, patient is being seen for a follow-up. The patient was extubated yesterday without any major difficulties and the patient is currently on 2 L O2 nasal cannula. No specific complaints. No respiratory difficulties. No cough sputum production chest episode wheezing. The patient remains on bronchodilators. The patient remains on steroids. The chest x-ray still showing some vague inflammatory changes from the previously described cavitating left upper lobe and left lower lobe pneumonia. Nevertheless, the patient has no fever, no significant sputum production and the patient's echoes at 3.9 with a hemoglobin of 12.7. The patient was having episodes of sinus bradycardia. For that reason, cardiology is being consulted. Note that the patient was on digoxin. This was discontinued and the level came back less than 0.4. Potassium levels at 3.9. Sodium is at 141. The ends of 43 with a creatinine of 1.1. The patient is somewhat lethargic and sleepy at arousable. Denies having any other specific complaints. No syncope for now and he has had previous episodes of syncope in the past and a cardiology consultation be obtained. On 09/27/2022, the patient is on 2 L of oxygen by nasal cannula. Still having some episodes of bradycardia and cardiology evaluated the patient. No further intervention was recommended. The patient remained sinus rhythm. Is having sinus bradycardia and the heart rate slows down in the high 50s. He has no respiratory difficulties. On today's of Oxymizer nasal cannula. He had an excellent breakfast this morning. No fever or chills. The white cell count is at 8.6 with a hemoglobin of 12.7 and a platelet count of 163. BUN is a 49 and the creatinine is 1.22. Sodium level is at 135. The patient is awake and alert. He has global her last motor weakness in all 4 extremities. No focal neurological deficits. He remains on IV cefepime regarding a cavitating pneumonia. No reported aspiration. No reported chest pain. The patient remains on oral Lasix 20 mg by mouth daily. 09/28/2022, the patient is on the medical floor. The patient got transferred out of the intensive care unit. He is tolerating food well. No new complaints no shortness of breath or worsening of his breathing. His mentation is adequate. He is a bit sluggish and he is overall weak. He remains on IV cefepime. He remains on oral Lasix 20 mg by mouth daily. He is on DuoNeb neb approximately [id number], accommodation Perforomist and Pulmicort neb treatments twice a day and the patient was taken off the steroids. No new labs from today. The patient may need to go back to ECF. No cardiac arrhythmias. No significant bradyarrhythmias. No loss of consciousness. 09/29/2022, the patient is stable. No new complaints. Eating very well. Occasional cough and congestion. Continues to be treated with IV cefepime. The patient a cavitating left lung pneumonia which was gradually improving. Othe rwise, no cardiac arrhythmias. No syncope. No respiratory distress and the patient remained on 2 L of oxygen by nasal cannula. Rest of the medication remains unchanged. His profoundly weak and he may benefit from ECF placement. 09/30/2022, no new complaints. Resting comfortably in bed. He currently on room air oxygen. Remains on IV cefepime. The plan is to send this patient to [facility] on tomorrow. No syncope. No chest pain. No new labs for today Objective - Vital Signs Vital signs: Vital Signs Temp 97.9 F 09/30/22 12:14 Pulse 85 09/30/22 12:14 Resp 16 09/30/22 12:14 BP 139/67 09/30/22 12:14 Pulse Ox 94 L 09/30/22 12:14 FiO2 30 09/25/22 08:00 Intake & Output 09/29/22 09/30/22 09/30/22 18:59 06:59 18:59 Intake Total 2158 358 Output Total 900 1450 Balance 1258 -1450 358 Intake: IV 1500 Cefepime 2 gm In Sodium 1500 Chloride 0.9% 100 ml @ 200 mls/hr IVPB Q12HR [facility] Rx#:[id number] Oral 658 358 Output: Urine 900 1450 Uretheral ([facility]) 900 900 Other: Voiding Method Indwelling Catheter External Catheter External Catheter ABP, PAP, CO, CI - Last Documented Arterial Blood Pressure 148/75 - Exam No acute distress,currently on 2 L of O2 nasal cannula HEENT examination is grossly unremarkable. Neck supple. Full range of motion. No adenopathy thyromegaly or neck vein distention. Cardiovascular examination reveals regular rhythm rate. S1-S2 normal. No S3 or S4. No discernible murmur noted. Heart sounds are distant. Lungs reveal scattered rhonchi and wheezes. Breath sounds equal. No crackles. Breath sounds are equal bilaterally. Abdomen soft bowel sounds are heard. No masses or tenderness. Extremities are intact. No cyanosis clubbing or edema. Skin is without rash or lesion. Neurologic examination cannot be assessed at this time. - Labs CBC & Chem 7: 09/27/22 04:30 09/27/22 04:30 Assessment and Plan Plan: Acute hypoxemic respiratory failure, requiring intubation and mechanical ventilation, on 09/23/2022, likely secondary to COPD exacerbation, and pneumonia. The patient underwent a bronchoscopy and bronchial lavage of the left upper lobe and there is also still pending for now. Noted the patient had a cavitating pneumonia involving the left lung on a recent hospitalization and the patient was receiving IV antibiotics on outpatient basis and comparing the 2 CAT scans of the chest from this current admission a previous admission shows interval improvement.the patient is currently extubated. The patient was extubated on 09/25/2022. Currently on 2 L of oxygen by nasal cannula. Overall respiratory status remains stable for now. No aspiration. Remains on IV cefepime. Chest x-ray findings are also stable. Recent admission (08/28- 09/13/22), for acute hypoxemic respiratory failure secondary to left-sided pneumonia, and coronavirus associated pneumonia. History of CAD, with previous stenting. History of atrial flutterfibrillation and current rhythm is atrial fibrillation and the rate is controlled for now sinus bradycardia and the patient was taken off digoxin. Extensive left upper lobe and left lower lobe pneumonia with central cavitation. Patient is bronchoscopy and a bronchial lavage was done yesterday. Note that upon comparing the 2 CAT scans from the most recent admissions, left upper lobe cavitating pneumonia was improving and there was interval decrease in the size of the infiltrate and the cavitation. The patient remains on IV cefepime. History of CHF. The patient's most his echocardiogram from 06/06/2020 showed impaired LV function with an ejection fraction of 35-40% along with borderline concentric LVH, no other valvular abnormalities. Repeat echocardiogram will be needed. History of COPD, from previous tobacco use. The patient is known to have triple-vessel disease and the patient was supposed to undergo bypass surgery, however he was not found to be an appropriate candidate. He was given stent to his LAD as the patient was found to have an 80% proximal LAD lesion. Episodes of recurrent unexplained syncope, could be cardiac History of hyperlipidemia. History of hypertension. Deafness. GERD. History of gout. Plan Clinically stable Patient is currently on room air oxygen Continue bronchodilators Continue IV cefepime Monitor the cardiac rhythm No cardiac arrhythmias notedd Echocardiogram shows a preserved LV function The patient is excessive PT as the patient has generalized global weakness in all 4 extremities. Oral intake is adequate Continue anticoagulation with Eliquis 2.5 mg by mouth twice a day. Continue bronchodilators We'll follow, and the patient the patient is going to [facility] hopefully by tomorrow. We'll see him on outpatient basis Pulmonary critical care services will sign off
[2022-09-30 14:32] LABS: Magnesium 1.8 mg/dL (1.6-2.3); Potassium 4.6 mmol/L (3.5-5.1)
--- NOTE | 2022-09-30 15:43 | P.PN ---
Subjective Progress Note Date: 09/30/22 Principal diagnosis: Cavitatory pneumonia Patient is a 81-year-old male who was recently admitted to this hospital with left-sided cavitating pneumonia question of aspiration patient [facility] presenting back to the hospital with worsening shortness of breath patient was in acute respiratory failure and end up getting intubated. Patient is status post bronchoscopy completed on 09/24/2022 and the patient was extubated morning of 09/25/2022 On today's evaluation that is 09/30/2022, the patient remains to be afebrile, the patient is breathing comfortably on room air, the patient denies any chest pain, the patient did have episodes of coughing but no sputum production no nausea no vomiting no abdominal pain no diarrhea Objective - Vital Signs Vital signs: Vital Signs Temp 97.9 F 09/30/22 12:14 Pulse 84 09/30/22 14:51 Resp 16 09/30/22 12:14 BP 139/67 09/30/22 12:14 Pulse Ox 94 L 09/30/22 12:14 FiO2 30 09/25/22 08:00 Intake & Output 09/29/22 09/30/22 09/30/22 18:59 06:59 18:59 Intake Total 2158 358 Output Total 900 1450 300 Balance 1258 -1450 58 Intake: IV 1500 Cefepime 2 gm In Sodium 1500 Chloride 0.9% 100 ml @ 200 mls/hr IVPB Q12HR [facility] Rx#:[id number] Oral 658 358 Output: Urine 900 1450 300 Uretheral ([facility]) 900 900 Other: Voiding Method Indwelling Catheter External Catheter External Catheter ABP, PAP, CO, CI - Last Documented Arterial Blood Pressure 148/75 - Exam GENERAL DESCRIPTION: An elderly male lying in bed in no distress RESPIRATORY SYSTEM: Unlabored breathing , decreased breath sounds at bases HEART: S1 S2 regular rate and rhythm , ABDOMEN: Soft , no tenderness EXTREMITIES: No edema feet - Labs CBC & Chem 7: 09/27/22 04:30 09/30/22 13:57 Assessment and Plan (1) Pneumonia Current Visit: Yes Status: Acute Code(s): J18.9 - PNEUMONIA, UNSPECIFIED ORGANISM SNOMED Code(s): 761068872 Plan: 1patient presented to hospital with an episode of unresponsiveness hypoxemia in this patient with multiple comorbidities including COPD recent covid19 and did have right midlung cavitating pneumonia question of aspiration. 2patient is status post bronchoscopy and lavage cultures are currently growing Tabitha likely colonizer, blood culture has been negative initial sputum was negative as well 3patient is slowly clinically improving and will continue with the cefepime hopefully transitioned to oral antibiotics on discharged Time with Patient: Less than 30
[2022-09-30] MEDS: ATORVASTATIN 20 MG TAB PO SCH (19:53)
[2022-09-30] MEDS: CLOPIDOGREL 75 MG TAB PO SCH (19:53)
[2022-10-01 00:08] LABS: Glucose,Whole Blood 92 mg/dL (70-110)
[2022-10-01] MEDS: NOREPINEPHRINE 32 MG in SODIUM CHLORIDE 0.9% 218 ML IV SCH (00:19)
[2022-10-01] MEDS: INSULIN ASPART (NovoLOG) 100 UNIT/ML VIAL SQ SCH ×4 (00:19→17:08)
[2022-10-01 06:04] LABS: Glucose,Whole Blood 88 mg/dL (70-110)
[2022-10-01] MEDS: FORMOTEROL FUMARATE 20 MCG/2 ML NEBU INHALATION SCH ×2 (08:01→19:39)
[2022-10-01] MEDS: IPRATROPIUM-ALBUTEROL 3 ML NEB INHALATION SCH ×4 (08:01→19:40)
[2022-10-01] MEDS: BUDESONIDE 1 MG/2 ML NEBU INHALATION SCH ×2 (08:01→19:39)
[2022-10-01] MEDS: APIXABAN 2.5 MG TABLET PO SCH ×2 (08:57→20:45)
[2022-10-01] MEDS: CEFEPIME 2 GM in SODIUM CHLORIDE 0.9% 100 ML IVPB SCH ×2 (08:57→20:45)
[2022-10-01] MEDS: FUROSEMIDE 20 MG TAB PO SCH (08:57)
[2022-10-01] MEDS: PANTOPRAZOLE 40 MG/10 ML VIAL IVP SCH (08:57)
[2022-10-01 09:25] VITALS: BMI 25.4
[2022-10-01 11:59] LABS: Glucose,Whole Blood 102 mg/dL (70-110)
[2022-10-01] MEDS: methocarbamoL 750 MG TAB PO PRN (14:05)
--- NOTE | 2022-10-01 16:26 | P.PN ---
Subjective Progress Note Date: 10/01/22 Principal diagnosis: Acute hypoxic history failure secondary to healthcare acquired pneumonia and COPD exacerbation 1-year-old male, who is brought into the emergency department, on September 23, shortly after midnight, with shortness of breath, mental status changes, and low saturations. The patient had been at a nursing facility, for IV antibiotics, for pneumonia. He was seen earlier today by his family and was doing well. Apparently the nursing staff noted that the patient's breathing had worsened, and his saturations were in the 50s. For that reason, EMS was called, and the patient was brought into the emergency room. Because of his poor mental status, and respiratory decline, he was intubated by Dr. Hanson. The patient was seen today in the emergency department, trauma room 1. He is currently sedated, on propofol at 14 mcg/kg/m, and is receiving norepinephrine at 0.1 mcg/kg/m. His CTA was negative for pulmonary embolism, but did show some infiltrate and cavitation in the left lower lobe. He also had bilateral infiltrates and was started on vancomycin and cefepime. Ventilator settings include the volume assist control, rate 20, tidal volume 450, FiO2 50% PEEP of 5. Blood gases on the same settings, except 60%, show a PaO2 of 135, pCO2 of 38, and a pH is 7.35. White count 5.7, hemoglobin 15.4, hematocrit 45.8, and platelet count 235,000. Sodium 135, potassium 3.6, chlorides 107, CO2 23, BUN 20, creatinine 0.75. Albumin was 3. N-terminal proBNP was 1210. Troponin was less than 0.012. The brain CT showed cerebral atrophy and chronic small vessel ischemia but nothing acute. The chest x-ray showed left-sided pulmonary infiltrates, unchanged from her previous x-ray done on September 13. The CT angiogram was negative for pulmonary embolism, but did show bilateral patchy pulmonary infiltrates at the lung bases, with a cavitary lesion in the left midlung. Again, not much change from prior studies. 09/29/2022, the patient is stable. No new complaints. Eating very well. Occasional cough and congestion. Continues to be treated with IV cefepime. The patient a cavitating left lung pneumonia which was gradually improving. Oth erwise, no cardiac arrhythmias. No syncope. No respiratory distress and the patient remained on 2 L of oxygen by nasal cannula. Rest of the medication remains unchanged. His profoundly weak and he may benefit from ECF placement. 09/30/2022, no new complaints. Resting comfortably in bed. He currently on room air oxygen. Remains on IV cefepime. The plan is to send this patient to medical [facility] on tomorrow. No syncope. No chest pain. No new labs for today Reevaluated today on 10/01/22, anthony patient ent is doing better, he is actually on room air, no complaints, patient remains on multiple medications, including antibiotics and steroids, being followed by infectious disease on consultation. Chest x-ray is showing improvement in his left upper lobe infiltrate. Patient may eventually require to go back to [facility] for rehabilitation. Objective - Vital Signs Vital signs: Vital Signs Temp 97.5 F L 10/01/22 08:00 Pulse 70 10/01/22 16:14 Resp 20 10/01/22 08:00 BP 116/57 10/01/22 08:00 Pulse Ox 92 L 10/01/22 08:03 FiO2 21 09/30/22 19:54 Intake & Output 09/30/22 10/01/22 10/01/22 18:59 06:59 18:59 Intake Total 496 358 Output Total 300 850 Balance 196 -850 358 Weight 80.5 kg Intake: Oral 476 358 Tube Feeding 20 Output: Urine 300 850 Other: Voiding Method External Catheter External Catheter External Catheter ABP, PAP, CO, CI - Last Documented Arterial Blood Pressure 148/75 - Exam Physical Exam: Revealed a 81-year-old white male in no distress on room air. HEENT:[Neck is supple.] [No neck masses.] [No thyromegaly.] [No JVD.] Chest: [Clear throughout, no crackles, no rhonchi, no wheezes.] Cardiac Exam: [Normal S1 and S2, no S3 gallop, no murmur.] Abdomen: [Soft, nontender, no megaly, no rebound, no guarding, normal bowel sounds.] Extremities: [No clubbing, no edema, no cyanosis.] Neurological Exam: [No focal neurologic deficit.] Psychiatric: Normal mood affect and normal mental status examination. Skin: No rashes. - Labs CBC & Chem 7: 09/27/22 04:30 09/30/22 13:57 Assessment and Plan Assessment: Impression: Acute hypoxic respiratory failure secondary to left upper lobe pneumonia requiring intubation and mechanical ventilation, his pneumonia is likely hospital acquired or healthcare acquired pneumonia. Bronchoscopy and BAL was nondiagnostic History of COVID-19 pneumonia History of coronary artery disease Chronic atrial fibrillation History of underlying COPD Coronary arteriosclerosis History of dyslipidemia Benign essential hypertension GERD without esophagitis Deafness History of gout Recommendation: Continue antibiotics as per infectious disease on the case. Patient was treated with cefepime. Continue bronchodilators. Continue anticoagulation/eliquis. Consider discharge planning to a rehab facility. Will follow as needed. Time with Patient: Less than 30
[2022-10-01 16:41] LABS: Glucose,Whole Blood 109 mg/dL (70-110)
[2022-10-01] MEDS: CLOPIDOGREL 75 MG TAB PO SCH (20:45)
[2022-10-01] MEDS: ATORVASTATIN 20 MG TAB PO SCH (20:45)
[2022-10-01 20:50] VITALS: RESP 19
--- NOTE | 2022-10-01 23:00 | P.PN ---
Subjective This is a pleasant 81 years old male with multiple medical problems presents with acute hypoxic respiratory failure required short course of intubation and mechanical ventilation, currently patient is on 2 L/m of oxygen via nasal cannula and breathing significantly improved. Patient also with some evidence of pneumonia of the left upper lobe and left lower lobe with cavity. He's been on IV cefepime and ID team of the case. Has bradycardia secondary to digoxin, discontinued. Remains on Eliquis home dose of 2.5 mg, Plavix. Physical therapist recommended to rehab, public health social worker consulted 09/28/2022 Patient generally doing well, he is fully awake and oriented, he feels very weak, subacute rehab has been recommended for him and public health social worker consulted Patient has good appetite His dyspnea is better, no wheezing. Mentation is at baseline. Bradycardia improved and heart rate 72 this morning, he is saturating 94% on 2 L oxygen. No labs from today Patient is medically stable patient may be considered for discharge once cleared for protocol consult ends. Currently on IV cefepime. Also is on home dose of Eliquis on Plavix. 09/29/2022 patient remains comfortable, sitting up in bed on 2 L oxygen via nasal cannula He tolerates diet wellWith little or no assistance He denies any other GI or abdominal pain. Creatinine 1.2. He remains on cefepime and home dose of Eliquis blood thinner 2.5 mg Patient will be discharged back to his ECF 09/30/2022 No change in clinical status Vitals stable Labs reviewed He remains on IV cefepime and home dose of Eliquis and Plavix. Plan to discharge to rehab [employer] signed off the case. And his rate is controlled currently 10/01/2022 Patient remains clinically stable Repeat swallow evaluation today showing the same findings from before with no new recommendation, continue with chopped diet. Patient still on cefepime and Eliquis Planned for rehab Patient is medically stable pending placement, discussed with the staff Objective - Vital Signs Vital signs: Vital Signs Temp 97.5 F L 10/01/22 08:00 Pulse 72 10/01/22 11:50 Resp 20 10/01/22 08:00 BP 116/57 10/01/22 08:00 Pulse Ox 92 L 10/01/22 08:03 FiO2 21 09/30/22 19:54 Intake & Output 09/30/22 10/01/22 10/01/22 18:59 06:59 18:59 Intake Total 496 358 Output Total 300 850 Balance 196 -850 358 Weight 80.5 kg Intake: Oral 476 358 Tube Feeding 20 Output: Urine 300 850 Other: Voiding Method External Catheter External Catheter External Catheter ABP, PAP, CO, CI - Last Documented Arterial Blood Pressure 148/75 - Exam -GENERAL: The patient is alert and oriented x3, not in any acute distress. Well developed, well nourished. Generally weak HEENT: Pupils are round and equally reacting to light. EOMI. No scleral icterus. No conjunctival pallor. Normocephalic, atraumatic. No pharyngeal erythema. No thyromegaly. CARDIOVASCULAR: S1 and S2 present. No murmurs, rubs, or gallops. PULMONARY: Chest is clear to auscultation, no wheezing or crackles. ABDOMEN: Soft, nontender, nondistended, normoactive bowel sounds. No palpable organomegaly. MUSCULOSKELETAL: No joint swelling or deformity. EXTREMITIES: No cyanosis, clubbing, or pedal edema. NEUROLOGICAL: Gross neurological examination did not reveal any focal deficits. SKIN: No rashes. no petechiae. - Labs CBC & Chem 7: 09/27/22 04:30 09/30/22 13:57 Assessment and Plan Assessment: Pneumonia of the left upper lobe and left lower lobe with T Acute hypoxic respiratory failure Mild COPD exacerbation Symptomatic bradycardia secondary to digoxin, discontinued History of atrial flutter History of cardiomyopathy with ejection fraction 35-40% History of coronary artery disease status post stent, not found a surgical candidate for bypass Plan: Continue with cefepime Continue with Eliquis Continue with oral Lasix Cardiogenic, infectious disease and cardiology team and the case therapist heart rate Labs and medication were reviewed.. Continue same treatment. Continue with symptomatic treatment. Resume home medication. Monitor lytes and vitals. DVT and GI prophylaxis. Further recommendations as per clinical course of the patient DVT prophylaxis: Eliquis GI Prophylaxis: Ppi PT/OT: subacute rehab Prognosis is guarded
[2022-10-02 00:46] LABS: Glucose,Whole Blood 105 mg/dL (70-110)
[2022-10-02] MEDS: INSULIN ASPART (NovoLOG) 100 UNIT/ML VIAL SQ SCH ×3 (01:07→12:04)
[2022-10-02] MEDS: NOREPINEPHRINE 32 MG in SODIUM CHLORIDE 0.9% 218 ML IV SCH (01:14)
[2022-10-02 05:56] LABS: Glucose,Whole Blood 87 mg/dL (70-110)
[2022-10-02] MEDS: FORMOTEROL FUMARATE 20 MCG/2 ML NEBU INHALATION SCH (08:33)
[2022-10-02] MEDS: BUDESONIDE 1 MG/2 ML NEBU INHALATION SCH (08:33)
[2022-10-02] MEDS: IPRATROPIUM-ALBUTEROL 3 ML NEB INHALATION SCH ×2 (08:33→10:56)
[2022-10-02] MEDS: PANTOPRAZOLE 40 MG/10 ML VIAL IVP SCH (09:04)
[2022-10-02] MEDS: CEFEPIME 2 GM in SODIUM CHLORIDE 0.9% 100 ML IVPB SCH (09:04)
[2022-10-02] MEDS: APIXABAN 2.5 MG TABLET PO SCH (09:04)
[2022-10-02] MEDS: FUROSEMIDE 20 MG TAB PO SCH (09:04)
[2022-10-02] MEDS: ACETAMINOPHEN TAB 325 MG TAB PO PRN (09:13)
--- NOTE | 2022-10-02 11:17 | P.DS ---
Providers Date of admission: 09/23/22 03:08 Attending physician: Nathanael Kendrick Consults: 09/23/22 03:06 Consult Physician Stat Consulting Provider: Emiliano Gaffney Consult Reason/Comments: hypoxic respiratory failure, intubation, copd, pneumonia Do you want consulting provider notified?: Already Contacted 09/23/22 13:26 Consult Physician Routine Consulting Provider: Moisés Malagon Consult Reason/Comments: pneumonia, cavity? Do you want consulting provider notified?: Yes Primary care physician: Myranda Light, Hospital Course: Diagnoses: Pneumonia of the left upper lobe and left lower lobe, responding to treatment Acute hypoxic respiratory failure, significantly improved Mild COPD exacerbation Symptomatic bradycardia secondary to digoxin, discontinued. Improved History of atrial flutter History of cardiomyopathy with ejection fraction 35-40% History of coronary artery disease status post stent, not found a surgical candidate for bypass Hospital course: This is a pleasant 81 years old male with multiple medical problems presents with acute hypoxic respiratory failure required short course of intubation and mechanical ventilation, currently patient is on 2 L/m of oxygen via nasal cannula and breathing significantly improved. Patient also with some evidence of pneumonia of the left upper lobe and left lower lobe with cavity. He's been on IV cefepime and ID team of the case. Patient followed closely by pulmonary and infectious disease team. As patient improved clinically both services cleared him for discharge. Patient will be discharge on oral antibiotics as per ID team Has bradycardia secondary to digoxin, discontinued. Remains on Eliquis home dose of 2.5 mg, Plavix. On the day of discharge she denies chest pain or diarrhea or vomiting, he tolerates that well, no urinary complaints. He is cleared for discharge by all consultants as above Problems and management plan were discussed with the patient and he verbalized understanding and acceptance Patient was found stable and can be discharged to [facility] for [facility] in guarded prognosis however he needs follow-up as an outpatient. Patient was instructed to follow up with PCP Myranda Light within one week and patient agrees Patient was instructed to follow up with records analyst Dr. Austin in 2 weeks on pc support specialist Dr. Patrick in 2 weeks and he agrees to call and make appointments Physical exam Gen: patient is a AAOx3, no distress, general weakness CVS: S1-S2, RRR, no murmur Lungs: B/L CTA, no wheezing Abdomen: soft, no distention, no tenderness, positive bowel sounds Extremity: no leg edema or induration Time spent more than 35 minutes Patient Condition at Discharge: Serious Plan - Discharge Summary Discharge Rx Participant: Yes New Discharge Prescriptions: No Action Digoxin [Lanoxin] 125 mcg PO DAILY Budesonide/Formoterol Fumarate [Symbicort 160-4.5 Mcg Inhaler] 2 puff INHALATION RT-BID Atorvastatin [Lipitor] 20 mg PO HS Apixaban [Eliquis] 2.5 mg PO BID methocarbamoL [Methocarbamol] 750 mg PO TID PRN PRN Reason: Muscle Pain Albuterol Nebulized [Ventolin Nebulized] 2.5 mg INHALATION RT-Q6H PRN PRN Reason: Shortness Of Breath HYDROcodone/APAP 5-325MG [[place] 5-325] 1 tab PO QID PRN 3 Days #12 tab PRN Reason: Pain Acetaminophen [Tylenol Arthritis] 650 mg PO Q4H PRN PRN Reason: Pain Clopidogrel [Plavix] 75 mg PO HS metroNIDAZOLE [Flagyl] 500 mg PO Q8H Furosemide [Lasix] 20 mg PO DAILY Cefepime [Maxipime] 2 gm IVPB Q8H #42 each Health Shake(Unknown) 1 dose PO BID@0700,1600 Discharge Medication List Atorvastatin [Lipitor] 20 mg PO HS 10/17/18 [History] Budesonide/Formoterol Fumarate [Symbicort 160-4.5 Mcg Inhaler] 2 puff INHALATION RT-BID 10/17/18 [History] Digoxin [Lanoxin] 125 mcg PO DAILY 10/17/18 [History] Apixaban [Eliquis] 2.5 mg PO BID 06/05/20 [History] Albuterol Nebulized [Ventolin Nebulized] 2.5 mg INHALATION RT-Q6H PRN 08/28/22 [History] Furosemide [Lasix] 20 mg PO DAILY 08/28/22 [History] methocarbamoL [Methocarbamol] 750 mg PO TID PRN 08/28/22 [History] Cefepime [Maxipime] 2 gm IVPB Q8H #42 each 09/12/22 [Rx] HYDROcodone/APAP 5-325MG [[place] 5-325] 1 tab PO QID PRN 3 Days #12 tab 09/13/22 [Rx] Acetaminophen [Tylenol Arthritis] 650 mg PO Q4H PRN 09/23/22 [History] Clopidogrel [Plavix] 75 mg PO HS 09/23/22 [History] Health Shake(Unknown) 1 dose PO BID@0700,1600 09/23/22 [History] metroNIDAZOLE [Flagyl] 500 mg PO Q8H 09/23/22 [History] Follow up Appointment(s)/Referral(s): Myranda Light DO [Primary Care Provider] - 1-2 days Activity/Diet/Wound Care/Special Instructions: Heart healthy diet we recommend continuation of dysphagia III (chopped) texture diet with thin liquids, straws ok.
[2022-10-02 11:59] LABS: Glucose,Whole Blood 110 mg/dL (70-110)
[2022-10-02 12:03] VITALS: BP 123/77; PULSE 61; TEMP 97.9
--- NOTE | 2022-10-02 14:55 | P.PN ---
Subjective Progress Note Date: 10/02/22 Principal diagnosis: Acute hypoxic history failure secondary to healthcare acquired pneumonia and COPD exacerbation 1-year-old male, who is brought into the emergency department, on September 23, shortly after midnight, with shortness of breath, mental status changes, and low saturations. The patient had been at a nursing facility, for IV antibiotics, for pneumonia. He was seen earlier today by his family and was doing well. Apparently the nursing staff noted that the patient's breathing had worsened, and his saturations were in the 50s. For that reason, EMS was called, and the patient was brought into the emergency room. Because of his poor mental status, and respiratory decline, he was intubated by Dr. Hanson. The patient was seen today in the emergency department, trauma room 1. He is currently sedated, on propofol at 14 mcg/kg/m, and is receiving norepinephrine at 0.1 mcg/kg/m. His CTA was negative for pulmonary embolism, but did show some infiltrate and cavitation in the left lower lobe. He also had bilateral infiltrates and was started on vancomycin and cefepime. Ventilator settings include the volume assist control, rate 20, tidal volume 450, FiO2 50% PEEP of 5. Blood gases on the same settings, except 60%, show a PaO2 of 135, pCO2 of 38, and a pH is 7.35. White count 5.7, hemoglobin 15.4, hematocrit 45.8, and platelet count 235,000. Sodium 135, potassium 3.6, chlorides 107, CO2 23, BUN 20, creatinine 0.75. Albumin was 3. N-terminal proBNP was 1210. Troponin was less than 0.012. The brain CT showed cerebral atrophy and chronic small vessel ischemia but nothing acute. The chest x-ray showed left-sided pulmonary infiltrates, unchanged from her previous x-ray done on September 13. The CT angiogram was negative for pulmonary embolism, but did show bilateral patchy pulmonary infiltrates at the lung bases, with a cavitary lesion in the left midlung. Again, not much change from prior studies. 09/29/2022, the patient is stable. No new complaints. Eating very well. Occasional cough and congestion. Continues to be treated with IV cefepime. The patient a cavitating left lung pneumonia which was gradually improving. Oth erwise, no cardiac arrhythmias. No syncope. No respiratory distress and the patient remained on 2 L of oxygen by nasal cannula. Rest of the medication remains unchanged. His profoundly weak and he may benefit from ECF placement. 09/30/2022, no new complaints. Resting comfortably in bed. He currently on room air oxygen. Remains on IV cefepime. The plan is to send this patient to medical [place] [facility] on tomorrow. No syncope. No chest pain. No new labs for today Reevaluated today on 10/01/22, anthony patient ent is doing better, he is actually on room air, no complaints, patient remains on multiple medications, including antibiotics and steroids, being followed by infectious disease on consultation. Chest x-ray is showing improvement in his left upper lobe infiltrate. Patient may eventually require to go back to [facility] for rehabilitation. Patient was reevaluated today on 10/02/22, seems to be quite comfortable, on room air, I understand the patient may be going to ECF today. Objective - Vital Signs Vital signs: Vital Signs Temp 97.9 F 10/02/22 12:00 Pulse 61 10/02/22 12:00 Resp 19 10/02/22 12:00 BP 123/77 10/02/22 12:00 Pulse Ox 93 L 10/02/22 12:00 FiO2 21 09/30/22 19:54 Intake & Output 10/01/22 10/02/22 10/02/22 18:59 06:59 18:59 Intake Total 458 118 Output Total 900 Balance 458 -900 118 Weight 80.5 kg Intake: IV 100 Cefepime 2 gm In Sodium 100 Chloride 0.9% 100 ml @ 200 mls/hr IVPB Q12HR [facility] Rx#:[id number] Oral 358 118 Output: Urine 900 Other: Voiding Method External Catheter External Catheter External Catheter ABP, PAP, CO, CI - Last Documented Arterial Blood Pressure 148/75 - Exam Physical Exam: Revealed a 81-year-old white male in no distress on room air. HEENT:[Neck is supple.] [No neck masses.] [No thyromegaly.] [No JVD.] Chest: [Clear throughout, no crackles, no rhonchi, no wheezes.] Cardiac Exam: [Normal S1 and S2, no S3 gallop, no murmur.] Abdomen: [Soft, nontender, no megaly, no rebound, no guarding, normal bowel sounds.] Extremities: [No clubbing, no edema, no cyanosis.] Neurological Exam: [No focal neurologic deficit.] Psychiatric: Normal mood affect and normal mental status examination. Skin: No rashes. - Labs CBC & Chem 7: 09/27/22 04:30 09/30/22 13:57 Assessment and Plan Assessment: Impression: Acute hypoxic respiratory failure secondary to left upper lobe pneumonia requiring intubation and mechanical ventilation, his pneumonia is likely hospital acquired or healthcare acquired pneumonia. Bronchoscopy and BAL was nondiagnostic History of COVID-19 pneumonia History of coronary artery disease Chronic atrial fibrillation History of underlying COPD Coronary arteriosclerosis History of dyslipidemia Benign essential hypertension GERD without esophagitis Deafness History of gout Recommendation: Agree with discharge planning Continue bronchodilators Continue antibiotics as per infectious disease on the case. Continue eliquis Continue Symbicort Continue updrafts Time with Patient: Less than 30
== END 2022-10-02 15:51 | DRG 208 ==
LOC: EC 00:19 → 2SICU 03:08 → 3SCARD 09-28 01:52
PROVIDERS: ADMIT Hospitalist; ATTEND Hospitalist
PROC: 0BH17EZ Insertion of Endotracheal Airway into Trachea, Via Natural or Artificial Opening (ICD-10-PCS; principal; 2022-09-23)
PROC: 5A1945Z Respiratory Ventilation, 24-96 Consecutive Hours (ICD-10-PCS; principal; 2022-09-23)
PROC: 0D9670Z Drainage of Stomach with Drainage Device, Via Natural or Artificial Opening (ICD-10-PCS; 2022-09-23)
PROC: 5A09357 Assistance with Respiratory Ventilation, Less than 24 Consecutive Hours, Continuous Positive Airway Pressure (ICD-10-PCS; 2022-09-23)
PROC: 0DH67UZ Insertion of Feeding Device into Stomach, Via Natural or Artificial Opening (ICD-10-PCS; 2022-09-24)
PROC: 3E0G76Z Introduction of Nutritional Substance into Upper GI, Via Natural or Artificial Opening (ICD-10-PCS; 2022-09-24)
PROC: 0B9G8ZZ Drainage of Left Upper Lung Lobe, Via Natural or Artificial Opening Endoscopic (ICD-10-PCS; 2022-09-24)
PROC: 4A133J1 Monitoring of Arterial Pulse, Peripheral, Percutaneous Approach (ICD-10-PCS; 2022-09-24)
PROC: 03HY32Z Insertion of Monitoring Device into Upper Artery, Percutaneous Approach (ICD-10-PCS; 2022-09-24)
PROC: 4A133B1 Monitoring of Arterial Pressure, Peripheral, Percutaneous Approach (ICD-10-PCS; 2022-09-24)
DX: J18.8 Other pneumonia, unspecified organism (principal); G93.41 Metabolic encephalopathy; J96.01 Acute respiratory failure with hypoxia; J44.0 Chronic obstructive pulmonary disease with (acute) lower respiratory infection; J44.1 Chronic obstructive pulmonary disease with (acute) exacerbation; I47.1 Supraventricular tachycardia; I48.92 Unspecified atrial flutter; K21.9 Gastro-esophageal reflux disease without esophagitis; Y95 Nosocomial condition; Z86.16 Personal history of COVID-19; Z20.822 Contact with and (suspected) exposure to COVID-19; Z71.3 Dietary counseling and surveillance; D69.6 Thrombocytopenia, unspecified; I95.9 Hypotension, unspecified; R00.1 Bradycardia, unspecified; E53.8 Deficiency of other specified B group vitamins; I11.0 Hypertensive heart disease with heart failure; I50.9 Heart failure, unspecified; R13.10 Dysphagia, unspecified; T46.0X5A Adverse effect of cardiac-stimulant glycosides and drugs of similar action, initial encounter; I73.9 Peripheral vascular disease, unspecified; M10.9 Gout, unspecified; E78.5 Hyperlipidemia, unspecified; H91.90 Unspecified hearing loss, unspecified ear; I25.10 Atherosclerotic heart disease of native coronary artery without angina pectoris; I48.0 Paroxysmal atrial fibrillation; Z79.01 Long term (current) use of anticoagulants; Z79.02 Long term (current) use of antithrombotics/antiplatelets; Z79.51 Long term (current) use of inhaled steroids; Z79.899 Other long term (current) drug therapy; Z87.01 Personal history of pneumonia (recurrent); Z86.010 Personal history of colon polyps; Z87.891 Personal history of nicotine dependence; Z95.5 Presence of coronary angioplasty implant and graft; Z88.0 Allergy status to penicillin; Z91.041 Radiographic dye allergy status
CPT/HCPCS: 31500; 31624; 36415; 36556; 36600; 70450; 71045; 71275; 80048; 80053; 80162; 80306; 81001; 82805; 83605; 83735; 83880; 84132; 84145; 84443; 84484; 85025; 85610; 85730; 87040; 87070; 87102; 87116; 87205; 87206; 87252; 87496; 87498; 87502; 87529; 87634; 87636; 87798; 88108; 88305; 89050; 93005; 93306; 94002; 94003; 94640; 94667; 94760; 96361; 96365; 96366; 96375; 96376; 99291

== ENCOUNTER 2023-01-22 19:49 | Emergency (ER) | payer MEDICARE, BC ==
[2023-01-22 20:12] VITALS: RESP 16; TEMP 97.8
--- NOTE | 2023-01-22 21:04 | XR ---
EXAMINATION TYPE: XR elbow complete LT, XR humerus LT DATE OF EXAM: 01/22/2023 8:50 PM INDICATION: Patient age:Male; 82 years old; Reason for study: fall pain swelling; COMPARISON: None TECHNIQUE: The left elbow was examined in AP, lateral, and oblique projections. Left humerus was evaluated in frontal and lateral views. FINDINGS: No displaced fracture visualized. No evidence for dislocation. There is soft tissue swellin g over the olecranon. The left shoulder is without evidence of fracture. Mild degeneration changes of the common clavicular and glenohumeral joint. Visualized chest is unremarkable. IMPRESSION: No obvious displaced fracture. There is soft tissue swelling over the olecranon. Consider further pacheco luation with CT if there remains concern for fracture.
[2023-01-22] MEDS ORDERED: traMADol 50 MG TAB PO STA (21:06)
--- NOTE | 2023-01-22 21:10 | XR ---
EXAMINATION TYPE: XR Hip LT and AP Pelvis DATE OF EXAM: 01/22/2023 8:55 PM INDICATION: Patient age:Male; 82 years old; Reason for study: fall left hip pain; COMPARISON: None. TECHNIQUE: The left hip was examined in the frontal and lateral projections and a AP pelvis. FINDINGS: No evidence for acute process, joint dislocation or significant soft tissue swelling. Osteo phyte formation of the superior acetabulum of the hips. Atherosclerosis of the arterial vasculature. IMPRESSION: 1. No evidence for acute process. 2. Mild hip osteoarthrosis.
--- NOTE | 2023-01-22 21:15 | XR ---
EXAMINATION TYPE: XR wrist complete LT DATE OF EXAM: 01/22/2023 9:11 PM INDICATION: Patient age:Male; 82 years old; Reason for study: pain; COMPARISON: None TECHNIQUE: left wrist was examined in the. Frontal, navicular, lateral, and oblique. FINDINGS: No acute osseous pathology, joint dislocation, or joint effusion. No evidence of any soft tissue swelling is seen. Degeneration changes most pronounced at the first digit carpometacarpal join t. IMPRESSION: No acute osseous pathology.
--- NOTE | 2023-01-22 21:34 | ED ---
Fall HPI - General Chief Complaint: Fall Stated Complaint: Fall Time Seen by Provider: 01/22/23 20:43 Source: patient, RN notes reviewed Mode of arrival: ambulatory Limitations: no limitations - History of Present Illness Initial Comments: 82-year-old male presents emergency Department chief complaint of a fall. Patient states he turned too quickly with his walker and states he lost his balance falling onto his left side. Patient had no head injury this is witnessed by family who stated that he had no head injury. Patient complains of left arm pain, left hip pain. Patient was able to ambulate. Patient is on a liquid. Has no complaints of abdominal, chest pain no areas of bleeding noted. - Related Data Home Medications Medication Instructions Recorded Confirmed Atorvastatin [Lipitor] 20 mg PO HS 10/17/18 09/23/22 Budesonide/Formoterol Fumarate 2 puff INHALATION RT-BID 10/17/18 09/23/22 [Symbicort 160-4.5 Mcg Inhaler] Apixaban [Eliquis] 2.5 mg PO BID 06/05/20 09/23/22 Albuterol Nebulized [Ventolin 2.5 mg INHALATION RT-Q6H PRN 08/28/22 09/23/22 Nebulized] Furosemide [Lasix] 20 mg PO DAILY 08/28/22 09/23/22 methocarbamoL [Methocarbamol] 750 mg PO TID PRN 08/28/22 09/23/22 Acetaminophen [Tylenol Arthritis] 650 mg PO Q4H PRN 09/23/22 09/23/22 Clopidogrel [Plavix] 75 mg PO HS 09/23/22 09/23/22 Health Shake(Unknown) 1 dose PO BID@0700,1600 09/23/22 09/23/22 metroNIDAZOLE [Flagyl] 500 mg PO Q8H 09/23/22 09/23/22 Previous Rx's Medication Instructions Recorded cefUROXime axetiL [Ceftin] 500 mg PO BID 10 Days #20 tab 10/02/22 Allergies Allergy/AdvReac Type Severity Reaction Status Date / Time Penicillins Allergy Anaphylaxis Verified 09/23/22 13:37 Iodinated Contrast Media AdvReac Diarrhea, Verified 09/23/22 13:37 [Iodinated Contrast- Oral RASH and IV Dye] Review of Systems ROS Statement: Those systems with pertinent positive or pertinent negative responses have been documented in the HPI. ROS Other: All systems not noted in ROS Statement are negative. Past Medical History Past Medical History: Atrial Flutter, Coronary Artery Disease (CAD), Heart Failure, COPD, GERD/Reflux, Hearing Disorder / Deafness, Hyperlipidemia, Hypertension, Osteoarthritis (OA), Renal Disease, Vascular Disorder Additional Past Medical History / Comment(s): hx. gout, hx. colon polyps, circulation problems in legs, slight decreased kidney function, shingles History of Any Multi-Drug Resistant Organisms: MRSA Date of last positivie culture/infection: 02/14/22 MDRO Source:: Right Thigh Past Surgical History: Cholecystectomy, Heart Catheterization, Heart Catheterization With Stent Additional Past Surgical History / Comment(s): right bone graft to collar bone Past Anesthesia/Blood Transfusion Reactions: No Reported Reaction Date of Last Stent Placement:: 05/2020 Past Psychological History: No Psychological Hx Reported Smoking Status: Former smoker Past Alcohol Use History: None Reported Past Drug Use History: None Reported - Past Family History Mother Family Medical History: No Reported History General Exam Limitations: no limitations General appearance: alert, in no apparent distress Head exam: Present: atraumatic, normocephalic, normal inspection Eye exam: Present: normal appearance, PERRL, EOMI. Absent: scleral icterus, conjunctival injection, periorbital swelling ENT exam: Present: normal exam, normal oropharynx, mucous membranes moist Neck exam: Present: normal inspection, full ROM. Absent: tenderness, meningismus, lymphadenopathy Respiratory exam: Present: normal lung sounds bilaterally. Absent: respiratory distress, wheezes, rales, rhonchi, stridor Cardiovascular Exam: Present: regular rate, normal rhythm, normal heart sounds. Absent: systolic murmur, diastolic murmur, rubs, gallop, clicks Extremities exam: Present: other (Left elbow there is moderate swelling, hematoma noted, is hematoma left wrist and tenderness of the left elbow pain with range of motion, neurovascular intact.) Back exam: Present: full ROM. Absent: tenderness, paraspinal tenderness, vertebral tenderness Neurological exam: Present: alert, oriented X3, CN II-XII intact, reflexes normal. Absent: motor sensory deficit Course Vital Signs 01/22/23 20:08 Temperature 97.8 F Pulse Rate 86 Respiratory 16 Rate Blood Pressure 153/96 O2 Sat by Pulse 98 Oximetry Medical Decision Making - Medical Decision Making Was pt. sent in by a medical professional or institution (, [facility], [employer], urgent care, hospital, or prison...) When possible be specific @ -No Did you speak to anyone other than the patient for history (EMS, parent, family, police, friend...)? What history was obtained from this source @ -Family provided recent past medical history Did you review nursing and triage notes (agree or disagree)? Why? @ -I reviewed and agree with nursing and triage notes Were old charts reviewed (outside hosp., previous admission, EMS record, old EKG, old radiological studies, urgent care reports/EKG's, prison records)? Report findings @ -No old charts were reviewed Differential Diagnosis (chest pain, altered mental status, abdominal pain women, abdominal pain men, vaginal bleeding, weakness, fever, dyspnea, syncope, headache, dizziness, GI bleed, back pain, seizure, CVA, palpatations, mental health, musculoskeletal)? @ -Left arm contusion, hematoma, left arm fracture, left hip fracture, this list is not all inclusive EKG interpreted by me (3pts min.). @ -None X-rays interpreted by me (1pt min.). @ -X-ray left humerus negative for acute fracture, left elbow x-ray negative for acute fracture, left hip negative for acute fracture, x-ray left wrist negative for acute fracture CT interpreted by me (1pt min.). @ -None done U/S interpreted by me (1pt. min.). @ -None done What testing was considered but not performed or refused? (CT, X-rays, U/S, labs)? Why? @ -None What meds were considered but not given or refused? Why? @ -None Did you discuss the management of the patient with other professionals (professionals i.e. [facility] [employer], [employer], lab, RT, psych nurse, social media content manager, manuscripts curator, teacher, chief knowledge officer, rn case management)? Give summary @ -No Was smoking cessation discussed for >3mins.? @ -No Was critical care preformed (if so, how long)? @ -No Were there social determinants of health that impacted care today? How? (Homelessness, low income, unemployed, alcoholism, drug addiction, transportation, low edu. Level, literacy, decrease access to med. care, [facility] [facility], rehab)? @ -No Was there de-escalation of care discussed even if they declined (Discuss DNR or withdrawal of care, Hospice)? DNR status @ -No What co-morbidities impacted this encounter? (DM, HTN, Smoking, COPD, CAD, Cancer, CVA, ARF, Chemo, Hep., AIDS, mental health diagnosis, sleep apnea, morbid obesity)? @ -None Was patient admitted / discharged? Hospital course, mention meds given and route, prescriptions, significant lab abnormalities, going to OR and other pertinent info. @ -Discharge patient had a mechanical fall he had no head injury. He is neurologically intact. Patient x-rays are negative and will be discharged in stable condition family agree to plan. Undiagnosed new problem with uncertain prognosis? @ -No Drug Therapy requiring intensive monitoring for toxicity (Heparin, Nitro, Insulin, Cardizem)? @ -No Were any procedures done? @ -No Diagnosis/symptom? @ -Fall, left arm contusion, left hip contusion Acute, or Chronic, or Acute on Chronic? @ -Acute Uncomplicated (without systemic symptoms) or Complicated (systemic symptoms)? @ -Uncomplicated Side effects of treatment? @ -No Exacerbation, Progression, or Severe Exacerbation? @ -No Poses a threat to life or bodily function? How? (Chest pain, [place], [place], pneumonia, PE, COPD, DKA, ARF, appy, cholecystitis, CVA, Diverticulitis, Homicidal, Suicidal, threat to staff... and all critical care pts) @ -No Disposition Clinical Impression: Fall, Contusion of left arm, Contusion of left hip Disposition: HOME SELF-CARE Condition: Stable Instructions (If sedation given, give patient instructions): Contusion in Adults (ED), Hematoma (ED) Additional Instructions: Please return to the Emergency Department if symptoms worsen or any other concerns. Is patient prescribed a controlled substance at d/c from ED?: No Referrals: Joanne Bergman DO [Primary Care Provider] - 1-2 days Time of Disposition: 21:34
[2023-01-22 23:36] VITALS: BP 148/78; PULSE 80
== END 2023-01-22 22:00 | disposition home or self-care (01) ==
LOC: EC 19:49
DX: S40.022A Contusion of left upper arm, initial encounter (principal); S70.02XA Contusion of left hip, initial encounter; I48.91 Unspecified atrial fibrillation; I25.10 Atherosclerotic heart disease of native coronary artery without angina pectoris; I11.0 Hypertensive heart disease with heart failure; I50.9 Heart failure, unspecified; J44.9 Chronic obstructive pulmonary disease, unspecified; K21.9 Gastro-esophageal reflux disease without esophagitis; M19.90 Unspecified osteoarthritis, unspecified site; Z79.899 Other long term (current) drug therapy; Z88.0 Allergy status to penicillin; Z88.8 Allergy status to other drugs, medicaments and biological substances; W18.30XA Fall on same level, unspecified, initial encounter
CPT/HCPCS: 73502; 99284

== ENCOUNTER 2023-06-10 15:26 | Inpatient (IN) | payer MEDICARE, BC ==
[2023-06-10 17:03] LABS: Basophils # (A) 0.1 k/uL (0-0.2); Basophils % (A) 1 %; Eosinophils # (A) 0.1 k/uL (0-0.7); Eosinophils % (A) 1 %; HGB 15.8 gm/dL (13.0-17.5); Lymphocytes # (A) 1.2 k/uL (1.0-4.8); Lymphocytes % (A) 11 %; MCH 30.8 pg (25.0-35.0); MCV 93.4 fL (80.0-100.0); Mean Platelet Volume 8.4; Monocytes # (A) 1.2 k/uL (0-1.0); Monocytes % (A) 10 %; Neutrophils # (A) 8.3 k/uL (1.3-7.7); Neutrophils % (A) 75 %; Platelet Count 225 k/uL (150-450); RBC 5.14 m/uL (4.30-5.90); RDW 15.3 % (11.5-15.5); WBC 11.1 k/uL (3.8-10.6)
[2023-06-10 17:20] LABS: Partial Thromboplastin Time 31.5 sec (22.0-30.0)
[2023-06-10 17:30] LABS: ALT 14 U/L (4-49); AST 19 U/L (17-59); African American GFR (CKD) >90 (>60 ml/min/1.73 sqM); Alcohol <10 mg/dL; Alkaline Phosphatase 104 U/L (38-126); Anion Gap 11 mmol/L; Blood Urea Nitrogen 19 mg/dL (9-20); Carbon Dioxide 26 mmol/L (22-30); Chloride 98 mmol/L (98-107); Glucose 85 mg/dL (74-99); Non-African American GFR(CKD) 81 (>60 ml/min/1.73 sqM); Potassium 4.3 mmol/L (3.5-5.1); Sodium 135 mmol/L (137-145); Total Protein 7.2 g/dL (6.3-8.2)
[2023-06-10 17:43] LABS: INR 1.1 (<1.2); Prothrombin Time 11.6 sec (9.0-12.0)
--- NOTE | 2023-06-10 17:43 | CT ---
EXAMINATION TYPE: CT brain cspine wo con CT DLP: 1467.2 mGycm, Automated exposure control for dose reduction was used. DATE OF EXAM: 06/10/2023 5:27 PM COMPARISON: 09/23/2022. CLINICAL INDICATION:Male, 82 years old with history of trauma; fall TECHNIQUE: Brain: Multiple axial CT images of the brain were obtained without IV contrast. Cspine: Axial CT images from the skull base to the inferior aspect of T2 we obtained without intraven ous contrast. Coronal and sagittal reformatted images were also reviewed. FINDINGS: Brain: Extra-axial spaces: No abnormal extra-axial fluid collections. Ventricular system: Dilatation in proportion to cerebral atrophy. Cerebral parenchyma: Cerebral atrophy. No acute intraparenchymal hemorrhage or mass effect. The manzanares -white junction is well differentiated. Scattered hypoattenuating areas are seen within the white mat ter. Cerebellum: Unremarkable. Mass effect: No evidence of midline shift. Intracranial vasculature: Atherosclerotic calcifications of the intracranial vessels. Soft tissues: Normal. Calvarium/osseous structures: No depressed skull fracture. Paranasal sinuses and mastoid air cells: Clear. Visualized orbits: Bilateral aphakia Cervical spine: Fracture: None. Osseous structures: Multilevel degenerative disc disease changes with endplate spurring and disc oste ophyte complex's. Vertebral alignment: Within normal limits. Spinal canal/Neural Foramina: Disc osteophyte complexes at C4-C5 and C5-C6. With at least mild spinal canal stenosis. No evidence for significant neural foraminal stenosis. Neck soft tissues: Prevertebral soft tissues are within normal limits. Calcification of the nuchal li gament. Other: The airway is patent. Centrilobular emphysema changes. Atherosclerosis of the carotid bifurcations. IMPRESSION: 1. No acute intracranial process. 2. Nonspecific white matter changes, likely secondary to chronic small vessel ischemic disease. 3. No evidence of cervical spine fracture. 4. Mild to moderate multilevel degenerative disc disease.
--- NOTE | 2023-06-10 17:50 | XR ---
EXAMINATION TYPE: XR wrist complete LT DATE OF EXAM: 06/10/2023 5:28 PM INDICATION: Patient age:Male; 82 years old; Reason for study: Trauma; 01/22/2023. COMPARISON: 01/22/2023. TECHNIQUE: left wrist was examined in the. Frontal, navicular, lateral, and oblique. FINDINGS: No acute osseous pathology, joint dislocation, or joint effusion. No evidence of any soft tissue swelling is seen. Atherosclerosis of the arterial vasculature. Degeneration changes worse at t he first digit carpometacarpal joint with joint space narrowing and osteophyte formation. Lucency thr ough the lunate on the ulnar aspect. IMPRESSION: 1. Lucency of the lunate on the ulnar aspect which is not definitively seen on prior, correlate with MRI for depressed bony fracture. 2. 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 Similar to 01/22/2023.
--- NOTE | 2023-06-10 17:51 | XR ---
EXAMINATION TYPE: XR pelvis AP view DATE OF EXAM: 06/10/2023 5:28 PM INDICATION: Patient age:Male; 82 years old; Reason for study: Trauma; COMPARISON: None TECHNIQUE: The pelvis was examined in a single projection. FINDINGS: There is no evidence of fracture or dislocation. There is no soft tissue abnormality. No a bnormal calcifications are present. The spine appears intact. Degeneration changes of the hips with osteophyte formation and joint space tearing. At sclerosis of t he arterial vasculature. IMPRESSION: No acute osseous pathology.
--- NOTE | 2023-06-10 17:52 | XR ---
EXAMINATION TYPE: XR chest 1V portable DATE OF EXAM: 06/10/2023 5:28 PM COMPARISON: Chest radiographs from 09/27/2022 TECHNIQUE: XR chest 1V portable Frontal view of the chest. CLINICAL INDICATION:Male, 82 years old with history of trauma; FINDINGS: Lungs/Pleura: Prominent interstitial lung markings are seen scattered throughout the lungs. No eviden ce of focal consolidation, pneumothorax or pleural effusion. Pulmonary vascularity: Unremarkable. Heart/mediastinum: Cardiomediastinal silhouette is enlarged and stable. Musculoskeletal: No acute osseous pathology. Remote right clavicle injury. IMPRESSION: Chronic changes without acute pulmonary process. No significant change from prior.
[2023-06-10] MEDS ORDERED: NALOXONE 0.4 MG/ML 1 ML VIAL IV PRN (18:50)
--- NOTE | 2023-06-10 18:50 | ED ---
General Adult HPI - General Chief complaint: Fall Stated complaint: Fall-head injury-blood thinners Time Seen by Provider: 06/10/23 15:37 Source: patient, family Mode of arrival: wheelchair Limitations: no limitations, physical limitation - History of Present Illness Initial comments: This is an 82-year-old male with a past medical history including diabetes as well as atrial fibrillation on Eliquis presents emergency department with his family for a fall Saturday. The patient reportedly fell between 2 chairs, going along the left ribs. The patient denied hitting his head and denied losing consciousness. The patient was ANO 4 but apparently has been not eating or drinking and not moving around the house. The patient himself denied any acute pain and denied of any further distress at this time. - Related Data Home Medications Medication Instructions Recorded Confirmed Atorvastatin [Lipitor] 20 mg PO HS 10/17/18 06/10/23 Apixaban [Eliquis] 2.5 mg PO BID 06/05/20 06/10/23 Clopidogrel [Plavix] 75 mg PO HS 09/23/22 06/10/23 Albuterol Inhaler [Ventolin Hfa 2 puff INHALATION RT-Q4H PRN 06/10/23 06/10/23 Inhaler] Cetirizine HCl [Zyrtec] 10 mg PO DAILY PRN 06/10/23 06/10/23 Colchicine 0.6 mg PO DAILY PRN 06/10/23 06/10/23 Digoxin [Digitek] 125 mcg PO DAILY 06/10/23 06/10/23 Escitalopram Oxalate [Lexapro] 10 mg PO DAILY 06/10/23 06/10/23 Metoprolol Succinate (ER) [Toprol 12.5 mg PO DAILY 06/10/23 06/10/23 Xl] allopurinoL 100 mg PO DAILY 06/10/23 06/10/23 Allergies Allergy/AdvReac Type Severity Reaction Status Date / Time Penicillins Allergy Anaphylaxis Verified 06/10/23 17:07 Iodinated Contrast Media AdvReac Diarrhea, Verified 06/10/23 17:07 [Iodinated Contrast- Oral RASH and IV Dye] Review of Systems ROS Statement: Those systems with pertinent positive or pertinent negative responses have been documented in the HPI. ROS Other: All systems not noted in ROS Statement are negative. Past Medical History Past Medical History: Atrial Flutter, Coronary Artery Disease (CAD), Heart Failure, COPD, GERD/Reflux, Hearing Disorder / Deafness, Hyperlipidemia, Hypertension, Osteoarthritis (OA), Renal Disease, Vascular Disorder Additional Past Medical History / Comment(s): hx. gout, hx. colon polyps, circulation problems in legs, slight decreased kidney function, shingles History of Any Multi-Drug Resistant Organisms: MRSA Date of last positivie culture/infection: 02/14/22 MDRO Source:: Right Thigh Past Surgical History: Cholecystectomy, Heart Catheterization, Heart Cat heterization With Stent Additional Past Surgical History / Comment(s): right bone graft to collar bone Past Anesthesia/Blood Transfusion Reactions: No Reported Reaction Date of Last Stent Placement:: 05/2020 Past Psychological History: No Psychological Hx Reported Smoking Status: Former smoker Past Alcohol Use History: None Reported Past Drug Use History: None Reported - Past Family History Mother Family Medical History: No Reported History General Exam Limitations: no limitations, physical limitation General appearance: alert, in no apparent distress Head exam: Present: atraumatic, normocephalic, normal inspection Eye exam: Present: normal appearance, PERRL Pupils: Present: normal accommodation ENT exam: Present: normal exam, normal oropharynx, mucous membranes moist Neck exam: Present: normal inspection, full ROM Respiratory exam: Present: normal lung sounds bilaterally, chest wall tenderness (Contusion noted to the left chest wall) Cardiovascular Exam: Present: regular rate, normal rhythm, normal heart sounds GI/Abdominal exam: Present: soft, normal bowel sounds Extremities exam: Present: normal inspection, full ROM, other (Contusion and mild swelling noted to the left wrist with FROM) Back exam: Present: normal inspection, full ROM Neurological exam: Present: alert, oriented X3, CN II-XII intact Psychiatric exam: Present: normal affect, normal mood Skin exam: Present: warm, dry Course Vital Signs 06/10/23 06/10/23 06/10/23 15:31 15:34 17:34 Temperature 98.4 F Pulse Rate 83 77 80 Respiratory 16 20 16 Rate Blood Pressure 152/82 135/76 151/91 O2 Sat by Pulse 94 L 95 98 Oximetry 06/10/23 18:00 Temperature Pulse Rate 80 Respiratory 16 Rate Blood Pressure 160/95 O2 Sat by Pulse 98 Oximetry EKG Findings - EKG Comments: EKG Findings:: An EKG was obtained was obtained and was interpreted by myself showing a rate of 79, OH interval of 265, QR yazidi of 103 and QTC of 402. This EKG showed an normal sinus rhythm with a first-degree AV block. There was however no ST segment elevation or depression noted. Medical Decision Making - Medical Decision Making Was pt. sent in by a medical professional or institution ([facility], PIERCER OPERATOR, urgent care, hospital, or care home...) When possible be specific @ -No Did you speak to anyone other than the patient for history (EMS, parent, family, police, friend...)? What history was obtained from this source @ -Yes, I did speak with the family who stated the patient has been not eating or drinking over last several days since the fall. Did you review nursing and triage notes (agree or disagree)? Why? @ -I reviewed and agree with nursing and triage notes Were old charts reviewed (outside hosp., previous admission, EMS record, old EKG, old radiological studies, urgent care reports/EKG's, care home records)? Report findings @ -No old charts were reviewed Differential Diagnosis (chest pain, altered mental status, abdominal pain women, abdominal pain men, vaginal bleeding, weakness, fever, dyspnea, syncope, headache, dizziness, GI bleed, back pain, seizure, CVA, palpatations, mental health)? @ -Intracranial hemorrhage, pneumonia, pneumothorax, failure to thrive EKG interpreted by me (3pts min.). @ -As above X-rays interpreted by me (1pt min.). @ -Chest x-ray, pelvis x-ray and wrist x-ray were obtained and were interpreted by myself showing no acute process. On the wrist, there was however possible lucency which the radiologist recommended a possible MRI for further evaluation. The patient had noted swelling around and bruising to the left wrist. CT interpreted by me (1pt min.). @ -CT head and neck were obtained and were interpreted by myself showing no acute intracranial abnormality. U/S interpreted by me (1pt. min.). @ -None done What testing was considered but not performed or refused? (CT, X-rays, U/S, labs)? Why? @ -None What meds were considered but not given or refused? Why? @ -None Did you discuss the management of the patient with other professionals (professionals i.e. [facility], PIERCER OPERATOR, lab, RT, psych nurse, high school social science teacher, civil service clerk, teacher, chief merchandising officer, watch case polisher)? Give summary @ -Yes, admitting physician was contacted and he patient admission. Was smoking cessation discussed for >3mins.? @ -No Was critical care preformed (if so, how long)? @ -No Were there social determinants of health that impacted care today? How? (Homelessness, low income, unemployed, alcoholism, drug addiction, transportation, low edu. Level, literacy, decrease access to med. care, half-way, rehab)? @ -No Was there de-escalation of care discussed even if they declined (Discuss DNR or withdrawal of care, Hospice)? DNR status @ -No What co-morbidities impacted this encounter? (DM, HTN, Smoking, COPD, CAD, Cancer, CVA, ARF, Chemo, Hep., AIDS, mental health diagnosis, sleep apnea, morbid obesity)? @ -Hypertension, diabetes, atrial fibrillation on Eliquis Was patient admitted / discharged? Hospital course, mention meds given and route, prescriptions, significant lab abnormalities, going to OR and other pertinent info. @ -The patient was seen and evaluated emergency department. Physical exam, the patient was resting in bed without any acute distress. Vital signs admission were stable. Due to the nature the patient's complaints, trauma workup was obtained and all imaging was negative for any acute processes. There was a possible lucency of the left wrist however there was no obvious fracture noted. All laboratory workup was largely within normal limits. Due to the patient's generalized weakness and failure to thrive, the patient will be admitted for further workup and evaluation. The patient and his MB were agreeable to this. The patient was admitted in stable condition. Undiagnosed new problem with uncertain prognosis? @ -No Drug Therapy requiring intensive monitoring for toxicity (Heparin, Nitro, Insulin, Cardizem)? @ -No Were any procedures done? @ -No Diagnosis/symptom? @ -Fall, chest wall contusion, left wrist contusion, failure to thrive and weakness Acute, or Chronic, or Acute on Chronic? @ -Acute Uncomplicated (without systemic symptoms) or Complicated (systemic symptoms)? @ -Complicated Side effects of treatment? @ -No Exacerbation, Progression, or Severe Exacerbation? @ -No Poses a threat to life or bodily function? How? (Chest pain, [place], [place], pneumonia, PE, COPD, DKA, ARF, appy, cholecystitis, CVA, Diverticulitis, Homicidal, Suicid al, threat to staff... and all critical care pts) @ -Yes, continued failure to thrive and weakness can lead to permanent damage and possible . - Lab Data Result diagrams: 06/10/23 16:34 06/10/23 16:34 Lab Results 06/10/23 06/10/23 06/10/23 Range/Units 16:34 16:34 16:34 WBC 11.1 H (3.8-10.6) k/uL RBC 5.14 (4.30-5.90) m/uL Hgb 15.8 (13.0-17.5) gm/dL Hct 48.0 (39.0-53.0) % MCV 93.4 (80.0-100.0) fL MCH 30.8 (25.0-35.0) pg MCHC 33.0 (31.0-37.0) g/dL RDW 15.3 (11.5-15.5) % Plt Count 225 (150-450) k/uL MPV 8.4 Neutrophils % 75 % Lymphocytes % 11 % Monocytes % 10 % Eosinophils % 1 % Basophils % 1 % Neutrophils # 8.3 H (1.3-7.7) k/uL Lymphocytes # 1.2 (1.0-4.8) k/uL Monocytes # 1.2 H (0-1.0) k/uL Eosinophils # 0.1 (0-0.7) k/uL Basophils # 0.1 (0-0.2) k/uL PT 11.6 (9.0-12.0) sec INR 1.1 (<1.2) APTT 31.5 H (22.0-30.0) sec Sodium 135 L (137-145) mmol/L Potassium 4.3 (3.5-5.1) mmol/L Chloride 98 (98-107) mmol/L Carbon Dioxide 26 (22-30) mmol/L Anion Gap 11 mmol/L BUN 19 (9-20) mg/dL Creatinine 0.85 (0.66-1.25) mg/dL Est GFR (CKD-EPI)AfAm >90 (>60 ml/min/1.73 sqM) Est GFR (CKD-EPI)NonAf 81 (>60 ml/min/1.73 sqM) Glucose 85 (74-99) mg/dL Calcium 10.0 (8.4-10.2) mg/dL Total Bilirubin 1.0 (0.2-1.3) mg/dL AST 19 (17-59) U/L ALT 14 (4-49) U/L Alkaline Phosphatase 104 (38-126) U/L Troponin I (0.000-0.034) ng/mL Total Protein 7.2 (6.3-8.2) g/dL Albumin 4.0 (3.5-5.0) g/dL Serum Alcohol <10 mg/dL Blood Type Blood Type Confirm Blood Type Recheck Bld Type Recheck Status Antibody Screen Spec Expiration Date 06/10/23 06/10/23 06/10/23 Range/Units 16:34 16:45 16:45 WBC (3.8-10.6) k/uL RBC (4.30-5.90) m/uL Hgb (13.0-17.5) gm/dL Hct (39.0-53.0) % MCV (80.0-100.0) fL MCH (25.0-35.0) pg MCHC (31.0-37.0) g/dL RDW (11.5-15.5) % Plt Count (150-450) k/uL MPV Neutrophils % % Lymphocytes % % Monocytes % % Eosinophils % % Basophils % % Neutrophils # (1.3-7.7) k/uL Lymphocytes # (1.0-4.8) k/uL Monocytes # (0-1.0) k/uL Eosinophils # (0-0.7) k/uL Basophils # (0-0.2) k/uL PT (9.0-12.0) sec INR (<1.2) APTT (22.0-30.0) sec Sodium (137-145) mmol/L Potassium (3.5-5.1) mmol/L Chloride (98-107) mmol/L Carbon Dioxide (22-30) mmol/L Anion Gap mmol/L BUN (9-20) mg/dL Creatinine (0.66-1.25) mg/dL Est GFR (CKD-EPI)AfAm (>60 ml/min/1.73 sqM) Est GFR (CKD-EPI)NonAf (>60 ml/min/1.73 sqM) Glucose (74-99) mg/dL Calcium (8.4-10.2) mg/dL Total Bilirubin (0.2-1.3) mg/dL AST (17-59) U/L ALT (4-49) U/L Alkaline Phosphatase (38-126) U/L Troponin I 0.014 (0.000-0.034) ng/mL Total Protein (6.3-8.2) g/dL Albumin (3.5-5.0) g/dL Serum Alcohol mg/dL Blood Type O Positive Blood Type Confirm O Positive Blood Type Recheck No Previous Record Bld Type Recheck Status CABO Indicated Antibody Screen NEGATIVE Spec Expiration Date 06/13/20232344 Disposition Clinical Impression: Fall, Rib contusion, Failure to thrive, Weakness Disposition: ADMITTED IP TO THIS [facility] Condition: Stable Is patient prescribed a controlled substance at d/c from ED?: No Referrals: Joanne Bergman DO [Primary Care Provider] - 1-2 days Time of Disposition: 18:00 Decision to Admit Reason: Admit from EC Decision Date: 06/10/23 Decision Time: 18:00
[2023-06-11 08:50] LABS: Appearance,Urine Clear (Clear); Bilirubin,Urine Negative (Negative); Blood,Urine Negative (Negative); Color,Urine Yellow; Glucose,Urine (UA) Negative (Negative); Ketones,Urine Trace (Negative); Leukocyte Esterase,Urine Negative (Negative); Mucus,Urine Rare /hpf; Nitrite,Urine Negative (Negative); Protein,Urine 2+ (Negative); Specific Gravity,Urine 1.013 (1.001-1.035); Urobilinogen,Urine <2.0 mg/dL (<2.0); WBC,Urine 1 /hpf (0-5)
[2023-06-11 09:01] LABS: Amphetamine Screen,Urine Not Detected (NotDetected); Barbiturate Screen,Urine Not Detected (NotDetected); Benzodiazepines Screen,Urine Not Detected (NotDetected); Cocaine Screen,Urine Not Detected (NotDetected); Methadone Screen, Urine Not Detected (NotDetected); Opiate Screen,Urine Not Detected (NotDetected); Oxycodone Screen, Urine Not Detected (NotDetected); Phencyclidine Screen,Urine Not Detected (NotDetected); Tricyclic Antidepressant,Urine Not Detected (NotDetected); Urn Cannabinoid Scrn Not Detected (NotDetected)
[2023-06-11] MEDS ORDERED: LORATADINE 10 MG TAB PO PRN (10:33)
[2023-06-11] MEDS ORDERED: ALBUTEROL NEBULIZED 2.5 MG/3 ML INHALATION PRN (10:33)
[2023-06-11] MEDS ORDERED: COLCHICINE 0.6 MG EACH PO PRN (10:33)
--- NOTE | 2023-06-11 12:37 | P.CRDCN ---
History of Present Illness Consult date: 06/11/23 Consult reason: sycope History of present illness: History of present illness: This is an 82-year-old male patient of Dr. Monson with past medical history of coronary artery disease with prior stenting of the LAD, cardiomyopathy, lower extremity PAD, hypertension, hyperlipidemia, permanent atrial fibrillation on eliquis. We have been asked to evaluate the patient for syncopal episode. Patient presented to the emergency center for a fall that occurred on Saturday, no head injury, no loss of consciousness. Patient has not been eating or dri nking very much. His initial vital signs were stable. EKG atrial fibrillation with ventricular rate of 79 Chest x-ray: Chronic changes without acute pulmonary process. WBC 11.1, hemoglobin 15.8. INR 1.0. Sodium 135, potassium 4.3, creatinine 0.85. Liver function tests are normal. Troponin negative 1. Urinalysis negative for infection. Urine drug screen negative. Alcohol level less than 1 0. Home cardiac medications: Eliquis 2.5 mg twice daily, Lipitor 20 g at bedtime, Plavix 75 mg at bedtime, digoxin 125 g daily, Toprol-XL 12.5 mg daily Review Of Systems: At the time of my evaluation: Constitutional: No fever, no chills. + Generalized weakness. EENT: No headache. Lungs: No shortness of breath, cough, no sputum production. No wheezing. Cardiovascular: No chest pain, no lower extremity edema. No palpitations. No paroxysmal nocturnal dyspnea. No orthopnea. No lightheadedness or dizziness. No syncopal episodes. Abdominal: No abdominal pain. Musculoskeletal: No myalgias. + muscle weakness. Integumentary: No wounds. No rash. . Neurologic: No aphasia. No facial droop. No change in mentation. . Physical examination: Gen: This is an 82-year-old male. He is resting in bed and appears to be in no acute distress VS: reviewed HEENT: Head is atraumatic, normocephalic. Pupils equal, round. Sclerae is anicteric. NECK: Supple. No JVD. . LUNGS: Clear to auscultation. No wheezes or rhonchi. No intercostal retractions. HEART: Irregular rate and rhythm. ABDOMEN: Soft No tenderness. EXTREMITIES: No pedal edema. No calf tenderness. NEUROLOGICAL: Patient is awake, alert. Assessment: Fall History of coronary artery disease Cardiomyopathy 420 PAD Hypertension Hyperlipidemia Permanent atrial fibrillation Plan: Continue patient's home cardiac medications except for digoxin which will be discontinued Continue telemetry monitoring Obtain 2-D echocardiogram and Doppler study to assess cardiac structure and function Event monitor ordered for time of discharge Patient will follow up in the office with Dr. Monson 2-3 weeks after discharge. Cardiology will sign off this case and follow on an as-needed basis. Please reconsult for any new concerns. Thank you kindly for this consultation. Nurse practitioner note has been reviewed, I agree with documented findings and plan of care. Patient was seen and examined. Past Medical History Past Medical History: Atrial Flutter, Coronary Artery Disease (CAD), Heart Failure, COPD, GERD/Reflux, Hearing Disorder / Deafness, Hyperlipidemia, Hypertension, Osteoarthritis (OA), Renal Disease, Vascular Disorder Additional Past Medical History / Comment(s): hx. gout, hx. colon polyps, circulation problems in legs, slight decreased kidney function, shingles History of Any Multi-Drug Resistant Organisms: MRSA Date of last positivie culture/infection: 02/14/22 MDRO Source:: Right Thigh Past Surgical History: Cholecystectomy, Heart Catheterization, Heart Catheterization With Stent Additional Past Surgical History / Comment(s): right bone graft to collar bone Past Anesthesia/Blood Transfusion Reactions: No Reported Reaction Date of Last Stent Placement:: 05/2020 Past Psychological History: No Psychological Hx Reported Smoking Status: Former smoker Past Alcohol Use History: None Reported Additional Past Alcohol Use History / Comment(s): quit smoking 2014, smoked 1ppd- 2PPD STARTED SMOKING AT AGE 14 Past Drug Use History: None Reported - Past Family History Mother Family Medical History: No Reported History Medications and Allergies Home Medications Medication Instructions Recorded Confirmed Type Atorvastatin [Lipitor] 20 mg PO HS 10/17/18 06/10/23 History Apixaban [Eliquis] 2.5 mg PO BID 06/05/20 06/10/23 History Clopidogrel [Plavix] 75 mg PO HS 09/23/22 06/10/23 History Albuterol Inhaler [Ventolin Hfa 2 puff INHALATION RT-Q4H PRN 06/10/23 06/10/23 History Inhaler] Cetirizine HCl [Zyrtec] 10 mg PO DAILY PRN 06/10/23 06/10/23 History Colchicine 0.6 mg PO DAILY PRN 06/10/23 06/10/23 History Digoxin [Digitek] 125 mcg PO DAILY 06/10/23 06/10/23 History Escitalopram Oxalate [Lexapro] 10 mg PO DAILY 06/10/23 06/10/23 History Metoprolol Succinate (ER) [Toprol 12.5 mg PO DAILY 06/10/23 06/10/23 History Xl] allopurinoL 100 mg PO DAILY 06/10/23 06/10/23 History Allergies Allergy/AdvReac Type Severity Reaction Status Date / Time Penicillins Allergy Anaphylaxis Verified 06/10/23 17:07 Iodinated Contrast Media AdvReac Diarrhea, Verified 06/10/23 17:07 [Iodinated Contrast- Oral RASH and IV Dye] Physical Exam Vitals: Vital Signs Temp Pulse Pulse Resp BP BP BP 06/11/23 11:21 146/85 155/96 06/11/23 07:12 98.6 F 87 16 06/11/23 02:00 97.8 F 76 17 06/10/23 22:20 98.1 F 77 17 06/10/23 21:41 98.5 F 65 20 145/93 06/10/23 21:00 98.5 F 65 16 145/93 06/10/23 20:00 67 20 148/96 06/10/23 19:00 65 20 145/98 06/10/23 18:00 80 16 160/95 06/10/23 17:34 80 16 151/91 06/10/23 15:34 77 20 135/76 06/10/23 15:31 98.4 F 83 16 152/82 BP BP Pulse Ox 06/11/23 11:21 154/95 06/11/23 07:12 157/88 93 L 06/11/23 02:00 166/83 93 L 06/10/23 22:20 169/93 95 06/10/23 21:41 96 06/10/23 21:00 96 06/10/23 20:00 98 06/10/23 19:00 98 06/10/23 18:00 98 06/10/23 17:34 98 06/10/23 15:34 95 06/10/23 15:31 94 L Intake and Output 06/10/23 06/11/23 06/11/23 22:59 06:59 14:59 Intake Total 200 Balance 200 Intake: Oral 200 Other: Weight 77.111 kg Results 06/10/23 16:34 06/10/23 16:34 Cardiac Enzymes 06/10/23 06/10/23 Range/Units 16:34 16:34 AST 19 (17-59) U/L Troponin I 0.014 (0.000-0.034) ng/mL Coagulation 06/10/23 Range/Units 16:34 PT 11.6 (9.0-12.0) sec APTT 31.5 H (22.0-30.0) sec CBC 06/10/23 Range/Units 16:34 WBC 11.1 H (3.8-10.6) k/uL RBC 5.14 (4.30-5.90) m/uL Hgb 15.8 (13.0-17.5) gm/dL Hct 48.0 (39.0-53.0) % Plt Count 225 (150-450) k/uL Comprehensive Metabolic Panel 06/10/23 Range/Units 16:34 Sodium 135 L (137-145) mmol/L Potassium 4.3 (3.5-5.1) mmol/L Chloride 98 (98-107) mmol/L Carbon Dioxide 26 (22-30) mmol/L BUN 19 (9-20) mg/dL Creatinine 0.85 (0.66-1.25) mg/dL Glucose 85 (74-99) mg/dL Calcium 10.0 (8.4-10.2) mg/dL AST 19 (17-59) U/L ALT 14 (4-49) U/L Alkaline Phosphatase 104 (38-126) U/L Total Protein 7.2 (6.3-8.2) g/dL Albumin 4.0 (3.5-5.0) g/dL Current Medications Generic Name Dose Route Start Last Admin Trade Name Freq PRN Reason Stop Dose Admin Albuterol Sulfate 2.5 mg 06/11/23 10:33 Albuterol Nebulized 2.5 Mg/3 Ml INHALATION RT-Q4H PRN Shortness Of Breath Allopurinol 100 mg 06/12/23 09:00 Allopurinol 100 Mg Tab PO DAILY [facility] Apixaban 2.5 mg 06/11/23 21:00 Apixaban 2.5 Mg Tablet PO BID [facility] Protocol Atorvastatin Calcium 20 mg 08/08/23 21:00 Atorvastatin 20 Mg Tab PO HS [facility] Clopidogrel Bisulfate 75 mg 06/11/23 21:00 Clopidogrel 75 Mg Tab PO HS [facility] Colchicine 0.6 mg 06/11/23 10:33 Colchicine 0.6 Mg Each PO DAILY PRN gout Escitalopram Oxalate 10 mg 06/12/23 09:00 Escitalopram 10 Mg Tab PO DAILY [facility] Loratadine 10 mg 06/11/23 10:33 Loratadine 10 Mg Tab PO DAILY PRN Allergy Symptoms Metoprolol Succinate 12.5 mg 06/12/23 09:00 Metoprolol Succinate (Er) 25 Mg Tab.Er.24h PO DAILY [facility] Naloxone HCl 0.2 mg 06/10/23 18:50 Naloxone 0.4 Mg/Ml 1 Ml Vial IV Q2M PRN Opioid Reversal Intake and Output 06/10/23 06/11/23 06/11/23 22:59 06:59 14:59 Intake Total 200 Balance 200 Intake: Oral 200 Other: Weight 77.111 kg 06/10/23 16:34 06/10/23 16:34
--- NOTE | 2023-06-11 13:25 | P.CNOR ---
History of Present Illness - [facility] Consult date: 06/11/23 Requesting physician: Kan Sung Consult reason: other (wrist fracture) History of present illness: Patient is an 82 y/o male who presented the emergency department yesterday due to a fall at home. Patient does have past medical history significant for diabetes as well as atrial fibrillation for which she is on eliquis. Orthopedics was consulted for left wrist fracture. X-rays throughout left wrist was performed. Patient states she did have a fall about a week ago in which she thinks he originally injured his left hand. Patient says it is very painful to move his left hand at this time. Patient says he is able to flex/extend his left elbow and can wiggle the digits in his left hand. Patient states that he does use a walker to ambulate. Patient says he has difficulty in doing with walker since the injury to the hand because he says it is difficult to put weight on the left hand. Patient denies any other traumas. Patient denies any previous surgery to the left hand. Patient denies chest pain, fever, shortness breath, nausea, vomiting, loss of bowel/bladder control. Past Medical History Past Medical History: Atrial Flutter, Coronary Artery Disease (CAD), Heart Failure, COPD, GERD/Reflux, Hearing Disorder / Deafness, Hyperlipidemia, Hypertension, Osteoarthritis (OA), Renal Disease, Vascular Disorder Additional Past Medical History / Comment(s): hx. gout, hx. colon polyps, circulation problems in legs, slight decreased kidney function, shingles History of Any Multi-Drug Resistant Organisms: MRSA Year Discovered:: 02/14/22 MDRO Source:: Right Thigh Past Surgical History: Cholecystectomy, Heart Catheterization, Heart Catheterization With Stent Additional Past Surgical History / Comment(s): right bone graft to collar bone Past Anesthesia/Blood Transfusion Reactions: No Reported Reaction Date of Last Stent Placement:: 05/2020 Past Psychological History: No Psychological Hx Reported Smoking Status: Former smoker Past Alcohol Use History: None Reported Additional Past Alcohol Use History / Comment(s): quit smoking 2014, smoked 1ppd- 2PPD STARTED SMOKING AT AGE 14 Past Drug Use History: None Reported - Past Family History Mother Family Medical History: No Reported History Medications and Allergies Home Medications Medication Instructions Recorded Confirmed Type Atorvastatin [Lipitor] 20 mg PO HS 10/17/18 06/10/23 History Apixaban [Eliquis] 2.5 mg PO BID 06/05/20 06/10/23 History Clopidogrel [Plavix] 75 mg PO HS 09/23/22 06/10/23 History Albuterol Inhaler [Ventolin Hfa 2 puff INHALATION RT-Q4H PRN 06/10/23 06/10/23 History Inhaler] Cetirizine HCl [Zyrtec] 10 mg PO DAILY PRN 06/10/23 06/10/23 History Colchicine 0.6 mg PO DAILY PRN 06/10/23 06/10/23 History Digoxin [Digitek] 125 mcg PO DAILY 06/10/23 06/10/23 History Escitalopram Oxalate [Lexapro] 10 mg PO DAILY 06/10/23 06/10/23 History Metoprolol Succinate (ER) [Toprol 12.5 mg PO DAILY 06/10/23 06/10/23 History Xl] allopurinoL 100 mg PO DAILY 06/10/23 06/10/23 History Allergies Allergy/AdvReac Type Severity Reaction Status Date / Time Penicillins Allergy Anaphylaxis Verified 06/10/23 17:07 Iodinated Contrast Media AdvReac Diarrhea, Verified 06/10/23 17:07 [Iodinated Contrast- Oral RASH and IV Dye] Physical Examination Left hand does present with some swelling and ecchymosis/erythema over the dorsu m. There is also some ecchymosis present at the base of the left thumb on the palmar side. Negative for any open wounds/fractures. Sensation is equal, symmetric, by intact throughout the upper extremities. There is moderatesevere tenderness to palpation over the base of the thumb and base of the hand on the left palmar aspect as well as the dorsum of the hand. Nontender to palpation throughout rest of exam. Patient does have limited range of motion the left wrist flexion/extension secondary to referred pain to the hand. Patient does have full range of motion in digits 2 through 4 and extension. There is L range of motion in the left thumb due to pain referred to the palm of the hand. [employer] strength 3/5 in the left hand. 3/5 in resisted left wrist flexion/extension. 4/5 in resisted elbow flexion and extension on the left upper extremity. Radial pulses intact bilaterally. Cap refill under 3 seconds in digits of upper extremities. Negative Homans bilaterally. Results - Labs Labs: Abnormal Lab Results - Last 24 Hours (Table) 06/10/23 06/10/23 06/10/23 Range/Units 16:34 16:34 16:34 WBC 11.1 H (3.8-10.6) k/uL Neutrophils # 8.3 H (1.3-7.7) k/uL Monocytes # 1.2 H (0-1.0) k/uL APTT 31.5 H (22.0-30.0) sec Sodium 135 L (137-145) mmol/L Urine Protein (Negative) Urine Ketones (Negative) Urine Mucus (None) /hpf 06/11/23 Range/Units 08:30 WBC (3.8-10.6) k/uL Neutrophils # (1.3-7.7) k/uL Monocytes # (0-1.0) k/uL APTT (22.0-30.0) sec Sodium (137-145) mmol/L Urine Protein 2+ H (Negative) Urine Ketones Trace H (Negative) Urine Mucus Rare H (None) /hpf H & H 06/10/23 Range/Units 16:34 Hgb 15.8 (13.0-17.5) gm/dL Hct 48.0 (39.0-53.0) % Coagulation 06/10/23 Range/Units 16:34 INR 1.1 (<1.2) Result Diagrams: 06/10/23 16:34 06/10/23 16:34 - Diagnostic results Wrist/Hand x-ray: report reviewed, image reviewed (Wrist x-ray of the left hand does reveal dorsal triquetral avulsion fracture.) Assessment and Plan Assessment: Left hand dorsal triquetral avulsion fracture Plan: 1. Left hand dorsal triquetral avulsion fracture - x-ray left hand does reveal fracture in the carpal bones. I did consult with my attending, Dr. Lindquist about exam findings and x-ray. At this time we are not recommending any emergent/urgent orthopedic surgical intervention. We are recommending patient to be in a wrist brace to the left hand. script for wrist brace placed in patient's chart. Patient is stable from an orthopedic standpoint for discharge. We do recommend patient to follow-up in the outpatient setting with Dr. Lindquist in 4-6 weeks for continued evaluation. Orthopedics is signing off. Please do not hesitate to contact us for any further questions. 2. Appreciate medical management 3. Pain management recs 4. DVT prophylaxis - plavix; eliquis 5. GI prophylaxis recs 6. PT/OT recs 7. Encourage incentive spirometer use 8. Appreciate consult Time with Patient: Less than 30
--- NOTE | 2023-06-11 14:02 | P.HPIM ---
History of Present Illness H&P Date: 06/11/23 History of present illness; patient is a 82-year-old gentleman with past medical history significant for atrial fibrillation, hypertension for the ER because of fall. Patient to follow on Saturday, patient apparently felt lightheaded and fell between 2 chairs hitting his left side. There was no complain of loss of consciousness. Patient was complaining of dizziness prior to that episode. Denied any chest pain. Denied any palpitations. Denies any shortness of breath. Patient on Eliquis, Toprol and digoxin. Because of this fall, patient brought to the ER Initial lab work done in the ER showed a PVC 11.1, hemoglobin 15.8, platelet count 225, sodium 139, potassium 4.3, BUN 19, creatinine 0.85 CT head and cervical spine done showed no acute internal process. No evidence of cervical spine fracture X-ray left wrist done showed showed lucency of the lunate on the ulnar aspect. X-ray pelvis done showed no acute osseous pathology Chest x-ray done in the ER showed no acute pulmonary process Patient admitted to medicine service REVIEW OF SYSTEMS: CONSTITUTIONAL: No fever, no malaise, no fatigue. HEENT: No recent visual problems or hearing problems. Denied any sore throat. CARDIOVASCULAR: As mentioned in HPI PULMONARY: No shortness of breath, no cough, no hemoptysis. GASTROINTESTINAL: No diarrhea, no nausea, no vomiting, no abdominal pain. NEUROLOGICAL: No headaches, no weakness, no numbness. HEMATOLOGICAL: Denies any bleeding or petechiae. GENITOURINARY: Denies any burning micturition, frequency, or urgency. MUSCULOSKELETAL/RHEUMATOLOGICAL: Complaining of left wrist pain ENDOCRINE: Denies any polyuria or polydipsia. The rest of the 14-point review of systems is negative. PHYSICAL EXAMINATION: GENERAL: The patient is alert and oriented x3, not in any acute distress. Well developed, well nourished. HEENT: Pupils are round and equally reacting to light. EOMI. No scleral icterus. No conjunctival pallor. Normocephalic, atraumatic. No pharyngeal erythema. No thyromegaly. CARDIOVASCULAR: S1 and S2 present. No murmurs, rubs, or gallops. PULMONARY: Chest is clear to auscultation, no wheezing or crackles. ABDOMEN: Soft, nontender, nondistended, normoactive bowel sounds. No palpable organomegaly. MUSCULOSKELETAL: ; Left wrist swollen EXTREMITIES: No cyanosis, clubbing, or pedal edema. NEUROLOGICAL: Gross neurological examination did not reveal any focal deficits. SKIN: No rashes. Assessment and plan Fall Presyncope Left wrist fracture History of atrial fibrillation Hypertension Hyperlipidemia Monitor vital signs Monitor CBC Monitor CMP Continue telemetry monitoring Check orthostatics Current troponins. Resume Toprol, hold digoxin. Consult cardiology Consult PT and OT Labs and medication were reviewed.. Continue same treatment. Continue with symptomatic treatment. Resume home medication. Monitor labs and vitals. DVT and GI prophylaxis. Further recommendations as per clinical course of the patient Dictation was produced using [employer] dictation software. please excuse any grammatical, word or spelling errors. Past Medical History Past Medical History: Atrial Flutter, Coronary Artery Disease (CAD), Heart Failure, COPD, GERD/Reflux, Hearing Disorder / Deafness, Hyperlipidemia, Hypertension, Osteoarthritis (OA), Renal Disease, Vascular Disorder Additional Past Medical History / Comment(s): hx. gout, hx. colon polyps, circulation problems in legs, slight decreased kidney function, shingles History of Any Multi-Drug Resistant Organisms: MRSA Date of last positivie culture/infection: 02/14/22 MDRO Source:: Right Thigh Past Surgical History: Cholecystectomy, Heart Catheterization, Heart Catheterization With Stent Additional Past Surgical History / Comment(s): right bone graft to collar bone Past Anesthesia/Blood Transfusion Reactions: No Reported Reaction Date of Last Stent Placement:: 05/2020 Past Psychological History: No Psychological Hx Reported Smoking Status: Former smoker Past Alcohol Use History: None Reported Additional Past Alcohol Use History / Comment(s): quit smoking 2014, smoked 1ppd- 2PPD STARTED SMOKING AT AGE 14 Past Drug Use History: None Reported - Past Family History Mother Family Medical History: No Reported History Medications and Allergies Home Medications Medication Instructions Recorded Confirmed Type Atorvastatin [Lipitor] 20 mg PO HS 10/17/18 06/10/23 History Apixaban [Eliquis] 2.5 mg PO BID 06/05/20 06/10/23 History Clopidogrel [Plavix] 75 mg PO HS 09/23/22 06/10/23 History Albuterol Inhaler [Ventolin Hfa 2 puff INHALATION RT-Q4H PRN 06/10/23 06/10/23 History Inhaler] Cetirizine HCl [Zyrtec] 10 mg PO DAILY PRN 06/10/23 06/10/23 History Colchicine 0.6 mg PO DAILY PRN 06/10/23 06/10/23 History Digoxin [Digitek] 125 mcg PO DAILY 06/10/23 06/10/23 History Escitalopram Oxalate [Lexapro] 10 mg PO DAILY 06/10/23 06/10/23 History Metoprolol Succinate (ER) [Toprol 12.5 mg PO DAILY 06/10/23 06/10/23 History Xl] allopurinoL 100 mg PO DAILY 06/10/23 06/10/23 History Allergies Allergy/AdvReac Type Severity Reaction Status Date / Time Penicillins Allergy Anaphylaxis Verified 06/10/23 17:07 Iodinated Contrast Media AdvReac Diarrhea, Verified 06/10/23 17:07 [Iodinated Contrast- Oral RASH and IV Dye] Physical Exam Vitals: Vital Signs Temp Pulse Pulse Resp BP BP Pulse Ox 06/11/23 07:12 98.6 F 87 16 157/88 93 L 06/11/23 02:00 97.8 F 76 17 166/83 93 L 06/10/23 22:20 98.1 F 77 17 169/93 95 06/10/23 21:41 98.5 F 65 20 145/93 96 06/10/23 21:00 98.5 F 65 16 145/93 96 06/10/23 20:00 67 20 148/96 98 06/10/23 19:00 65 20 145/98 98 06/10/23 18:00 80 16 160/95 98 06/10/23 17:34 80 16 151/91 98 06/10/23 15:34 77 20 135/76 95 06/10/23 15:31 98.4 F 83 16 152/82 94 L Intake and Output 06/10/23 06/11/23 06/11/23 22:59 06:59 14:59 Intake Total 200 Balance 200 Intake: Oral 200 Other: Weight 77.111 kg Results CBC & Chem 7: 06/10/23 16:34 06/10/23 16:34 Labs: Abnormal Lab Results - Last 24 Hours (Table) 06/10/23 06/10/23 06/10/23 Range/Units 16:34 16:34 16:34 WBC 11.1 H (3.8-10.6) k/uL Neutrophils # 8.3 H (1.3-7.7) k/uL Monocytes # 1.2 H (0-1.0) k/uL APTT 31.5 H (22.0-30.0) sec Sodium 135 L (137-145) mmol/L Urine Protein (Negative) Urine Ketones (Negative) Urine Mucus (None) /hpf 06/11/23 Range/Units 08:30 WBC (3.8-10.6) k/uL Neutrophils # (1.3-7.7) k/uL Monocytes # (0-1.0) k/uL APTT (22.0-30.0) sec Sodium (137-145) mmol/L Urine Protein 2+ H (Negative) Urine Ketones Trace H (Negative) Urine Mucus Rare H (None) /hpf Thrombosis Risk Factor Assmnt - Choose All That Apply Any of the Below Risk Factors Present?: Yes Each Risk Factor Represents 3 Points: Age 75 years or older Thrombosis Risk Factor Assessment Total Risk Factor Score: 3 Thrombosis Risk Factor Assessment Level: Moderate Risk
--- NOTE | 2023-06-11 14:43 | XR ---
EXAMINATION TYPE: XR shoulder complete LT DATE OF EXAM: 06/11/2023 CLINICAL HISTORY: pain COMPARISON: NONE TECHNIQUE: Three views of the left shoulder are obtained. FINDINGS: There is no acute fracture/dislocation evident. The acromioclavicular and glenohumeral sommer int spaces appear mildly narrowed. The visualized ribs are intact and unremarkable. IMPRESSION: 1. There is no acute fracture or dislocation. ICD 10 NO FRACTURE, INITIAL EVALUATION
[2023-06-11] MEDS: ATORVASTATIN 20 MG TAB PO SCH (21:27)
[2023-06-11] MEDS: APIXABAN 2.5 MG TABLET PO SCH (21:27)
[2023-06-11] MEDS: CLOPIDOGREL 75 MG TAB PO SCH (21:28)
[2023-06-12] MEDS: APIXABAN 2.5 MG TABLET PO SCH ×2 (08:42→21:26)
[2023-06-12] MEDS: METOPROLOL SUCCINATE (ER) 25 MG TAB.ER.24H PO SCH (08:42)
[2023-06-12] MEDS: ESCITALOPRAM 10 MG TAB PO SCH (08:42)
[2023-06-12] MEDS: allopurinoL 100 MG TAB PO SCH (08:42)
[2023-06-12] MEDS ORDERED: DIGOXIN 62.5 MCG TAB PO SCH (09:00)
--- NOTE | 2023-06-12 09:52 | CA ---
Transthoracic Echo Report Name: Balwinder Lucero Age: 82 Gender: M : 1940 Exam Date: 06/11/2023 13:24 Exam Location: [facility] Ht (in): 72 Wt (lb): 170 Ordering Physician: Natalie Collado Attending/Referring Phys: [id number], [employer] Captain Evelin Naranjo RDCS Procedure CPT: Indications: LVF Cardiac Hx: Hx of stent, CAD, HTN, HIGH CHOLESTEROL Technical Quality: Good Contrast 1: Total Dose (mL): Contrast 2: Total Dose (mL): MEASUREMENTS (Male / Female) Normal Values 2D ECHO LV Diastolic Diameter PLAX 5.4 cm 4.2 - 5.9 / 3.9 - 5.3 cm LV Systolic Diameter PLAX 4.3 cm IVS Diastolic Thickness 1.2 cm 0.6 - 1.0 / 0.6 - 0.9 cm LVPW Diastolic Thickness 1.2 cm 0.6 - 1.0 / 0.6 - 0.9 cm LV Relative Wall Thickness 0.4 RV Internal Dim ED PLAX 2.9 cm LVOT Diameter 2.3 cm LA Systolic Diameter LX 3.4 cm 3.0 - 4.0 / 2.7 - 3.8 cm LV Diastolic Volume MOD 4C 140.5 cm??? LV Systolic Volume MOD 4C 84.5 cm??? LV Ejection Fraction MOD 4C 39.8 % LV Cardiac Index MOD 4C 2403.0 cm???/min???m??? LV Diastolic Length 4C 8.7 cm LV Systolic Length 4C 7.6 cm LV Diastolic Volume MOD 2C 131.0 cm??? LV Systolic Volume MOD 2C 77.0 cm??? LV Ejection Fraction MOD 2C 41.2 % LV Cardiac Index MOD 2C 2319.7 cm???/min???m??? LV Diastolic Length 2C 8.4 cm LV Systolic Length 2C 7.3 cm LA Volume 43.9 cm??? 18 - 58 / 22 - 52 cm??? M-MODE Aortic Root Diameter MM 3.6 cm MV E Point Septal Separation 1.0 cm AV Cusp Separation MM 1.5 cm DOPPLER AV Peak Velocity 161.6 cm/s AV Peak Gradient 10.4 mmHg AV Mean Velocity 109.3 cm/s AV Mean Gradient 5.6 mmHg AV Velocity Time Integral 26.7 cm LVOT Peak Velocity 81.2 cm/s LVOT Peak Gradient 2.6 mmHg AV Area Cont Eq pk 2.1 cm??? MV Deceleration Time 176.7 ms TR Peak Velocity 250.3 cm/s TR Peak Gradient 25.1 mmHg Right Ventricular Systolic Press 29.4 mmHg FINDINGS Left Ventricle Left ventricular ejection fraction is estimated at 45-50 %. Left ventricular cavity size normal. Mildly increased septal wall thickness. Mildly decrease in contractility globally Right Ventricle Normal right ventricular size. Right ventricular systolic pressure within normal limits. Mildly reduced right ventricular global systolic function. Right Atrium Normal right atrial size. Left Atrium Normal left atrial size. Mitral Valve Mitral valve thickened. No mitral stenosis, regurgitation or prolapse. Aortic Valve Aortic valve sclerosis. No aortic valve stenosis or regurgitation. Tricuspid Valve Structurally normal tricuspid valve. Mild tricuspid regurgitation. Pulmonic Valve Pulmonic valve not well visualized. No pulmonic regurgitation. Pericardium Normal pericardium. No pericardial effusion. Aorta Normal size aortic root and proximal ascending aorta. CONCLUSIONS Normal LV size mild decrease in global contractility. No pulmonary hypertension. No significant abnormality in the Doppler exam no pericardial effusion. No pulmonary hypertension Previewed by: Dr. Phil Chapa MD (Electronically Signed) Final Date: 12 June 2023 09:51
[2023-06-12 10:11] LABS: Basophils % (A) 0 %; Eosinophils # (A) 0.2 k/uL (0-0.7); Eosinophils % (A) 2 %; HCT 46.4 % (39.0-53.0); Lymphocytes % (A) 9 %; MCH 30.4 pg (25.0-35.0); MCHC 32.3 g/dL (31.0-37.0); MCV 94.1 fL (80.0-100.0); Mean Platelet Volume 9.5; Monocytes # (A) 0.9 k/uL (0-1.0); Monocytes % (A) 9 %; Neutrophils % (A) 77 %; Platelet Count 211 k/uL (150-450); RBC 4.93 m/uL (4.30-5.90); RDW 15.3 % (11.5-15.5); WBC 10.3 k/uL (3.8-10.6)
[2023-06-12 11:01] LABS: BUN/Creat Ratio 17.44 Ratio (12.00-20.00); Blood Urea Nitrogen 15.7 mg/dL (9.0-27.0); Calcium 9.6 mg/dL (8.7-10.3); Carbon Dioxide 25.5 mmol/L (21.6-31.8); Chloride 101 mmol/L (96-109); Glucose 108 mg/dL (70-110); Potassium 3.7 mmol/L (3.5-5.5); Sodium 139 mmol/L (135-145)
--- NOTE | 2023-06-12 12:07 | P.PN ---
Subjective Progress Note Date: 06/12/23 patient is a 82-year-old gentleman with past medical history significant for atrial fibrillation, hypertension for the ER because of fall. Patient to follow on Saturday, patient apparently felt lightheaded and fell between 2 chairs hitting his left side. There was no complain of loss of consciousness. Patient was complaining of dizziness prior to that episode. Denied any chest pain. Denied any palpitations. Denies any shortness of breath. Patient on Eliquis, Toprol and digoxin. Because of this fall, patient brought to the ER Initial lab work done in the ER showed a PVC 11.1, hemoglobin 15.8, platelet count 225, sodium 139, potassium 4.3, BUN 19, creatinine 0.85 CT head and cervical spine done showed no acute internal process. No evidence of cervical spine fracture X-ray left wrist done showed showed lucency of the lunate on the ulnar aspect. X-ray pelvis done showed no acute osseous pathology Chest x-ray done in the ER showed no acute pulmonary process Patient admitted to medicine service 06/12. Patient seen and examined. No acute issues overnight, left wrist pain is improved. PT and OT recommended rehab REVIEW OF SYSTEMS: CONSTITUTIONAL: No fever, no malaise,. CARDIOVASCULAR: No chest pain, no palpitations, no syncope. PULMONARY: No shortness of breath, no cough, GASTROINTESTINAL: No diarrhea, no nausea, no vomiting, no abdominal pain. NEUROLOGICAL: No headaches, no weakness, PHYSICAL EXAMINATION: GENERAL: The patient is alert and oriented x3, not in any acute distress. Well developed, well nourished. HEENT: Pupils are round and equally reacting to light. EOMI. No scleral icterus. No conjunctival pallor. Normocephalic, atraumatic. No pharyngeal erythema. No thyromegaly. CARDIOVASCULAR: S1 and S2 present. No murmurs, rubs, or gallops. PULMONARY: Chest is clear to auscultation, no wheezing or crackles. ABDOMEN: Soft, nontender, nondistended, normoactive bowel sounds. No palpable organomegaly. MUSCULOSKELETAL: No joint swelling or deformity. Left wrist brace seen EXTREMITIES: No cyanosis, clubbing, or pedal edema. NEUROLOGICAL: Gross neurological examination did not reveal any focal deficits. SKIN: No rashes. Assessment and plan Fall Presyncope Left wrist fracture History of atrial fibrillation Hypertension Hyperlipidemia Monitor vital signs Monitor CBC Monitor CMP Check orthostatics Orthopedic evaluated the patient, recommended wrist brace for the wrist fracture Cardiology evaluated the patient recommended discontinuing digoxin, continue Toprol PT and OT recommended rehab Labs and medication were reviewed.. Continue same treatment. Continue with symptomatic treatment. Resume home medication. Monitor labs and vitals. DVT and GI prophylaxis. Further recommendations as per clinical course of the patient Dictation was produced using [employer] dictation software. please excuse any grammatical, word or spelling errors. Objective - Vital Signs Vital signs: Vital Signs Temp 98.3 F 06/12/23 07:17 Pulse 95 06/12/23 07:17 Resp 16 06/12/23 07:17 BP 150/84 06/12/23 07:17 Pulse Ox 93 L 06/12/23 08:47 FiO2 Intake & Output 06/11/23 06/12/23 06/12/23 18:59 06:59 18:59 Intake Total 480 Output Total 400 Balance 80 Intake: Oral 480 Output: Urine 400 Other: # Voids 1 2 # Bowel Movements 0 - Labs CBC & Chem 7: 06/12/23 04:54 06/12/23 04:54
[2023-06-12 13:43] VITALS: BMI 23.0
[2023-06-12] MEDS: ATORVASTATIN 20 MG TAB PO SCH (21:26)
[2023-06-12] MEDS: CLOPIDOGREL 75 MG TAB PO SCH (21:27)
[2023-06-13 07:55] VITALS: BP 152/90; PULSE 85; RESP 17; TEMP 98.2
[2023-06-13] MEDS: METOPROLOL SUCCINATE (ER) 25 MG TAB.ER.24H PO SCH (08:24)
[2023-06-13] MEDS: APIXABAN 2.5 MG TABLET PO SCH (08:24)
[2023-06-13] MEDS: ESCITALOPRAM 10 MG TAB PO SCH (08:24)
[2023-06-13] MEDS: allopurinoL 100 MG TAB PO SCH (08:24)
--- NOTE | 2023-06-13 13:07 | P.DS ---
Providers Date of admission: 06/10/23 18:51 Expected date of discharge: 06/13/23 Attending physician: Nathanael Kendrick Consults: 06/11/23 10:35 Consult Physician Routine Consulting Provider: Stef Monson Consult Reason/Comments: Syncopal episode Do you want consulting provider notified?: Yes 06/11/23 11:12 Consult Physician Routine Consulting Provider: Chandan Lindquist Consult Reason/Comments: left wrist fx Do you want consulting provider notified?: Yes Primary care physician: Joanne Bergman Hospital Course: Discharge diagnoses; Fall Presyncope Left wrist fracture History of atrial fibrillation Hypertension Hyperlipidemia Hospital course; patient is a 82-year-old gentleman with past medical history significant for atrial fibrillation, hypertension for the ER because of fall. Patient to follow on Saturday, patient apparently felt lightheaded and fell between 2 chairs hitting his left side. There was no complain of loss of consciousness. Patient was complaining of dizziness prior to that episode. Denied any chest pain. Denied any palpitations. Denies any shortness of breath. Patient on Eliquis, Toprol and digoxin. Because of this fall, patient brought to the ER Initial lab work done in the ER showed a PVC 11.1, hemoglobin 15.8, platelet count 225, sodium 139, potassium 4.3, BUN 19, creatinine 0.85 CT head and cervical spine done showed no acute internal process. No evidence of cervical spine fracture X-ray left wrist done showed showed lucency of the lunate on the ulnar aspect. X-ray pelvis done showed no acute osseous pathology Chest x-ray done in the ER showed no acute pulmonary process Patient admitted to medicine service 06/12. Patient seen and examined. No acute issues overnight, left wrist pain is improved. PT and OT recommended rehab 06/13. Patient seen and examined. Being discharged to rehab in stable condition. Cardiology recommended discontinuing digoxin PHYSICAL EXAMINATION: GENERAL: The patient is alert and oriented x3, not in any acute distress. Well developed, well nourished. HEENT: Pupils are round and equally reacting to light. EOMI. No scleral icterus. No conjunctival pallor. Normocephalic, atraumatic. No pharyngeal erythema. No thyromegaly. CARDIOVASCULAR: S1 and S2 present. No murmurs, rubs, or gallops. PULMONARY: Chest is clear to auscultation, no wheezing or crackles. ABDOMEN: Soft, nontender, nondistended, normoactive bowel sounds. No palpable organomegaly. MUSCULOSKELETAL: No joint swelling or deformity. Left wrist brace EXTREMITIES: No cyanosis, clubbing, or pedal edema. NEUROLOGICAL: Gross neurological examination did not reveal any focal deficits. SKIN: No rashes. Dictation was produced using [employer] dictation software. please excuse any grammatical, word or spelling errors. Patient Condition at Discharge: Stable Plan - Discharge Summary Discharge Rx Participant: Yes New Discharge Prescriptions: Continue Atorvastatin [Lipitor] 20 mg PO HS Apixaban [Eliquis] 2.5 mg PO BID Clopidogrel [Plavix] 75 mg PO HS Escitalopram Oxalate [Lexapro] 10 mg PO DAILY Cetirizine HCl [Zyrtec] 10 mg PO DAILY PRN PRN Reason: Allergy Symptoms allopurinoL 100 mg PO DAILY Albuterol Inhaler [Ventolin Hfa Inhaler] 2 puff INHALATION RT-Q4H PRN PRN Reason: Shortness Of Breath Metoprolol Succinate (ER) [Toprol XL] 12.5 mg PO DAILY Colchicine 0.6 mg PO DAILY PRN PRN Reason: gout Discontinued Digoxin [Digitek] 125 mcg PO DAILY Discharge Medication List Atorvastatin [Lipitor] 20 mg PO HS 10/17/18 [History] Apixaban [Eliquis] 2.5 mg PO BID 06/05/20 [History] Clopidogrel [Plavix] 75 mg PO HS 09/23/22 [History] Albuterol Inhaler [Ventolin Hfa Inhaler] 2 puff INHALATION RT-Q4H PRN 06/10/23 [History] Cetirizine HCl [Zyrtec] 10 mg PO DAILY PRN 06/10/23 [History] Colchicine 0.6 mg PO DAILY PRN 06/10/23 [History] Escitalopram Oxalate [Lexapro] 10 mg PO DAILY 06/10/23 [History] Metoprolol Succinate (ER) [Toprol XL] 12.5 mg PO DAILY 06/10/23 [History] allopurinoL 100 mg PO DAILY 06/10/23 [History] Follow up Appointment(s)/Referral(s): Joanne Bergman DO [Primary Care Provider] - 06/17/23 11:40 am (Please bring your discharge paperwork to your follow up appointment. Thank you.) [facility] [[facility]FF] - 1-2 Days Ramon Holly MD [STAFF PHYSICIAN] - 06/26/23 3:00 pm Discharge Disposition: TRANSFER TO SNF/ECF
[2023-06-13 14:05] LABS: Albumin 3.8 d/dL (3.8-4.9); Total Bilirubin 0.7 mg/dL (0.3-1.2); Total Protein 6.2 d/dL (6.2-8.2)
== END 2023-06-13 14:47 | DRG 563 ==
LOC: EC 15:26 → 5NMEDONC 18:51 → 4SSUR 20:11
PROVIDERS: ADMIT Hospitalist; ATTEND Hospitalist
DX: S62.102A Fracture of unspecified carpal bone, left wrist, initial encounter for closed fracture (principal); I42.9 Cardiomyopathy, unspecified; I48.21 Permanent atrial fibrillation; I48.92 Unspecified atrial flutter; I73.9 Peripheral vascular disease, unspecified; R62.7 Adult failure to thrive; J44.9 Chronic obstructive pulmonary disease, unspecified; S20.219A Contusion of unspecified front wall of thorax, initial encounter; S60.212A Contusion of left wrist, initial encounter; I11.0 Hypertensive heart disease with heart failure; S09.90XA Unspecified injury of head, initial encounter; R55 Syncope and collapse; H81.90 Unspecified disorder of vestibular function, unspecified ear; I49.3 Ventricular premature depolarization; I50.9 Heart failure, unspecified; I25.10 Atherosclerotic heart disease of native coronary artery without angina pectoris; E78.5 Hyperlipidemia, unspecified; Z79.01 Long term (current) use of anticoagulants; Z79.02 Long term (current) use of antithrombotics/antiplatelets; Z95.5 Presence of coronary angioplasty implant and graft; I07.1 Rheumatic tricuspid insufficiency; M19.90 Unspecified osteoarthritis, unspecified site; M10.9 Gout, unspecified; W19.XXXA Unspecified fall, initial encounter; Z86.16 Personal history of COVID-19; Z91.041 Radiographic dye allergy status; Z88.0 Allergy status to penicillin; H91.90 Unspecified hearing loss, unspecified ear; Y92.009 Unspecified place in unspecified non-institutional (private) residence as the place of occurrence of the external cause; Z79.899 Other long term (current) drug therapy; Z87.19 Personal history of other diseases of the digestive system; Z86.010 Personal history of colon polyps
CPT/HCPCS: 36415; 70450; 71045; 72125; 72170; 80053; 80306; 80320; 81001; 82040; 82247; 84075; 84155; 84450; 84460; 84484; 85025; 85610; 85730; 86850; 86900; 86901; 93005; 93270; 93306; 94760; 99285

== ENCOUNTER 2025-03-11 15:23 | Inpatient (IN) | payer BC, MEDICARE ==
--- NOTE | 2025-03-11 16:12 | ED ---
General Adult HPI - General Chief complaint: Recheck/Abnormal Lab/Rx Stated complaint: Failure to thrive Time Seen by Provider: 03/11/25 15:44 Source: EMS Mode of arrival: EMS Limitations: altered mental status - History of Present Illness Initial comments: Dictation was produced using [employer] dictation software. please excuse any grammatical, word or spelling errors. Chief Complaint: 84-year-old male presents to the ER for failure to thrive History of Present Illness: Patient is 84-year-old male presents from the care home. Patient allegedly is full code. Patient is a poor historian. History present illness obtained from nurse received report from EMS. Allegedly over the last several weeks patient has been showing signs of failure to thrive including poor oral intake, 20 pound weight loss and significant debility with performs activities of daily living including standing up walking and caring for himself. Patient states he feels weak. Denies any fever chills or night sweats. No pain complaints. The ROS documented in this emergency department record has been reviewed and confirmed by me. Those systems with pertinent positive or negative responses have been documented in the HPI. All other systems are other negative and/or noncontributory. - Related Data Home Medications Medication Instructions Recorded Confirmed Atorvastatin [Lipitor] 20 mg PO HS 10/17/18 03/11/25 Apixaban [Eliquis] 2.5 mg PO BID 06/05/20 03/11/25 Cetirizine HCl [Zyrtec] 10 mg PO DAILY PRN 06/10/23 03/11/25 Colchicine 0.6 mg PO BID 06/10/23 03/11/25 Metoprolol Succinate (ER) [Toprol 12.5 mg PO DAILY 06/10/23 03/11/25 XL] allopurinoL 100 mg PO DAILY 06/10/23 03/11/25 Acetaminophen [Tylenol Arthritis] 650 mg PO Q4H PRN 03/11/25 03/11/25 Clotrimazole Cream [Lotrimin Cream] 1 applic TOPICAL BID 03/11/25 03/11/25 Fluticasone Propion/Salmeterol 1 puff INHALATION RT-DAILY 03/11/25 03/11/25 [Wixela 500-50 Inhub] Ipratropium-Albuterol Nebulize 3 ml INHALATION RT-Q6H PRN 03/11/25 03/11/25 [Duoneb 0.5 mg-3 mg/3 ml Soln] Loperamide HCl [Imodium A-D] 2 mg PO Q2H PRN 03/11/25 03/11/25 Multivit-Min/FA/Lycopen/Lutein 1 tab PO HS 03/11/25 03/11/25 [Centrum Silver Tablet] Omeprazole 20 mg PO DAILY 03/11/25 03/11/25 Ondansetron [Zofran] 4 mg PO Q6H PRN 03/11/25 03/11/25 Vitamin B Complex 1 cap PO HS 03/11/25 03/11/25 buPROPion XL [Wellbutrin XL] 300 mg PO DAILY 03/11/25 03/11/25 Allergies Allergy/AdvReac Type Severity Reaction Status Date / Time codeine Allergy Unknown Verified 03/11/25 19:11 Penicillins Allergy Anaphylaxis Verified 03/11/25 19:11 Iodinated Contrast Media AdvReac Diarrhea, Verified 03/11/25 19:11 [Iodinated Contrast- Oral RASH and IV Dye] Review of Systems ROS Statement: Those systems with pertinent positive or pertinent negative responses have been documented in the HPI. ROS Other: All systems not noted in ROS Statement are negative. Past Medical History Past Medical History: Atrial Flutter, Coronary Artery Disease (CAD), Heart Failure, COPD, GERD/Reflux, Hearing Disorder / Deafness, Hyperlipidemia, Hypertension, Osteoarthritis (OA), Renal Disease, Vascular Disorder Additional Past Medical History / Comment(s): hx. gout, hx. colon polyps, circulation problems in legs, slight decreased kidney function, shingles History of Any Multi-Drug Resistant Organisms: MRSA Date of last positivie culture/infection: 02/14/22 MDRO Source:: Right Thigh Past Surgical History: Cholecystectomy, Heart Catheterization, Heart Catheterization With Stent Additional Past Surgical History / Comment(s): right bone graft to collar bone Past Anesthesia/Blood Transfusion Reactions: No Reported Reaction Date of Last Stent Placement:: 05/2020 Past Psychological History: No Psychological Hx Reported Smoking Status: Former smoker Past Alcohol Use History: None Reported Past Drug Use History: None Reported - Past Family History Mother Family Medical History: No Reported History General Exam - General Exam Comments Initial Comments: PHYSICAL EXAM: General Impression: Alert and oriented x3, not in acute distress HEENT: Normocephalic atraumatic, extra-ocular movements intact, pupils equal and reactive to light bilaterally, mucous membranes moist. Cardiovascular: Heart regular rate and rhythm Chest: Able to complete full sentences, no retractions, no tachypnea Abdomen: abdomen soft, non-tender, non-distended, no organomegaly Musculoskeletal: Pulses present and equal in all extremities, no peripheral edema Motor: no focal deficits noted Neurological: CN II-XII grossly intact, no focal motor or sensory deficits noted Skin: Intact with no visualized rashes Psych: Normal affect and mood Limitations: altered mental status Course Vital Signs 03/11/25 15:38 Temperature 97.6 F Pulse Rate 74 Respiratory 18 Rate Blood Pressure 111/74 O2 Sat by Pulse 99 Oximetry EKG Findings - EKG Comments: EKG Findings:: My EKG interpretation: Ventricular rate 86, ND interval 246, QRS 130, QTc 451. No ND prolongation, no QTC prolongation, no ST or T-wave changes noted. Overall, this EKG is unremarkable Medical Decision Making - Medical Decision Making Was pt. sent in by a medical professional or institution (, PA, BIN PILER, urgent care, hospital, or care home...) When possible be specific @ -No Did you speak to anyone other than the patient for history (EMS, parent, family, police, friend...)? What history was obtained from this source @ -History obtained from EMS. More history obtained from daughter at the bedside states that he has had a cough recently that was wet sounding Did you review nursing and triage notes (agree or disagree)? Why? @ -I reviewed and agree with nursing and triage notes Were old charts reviewed (outside hosp., previous admission, EMS record, old EKG, old radiological studies, urgent care reports/EKG's, care home records)? Report findings @ -No old charts were reviewed Differential Diagnosis (chest pain, altered mental status, abdominal pain women, abdominal pain men, vaginal bleeding, musculoskeletal, weakness, fever, dyspnea, syncope, headache, dizziness, GI bleed, back pain, seizure, CVA, palpatations, mental health)? @ -Differential Weakness: Hypoglycemia, shock, sepsis, hyponatremia, anemia, infection, NM, ETOH, adverse medicine reaction, overdose, stroke, this is not meant to be an all-inclusive list. EKG interpreted by me (3pts min.). @ -See above X-rays interpreted by me (1pt min.). @ -Chest x-ray shows left lower lobe infiltrate CT interpreted by me (1pt min.). @ -None done U/S interpreted by me (1pt. min.). @ -None done What testing was considered but not performed or refused? (CT, X-rays, U/S, labs)? Why? @ -None What meds were considered but not given or refused? Why? @ -None Was smoking cessation discussed for >3mins.? @ -No Were there social determinants of health that impacted care today? How? (Homelessness, low income, unemployed, alcoholism, drug addiction, transportation, low edu. Level, literacy, decrease access to med. care, group home, rehab)? @ -No Was there de-escalation of care discussed even if they declined (Discuss DNR or withdrawal of care, Hospice)? DNR status @ -No What co-morbidities impacted this encounter? (DM, HTN, Smoking, COPD, CAD, Cancer, CVA, ARF, Chemo, Hep., AIDS, mental health diagnosis, sleep apnea, morbid obesity)? @ -None Was patient admitted / discharged? Hospital course, mention meds given and route, prescriptions, significant lab abnormalities, going to OR and other pertinent info. @ -84-year-old debilitated male presents to the ER for worsening weakness and failure to thrive. Daughter reports that patient has a cough. Vital signs are stable. No hypertension. Nonhypoxic not in respiratory distress. Patient in no acute distress at the bedside. Laboratory evaluation within acceptable limits. Urinalysis unremarkable. Viral testing negative. Chest x-ray shows pneumonia. Patient given antibiotics will be admitted with consultation pulmonology. Case discussed with hospitalist for the admission Did you discuss the management of the patient with other professionals (professionals i.e. , PA, BIN PILER, lab, RT, psych nurse, group social worker, utility inspector, teacher, protective services officer, trimming caser)? Give summary @ -Case discussed with hospitalist Was critical care preformed (if so, how long)? @ -No Undiagnosed new problem with uncertain prognosis? @ -No Drug Therapy requiring intensive monitoring for toxicity (Heparin, Nitro, Insulin, Cardizem)? @ -No Were any procedures done? @ -No Diagnosis/symptom? Acute, or Chronic, or Acute on Chronic? Uncomplicated (without systemic symptoms) or Complicated (systemic symptoms)? @ -Pneumonia, failure to thrive Side effects of treatment? @ -No Exacerbation, Progression, or Severe Exacerbation? @ -No Poses a threat to life or bodily function? How? (Chest pain, USA, NM, pneumonia, PE, COPD, DKA, ARF, appy, cholecystitis, CVA, Diverticulitis, Homicidal, Suicidal, threat to staff... and all critical care pts) @ -yes - Lab Data Result diagrams: 03/11/25 16:34 03/11/25 16:34 Lab Results 03/11/25 03/11/25 03/11/25 Range/Units 16:34 16:34 16:34 WBC 14.28 H (4.50-10.00) 10*3/uL RBC 5.17 (4.40-5.60) 10*6/uL Hgb 15.8 (13.0-17.0) g/dL Hct 47.9 (39.6-50.0) % MCV 92.6 (80.0-97.0) fL MCH 30.6 (27.0-32.0) pg MCHC 33.0 (32.0-37.0) g/dL Plt Count 279 (140-440) 10*3/uL MPV 10.9 (9.5-12.2) fL Immature Gran % (Auto) 2.1 % Neutrophils % 78.3 % Lymphocytes % 10.9 % Monocytes % 6.4 % Eosinophils % 1.5 % Basophils % 0.8 % Immature Gran # 0.30 H (0.00-0.04) 10*3/uL Neutrophils # 11.18 H (1.80-7.70) 10*3/uL Lymphocytes # 1.55 (0.90-5.00) 10*3/uL Monocytes # 0.91 (0.20-1.00) 10*3/uL Eosinophils # 0.22 (0.04-0.35) 10*3/uL Basophils # 0.12 H (0.00-0.10) 10*3/uL PT 12.6 H (10.0-12.5) sec INR 1.2 H (<1.2) APTT 30.1 H (22.0-30.0) sec Sodium 136 L (137-145) mmol/L Potassium 4.0 (3.5-5.1) mmol/L Chloride 103 (98-107) mmol/L Carbon Dioxide 21 L (22-30) mmol/L Anion Gap 12 mmol/L BUN 18 (9-20) mg/dL Creatinine 1.01 (0.66-1.25) mg/dL Est GFR (CKD-EPI)AfAm 78 (>60 ml/min/1.73 sqM) Est GFR (CKD-EPI)NonAf 68 (>60 ml/min/1.73 sqM) Glucose 78 (74-99) mg/dL Plasma Lactic Acid Esau (0.7-2.0) mmol/L Calcium 10.4 H (8.4-10.2) mg/dL Magnesium 1.7 (1.6-2.3) mg/dL Total Bilirubin 0.7 (0.2-1.3) mg/dL AST 89 H (17-59) U/L ALT 123 H (4-49) U/L Alkaline Phosphatase 203 H (38-126) U/L Ammonia (<30) umol/L Troponin I (0.000-0.034) ng/mL Total Protein 6.2 L (6.3-8.2) g/dL Albumin 3.2 L (3.5-5.0) g/dL Influenza Type A (PCR) (Not Detectd) Influenza Type B (PCR) (Not Detectd) RSV (PCR) (Not Detectd) SARS-CoV-2 (PCR) (Not Detectd) 03/11/25 03/11/25 03/11/25 Range/Units 16:34 16:34 16:34 WBC (4.50-10.00) 10*3/uL RBC (4.40-5.60) 10*6/uL Hgb (13.0-17.0) g/dL Hct (39.6-50.0) % MCV (80.0-97.0) fL MCH (27.0-32.0) pg MCHC (32.0-37.0) g/dL Plt Count (140-440) 10*3/uL MPV (9.5-12.2) fL Immature Gran % (Auto) % Neutrophils % % Lymphocytes % % Monocytes % % Eosinophils % % Basophils % % Immature Gran # (0.00-0.04) 10*3/uL Neutrophils # (1.80-7.70) 10*3/uL Lymphocytes # (0.90-5.00) 10*3/uL Monocytes # (0.20-1.00) 10*3/uL Eosinophils # (0.04-0.35) 10*3/uL Basophils # (0.00-0.10) 10*3/uL PT (10.0-12.5) sec INR (<1.2) APTT (22.0-30.0) sec Sodium (137-145) mmol/L Potassium (3.5-5.1) mmol/L Chloride (98-107) mmol/L Carbon Dioxide (22-30) mmol/L Anion Gap mmol/L BUN (9-20) mg/dL Creatinine (0.66-1.25) mg/dL Est GFR (CKD-EPI)AfAm (>60 ml/min/1.73 sqM) Est GFR (CKD-EPI)NonAf (>60 ml/min/1.73 sqM) Glucose (74-99) mg/dL Plasma Lactic Acid Esau 1.9 (0.7-2.0) mmol/L Calcium (8.4-10.2) mg/dL Magnesium (1.6-2.3) mg/dL Total Bilirubin (0.2-1.3) mg/dL AST (17-59) U/L ALT (4-49) U/L Alkaline Phosphatase (38-126) U/L Ammonia <9 (<30) umol/L Troponin I <0.012 (0.000-0.034) ng/mL Total Protein (6.3-8.2) g/dL Albumin (3.5-5.0) g/dL Influenza Type A (PCR) Not Detected (Not Detectd) Influenza Type B (PCR) Not Detected (Not Detectd) RSV (PCR) Not Detected (Not Detectd) SARS-CoV-2 (PCR) Not Detected (Not Detectd) Disposition Clinical Impression: Pneumonia Disposition: ADMITTED IP TO THIS [facility] Condition: Fair Referrals: Joanne Bergman DO [Primary Care Provider] - 1-2 days Decision Time: 18:00
[2025-03-11 16:49] LABS: Basophils # (A) 0.12 10*3/uL (0.00-0.10); Basophils % (A) 0.8 %; Eosinophils # (A) 0.22 10*3/uL (0.04-0.35); Eosinophils % (A) 1.5 %; HCT 47.9 % (39.6-50.0); HGB 15.8 g/dL (13.0-17.0); Lymphocytes # (A) 1.55 10*3/uL (0.90-5.00); Lymphocytes % (A) 10.9 %; MCH 30.6 pg (27.0-32.0); MCV 92.6 fL (80.0-97.0); Mean Platelet Volume 10.9 fL (9.5-12.2); Monocytes # (A) 0.91 10*3/uL (0.20-1.00); Monocytes % (A) 6.4 %; Neutrophils # (A) 11.18 10*3/uL (1.80-7.70); Neutrophils % (A) 78.3 %; Platelet Count 279 10*3/uL (140-440); RBC 5.17 10*6/uL (4.40-5.60); RDW 15.9 % (11.5-14.5); WBC 14.28 10*3/uL (4.50-10.00)
[2025-03-11 17:09] LABS: Lactic Acid, Venous 1.9 mmol/L (0.7-2.0)
[2025-03-11 17:10] LABS: ALT 123 U/L (4-49); African American GFR (CKD) 78 (>60 ml/min/1.73 sqM); Albumin 3.2 g/dL (3.5-5.0); Anion Gap 12 mmol/L; Blood Urea Nitrogen 18 mg/dL (9-20); Calcium 10.4 mg/dL (8.4-10.2); Carbon Dioxide 21 mmol/L (22-30); Chloride 103 mmol/L (98-107); Glucose 78 mg/dL (74-99); Non-African American GFR(CKD) 68 (>60 ml/min/1.73 sqM); Sodium 136 mmol/L (137-145); Total Bilirubin 0.7 mg/dL (0.2-1.3); Total Protein 6.2 g/dL (6.3-8.2)
[2025-03-11 17:21] LABS: AST 89 U/L (17-59); Alkaline Phosphatase 203 U/L (38-126); Magnesium 1.7 mg/dL (1.6-2.3)
[2025-03-11 17:22] LABS: Influenza A Not Detected (Not Detectd); Influenza B Not Detected (Not Detectd); RSV Not Detected (Not Detectd)
[2025-03-11 17:35] LABS: INR 1.2 (<1.2); Partial Thromboplastin Time 30.1 sec (22.0-30.0); Prothrombin Time 12.6 sec (10.0-12.5)
--- NOTE | 2025-03-11 18:03 | XR ---
EXAMINATION TYPE: XR chest 2V DATE OF EXAM: 03/11/2025 5:54 PM COMPARISON: 06/10/2023 CLINICAL INDICATION: Male, 84 years old with history of weakness, TECHNIQUE: XR chest 2V view(s) obtained. FINDINGS: The heart size is mildly enlarged. The pulmonary vasculature is normal. Procedure via a retrocardiac infiltrate. Correlate for pneumonia. Follow-up can be performed.. IMPRESSION: 1. Left lower lobe infiltrate. Correlate for pneumonia. Follow-up recommended. [facility], Workstation: [email or web address], 03/11/2025 6:01 PM
--- NOTE | 2025-03-11 19:54 | CT ---
EXAMINATION TYPE: CT brain wo con DATE OF EXAM: 03/11/2025 7:38 PM COMPARISON: 06/10/2023 CLINICAL INDICATION: Male, 84 years old with history of weakness, Weakness. TECHNIQUE: CT of the brain is performed utilizing 3 mm thick sections through the posterior fossa and 3 mm thick sections through the remaining calvarium. Study is performed within 24 hours of arrival to the hospital. Contrast used: mL of , (none if empty) CT DLP: 1250.9 mGycm, Automated exposure control for dose reduction was used. FINDINGS: No abnormal hyperdensity is present to suggest an acute intracranial hemorrhage. No mass lesion is evident. No acute infarcts are evident. Confluent periventricular white matter hypodensity is present can be c ompatible with chronic white matter ischemic changes. Ventricles and sulci are prominent for the patient age. Paranasal sinuses and mastoid air cells within the [id number] are clear. IMPRESSION: 1. No acute intracranial process. Follow up MRI can be performed as clinically indicated. 2. Chronic appearing periventricular white matter ischemic changes with atrophy. [facility], Workstation: [facility], 03/11/2025 7:51 PM
[2025-03-11] MEDS ORDERED: PNEUMONIA PROTOCOL UTILIZED 1 EACH MISC PO PRN (20:18)
[2025-03-11 20:23] LABS: Appearance,Urine Clear (Clear); Bilirubin,Urine Negative (Negative); Blood,Urine Negative (Negative); Color,Urine Yellow; Glucose,Urine (UA) Negative (Negative); Ketones,Urine Negative (Negative); Leukocyte Esterase,Urine Negative (Negative); Mucus,Urine Rare /hpf; Nitrite,Urine Negative (Negative); PH, Urine 5.5 (5.0-8.0); Protein,Urine 1+ (Negative); RBC,Urine 1 /hpf (0-5); Specific Gravity,Urine 1.023 (1.001-1.035); Urobilinogen,Urine <2.0 mg/dL (<2.0); WBC,Urine <1 /hpf (0-5)
[2025-03-11] MEDS: LEVOFLOXACIN 750MG-D5W PMX 750 MG in DEXTROSE/WATER 1 150ML.BAG IVPB STA (20:56)
[2025-03-12] MEDS: ONDANSETRON 4 MG/2 ML VIAL IVP STA (01:51)
[2025-03-12] MEDS ORDERED: IPRATROPIUM-ALBUTEROL 3 ML NEB INHALATION PRN (06:51)
[2025-03-12] MEDS ORDERED: LORATADINE 10 MG TAB PO PRN (06:51)
[2025-03-12] MEDS ORDERED: ONDANSETRON 4 MG/2 ML VIAL IVP PRN (06:52)
[2025-03-12] MEDS ORDERED: ACETAMINOPHEN TAB 325 MG TAB PO PRN (06:52)
[2025-03-12 07:39] LABS: Basophils # (A) 0.07 10*3/uL (0.00-0.10); Basophils % (A) 0.7 %; Eosinophils # (A) 0.18 10*3/uL (0.04-0.35); Eosinophils % (A) 1.7 %; HCT 46.3 % (39.6-50.0); HGB 15.2 g/dL (13.0-17.0); Lymphocytes # (A) 1.48 10*3/uL (0.90-5.00); Lymphocytes % (A) 14.2 %; MCH 30.8 pg (27.0-32.0); MCHC 32.8 g/dL (32.0-37.0); MCV 93.9 fL (80.0-97.0); Mean Platelet Volume 11.2 fL (9.5-12.2); Monocytes % (A) 7.7 %; Neutrophils % (A) 74.8 %; Platelet Count 255 10*3/uL (140-440); RBC 4.93 10*6/uL (4.40-5.60); WBC 10.42 10*3/uL (4.50-10.00)
--- NOTE | 2025-03-12 08:07 | XR ---
EXAMINATION TYPE: XR chest 1V portable DATE OF EXAM: 03/12/2025 5:39 AM COMPARISON: Chest radiographs from 03/11/2025 TECHNIQUE: XR chest 1V portable Portable AP radiograph of the chest. CLINICAL INDICATION:Male, 84 years old with history of pneumonia; FINDINGS: Lungs/Pleura: No pleural effusion or pneumothorax. Retrocardiac opacity redemonstrated. Pulmonary vascularity: Unremarkable. Heart/mediastinum: Cardiomediastinal silhouette is enlarged and stable. Atherosclerotic calcificatio ns are seen in the aorta. Musculoskeletal: No acute osseous pathology. IMPRESSION: Retrocardiac opacity redemonstrated concerning for pneumonia. [facility], , 03/12/2025 8:05 AM
[2025-03-12] MEDS: PANTOPRAZOLE 40 MG TABLET PO SCH (08:14)
[2025-03-12] MEDS: SYMBICORT 160-4.5 MCG INHALER INHALATION SCH (08:34)
[2025-03-12] MEDS: APIXABAN 2.5 MG TABLET PO SCH (09:39)
[2025-03-12] MEDS: allopurinoL 100 MG TAB PO SCH (09:39)
[2025-03-12] MEDS: METOPROLOL SUCCINATE (ER) 25 MG TAB.ER.24H PO SCH (09:39)
[2025-03-12] MEDS: buPROPion XL 300 MG TAB.ER.24H PO SCH (09:40)
[2025-03-12] MEDS: COLCHICINE 0.6 MG EACH PO SCH (09:40)
[2025-03-12 10:24] LABS: ALT 126 U/L (4-49); AST 78 U/L (17-59); African American GFR (CKD) 69 (>60 ml/min/1.73 sqM); Albumin 2.9 g/dL (3.5-5.0); Alkaline Phosphatase 182 U/L (38-126); Anion Gap 7 mmol/L; Blood Urea Nitrogen 16 mg/dL (9-20); Calcium 10.2 mg/dL (8.4-10.2); Carbon Dioxide 25 mmol/L (22-30); Chloride 105 mmol/L (98-107); Globulin 2.9 g/dL; Glucose 73 mg/dL (74-99); Non-African American GFR(CKD) 60 (>60 ml/min/1.73 sqM); Potassium 3.6 mmol/L (3.5-5.1); Sodium 137 mmol/L (137-145); Total Bilirubin 0.7 mg/dL (0.2-1.3); Total Protein 5.8 g/dL (6.3-8.2)
--- NOTE | 2025-03-12 11:56 | P.CNPUL ---
History of Present Illness Consult date: 03/12/25 Requesting physician: Avtar Bradford Reason for consult: abnormal CXR/CT Chief complaint: Generalized weakness, failure to thrive History of present illness: This is a 84-year-old male patient who was a poor historian. He was brought in from [facility] with a 1 week history of increasing weakness debility and poor appetite. He has a history of coronary disease with previous stent placeme nt, former smoker, gout, hypertension, hyperlipidemia, hearing disorder, congestive heart failure, chronic obstructive pulmonary disease, atrial flutter anticoagulated with Eliquis. A chest x-ray revealed a left lower lobe infiltrate and there was some concern regarding possible pneumonia. CT scan of the head revealed no acute intracranial process. White count 10.4. Hemoglobin 15.2. Platelets 255. Sodium 137. Potassium 3.6. Bicarb 25. BUN 16. Creatinine 1.16. Glucose 73. AST 78. ALT 126. Urinalysis clean. Viral screen was negative for influenza A/B, RSV or COVID. Procalcitonin is also negative at 0.20. He is seen today in consultation in the emergency department. He is awake and alert. Maintaining O2 saturations in the mid 90s on 2 L/min per nasal cannula. He has been afebrile. Hemodynamically stable. Unable to obtain much information from the patient himself. Review of Systems ROS unobtainable: due to mental status Past Medical History Past Medical History: Atrial Flutter, Coronary Artery Disease (CAD), Heart Failure, COPD, GERD/Reflux, Hearing Disorder / Deafness, Hyperlipidemia, Hypertension, Osteoarthritis (OA), Renal Disease, Vascular Disorder Additional Past Medical History / Comment(s): hx. gout, hx. colon polyps, circulation problems in legs, slight decreased kidney function, shingles History of Any Multi-Drug Resistant Organisms: MRSA Date of last positivie culture/infection: 02/14/22 MDRO Source:: Right Thigh Past Surgical History: Cholecystectomy, Heart Catheterization, Heart Catheterization With Stent Additional Past Surgical History / Comment(s): right bone graft to collar bone Past Anesthesia/Blood Transfusion Reactions: No Reported Reaction Date of Last Stent Placement:: 05/2020 Past Psychological History: No Psychological Hx Reported Smoking Status: Former smoker Past Alcohol Use History: None Reported Past Drug Use History: None Reported - Past Family History Mother Family Medical History: No Reported History Medications and Allergies Home Medications Medication Instructions Recorded Confirmed Type Atorvastatin [Lipitor] 20 mg PO HS 10/17/18 03/11/25 History Apixaban [Eliquis] 2.5 mg PO BID 06/05/20 03/11/25 History Cetirizine HCl [Zyrtec] 10 mg PO DAILY PRN 06/10/23 03/11/25 History Colchicine 0.6 mg PO BID 06/10/23 03/11/25 History Metoprolol Succinate (ER) [Toprol 12.5 mg PO DAILY 06/10/23 03/11/25 History XL] allopurinoL 100 mg PO DAILY 06/10/23 03/11/25 History Acetaminophen [Tylenol Arthritis] 650 mg PO Q4H PRN 03/11/25 03/11/25 History Clotrimazole Cream [Lotrimin Cream] 1 applic TOPICAL BID 03/11/25 03/11/25 History Fluticasone Propion/Salmeterol 1 puff INHALATION RT-DAILY 03/11/25 03/11/25 History [Wixela 500-50 Inhub] Ipratropium-Albuterol Nebulize 3 ml INHALATION RT-Q6H PRN 03/11/25 03/11/25 History [Duoneb 0.5 mg-3 mg/3 ml Soln] Loperamide HCl [Imodium A-D] 2 mg PO Q2H PRN 03/11/25 03/11/25 History Multivit-Min/FA/Lycopen/Lutein 1 tab PO HS 03/11/25 03/11/25 History [Centrum Silver Tablet] Omeprazole 20 mg PO DAILY 03/11/25 03/11/25 History Ondansetron [Zofran] 4 mg PO Q6H PRN 03/11/25 03/11/25 History Vitamin B Complex 1 cap PO HS 03/11/25 03/11/25 History buPROPion XL [Wellbutrin XL] 300 mg PO DAILY 03/11/25 03/11/25 History Allergies Allergy/AdvReac Type Severity Reaction Status Date / Time codeine Allergy Unknown Verified 03/11/25 19:11 Penicillins Allergy Anaphylaxis Verified 03/11/25 19:11 Iodinated Contrast Media AdvReac Diarrhea, Verified 03/11/25 19:11 [Iodinated Contrast- Oral RASH and IV Dye] Physical Exam Vitals: Vital Signs Temp Pulse Resp BP Pulse Ox 03/12/25 09:38 83 17 121/85 95 03/12/25 08:09 97.9 F 85 16 121/75 95 03/12/25 06:02 97.7 F 70 18 116/77 95 03/12/25 02:30 95 03/12/25 02:10 87 21 117/75 89 L 03/12/25 01:20 89 91 L 03/12/25 00:43 97.7 F 71 20 134/76 91 L 03/11/25 21:05 98.1 F 83 17 134/81 93 L 03/11/25 15:38 97.6 F 74 18 111/74 99 Intake and Output 03/11/25 03/12/25 03/12/25 22:59 06:59 14:59 Other: Voiding Method Urinal Diaper Weight 66.134 kg GENERAL EXAM: Alert, poor historian, 84-year-old male, on 2 L nasal cannula, in no apparent distress. HEAD: Normocephalic. EYES: Normal reaction of pupils, equal size. NOSE: Clear with pink turbinates. THROAT: No erythema or exudates. NECK: No masses, no JVD. CHEST: No chest wall deformity. LUNGS: Equal air entry with few scattered rhonchi. CVS: S1 and S2 normal with no audible murmur, regular rhythm. ABDOMEN: No hepatosplenomegaly, normal bowel sounds, no guarding or rigidity. SPINE: No scoliosis or deformity SKIN: No rashes CENTRAL NERVOUS SYSTEM: No focal deficits, tone is normal in all 4 extremities. EXTREMITIES: There is no peripheral edema. No clubbing, no cyanosis. Peripheral pulses are intact. Results - Laboratory Findings CBC and BMP: 03/12/25 06:17 03/12/25 06:17 PT/INR, D-dimer PT 12.6 sec (10.0-12.5) H 03/11/25 16:34 INR 1.2 (<1.2) H 03/11/25 16:34 Abnormal lab findings: Abnormal Labs 03/11/25 03/11/25 03/11/25 16:34 16:34 16:34 WBC 14.28 H RDW Immature Gran # 0.30 H Neutrophils # 11.18 H Basophils # 0.12 H PT 12.6 H INR 1.2 H APTT 30.1 H Sodium 136 L Carbon Dioxide 21 L Glucose Calcium 10.4 H AST 89 H ALT 123 H Alkaline Phosphatase 203 H Total Protein 6.2 L Albumin 3.2 L Urine Protein Urine Mucus 03/11/25 03/12/25 03/12/25 19:50 06:17 06:17 WBC 10.42 H RDW 16.0 H Immature Gran # 0.09 H Neutrophils # 7.80 H Basophils # PT INR APTT Sodium Carbon Dioxide Glucose 73 L Calcium AST 78 H ALT 126 H Alkaline Phosphatase 182 H Total Protein 5.8 L Albumin 2.9 L Urine Protein 1+ H Urine Mucus Rare H - Diagnostic Findings Chest x-ray: image reviewed Assessment and Plan Assessment: Failure to thrive in a patient with increasing generalized weakness, poor appetite. Urinalysis clean, viral screen negative, procalcitonin negative Chronic obstructive pulmonary disease, currently inactive and stable History of previous chronic tobacco dependence Coronary artery disease with previous stent placement History of atrial flutter, anticoagulated with Eliquis History of congestive heart failure Hypertension Hyperlipidemia Hearing disorder History of gout prison resident Plan: The patient was seen and evaluated Imaging, labs and medications reviewed Currently stable on 2 L nasal cannula Procalcitonin negative Viral screen negative Titrate down/off the FiO2 as tolerated Anticoagulated with Eliquis Continue Symbicort Continue bronchodilators as needed No indication for antibiotics We will continue to follow and make further recommendations based on his clinical status I have personally seen and examined the patient, performed the documentation and the assessment and plan as written. Number of minutes spent on the visit: 20 Dictation was produced using [employer] dictation software. Please excuse any grammatical, word or spelling errors. Time with Patient: Greater than 30
[2025-03-12] MEDS ORDERED: LEVOFLOXACIN 750 MG TAB PO SCH (21:00)
[2025-03-12] MEDS: ATORVASTATIN 20 MG TAB PO SCH (22:08)
[2025-03-13 09:34] VITALS: BMI 18.7
--- NOTE | 2025-03-13 10:46 | P.PN ---
Subjective Progress Note Date: 03/13/25 This is an 84-year-old male patient who was a poor historian. He was brought in from [facility] with a 1 week history of increasing weakness debility and poor appetite. He has a history of coronary disease with previous stent placement, former smoker, gout, hypertension, hyperlipidemia, hearing disorder, congestive heart failure, chronic obstructive pulmonary disease, atrial flutter anticoagulated with Eliquis. A chest x-ray revealed a left lower lobe infiltrate and there was some concern regarding possible pneumonia. CT scan of the head revealed no acute intracranial process. White count 10.4. Hemoglobin 15.2. Platelets 255. Sodium 137. Potassium 3.6. Bicarb 25. BUN 16. Creatinine 1.16. Glucose 73. AST 78. ALT 126. Urinalysis clean. Viral screen was negative for influenza A/B, RSV or COVID. Procalcitonin is also negative at 0.20. He is seen today in consultation in the emergency department. He is awake and alert. Maintaining O2 saturations in the mid 90s on 2 L/min per nasal cannula. He has been afebrile. Hemodynamically stable. Unable to obtain much information from the patient himself. The patient is seen today March 13, 2025 in follow-up on the regular medical floor. He is currently resting comfortably in bed. Awake and alert in no acute distress. Maintaining O2 saturations in the 90s on 2 L/min per nasal cannula. No IV fluids. A bit more awake and alert today. He remains quite weak mostly in the lower extremities. Blood culture revealing no growth. Sputum culture revealing no growth. Acetone was negative at less than 0.20. He remains on Du oNeb inhalations, Symbicort. Anticoagulated with Eliquis. Objective - Vital Signs Vital signs: Vital Signs Temp 97.2 F L 03/13/25 07:36 Pulse 74 03/13/25 07:36 Resp 15 03/13/25 07:36 BP 112/77 03/13/25 07:36 Pulse Ox 96 03/13/25 08:09 FiO2 Intake & Output 03/12/25 03/13/25 03/13/25 18:59 06:59 18:59 Output Total 250 200 Balance -250 -200 Weight 66.134 kg 66.134 kg Output: Urine 250 200 - Exam GENERAL EXAM: Alert,, pleasant 84-year-old male, on 2 L nasal cannula, in no apparent distress. HEAD: Normocephalic. EYES: Normal reaction of pupils, equal size. NOSE: Clear with pink turbinates. THROAT: No erythema or exudates. NECK: No masses, no JVD. CHEST: No chest wall deformity. LUNGS: Equal air entry with few scattered rhonchi. CVS: S1 and S2 normal with no audible murmur, regular rhythm. ABDOMEN: No hepatosplenomegaly, normal bowel sounds, no guarding or rigidity. SPINE: No scoliosis or deformity SKIN: No rashes CENTRAL NERVOUS SYSTEM: No focal deficits, tone is normal in all 4 extremities. EXTREMITIES: There is no peripheral edema. No clubbing, no cyanosis. Peripheral pulses are intact. - Labs CBC & Chem 7: 03/12/25 06:17 03/12/25 06:17 Labs: Microbiology - Last 24 Hours (Table) 03/11/25 20:55 Blood Culture - Preliminary Blood 03/12/25 01:54 Gram Stain - Preliminary Sputum Assessment and Plan Assessment: Failure to thrive in a patient with increasing generalized weakness, poor appetite. Urinalysis clean, viral screen negative, procalcitonin negative Chronic obstructive pulmonary disease, currently inactive and stable History of previous chronic tobacco dependence Coronary artery disease with previous stent placement History of atrial flutter, anticoagulated with Eliquis History of congestive heart failure Hypertension Hyperlipidemia Hearing disorder History of gout alf resident Plan: The patient was seen and evaluated Medications reviewed Currently stable on 2 L nasal cannula Titrate down/off the FiO2 as tolerated Anticoagulated with Eliquis Continue Symbicort Continue bronchodilators as needed Plan is to return to [facility] at discharge I have personally seen and examined the patient, performed the documentation and the assessment and plan as written. Number of minutes spent on the visit: 10 Dictation was produced using [employer] dictation software. Please excuse any grammatical, word or spelling errors.
--- NOTE | 2025-03-13 13:33 | P.HPIM ---
History of Present Illness H&P Date: 03/13/25 Chief Complaint: Failure to thrive Patient is a 84-year-old male with a history of CAD, A-fib, COPD, GERD, hyperlipidemia, hypertension, presented to the ER from alf with complaints of generalized weakness, weight loss, and altered mental status with concerns for failure to thrive. The patient has been undergoing subacute rehab for last 3 weeks since he has been recovering from weakness after he was admitted to the hospital in [place] for diarrhea and gastritis. History was obtained by daughter over the phone who states that patient normally is alert and oriented to time , place and person however she has been getting notifications from subacute rehab to the patient from last couple weeks or so has been losing weight approximately 20 pounds and is not eating or drinking well. Family became concerned and decided to bring the patient for further evaluation to the ER. Laboratory evaluation shows WBC 14.28, hemoglobin 15.8, platelet count 279, sodium 136, potassium 4.0, BUN 18, creatinine 1.01, calcium 10.4, magnesium 1.7, AST 89, ALT 123, ALP 203, total protein 6.2, albumin 3.2. Urinalysis positive for mild proteinuria. Respiratory viral serology negative. EKG done in the ER shows normal sinus rhythm with ventricular rate of 56 bpm, first-degree AV block, AZ interval 246, QRS duration 138 ms, QTc [address] elevation noted. Chest x-ray shows retrocardiac opacity. Brain CT unremarkable for acute intracranial process. Initially there was concern for pneumonia based on chest x-ray and patient presentation therefore course of antibiotic was started. Pulmonology was consulted and repeat chest x-ray shows a retrocardiac opacity and repeat lab work shows downward trending white blood cell count and procalcitonin was negative. Therefore antibiotics were discontinued. Currently patient is feeling better. He is AAO x 1. Patient not complaining of any shortness of breath, chest pain, abdominal pain, nausea, vomiting, diarrhea constipation. Review of systems: Pertinent positives and negatives as discussed in HPI, a complete review of systems was performed and all other systems are negative. Physical examination: Vital signs reviewed General: non toxic, no distress, appears at stated age, underweight Derm: no unusual rashes/lesions, warm Head: atraumatic, normocephalic, symmetric Eyes: EOMI, no lid lag, anicteric sclera, pupils equal round reactive to light ENT: Nose and ears atraumatic Neck: No cervical lymphadenopathy, trachea midline, supple Mouth: no lip lesion, mucus membranes moist Cardiovascular: S1S2 reg, no murmur, positive dorsalis pedis pulse bilateral, no edema Lungs: CTA bilateral, no rhonchi, no rales, no accessory muscle use Abdominal: soft, nontender to palpation, no guarding Ext: muscle strength 5 out of 5 in all 4 extremities grossly, no gross muscle atrophy, no contractures, Neuro: CN II-XI grossly intact, no gross focal neuro deficits Psych: Alert, oriented, appropriate affect Assessment/Plan: This is a Patient is a 84-year-old male with a history of CAD, A-fib, COPD, GERD, hyperlipidemia, hypertension, presented to the ER from alf with complaints of generalized weakness, weight loss, and altered mental status with concerns for failure to thrive. . Case was discussed with the Emergency Room provider and decision was made to admit the patient for failure to thrive Labs and images: Laboratory evaluation shows WBC 14.28, hemoglobin 15.8, platelet count 279, sodium 136, potassium 4.0, BUN 18, creatinine 1.01, calcium 10.4, magnesium 1.7, AST 89, ALT 123, ALP 203, total protein 6.2, albumin 3.2. Urinalysis positive for mild proteinuria. Respiratory viral serology negative. EKG done in the ER shows normal sinus rhythm with ventricular rate of 56 bpm, first-degree AV block, AZ interval 246, QRS duration 138 ms, QTc [address] elevation noted. Chest x-ray shows retrocardiac opacity. Brain CT unremarkable for acute intracranial process. Active: #Failure to thrive #Generalized weakness #Moderate to severe protein caloric deficit Continue supportive measure Order physical therapy and Occupational Therapy Fall precautions Continue monitor vital signs #Acute metabolic encephalopathy #History of dementia #Leukocytosis, less likely due to infection WBC trending down Procalcitonin negative Antibiotics have been discontinued Continue monitor CBC Sputum culture and blood culture are pending #Transaminases AST, ALT, ALP trending down Continue monitor Chronic: #Dementia, COPD, CAD, A-fib, gout, depression, GERD Resume home medications DVT prophylaxis: Eliquis 2.5 mg p.o. twice daily GI prophylaxis: Protonix 40 mg p.o. F: None E: Replete as needed N: Heartedly diet A: Ambulatory with support, PT OT on board The patient is admitted with an anticipated more than than 2 midnight stay for evaluation of failure to thrive CODE STATUS: DNI Patient has advanced directive Anticipated discharge place: [facility] Dictation was produced using [employer] dictation software. Please excuse any g rammatical, word or spelling errors. Dr. Bellamy seen patient with resident, present during exam, and agreed with findings. Past Medical History Past Medical History: Atrial Flutter, Coronary Artery Disease (CAD), Heart Failure, COPD, GERD/Reflux, Hearing Disorder / Deafness, Hyperlipidemia, Hypertension, Osteoarthritis (OA), Renal Disease, Vascular Disorder Additional Past Medical History / Comment(s): hx. gout, hx. colon polyps, circulation problems in legs, slight decreased kidney function, shingles History of Any Multi-Drug Resistant Organisms: MRSA Date of last positivie culture/infection: 02/14/22 MDRO Source:: Right Thigh Past Surgical History: Cholecystectomy, Heart Catheterization, Heart Catheterization With Stent Additional Past Surgical History / Comment(s): right bone graft to collar bone Past Anesthesia/Blood Transfusion Reactions: No Reported Reaction Date of Last Stent Placement:: 05/2020 Past Psychological History: No Psychological Hx Reported Smoking Status: Former smoker Past Alcohol Use History: None Reported Additional Past Alcohol Use History / Comment(s): quit smoking 2014, smoked 1ppd- 2PPD STARTED SMOKING AT AGE 14 Past Drug Use History: None Reported - Past Family History Mother Family Medical History: No Reported History Medications and Allergies Home Medications Medication Instructions Recorded Confirmed Type Atorvastatin [Lipitor] 20 mg PO HS 10/17/18 03/11/25 History Apixaban [Eliquis] 2.5 mg PO BID 06/05/20 03/11/25 History Cetirizine HCl [Zyrtec] 10 mg PO DAILY PRN 06/10/23 03/11/25 History Colchicine 0.6 mg PO BID 06/10/23 03/11/25 History Metoprolol Succinate (ER) [Toprol 12.5 mg PO DAILY 06/10/23 03/11/25 History XL] allopurinoL 100 mg PO DAILY 06/10/23 03/11/25 History Acetaminophen [Tylenol Arthritis] 650 mg PO Q4H PRN 03/11/25 03/11/25 History Clotrimazole Cream [Lotrimin Cream] 1 applic TOPICAL BID 03/11/25 03/11/25 History Fluticasone Propion/Salmeterol 1 puff INHALATION RT-DAILY 03/11/25 03/11/25 History [Wixela 500-50 Inhub] Ipratropium-Albuterol Nebulize 3 ml INHALATION RT-Q6H PRN 03/11/25 03/11/25 History [Duoneb 0.5 mg-3 mg/3 ml Soln] Loperamide HCl [Imodium A-D] 2 mg PO Q2H PRN 03/11/25 03/11/25 History Multivit-Min/FA/Lycopen/Lutein 1 tab PO HS 03/11/25 03/11/25 History [Centrum Silver Tablet] Omeprazole 20 mg PO DAILY 03/11/25 03/11/25 History Ondansetron [Zofran] 4 mg PO Q6H PRN 03/11/25 03/11/25 History Vitamin B Complex 1 cap PO HS 03/11/25 03/11/25 History buPROPion XL [Wellbutrin XL] 300 mg PO DAILY 03/11/25 03/11/25 History Allergies Allergy/AdvReac Type Severity Reaction Status Date / Time codeine Allergy Unknown Verified 03/11/25 19:11 Penicillins Allergy Anaphylaxis Verified 03/11/25 19:11 Iodinated Contrast Media AdvReac Diarrhea, Verified 03/11/25 19:11 [Iodinated Contrast- Oral RASH and IV Dye] Physical Exam Vitals: Vital Signs Temp Pulse Pulse Resp BP BP Pulse Ox 03/13/25 08:09 96 03/13/25 07:36 97.2 F L 74 15 112/77 96 03/13/25 02:00 98.0 F 75 110/72 94 L 03/12/25 23:17 97.5 F L 84 126/81 90 L 03/12/25 21:40 98.2 F 84 18 116/79 93 L 03/12/25 20:00 98.1 F 78 18 111/80 94 L 03/12/25 14:00 98.3 F 84 21 113/79 95 03/12/25 11:59 84 15 125/78 97 03/12/25 09:38 83 17 121/85 95 Intake and Output 03/12/25 03/13/25 03/13/25 22:59 06:59 14:59 Output Total 250 200 Balance -250 -200 Output: Urine 250 200 Other: Weight 66.134 kg Results CBC & Chem 7: 03/12/25 06:17 03/12/25 06:17 Labs: Abnormal Lab Results - Last 24 Hours (Table) 03/12/25 Range/Units 06:17 Glucose 73 L (74-99) mg/dL AST 78 H (17-59) U/L ALT 126 H (4-49) U/L Alkaline Phosphatase 182 H (38-126) U/L Total Protein 5.8 L (6.3-8.2) g/dL Albumin 2.9 L (3.5-5.0) g/dL Microbiology - Last 24 Hours (Table) 03/11/25 20:55 Blood Culture - Preliminary Blood 03/12/25 01:54 Gram Stain - Preliminary Sputum Thrombosis Risk Factor Assmnt - Choose All That Apply Each Factor Represents 1 point: Abnormal pulmonary function (COPD), Serious lung disease incl. pneumonia (< 1month) Other Risk Factors: Yes Each Risk Factor Represents 3 Points: Age 75 years or older Other congenital or acquired thrombophilia - If yes, enter type in comment: No Thrombosis Risk Factor Assessment Total Risk Factor Score: 5 Thrombosis Risk Factor Assessment Level: High Risk
--- NOTE | 2025-03-13 14:48 | P.HPIM ---
History of Present Illness H&P Date: 03/12/25 Chief Complaint: Failure to thrive 84-year-old male, history of coronary artery disease with previous stent placement, gout, hypertension, hyperlipidemia, CAD/CHF, COPD, atrial fibrillation/flutter [facility], he will [facility] with 1 week history of increasing weakness, debility and poor appetite. Patient allegedly is full code. Patient is a poor historian. History present illness obtained from nurse received report from EMS. Allegedly over the last several weeks patient has been showing signs of failure to thrive including poor oral intake, 20 pound weight loss and significant debility with performs activities of daily living including standing up walking and caring for himself. Patient states he feels weak. Denies any fever chills or night sweats. No pain complaints. A chest x-ray revealed a left lower lobe infiltrate and there was some concern regarding possible pneumonia. CT scan of the head revealed no acute intracranial process. White count 10.4. Hemoglobin 15.2. Platelets 255. Sodium 137. Potassium 3.6. Bicarb 25. BUN 16. Creatinine 1.16. Glucose 73. AST 78. ALT 126. Urinalysis clean. Viral screen was negative for influenza A/B, RSV or COVID. Procalcitonin is also negative at 0.20. Review of Systems REVIEW OF SYSTEMS: CONSTITUTIONAL: No fever, no malaise, no fatigue. HEENT: No recent visual problems or hearing problems. Denied any sore throat. CARDIOVASCULAR: No chest pain, orthopnea, PND, no palpitations, no syncope. PULMONARY: No shortness of breath, no cough, no hemoptysis. GASTROINTESTINAL: No diarrhea, no nausea, no vomiting, no abdominal pain. NEUROLOGICAL: No headaches, no weakness, no numbness. HEMATOLOGICAL: Denies any bleeding or petechiae. GENITOURINARY: Denies any burning micturition, frequency, or urgency. MUSCULOSKELETAL/RHEUMATOLOGICAL: Denies any joint pain, swelling, or any muscle pain. ENDOCRINE: Denies any polyuria or polydipsia. The rest of the 14-point review of systems is negative. Past Medical History Past Medical History: Atrial Flutter, Coronary Artery Disease (CAD), Heart Failure, COPD, GERD/Reflux, Hearing Disorder / Deafness, Hyperlipidemia, Hypertension, Osteoarthritis (OA), Renal Disease, Vascular Disorder Additional Past Medical History / Comment(s): hx. gout, hx. colon polyps, circulation problems in legs, slight decreased kidney function, shingles History of Any Multi-Drug Resistant Organisms: MRSA Date of last positivie culture/infection: 02/14/22 MDRO Source:: Right Thigh Past Surgical History: Cholecystectomy, Heart Catheterization, Heart Catheterization With Stent Additional Past Surgical History / Comment(s): right bone graft to collar bone Past Anesthesia/Blood Transfusion Reactions: No Reported Reaction Date of Last Stent Placement:: 05/2020 Past Psychological History: No Psychological Hx Reported Smoking Status: Former smoker Past Alcohol Use History: None Reported Past Drug Use History: None Reported - Past Family History Mother Family Medical History: No Reported History Medications and Allergies Home Medications Medication Instructions Recorded Confirmed Type Atorvastatin [Lipitor] 20 mg PO HS 10/17/18 03/11/25 History Apixaban [Eliquis] 2.5 mg PO BID 06/05/20 03/11/25 History Cetirizine HCl [Zyrtec] 10 mg PO DAILY PRN 06/10/23 03/11/25 History Colchicine 0.6 mg PO BID 06/10/23 03/11/25 History Metoprolol Succinate (ER) [Toprol 12.5 mg PO DAILY 06/10/23 03/11/25 History XL] allopurinoL 100 mg PO DAILY 06/10/23 03/11/25 History Acetaminophen [Tylenol Arthritis] 650 mg PO Q4H PRN 03/11/25 03/11/25 History Clotrimazole Cream [Lotrimin Cream] 1 applic TOPICAL BID 03/11/25 03/11/25 History Fluticasone Propion/Salmeterol 1 puff INHALATION RT-DAILY 03/11/25 03/11/25 History [Wixela 500-50 Inhub] Ipratropium-Albuterol Nebulize 3 ml INHALATION RT-Q6H PRN 03/11/25 03/11/25 History [Duoneb 0.5 mg-3 mg/3 ml Soln] Loperamide HCl [Imodium A-D] 2 mg PO Q2H PRN 03/11/25 03/11/25 History Multivit-Min/FA/Lycopen/Lutein 1 tab PO HS 03/11/25 03/11/25 History [Centrum Silver Tablet] Omeprazole 20 mg PO DAILY 03/11/25 03/11/25 History Ondansetron [Zofran] 4 mg PO Q6H PRN 03/11/25 03/11/25 History Vitamin B Complex 1 cap PO HS 03/11/25 03/11/25 History buPROPion XL [Wellbutrin XL] 300 mg PO DAILY 03/11/25 03/11/25 History Allergies Allergy/AdvReac Type Severity Reaction Status Date / Time codeine Allergy Unknown Verified 03/11/25 19:11 Penicillins Allergy Anaphylaxis Verified 03/11/25 19:11 Iodinated Contrast Media AdvReac Diarrhea, Verified 03/11/25 19:11 [Iodinated Contrast- Oral RASH and IV Dye] Physical Exam Vitals: Vital Signs Temp Pulse Resp BP Pulse Ox 03/12/25 11:59 84 15 125/78 97 03/12/25 09:38 83 17 121/85 95 03/12/25 08:09 97.9 F 85 16 121/75 95 03/12/25 06:02 97.7 F 70 18 116/77 95 03/12/25 02:30 95 03/12/25 02:10 87 21 117/75 89 L 03/12/25 01:20 89 91 L 03/12/25 00:43 97.7 F 71 20 134/76 91 L 03/11/25 21:05 98.1 F 83 17 134/81 93 L 03/11/25 15:38 97.6 F 74 18 111/74 99 Intake and Output 03/11/25 03/12/25 03/12/25 22:59 06:59 14:59 Other: Voiding Method Urinal Diaper Weight 66.134 kg General Impression: Alert and oriented x3, not in acute distress HEENT: Normocephalic atraumatic, extra-ocular movements intact, pupils equal and reactive to light bilaterally, mucous membranes moist. Cardiovascular: Heart regular rate and rhythm Chest: Able to complete full sentences, no retractions, no tachypnea Abdomen: abdomen soft, non-tender, non-distended, no organomegaly Musculoskeletal: Pulses present and equal in all extremities, no peripheral edema Motor: no focal deficits noted Neurological: CN II-XII grossly intact, no focal motor or sensory deficits noted Skin: Intact with no visualized rashes Psych: Normal affect and mood Results CBC & Chem 7: 03/12/25 06:17 03/12/25 06:17 Labs: Abnormal Lab Results - Last 24 Hours (Table) 03/11/25 03/11/25 03/11/25 Range/Units 16:34 16:34 16:34 WBC 14.28 H (4.50-10.00) 10*3/uL RDW (11.5-14.5) % Immature Gran # 0.30 H (0.00-0.04) 10*3/uL Neutrophils # 11.18 H (1.80-7.70) 10*3/uL Basophils # 0.12 H (0.00-0.10) 10*3/uL PT 12.6 H (10.0-12.5) sec INR 1.2 H (<1.2) APTT 30.1 H (22.0-30.0) sec Sodium 136 L (137-145) mmol/L Carbon Dioxide 21 L (22-30) mmol/L Glucose (74-99) mg/dL Calcium 10.4 H (8.4-10.2) mg/dL AST 89 H (17-59) U/L ALT 123 H (4-49) U/L Alkaline Phosphatase 203 H (38-126) U/L Total Protein 6.2 L (6.3-8.2) g/dL Albumin 3.2 L (3.5-5.0) g/dL Urine Protein (Negative) Urine Mucus (None) /hpf 03/11/25 03/12/25 03/12/25 Range/Units 19:50 06:17 06:17 WBC 10.42 H (4.50-10.00) 10*3/uL RDW 16.0 H (11.5-14.5) % Immature Gran # 0.09 H (0.00-0.04) 10*3/uL Neutrophils # 7.80 H (1.80-7.70) 10*3/uL Basophils # (0.00-0.10) 10*3/uL PT (10.0-12.5) sec INR (<1.2) APTT (22.0-30.0) sec Sodium (137-145) mmol/L Carbon Dioxide (22-30) mmol/L Glucose 73 L (74-99) mg/dL Calcium (8.4-10.2) mg/dL AST 78 H (17-59) U/L ALT 126 H (4-49) U/L Alkaline Phosphatase 182 H (38-126) U/L Total Protein 5.8 L (6.3-8.2) g/dL Albumin 2.9 L (3.5-5.0) g/dL Urine Protein 1+ H (Negative) Urine Mucus Rare H (None) /hpf Assessment and Plan Assessment: 1. Left lower lobe pneumonia -Patient has 1 week history of poor oral intake and increasing weakness - Chest x-ray completed in ED reveals left lower lobe infiltrate - WBC at 10.4 - Patient has been placed on IV Rocephin and azithromycin - Will consult pulmonary 2. COPD; not in exacerbation; continue with home inhaler therapy with S ymbicort; continue bronchodilators as needed; patient remains on O2 at 2 L per nasal cannula 3. Hypertension; metoprolol 12.5 mg daily 4. Hyperlipidemia; Lipitor 20 mg p.o. nightly 5. History of atrial fibrillation/flutter; patient is currently anticoagulated with Eliquis 6. CAD/CHF; patient remains on Eliquis, Lipitor and metoprolol 7. History of gout; colchicine 0.6 mg daily DVT prophylaxis; SCDs/Eliquis CODE STATUS; full code
--- NOTE | 2025-03-13 14:50 | P.PN ---
Subjective Progress Note Date: 03/13/25 84-year-old male, history of coronary artery disease with previous stent placement, gout, hypertension, hyperlipidemia, CAD/CHF, COPD, atrial fibrillation/flutter presents from the skilled nursing, he will [employer] with 1 week history of increasing weakness, debility and poor appetite. Patient allegedly is full code. Patient is a poor historian. History present illness obtained from nurse received report from EMS. Allegedly over the last several weeks patient has been showing signs of failure to thrive including poor oral intake, 20 pound weight loss and significant debility with performs activities of daily living including standing up walking and caring for himself. Patient states he feels weak. Denies any fever chills or night sweats. No pain complaints. A chest x-ray revealed a left lower lobe infiltrate and there was some concern regarding possible pneumonia. CT scan of the head revealed no acute intracranial process. White count 10.4. Hemoglobin 15.2. Platelets 255. Sodium 137. Potassium 3.6. Bicarb 25. BUN 16. Creatinine 1.16. Glucose 73. AST 78. ALT 126. Urinalysis clean. Viral screen was negative for influenza A/B, RSV or COVID. Procalcitonin is also negative at 0.20. Objective - Vital Signs Vital signs: Vital Signs Temp 97.2 F L 03/13/25 07:36 Pulse 74 03/13/25 07:36 Resp 15 03/13/25 07:36 BP 112/77 03/13/25 07:36 Pulse Ox 96 03/13/25 08:09 FiO2 Intake & Output 03/12/25 03/13/25 03/13/25 18:59 06:59 18:59 Output Total 250 200 Balance -250 -200 Weight 66.134 kg 66.134 kg Output: Urine 250 200 - Exam General Impression: Alert and oriented x3, not in acute distress HEENT: Normocephalic atraumatic, extra-ocular movements intact, pupils equal and reactive to light bilaterally, mucous membranes moist. Cardiovascular: Heart regular rate and rhythm Chest: Able to complete full sentences, no retractions, no tachypnea Abdomen: abdomen soft, non-tender, non-distended, no organomegaly Musculoskeletal: Pulses present and equal in all extremities, no peripheral edema Motor: no focal deficits noted Neurological: CN II-XII grossly intact, no focal motor or sensory deficits noted Skin: Intact with no visualized rashes Psych: Normal affect and mood - Labs CBC & Chem 7: 03/12/25 06:17 03/12/25 06:17 Labs: Microbiology - Last 24 Hours (Table) 03/11/25 20:55 Blood Culture - Preliminary Blood 03/12/25 01:54 Gram Stain - Preliminary Sputum Assessment and Plan Assessment: 1. Left lower lobe pneumonia -Patient has 1 week history of poor oral intake and increasing weakness - Chest x-ray completed in ED reveals left lower lobe infiltrate - WBC at 10.4 - Patient has been placed on IV Rocephin and azithromycin - Will consult pulmonary 2. COPD; not in exacerbation; continue with home inhaler therapy with Symbicort; continue bronchodilators as needed; patient remains on O2 at 2 L per nasal cannula 3. Hypertension; metoprolol 12.5 mg daily 4. Hyperlipidemia; Lipitor 20 mg p.o. nightly 5. History of atrial fibrillation/flutter; patient is currently anticoagulated with Eliquis 6. CAD/CHF; patient remains on Eliquis, Lipitor and metoprolol 7. History of gout; colchicine 0.6 mg daily DVT prophylaxis; SCDs/Eliquis CODE STATUS; full code
[2025-03-13] MEDS: POTASSIUM CHLORIDE ER 20 MEQ TAB.ER PO STA (15:24)
[2025-03-13] MEDS: guaiFENesin SYRUP 100MG/5ML 200 MG/10 ML CUP PO PRN (22:24)
[2025-03-14] MEDS ORDERED: FLUCONAZOLE IN NACL,ISO-OSM 200 MG in SALINE 1 100ML.BAG IVPB SCH (09:30)
--- NOTE | 2025-03-14 09:38 | P.PN ---
Subjective Progress Note Date: 03/14/25 This is an 84-year-old male patient who was a poor historian. He was brought in from [facility] with a 1 week history of increasing weakness debility and poor appetite. He has a history of coronary disease with previous stent placement, former smoker, gout, hypertension, hyperlipidemia, hearing disorder, congestive heart failure, chronic obstructive pulmonary disease, atrial flutter anticoagulated with Eliquis. A chest x-ray revealed a left lower lobe infiltrate and there was some concern regarding possible pneumonia. CT scan of the head revealed no acute intracranial process. White count 10.4. Hemoglobin 15.2. Platelets 255. Sodium 137. Potassium 3.6. Bicarb 25. BUN 16. Creatinine 1.16. Glucose 73. AST 78. ALT 126. Urinalysis clean. Viral screen was negative for influenza A/B, RSV or COVID. Procalcitonin is also negative at 0.20. He is seen today in consultation in the emergency department. He is awake and alert. Maintaining O2 saturations in the mid 90s on 2 L/min per nasal cannula. He has been afebrile. Hemodynamically stable. Unable to obtain much information from the patient himself. The patient is seen today March 13, 2025 in follow-up on the regular medical floor. He is currently resting comfortably in bed. Awake and alert in no acute distress. Maintaining O2 saturations in the 90s on 2 L/min per nasal cannula. No IV fluids. A bit more awake and alert today. He remains quite weak mostly in the lower extremities. Blood culture revealing no growth. Sputum culture revealing no growth. Acetone was negative at less than 0.20. He remains on Du oNeb inhalations, Symbicort. Anticoagulated with Eliquis. The patient is seen today March 14, 2025 in follow-up on the regular medical floor. He is awake and alert in no acute distress. Denies any worsening shortness of breath, cough or congestion. He is maintaining O2 saturations in the 90s on 2 L/min per nasal cannula. No IV fluids. He is continued on DuoNeb and elations, Symbicort. Anticoagulated with Eliquis. Blood culture revealed no growth. Sputum culture positive for Tabitha. Objective - Vital Signs Vital signs: Vital Signs Temp 97.6 F 03/14/25 07:54 Pulse 78 03/14/25 07:54 Resp 16 03/14/25 07:54 BP 104/69 03/14/25 07:54 Pulse Ox 94 L 03/14/25 07:54 FiO2 Intake & Output 03/13/25 03/14/25 03/14/25 18:59 06:59 18:59 Weight 66.134 kg Other: Voiding Method Urinal Diaper # Voids 2 2 - Exam GENERAL EXAM: Alert, 84-year-old male, resting in bed, on 2 L nasal cannula, in no apparent distress. HEAD: Normocephalic. EYES: Normal reaction of pupils, equal size. NOSE: Clear with pink turbinates. THROAT: No erythema or exudates. NECK: No masses, no JVD. CHEST: No chest wall deformity. LUNGS: Equal air entry with few scattered rhonchi. CVS: S1 and S2 normal with no audible murmur, regular rhythm. ABDOMEN: No hepatosplenomegaly, normal bowel sounds, no guarding or rigidity. SPINE: No scoliosis or deformity SKIN: No rashes CENTRAL NERVOUS SYSTEM: No focal deficits, tone is normal in all 4 extremities. EXTREMITIES: There is no peripheral edema. No clubbing, no cyanosis. Peripheral pulses are intact. - Labs CBC & Chem 7: 03/12/25 06:17 03/12/25 06:17 Labs: Microbiology - Last 24 Hours (Table) 03/12/25 01:54 Gram Stain - Final Sputum Sputum Culture - Final Tabitha albicans 03/11/25 20:55 Blood Culture - Preliminary Blood Assessment and Plan Assessment: Failure to thrive in a patient with increasing generalized weakness, poor appetite. Urinalysis clean, viral screen negative, procalcitonin negative Chronic obstructive pulmonary disease, currently inactive and stable History of previous chronic tobacco dependence Coronary artery disease with previous stent placement History of atrial flutter, anticoagulated with Eliquis History of congestive heart failure Hypertension Hyperlipidemia Hearing disorder History of gout prison resident Plan: The patient was seen and evaluated Medications reviewed Anticoagulated with Eliquis Continue Symbicort Continue bronchodilators as needed Increase his activity as tolerated Titrate down the FiO2 as tolerated Plan is to return to [facility] at discharge I have personally seen and examined the patient, performed the documentation and the assessment and plan as written. Number of minutes spent on the visit: 10 Dictation was produced using [employer] dictation software. Please excuse any grammatical, word or spelling errors.
[2025-03-14] MEDS: COLCHICINE 0.6 MG EACH PO SCH (09:42)
[2025-03-14 10:01] LABS: Basophils # (A) 0.07 X 10*3/uL (0.00-0.10); Basophils % (A) 0.6 %; Eosinophils # (A) 0.25 X 10*3/uL (0.04-0.35); Eosinophils % (A) 2.2 %; HCT 47.6 % (39.6-50.0); Lymphocytes # (A) 1.62 X 10*3/uL (0.90-5.00); Lymphocytes % (A) 14.4 %; MCH 29.4 pg (27.0-32.0); MCHC 31.5 g/dL (32.0-37.0); MCV 93.2 FL (80.0-97.0); Mean Platelet Volume 11.6 FL (9.5-12.2); Monocytes # (A) 1.02 X 10*3/uL (0.20-1.00); Monocytes % (A) 9.1 %; NRBC Per 100 WBC 0 X 10*3/uL (0.00-0.01); Neutrophils # (A) 8.21 X 10*3/uL (1.80-7.70); Neutrophils % (A) 72.9 %; Platelet Count 252 X 10*3/uL (140-440); RBC 5.11 X 10*6/uL (4.40-5.60); RDW 16.1 % (11.5-14.5); WBC 11.26 X 10*3/uL (4.50-10.00)
--- NOTE | 2025-03-14 16:33 | P.PN ---
Subjective Progress Note Date: 03/14/25 84-year-old male, history of coronary artery disease with previous stent placement, gout, hypertension, hyperlipidemia, CAD/CHF, COPD, atrial fibrillation/flutter presents from the [facility], he will [employer] with 1 week history of increasing weakness, debility and poor appetite. Patient allegedly is full code. Patient is a poor historian. History present illness obtained from nurse received report from EMS. Allegedly over the last several weeks patient has been showing signs of failure to thrive including poor oral intake, 20 pound weight loss and significant debility with performs activities of daily living including standing up walking and caring for himself. Patient states he feels weak. Denies any fever chills or night sweats. No pain complaints. A chest x-ray revealed a left lower lobe infiltrate and there was some concern regarding possible pneumonia. CT scan of the head revealed no acute intracranial process. White count 10.4. Hemoglobin 15.2. Platelets 255. Sodium 137. Potassium 3.6. Bicarb 25. BUN 16. Creatinine 1.16. Glucose 73. AST 78. ALT 126. Urinalysis clean. Viral screen was negative for influenza A/B, RSV or COVID. Procalcitonin is also negative at 0.20. 03/14/2025 Patient is seen and evaluated in follow-up on the regular medical floor. He is awake and alert in no acute distress. Denies any worsening shortness of breath, cough or congestion. He is maintaining O2 saturations in the 90s on 2 L/min per nasal cannula. No IV fluids. - He is continued on DuoNeb and elations, Symbicort. Anticoagulated with Eliqu is. - Blood culture revealed no growth. Sputum culture positive for Tabitha. - Pulmonary service on board and recommending to continue with current treatment with Symbicort and bronchodilators; increase activity -Possible discharge to [facility] once cleared by pulmonary Objective - Vital Signs Vital signs: Vital Signs Temp 97.6 F 03/14/25 07:54 Pulse 78 03/14/25 07:54 Resp 16 03/14/25 07:54 BP 104/69 03/14/25 07:54 Pulse Ox 94 L 03/14/25 07:54 FiO2 Intake & Output 03/13/25 03/14/25 03/14/25 18:59 06:59 18:59 Weight 66.134 kg Other: Voiding Method Urinal Diaper # Voids 2 2 - Exam General Impression: Alert and oriented x3, not in acute distress HEENT: Normocephalic atraumatic, extra-ocular movements intact, pupils equal and reactive to light bilaterally, mucous membranes moist. Cardiovascular: Heart regular rate and rhythm Chest: Able to complete full sentences, no retractions, no tachypnea Abdomen: abdomen soft, non-tender, non-distended, no organomegaly Musculoskeletal: Pulses present and equal in all extremities, no peripheral edema Motor: no focal deficits noted Neurological: CN II-XII grossly intact, no focal motor or sensory deficits noted Skin: Intact with no visualized rashes Psych: Normal affect and mood - Labs CBC & Chem 7: 03/14/25 05:59 03/12/25 06:17 Labs: Microbiology - Last 24 Hours (Table) 03/11/25 20:55 Blood Culture - Preliminary Blood 03/12/25 01:54 Gram Stain - Preliminary Sputum Sputum Culture - Preliminary Tabitha albicans Assessment and Plan Assessment: 1. Left lower lobe pneumonia -Patient has 1 week history of poor oral intake and increasing weakness - Chest x-ray completed in ED reveals left lower lobe infiltrate - WBC at 10.4 - Patient has been placed on IV Rocephin and azithromycin - Will consult pulmonary 2. COPD; not in exacerbation; continue with home inhaler therapy with Symbicort; continue bronchodilators as needed; patient remains on O2 at 2 L per nasal cannula 3. Hypertension; metoprolol 12.5 mg daily 4. Hyperlipidemia; Lipitor 20 mg p.o. nightly 5. History of atrial fibrillation/flutter; patient is currently anticoagulated with Eliquis 6. CAD/CHF; patient remains on Eliquis, Lipitor and metoprolol 7. History of gout; colchicine 0.6 mg daily DVT prophylaxis; SCDs/Eliquis CODE STATUS; full code
--- NOTE | 2025-03-15 13:58 | P.PN ---
Subjective Progress Note Date: 03/15/25 This is an 84-year-old male patient who was a poor historian. He was brought in from [facility] with a 1 week history of increasing weakness debility and poor appetite. He has a history of coronary disease with previous stent placement, former smoker, gout, hypertension, hyperlipidemia, hearing disorder, congestive heart failure, chronic obstructive pulmonary disease, atrial flutter anticoagulated with Eliquis. A chest x-ray revealed a left lower lobe infiltrate and there was some concern regarding possible pneumonia. CT scan of the head revealed no acute intracranial process. White count 10.4. Hemoglobin 15.2. Platelets 255. Sodium 137. Potassium 3.6. Bicarb 25. BUN 16. Creatinine 1.16. Glucose 73. AST 78. ALT 126. Urinalysis clean. Viral screen was negative for influenza A/B, RSV or COVID. Procalcitonin is also negative at 0.20. He is seen today in consultation in the emergency department. He is awake and alert. Maintaining O2 saturations in the mid 90s on 2 L/min per nasal cannula. He has been afebrile. Hemodynamically stable. Unable to obtain much information from the patient himself. The patient is seen today March 13, 2025 in follow-up on the regular medical floor. He is currently resting comfortably in bed. Awake and alert in no acute distress. Maintaining O2 saturations in the 90s on 2 L/min per nasal cannula. No IV fluids. A bit more awake and alert today. He remains quite weak mostly in the lower extremities. Blood culture revealing no growth. Sputum culture revealing no growth. Acetone was negative at less than 0.20. He remains on D uoNeb inhalations, Symbicort. Anticoagulated with Eliquis. The patient is seen today March 14, 2025 in follow-up on the regular medical floor. He is awake and alert in no acute distress. Denies any worsening shortness of breath, cough or congestion. He is maintaining O2 saturations in the 90s on 2 L/min per nasal cannula. No IV fluids. He is continued on DuoNeb and elations, Symbicort. Anticoagulated with Eliquis. Blood culture revealed no growth. Sputum culture positive for Tabitha. On 03/15/2025, the patient is being seen for a follow-up. Resting comfortably in bed. No significant shortness of breath. No cough or sputum production. Remains on Symbicort. Remains on DuoNeb nebulizer treatments [id number]. Rest of the home medications have been resumed. Oral intake is quite diminished. The white cell count 11.2 with a hemoglobin of 15 and a platelet count of 252. Electrolytes at the time of admission were essentially within normal limits with a normal renal function. Mild dysplasia (in the LFTs. The viral screen was negative. Sputum sample was positive for Tabitha albicans. Chest x-ray done at time of admission showed retrocardiac opacity, likely secondary to atelectasis. The patient has no specific complaints. He is currently on 2 L of oxygen by nasal cannula with a pulse ox of 94%. The patient is afebrile. Objective - Vital Signs Vital signs: Vital Signs Temp 97.6 F 03/15/25 07:13 Pulse 77 03/15/25 07:13 Resp 18 03/15/25 07:13 BP 105/71 03/15/25 07:13 Pulse Ox 94 L 03/15/25 07:13 FiO2 Intake & Output 03/14/25 03/15/25 03/15/25 18:59 06:59 18:59 Other: Voiding Method Urinal Urinal Urinal Diaper Diaper # Voids 2 2 # Bowel Movements 1 - Exam GENERAL EXAM: Alert, 84-year-old male, resting in bed, on 2 L nasal cannula, in no apparent distress. HEAD: Normocephalic. EYES: Normal reaction of pupils, equal size. NOSE: Clear with pink turbinates. THROAT: No erythema or exudates. NECK: No masses, no JVD. CHEST: No chest wall deformity. LUNGS: Equal air entry with few scattered rhonchi. CVS: S1 and S2 normal with no audible murmur, regular rhythm. ABDOMEN: No hepatosplenomegaly, normal bowel sounds, no guarding or rigidity. SPINE: No scoliosis or deformity SKIN: No rashes CENTRAL NERVOUS SYSTEM: No focal deficits, tone is normal in all 4 extremities. EXTREMITIES: There is no peripheral edema. No clubbing, no cyanosis. Peripheral pulses are intact. - Labs CBC & Chem 7: 03/14/25 05:59 03/12/25 06:17 Labs: Microbiology - Last 24 Hours (Table) 05/08/25 20:55 Blood Culture - Preliminary Blood 03/12/25 01:54 Gram Stain - Final Sputum Sputum Culture - Final Tabitha albicans Assessment and Plan Plan: Failure to thrive in a patient with increasing generalized weakness, poor appetite. Urinalysis clean, viral screen negative, procalcitonin negative Chronic obstructive pulmonary disease, currently inactive and stable History of previous chronic tobacco dependence Coronary artery disease with previous stent placement History of atrial flutter, anticoagulated with Eliquis History of congestive heart failure Hypertension Hyperlipidemia Hearing disorder History of gout custodial resident Plan: Clinically stable Oxygenation stable and the patient remains on 2 L of oxygen by nasal cannula Chest x-ray shows some left lower lobe atelectatic changes Anticoagulated with Eliquis Continue Symbicort Continue bronchodilators as needed Increase his activity as tolerated Titrate down the FiO2 as tolerated Plan is to return to [facility] at discharge
--- NOTE | 2025-03-15 14:44 | CDI ---
Documentation Clarification Form Date: 03/15/2025 01:53:00 PM From: Viji Richardson RN, CCDS Phone: [phone] Admit Date: 03/11/2025 08:22:00 PM Patient Name: Balwinder Lucero Visit Number: [id number] Discharge Date: ATTENTION: The Clinical Documentation Specialists (CDI) and [facility] Coding Staff appreciate your assistance in clarifying documentation. Please respond to the clarification below the line at the bottom and electronically sign. The CDI & [facility] Coding staff will review the response and follow-up if needed. Please note: Queries are made part of the Legal Health Record. If you have any questions, please contact the author of this message via ITS. DoctorUri Mclaughlin Pneumonia is documented in your H/P and subsequent progress notes which may lack sufficient clinical evidence/support in the medical record. Additional clarification is requested. History/Risk Factors: Atrial Flutter, Coronary Artery Disease, Heart Failure, COPD, GERD/Reflux, Hyperlipidemia, Hypertension Clinical Indicators: 84-year-old male presents to the ER for failure to thrive, including poor oral intake, 20 pound weight loss and significant debility with performs activities of daily living. 03/11 CXR (2 V: Left lower lobe infiltrate. Correlate for pneumonia. 03/11 VS: 74 18 97.6 99% 03/11 Lab: WBC 14.2, Neutrophils 11.18, Na 136, AST 89, ALT 123, Alk Phos 203 03/12 Procalcitonin <0.20 03/12 CXR: (1V) Retrocardiac opacity redemonstrated concerning for pneumonia. 03/12 Pulmonary consult: 03/12 Pulm: His procalcitonin level was normal. Antibiotics can be discontinued. Chest x-ray showed a possible retrocardiac density. It probably relates more to atelectasis. Failure to thrive in a patient with increasing generalized weakness, poor .Urinalysis clean, viral screen negative, procalcitonin negative. Chronic obstructive pulmonary disease, currently inactive and stable Treatment: : Levaquin 750MG IV ONCE 03/11 Change to PO 03/12 -DC DuoNeb Inhalation -RT Q6 HRS PRN Symbicort Inhalers 2 Puff Inhalation BID Please clarify if pneumonia is a valid diagnosis? [ ] No, pneumonia is ruled out [ ] Yes, pneumonia is present as evidence by (additional clinical support): [ ] Other (please specify diagnosis) [ ] Unable to determine (Template Last Revised: April 2024) MTDD
--- NOTE | 2025-03-15 16:02 | P.PN ---
Subjective Progress Note Date: 03/15/25 Patient is a 84-year-old male with a history of CAD, A-fib, COPD, GERD, hyperlipidemia, hypertension, [facility] from [facility] with complaints of generalized weakness, weight loss, and altered mental status with concerns for failure to thrive. The patient has been undergoing subacute rehab for last 3 weeks since he has been recovering from weakness after he was admitted to the hospital in [place] for diarrhea and gastritis. History was obtained by daughter over the phone who states that patient normally is alert and oriented to time , place and person however she has been getting noti fications from subacute rehab to the patient from last couple weeks or so has been losing weight approximately 20 pounds and is not eating or drinking well. Family became concerned and decided to bring the patient for further evaluation to the ER. Laboratory evaluation shows WBC 14.28, hemoglobin 15.8, platelet count 279, sodium 136, potassium 4.0, BUN 18, creatinine 1.01, calcium 10.4, magnesium 1.7, AST 89, ALT 123, ALP 203, total protein 6.2, albumin 3.2. Urinalysis positive for mild proteinuria. Respiratory viral serology negative. EKG done in the ER shows normal sinus rhythm with ventricular rate of 56 bpm, first-degree AV block, DC interval 246, QRS duration 138 ms, QTc [address] elevation noted. Chest x-ray shows retrocardiac opacity. Brain CT unremarkable for acute intrac ranial process. Initially there was concern for pneumonia based on chest x-ray and patient presentation therefore course of antibiotic was started. Pulmonology was consulted and repeat chest x-ray shows a retrocardiac opacity and repeat lab work shows downward trending white blood cell count and procalcitonin was negative. Therefore antibiotics were discontinued. Currently patient is feeling better. He is AAO x 1. Patient not complaining of any shortness of breath, chest pain, abdominal pain, nausea, vomiting, diarrhea constipation. 03/15/2025: Patient seen and examined at the bedside. No acute events overnight. No lab work from today. Patient is waiting for placement at the [facility]. Review of systems: Pertinent positives and negatives as discussed in HPI, a complete review of systems was performed and all other systems are negative. Physical examination: Vital signs reviewed General: non toxic, no distress, appears at stated age, underweight Derm: no unusual rashes/lesions, warm Head: atraumatic, normocephalic, symmetric Eyes: EOMI, no lid lag, anicteric sclera, pupils equal round reactive to light ENT: Nose and ears atraumatic Neck: No cervical lymphadenopathy, trachea midline, supple Mouth: no lip lesion, mucus membranes moist Cardiovascular: S1S2 reg, no murmur, positive dorsalis pedis pulse bilateral, no edema Lungs: CTA bilateral, no rhonchi, no rales, no accessory muscle use Abdominal: soft, nontender to palpation, no guarding Ext: muscle strength 5 out of 5 in all 4 extremities grossly, no gross muscle atrophy, no contractures, Neuro: CN II-XI grossly intact, no gross focal neuro deficits Psych: Alert, oriented, appropriate affect Assessment/Plan: This is a Patient is a 84-year-old male with a history of CAD, A-fib, COPD, GERD, hyperlipidemia, hypertension, [facility] from [facility] with complaints of generalized weakness, weight loss, and altered mental status with concerns for failure to thrive. . Case was discussed with the Emergency Room provider and decision was made to admit the patient for failure to thrive Active: #Failure to thrive #Generalized weakness #Moderate to severe protein caloric deficit Continue supportive measure Order physical therapy and Occupational Therapy Fall precautions Continue monitor vital signs #Acute metabolic encephalopathy #History of dementia #Leukocytosis, less likely due to infection WBC trending down Procalcitonin negative Antibiotics have been discontinued Continue monitor CBC Sputum culture and blood culture are pending #Transaminases AST, ALT, ALP trending down Continue monitor Chronic: #Dementia, COPD, CAD, A-fib, gout, depression, GERD Resume home medications DVT prophylaxis: Eliquis 2.5 mg p.o. twice daily GI prophylaxis: Protonix 40 mg p.o. F: None E: Replete as needed N: Heartedly diet A: Ambulatory with support, PT OT on board CODE STATUS: DNI Patient has advanced directive Anticipated discharge place: [facility] Dictation was produced using [employer] dictation software. Please excuse any grammatical, word or spelling errors. Objective - Vital Signs Vital signs: Vital Signs Temp 98.6 F 03/15/25 14:00 Pulse 70 03/15/25 14:00 Resp 18 03/15/25 14:00 BP 99/69 03/15/25 14:00 Pulse Ox 92 L 03/15/25 14:00 FiO2 Intake & Output 03/14/25 03/15/25 03/15/25 18:59 06:59 18:59 Other: Voiding Method Urinal Urinal Urinal Diaper Diaper # Voids 2 2 # Bowel Movements 1 - Labs CBC & Chem 7: 03/16/25 03:23 03/18/25 04:35 Labs: Microbiology - Last 24 Hours (Table) 03/11/25 20:55 Blood Culture - Preliminary Blood Assessment and Plan Assessment: Attestation Attestation/ [employer] Note: Attestation to Progress Note, Participation (I saw and evaluated the patient with the Resident, and I reviewed and discussed the patient with the Resident and agree with the Resident's findings and plans as documented above., management reviewed and discussed), I agree with findings & plan, Provider Signature (DOT WILLIAM, CEM Zavala
[2025-03-16 08:18] LABS: Basophils # (A) 0.09 X 10*3/uL (0.00-0.10); Basophils % (A) 1.2 %; Eosinophils # (A) 0.33 X 10*3/uL (0.04-0.35); Eosinophils % (A) 4.3 %; HGB 14.7 g/dL (13.0-17.0); Lymphocytes # (A) 1.55 X 10*3/uL (0.90-5.00); Lymphocytes % (A) 20.2 %; MCH 29.5 pg (27.0-32.0); MCV 92.4 FL (80.0-97.0); Mean Platelet Volume 11.6 FL (9.5-12.2); Monocytes # (A) 0.92 X 10*3/uL (0.20-1.00); NRBC Per 100 WBC 0 X 10*3/uL (0.00-0.01); Neutrophils # (A) 4.72 X 10*3/uL (1.80-7.70); Neutrophils % (A) 61.6 %; Platelet Count 256 X 10*3/uL (140-440); RBC 4.98 X 10*6/uL (4.40-5.60); RDW 16.5 % (11.5-14.5); WBC 7.66 X 10*3/uL (4.50-10.00)
--- NOTE | 2025-03-16 11:04 | P.PN ---
Subjective Progress Note Date: 03/16/25 This is an 84-year-old male patient who was a poor historian. He was brought in from [facility] with a 1 week history of increasing weakness debility and poor appetite. He has a history of coronary disease with previous stent placement, former smoker, gout, hypertension, hyperlipidemia, hearing disorder, congestive heart failure, chronic obstructive pulmonary disease, atrial flutter anticoagulated with Eliquis. A chest x-ray revealed a left lower lobe infiltrate and there was some concern regarding possible pneumonia. CT scan of the head revealed no acute intracranial process. White count 10.4. Hemoglobin 15.2. Platelets 255. Sodium 137. Potassium 3.6. Bicarb 25. BUN 16. Creatinine 1.16. Glucose 73. AST 78. ALT 126. Urinalysis clean. Viral screen was negative for influenza A/B, RSV or COVID. Procalcitonin is also negative at 0.20. He is seen today in consultation in the emergency department. He is awake and alert. Maintaining O2 saturations in the mid 90s on 2 L/min per nasal cannula. He has been afebrile. Hemodynamically stable. Unable to obtain much information from the patient himself. The patient is seen today March 13, 2025 in follow-up on the regular medical floor. He is currently resting comfortably in bed. Awake and alert in no acute distress. Maintaining O2 saturations in the 90s on 2 L/min per nasal cannula. No IV fluids. A bit more awake and alert today. He remains quite weak mostly in the lower extremities. Blood culture revealing no growth. Sputum culture revealing no growth. Acetone was negative at less than 0.20. He remains on D uoNeb inhalations, Symbicort. Anticoagulated with Eliquis. The patient is seen today March 14, 2025 in follow-up on the regular medical floor. He is awake and alert in no acute distress. Denies any worsening shortness of breath, cough or congestion. He is maintaining O2 saturations in the 90s on 2 L/min per nasal cannula. No IV fluids. He is continued on DuoNeb and elations, Symbicort. Anticoagulated with Eliquis. Blood culture revealed no growth. Sputum culture positive for Tabitha. On 03/15/2025, the patient is being seen for a follow-up. Resting comfortably in bed. No significant shortness of breath. No cough or sputum production. Remains on Symbicort. Remains on DuoNeb nebulizer treatments [id number]. Rest of the home medications have been resumed. Oral intake is quite diminished. The white cell count 11.2 with a hemoglobin of 15 and a platelet count of 252. Electrolytes at the time of admission were essentially within normal limits with a normal renal function. Mild dysplasia (in the LFTs. The viral screen was negative. Sputum sample was positive for Tabihta albicans. Chest x-ray done at time of admission showed retrocardiac opacity, likely secondary to atelectasis. The patient has no specific complaints. He is currently on 2 L of oxygen by nasal cannula with a pulse ox of 94%. The patient is afebrile. On 03/16/2025, no new complaints, oral intake remains quite diminished and the patient is probably taken on 5 to 10% of the food offered to him. No significant respiratory distress. Remains on 2 L of oxygen by nasal cannula. Awake alert and communicating. White cell count at 7.6 with hemoglobin 14.7 elevated from 256. Objective - Vital Signs Vital signs: Vital Signs Temp 98.4 F 03/16/25 07:38 Pulse 75 03/16/25 07:38 Resp 14 03/16/25 07:38 BP 109/76 03/16/25 07:38 Pulse Ox 94 L 03/16/25 07:38 FiO2 Intake & Output 03/15/25 03/16/25 03/16/25 18:59 06:59 18:59 Intake Total 540 Output Total 350 Balance -350 540 Intake: Oral 540 Output: Urine 350 Other: Voiding Method Urinal Urinal Diaper Diaper # Voids 2 1 # Bowel Movements 1 - Exam GENERAL EXAM: Alert, 84-year-old male, resting in bed, on 2 L nasal cannula, in no apparent distress. HEAD: Normocephalic. EYES: Normal reaction of pupils, equal size. NOSE: Clear with pink turbinates. THROAT: No erythema or exudates. NECK: No masses, no JVD. CHEST: No chest wall deformity. LUNGS: Equal air entry with few scattered rhonchi. CVS: S1 and S2 normal with no audible murmur, regular rhythm. ABDOMEN: No hepatosplenomegaly, normal bowel sounds, no guarding or rigidity. SPINE: No scoliosis or deformity SKIN: No rashes CENTRAL NERVOUS SYSTEM: No focal deficits, tone is normal in all 4 extremities. EXTREMITIES: There is no peripheral edema. No clubbing, no cyanosis. Peripheral pulses are intact. - Labs CBC & Chem 7: 03/16/25 03:23 03/12/25 06:17 Labs: Abnormal Lab Results - Last 24 Hours (Table) 03/16/25 Range/Units 03:23 RDW 16.5 H (11.5-14.5) % Immature Gran # 0.05 H (0.00-0.04) X 10*3/uL Assessment and Plan Plan: Failure to thrive in a patient with increasing generalized weakness, poor appetite. Urinalysis clean, viral screen negative, procalcitonin negative Chronic obstructive pulmonary disease, currently inactive and stable History of previous chronic tobacco dependence Coronary artery disease with previous stent placement History of atrial flutter, anticoagulated with Eliquis History of congestive heart failure Hypertension Hyperlipidemia Hearing disorder History of gout [facility] resident Plan: Clinically stable Oxygenation stable and the patient remains on 2 L of oxygen by nasal cannula Chest x-ray shows some left lower lobe atelectatic changes Anticoagulated with Eliquis Continue Symbicort Continue bronchodilators as needed Increase his activity as tolerated Titrate down the FiO2 as tolerated Plan is to return to [facility] at discharge
--- NOTE | 2025-03-16 13:55 | P.PN ---
Subjective Progress Note Date: 03/16/25 Patient is a 84-year-old male with a history of CAD, A-fib, COPD, GERD, hyperlipidemia, hypertension, presented to the ER from detention with complaints of generalized weakness, weight loss, and altered mental status with concerns for failure to thrive. The patient has been undergoing subacute rehab for last 3 weeks since he has been recovering from weakness after he was admitted to the hospital in [place] for diarrhea and gastritis. History was obtained by daughter over the phone who states that patient normally is alert and oriented to time , place and person however she has been getting notif ications from subacute rehab to the patient from last couple weeks or so has been losing weight approximately 20 pounds and is not eating or drinking well. Family became concerned and decided to bring the patient for further evaluation to the ER. Laboratory evaluation shows WBC 14.28, hemoglobin 15.8, platelet count 279, sodium 136, potassium 4.0, BUN 18, creatinine 1.01, calcium 10.4, magnesium 1.7, AST 89, ALT 123, ALP 203, total protein 6.2, albumin 3.2. Urinalysis positive for mild proteinuria. Respiratory viral serology negative. EKG done in the ER shows normal sinus rhythm with ventricular rate of 56 bpm, first-degree AV block, HI interval 246, QRS duration 138 ms, QTc [address] elevation noted. Chest x-ray shows retrocardiac opacity. Brain CT unremarkable for acute intracr anial process. Initially there was concern for pneumonia based on chest x-ray and patient presentation therefore course of antibiotic was started. Pulmonology was consulted and repeat chest x-ray shows a retrocardiac opacity and repeat lab work shows downward trending white blood cell count and procalcitonin was negative. Therefore antibiotics were discontinued. Currently patient is feeling better. He is AAO x 1. Patient not complaining of any shortness of breath, chest pain, abdominal pain, nausea, vomiting, diarrhea constipation. 03/15/2025: Patient seen and examined at the bedside. No acute events overnight. No lab work from today. Patient is waiting for placement at the ECF. 03/16/2025: Patient seen and examined at the bedside. No acute events overnight. Patient continued to have poor oral intake. Patient is waiting for placement to ECF. Lab works unremarkable from today. Review of systems: Pertinent positives and negatives as discussed in HPI, a complete review of syst ems was performed and all other systems are negative. Physical examination: Vital signs reviewed General: non toxic, no distress, appears at stated age, underweight Derm: no unusual rashes/lesions, warm Head: atraumatic, normocephalic, symmetric Eyes: EOMI, no lid lag, anicteric sclera, pupils equal round reactive to light ENT: Nose and ears atraumatic Neck: No cervical lymphadenopathy, trachea midline, supple Mouth: no lip lesion, mucus membranes moist Cardiovascular: S1S2 reg, no murmur, positive dorsalis pedis pulse bilateral, no edema Lungs: CTA bilateral, no rhonchi, no rales, no accessory muscle use Abdominal: soft, nontender to palpation, no guarding Ext: muscle strength 5 out of 5 in all 4 extremities grossly, no gross muscle atrophy, no contractures, Neuro: CN II-XI grossly intact, no gross focal neuro deficits Psych: Alert, oriented, appropriate affect Assessment/Plan: This is a Patient is a 84-year-old male with a history of CAD, A-fib, COPD, GERD, hyperlipidemia, hypertension, presented to the ER from detention with complaints of generalized weakness, weight loss, and altered mental status with concerns for failure to thrive. . Case was discussed with the Emergency Room provider and decision was made to admit the patient for failure to thrive Active: #Failure to thrive #Generalized weakness #Moderate to severe protein caloric malnutrition Continue supportive measure Continue physical therapy and Occupational Therapy Fall precautions Continue monitor vital signs #Acute metabolic encephalopathy #History of dementia #Leukocytosis, less likely due to infection WBC trending down Procalcitonin negative Antibiotics have been discontinued Continue monitor CBC Sputum culture and blood culture are pending #Transaminases AST, ALT, ALP trending down Continue monitor Chronic: #Dementia, COPD, CAD, A-fib, gout, depression, GERD Resume home medications DVT prophylaxis: Eliquis 2.5 mg p.o. twice daily GI prophylaxis: Protonix 40 mg p.o. F: None E: Replete as needed N: Heartedly diet A: Ambulatory with support, PT OT on board CODE STATUS: DNI Patient has advanced directive Anticipated discharge place: [facility] Dictation was produced using [employer] dictation software. Please excuse any grammatical, word or spelling errors. Objective - Vital Signs Vital signs: Vital Signs Temp 98.4 F 03/16/25 07:38 Pulse 75 03/16/25 08:00 Resp 14 03/16/25 08:00 BP 109/76 03/16/25 07:38 Pulse Ox 94 L 03/16/25 07:38 FiO2 Intake & Output 03/15/25 03/16/25 03/16/25 18:59 06:59 18:59 Intake Total 540 Output Total 350 Balance -350 540 Intake: Oral 540 Output: Urine 350 Other: Voiding Method Urinal Urinal Urinal Diaper Diaper Diaper # Voids 2 1 # Bowel Movements 1 - Labs CBC & Chem 7: 03/16/25 03:23 03/18/25 04:35 Labs: Abnormal Lab Results - Last 24 Hours (Table) 03/16/25 Range/Units 03:23 RDW 16.5 H (11.5-14.5) % Immature Gran # 0.05 H (0.00-0.04) X 10*3/uL Assessment and Plan 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
--- NOTE | 2025-03-17 09:55 | P.PN ---
Subjective Progress Note Date: 03/17/25 Patient is a 84-year-old male with a history of CAD, A-fib, COPD, GERD, hyperlipidemia, hypertension, presented to the ER from [facility] with complaints of generalized weakness, weight loss, and altered mental status with concerns for failure to thrive. The patient has been undergoing subacute rehab for last 3 weeks since he has been recovering from weakness after he was admitted to the hospital in [place] for diarrhea and gastritis. History was obtained by daughter over the phone who states that patient normally is alert and oriented to time , place and person however she has been getting notif ications from subacute rehab to the patient from last couple weeks or so has been losing weight approximately 20 pounds and is not eating or drinking well. Family became concerned and decided to bring the patient for further evaluation to the ER. Laboratory evaluation shows WBC 14.28, hemoglobin 15.8, platelet count 279, sodium 136, potassium 4.0, BUN 18, creatinine 1.01, calcium 10.4, magnesium 1.7, AST 89, ALT 123, ALP 203, total protein 6.2, albumin 3.2. Urinalysis positive for mild proteinuria. Respiratory viral serology negative. EKG done in the ER shows normal sinus rhythm with ventricular rate of 56 bpm, first-degree AV block, LA interval 246, QRS duration 138 ms, QTc [address] elevation noted. Chest x-ray shows retrocardiac opacity. Brain CT unremarkable for acute intracr anial process. Initially there was concern for pneumonia based on chest x-ray and patient presentation therefore course of antibiotic was started. Pulmonology was consulted and repeat chest x-ray shows a retrocardiac opacity and repeat lab work shows downward trending white blood cell count and procalcitonin was negative. Therefore antibiotics were discontinued. Currently patient is feeling better. He is AAO x 1. Patient not complaining of any shortness of breath, chest pain, abdominal pain, nausea, vomiting, diarrhea constipation. 03/15/2025: Patient seen and examined at the bedside. No acute events overnight. No lab work from today. Patient is waiting for placement at the ECF. 03/16/2025: Patient seen and examined at the bedside. No acute events overnight. Patient continued to have poor oral intake. Patient is waiting for placement to ECF. Lab works unremarkable from today. 03/17/2025 Patient seen and examined at the bedside. No acute events overnight. Patient eating 50 to 75% of his meal. Patient is awaiting for placement in ECF. No new labs. Review of systems: Pertinent positives and negatives as discussed in HPI, a complete review of systems was performed and all other systems are negative. Physical examination: Vital signs reviewed General: non toxic, no distress, appears at stated age, underweight Derm: no unusual rashes/lesions, warm Head: atraumatic, normocephalic, symmetric Eyes: EOMI, no lid lag, anicteric sclera, pupils equal round reactive to light ENT: Nose and ears atraumatic Neck: No cervical lymphadenopathy, trachea midline, supple Mouth: no lip lesion, mucus membranes moist Cardiovascular: S1S2 reg, no murmur, positive dorsalis pedis pulse bilateral, no edema Lungs: CTA bilateral, no rhonchi, no rales, no accessory muscle use Abdominal: soft, nontender to palpation, no guarding Ext: muscle strength 5 out of 5 in all 4 extremities grossly, no gross muscle atrophy, no contractures, Neuro: CN II-XI grossly intact, no gross focal neuro deficits Psych: Alert, oriented, appropriate affect Assessment/Plan: This is a Patient is a 84-year-old male with a history of CAD, A-fib, COPD, GERD, hyperlipidemia, hypertension, presented to the ER from [facility] with complaints of generalized weakness, weight loss, and altered mental status with concerns for failure to thrive. . Case was discussed with the Emergency Room provider and decision was made to admit the patient for failure to thrive Active: #Failure to thrive #Generalized weakness #Moderate to severe protein caloric malnutrition Continue supportive measure Continue physical therapy and Occupational Therapy Fall precautions Continue monitor vital signs #Acute metabolic encephalopathy #History of dementia #Leukocytosis, less likely due to infection WBC trending down Procalcitonin negative Antibiotics have been discontinued Continue monitor CBC Sputum culture and blood culture are pending #Transaminases AST, ALT, ALP trending down Continue monitor Chronic: #Dementia, COPD, CAD, A-fib, gout, depression, GERD Resume home medications DVT prophylaxis: Eliquis 2.5 mg p.o. twice daily GI prophylaxis: Protonix 40 mg p.o. F: None E: Replete as needed N: Heartedly diet A: Ambulatory with support, PT OT on board CODE STATUS: DNI Patient has advanced directive Anticipated discharge place: [facility] Dictation was produced using [employer] dictation software. Please excuse any grammatical, word or spelling errors. 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
--- NOTE | 2025-03-17 16:05 | P.PN ---
Subjective Progress Note Date: 03/17/25 This is an 84-year-old male patient who was a poor historian. He was brought in from [facility] with a 1 week history of increasing weakness debility and poor appetite. He has a history of coronary disease with previous stent placement, former smoker, gout, hypertension, hyperlipidemia, hearing disorder, congestive heart failure, chronic obstructive pulmonary disease, atrial flutter anticoagulated with Eliquis. A chest x-ray revealed a left lower lobe infiltrate and there was some concern regarding possible pneumonia. CT scan of the head revealed no acute intracranial process. White count 10.4. Hemoglobin 15.2. Platelets 255. Sodium 137. Potassium 3.6. Bicarb 25. BUN 16. Creatinine 1.16. Glucose 73. AST 78. ALT 126. Urinalysis clean. Viral screen was negative for influenza A/B, RSV or COVID. Procalcitonin is also negative at 0.20. He is seen today in consultation in the emergency department. He is awake and alert. Maintaining O2 saturations in the mid 90s on 2 L/min per nasal cannula. He has been afebrile. Hemodynamically stable. Unable to obtain much information from the patient himself. The patient is seen today March 13, 2025 in follow-up on the regular medical floor. He is currently resting comfortably in bed. Awake and alert in no acute distress. Maintaining O2 saturations in the 90s on 2 L/min per nasal cannula. No IV fluids. A bit more awake and alert today. He remains quite weak mostly in the lower extremities. Blood culture revealing no growth. Sputum culture revealing no growth. Acetone was negative at less than 0.20. He remains on D uoNeb inhalations, Symbicort. Anticoagulated with Eliquis. The patient is seen today March 14, 2025 in follow-up on the regular medical floor. He is awake and alert in no acute distress. Denies any worsening shortness of breath, cough or congestion. He is maintaining O2 saturations in the 90s on 2 L/min per nasal cannula. No IV fluids. He is continued on DuoNeb and elations, Symbicort. Anticoagulated with Eliquis. Blood culture revealed no growth. Sputum culture positive for Tabitha. On 03/15/2025, the patient is being seen for a follow-up. Resting comfortably in bed. No significant shortness of breath. No cough or sputum production. Remains on Symbicort. Remains on DuoNeb nebulizer treatments [id number]. Rest of the home medications have been resumed. Oral intake is quite diminished. The white cell count 11.2 with a hemoglobin of 15 and a platelet count of 252. Electrolytes at the time of admission were essentially within normal limits with a normal renal function. Mild dysplasia (in the LFTs. The viral screen was negative. Sputum sample was positive for Tabitha albicans. Chest x-ray done at time of admission showed retrocardiac opacity, likely secondary to atelectasis. The patient has no specific complaints. He is currently on 2 L of oxygen by nasal cannula with a pulse ox of 94%. The patient is afebrile. On 03/16/2025, no new complaints, oral intake remains quite diminished and the patient is probably taken on 5 to 10% of the food offered to him. No significant respiratory distress. Remains on 2 L of oxygen by nasal cannula. Awake alert and communicating. White cell count at 7.6 with hemoglobin 14.7 elevated from 256. 40 on 03/17/2025, the patient is being seen for a follow-up. The patient remains essentially unchanged compared to yesterday. Resting comfortably in bed. He is awaiting ECF transfer. No labs are available from today. He remains on oxygen at 2 L with a pulse ox of 94%. No other significant events overnight. Objective - Vital Signs Vital signs: Vital Signs Temp 98.2 F 03/17/25 07:00 Pulse 80 03/17/25 07:00 Resp 17 03/17/25 07:00 BP 107/71 03/17/25 07:00 Pulse Ox 94 L 03/17/25 07:00 FiO2 Intake & Output 03/16/25 03/17/25 03/17/25 18:59 06:59 18:59 Intake Total 250 Output Total 350 50 Balance -350 200 Weight 66.134 kg Intake: Oral 250 Output: Urine 350 50 Other: Voiding Method Urinal Urinal Diaper Diaper # Voids 2 # Bowel Movements 1 - Exam GENERAL EXAM: Alert, 84-year-old male, resting in bed, on 2 L nasal cannula, in no apparent distress. HEAD: Normocephalic. EYES: Normal reaction of pupils, equal size. NOSE: Clear with pink turbinates. THROAT: No erythema or exudates. NECK: No masses, no JVD. CHEST: No chest wall deformity. LUNGS: Equal air entry with few scattered rhonchi. CVS: S1 and S2 normal with no audible murmur, regular rhythm. ABDOMEN: No hepatosplenomegaly, normal bowel sounds, no guarding or rigidity. SPINE: No scoliosis or deformity SKIN: No rashes CENTRAL NERVOUS SYSTEM: No focal deficits, tone is normal in all 4 extremities. EXTREMITIES: There is no peripheral edema. No clubbing, no cyanosis. Peripheral pulses are intact. - Labs CBC & Chem 7: 03/16/25 03:23 03/12/25 06:17 Labs: Microbiology - Last 24 Hours (Table) 03/11/25 20:55 Blood Culture - Final Blood Assessment and Plan Plan: Failure to thrive in a patient with increasing generalized weakness, poor appetite. Urinalysis clean, viral screen negative, procalcitonin negative Chronic obstructive pulmonary disease, currently inactive and stable History of previous chronic tobacco dependence Coronary artery disease with previous stent placement History of atrial flutter, anticoagulated with Eliquis History of congestive heart failure Hypertension Hyperlipidemia Hearing disorder History of gout senior care resident Plan: Clinically stable, no new complaints. Some improvement in his oral intake over the past 24 hours. Apparently he is eating up to 40 to 50% of his food. Oxygenation stable and the patient remains on 2 L of oxygen by nasal cannula Chest x-ray shows some left lower lobe atelectatic changes Anticoagulated with Eliquis Continue Symbicort Continue bronchodilators as needed Increase his activity as tolerated Titrate down the FiO2 as tolerated Plan is to return to ECF at discharge
[2025-03-18 08:17] LABS: BUN/Creat Ratio 22.12 Ratio (12.00-20.00); Blood Urea Nitrogen 17.7 mg/dL (9.0-27.0); Calcium 9.5 mg/dL (8.7-10.3); Carbon Dioxide 23.1 mmol/L (21.6-31.8); Chloride 104 mmol/L (96-109); Glucose 75 mg/dL (70-110); Potassium 4.2 mmol/L (3.5-5.5); Sodium 138 mmol/L (135-145)
--- NOTE | 2025-03-18 15:36 | P.PN ---
Subjective Progress Note Date: 03/18/25 This is an 84-year-old male patient who was a poor historian. He was brought in from [facility] with a 1 week history of increasing weakness debility and poor appetite. He has a history of coronary disease with previous stent placement, former smoker, gout, hypertension, hyperlipidemia, hearing disorder, congestive heart failure, chronic obstructive pulmonary disease, atrial flutter anticoagulated with Eliquis. A chest x-ray revealed a left lower lobe infiltrate and there was some concern regarding possible pneumonia. CT scan of the head revealed no acute intracranial process. White count 10.4. Hemoglobin 15.2. Platelets 255. Sodium 137. Potassium 3.6. Bicarb 25. BUN 16. Creatinine 1.16. Glucose 73. AST 78. ALT 126. Urinalysis clean. Viral screen was negative for influenza A/B, RSV or COVID. Procalcitonin is also negative at 0.20. He is seen today in consultation in the emergency department. He is awake and alert. Maintaining O2 saturations in the mid 90s on 2 L/min per nasal cannula. He has been afebrile. Hemodynamically stable. Unable to obtain much information from the patient himself. The patient is seen today March 13, 2025 in follow-up on the regular medical floor. He is currently resting comfortably in bed. Awake and alert in no acute distress. Maintaining O2 saturations in the 90s on 2 L/min per nasal cannula. No IV fluids. A bit more awake and alert today. He remains quite weak mostly in the lower extremities. Blood culture revealing no growth. Sputum culture revealing no growth. Acetone was negative at less than 0.20. He remains on D uoNeb inhalations, Symbicort. Anticoagulated with Eliquis. The patient is seen today March 14, 2025 in follow-up on the regular medical floor. He is awake and alert in no acute distress. Denies any worsening shortness of breath, cough or congestion. He is maintaining O2 saturations in the 90s on 2 L/min per nasal cannula. No IV fluids. He is continued on DuoNeb and elations, Symbicort. Anticoagulated with Eliquis. Blood culture revealed no growth. Sputum culture positive for Tabitha. On 03/15/2025, the patient is being seen for a follow-up. Resting comfortably in bed. No significant shortness of breath. No cough or sputum production. Remains on Symbicort. Remains on DuoNeb nebulizer treatments [id number]. Rest of the home medications have been resumed. Oral intake is quite diminished. The white cell count 11.2 with a hemoglobin of 15 and a platelet count of 252. Electrolytes at the time of admission were essentially within normal limits with a normal renal function. Mild dysplasia (in the LFTs. The viral screen was negative. Sputum sample was positive for Tabitha albicans. Chest x-ray done at time of admission showed retrocardiac opacity, likely secondary to atelectasis. The patient has no specific complaints. He is currently on 2 L of oxygen by nasal cannula with a pulse ox of 94%. The patient is afebrile. On 03/16/2025, no new complaints, oral intake remains quite diminished and the patient is probably taken on 5 to 10% of the food offered to him. No significant respiratory distress. Remains on 2 L of oxygen by nasal cannula. Awake alert and communicating. White cell count at 7.6 with hemoglobin 14.7 elevated from 256. on 03/17/2025, the patient is being seen for a follow-up. The patient remains essentially unchanged compared to yesterday. Resting comfortably in bed. He is awaiting ECF transfer. No labs are available from today. He remains on oxygen at 2 L with a pulse ox of 94%. No other significant events overnight. On 03/18/2025, no new issues. Remains on 2 L of oxygen by nasal cannula with a pulse ox of 95%. Electrolytes were all within normal limits. BUN 17 with a creatinine of 0.5. Medications remain unchanged. No significant respiratory distress. Remains on anticoagulation with Eliquis. Remains on DuoNeb treatments [id number]. Objective - Vital Signs Vital signs: Vital Signs Temp 97.9 F 03/18/25 14:10 Pulse 71 03/18/25 14:10 Resp 16 03/18/25 14:10 BP 113/73 03/18/25 14:10 Pulse Ox 95 03/18/25 14:10 FiO2 Intake & Output 03/17/25 03/18/25 03/18/25 18:59 06:59 18:59 Output Total 400 400 Balance -400 -400 Output: Urine 400 400 Other: Voiding Method Urinal Diaper # Voids 1 1 - Exam GENERAL EXAM: Alert, 84-year-old male, resting in bed, on 2 L nasal cannula, in no apparent distress. HEAD: Normocephalic. EYES: Normal reaction of pupils, equal size. NOSE: Clear with pink turbinates. THROAT: No erythema or exudates. NECK: No masses, no JVD. CHEST: No chest wall deformity. LUNGS: Equal air entry with few scattered rhonchi. CVS: S1 and S2 normal with no audible murmur, regular rhythm. ABDOMEN: No hepatosplenomegaly, normal bowel sounds, no guarding or rigidity. SPINE: No scoliosis or deformity SKIN: No rashes CENTRAL NERVOUS SYSTEM: No focal deficits, tone is normal in all 4 extremities. EXTREMITIES: There is no peripheral edema. No clubbing, no cyanosis. Peripheral pulses are intact. - Labs CBC & Chem 7: 03/16/25 03:23 03/18/25 04:35 Labs: Abnormal Lab Results - Last 24 Hours (Table) 03/18/25 Range/Units 04:35 BUN/Creatinine Ratio 22.12 H (12.00-20.00) Ratio Assessment and Plan Plan: Failure to thrive in a patient with increasing generalized weakness, poor appetite. Urinalysis clean, viral screen negative, procalcitonin negative Chronic obstructive pulmonary disease, currently inactive and stable History of previous chronic tobacco dependence Coronary artery disease with previous stent placement History of atrial flutter, anticoagulated with Eliquis History of congestive heart failure Hypertension Hyperlipidemia Hearing disorder History of gout long term resident Plan: Clinically stable, no new complaints. Some improvement in his oral intake over the past 24 hours. Oxygenation stable and the patient remains on 2 L of oxygen by nasal cannula Chest x-ray shows some left lower lobe atelectatic changes Anticoagulated with Eliquis Continue Symbicort Continue bronchodilators as needed Increase his activity as tolerated Titrate down the FiO2 as tolerated Plan is to return to ECF at discharge
--- NOTE | 2025-03-18 17:34 | P.PN ---
Subjective Progress Note Date: 03/18/25 Patient is a 84-year-old male with a history of CAD, A-fib, COPD, GERD, hyperlipidemia, hypertension, presented to the ER from retirement with complaints of generalized weakness, weight loss, and altered mental status with concerns for failure to thrive. The patient has been undergoing subacute rehab for last 3 weeks since he has been recovering from weakness after he was admitted to the hospital in [place] for diarrhea and gastritis. History was obtained by daughter over the phone who states that patient normally is alert and oriented to time , place and person however she has been getting notif ications from subacute rehab to the patient from last couple weeks or so has been losing weight approximately 20 pounds and is not eating or drinking well. Family became concerned and decided to bring the patient for further evaluation to the ER. Laboratory evaluation shows WBC 14.28, hemoglobin 15.8, platelet count 279, sodium 136, potassium 4.0, BUN 18, creatinine 1.01, calcium 10.4, magnesium 1.7, AST 89, ALT 123, ALP 203, total protein 6.2, albumin 3.2. Urinalysis positive for mild proteinuria. Respiratory viral serology negative. EKG done in the ER shows normal sinus rhythm with ventricular rate of 56 bpm, first-degree AV block, GA interval 246, QRS duration 138 ms, QTc [address] elevation noted. Chest x-ray shows retrocardiac opacity. Brain CT unremarkable for acute intracr anial process. Initially there was concern for pneumonia based on chest x-ray and patient presentation therefore course of antibiotic was started. Pulmonology was consulted and repeat chest x-ray shows a retrocardiac opacity and repeat lab work shows downward trending white blood cell count and procalcitonin was negative. Therefore antibiotics were discontinued. Currently patient is feeling better. He is AAO x 1. Patient not complaining of any shortness of breath, chest pain, abdominal pain, nausea, vomiting, diarrhea constipation. 03/15/2025: Patient seen and examined at the bedside. No acute events overnight. No lab work from today. Patient is waiting for placement at the ECF. 03/16/2025: Patient seen and examined at the bedside. No acute events overnight. Patient continued to have poor oral intake. Patient is waiting for placement to ECF. Lab works unremarkable from today. 03/17/2025 Patient seen and examined at the bedside. No acute events overnight. Patient eating 50 to 75% of his meal. Patient is awaiting for placement in ECF. No new labs. 03/18/2025 Patient seen and examined at bedside. No acute events overnight. Sodium 132, potassium 4.2, BUN 17.7, creatinine 0.8. Possible discharge tomorrow Review of systems: Pertinent positives and negatives as discussed in HPI, a complete review of systems was performed and all other systems are negative. Physical examination: Vital signs reviewed General: non toxic, no distress, appears at stated age, underweight Derm: no unusual rashes/lesions, warm Head: atraumatic, normocephalic, symmetric Eyes: EOMI, no lid lag, anicteric sclera, pupils equal round reactive to light ENT: Nose and ears atraumatic Neck: No cervical lymphadenopathy, trachea midline, supple Mouth: no lip lesion, mucus membranes moist Cardiovascular: S1S2 reg, no murmur, positive dorsalis pedis pulse bilateral, no edema Lungs: CTA bilateral, no rhonchi, no rales, no accessory muscle use Abdominal: soft, nontender to palpation, no guarding Ext: muscle strength 5 out of 5 in all 4 extremities grossly, no gross muscle atrophy, no contractures, Neuro: CN II-XI grossly intact, no gross focal neuro deficits Psych: Alert, oriented, appropriate affect Assessment/Plan: This is a Patient is a 84-year-old male with a history of CAD, A-fib, COPD, GERD, hyperlipidemia, hypertension, presented to the ER from retirement with complaints of generalized weakness, weight loss, and altered mental status with concerns for failure to thrive. . Case was discussed with the Emergency Room provider and decision was made to admit the patient for failure to thrive Active: #Failure to thrive #Generalized weakness #Moderate to severe protein caloric malnutrition Continue supportive measure Continue physical therapy and Occupational Therapy Fall precautions Continue monitor vital signs Order Remeron 15 mg at bedtime #Acute metabolic encephalopathy #History of dementia #Leukocytosis, less likely due to infection WBC trending down Procalcitonin negative Antibiotics have been discontinued Continue monitor CBC Sputum culture and blood culture are pending #Transaminases AST, ALT, ALP trending down Continue monitor Chronic: #Dementia, COPD, CAD, A-fib, gout, depression, GERD Resume home medications DVT prophylaxis: Eliquis 2.5 mg p.o. twice daily GI prophylaxis: Protonix 40 mg p.o. F: None E: Replete as needed N: Heartedly diet A: Ambulatory with support, PT OT on board CODE STATUS: DNI Patient has advanced directive Anticipated discharge place: SARAH Dictation was produced using [employer] dictation software. Please excuse any grammatical, word or spelling errors. Objective - Vital Signs Vital signs: Vital Signs Temp 97.9 F 03/18/25 14:10 Pulse 71 03/18/25 14:10 Resp 16 03/18/25 14:10 BP 113/73 03/18/25 14:10 Pulse Ox 95 03/18/25 14:10 FiO2 Intake & Output 03/17/25 03/18/25 03/18/25 18:59 06:59 18:59 Output Total 400 400 Balance -400 -400 Output: Urine 400 400 Other: Voiding Method Urinal Diaper # Voids 1 1 - Labs CBC & Chem 7: 03/16/25 03:23 03/18/25 04:35 Labs: Abnormal Lab Results - Last 24 Hours (Table) 03/18/25 Range/Units 04:35 BUN/Creatinine Ratio 22.12 H (12.00-20.00) Ratio Assessment and Plan Assessment: Attestation Attestation/ Microscopist Note: Attestation to Progress Note, Participation (I saw and evaluated the patient with the Resident, and I reviewed and discussed the patient with the Resident and agree with the Resident's findings and plans as documented above., management reviewed and discussed), I agree with findings & plan, Provider Signature (DOT WILLIAM, CEM Zavala
[2025-03-18] MEDS: MIRTAZAPINE 15 MG TAB PO SCH (21:41)
[2025-03-19 08:59] VITALS: BP 105/77; RESP 14; TEMP 98.6
--- NOTE | 2025-03-19 11:36 | CDI ---
Documentation Clarification Form Date: 03/19/2025 11:21:39 AM From: Viji Richardson RN, CCDS Phone: [phone] Admit Date: 03/11/2025 08:22:00 PM Patient Name: Balwinder Lucero Visit Number: [id number] Discharge Date: ATTENTION: The Clinical Documentation Specialists (CDI) and [facility] Coding Staff appreciate your assistance in clarifying documentation. Please respond to the clarification below the line at the bottom and electronically sign. The CDI & [facility] Coding staff will review the response and follow-up if needed. Please note: Queries are made part of the Legal Health Record. If you have any questions, please contact the author of this message via ITS. DoctorUri Bellamy Moderate to severe protein calorie malnutrition is documented in the progress notes. Additional clarification regarding the severity of malnutrition is requested. History/Risk Factors: GERD/Reflux, Clinical Indicators: 84-year-old male presents to the ER for failure to thrive, including poor oral intake, 20 pound weight loss and significant debility with performs activities of daily living. Current BMI: 18.7 5 Nutrition intake Poor Appetite Poor Physical finding Underweight 03/16 Nutrition intake Fair 25-50% Appetite Poor Physical findings Underweight 03/11 Total protein 6.2, Albumin 3.2 RD Consult Assessment: Unintended weight loss Poor appetite, failure to thrive Treatment: Ensure enlive TID Monitor PO, supplement intake/tolerance Please clarify the severity of malnutrition, if known: [ ] Mild Protein-Calorie Malnutrition [ ] Moderate Protein-Calorie Malnutrition [x ] Severe Protein-Calorie Malnutrition [ ] Other condition, please specify [ ] Unable to Determine (Template Last Revised: May 2023) MTDD
[2025-03-19 12:13] VITALS: PULSE 75
--- NOTE | 2025-03-19 12:54 | P.DS ---
Providers Date of admission: 03/11/25 20:22 Attending physician: Nathanael Kendrick Consults: 03/11/25 20:18 Consult Physician Routine Consulting Provider: Emiliano Gaffney Consult Reason/Comments: pneumonia Do you want consulting provider notified?: Yes Primary care physician: Joanne Bergman Hospital Course: Discharge Diagnosis: #Failure to thrive, on Wellbutrin and Remeron #Generalized weakness #Moderate to severe protein caloric malnutrition #Acute metabolic encephalopathy, resolved #History of dementia #Transaminitis Hospital Course: Patient is a 84-year-old male with a history of CAD, A-fib, COPD, GERD, hyperlipidemia, hypertension, presented [facility] the ER from [facility] with complaints of generalized weakness, weight loss, and altered mental status with concerns for failure to thrive. The patient has been undergoing subacute rehab for last 3 weeks since he has been recovering from weakness after he was admitted to the hospital in [place] for diarrhea and gastritis. History was obtained by daughter over the phone who states that patient normally is alert and oriented to time , place and person however she has been getting notifications from subacute rehab to the patient from last couple weeks or so has been losing weight approximately 20 pounds and is not eating or drinking well. Family became concerned and decided to bring the patient for further evaluation to the ER. Laboratory evaluation shows WBC 14.28, hemoglobin 15.8, platelet count 279, sodium 136, potassium 4.0, BUN 18, creatinine 1.01, calcium 10.4, magnesium 1.7, AST 89, ALT 123, ALP 203, total protein 6.2, albumin 3.2. Urinalysis positive for mild proteinuria. Respiratory viral serology negative. EKG done in the ER shows normal sinus rhythm with ventricular rate of 56 bpm, first-degree AV block, MN interval 246, QRS duration 138 ms, QTc [address] elevation noted. Chest x-ray shows retrocardiac opacity. Brain CT unremarkable for acute intracranial process. Initially there was concern for pneumonia based on chest x-ray and patient presentation therefore course of antibiotic was started. Pulmonology was consulted and repeat chest x-ray shows a retrocardiac opacity and repeat lab work shows downward trending white blood cell count and procalcitonin was negative. Therefore antibiotics were discontinued.Currently patient is feeling better. He is AAO x 1. Mentation at baseline. Patient not complaining of any shortness of breath, chest pain, abdominal pain, nausea, vomiting, diarrhea constipation. Although there is concern for failure to thrive as patient seems unmotivated and is not ambulating and eating much. He was on Wellbutrin we will add Remeron as an additional antidepressant and a stimulant. Otherwise patient is hemodynamically stable and will be discharged to the [facility] facility. Prognosis continues to be guarded. Discharge disposition: [facility] Vital signs reviewed. Gen: in no apparent distress, resting comfortably in bed Eyes: PERRLA, EOMI, no scleral injection or icterus HENT: normocephalic, atraumatic, good hearing acuity, moist mucous membranes Neck: full range of motion Resp: CTAB, no rales, rhonchi, or wheezes CVS: normal S1 and S2, no murmurs, rubs or gallops, no edema GI: soft, NTTP, ND, no hepatosplenomegaly : no suprapubic tenderness, no CVAT, lopez catheter [is/not] present MSK: no clubbing, no cyanosis, no noted contractures of extremities Skin: no noted rashes, petechiae; temperature of skin is appropriate Neuro: moving all extremities without signs of weakness, CN II-XII intact Psych: cooperative, euthymic mood, insight and judgment intact Dictation was produced using [employer] dictation software. Please excuse any grammatical, word or spelling errors. Attestation Attestation/ Repair Operator Note: Attestation to D/C Summary, Participation (I saw and evaluated the patient with the Resident, and I reviewed and discussed the patient with the Resident and agree with the Resident's findings and plans as documented above., immediately available, management reviewed and discussed), I agree with findings & plan, Provider Signature (DOT WILLIAM, CME Sepulveda. Patient Condition at Discharge: Stable Plan - Discharge Summary Discharge Rx Participant: Yes New Discharge Prescriptions: New Mirtazapine [Remeron] 15 mg PO HS tab Continue Atorvastatin [Lipitor] 20 mg PO HS Apixaban [Eliquis] 2.5 mg PO BID@0800,1700 Cetirizine HCl [Zyrtec] 10 mg PO DAILY PRN PRN Reason: Allergy Symptoms allopurinoL 100 mg PO DAILY@0800 Ondansetron [Zofran] 4 mg PO Q6H PRN PRN Reason: Nausea And Vomiting Ipratropium-Albuterol Nebulize [Duoneb 0.5 mg-3 mg/3 ml Soln] 3 ml INHALATION RT-QID PRN PRN Reason: Shortness Of Breath Or Wheezing Vitamin B Complex 1 cap PO HS Omeprazole 20 mg PO DAILY@0600 Fluticasone Propion/Salmeterol [Wixela 500-50 Inhub] 2 puff INHALATION RT- DAILY Metoprolol Succinate (ER) [Toprol XL] 12.5 mg PO DAILY@0800 Colchicine 0.6 mg PO BID@0800,1700 Loperamide HCl [Imodium A-D] 2 mg PO Q2H PRN PRN Reason: Diarrhea Acetaminophen [Tylenol Arthritis] 650 mg PO Q4H PRN PRN Reason: Pain Multivit-Min/FA/Lycopen/Lutein [Centrum Silver Tablet] 1 tab PO HS buPROPion XL [Wellbutrin XL] 300 mg PO DAILY@0800 No Action Ipratropium-Albuterol Nebulize [Duoneb 0.5 mg-3 mg/3 ml Soln] 3 ml INHALATION DIRECTED PRN PRN Reason: Shortness Of Breath guaiFENesin SYRUP 100MG/5ML [Robitussin] 200 mg PO Q4H PRN PRN Reason: Cough Magnesium Hydroxide [Milk of Magnesia Concentrate] 7,200 mg PO Q48H PRN PRN Reason: Constipation bisacodyL [Dulcolax] 10 mg RECTAL DAILY PRN PRN Reason: Constipation Na Phos,M-B/Na Phos,Di-Ba [Fleet Adult] 133 ml RECTAL DAILY PRN PRN Reason: Constipation Discharge Medication List Atorvastatin [Lipitor] 20 mg PO HS 10/17/18 [History] Apixaban [Eliquis] 2.5 mg PO BID@0800,1700 06/05/20 [History] Cetirizine HCl [Zyrtec] 10 mg PO DAILY PRN 06/10/23 [History] Colchicine 0.6 mg PO BID@0800,1700 06/10/23 [History] Metoprolol Succinate (ER) [Toprol XL] 12.5 mg PO DAILY@0800 06/10/23 [History] allopurinoL 100 mg PO DAILY@0800 06/10/23 [History] Acetaminophen [Tylenol Arthritis] 650 mg PO Q4H PRN 03/11/25 [History] Fluticasone Propion/Salmeterol [Wixela 500-50 Inhub] 2 puff INHALATION RT-DAILY 03/11/25 [History] Ipratropium-Albuterol Nebulize [Duoneb 0.5 mg-3 mg/3 ml Soln] 3 ml INHALATION RT-QID PRN 03/11/25 [History] Loperamide HCl [Imodium A-D] 2 mg PO Q2H PRN 03/11/25 [History] Multivit-Min/FA/Lycopen/Lutein [Centrum Silver Tablet] 1 tab PO HS 03/11/25 [History] Omeprazole 20 mg PO DAILY@0603/11/25 [History] Ondansetron [Zofran] 4 mg PO Q6H PRN 03/11/25 [History] Vitamin B Complex 1 cap PO HS 03/11/25 [History] buPROPion XL [Wellbutrin XL] 300 mg PO DAILY@0803/11/25 [History] Mirtazapine [Remeron] 15 mg PO HS tab 03/19/25 [Rx] Ipratropium-Albuterol Nebulize [Duoneb 0.5 mg-3 mg/3 ml Soln] 3 ml INHALATION DIRECTED PRN 03/21/25 [History] Magnesium Hydroxide [Milk of Magnesia Concentrate] 7,200 mg PO Q48H PRN 03/21/25 [History] Na Phos,M-B/Na Phos,Di-Ba [Fleet Adult] 133 ml RECTAL DAILY PRN 03/21/25 [History] bisacodyL [Dulcolax] 10 mg RECTAL DAILY PRN 03/21/25 [History] guaiFENesin SYRUP 100MG/5ML [Robitussin] 200 mg PO Q4H PRN 03/21/25 [History] Follow up Appointment(s)/Referral(s): Joanne Bergman DO [Primary Care Provider] - 1-2 days (ECF please call for appointment after discharge from subacute rehab) Patient Instructions/Handouts: Failure to Thrive (DC) Activity/Diet/Wound Care/Special Instructions: Follow-up with your PCP. Discharge Disposition: TRANSFER TO SNF/ECF
--- NOTE | 2025-03-19 16:51 | P.PN ---
Subjective Progress Note Date: 03/19/25 This is an 84-year-old male patient who was a poor historian. He was brought in from [facility] with a 1 week history of increasing weakness debility and poor appetite. He has a history of coronary disease with previous stent placement, former smoker, gout, hypertension, hyperlipidemia, hearing disorder, congestive heart failure, chronic obstructive pulmonary disease, atrial flutter anticoagulated with Eliquis. A chest x-ray revealed a left lower lobe infiltrate and there was some concern regarding possible pneumonia. CT scan of the head revealed no acute intracranial process. White count 10.4. Hemoglobin 15.2. Platelets 255. Sodium 137. Potassium 3.6. Bicarb 25. BUN 16. Creatinine 1.16. Glucose 73. AST 78. ALT 126. Urinalysis clean. Viral screen was negative for influenza A/B, RSV or COVID. Procalcitonin is also negative at 0.20. He is seen today in consultation in the emergency department. He is awake and alert. Maintaining O2 saturations in the mid 90s on 2 L/min per nasal cannula. He has been afebrile. Hemodynamically stable. Unable to obtain much information from the patient himself. The patient is seen today March 13, 2025 in follow-up on the regular medical floor. He is currently resting comfortably in bed. Awake and alert in no acute distress. Maintaining O2 saturations in the 90s on 2 L/min per nasal cannula. No IV fluids. A bit more awake and alert today. He remains quite weak mostly in the lower extremities. Blood culture revealing no growth. Sputum culture revealing no growth. Acetone was negative at less than 0.20. He remains on D uoNeb inhalations, Symbicort. Anticoagulated with Eliquis. The patient is seen today March 14, 2025 in follow-up on the regular medical floor. He is awake and alert in no acute distress. Denies any worsening shortness of breath, cough or congestion. He is maintaining O2 saturations in the 90s on 2 L/min per nasal cannula. No IV fluids. He is continued on DuoNeb and elations, Symbicort. Anticoagulated with Eliquis. Blood culture revealed no growth. Sputum culture positive for Tabitha. On 03/15/2025, the patient is being seen for a follow-up. Resting comfortably in bed. No significant shortness of breath. No cough or sputum production. Remains on Symbicort. Remains on DuoNeb nebulizer treatments [id number]. Rest of the home medications have been resumed. Oral intake is quite diminished. The white cell count 11.2 with a hemoglobin of 15 and a platelet count of 252. Electrolytes at the time of admission were essentially within normal limits with a normal renal function. Mild dysplasia (in the LFTs. The viral screen was negative. Sputum sample was positive for Tabitha albicans. Chest x-ray done at time of admission showed retrocardiac opacity, likely secondary to atelectasis. The patient has no specific complaints. He is currently on 2 L of oxygen by nasal cannula with a pulse ox of 94%. The patient is afebrile. On 03/16/2025, no new complaints, oral intake remains quite diminished and the patient is probably taken on 5 to 10% of the food offered to him. No significant respiratory distress. Remains on 2 L of oxygen by nasal cannula. Awake alert and communicating. White cell count at 7.6 with hemoglobin 14.7 elevated from 256. on 03/17/2025, the patient is being seen for a follow-up. The patient remains essentially unchanged compared to yesterday. Resting comfortably in bed. He is awaiting ECF transfer. No labs are available from today. He remains on oxygen at 2 L with a pulse ox of 94%. No other significant events overnight. On 03/18/2025, no new issues. Remains on 2 L of oxygen by nasal cannula with a pulse ox of 95%. Electrolytes were all within normal limits. BUN 17 with a creatinine of 0.5. Medications remain unchanged. No significant respiratory distress. Remains on anticoagulation with Eliquis. Remains on DuoNeb treatments [id number]. On 03/19/2025, no issues, and the patient is being discharged to a halfway facility. Medications are unchanged. Prognosis guarded. There is concern for failure to thrive and the patient seems to be unmotivated, not ambulating and not eating much. Remeron was added to his regimen. No new labs from today. Objective - Vital Signs Vital signs: Vital Signs Temp 98.6 F 03/19/25 08:00 Pulse 75 03/19/25 08:00 Resp 14 03/19/25 08:00 BP 105/77 05/16/25 08:00 Pulse Ox 93 L 03/19/25 08:33 FiO2 Intake & Output 03/18/25 03/19/25 03/19/25 18:59 06:59 18:59 Weight 66.134 kg Other: Voiding Method Diaper # Voids 2 2 1 - Exam GENERAL EXAM: Alert, 84-year-old male, resting in bed, on 2 L nasal cannula, in no apparent distress. HEAD: Normocephalic. EYES: Normal reaction of pupils, equal size. NOSE: Clear with pink turbinates. THROAT: No erythema or exudates. NECK: No masses, no JVD. CHEST: No chest wall deformity. LUNGS: Equal air entry with few scattered rhonchi. CVS: S1 and S2 normal with no audible murmur, regular rhythm. ABDOMEN: No hepatosplenomegaly, normal bowel sounds, no guarding or rigidity. SPINE: No scoliosis or deformity SKIN: No rashes CENTRAL NERVOUS SYSTEM: No focal deficits, tone is normal in all 4 extremities. EXTREMITIES: There is no peripheral edema. No clubbing, no cyanosis. Peripheral pulses are intact. - Labs CBC & Chem 7: 03/16/25 03:23 03/18/25 04:35 Assessment and Plan Plan: Failure to thrive in a patient with increasing generalized weakness, poor appetite. Urinalysis clean, viral screen negative, procalcitonin negative Chronic obstructive pulmonary disease, currently inactive and stable History of previous chronic tobacco dependence Coronary artery disease with previous stent placement History of atrial flutter, anticoagulated with Eliquis History of congestive heart failure Hypertension Hyperlipidemia Hearing disorder History of gout halfway resident Plan: Clinically stable, no new complaints. Some improvement in his oral intake over the past 24 hours. Oxygenation stable and the patient remains on 2 L of oxygen by nasal cannula Chest x-ray shows some left lower lobe atelectatic changes Anticoagulated with Eliquis Continue Symbicort Remeron was added Continue bronchodilators as needed Increase his activity as tolerated Titrate down the FiO2 as tolerated Discharge today
--- NOTE | 2025-03-31 10:55 | CDI ---
Documentation Clarification Form Date: 03/31/2025 10:39:00 AM From: Viji Richardson RN, CCDS Phone: [phone] Admit Date: 03/11/2025 08:22:00 PM Patient Name: Balwinder Lucero Visit Number: [id number] Discharge Date: 03/19/2025 02:49:00 PM ATTENTION: The Clinical Documentation Specialists (CDI) and [facility] Coding Staff appreciate your assistance in clarifying documentation. Please respond to the clarification below the line at the bottom and electronically sign. The CDI & [facility] Coding staff will review the response and follow-up if needed. Please note: Queries are made part of the Legal Health Record. If you have any questions, please contact the author of this message via ITS. DoctorUri Oliveira Pneumonia is documented in your H/P and subsequent progress notes which may lack sufficient clinical evidence/support in the medical record. Additional clarification is requested. History/Risk Factors: Heart Failure, COPD, GERD/Reflux, Hypertension Clinical Indicators: 84-year-old male presents to the ER for failure to thrive, including poor oral intake. 03/11 CXR (2V): Left lower lobe infiltrate. Correlate for pneumonia. 03/11 VS: 111/74 74 18 97.6 99% RA 03/11 Lab: WBC 14.2, Neutrophils 11.18, Na 136, AST 89, ALT 123, Alk Phos 203 03/12 Procalcitonin <0.20 03/12 CXR (1V) Retrocardiac opacity redemonstrated concerning for pneumonia. 03/12 Pulmonary consult: 03/12 Pulmonary note: His procalcitonin level was normal. Antibiotics can be discontinued. Chest x-ray showed a possible retrocardiac density. It probably relates more to atelectasis. Failure to thrive in a patient with increasing generalized weakness, viral screen negative, procalcitonin negative. Chronic obstructive pulmonary disease, currently inactive and stable Treatment: Levaquin 750MG IV ONCE 03/11 Change to PO 03/12 -DC DuoNeb Inhalation -RT Q6 HRS PRN Symbicort Inhalers 2 Puff Inhalation BID Please clarify if pneumonia is a valid diagnosis? [ ] No, pneumonia is ruled out [ x ] Yes, pneumonia is present as evidence by (additional clinical support): Retrocardiac opacity on CXR and eleveted WBC [ ] Other (please specify diagnosis) [ ] Unable to determine (Template Last Revised: April 2024) MTDD
== END 2025-03-19 14:49 | DRG 640 ==
LOC: EC 15:23 → 5NMEDONC 20:22 → 4SSUR 03-12 18:27
PROVIDERS: ADMIT Hospitalist; ATTEND Hospitalist
DX: R62.7 Adult failure to thrive (principal); E43 Unspecified severe protein-calorie malnutrition; J18.9 Pneumonia, unspecified organism; G93.41 Metabolic encephalopathy; J44.0 Chronic obstructive pulmonary disease with (acute) lower respiratory infection; I48.92 Unspecified atrial flutter; I50.9 Heart failure, unspecified; I11.0 Hypertensive heart disease with heart failure; F03.93 Unspecified dementia, unspecified severity, with mood disturbance; F32.A Depression, unspecified; J98.11 Atelectasis; Z68.1 Body mass index [BMI] 19.9 or less, adult; I48.91 Unspecified atrial fibrillation; R53.81 Other malaise; M19.90 Unspecified osteoarthritis, unspecified site; K21.9 Gastro-esophageal reflux disease without esophagitis; R74.01 Elevation of levels of liver transaminase levels; M10.9 Gout, unspecified; I44.0 Atrioventricular block, first degree; E78.5 Hyperlipidemia, unspecified; H91.90 Unspecified hearing loss, unspecified ear; I25.10 Atherosclerotic heart disease of native coronary artery without angina pectoris; Z79.01 Long term (current) use of anticoagulants; Z79.899 Other long term (current) drug therapy; Z86.0100 Personal history of colon polyps, unspecified; Z87.891 Personal history of nicotine dependence; Z95.5 Presence of coronary angioplasty implant and graft; Z86.14 Personal history of Methicillin resistant Staphylococcus aureus infection; Z11.52 Encounter for screening for COVID-19; Z79.51 Long term (current) use of inhaled steroids
CPT/HCPCS: 36415; 70450; 71045; 71046; 80048; 80053; 81001; 82140; 83605; 83735; 84145; 84484; 85025; 85610; 85730; 87040; 87070; 87205; 87636; 93005; 94640; 94760; 96365; 96366; 96375; 99285

== ENCOUNTER 2025-03-21 06:47 | Inpatient (IN) | payer MEDICARE ==
--- NOTE | 2025-03-21 07:11 | ED ---
General Adult HPI - General Stated complaint: APARNA Time Seen by Provider: 03/21/25 06:48 Source: patient, EMS, RN notes reviewed, old records reviewed Mode of arrival: EMS Limitations: no limitations - History of Present Illness Initial comments: 84-year-old male presents emergency department via EMS from [facility] for increased shortness of breath. Patient was recently discharged in the hospital after treatment for pneumonia was sent to [facility] but recently has required increase supplemental O2 with continuation of hypoxia. Patient has productive cough, nausea vomiting he denies any chest pain denies any localized abdominal pain no headache currently. Patient does have a history of COPD, CHF. - Related Data Home Medications Medication Instructions Recorded Confirmed Atorvastatin [Lipitor] 20 mg PO HS 10/17/18 03/11/25 Apixaban [Eliquis] 2.5 mg PO BID 06/05/20 03/11/25 Cetirizine HCl [Zyrtec] 10 mg PO DAILY PRN 06/10/23 03/11/25 Colchicine 0.6 mg PO BID 06/10/23 03/11/25 Metoprolol Succinate (ER) [Toprol 12.5 mg PO DAILY 06/10/23 03/11/25 XL] allopurinoL 100 mg PO DAILY 06/10/23 03/11/25 Acetaminophen [Tylenol Arthritis] 650 mg PO Q4H PRN 03/11/25 03/11/25 Clotrimazole Cream [Lotrimin Cream] 1 applic TOPICAL BID 03/11/25 03/11/25 Fluticasone Propion/Salmeterol 1 puff INHALATION RT-DAILY 03/11/25 03/11/25 [Wixela 500-50 Inhub] Ipratropium-Albuterol Nebulize 3 ml INHALATION RT-Q6H PRN 03/11/25 03/11/25 [Duoneb 0.5 mg-3 mg/3 ml Soln] Loperamide HCl [Imodium A-D] 2 mg PO Q2H PRN 03/11/25 03/11/25 Multivit-Min/FA/Lycopen/Lutein 1 tab PO HS 03/11/25 03/11/25 [Centrum Silver Tablet] Omeprazole 20 mg PO DAILY 03/11/25 03/11/25 Ondansetron [Zofran] 4 mg PO Q6H PRN 03/11/25 03/11/25 Vitamin B Complex 1 cap PO HS 03/11/25 03/11/25 buPROPion XL [Wellbutrin XL] 300 mg PO DAILY 03/11/25 03/11/25 Previous Rx's Medication Instructions Recorded Mirtazapine [Remeron] 15 mg PO HS tab 03/19/25 Allergies Allergy/AdvReac Type Severity Reaction Status Date / Time codeine Allergy Unknown Verified 03/21/25 07:21 Penicillins Allergy Anaphylaxis Verified 03/21/25 07:21 Iodinated Contrast Media AdvReac Diarrhea, Verified 03/21/25 07:21 [Iodinated Contrast- Oral RASH and IV Dye] Review of Systems ROS Statement: Those systems with pertinent positive or pertinent negative responses have been documented in the HPI. ROS Other: All systems not noted in ROS Statement are negative. Past Medical History Past Medical History: Atrial Flutter, Coronary Artery Disease (CAD), Heart Failure, COPD, GERD/Reflux, Hearing Disorder / Deafness, Hyperlipidemia, Hypertension, Osteoarthritis (OA), Renal Disease, Vascular Disorder Additional Past Medical History / Comment(s): hx. gout, hx. colon polyps, circulation problems in legs, slight decreased kidney function, shingles History of Any Multi-Drug Resistant Organisms: MRSA Date of last positivie culture/infection: 02/14/22 MDRO Source:: Right Thigh Past Surgical History: Cholecystectomy, Heart Catheterization, Heart Cath eterization With Stent Additional Past Surgical History / Comment(s): right bone graft to collar bone Past Anesthesia/Blood Transfusion Reactions: No Reported Reaction Date of Last Stent Placement:: 05/2020 Past Psychological History: No Psychological Hx Reported Smoking Status: Former smoker Past Alcohol Use History: None Reported Additional Past Alcohol Use History / Comment(s): quit smoking 2014, smoked 1ppd- 2PPD STARTED SMOKING AT AGE 14 Past Drug Use History: None Reported - Past Family History Mother Family Medical History: No Reported History General Exam Limitations: no limitations General appearance: alert, in no apparent distress Head exam: Present: atraumatic, normocephalic, normal inspection Eye exam: Present: normal appearance, PERRL, EOMI. Absent: scleral icterus, conjunctival injection, periorbital swelling ENT exam: Present: mucous membranes moist. Absent: normal exam Neck exam: Present: normal inspection, full ROM. Absent: tenderness, mening ismus, lymphadenopathy Respiratory exam: Present: wheezes, rhonchi. Absent: normal lung sounds bilaterally, respiratory distress, rales, stridor Cardiovascular Exam: Present: normal rhythm, tachycardia, normal heart sounds. Absent: systolic murmur, diastolic murmur, rubs, gallop, clicks GI/Abdominal exam: Present: soft, normal bowel sounds. Absent: distended, tenderness, guarding, rebound, rigid Extremities exam: Present: pedal edema Course Vital Signs 03/21/25 03/21/25 03/21/25 06:50 07:55 08:16 Temperature 98.9 F Pulse Rate 113 H 113 H 117 H Respiratory 24 22 24 Rate Blood Pressure 129/91 O2 Sat by Pulse 92 L Oximetry 03/21/25 08:24 Temperature Pulse Rate 118 H Respiratory 20 Rate Blood Pressure 115/83 O2 Sat by Pulse 92 L Oximetry EKG Findings - EKG Comments: EKG Findings:: EKG performed at 6: 57 sinus tachycardia with a rate of 115 NJ 206 QRS 110 QT/QTc 341/409 - EKG Results: EKG: interpreted by DUNCAN Medical Decision Making - Medical Decision Making Was pt. sent in by a medical professional or institution (, PA, PALEOLOGY TEACHER, urgent care, hospital, or longterm...) When possible be specific @ -residential Did you speak to anyone other than the patient for history (EMS, parent, family, police, friend...)? What history was obtained from this source @ -[No] Did you review nursing and triage notes (agree or disagree)? Why? @ -[I reviewed and agree with nursing and triage notes] Were old charts reviewed (outside hosp., previous admission, EMS record, old EKG, old radiological studies, urgent care reports/EKG's, longterm records)? Report findings @ -[No old charts were reviewed] Differential Diagnosis (chest pain, altered mental status, abdominal pain women, abdominal pain men, vaginal bleeding, weakness, fever, dyspnea, syncope, headache, dizziness, GI bleed, back pain, seizure, CVA, palpatations, mental health, musculoskeletal)? @ -Differential Dyspnea: Coronary syndrome, arrhythmia, tamponade, asthma, COPD, pulmonary embolism, pneumonia, pneumothorax, pulmonary effusion, anaphylaxis, diabetic ketoacidosis, flailed chest, pulmonary contusion, diaphragmatic rupture, anemia, neuromuscular, this is not meant to be an all-inclusive list. EKG interpreted by me (3pts min.). @ -[As above] X-rays interpreted by me (1pt min.). @ -Chest x-ray shows pulmonary edema versus interstitial pneumonia CT interpreted by me (1pt min.). @ -[None done] U/S interpreted by me (1pt. min.). @ -[None done] What testing was considered but not performed or refused? (CT, X-rays, U/S, labs)? Why? @ -[None] What meds were considered but not given or refused? Why? @ -[None] Did you discuss the management of the patient with other professionals (professionals i.e. Dr., PA, PALEOLOGY TEACHER, lab, RT, psych nurse, director of social services, residential appliance repair technician, teacher, chief media officer, outpatient case manager)? Give summary @ -MH for admission Was smoking cessation discussed for >3mins.? @ -[No] Was critical care preformed (if so, how long)? @ -35 minutes Were there social determinants of health that impacted care today? How? (Homelessness, low income, unemployed, alcoholism, drug addiction, transportation, low edu. Level, literacy, decrease access to med. care, residential, rehab)? @ -[No] Was there de-escalation of care discussed even if they declined (Discuss DNR or withdrawal of care, Hospice)? DNR status @ -[No] What co-morbidities impacted this encounter? (DM, HTN, Smoking, COPD, CAD, Cancer, CVA, ARF, Chemo, Hep., AIDS, mental health diagnosis, sleep apnea, morbid obesity)? @ -COPD CHF Was patient admitted / discharged? Hospital course, mention meds given and route, prescriptions, significant lab abnormalities, going to OR and other pertinent info. @ -Admitted patient presented for shortness of breath. Patient has acute hypoxic respiratory failure with pneumonia changes patient started on dual antibiotic therapy blood cultures drawn patient ABG showing PaO2 of 59 patient had increased oxygenation if no improvement was started on BiPAP. Patient will have consult pulmonary Undiagnosed new problem with uncertain prognosis? @ -[No] Drug Therapy requiring intensive monitoring for toxicity (Heparin, Nitro, Insulin, Cardizem)? @ -[No] Were any procedures done? @ -[No] Diagnosis/symptom? @ -Acute hypoxic respiratory failure, pneumonia Acute, or Chronic, or Acute on Chronic? @ -Acute Uncomplicated (without systemic symptoms) or Complicated (systemic symptoms)? @ -Complicated Side effects of treatment? @ -[No] Exacerbation, Progression, or Severe Exacerbation? @ -[No] Poses a threat to life or bodily function? How? (Chest pain, USA, NM, pneumonia, PE, COPD, DKA, ARF, appy, cholecystitis, CVA, Diverticulitis, Homicidal, Suicidal, threat to staff... and all critical care pts) @ -Yes pneumonia, pulmonary function - Lab Data Result diagrams: 03/21/25 07:48 03/21/25 07:48 Lab Results 03/21/25 03/21/25 03/21/25 Range/Units 07:48 07:48 07:48 WBC 9.47 (4.50-10.00) 10*3/uL RBC 5.64 H (4.40-5.60) 10*6/uL Hgb 17.4 H (13.0-17.0) g/dL Hct 52.4 H (39.6-50.0) % MCV 92.9 (80.0-97.0) fL MCH 30.9 (27.0-32.0) pg MCHC 33.2 (32.0-37.0) g/dL Plt Count 221 (140-440) 10*3/uL MPV 11.1 (9.5-12.2) fL Immature Gran % (Auto) 0.3 % Neutrophils % 81.2 % Lymphocytes % 7.5 % Monocytes % 10.0 % Eosinophils % 0.6 % Basophils % 0.4 % Immature Gran # 0.03 (0.00-0.04) 10*3/uL Neutrophils # 7.68 (1.80-7.70) 10*3/uL Lymphocytes # 0.71 L (0.90-5.00) 10*3/uL Monocytes # 0.95 (0.20-1.00) 10*3/uL Eosinophils # 0.06 (0.04-0.35) 10*3/uL Basophils # 0.04 (0.00-0.10) 10*3/uL PT 14.3 H (10.0-12.5) sec INR 1.3 H (<1.2) APTT 33.9 H (22.0-30.0) sec Sample Site ABG pH (7.35-7.45) ABG pCO2 (35-45) mmHg ABG pO2 (83-108) mmHg ABG HCO3 (21-25) mmol/L ABG Total CO2 (19-24) mmol/L ABG O2 Saturation (94-97) % ABG Base Excess mmol/L Eugene Test Hemoglobin (13.0-17.5) gm/dL FiO2 % Sodium 138 (137-145) mmol/L Potassium 5.1 (3.5-5.1) mmol/L Chloride 100 (98-107) mmol/L Carbon Dioxide 27 (22-30) mmol/L Anion Gap 11 mmol/L BUN 28 H (9-20) mg/dL Creatinine 1.28 H (0.66-1.25) mg/dL Est GFR (CKD-EPI)AfAm 59 (>60 ml/min/1.73 sqM) Est GFR (CKD-EPI)NonAf 51 (>60 ml/min/1.73 sqM) Glucose 101 H (74-99) mg/dL Plasma Lactic Acid Esau (0.7-2.0) mmol/L Calcium 10.0 (8.4-10.2) mg/dL Total Bilirubin 0.9 (0.2-1.3) mg/dL AST 44 (17-59) U/L ALT 70 H (4-49) U/L Alkaline Phosphatase 171 H (38-126) U/L Troponin I (0.000-0.034) ng/mL NT-Pro-B Natriuret Pep 1040 pg/mL Total Protein 6.8 (6.3-8.2) g/dL Albumin 3.8 (3.5-5.0) g/dL 03/21/25 03/21/25 03/21/25 Range/Units 07:48 07:48 07:55 WBC (4.50-10.00) 10*3/uL RBC (4.40-5.60) 10*6/uL Hgb (13.0-17.0) g/dL Hct (39.6-50.0) % MCV (80.0-97.0) fL MCH (27.0-32.0) pg MCHC (32.0-37.0) g/dL Plt Count (140-440) 10*3/uL MPV (9.5-12.2) fL Immature Gran % (Auto) % Neutrophils % % Lymphocytes % % Monocytes % % Eosinophils % % Basophils % % Immature Gran # (0.00-0.04) 10*3/uL Neutrophils # (1.80-7.70) 10*3/uL Lymphocytes # (0.90-5.00) 10*3/uL Monocytes # (0.20-1.00) 10*3/uL Eosinophils # (0.04-0.35) 10*3/uL Basophils # (0.00-0.10) 10*3/uL PT (10.0-12.5) sec INR (<1.2) APTT (22.0-30.0) sec Sample Site r rad ABG pH 7.44 (7.35-7.45) ABG pCO2 37 (35-45) mmHg ABG pO2 59 L* (83-108) mmHg ABG HCO3 25 (21-25) mmol/L ABG Total CO2 26 H (19-24) mmol/L ABG O2 Saturation 92.4 L (94-97) % ABG Base Excess 1.3 mmol/L Eugene Test Yes Hemoglobin 16.7 (13.0-17.5) gm/dL FiO2 36 % Sodium (137-145) mmol/L Potassium (3.5-5.1) mmol/L Chloride (98-107) mmol/L Carbon Dioxide (22-30) mmol/L Anion Gap mmol/L BUN (9-20) mg/dL Creatinine (0.66-1.25) mg/dL Est GFR (CKD-EPI)AfAm (>60 ml/min/1.73 sqM) Est GFR (CKD-EPI)NonAf (>60 ml/min/1.73 sqM) Glucose (74-99) mg/dL Plasma Lactic Acid Esau 1.5 (0.7-2.0) mmol/L Calcium (8.4-10.2) mg/dL Total Bilirubin (0.2-1.3) mg/dL AST (17-59) U/L ALT (4-49) U/L Alkaline Phosphatase (38-126) U/L Troponin I <0.012 (0.000-0.034) ng/mL NT-Pro-B Natriuret Pep pg/mL Total Protein (6.3-8.2) g/dL Albumin (3.5-5.0) g/dL Critical Care Time Critical Care Time: Yes Total Critical Care Time: 35 Disposition Clinical Impression: History of COPD, Pneumonia, Acute hypoxic respiratory failure Disposition: ADMITTED IP TO THIS HOSP Condition: Serious Referrals: Joanne Bergman DO [Primary Care Provider] - 1-2 days Time of Disposition: 08:34
[2025-03-21] MEDS: ONDANSETRON 4 MG/2 ML VIAL IVP STA (07:32)
[2025-03-21] MEDS: IPRATROPIUM-ALBUTEROL 3 ML NEB INHALATION STA (07:47)
[2025-03-21 07:53] LABS: Basophils # (A) 0.04 10*3/uL (0.00-0.10); Basophils % (A) 0.4 %; Eosinophils # (A) 0.06 10*3/uL (0.04-0.35); Eosinophils % (A) 0.6 %; HCT 52.4 % (39.6-50.0); HGB 17.4 g/dL (13.0-17.0); Lymphocytes # (A) 0.71 10*3/uL (0.90-5.00); Lymphocytes % (A) 7.5 %; MCH 30.9 pg (27.0-32.0); MCHC 33.2 g/dL (32.0-37.0); MCV 92.9 fL (80.0-97.0); Mean Platelet Volume 11.1 fL (9.5-12.2); Monocytes # (A) 0.95 10*3/uL (0.20-1.00); Neutrophils # (A) 7.68 10*3/uL (1.80-7.70); Neutrophils % (A) 81.2 %; Platelet Count 221 10*3/uL (140-440); RBC 5.64 10*6/uL (4.40-5.60); RDW 17.5 % (11.5-14.5); WBC 9.47 10*3/uL (4.50-10.00)
[2025-03-21 08:02] LABS: ABG Base Excess 1.3 mmol/L; ABG HCO3 25 mmol/L (21-25); ABG Oxygen Saturation 92.4 % (94-97); ABG PCO2 37 mmHg (35-45); ABG PH 7.44 (7.35-7.45); ABG TCO2 26 mmol/L (19-24); Allen Test Performed? Yes
[2025-03-21 08:03] LABS: INR 1.3 (<1.2); Partial Thromboplastin Time 33.9 sec (22.0-30.0); Prothrombin Time 14.3 sec (10.0-12.5)
[2025-03-21 08:05] LABS: ABG PO2 59 mmHg (83-108)
[2025-03-21 08:07] LABS: ALT 70 U/L (4-49); AST 44 U/L (17-59); African American GFR (CKD) 59 (>60 ml/min/1.73 sqM); Albumin 3.8 g/dL (3.5-5.0); Alkaline Phosphatase 171 U/L (38-126); Anion Gap 11 mmol/L; Blood Urea Nitrogen 28 mg/dL (9-20); Carbon Dioxide 27 mmol/L (22-30); Chloride 100 mmol/L (98-107); Glucose 101 mg/dL (74-99); Non-African American GFR(CKD) 51 (>60 ml/min/1.73 sqM); Potassium 5.1 mmol/L (3.5-5.1); Sodium 138 mmol/L (137-145); Total Bilirubin 0.9 mg/dL (0.2-1.3); Total Protein 6.8 g/dL (6.3-8.2)
[2025-03-21 08:16] LABS: NT-Pro-B-Type Natriuretic Pept 1040 pg/mL
--- NOTE | 2025-03-21 08:19 | XR ---
Chest, 2 view. CLINICAL INDICATION: Male, 84 years old with history of difficulty breathing COMPARISON: 03/11/2025 TECHNIQUE: PA and lateral views the chest are obtained. FINDINGS: Stable mild diffuse interstitial opacities represent mild pulmonary vascular congestion or chronic in terstitial change. The heart size is borderline enlarged. There is no airspace consolidation. There is no pleural effusion or pneumothorax. The heart, pulmonary vasculature, mediastinum and [place] appear normal. The osseous structures are intact. IMPRESSION: Mild diffuse interstitial opacity consistent with chronic interstitial changes versus mild CHF.. [facility], , 03/21/2025 8:17 AM
[2025-03-21] MEDS: SODIUM CHLORIDE 0.9% 500 ML 500 ML IV ONE (08:20)
[2025-03-21] MEDS ORDERED: IPRATROPIUM-ALBUTEROL 3 ML NEB INHALATION PRN ×2 (08:29→11:03)
[2025-03-21] MEDS ORDERED: PNEUMONIA PROTOCOL UTILIZED 1 EACH MISC PO PRN (08:29)
[2025-03-21] MEDS: AZITHROMYCIN 500 MG in SODIUM CHLORIDE 0.9% 250 ML IVPB STA ×2 (09:26→10:45)
[2025-03-21] MEDS: IPRATROPIUM-ALBUTEROL 3 ML NEB INHALATION SCH (11:01)
[2025-03-21] MEDS ORDERED: LORATADINE 10 MG TAB PO PRN (11:03)
--- NOTE | 2025-03-21 11:04 | P.HPIM ---
History of Present Illness H&P Date: 03/21/25 History of present illness; Patient is a 84-year-old male with a history of CAD, A-fib, COPD, GERD, hyperlipidemia, hypertension, presented to the ER from group home for shortness of breath. Patient was only recently discharged from the hospital. According to daughter who was at the bedside patient has been having worsening shortness of breath for the last day, patient also having cough which was productive.. Patient also started having nausea and vomiting. There was no complaint abdominal pain. There was no complaint of altered bowel movements. There is no complaint of any chest pain. Nursing staff at the facility noticed that the patient was requiring more oxygen and decided to send him to the ER Initial lab work done in the ER showed WBC 9.47, hemoglobin 17.4, platelet count 221, sodium 138, potassium 5.1, BUN 20, creatinine 1.28, glucose 101, AST 44, ALT 70 troponin 0.012 EKG done in the ER showed heart rate of115 , no ST segment elevation or depression seen, no T-wave inversions seen. Chest x-ray done in the ER diffuse interstitial opacity consistent with chronic interstitial changes versus mild CHF Patient admitted to internal medicine service REVIEW OF SYSTEMS: CONSTITUTIONAL: No fever, no malaise, no fatigue. HEENT: No recent visual problems or hearing problems. Denied any sore throat. CARDIOVASCULAR: As mentioned above PULMONARY: As mentioned above GASTROINTESTINAL: No diarrhea, no nausea, no vomiting, no abdominal pain. NEUROLOGICAL: No headaches, no weakness, no numbness. HEMATOLOGICAL: Denies any bleeding or petechiae. GENITOURINARY: Denies any burning micturition, frequency, or urgency. MUSCULOSKELETAL/RHEUMATOLOGICAL: Denies any joint pain, swelling, or any muscle pain. ENDOCRINE: Denies any polyuria or polydipsia. The rest of the 14-point review of systems is negative. PHYSICAL EXAMINATION: GENERAL: The patient is chronically ill looking, alert to self HEENT: Pupils are round and equally reacting to light. EOMI. No scleral icterus. No conjunctival pallor. Normocephalic, atraumatic. No pharyngeal erythema. No thyromegaly. CARDIOVASCULAR: S1 and S2 present. No murmurs, rubs, or gallops. PULMONARY: Diminished breath sounds at the bases, no wheezing or crackles. ABDOMEN: Soft, nontender, nondistended, normoactive bowel sounds. No palpable organomegaly. MUSCULOSKELETAL: No joint swelling or deformity. EXTREMITIES: No cyanosis, clubbing, or pedal edema. NEUROLOGICAL: Gross neurological examination did not reveal any focal deficits. SKIN: No rashes. Assessment and plan Acute on chronic hypoxic respiratory failure Bacterial pneumonia Generalized weakness Moderate to severe protein caloric malnutrition History of dementia Transaminitis Chronic obstructive pulmonary disease History of previous chronic tobacco dependence Coronary artery disease with previous stent placement History of atrial flutter, anticoagulated with Eliquis History of congestive heart failure Hypertension hyperlipidemia Hearing disorder History of gout Monitor vital signs Monitor CBC Monitor CMP Continue telemetry monitoring Ordered blood cultures ordered sputum culture Ordered CRP Ordered ESR Ordered a proBNP and Pro-Clement Start IV Rocephin azithromycin Ordered antiemetics Ordered breathing treatments Consult pulmonary Consult ID Had a long discussion with patient's family at the bedside regarding goals of care and CODE STATUS, at this time patient family are keen on keeping him full code Labs and medication were reviewed.. Continue same treatment. Continue with symptomatic treatment. Resume home medication. Monitor labs and vitals. DVT and GI prophylaxis. Further recommendations as per clinical course of the patient Dictation was produced using [employer] dictation software. please excuse any grammatical, word or spelling errors. Past Medical History Past Medical History: Atrial Flutter, Coronary Artery Disease (CAD), Heart Failure, COPD, GERD/Reflux, Hearing Disorder / Deafness, Hyperlipidemia, Hypertension, Osteoarthritis (OA), Renal Disease, Vascular Disorder Additional Past Medical History / Comment(s): hx. gout, hx. colon polyps, circulation problems in legs, slight decreased kidney function, shingles History of Any Multi-Drug Resistant Organisms: MRSA Date of last positivie culture/infection: 02/14/22 MDRO Source:: Right Thigh Past Surgical History: Cholecystectomy, Heart Catheterization, Heart Catheterization With Stent Additional Past Surgical History / Comment(s): right bone graft to collar bone Past Anesthesia/Blood Transfusion Reactions: No Reported Reaction Date of Last Stent Placement:: 05/2020 Past Psychological History: No Psychological Hx Reported Smoking Status: Former smoker Past Alcohol Use History: None Reported Additional Past Alcohol Use History / Comment(s): quit smoking 2014, smoked 1ppd- 2PPD STARTED SMOKING AT AGE 14 Past Drug Use History: None Reported - Past Family History Mother Family Medical History: No Reported History Medications and Allergies Home Medications Medication Instructions Recorded Confirmed Type Atorvastatin [Lipitor] 20 mg PO HS 10/17/18 03/11/25 History Apixaban [Eliquis] 2.5 mg PO BID 06/05/20 03/11/25 History Cetirizine HCl [Zyrtec] 10 mg PO DAILY PRN 06/10/23 03/11/25 History Colchicine 0.6 mg PO BID 06/10/23 03/11/25 History Metoprolol Succinate (ER) [Toprol 12.5 mg PO DAILY 06/10/23 03/11/25 History XL] allopurinoL 100 mg PO DAILY 06/10/23 03/11/25 History Acetaminophen [Tylenol Arthritis] 650 mg PO Q4H PRN 03/11/25 03/11/25 History Clotrimazole Cream [Lotrimin Cream] 1 applic TOPICAL BID 03/11/25 03/11/25 History Fluticasone Propion/Salmeterol 1 puff INHALATION RT-DAILY 03/11/25 03/11/25 Hi story [Wixela 500-50 Inhub] Ipratropium-Albuterol Nebulize 3 ml INHALATION RT-Q6H PRN 03/11/25 03/11/25 History [Duoneb 0.5 mg-3 mg/3 ml Soln] Loperamide HCl [Imodium A-D] 2 mg PO Q2H PRN 03/11/25 03/11/25 History Multivit-Min/FA/Lycopen/Lutein 1 tab PO HS 03/11/25 03/11/25 History [Centrum Silver Tablet] Omeprazole 20 mg PO DAILY 03/11/25 03/11/25 History Ondansetron [Zofran] 4 mg PO Q6H PRN 03/11/25 03/11/25 History Vitamin B Complex 1 cap PO HS 03/11/25 03/11/25 History buPROPion XL [Wellbutrin XL] 300 mg PO DAILY 03/11/25 03/11/25 History Mirtazapine [Remeron] 15 mg PO HS tab 03/19/25 Rx Allergies Allergy/AdvReac Type Severity Reaction Status Date / Time codeine Allergy Unknown Verified 03/21/25 07:21 Penicillins Allergy Anaphylaxis Verified 03/21/25 07:21 Iodinated Contrast Media AdvReac Diarrhea, Verified 03/21/25 07:21 [Iodinated Contrast- Oral RASH and IV Dye] Physical Exam Vitals: Vital Signs Temp Pulse Resp BP Pulse Ox 03/21/25 10:00 108 H 18 85/69 95 03/21/25 09:32 112 H 19 89/58 92 L 03/21/25 09:23 112 H 19 96/78 94 L 03/21/25 08:49 114 H 19 110/79 94 L 03/21/25 08:24 118 H 20 115/83 92 L 03/21/25 08:16 117 H 24 03/21/25 07:55 113 H 22 03/21/25 06:50 98.9 F 113 H 24 129/91 92 L Intake and Output 03/20/25 03/21/25 03/21/25 22:59 06:59 14:59 Other: Weight 72.575 kg Results CBC & Chem 7: 03/21/25 07:48 03/21/25 07:48 Labs: Abnormal Lab Results - Last 24 Hours (Table) 03/21/25 03/21/25 03/21/25 Range/Units 07:48 07:48 07:48 RBC 5.64 H (4.40-5.60) 10*6/uL Hgb 17.4 H (13.0-17.0) g/dL Hct 52.4 H (39.6-50.0) % Lymphocytes # 0.71 L (0.90-5.00) 10*3/uL PT 14.3 H (10.0-12.5) sec INR 1.3 H (<1.2) APTT 33.9 H (22.0-30.0) sec ABG pO2 (83-108) mmHg ABG Total CO2 (19-24) mmol/L ABG O2 Saturation (94-97) % BUN 28 H (9-20) mg/dL Creatinine 1.28 H (0.66-1.25) mg/dL Glucose 101 H (74-99) mg/dL ALT 70 H (4-49) U/L Alkaline Phosphatase 171 H (38-126) U/L 03/21/25 Range/Units 07:55 RBC (4.40-5.60) 10*6/uL Hgb (13.0-17.0) g/dL Hct (39.6-50.0) % Lymphocytes # (0.90-5.00) 10*3/uL PT (10.0-12.5) sec INR (<1.2) APTT (22.0-30.0) sec ABG pO2 59 L* (83-108) mmHg ABG Total CO2 26 H (19-24) mmol/L ABG O2 Saturation 92.4 L (94-97) % BUN (9-20) mg/dL Creatinine (0.66-1.25) mg/dL Glucose (74-99) mg/dL ALT (4-49) U/L Alkaline Phosphatase (38-126) U/L
[2025-03-21 11:53] LABS: Influenza A Not Detected (Not Detectd); Influenza B Not Detected (Not Detectd); RSV Not Detected (Not Detectd)
--- NOTE | 2025-03-21 14:58 | P.CNPUL ---
History of Present Illness Consult date: 03/21/25 Reason for consult: dyspnea, hypoxemia History of present illness: This is a 84-year-old male patient was brought back within 24 hours after being [facility] the [facility] for worsening shortness of breath, increased weakness, increased lethargy and generalized weakness and debility. Noted, during his last hospitalization, the patient's oral intake has been essentially minimal and he was failing to thrive. Based on that, the patient was given Remeron at the time of discharge. While in the [facility], he was noted to have increased cough and congestion worsening shortness of breath and for that reason the patient was brought in to the emergency department. Family is at the bedside. He is awake and alert. He is a poor historian. No reported aspiration. He has ongoing moderate to severe protein calorie malnutrition and dementia. Comorbidities are multiple. In the emergency, the patient was second was at 9.4 with a hemoglobin of 17.4 and a platelet count of 221. BUN is 20 with a creatinine of 1.28 and a sodium levels of 138 and a potassium level of 5.1. Glucose was 101. LFTs are normal. Troponins are negative. EKG showed no acute ST segment elevation or depression. Chest x-ray showed increased interstitial opacities in lung base bilaterally Based on all this, the patient was hospitalized the D-dimer was at 0.9. Blood gas was done emergency that showed a pH of 7.44 with a [id number] and pO2 of 59 in the patient's blood gas was done FiO2 36%. The viral screen was negative. proBNP level was 1420. The patient has generalized global weakness. No focal neurological deficits. He follows simple commands. Review of Systems Constitutional: Reports daytime sleepiness, Reports fatigue, Reports poor appetite, Reports weakness, Reports weight loss Eyes: denies as per HPI, denies blurred vision, denies bulging eye, denies decreased vision, denies diplopia, denies discharge, denies dry eye, denies irritation, denies itching, denies pain, denies photophobia, denies loss of peripheral vision, denies loss of vision, denies tunnel vision/blind spots Ears: bilateral: decreased hearing, deny: ear discharge, earache, tinnitus Ears, nose, mouth and throat: Reports as per HPI Breasts: absent: as per HPI, gynecomastia Cardiovascular: Reports decreased exercise tolerance, Reports dyspnea on exertion Respiratory: Reports cough, Reports cough with sputum, Reports dyspnea, Reports home oxygen Gastrointestinal: Reports as per HPI (Dysphagia) Genitourinary: Reports as per HPI Musculoskeletal: Reports gait dysfunction, Reports muscle weakness Musculoskeletal: absent: ankle pain, ankle stiffness, ankle swelling, as per HPI, elbow pain, elbow stiffness, elbow swelling, foot pain, foot stiffness, foot swelling, hand pain, hand stiffness, hand swelling, hip pain, hip stiffness, hip swelling, knee pain, knee stiffness, knee swelling, shoulder pain, shoulder stiffness, shoulder swelling, wrist pain, wrist stiffness, wrist swelling Integumentary: Reports as per HPI Neurological: Reports gait dysfunction, Reports hearing difficulties, Reports weakness Psychiatric: Reports as per HPI, Reports confusion Endocrine: Reports fatigue Hematologic/Lymphatic: Reports as per HPI Allergic/Immunologic: Reports as per HPI Past Medical History Past Medical History: Atrial Flutter, Coronary Artery Disease (CAD), Heart Failure, COPD, GERD/Reflux, Hearing Disorder / Deafness, Hyperlipidemia, Hypertension, Osteoarthritis (OA), Renal Disease, Vascular Disorder Additional Past Medical History / Comment(s): hx. gout, hx. colon polyps, circulation problems in legs, slight decreased kidney function, shingles History of Any Multi-Drug Resistant Organisms: MRSA Date of last positivie culture/infection: 02/14/22 MDRO Source:: Right Thigh Past Surgical History: Cholecystectomy, Heart Catheterization, Heart Catheter ization With Stent Additional Past Surgical History / Comment(s): right bone graft to collar bone Past Anesthesia/Blood Transfusion Reactions: No Reported Reaction Date of Last Stent Placement:: 05/2020 Past Psychological History: No Psychological Hx Reported Smoking Status: Former smoker Past Alcohol Use History: None Reported Additional Past Alcohol Use History / Comment(s): quit smoking 2014, smoked 1ppd- 2PPD STARTED SMOKING AT AGE 14 Past Drug Use History: None Reported - Past Family History Mother Family Medical History: No Reported History Medications and Allergies Home Medications Medication Instructions Recorded Confirmed Type Atorvastatin [Lipitor] 20 mg PO HS 10/17/18 03/21/25 History Apixaban [Eliquis] 2.5 mg PO BID@0800,1700 06/05/20 03/21/25 History Cetirizine HCl [Zyrtec] 10 mg PO DAILY PRN 06/10/23 03/21/25 History Colchicine 0.6 mg PO BID@0800,1700 06/10/23 03/21/25 History Metoprolol Succinate (ER) [Toprol 12.5 mg PO DAILY@0800 06/10/23 03/21/25 Hist ory XL] allopurinoL 100 mg PO DAILY@0800 06/10/23 03/21/25 History Acetaminophen [Tylenol Arthritis] 650 mg PO Q4H PRN 03/11/25 03/21/25 History Fluticasone Propion/Salmeterol 2 puff INHALATION RT-DAILY 03/11/25 03/21/25 History [Wixela 500-50 Inhub] Ipratropium-Albuterol Nebulize 3 ml INHALATION RT-QID PRN 03/11/25 03/21/25 History [Duoneb 0.5 mg-3 mg/3 ml Soln] Loperamide HCl [Imodium A-D] 2 mg PO Q2H PRN 03/11/25 03/21/25 History Multivit-Min/FA/Lycopen/Lutein 1 tab PO HS 03/11/25 03/21/25 History [Centrum Silver Tablet] Omeprazole 20 mg PO DAILY@0600 03/11/25 03/21/25 History Ondansetron [Zofran] 4 mg PO Q6H PRN 03/11/25 03/21/25 History Vitamin B Complex 1 cap PO HS 03/11/25 03/21/25 History buPROPion XL [Wellbutrin XL] 300 mg PO DAILY@0800 03/11/25 03/21/25 History Mirtazapine [Remeron] 15 mg PO HS tab 03/19/25 03/21/25 Rx Ipratropium-Albuterol Nebulize 3 ml INHALATION DIRECTED PRN 03/21/25 03/21/25 History [Duoneb 0.5 mg-3 mg/3 ml Soln] Magnesium Hydroxide [Milk of 7,200 mg PO Q48H PRN 03/21/25 03/21/25 History Magnesia Concentrate] Na Phos,M-B/Na Phos,Di-Ba [Fleet 133 ml RECTAL DAILY PRN 03/21/25 03/21/25 History Adult] bisacodyL [Dulcolax] 10 mg RECTAL DAILY PRN 03/21/25 03/21/25 History guaiFENesin SYRUP 100MG/5ML 200 mg PO Q4H PRN 03/21/25 03/21/25 History [Robitussin] Allergies Allergy/AdvReac Type Severity Reaction Status Date / Time codeine Allergy Unknown Verified 03/21/25 10:53 Penicillins Allergy Anaphylaxis Verified 03/21/25 10:53 Iodinated Contrast Media AdvReac Diarrhea, Verified 03/21/25 10:53 [Iodinated Contrast- Oral RASH and IV Dye] Physical Exam Vitals: Vital Signs Temp Pulse Resp BP Pulse Ox 03/21/25 11:11 107 H 20 03/21/25 11:01 107 H 22 03/21/25 10:00 108 H 18 85/69 95 03/21/25 09:32 112 H 19 89/58 92 L 03/21/25 09:23 112 H 19 96/78 94 L 03/21/25 08:49 114 H 19 110/79 94 L 03/21/25 08:24 118 H 20 115/83 92 L 03/21/25 08:16 117 H 24 03/21/25 07:55 113 H 22 03/21/25 06:50 98.9 F 113 H 24 129/91 92 L Intake and Output 03/20/25 03/21/25 03/21/25 22:59 06:59 14:59 Other: Weight 72.575 kg GENERAL EXAM: Alert, 84-year-old male, resting in bed, on 4 L nasal cannula, in no apparent distress. Ill looking, HEAD: Normocephalic. EYES: Normal reaction of pupils, equal size. NOSE: Clear with pink turbinates. THROAT: No erythema or exudates. Essentially edentulous NECK: No masses, no JVD. CHEST: No chest wall deformity. LUNGS: Equal air entry with few scattered rhonchi. Marked diminished breath sound bilateral especially lung bases along with bibasilar crackles CVS: S1 and S2 normal with no audible murmur, regular rhythm. ABDOMEN: No hepatosplenomegaly, normal bowel sounds, no guarding or rigidity. SPINE: No scoliosis or deformity SKIN: No rashes CENTRAL NERVOUS SYSTEM: No focal deficits, tone is normal in all 4 extremities. Generalized global weakness in all 4 extremities EXTREMITIES: There is no peripheral edema. No clubbing, no cyanosis. Peripheral pulses are intact. Results - Laboratory Findings CBC and BMP: 03/21/25 07:48 03/21/25 07:48 ABG ABG pH 7.44 (7.35-7.45) 03/21/25 07:55 ABG pCO2 37 mmHg (35-45) 03/21/25 07:55 ABG pO2 59 mmHg (83-108) L* 03/21/25 07:55 ABG O2 Saturation 92.4 % (94-97) L 03/21/25 07:55 PT/INR, D-dimer PT 14.3 sec (10.0-12.5) H 03/21/25 07:48 INR 1.3 (<1.2) H 03/21/25 07:48 Abnormal lab findings: Abnormal Labs 03/21/25 03/21/25 03/21/25 07:48 07:48 07:48 RBC 5.64 H Hgb 17.4 H Hct 52.4 H Lymphocytes # 0.71 L PT 14.3 H INR 1.3 H APTT 33.9 H ABG pO2 ABG Total CO2 ABG O2 Saturation BUN 28 H Creatinine 1.28 H Glucose 101 H ALT 70 H Alkaline Phosphatase 171 H 03/21/25 07:55 RBC Hgb Hct Lymphocytes # PT INR APTT ABG pO2 59 L* ABG Total CO2 26 H ABG O2 Saturation 92.4 L BUN Creatinine Glucose ALT Alkaline Phosphatase - Diagnostic Findings Chest x-ray: image reviewed Assessment and Plan Plan: Acute on chronic hypoxic respiratory failure currently on 4 L of oxygen by nasal cannula. Worsening interstitial infiltrates in lung base bilaterally. Rule out interstitial edema versus development of a pneumonia. This could be essentially hospital-acquired versus aspiration pneumonia. Failure to thrive in a patient with increasing generalized weakness, poor appetite and significant diminishment in oral intake. There may be also some difficulties in swallowing. The patient needs to be further investigated in this regard. Remeron was added during his last admission. The patient is not taking enough food to maintain his caloric requirements. History of CAD, with previous stenting. The patient is known to have triple- vessel disease and the patient was supposed to undergo bypass surgery, however he was not found to be an appropriate candidate. He was given stent to his LAD as the patient was found to have an 80% proximal LAD lesion. History of atrial flutterfibrillation and current rhythm is atrial fibrillation CHF, reduced LV function. The patient's Previous echocardiogram from 2021 showed an ejection fraction of 45 to 50% without any significant valve abnormalities pulmonary hypertension. Acute kidney injury, mild, probably due to vascular depletion History of COPD, from previous tobacco use. Dementia History of recurrent unexplained syncope, could be cardiac History of hyperlipidemia. History of hypertension. Deafness. GERD. History of gout. Peripheral vascular disease Plan Cover the patient empirically with IV antibiotics. The patient is currently on a combination of Rocephin and Zithromax. Oxygen to maintain saturation above 90%, currently on 4 L Perform swallow evaluation, will order a modified barium swallow for tomorrow Consider PEG tube insertion as the patient is not meeting his caloric req uirements Recheck procalcitonin level Resume bronchodilators Resume home medications Discussed the case with the family. Will continue to follow. He has a full CODE STATUS for now.
[2025-03-21] MEDS: APIXABAN 2.5 MG TABLET PO SCH (17:02)
[2025-03-21] MEDS ORDERED: NON FORMULARY DRUG (Vitamin B Complex [Vitamin B Complex] 1 EACH Capsule) PO SCH (21:00)
[2025-03-21] MEDS: MIRTAZAPINE 15 MG TAB PO SCH (21:21)
[2025-03-21] MEDS: COLCHICINE 0.6 MG EACH PO SCH (21:21)
[2025-03-21] MEDS: ATORVASTATIN 20 MG TAB PO SCH (21:21)
[2025-03-22] MEDS: PANTOPRAZOLE 40 MG TABLET PO SCH (06:29)
--- NOTE | 2025-03-22 07:23 | XR ---
EXAMINATION TYPE: XR chest 1V portable DATE OF EXAM: 03/22/2025 CLINICAL INDICATION: Male, 84 years old with history of pneumonia, progress study. TECHNIQUE: Single AP portable upright view of the chest is obtained. COMPARISON: Chest x-ray from one day earlier FINDINGS: Persistent left basilar opacity. Persistent cardiomegaly. Right lung remains clear. Osseou s structures are intact. IMPRESSION: Persisting cardiomegaly with left lower lung acute infiltrate and/or atelectasis. [facility], , 03/22/2025 7:20 AM
[2025-03-22] MEDS: SYMBICORT 160-4.5 MCG INHALER INHALATION SCH (08:12)
[2025-03-22 08:35] LABS: ALT 48 U/L (10-49); AST 29 U/L (14-35); Albumin 3.3 g/dL (3.8-4.9); Albumin/Globulin Ratio 1.32 Ratio (1.60-3.17); Alkaline Phosphatase 155 U/L (41-126); BUN/Creat Ratio 21.31 Ratio (12.00-20.00); Blood Urea Nitrogen 27.7 mg/dL (9.0-27.0); Calcium 9.4 mg/dL (8.7-10.3); Carbon Dioxide 22.3 mmol/L (21.6-31.8); Chloride 102 mmol/L (96-109); Globulin 2.5 g/dL (1.6-3.3); Glucose 76 mg/dL (70-110); Potassium 4.6 mmol/L (3.5-5.5); Sodium 138 mmol/L (135-145); Total Bilirubin 0.5 mg/dL (0.3-1.2); Total Protein 5.8 g/dL (6.2-8.2)
[2025-03-22] MEDS: METOPROLOL SUCCINATE (ER) 25 MG TAB.ER.24H PO SCH (09:34)
[2025-03-22] MEDS: buPROPion XL 300 MG TAB.ER.24H PO SCH (09:39)
[2025-03-22] MEDS: allopurinoL 100 MG TAB PO SCH (09:39)
[2025-03-22 09:43] LABS: Basophils # (A) 0.04 X 10*3/uL (0.00-0.10); Basophils % (A) 0.5 %; Eosinophils % (A) 1.2 %; HCT 46.7 % (39.6-50.0); HGB 14.9 g/dL (13.0-17.0); Lymphocytes # (A) 0.93 X 10*3/uL (0.90-5.00); Lymphocytes % (A) 10.9 %; MCH 30.4 pg (27.0-32.0); MCHC 31.9 g/dL (32.0-37.0); MCV 95.3 FL (80.0-97.0); Mean Platelet Volume 11.8 FL (9.5-12.2); Monocytes # (A) 1.16 X 10*3/uL (0.20-1.00); Monocytes % (A) 13.6 %; NRBC Per 100 WBC 0 X 10*3/uL (0.00-0.01); Neutrophils # (A) 6.29 X 10*3/uL (1.80-7.70); Neutrophils % (A) 73.3 %; Platelet Count 195 X 10*3/uL (140-440); RDW 17.4 % (11.5-14.5); WBC 8.56 X 10*3/uL (4.50-10.00)
[2025-03-22] MEDS ORDERED: METOPROLOL TARTRATE 5 MG/5 ML VIAL IVP PRN (09:50)
--- NOTE | 2025-03-22 10:01 | P.PN ---
Subjective Progress Note Date: 03/22/25 Patient is a 84-year-old male with a history of CAD, A-fib, COPD, GERD, hyperlipidemia, hypertension, [facility] from [facility] for shortness of breath. Patient was only recently discharged from the hospital. According to daughter who was at the bedside patient has been having worsening shortness of breath for the last day, patient also having cough which was productive.. Patient also started having nausea and vomiting. There was no complaint abdominal pain. There was no complaint of altered bowel movements. There is no complaint of any chest pain. Nursing staff at the facility noticed that the patient was requiring more oxygen and decided to send him to the ER Initial lab work done in the ER showed WBC 9.47, hemoglobin 17.4, platelet count 221, sodium 138, potassium 5.1, BUN 20, creatinine 1.28, glucose 101, AST 44, ALT 70 troponin 0.012 EKG done in the ER showed heart rate of115 , no ST segment elevation or depression seen, no T-wave inversions seen. Chest x-ray done in the ER diffuse interstitial opacity consistent with chronic interstitial changes versus mild CHF Patient admitted to internal medicine service 03/22. Patient seen and examined. Patient is lethargic, unable to swallow meds, swallow study ordered for today. Pulmonology had discussed with patient family, at this time they are open to PEG tube placement. Lab review showed WBC 8.5, hemoglobin 14.9, platelet count 195, D-dimer was elevated 0.9. Will order CT angio chest, patient be premedicated with contrast allergy prophylaxis REVIEW OF SYSTEMS: Review of system cannot be obtained as patient is very lethargic, PHYSICAL EXAMINATION: GENERAL: The patient is lethargic HEENT: Pupils are round and equally reacting to light. EOMI. No scleral icterus. No conjunctival pallor. Normocephalic, atraumatic. No pharyngeal erythema. No thyromegaly. CARDIOVASCULAR: S1 and S2 present. No murmurs, rubs, or gallops. PULMONARY: Coarse breath sound bilaterally ABDOMEN: Soft, nontender, nondistended, normoactive bowel sounds. No palpable organomegaly. MUSCULOSKELETAL: No joint swelling or deformity. EXTREMITIES: No cyanosis, clubbing, or pedal edema. NEUROLOGICAL: Gross neurological examination did not reveal any focal deficits. SKIN: No rashes. Assessment and plan Acute on chronic hypoxic respiratory failure Bacterial pneumonia Generalized weakness Moderate to severe protein caloric malnutrition History of dementia Transaminitis Chronic obstructive pulmonary disease History of previous chronic tobacco dependence Coronary artery disease with previous stent placement History of atrial flutter, anticoagulated with Eliquis History of congestive heart failure Hypertension hyperlipidemia Hearing disorder History of gout Monitor vital signs Monitor CBC Monitor CMP Continue telemetry monitoring Follow-up on blood cultures Follow-up on sputum culture Continue IV Rocephin azithromycin Continue breathing treatments CT chest PE protocol ordered Consulted surgery for PEG tube placement Follow-up on pulmonology recommendation Follow-up on ID recommendations Labs and medication were reviewed.. Continue same treatment. Continue with symptomatic treatment. Resume home medication. Monitor labs and vitals. DVT and GI prophylaxis. Further recommendations as per clinical course of the patient Dictation was produced using [employer] dictation software. please excuse any grammatical, word or spelling errors. Objective - Vital Signs Vital signs: Vital Signs Temp 98.1 F 03/22/25 09:21 Pulse 98 03/22/25 09:35 Resp 16 03/22/25 09:35 BP 100/75 03/22/25 09:35 Pulse Ox 93 L 03/22/25 09:35 FiO2 - Labs CBC & Chem 7: 03/22/25 06:00 03/22/25 06:00 Labs: Abnormal Lab Results - Last 24 Hours (Table) 03/21/25 03/21/25 03/21/25 Range/Units 11:30 11:30 11:30 MCHC (32.0-37.0) g/dL RDW (11.5-14.5) % Monocytes # (0.20-1.00) X 10*3/uL ESR 23 H (0-20) mm/Hr D-Dimer 0.90 H (<0.60) mg/L FEU Anion Gap (4.00-12.00) mmol/L BUN (9.0-27.0) mg/dL Est GFR (CKD-EPI) (>=60) BUN/Creatinine Ratio (12.00-20.00) Ratio Alkaline Phosphatase (41-126) U/L C-Reactive Protein 4.0 H (<1.0) mg/dL Total Protein (6.2-8.2) g/dL Albumin (3.8-4.9) g/dL Albumin/Globulin Ratio (1.60-3.17) Ratio 03/22/25 03/22/25 Range/Units 06:00 06:00 MCHC 31.9 L (32.0-37.0) g/dL RDW 17.4 H (11.5-14.5) % Monocytes # 1.16 H (0.20-1.00) X 10*3/uL ESR (0-20) mm/Hr D-Dimer (<0.60) mg/L FEU Anion Gap 13.70 H (4.00-12.00) mmol/L BUN 27.7 H (9.0-27.0) mg/dL Est GFR (CKD-EPI) 54 L (>=60) BUN/Creatinine Ratio 21.31 H (12.00-20.00) Ratio Alkaline Phosphatase 155 H (41-126) U/L C-Reactive Protein (<1.0) mg/dL Total Protein 5.8 L (6.2-8.2) g/dL Albumin 3.3 L (3.8-4.9) g/dL Albumin/Globulin Ratio 1.32 L (1.60-3.17) Ratio
[2025-03-22] MEDS: AZITHROMYCIN 500 MG in SODIUM CHLORIDE 0.9% 250 ML IVPB SCH (10:25)
[2025-03-22] MEDS: diphenhydrAMINE 50 MG/ML 1 ML VIAL IVP ONE (10:36)
[2025-03-22] MEDS: FAMOTIDINE 20 MG/2 ML VIAL IV ONE (10:37)
--- NOTE | 2025-03-22 10:38 | US ---
EXAMINATION TYPE: US venous doppler duplex LE DATE OF EXAM: 03/22/2025 10:08 AM COMPARISON: NONE CLINICAL INDICATION: Male, 84 years old with history of swelling, elevated d-dimer; Elevated D-Dimer, pt unresponsive, Pain TECHNIQUE: The lower extremity deep venous system is examined utilizing real time linear array sonog torey with graded compression, color doppler sonography, and spectral doppler. SIDE PERFORMED: Bilateral FINDINGS: VESSELS IMAGED: Common Femoral Vein Deep Femoral Vein Greater Saphenous Vein * Femoral Vein Popliteal Vein Small Saphenous Vein * Proximal Calf Veins (* superficial vessels) Right Leg: Negative for DVT, Color Doppler imaging shows patency of the vessels. Spectral waveforms are within normal limits. Left Leg: Negative for DVT, Color Doppler imaging shows patency of the vessels. Spectral waveforms a re within normal limits. IMPRESSION: No ultrasound evidence for acute deep venous thrombosis. [facility], , 03/22/2025 10:36 AM
[2025-03-22] MEDS: methylPREDNISolone SOD SUCCI 125 MG/2 ML VIAL IV ONE (10:42)
--- NOTE | 2025-03-22 11:39 | CT ---
EXAMINATION TYPE: CT chest angio for PE DATE OF EXAM: 03/22/2025 COMPARISON: CTA chest September 23, 2022 CLINICAL INDICATION: Male, 84 years old with history of Dyspnea, Dyspnea, TECHNIQUE: CTA scan of the thorax is performed with IV Contrast, patient injected with 100 ml mL of Isovue 370, pulmonary embolism protocol. MIP Images are created on CT scanner and reviewed. CT DLP: 459.3 mGycm. Automated Exposure Control for Dose Reduction was Utilized. FINDINGS: Exam is suboptimal due to patient motion. This particularly limits evaluation for subcentim eter nodules. LUNGS: Moderate to severe underlying emphysematous change bilaterally is redemonstrated. Dependent co nsolidation and/or atelectasis in the right lower lobe is seen. There is more prominent lower lung ac suzette infiltrates and/or atelectasis. Stable 7 mm partially calcified peripheral left lower lung pulmon randi nodule image 76. No pleural effusion or pneumothorax seen bilaterally. HEART: Cardiomegaly redemonstrated. Moderate coronary artery calcification and/or stents are redemons trated. MEDIASTINUM: There is satisfactory enhancement of the pulmonary artery and its branches, there is no CT evidence for pulmonary embolism. There are no greater than 1 cm noncalcified hilar or mediastinal lymph nodes. Mild cardiomegaly. No Pericardial effusion is seen. OTHER: There is new Moderate-size hiatal hernia. A rim calcified 1.5 cm thin-walled cyst anterior marielena er is redemonstrated and stable presumed benign. Scoliotic curvatures to the spine is redemonstrated. IMPRESSION: 1. No CT evidence for acute pulmonary embolism. 2. Suboptimal study. Moderate to advanced underlying change with left greater than right lower lung a cute infiltrates and/or atelectasis now present. [facility], , 03/22/2025 11:37 AM
--- NOTE | 2025-03-22 12:05 | FL ---
Exam Date: 03/22/2025 11:49 AM. Modified barium swallow for dysphagia. Consistencies administered: Various consistency of barium. No images were sent to PACS. Please see speech pathology report. DAP: 122.94 mGym2 Gycm2 [facility], , 03/22/2025 12:02 PM
--- NOTE | 2025-03-22 12:34 | P.PN ---
Subjective Progress Note Date: 03/22/25 This is a 84-year-old male patient was brought back within 24 hours after [facility] for worsening shortness of breath, increased weakness, increased lethargy and generalized weakness and debility. Noted, during his last hospitalization, the patient's oral intake has been essentially minimal and he was failing to thrive. Based on that, the patient was given Remeron at the time of discharge. While in the [facility], he was noted to have increased cough and congestion worsening shortness of breath and for that reason the patient was brought in to the emergency department. Family is at the bedside. He is awake and alert. He is a poor historian. No reported aspiratio n. He has ongoing moderate to severe protein calorie malnutrition and dementia. Comorbidities are multiple. In the emergency, the patient was second was at 9.4 with a hemoglobin of 17.4 and a platelet count of 221. BUN is 20 with a creatinine of 1.28 and a sodium levels of 138 and a potassium level of 5.1. Glucose was 101. LFTs are normal. Troponins are negative. EKG showed no acute ST segment elevation or depression. Chest x-ray showed increased interstitial opacities in lung base bila terally.Based on all this, the patient was hospitalized the D-dimer was at 0.9. Blood gas was done emergency that showed a pH of 7.44 with a [id number] and pO2 of 59 in the patient's blood gas was done FiO2 36%. The viral screen was negative. proBNP level was 1420. The patient has generalized global weakness. No focal neurological deficits. He follows simple commands. The patient is seen today March 22, 2025 in follow-up in the emergency department. He is currently resting on a stretcher. Awake and alert in no acute distress. Somewhat of a poor historian. He is maintaining O2 saturations in the 90s on 6 L/min per nasal cannula. White count 8.5. Hemoglobin 14.9. Platelets 195. He is afebrile. Hemodynamically stable. He remains on DuoNeb inhalations, Symbicort. Antibiotics in the form of ceftriaxone and azithromycin. Anticoagulated with Eliquis. Doppler of the lower extremities were negative for DVT. CT angiogram ruled out pulmonary embolism. Moderate to advanced underlying change with left greater than right lower acute infiltrates and/or atelectasis. Objective - Vital Signs Vital signs: Vital Signs Temp 98.1 F 03/22/25 09:21 Pulse 96 03/22/25 11:57 Resp 18 03/22/25 11:57 BP 113/74 03/22/25 11:57 Pulse Ox 90 L 03/22/25 11:57 FiO2 - Exam GENERAL EXAM: Alert, weak, frail 84-year-old male, resting in bed, on 6 L nasal cannula, in no apparent distress. HEAD: Normocephalic. EYES: Normal reaction of pupils, equal size. NOSE: Clear with pink turbinates. THROAT: No erythema or exudates. Essentially edentulous NECK: No masses, no JVD. CHEST: No chest wall deformity. LUNGS: Equal air entry with few scattered rhonchi. Marked diminished breath sound bilateral especially lung bases along with bibasilar crackles CVS: S1 and S2 normal with no audible murmur, regular rhythm. ABDOMEN: No hepatosplenomegaly, normal bowel sounds, no guarding or rigidity. SPINE: No scoliosis or deformity SKIN: No rashes CENTRAL NERVOUS SYSTEM: No focal deficits, tone is normal in all 4 extremities. Generalized global weakness in all 4 extremities EXTREMITIES: There is no peripheral edema. No clubbing, no cyanosis. Peripheral pulses are intact. - Labs CBC & Chem 7: 03/22/25 06:00 03/22/25 06:00 Labs: Abnormal Lab Results - Last 24 Hours (Table) 03/21/25 03/22/25 03/22/25 Range/Units 11:30 06:00 06:00 MCHC 31.9 L (32.0-37.0) g/dL RDW 17.4 H (11.5-14.5) % Monocytes # 1.16 H (0.20-1.00) X 10*3/uL ESR 23 H (0-20) mm/Hr Anion Gap 13.70 H (4.00-12.00) mmol/L BUN 27.7 H (9.0-27.0) mg/dL Est GFR (CKD-EPI) 54 L (>=60) BUN/Creatinine Ratio 21.31 H (12.00-20.00) Ratio Alkaline Phosphatase 155 H (41-126) U/L Total Protein 5.8 L (6.2-8.2) g/dL Albumin 3.3 L (3.8-4.9) g/dL Albumin/Globulin Ratio 1.32 L (1.60-3.17) Ratio Assessment and Plan Assessment: Acute on chronic hypoxic respiratory failure currently on 6 L of oxygen by nasal cannula. Worsening interstitial infiltrates in lung base bilaterally. Rule out interstitial edema versus development of a pneumonia. This could be essentially hospital-acquired versus aspiration pneumonia. Failure to thrive in a patient with increasing generalized weakness, poor appetite and significant diminishment in oral intake. There may be also some difficulties in swallowing. The patient needs to be further investigated in this regard. Remeron was added during his last admission. The patient is not taking enough food to maintain his caloric requirements. History of CAD, with previous stenting. The patient is known to have triple- vessel disease and the patient was supposed to undergo bypass surgery, however he was not found to be an appropriate candidate. He was given stent to his LAD as the patient was found to have an 80% proximal LAD lesion. History of atrial flutterfibrillation and current rhythm is atrial fibrillation CHF, reduced LV function. The patient's Previous echocardiogram from 2021 showed an ejection fraction of 45 to 50% without any significant valve abnorm alities pulmonary hypertension. Acute kidney injury, mild, probably due to vascular depletion History of COPD, from previous tobacco use. Dementia History of recurrent unexplained syncope, could be cardiac History of hyperlipidemia. History of hypertension. Deafness. GERD. History of gout. Peripheral vascular disease Plan: The patient was seen and evaluated Imaging, labs and medications reviewed Swallow evaluation pending Continue ceftriaxone and azithromycin Continue DuoNeb inhalations Continue Symbicort Anticoagulated with Eliquis Titrate down the FiO2 as tolerated Poor overall prognosis We will continue to follow and make further recommendations based on his clinical status I have personally seen and examined the patient, performed the documentation and the assessment and plan as written. Number of minutes spent on the visit: 10 Dictation was produced using [employer] software. Please excuse any grammatical, word or spelling errors.
--- NOTE | 2025-03-22 13:20 | P.GSCN ---
History of Present Illness Consult date: 03/22/25 History of present illness: CHIEF COMPLAINT: Shortness of breath HISTORY OF PRESENT ILLNESS: This is a 84-year-old male who presented with shortness of breath. He had been recently hospitalized for pneumonia and had just been at [facility] for over the weekend. Patient became more short of breath and was brought back into the ER. There is concerns for possible aspiration pneumonia she is on antibiotics. Patient has been having dysphagia, failure to thrive and poor oral intake. He is scheduled for an MBS study today those results are pending. Patient's family is at bedside reports that patient has had intermittent vomiting since January. They have also noted weight loss. Patient does have a history of a moderate-sized hiatal hernia and they reported EGD with son several years ago. Denies any abdominal pain. Patient was able to eat applesauce and take his pills this morning. Last dose of Eliquis was this morning. He takes it for his atrial fibrillation. PAST MEDICAL HISTORY: Atrial Flutter, Coronary Artery Disease (CAD), Heart Failure, COPD, GERD/Reflux, Hearing Disorder / Deafness, Hyperlipidemia, Hypertension, Osteoarthritis (OA), Renal Disease, Vascular Disorder,hx. gout, hx. colon polyps, circulation problems in legs, slight decreased kidney function, shingles PAST SURGICAL HISTORY: Cholecystectomy, heart catheterization with stents MEDICATIONS: See below ALLERGIES: See below SOCIAL HISTORY: No illicit drug use. REVIEW OF SYSTEMS: CONSTITUTIONAL: Denies fever or chills. HEENT: Denies blurred vision, vision changes, or eye pain. Denies hemoptysis CARDIOVASCULAR: Denies chest pain or pressure. RESPIRATORY: No shortness of breath. GASTROINTESTINAL: See HPI for pertinent findings HEMATOLOGIC: Denies bleeding disorders. GENITOURINARY: Denies any blood in urine or increased urinary frequency. SKIN: Denies pruitis. Denies rash. PHYSICAL EXAM: VITAL SIGNS: Reviewed GENERAL: no acute distress. Malnourished HEENT: No sclera icterus. Extraocular movements grossly intact. Moist buccal mucosa. Head is atraumatic, normocephalic. No nasal drainage. ABDOMEN: Soft. Nondistended. Nondistended NEUROLOGIC: Awake. Lying in bed comfortably. LABORATORY DATA: WBC 8.56 Hgb 14.9 platelets 195 Sodium 138 potassium 4.6 creatinine 1.3 Lactic acid 1.5 Albumin 3.3 IMAGING: CTA no evidence of PE. Moderate to bands underlying change with left greater than right lung acute infiltrates and/or atelectasis. Moderate size hiatal hernia. ASSESSMENT: 1. Dysphagia, failure to thrive, poor oral intake 2. Moderate protein calorie malnutrition 3. Possible aspiration pneumonia 4. Recurrent vomiting PLAN: - Patient scheduled for PEG tube placement on Saturday with Dr. James - Awaiting modified barium swallow results - Eliquis placed on hold for possible PEG tube placement Physician Commercial Producer note has been reviewed by physician. Signing provider agrees with the documented findings, assessment, and plan of care. Past Medical History Past Medical History: Atrial Flutter, Coronary Artery Disease (CAD), Heart Failure, COPD, GERD/Reflux, Hearing Disorder / Deafness, Hyperlipidemia, Hypertension, Osteoarthritis (OA), Renal Disease, Vascular Disorder Additional Past Medical History / Comment(s): hx. gout, hx. colon polyps, circulation problems in legs, slight decreased kidney function, shingles History of Any Multi-Drug Resistant Organisms: MRSA Year Discovered:: 02/14/22 MDRO Source:: Right Thigh Past Surgical History: Cholecystectomy, Heart Catheterization, Heart Catheterization With Stent Additional Past Surgical History / Comment(s): right bone graft to collar bone Past Anesthesia/Blood Transfusion Reactions: No Reported Reaction Date of Last Stent Placement:: 05/2020 Past Psychological History: No Psychological Hx Reported Smoking Status: Former smoker Past Alcohol Use History: None Reported Additional Past Alcohol Use History / Comment(s): quit smoking 2014, smoked 1ppd- 2PPD STARTED SMOKING AT AGE 14 Past Drug Use History: None Reported - Past Family History Mother Family Medical History: No Reported History Medications and Allergies Home Medications Medication Instructions Recorded Confirmed Type Atorvastatin [Lipitor] 20 mg PO HS 10/17/18 03/21/25 History Apixaban [Eliquis] 2.5 mg PO BID@0800,1700 06/05/20 03/21/25 History Cetirizine HCl [Zyrtec] 10 mg PO DAILY PRN 06/10/23 03/21/25 History Colchicine 0.6 mg PO BID@0800,1700 06/10/23 03/21/25 History Metoprolol Succinate (ER) [Toprol 12.5 mg PO DAILY@0800 06/10/23 03/21/25 History XL] allopurinoL 100 mg PO DAILY@0800 06/10/23 03/21/25 History Acetaminophen [Tylenol Arthritis] 650 mg PO Q4H PRN 03/11/25 03/21/25 History Fluticasone Propion/Salmeterol 2 puff INHALATION RT-DAILY 03/11/25 03/21/25 History [Wixela 500-50 Inhub] Ipratropium-Albuterol Nebulize 3 ml INHALATION RT-QID PRN 03/11/25 03/21/25 History [Duoneb 0.5 mg-3 mg/3 ml Soln] Loperamide HCl [Imodium A-D] 2 mg PO Q2H PRN 03/11/25 03/21/25 History Multivit-Min/FA/Lycopen/Lutein 1 tab PO HS 03/11/25 03/21/25 History [Centrum Silver Tablet] Omeprazole 20 mg PO DAILY@0600 03/11/25 03/21/25 History Ondansetron [Zofran] 4 mg PO Q6H PRN 03/11/25 03/21/25 History Vitamin B Complex 1 cap PO HS 03/11/25 03/21/25 History buPROPion XL [Wellbutrin XL] 300 mg PO DAILY@0800 03/11/25 03/21/25 History Mirtazapine [Remeron] 15 mg PO HS tab 03/19/25 03/21/25 Rx Ipratropium-Albuterol Nebulize 3 ml INHALATION DIRECTED PRN 03/21/25 03/21/25 History [Duoneb 0.5 mg-3 mg/3 ml Soln] Magnesium Hydroxide [Milk of 7,200 mg PO Q48H PRN 03/21/25 03/21/25 History Magnesia Concentrate] Na Phos,M-B/Na Phos,Di-Ba [Fleet 133 ml RECTAL DAILY PRN 03/21/25 03/21/25 History Adult] bisacodyL [Dulcolax] 10 mg RECTAL DAILY PRN 03/21/25 03/21/25 History guaiFENesin SYRUP 100MG/5ML 200 mg PO Q4H PRN 03/21/25 03/21/25 History [Robitussin] Allergies Allergy/AdvReac Type Severity Reaction Status Date / Time codeine Allergy Unknown Verified 03/21/25 10:53 Penicillins Allergy Anaphylaxis Verified 03/21/25 10:53 Iodinated Contrast Media AdvReac Diarrhea, Verified 03/21/25 10:53 [Iodinated Contrast- Oral RASH and IV Dye] Surgical - Exam Vital Signs Temp Pulse Resp BP Pulse Ox 98.9 F 113 H 24 129/91 92 L 03/21/25 06:50 03/21/25 06:50 03/21/25 06:50 03/21/25 06:50 03/21/25 06:50 Results - Labs 03/22/25 06:00 03/22/25 06:00 Abnormal Lab Results - Last 24 Hours (Table) 03/21/25 03/22/25 03/22/25 Range/Units 11:30 06:00 06:00 MCHC 31.9 L (32.0-37.0) g/dL RDW 17.4 H (11.5-14.5) % Monocytes # 1.16 H (0.20-1.00) X 10*3/uL ESR 23 H (0-20) mm/Hr Anion Gap 13.70 H (4.00-12.00) mmol/L BUN 27.7 H (9.0-27.0) mg/dL Est GFR (CKD-EPI) 54 L (>=60) BUN/Creatinine Ratio 21.31 H (12.00-20.00) Ratio Alkaline Phosphatase 155 H (41-126) U/L Total Protein 5.8 L (6.2-8.2) g/dL Albumin 3.3 L (3.8-4.9) g/dL Albumin/Globulin Ratio 1.32 L (1.60-3.17) Ratio Diabetes panel 03/22/25 Range/Units 06:00 Sodium 138 (135-145) mmol/L Potassium 4.6 (3.5-5.5) mmol/L Chloride 102 (96-109) mmol/L Carbon Dioxide 22.3 (21.6-31.8) mmol/L BUN 27.7 H (9.0-27.0) mg/dL Creatinine 1.3 (0.6-1.5) mg/dL Glucose 76 (70-110) mg/dL Calcium 9.4 (8.7-10.3) mg/dL AST 29 (14-35) U/L ALT 48 (10-49) U/L Alkaline Phosphatase 155 H (41-126) U/L Total Protein 5.8 L (6.2-8.2) g/dL Albumin 3.3 L (3.8-4.9) g/dL Calcium panel 03/22/25 Range/Units 06:00 Calcium 9.4 (8.7-10.3) mg/dL Albumin 3.3 L (3.8-4.9) g/dL Pituitary panel 03/22/25 Range/Units 06:00 Sodium 138 (135-145) mmol/L Potassium 4.6 (3.5-5.5) mmol/L Chloride 102 (96-109) mmol/L Carbon Dioxide 22.3 (21.6-31.8) mmol/L BUN 27.7 H (9.0-27.0) mg/dL Creatinine 1.3 (0.6-1.5) mg/dL Glucose 76 (70-110) mg/dL Calcium 9.4 (8.7-10.3) mg/dL Adrenal panel 03/22/25 Range/Units 06:00 Sodium 138 (135-145) mmol/L Potassium 4.6 (3.5-5.5) mmol/L Chloride 102 (96-109) mmol/L Carbon Dioxide 22.3 (21.6-31.8) mmol/L BUN 27.7 H (9.0-27.0) mg/dL Creatinine 1.3 (0.6-1.5) mg/dL Glucose 76 (70-110) mg/dL Calcium 9.4 (8.7-10.3) mg/dL Total Bilirubin 0.5 (0.3-1.2) mg/dL AST 29 (14-35) U/L ALT 48 (10-49) U/L Alkaline Phosphatase 155 H (41-126) U/L Total Protein 5.8 L (6.2-8.2) g/dL Albumin 3.3 L (3.8-4.9) g/dL
--- NOTE | 2025-03-23 07:18 | P.CONS ---
History of Present Illness - Reason for Consult Consult date: 03/22/25 Bacterial pneumonia Requesting physician: Kan Sung - Chief Complaint Shortness of breath and cough x days - History of Present Illness Patient is a 84-year-old male with a past medical history significant for hypertension hyperlipidemia COPD heart failure coronary artery disease has been [facility] the [facility] because of increasing shortness of breath and increasing O2 requirement/hypoxemia patient did have a productive cough nausea and vomiting however no abdominal pain and no diarrhea with the symptoms the patient has been evaluated on presentation to the hospital the patient was afebrile no fever have been recorded subsequently patient was tachycardic but not hypotensive hypoxic currently on 6 L nasal cannula oxygen he did have a white count of 9.47 BUN and creatinine mildly elevated electrolytes are normal, ALT mildly elevated influenza RSV COVID testing negative blood cultures obtained which are currently pending did have a chest x-ray mild diffuse interstitial opacity concerning for chronic interstitial changes versus CHF also have a CT angiogram of the chest moderate size hiatal hernia no evidence for PE consolidation atelectasis in the right lower lobe patient has been started on Rocephin and Zithromax infectious he was consulted regarding bacterial pneumonia Review of Systems Positive point and negatives has been mentioned in the HPI, complete review of systems was performed and all other systems are negative Past Medical History Past Medical History: Atrial Flutter, Coronary Artery Disease (CAD), Heart Failure, COPD, GERD/Reflux, Hearing Disorder / Deafness, Hyperlipidemia, Hypertension, Osteoarthritis (OA), Renal Disease, Vascular Disorder Additional Past Medical History / Comment(s): hx. gout, hx. colon polyps, circulation problems in legs, slight decreased kidney function, shingles History of Any Multi-Drug Resistant Organisms: MRSA Year Discovered:: 02/14/22 MDRO Source:: Right Thigh Past Surgical History: Cholecystectomy, Heart Catheterization, Heart Catheterization With Stent Additional Past Surgical History / Comment(s): right bone graft to collar bone Past Anesthesia/Blood Transfusion Reactions: No Reported Reaction Date of Last Stent Placement:: 05/2020 Past Psychological History: No Psychological Hx Reported Smoking Status: Former smoker Past Alcohol Use History: None Reported Additional Past Alcohol Use History / Comment(s): quit smoking 2014, smoked 1ppd- 2PPD STARTED SMOKING AT AGE 14 Past Drug Use History: None Reported - Past Family History Mother Family Medical History: No Reported History Medications and Allergies Home Medications Medication Instructions Recorded Confirmed Type Atorvastatin [Lipitor] 20 mg PO HS 10/17/18 03/21/25 History Apixaban [Eliquis] 2.5 mg PO BID@0800,1700 06/05/20 03/21/25 History Cetirizine HCl [Zyrtec] 10 mg PO DAILY PRN 06/10/23 03/21/25 History Colchicine 0.6 mg PO BID@0800,1700 06/10/23 03/21/25 History Metoprolol Succinate (ER) [Toprol 12.5 mg PO DAILY@0800 06/10/23 03/21/25 History XL] allopurinoL 100 mg PO DAILY@0800 06/10/23 03/21/25 History Acetaminophen [Tylenol Arthritis] 650 mg PO Q4H PRN 03/11/25 03/21/25 History Fluticasone Propion/Salmeterol 2 puff INHALATION RT-DAILY 03/11/25 03/21/25 History [Wixela 500-50 Inhub] Ipratropium-Albuterol Nebulize 3 ml INHALATION RT-QID PRN 03/11/25 03/21/25 History [Duoneb 0.5 mg-3 mg/3 ml Soln] Loperamide HCl [Imodium A-D] 2 mg PO Q2H PRN 03/11/25 03/21/25 History Multivit-Min/FA/Lycopen/Lutein 1 tab PO HS 03/11/25 03/21/25 History [Centrum Silver Tablet] Omeprazole 20 mg PO DAILY@0600 03/11/25 03/21/25 History Ondansetron [Zofran] 4 mg PO Q6H PRN 03/11/25 03/21/25 History Vitamin B Complex 1 cap PO HS 03/11/25 03/21/25 History buPROPion XL [Wellbutrin XL] 300 mg PO DAILY@0800 03/11/25 03/21/25 History Mirtazapine [Remeron] 15 mg PO HS tab 03/19/25 03/21/25 Rx Ipratropium-Albuterol Nebulize 3 ml INHALATION DIRECTED PRN 03/21/25 03/21/25 History [Duoneb 0.5 mg-3 mg/3 ml Soln] Magnesium Hydroxide [Milk of 7,200 mg PO Q48H PRN 03/21/25 03/21/25 History Magnesia Concentrate] Na Phos,M-B/Na Phos,Di-Ba [Fleet 133 ml RECTAL DAILY PRN 03/21/25 03/21/25 History Adult] bisacodyL [Dulcolax] 10 mg RECTAL DAILY PRN 03/21/25 03/21/25 History guaiFENesin SYRUP 100MG/5ML 200 mg PO Q4H PRN 03/21/25 03/21/25 History [Robitussin] Allergies Allergy/AdvReac Type Severity Reaction Status Date / Time codeine Allergy Unknown Verified 03/21/25 10:53 Penicillins Allergy Anaphylaxis Verified 03/21/25 10:53 Iodinated Contrast Media AdvReac Diarrhea, Verified 03/21/25 10:53 [Iodinated Contrast- Oral RASH and IV Dye] Physical Exam Vitals: Vital Signs Temp Pulse Resp BP Pulse Ox 03/22/25 10:44 92 16 111/90 94 L 03/22/25 10:26 96 18 129/96 93 L 03/22/25 09:35 98 16 100/75 93 L 03/22/25 09:21 98.1 F 101 H 18 90/55 87 L 03/22/25 08:24 99 18 03/22/25 08:12 99 20 94 L 03/22/25 07:20 98 16 03/22/25 06:31 96 19 104/84 93 L 03/22/25 05:10 98.4 F 106 H 20 87/60 95 03/22/25 04:00 99 18 103/73 93 L 03/22/25 02:30 105 H 21 101/70 93 L 03/22/25 01:00 101 H 18 108/88 97 03/21/25 22:15 112 H 19 107/87 91 L 03/21/25 19:57 106 H 20 105/68 92 L 03/21/25 18:54 102 H 22 03/21/25 18:46 104 H 22 03/21/25 17:58 103 H 19 102/71 92 L 03/21/25 17:16 105 H 18 93/64 95 03/21/25 17:01 105 H 16 101/78 92 L 03/21/25 16:22 106 H 20 105/68 93 L 03/21/25 16:00 107 H 20 98/69 93 L 03/21/25 15:45 107 H 89/65 93 L 03/21/25 15:33 106 H 19 96/69 93 L 03/21/25 15:22 106 H 22 03/21/25 15:15 99.4 F 106 H 19 101/69 93 L 03/21/25 15:14 103 H 20 93 L 03/21/25 14:45 105 H 16 102/71 93 L 03/21/25 14:17 107 H 18 94/71 94 L 03/21/25 13:04 105 H 18 87/65 93 L 03/21/25 12:06 107 H 16 102/70 93 L GENERAL DESCRIPTION: Elderly male lying in bed, no distress. No tachypnea or acc essory muscle of respiration use. HEENT: Shows Pallor , no scleral icterus. Oral mucous membrane is dry. NECK: Trachea central, no thyromegaly. LUNGS: Unlabored breathing. Decreased breath sound at the base. HEART: S1, S2, regular rate and rhythm. ABDOMEN: Soft, no tenderness , guarding or rigidity, no organomegaly EXTREMITIES: No edema of feet. SKIN: No rash, no masses palpable. NEUROLOGICAL: The patient is awake, mood and affect normal. Results CBC & Chem 7: 03/22/25 06:00 03/22/25 06:00 Labs: Abnormal Lab Results - Last 24 Hours (Table) 03/21/25 03/21/25 03/21/25 Range/Units 11:30 11:30 11:30 MCHC (32.0-37.0) g/dL RDW (11.5-14.5) % Monocytes # (0.20-1.00) X 10*3/uL ESR 23 H (0-20) mm/Hr D-Dimer 0.90 H (<0.60) mg/L FEU Anion Gap (4.00-12.00) mmol/L BUN (9.0-27.0) mg/dL Est GFR (CKD-EPI) (>=60) BUN/Creatinine Ratio (12.00-20.00) Ratio Alkaline Phosphatase (41-126) U/L C-Reactive Protein 4.0 H (<1.0) mg/dL Total Protein (6.2-8.2) g/dL Albumin (3.8-4.9) g/dL Albumin/Globulin Ratio (1.60-3.17) Ratio 03/22/25 03/22/25 Range/Units 06:00 06:00 MCHC 31.9 L (32.0-37.0) g/dL RDW 17.4 H (11.5-14.5) % Monocytes # 1.16 H (0.20-1.00) X 10*3/uL ESR (0-20) mm/Hr D-Dimer (<0.60) mg/L FEU Anion Gap 13.70 H (4.00-12.00) mmol/L BUN 27.7 H (9.0-27.0) mg/dL Est GFR (CKD-EPI) 54 L (>=60) BUN/Creatinine Ratio 21.31 H (12.00-20.00) Ratio Alkaline Phosphatase 155 H (41-126) U/L C-Reactive Protein (<1.0) mg/dL Total Protein 5.8 L (6.2-8.2) g/dL Albumin 3.3 L (3.8-4.9) g/dL Albumin/Globulin Ratio 1.32 L (1.60-3.17) Ratio Assessment and Plan (1) Penicillin allergy Current Visit: Yes Status: Acute Code(s): Z88.0 - ALLERGY STATUS TO PENICILLIN SNOMED Code(s): 28867814 (2) Pneumonia Current Visit: Yes Status: Acute Code(s): J18.9 - PNEUMONIA, UNSPECIFIED ORGANISM SNOMED Code(s): 974841985 Plan: 1patient presented to hospital with increasing shortness of breath and cough in this patient with evidence of consolidative changes right lower lobe large hiatal hernia with concern for possible aspiration 2penicillin allergies that will limit number of antibiotic safe to use 3will try to obtain a sputum for Gram stain and culture and aspiration precaution 4for now continue with Rocephin and Zithromax while waiting for the workup to be completed We will follow on clinical condition and cultures to further adjust medication if needed Thank you for this consultation we will follow the patient along with you Dictation was produced using [employer] dictation software. please excuse any grammatical, word or spelling errors. Time with Patient: Greater than 30
[2025-03-23 08:01] LABS: Basophils # (A) 0.02 X 10*3/uL (0.00-0.10); Basophils % (A) 0.3 %; Eosinophils # (A) 0.25 X 10*3/uL (0.04-0.35); Eosinophils % (A) 4.1 %; HCT 46.8 % (39.6-50.0); HGB 14.4 g/dL (13.0-17.0); Lymphocytes # (A) 0.77 X 10*3/uL (0.90-5.00); Lymphocytes % (A) 12.6 %; MCH 29.4 pg (27.0-32.0); MCHC 30.8 g/dL (32.0-37.0); MCV 95.5 FL (80.0-97.0); Mean Platelet Volume 11.6 FL (9.5-12.2); Monocytes # (A) 0.25 X 10*3/uL (0.20-1.00); Monocytes % (A) 4.1 %; NRBC Per 100 WBC 0 X 10*3/uL (0.00-0.01); Neutrophils # (A) 4.82 X 10*3/uL (1.80-7.70); Neutrophils % (A) 78.6 %; Platelet Count 174 X 10*3/uL (140-440); RDW 17.2 % (11.5-14.5); WBC 6.13 X 10*3/uL (4.50-10.00)
[2025-03-23 08:52] LABS: ALT 42 U/L (10-49); AST 29 U/L (14-35); Albumin 3.2 g/dL (3.8-4.9); Albumin/Globulin Ratio 1.28 Ratio (1.60-3.17); Alkaline Phosphatase 145 U/L (41-126); BUN/Creat Ratio 25.83 Ratio (12.00-20.00); Calcium 9.9 mg/dL (8.7-10.3); Carbon Dioxide 24.2 mmol/L (21.6-31.8); Chloride 105 mmol/L (96-109); Globulin 2.5 g/dL (1.6-3.3); Glucose 128 mg/dL (70-110); Potassium 5.2 mmol/L (3.5-5.5); Sodium 141 mmol/L (135-145); Total Bilirubin 0.3 mg/dL (0.3-1.2); Total Protein 5.7 g/dL (6.2-8.2)
--- NOTE | 2025-03-23 12:00 | P.PN ---
Subjective Progress Note Date: 03/23/25 Patient is a 84-year-old male with a history of CAD, A-fib, COPD, GERD, hyperlipidemia, hypertension, presented to the ER from long-term for shortness of breath. Patient was only recently discharged from the hospital. According to daughter who was at the bedside patient has been having worsening shortness of breath for the last day, patient also having cough which was productive.. Patient also started having nausea and vomiting. There was no complaint abdominal pain. There was no complaint of altered bowel movements. There is no complaint of any chest pain. Nursing staff at the facility noticed that the patient was requiring more oxygen and decided to send him to the ER Initial lab work done in the ER showed WBC 9.47, hemoglobin 17.4, platelet count 221, sodium 138, potassium 5.1, BUN 20, creatinine 1.28, glucose 101, AST 44, ALT 70 troponin 0.012 EKG done in the ER showed heart rate of115 , no ST segment elevation or depression seen, no T-wave inversions seen. Chest x-ray done in the ER diffuse interstitial opacity consistent with chronic interstitial changes versus mild CHF Patient admitted to internal medicine service 03/22. Patient seen and examined. Patient is lethargic, unable to swallow meds, swallow study ordered for today. Pulmonology had discussed with patient family, at this time they are open to PEG tube placement. Lab review showed WBC 8.5, hemoglobin 14.9, platelet count 195, D-dimer was elevated 0.9. Will order CT angio chest, patient be premedicated with contrast allergy prophylaxis 03/23. Patient seen and examined. Labs reviewed WBCs, 3, hemoglobin 14.4, platelet count 174, sodium 141, potassium 5.2, BUN 31, creatinine 1.2 CT chest PE protocol done showed no evidence of PE, showed moderate to advancing underlying changes of the left greater than right lower lobe infiltrates. Patient is more awake compared to yesterday, sitting upright in the bed REVIEW OF SYSTEMS: Denies any chest pain. Denies shortness of breath. Denies any nausea or vomiting PHYSICAL EXAMINATION: GENERAL: The patient is lethargic HEENT: Pupils are round and equally reacting to light. EOMI. No scleral icterus. No conjunctival pallor. Normocephalic, atraumatic. No pharyngeal erythema. No thyromegaly. CARDIOVASCULAR: S1 and S2 present. No murmurs, rubs, or gallops. PULMONARY: Coarse breath sound bilaterally ABDOMEN: Soft, nontender, nondistended, normoactive bowel sounds. No palpable organomegaly. MUSCULOSKELETAL: No joint swelling or deformity. EXTREMITIES: No cyanosis, clubbing, or pedal edema. NEUROLOGICAL: Gross neurological examination did not reveal any focal deficits. SKIN: No rashes. Assessment and plan Acute on chronic hypoxic respiratory failure Bacterial pneumonia Generalized weakness Moderate to severe protein caloric malnutrition History of dementia Transaminitis Chronic obstructive pulmonary disease History of previous chronic tobacco dependence Coronary artery disease with previous stent placement History of atrial flutter, anticoagulated with Eliquis History of congestive heart failure Hypertension hyperlipidemia Hearing disorder History of gout Monitor vital signs Monitor CBC Monitor CMP Continue telemetry monitoring Follow-up on blood cultures Follow-up on sputum culture Continue IV Rocephin azithromycin Continue breathing treatments Consulted surgery for PEG tube placement, scheduled for Saturday Follow-up on pulmonology recommendation Follow-up on ID recommendations Labs and medication were reviewed.. Continue same treatment. Continue with symptomatic treatment. Resume home medication. Monitor labs and vitals. DVT and GI prophylaxis. Further recommendations as per clinical course of the patient Dictation was produced using [employer] dictation software. please excuse any grammatical, word or spelling errors. Objective - Vital Signs Vital signs: Vital Signs Temp 97.3 F L 03/23/25 00:40 Pulse 64 03/23/25 09:15 Resp 18 03/23/25 08:00 BP 117/76 03/23/25 08:00 Pulse Ox 93 L 03/23/25 09:04 FiO2 Intake & Output 03/22/25 03/23/25 03/23/25 18:59 06:59 18:59 Output Total 250 Balance -250 Weight 72.575 kg Output: Urine 250 Other: # Voids 2 - Labs CBC & Chem 7: 03/23/25 03:00 03/23/25 03:00 Labs: Abnormal Lab Results - Last 24 Hours (Table) 03/23/25 03/23/25 Range/Units 03:00 03:00 MCHC 30.8 L (32.0-37.0) g/dL RDW 17.2 H (11.5-14.5) % Lymphocytes # 0.77 L (0.90-5.00) X 10*3/uL BUN 31.0 H (9.0-27.0) mg/dL Est GFR (CKD-EPI) 59 L (>=60) BUN/Creatinine Ratio 25.83 H (12.00-20.00) Ratio Glucose 128 H (70-110) mg/dL Alkaline Phosphatase 145 H (41-126) U/L Total Protein 5.7 L (6.2-8.2) g/dL Albumin 3.2 L (3.8-4.9) g/dL Albumin/Globulin Ratio 1.28 L (1.60-3.17) Ratio Microbiology - Last 24 Hours (Table) 03/21/25 09:08 Blood Culture - Preliminary Blood
--- NOTE | 2025-03-23 14:07 | P.PN ---
Subjective Progress Note Date: 03/23/25 SURGICAL PROGRESS NOTE CHIEF COMPLAINT: Pneumonia HISTORY OF PRESENT ILLNESS: Patient sitting up in bed comfortably. Oral intake is decreased. Patient had MBS completed with speech therapy. Her chart does report risk for aspiration event, and recommend strict aspiration precautions with a pured diet. Afebrile. On 5 L oxygen. PHYSICAL EXAM: VITAL SIGNS: Reviewed. GENERAL: Malnourished. No acute distress. ABDOMEN: Soft. Nondistended. Nontender. NEUROLOGIC: Awake and alert ASSESSMENT: 1. Dysphagia, failure to thrive, poor oral intake 2. Moderate protein calorie malnutrition 3. Possible aspiration pneumonia 4. Recurrent vomiting PLAN: - Patient is scheduled for PEG tube placement tomorrow with Dr. James - N.p.oUri after midnight - Eliquis on hold Physician Unemployment Inspector note has been reviewed by physician. Signing provider agrees with the documented findings, assessment, and plan of care. Objective - Vital Signs Vital signs: Vital Signs Temp 97.3 F L 03/23/25 00:40 Pulse 80 03/23/25 13:16 Resp 18 03/23/25 08:00 BP 117/76 03/23/25 08:00 Pulse Ox 94 L 03/23/25 13:18 FiO2 Intake & Output 03/22/25 03/23/25 03/23/25 18:59 06:59 18:59 Output Total 250 Balance -250 Weight 72.575 kg Output: Urine 250 Other: # Voids 2 - Labs CBC & Chem 7: 03/23/25 03:00 03/23/25 03:00 Labs: Abnormal Lab Results - Last 24 Hours (Table) 03/23/25 03/23/25 Range/Units 03:00 03:00 MCHC 30.8 L (32.0-37.0) g/dL RDW 17.2 H (11.5-14.5) % Lymphocytes # 0.77 L (0.90-5.00) X 10*3/uL BUN 31.0 H (9.0-27.0) mg/dL Est GFR (CKD-EPI) 59 L (>=60) BUN/Creatinine Ratio 25.83 H (12.00-20.00) Ratio Glucose 128 H (70-110) mg/dL Alkaline Phosphatase 145 H (41-126) U/L Total Protein 5.7 L (6.2-8.2) g/dL Albumin 3.2 L (3.8-4.9) g/dL Albumin/Globulin Ratio 1.28 L (1.60-3.17) Ratio Microbiology - Last 24 Hours (Table) 03/21/25 09:08 Blood Culture - Preliminary Blood
--- NOTE | 2025-03-23 14:25 | P.PN ---
Subjective Progress Note Date: 03/23/25 This is a 84-year-old male patient was brought back within 24 hours after being discharged to the [facility] for worsening shortness of breath, increased weakness, increased lethargy and generalized weakness and debility. Noted, during his last hospitalization, the patient's oral intake has been essentially minimal and he was failing to thrive. Based on that, the patient was given Remeron at the time of discharge. While in the [facility], he was noted to have increased cough and congestion worsening shortness of breath and for that reason the patient was brought in to the emergency department. Family is at the bedside. He is awake and alert. He is a poor historian. No reported aspiratio n. He has ongoing moderate to severe protein calorie malnutrition and dementia. Comorbidities are multiple. In the emergency, the patient was second was at 9.4 with a hemoglobin of 17.4 and a platelet count of 221. BUN is 20 with a creatinine of 1.28 and a sodium levels of 138 and a potassium level of 5.1. Glucose was 101. LFTs are normal. Troponins are negative. EKG showed no acute ST segment elevation or depression. Chest x-ray showed increased interstitial opacities in lung base bila terally.Based on all this, the patient was hospitalized the D-dimer was at 0.9. Blood gas was done emergency that showed a pH of 7.44 with a [id number] and pO2 of 59 in the patient's blood gas was done FiO2 36%. The viral screen was negative. proBNP level was 1420. The patient has generalized global weakness. No focal neurological deficits. He follows simple commands. The patient is seen today March 22, 2025 in follow-up in the emergency department. He is currently resting on a stretcher. Awake and alert in no acute distress. Somewhat of a poor historian. He is maintaining O2 saturations in the 90s on 6 L/min per nasal cannula. White count 8.5. Hemoglobin 14.9. Platelets 195. He is afebrile. Hemodynamically stable. He remains on DuoNeb inhalations, Symbicort. Antibiotics in the form of ceftriaxone and azithromycin. Anticoagulated with Eliquis. Doppler of the lower extremities were negative for DVT. CT angiogram ruled out pulmonary embolism. Moderate to advanced underlying change with left greater than right lower acute infiltrates and/or atelectasis. The patient is seen today March 23, 2025 in follow-up on the regular medical floor. He is currently resting in bed. Awake and alert in no acute distress. He is quite weak and frail. He is continued on DuoNeb inhalations, Symbicort, ceftriaxone and azithromycin. White count 6.1. Hemoglobin 14.4. Platelets 174. Sodium 141. Potassium 5.2. Bicarb 24. BUN 31. Creatinine 1.2. Glucose 128. Procalcitonin was negative at 0.20. Plan is for PEG tube placement tomorrow to avoid continued aspirations. Eliquis on hold. Objective - Vital Signs Vital signs: Vital Signs Temp 97.3 F L 03/23/25 00:40 Pulse 70 03/23/25 14:00 Resp 18 03/23/25 14:00 BP 100/62 03/23/25 14:00 Pulse Ox 95 03/23/25 14:00 FiO2 Intake & Output 03/22/25 03/23/25 03/23/25 18:59 06:59 18:59 Output Total 250 Balance -250 Weight 72.575 kg Output: Urine 250 Other: # Voids 2 - Exam GENERAL EXAM: Alert, frail 84-year-old male, on 6 L nasal cannula, in no apparent distress. HEAD: Normocephalic. EYES: Normal reaction of pupils, equal size. NOSE: Clear with pink turbinates. THROAT: No erythema or exudates. Essentially edentulous NECK: No masses, no JVD. CHEST: No chest wall deformity. LUNGS: Equal air entry with few scattered rhonchi. Marked diminished breath so und bilaterally. CVS: S1 and S2 normal with no audible murmur, regular rhythm. ABDOMEN: No hepatosplenomegaly, normal bowel sounds, no guarding or rigidity. SPINE: No scoliosis or deformity SKIN: No rashes CENTRAL NERVOUS SYSTEM: No focal deficits, tone is normal in all 4 extremities. Generalized global weakness in all 4 extremities EXTREMITIES: There is no peripheral edema. No clubbing, no cyanosis. Peripheral pulses are intact. - Labs CBC & Chem 7: 03/23/25 03:00 03/23/25 03:00 Labs: Abnormal Lab Results - Last 24 Hours (Table) 03/23/25 03/23/25 Range/Units 03:00 03:00 MCHC 30.8 L (32.0-37.0) g/dL RDW 17.2 H (11.5-14.5) % Lymphocytes # 0.77 L (0.90-5.00) X 10*3/uL BUN 31.0 H (9.0-27.0) mg/dL Est GFR (CKD-EPI) 59 L (>=60) BUN/Creatinine Ratio 25.83 H (12.00-20.00) Ratio Glucose 128 H (70-110) mg/dL Alkaline Phosphatase 145 H (41-126) U/L Total Protein 5.7 L (6.2-8.2) g/dL Albumin 3.2 L (3.8-4.9) g/dL Albumin/Globulin Ratio 1.28 L (1.60-3.17) Ratio Microbiology - Last 24 Hours (Table) 03/21/25 09:08 Blood Culture - Preliminary Blood Assessment and Plan Assessment: Acute on chronic hypoxic respiratory failure currently on 6 L of oxygen by nasal cannula. Worsening interstitial infiltrates in lung base bilaterally. Rule out interstitial edema versus development of a pneumonia. This could be essentially hospital-acquired versus aspiration pneumonia. Failure to thrive in a patient with increasing generalized weakness, poor appetite and significant diminishment in oral intake. There may be also some difficulties in swallowing. The patient needs to be further investigated in this regard. Remeron was added during his last admission. The patient is not taking enough food to maintain his caloric requirements. History of CAD, with previous stenting. The patient is known to have triple- vessel disease and the patient was supposed to undergo bypass surgery, however he was not found to be an appropriate candidate. He was given stent to his LAD as the patient was found to have an 80% proximal LAD lesion. History of atrial flutterfibrillation and current rhythm is atrial fibrillation CHF, reduced LV function. The patient's Previous echocardiogram from 2021 showed an ejection fraction of 45 to 50% without any significant valve abnor malities pulmonary hypertension. Acute kidney injury, mild, probably due to vascular depletion History of COPD, from previous tobacco use. Dementia History of recurrent unexplained syncope, could be cardiac History of hyperlipidemia. History of hypertension. Deafness. GERD. History of gout. Peripheral vascular disease Plan: The patient was seen and evaluated Labs and medications reviewed Plan is for PEG tube placement tomorrow Eliquis on hold Continue ceftriaxone and azithromycin Continue DuoNeb inhalations Continue Symbicort Titrate down the FiO2 as tolerated Plan will be to return to [facility] at discharge I have personally seen and examined the patient, performed the documentation and the assessment and plan as written. Number of minutes spent on the visit: 10 Dictation was produced using [employer] dictation software. Please excuse any grammatical, word or spelling errors.
[2025-03-23] MEDS ORDERED: COLCHICINE 0.6 MG EACH PO PRN (14:50)
[2025-03-23] MEDS: ONDANSETRON 4 MG/2 ML VIAL IVP PRN (14:54)
--- NOTE | 2025-03-23 15:56 | P.PN ---
Subjective Progress Note Date: 03/23/25 Principal diagnosis: Reason for follow-up is pneumonia Patient is a 84-year-old male with a past medical history significant for hypertension hyperlipidemia COPD heart failure coronary artery disease has been brought into the hospital from a local [facility] because of increasing shortness of breath and increasing O2 requirement, CT did shows evidence of moderate antral hernia right lower lobe infiltrate concerning for pneumonia. On today's evaluation that is 03/23/2025, Patient is afebrile patient is currently on 6 L nasal oxygen seem to be breathing comfortably patient slightly more awake today not a very good historian and no vomiting or diarrhea has been reported. Patient did have a white count of 6.13, creatinine is 1.2 Objective - Vital Signs Vital signs: Vital Signs Temp 97.3 F L 03/23/25 00:40 Pulse 70 03/23/25 14:00 Resp 18 03/23/25 14:00 BP 100/62 03/23/25 14:00 Pulse Ox 95 03/23/25 14:00 FiO2 Intake & Output 03/22/25 03/23/25 03/23/25 18:59 06:59 18:59 Output Total 250 Balance -250 Weight 72.575 kg Output: Urine 250 Other: # Voids 2 - Exam GENERAL DESCRIPTION: An elderly male lying in bed in no distress RESPIRATORY SYSTEM: Unlabored breathing , decreased breath sounds at bases HEART: S1 S2 regular rate and rhythm , ABDOMEN: Soft , no tenderness EXTREMITIES: No edema feet - Labs CBC & Chem 7: 03/23/25 03:00 03/23/25 03:00 Labs: Abnormal Lab Results - Last 24 Hours (Table) 03/23/25 03/23/25 Range/Units 03:00 03:00 MCHC 30.8 L (32.0-37.0) g/dL RDW 17.2 H (11.5-14.5) % Lymphocytes # 0.77 L (0.90-5.00) X 10*3/uL BUN 31.0 H (9.0-27.0) mg/dL Est GFR (CKD-EPI) 59 L (>=60) BUN/Creatinine Ratio 25.83 H (12.00-20.00) Ratio Glucose 128 H (70-110) mg/dL Alkaline Phosphatase 145 H (41-126) U/L Total Protein 5.7 L (6.2-8.2) g/dL Albumin 3.2 L (3.8-4.9) g/dL Albumin/Globulin Ratio 1.28 L (1.60-3.17) Ratio Microbiology - Last 24 Hours (Table) 03/21/25 09:08 Blood Culture - Preliminary Blood Assessment and Plan (1) Penicillin allergy Current Visit: Yes Status: Acute Code(s): Z88.0 - ALLERGY STATUS TO PENICILLIN SNOMED Code(s): 76429546 (2) Pneumonia Current Visit: Yes Status: Acute Code(s): J18.9 - PNEUMONIA, UNSPECIFIED ORGANISM SNOMED Code(s): 266276605 Plan: 1patient presented to hospital with increasing shortness of breath and cough in this patient with evidence of consolidative changes right lower lobe large hiatal hernia with concern for possible aspiration 2penicillin allergies that will limit number of antibiotic safe to use 3will try to obtain a sputum for Gram stain and culture and aspiration precaution 4patient seem to have shown some clinical improvement to continue with Rocephin and Zithromax while waiting for the workup to be completed Dictation was produced using [employer] dictation software. please excuse any grammatical, word or spelling errors. Time with Patient: Less than 30
[2025-03-24 04:19] LABS: HCT 43.8 % (39.6-50.0); MCH 30.8 pg (27.0-32.0); MCV 96.3 fL (80.0-97.0); Mean Platelet Volume 10.9 fL (9.5-12.2); Platelet Count 167 10*3/uL (140-440); RBC 4.55 10*6/uL (4.40-5.60); WBC 7.86 10*3/uL (4.50-10.00)
[2025-03-24 04:36] LABS: African American GFR (CKD) 90 (>60 ml/min/1.73 sqM); Anion Gap 9 mmol/L; Blood Urea Nitrogen 25 mg/dL (9-20); Calcium 9.9 mg/dL (8.4-10.2); Carbon Dioxide 27 mmol/L (22-30); Chloride 104 mmol/L (98-107); Glucose 65 mg/dL (74-99); Non-African American GFR(CKD) 78 (>60 ml/min/1.73 sqM); Potassium 3.8 mmol/L (3.5-5.1); Sodium 140 mmol/L (137-145)
--- NOTE | 2025-03-24 12:18 | P.PN ---
Subjective Progress Note Date: 03/24/25 SURGICAL PROGRESS NOTE CHIEF COMPLAINT: Pneumonia HISTORY OF PRESENT ILLNESS: Patient lying in bed comfortably. Patient seen by speech therapy and there is no mechanical dysfunction per speech therapist. Patient did tolerate nohelia crackers and pop. PHYSICAL EXAM: VITAL SIGNS: Reviewed. GENERAL: Malnourished. No acute distress. ABDOMEN: Soft. Nondistended. Nontender. ASSESSMENT: 1. Dysphagia, failure to thrive, poor oral intake 2. Moderate protein calorie malnutrition 3. Possible aspiration pneumonia 4. Recurrent vomiting PLAN: -Patient passed a swallow eval. He is able to eat small amount. Family has decided not to proceed with PEG tube placement. PEG tube for today has been canceled. - Okay to resume Roberto Physician Customer Strategy Manager note has been reviewed by physician. Signing provider agrees with the documented findings, assessment, and plan of care. Objective - Vital Signs Vital signs: Vital Signs Temp 97.7 F 03/24/25 07:08 Pulse 81 03/24/25 07:08 Resp 14 03/24/25 07:08 BP 130/75 03/24/25 07:08 Pulse Ox 91 L 03/24/25 07:08 FiO2 Intake & Output 03/23/25 03/24/25 03/24/25 18:59 06:59 18:59 Intake Total 240 Output Total 350 Balance -350 240 Intake: Oral 240 Output: Urine 350 Other: Voiding Method Urinal Urinal # Voids 3 4 # Bowel Movements 0 - Labs CBC & Chem 7: 03/24/25 03:29 03/24/25 03:29 Labs: Abnormal Lab Results - Last 24 Hours (Table) 03/24/25 03/24/25 Range/Units 03:29 03:29 RDW 17.0 H (11.5-14.5) % BUN 25 H (9-20) mg/dL Glucose 65 L (74-99) mg/dL Microbiology - Last 24 Hours (Table) 03/21/25 09:08 Blood Culture - Preliminary Blood
--- NOTE | 2025-03-24 14:33 | P.PN ---
Subjective Progress Note Date: 03/24/25 This is a 84-year-old male patient was brought back within 24 hours after being discharged to the [facility] for worsening shortness of breath, increased weakness, increased lethargy and generalized weakness and debility. Noted, during his last hospitalization, the patient's oral intake has been essentially minimal and he was failing to thrive. Based on that, the patient was given Remeron at the time of discharge. While in the [facility], he was noted to have increased cough and congestion worsening shortness of breath and for that reason the patient was brought in to the emergency department. Family is at the bedside. He is awake and alert. He is a poor historian. No reported aspiratio n. He has ongoing moderate to severe protein calorie malnutrition and dementia. Comorbidities are multiple. In the emergency, the patient was second was at 9.4 with a hemoglobin of 17.4 and a platelet count of 221. BUN is 20 with a creatinine of 1.28 and a sodium levels of 138 and a potassium level of 5.1. Glucose was 101. LFTs are normal. Troponins are negative. EKG showed no acute ST segment elevation or depression. Chest x-ray showed increased interstitial opacities in lung base bila terally.Based on all this, the patient was hospitalized the D-dimer was at 0.9. Blood gas was done emergency that showed a pH of 7.44 with a [id number] and pO2 of 59 in the patient's blood gas was done FiO2 36%. The viral screen was negative. proBNP level was 1420. The patient has generalized global weakness. No focal neurological deficits. He follows simple commands. The patient is seen today March 22, 2025 in follow-up in the emergency department. He is currently resting on a stretcher. Awake and alert in no acute distress. Somewhat of a poor historian. He is maintaining O2 saturations in the 90s on 6 L/min per nasal cannula. White count 8.5. Hemoglobin 14.9. Platelets 195. He is afebrile. Hemodynamically stable. He remains on DuoNeb inhalations, Symbicort. Antibiotics in the form of ceftriaxone and azithromycin. Anticoagulated with Eliquis. Doppler of the lower extremities were negative for DVT. CT angiogram ruled out pulmonary embolism. Moderate to advanced underlying change with left greater than right lower acute infiltrates and/or atelectasis. The patient is seen today March 23, 2025 in follow-up on the regular medical floor. He is currently resting in bed. Awake and alert in no acute distress. He is quite weak and frail. He is continued on DuoNeb inhalations, Symbicort, ceftriaxone and azithromycin. White count 6.1. Hemoglobin 14.4. Platelets 174. Sodium 141. Potassium 5.2. Bicarb 24. BUN 31. Creatinine 1.2. Glucose 128. Procalcitonin was negative at 0.20. Plan is for PEG tube placement tomorrow to avoid continued aspirations. Eliquis on hold. The patient is seen today March 24, 2025 in follow-up on the regular medical floor. He is currently resting in bed. Awake and alert in no acute distress. He is scheduled for a PEG tube placement today. He remains nothing by mouth. He is continued on DuoNeb inhalations, Symbicort. Antibiotics in the form of ceftriaxone. Blood culture reveals no growth. White count 7.8. Hemoglobin 14 .0. Platelets 167. Sodium 140. Potassium 3.8. Bicarb 27. BUN 25. Creatinine 0.9. Glucose 65. Objective - Vital Signs Vital signs: Vital Signs Temp 97.6 F 03/24/25 13:33 Pulse 85 03/24/25 13:33 Resp 17 03/24/25 13:33 BP 114/78 03/24/25 13:33 Pulse Ox 94 L 03/24/25 13:33 FiO2 Intake & Output 03/23/25 03/24/25 03/24/25 18:59 06:59 18:59 Intake Total 240 Output Total 350 Balance -350 240 Intake: Oral 240 Output: Urine 350 Other: Voiding Method Urinal Urinal # Voids 3 4 # Bowel Movements 0 - Exam GENERAL EXAM: Alert, frail 84-year-old male, on 4 L nasal cannula, in no apparent distress. HEAD: Normocephalic. EYES: Normal reaction of pupils, equal size. NOSE: Clear with pink turbinates. THROAT: No erythema or exudates. Essentially edentulous NECK: No masses, no JVD. CHEST: No chest wall deformity. LUNGS: Equal air entry with few scattered rhonchi. Marked diminished breath sound bilaterally. CVS: S1 and S2 normal with no audible murmur, regular rhythm. ABDOMEN: No hepatosplenomegaly, normal bowel sounds, no guarding or rigidity. SPINE: No scoliosis or deformity SKIN: No rashes CENTRAL NERVOUS SYSTEM: No focal deficits, tone is normal in all 4 extremities. Generalized global weakness in all 4 extremities EXTREMITIES: There is no peripheral edema. No clubbing, no cyanosis. Peripher al pulses are intact. - Labs CBC & Chem 7: 03/24/25 03:29 03/24/25 03:29 Labs: Abnormal Lab Results - Last 24 Hours (Table) 03/24/25 03/24/25 Range/Units 03: 03: RDW 17.0 H (11.5-14.5) % BUN 25 H (9-20) mg/dL Glucose 65 L (74-99) mg/dL Microbiology - Last 24 Hours (Table) 03/21/25 09:08 Blood Culture - Preliminary Blood Assessment and Plan Assessment: Acute on chronic hypoxic respiratory failure currently on 4 L of oxygen by nasal cannula. Worsening interstitial infiltrates in lung base bilaterally. Rule out interstitial edema versus development of a pneumonia. This could be essentially hospital-acquired versus aspiration pneumonia. Failure to thrive in a patient with increasing generalized weakness, poor appetite and significant diminishment in oral intake. There may be also some difficulties in swallowing. The patient needs to be further investigated in this regard. Remeron was added during his last admission. The patient is not taking enough food to maintain his caloric requirements. Plan is for PEG tube placement today History of CAD, with previous stenting. The patient is known to have triple- vessel disease and the patient was supposed to undergo bypass surgery, however he was not found to be an appropriate candidate. He was given stent to his LAD as the patient was found to have an 80% proximal LAD lesion. History of atrial flutterfibrillation and current rhythm is atrial fibrillation CHF, reduced LV function. The patient's Previous echocardiogram from 2021 showed an ejection fraction of 45 to 50% without any significant valve abnormalities pulmonary hypertension. Acute kidney injury, mild, probably due to vascular depletion History of COPD, from previous tobacco use. Dementia History of recurrent unexplained syncope, could be cardiac History of hyperlipidemia. History of hypertension. Deafness. GERD. History of gout. Peripheral vascular disease Plan: The patient was seen and evaluated Labs and medications reviewed Plan is for PEG tube placement today Eliquis on hold Continue ceftriaxone Completed azithromycin Continue DuoNeb inhalations Continue Symbicort Titrate down the FiO2 as tolerated Plan will be to return to [facility] at discharge I have personally seen and examined the patient, performed the documentation and the assessment and plan as written. Number of minutes spent on the visit: 10 Dictation was produced using [employer] dictation software. Please excuse any grammatical, word or spelling errors.
[2025-03-25 12:21] VITALS: BMI 24.3
--- NOTE | 2025-03-25 12:32 | P.PN ---
Subjective Progress Note Date: 03/25/25 This is a 84-year-old male patient was brought back within 24 hours after being discharged to the shelter for worsening shortness of breath, increased weakness, increased lethargy and generalized weakness and debility. Noted, during his last hospitalization, the patient's oral intake has been essentially minimal and he was failing to thrive. Based on that, the patient was given Remeron at the time of discharge. While in the shelter, he was noted to have increased cough and congestion worsening shortness of breath and for that reason the patient was brought in to the emergency department. Family is at the bedside. He is awake and alert. He is a poor historian. No reported aspiratio n. He has ongoing moderate to severe protein calorie malnutrition and dementia. Comorbidities are multiple. In the emergency, the patient was second was at 9.4 with a hemoglobin of 17.4 and a platelet count of 221. BUN is 20 with a creatinine of 1.28 and a sodium levels of 138 and a potassium level of 5.1. Glucose was 101. LFTs are normal. Troponins are negative. EKG showed no acute ST segment elevation or depression. Chest x-ray showed increased interstitial opacities in lung base bila terally.Based on all this, the patient was hospitalized the D-dimer was at 0.9. Blood gas was done emergency that showed a pH of 7.44 with a [id number] and pO2 of 59 in the patient's blood gas was done FiO2 36%. The viral screen was negative. proBNP level was 1420. The patient has generalized global weakness. No focal neurological deficits. He follows simple commands. The patient is seen today March 22, 2025 in follow-up in the emergency department. He is currently resting on a stretcher. Awake and alert in no acute distress. Somewhat of a poor historian. He is maintaining O2 saturations in the 90s on 6 L/min per nasal cannula. White count 8.5. Hemoglobin 14.9. Platelets 195. He is afebrile. Hemodynamically stable. He remains on DuoNeb inhalations, Symbicort. Antibiotics in the form of ceftriaxone and azithromycin. Anticoagulated with Eliquis. Doppler of the lower extremities were negative for DVT. CT angiogram ruled out pulmonary embolism. Moderate to advanced underlying change with left greater than right lower acute infiltrates and/or atelectasis. The patient is seen today March 23, 2025 in follow-up on the regular medical floor. He is currently resting in bed. Awake and alert in no acute distress. He is quite weak and frail. He is continued on DuoNeb inhalations, Symbicort, ceftriaxone and azithromycin. White count 6.1. Hemoglobin 14.4. Platelets 174. Sodium 141. Potassium 5.2. Bicarb 24. BUN 31. Creatinine 1.2. Glucose 128. Procalcitonin was negative at 0.20. Plan is for PEG tube placement tomorrow to avoid continued aspirations. Eliquis on hold. The patient is seen today March 24, 2025 in follow-up on the regular medical floor. He is currently resting in bed. Awake and alert in no acute distress. He is scheduled for a PEG tube placement today. He remains nothing by mouth. He is continued on DuoNeb inhalations, Symbicort. Antibiotics in the form of ceftriaxone. Blood culture reveals no growth. White count 7.8. Hemoglobin 14 .0. Platelets 167. Sodium 140. Potassium 3.8. Bicarb 27. BUN 25. Creatinine 0.9. Glucose 65. The patient is seen today March 25, 2025 in follow-up on the regular medical floor. He is awake and alert in no acute distress. Resting in bed. Maintaining O2 saturations in the 90s on 4 L/min per nasal cannula. His family decided against a PEG tube which was not performed yesterday. He remains on DuoNeb inhalations, Symbicort. Denies any worsening shortness of breath, cough or congestion. Objective - Vital Signs Vital signs: Vital Signs Temp 98.2 F 03/25/25 07:33 Pulse 88 03/25/25 12:02 Resp 17 03/25/25 10:43 BP 111/78 03/25/25 07:33 Pulse Ox 93 L 03/25/25 11:48 FiO2 Intake & Output 03/24/25 03/25/25 03/25/25 18:59 06:59 18:59 Intake Total 240 100 Output Total 300 300 Balance -60 -200 Weight 72.575 kg Intake: Oral 240 100 Output: Urine 300 300 Other: Voiding Method Urinal Urinal Urinal # Voids 3 3 3 # Bowel Movements 1 1 - Exam GENERAL EXAM: Alert, frail 84-year-old male, on 4 L nasal cannula, resting in bed, in no apparent distress. HEAD: Normocephalic. EYES: Normal reaction of pupils, equal size. NOSE: Clear with pink turbinates. THROAT: No erythema or exudates. Essentially edentulous NECK: No masses, no JVD. CHEST: No chest wall deformity. LUNGS: Equal air entry with few scattered rhonchi. Marked diminished breath sound bilaterally. CVS: S1 and S2 normal with no audible murmur, regular rhythm. ABDOMEN: No hepatosplenomegaly, normal bowel sounds, no guarding or rigidity. SPINE: No scoliosis or deformity SKIN: No rashes CENTRAL NERVOUS SYSTEM: No focal deficits, tone is normal in all 4 extremities. Generalized global weakness in all 4 extremities EXTREMITIES: There is no peripheral edema. No clubbing, no cyanosis. Peripheral pulses are intact. - Labs CBC & Chem 7: 03/24/25 03:29 03/24/25 03:29 Labs: Microbiology - Last 24 Hours (Table) 03/21/25 09:08 Blood Culture - Preliminary Blood Assessment and Plan Assessment: Acute on chronic hypoxic respiratory failure currently on 4 L of oxygen by nasal cannula. Worsening interstitial infiltrates in lung base bilaterally. Rule out interstitial edema versus development of a pneumonia. This could be essentially hospital-acquired versus aspiration pneumonia. Failure to thrive in a patient with increasing generalized weakness, poor appetite and significant diminishment in oral intake. There may be also some difficulties in swallowing. The patient needs to be further investigated in this regard. Remeron was added during his last admission. The patient is not taking enough food to maintain his caloric requirements. Family decided against PEG tube placement History of CAD, with previous stenting. The patient is known to have triple- vessel disease and the patient was supposed to undergo bypass surgery, however he was not found to be an appropriate candidate. He was given stent to his LAD as the patient was found to have an 80% proximal LAD lesion. History of atrial flutterfibrillation and current rhythm is atrial fibrillation CHF, reduced LV function. The patient's Previous echocardiogram from 2021 showed an ejection fraction of 45 to 50% without any significant valve abnormalities pulmonary hypertension. Acute kidney injury, mild, probably due to vascular depletion History of COPD, from previous tobacco use. Dementia History of recurrent unexplained syncope, could be cardiac History of hyperlipidemia. History of hypertension. Deafness. GERD. History of gout. Peripheral vascular disease Plan: The patient was seen and evaluated Medications reviewed Continue DuoNeb inhalations Continue Symbicort Titrate down the FiO2 as tolerated Family decided against PEG tube placement Would recommend the patient be on hospice/comfort care Patient should be a DNR/DNI CODE STATUS as well Plan is to return to [facility] I have personally seen and examined the patient, performed the documentation and the assessment and plan as written. Number of minutes spent on the visit: 10 Dictation was produced using [employer] dictation software. Please excuse any grammatical, word or spelling errors.
--- NOTE | 2025-03-25 13:42 | P.PN ---
Subjective Progress Note Date: 03/25/25 SURGICAL PROGRESS NOTE CHIEF COMPLAINT: Pneumonia HISTORY OF PRESENT ILLNESS: Patient lying in bed comfortably. Patient seen by speech therapy and there is no mechanical dysfunction per speech therapist. Patient was able to eat small amount. PHYSICAL EXAM: VITAL SIGNS: Reviewed. GENERAL: Malnourished. No acute distress. ABDOMEN: Soft. Nondistended. Nontender. ASSESSMENT: 1. Dysphagia, failure to thrive, poor oral intake 2. Moderate protein calorie malnutrition 3. Possible aspiration pneumonia 4. Recurrent vomiting PLAN: -Patient passed a swallow eval. He is able to eat small amount. Family has decided not to proceed with PEG tube placement. PEG tube canceled yesterday -Okay to resume Roberto Physician Bindery Cutter Operator note has been reviewed by physician. Signing provider agrees with the documented findings, assessment, and plan of care. Objective - Vital Signs Vital signs: Vital Signs Temp 98.2 F 03/25/25 07:33 Pulse 88 03/25/25 12:02 Resp 17 03/25/25 10:43 BP 111/78 03/25/25 07:33 Pulse Ox 93 L 03/25/25 11:48 FiO2 Intake & Output 03/24/25 03/25/25 03/25/25 18:59 06:59 18:59 Intake Total 240 100 Output Total 300 300 Balance -60 -200 Weight 72.575 kg Intake: Oral 240 100 Output: Urine 300 300 Other: Voiding Method Urinal Urinal Urinal # Voids 3 3 3 # Bowel Movements 1 1 - Labs CBC & Chem 7: 03/24/25 03:29 03/24/25 03:29 Labs: Microbiology - Last 24 Hours (Table) 03/21/25 09:08 Blood Culture - Preliminary Blood
--- NOTE | 2025-03-25 14:33 | P.PN ---
Subjective Progress Note Date: 03/24/25 Patient is a 84-year-old male with a history of CAD, A-fib, COPD, GERD, hyperlipidemia, hypertension, presented to the ER from senior care for shortness of breath. Patient was only recently discharged from the hospital. According to daughter who was at the bedside patient has been having worsening shortness of breath for the last day, patient also having cough which was productive.. Patient also started having nausea and vomiting. There was no complaint abdominal pain. There was no complaint of altered bowel movements. There is no complaint of any chest pain. Nursing staff at the facility noticed that the patient was requiring more oxygen and decided to send him to the ER Initial lab work done in the ER showed WBC 9.47, hemoglobin 17.4, platelet count 221, sodium 138, potassium 5.1, BUN 20, creatinine 1.28, glucose 101, AST 44, ALT 70 troponin 0.012 EKG done in the ER showed heart rate of115 , no ST segment elevation or depression seen, no T-wave inversions seen. Chest x-ray done in the ER diffuse interstitial opacity consistent with chronic interstitial changes versus mild CHF Patient admitted to internal medicine service 03/22. Patient seen and examined. Patient is lethargic, unable to swallow meds, swallow study ordered for today. Pulmonology had discussed with patient family, at this time they are open to PEG tube placement. Lab review showed WBC 8.5, hemoglobin 14.9, platelet count 195, D-dimer was elevated 0.9. Will order CT angio chest, patient be premedicated with contrast allergy prophylaxis 03/23. Patient seen and examined. Labs reviewed WBCs, 3, hemoglobin 14.4, platelet count 174, sodium 141, potassium 5.2, BUN 31, creatinine 1.2 CT chest PE protocol done showed no evidence of PE, showed moderate to advancing underlying changes of the left greater than right lower lobe infiltrates. Patient is more awake compared to yesterday, sitting upright in the bed 03/24. Patient seen and examined labs reviewed showed WBC 7.86, hemoglobin 14, sodium 140, potassium 3.8, BUN 25, creatinine 0.90.Currently on 4 L of oxygen. Breathing has improved REVIEW OF SYSTEMS: Denies any chest pain. Denies palpitations. Denies shortness of breath. Denies any nausea or vomiting PHYSICAL EXAMINATION: GENERAL: The patient is lethargic HEENT: Pupils are round and equally reacting to light. EOMI. No scleral icterus. No conjunctival pallor. Normocephalic, atraumatic. No pharyngeal erythema. No thyromegaly. CARDIOVASCULAR: S1 and S2 present. No murmurs, rubs, or gallops. PULMONARY: Coarse breath sound bilaterally ABDOMEN: Soft, nontender, nondistended, normoactive bowel sounds. No palpable organomegaly. MUSCULOSKELETAL: No joint swelling or deformity. EXTREMITIES: No cyanosis, clubbing, or pedal edema. NEUROLOGICAL: Gross neurological examination did not reveal any focal deficits. SKIN: No rashes. Assessment and plan Acute on chronic hypoxic respiratory failure Bacterial pneumonia Generalized weakness Moderate to severe protein caloric malnutrition History of dementia Transaminitis Chronic obstructive pulmonary disease History of previous chronic tobacco dependence Coronary artery disease with previous stent placement History of atrial flutter, anticoagulated with Eliquis History of congestive heart failure Hypertension hyperlipidemia Hearing disorder History of gout Monitor vital signs Monitor CBC Monitor CMP Continue telemetry monitoring Follow-up on blood cultures Follow-up on sputum culture Continue IV Rocephin azithromycin Continue breathing treatments Eliquis on Hold Consulted surgery for PEG tube placement, scheduled for Saturday Follow-up on pulmonology recommendation Follow-up on ID recommendations Labs and medication were reviewed.. Continue same treatment. Continue with symptomatic treatment. Resume home medication. Monitor labs and vitals. DVT and GI prophylaxis. Further recommendations as per clinical course of the patient Dictation was produced using [employer] dictation software. please excuse any grammatical, word or spelling errors. Objective - Vital Signs Vital signs: Vital Signs Temp 97.7 F 03/24/25 07:08 Pulse 81 03/24/25 07:08 Resp 14 03/24/25 07:08 BP 130/75 03/24/25 07:08 Pulse Ox 91 L 03/24/25 07:08 FiO2 Intake & Output 03/23/25 03/24/25 03/24/25 18:59 06:59 18:59 Intake Total 240 Output Total 350 Balance -350 240 Intake: Oral 240 Output: Urine 350 Other: Voiding Method Urinal Urinal # Voids 3 4 # Bowel Movements 0 - Labs CBC & Chem 7: 03/24/25 03:29 03/24/25 03:29 Labs: Abnormal Lab Results - Last 24 Hours (Table) 03/23/25 03/23/2503/24/25 Range/Units 03:00 03:00 03:29 MCHC 30.8 L (32.0-37.0) g/dL RDW 17.2 H 17.0 H (11.5-14.5) % Lymphocytes # 0.77 L (0.90-5.00) X 10*3/uL BUN 31.0 H (9.0-27.0) mg/dL Est GFR (CKD-EPI) 59 L (>=60) BUN/Creatinine Ratio 25.83 H (12.00-20.00) Ratio Glucose 128 H (70-110) mg/dL Alkaline Phosphatase 145 H (41-126) U/L Total Protein 5.7 L (6.2-8.2) g/dL Albumin 3.2 L (3.8-4.9) g/dL Albumin/Globulin Ratio 1.28 L (1.60-3.17) Ratio 03/24/25 Range/Units 03:29 MCHC (32.0-37.0) g/dL RDW (11.5-14.5) % Lymphocytes # (0.90-5.00) X 10*3/uL BUN 25 H (9.0-27.0) mg/dL Est GFR (CKD-EPI) (>=60) BUN/Creatinine Ratio (12.00-20.00) Ratio Glucose 65 L (70-110) mg/dL Alkaline Phosphatase (41-126) U/L Total Protein (6.2-8.2) g/dL Albumin (3.8-4.9) g/dL Albumin/Globulin Ratio (1.60-3.17) Ratio Microbiology - Last 24 Hours (Table) 03/21/25 09:08 Blood Culture - Preliminary Blood
--- NOTE | 2025-03-25 14:37 | P.PN ---
Subjective Progress Note Date: 03/25/25 Patient is a 84-year-old male with a history of CAD, A-fib, COPD, GERD, hyperlipidemia, hypertension, presented to the ER from skilled nursing for shortness of breath. Patient was only recently discharged from the hospital. According to daughter who was at the bedside patient has been having worsening shortness of breath for the last day, patient also having cough which was productive.. Patient also started having nausea and vomiting. There was no complaint abdominal pain. There was no complaint of altered bowel movements. There is no complaint of any chest pain. Nursing staff at the facility noticed that the patient was requiring more oxygen and decided to send him to the ER Initial lab work done in the ER showed WBC 9.47, hemoglobin 17.4, platelet count 221, sodium 138, potassium 5.1, BUN 20, creatinine 1.28, glucose 101, AST 44, ALT 70 troponin 0.012 EKG done in the ER showed heart rate of115 , no ST segment elevation or depression seen, no T-wave inversions seen. Chest x-ray done in the ER diffuse interstitial opacity consistent with chronic interstitial changes versus mild CHF Patient admitted to internal medicine service 03/22. Patient seen and examined. Patient is lethargic, unable to swallow meds, swallow study ordered for today. Pulmonology had discussed with patient family, at this time they are open to PEG tube placement. Lab review showed WBC 8.5, hemoglobin 14.9, platelet count 195, D-dimer was elevated 0.9. Will order CT angio chest, patient be premedicated with contrast allergy prophylaxis 03/23. Patient seen and examined. Labs reviewed WBCs, 3, hemoglobin 14.4, platelet count 174, sodium 141, potassium 5.2, BUN 31, creatinine 1.2 CT chest PE protocol done showed no evidence of PE, showed moderate to advancing underlying changes of the left greater than right lower lobe infiltrates. Patient is more awake compared to yesterday, sitting upright in the bed 03/24. Patient seen and examined labs reviewed showed WBC 7.86, hemoglobin 14, sodium 140, potassium 3.8, BUN 25, creatinine 0.90.Currently on 4 L of oxygen. Breathing has improved 03/25. Patient seen and examined. Patient passed the swallow eval yesterday, PEG tube placement was discontinued. Patient continues to have poor appetite. Temperature 97%, heart rate 84, currently on 4 L of oxygen. REVIEW OF SYSTEMS: Denies any chest pain. Denies palpitations. Complaining of bodyaches. Denies shortness of breath. Denies any nausea or vomiting PHYSICAL EXAMINATION: GENERAL: The patient is lethargic HEENT: Pupils are round and equally reacting to light. EOMI. No scleral icterus. No conjunctival pallor. Normocephalic, atraumatic. No pharyngeal erythema. No thyromegaly. CARDIOVASCULAR: S1 and S2 present. No murmurs, rubs, or gallops. PULMONARY: Coarse breath sound bilaterally ABDOMEN: Soft, nontender, nondistended, normoactive bowel sounds. No palpable organomegaly. MUSCULOSKELETAL: No joint swelling or deformity. EXTREMITIES: No cyanosis, clubbing, or pedal edema. NEUROLOGICAL: Gross neurological examination did not reveal any focal deficits. SKIN: No rashes. Assessment and plan Acute on chronic hypoxic respiratory failure Bacterial pneumonia Generalized weakness Moderate to severe protein caloric malnutrition History of dementia Transaminitis Chronic obstructive pulmonary disease History of previous chronic tobacco dependence Coronary artery disease with previous stent placement History of atrial flutter, anticoagulated with Eliquis History of congestive heart failure Hypertension hyperlipidemia Hearing disorder History of gout Monitor vital signs Monitor CBC Monitor CMP Continue telemetry monitoring Completed 5 days of IV antibiotic Continue breathing treatments Resume Eliquis PEG tube placement was discontinued Follow-up on pulmonology recommendation Follow-up on ID recommendations Has asked nursing staff to arrange for family to come in in the morning to have a family meeting regarding goals of care Labs and medication were reviewed.. Continue same treatment. Continue with symptomatic treatment. Resume home medication. Monitor labs and vitals. DVT and GI prophylaxis. Further recommendations as per clinical course of the patient Dictation was produced using [employer] dictation software. please excuse any grammatical, word or spelling errors. Objective - Vital Signs Vital signs: Vital Signs Temp 97.7 F 03/25/25 14:00 Pulse 84 03/25/25 14:00 Resp 15 03/25/25 14:00 BP 114/77 03/25/25 14:00 Pulse Ox 93 L 03/25/25 14:00 FiO2 Intake & Output 03/24/25 03/25/25 03/25/25 18:59 06:59 18:59 Intake Total 240 100 Output Total 300 300 Balance -60 -200 Weight 72.575 kg Intake: Oral 240 100 Output: Urine 300 300 Other: Voiding Method Urinal Urinal Urinal # Voids 3 3 3 # Bowel Movements 1 1 - Labs CBC & Chem 7: 03/24/25 03:29 03/24/25 03:29 Labs: Microbiology - Last 24 Hours (Table) 03/21/25 09:08 Blood Culture - Preliminary Blood
--- NOTE | 2025-03-25 14:51 | P.PN ---
Subjective Progress Note Date: 03/24/25 Principal diagnosis: Reason for follow-up is pneumonia Patient is a 84-year-old male with a past medical history significant for hypertension hyperlipidemia COPD heart failure coronary artery disease has been brought into the hospital from a local detention because of increasing shortness of breath and increasing O2 requirement, CT did shows evidence of moderate antral hernia right lower lobe infiltrate concerning for pneumonia. On today's evaluation that is 03/24/2025, patient has been afebrile, patient is breathing comfortably and is currently on 4 L nasal oxygen patient does not seem to be in distress is sleepy but arousable unable to provide reliable history Patient white count is 7.86, creatinine 0.90 Objective - Vital Signs Vital signs: Vital Signs Temp 97.8 F 03/24/25 19:05 Pulse 75 03/24/25 20:25 Resp 20 03/24/25 20:25 BP 112/71 03/24/25 19:05 Pulse Ox 95 03/24/25 19:05 FiO2 Intake & Output 03/24/25 03/24/25 03/25/25 06:59 18:59 06:59 Intake Total 240 Balance 240 Intake: Oral 240 Other: Voiding Method Urinal Urinal # Voids 4 3 # Bowel Movements 1 - Exam GENERAL DESCRIPTION: An elderly male lying in bed in no distress RESPIRATORY SYSTEM: Unlabored breathing , decreased breath sounds at bases HEART: S1 S2 regular rate and rhythm , ABDOMEN: Soft , no tenderness EXTREMITIES: No edema feet - Labs CBC & Chem 7: 03/24/25 03:29 03/24/25 03:29 Labs: Abnormal Lab Results - Last 24 Hours (Table) 03/24/25 03/24/25 Range/Units 03:29 03:29 RDW 17.0 H (11.5-14.5) % BUN 25 H (9-20) mg/dL Glucose 65 L (74-99) mg/dL Microbiology - Last 24 Hours (Table) 03/21/25 09:08 Blood Culture - Preliminary Blood Assessment and Plan (1) Penicillin allergy Current Visit: Yes Status: Acute Code(s): Z88.0 - ALLERGY STATUS TO PENICI LLIN SNOMED Code(s): 88319121 (2) Pneumonia Current Visit: Yes Status: Acute Code(s): J18.9 - PNEUMONIA, UNSPECIFIED ORGANISM SNOMED Code(s): 580215087 Plan: 1patient presented to hospital with increasing shortness of breath and cough in this patient with evidence of consolidative changes right lower lobe large hiat al hernia with concern for possible aspiration 2penicillin allergies that will limit number of antibiotic safe to use 3sputum could not be obtained, patient seem to have shown some clinical improv ement to continue with Rocephin and monitor clinical course closely Dictation was produced using [employer] dictation software. please excuse any grammatical, word or spelling errors. Time with Patient: Less than 30
--- NOTE | 2025-03-25 14:52 | P.PN ---
Subjective Progress Note Date: 03/25/25 Principal diagnosis: Reason for follow-up is pneumonia Patient is a 84-year-old male with a past medical history significant for hypertension hyperlipidemia COPD heart failure coronary artery disease has been brought into the hospital from a local skilled nursing because of increasing shortness of breath and increasing O2 requirement, CT did shows evidence of moderate antral hernia right lower lobe infiltrate concerning for pneumonia. On today's evaluation that is 03/25/2025, Patient is afebrile this morning patient is breathing comfortably currently on 4 L nasal cannula oxygen patient is sleepy but arousable no vomiting diarrhea or any changes reported by the [facility] staff. No new labs has been obtained today Objective - Vital Signs Vital signs: Vital Signs Temp 97.7 F 03/25/25 14:00 Pulse 84 03/25/25 14:00 Resp 15 03/25/25 14:00 BP 114/77 03/25/25 14:00 Pulse Ox 93 L 03/25/25 14:00 FiO2 Intake & Output 03/24/25 03/25/25 03/25/25 18:59 06:59 18:59 Intake Total 240 100 Output Total 300 300 Balance -60 -200 Weight 72.575 kg Intake: Oral 240 100 Output: Urine 300 300 Other: Voiding Method Urinal Urinal Urinal # Voids 3 3 3 # Bowel Movements 1 1 - Exam GENERAL DESCRIPTION: An elderly male lying in bed in no distress RESPIRATORY SYSTEM: Unlabored breathing , decreased breath sounds at bases HEART: S1 S2 regular rate and rhythm , ABDOMEN: Soft , no tenderness EXTREMITIES: No edema feet - Labs CBC & Chem 7: 03/24/25 03:29 03/24/25 03:29 Labs: Microbiology - Last 24 Hours (Table) 03/21/25 09:08 Blood Culture - Preliminary Blood Assessment and Plan (1) Penicillin allergy Current Visit: Yes Status: Acute Code(s): Z88.0 - ALLERGY STATUS TO PENICILLIN SNOMED Code(s): 10684736 (2) Pneumonia Current Visit: Yes Status: Acute Code(s): J18.9 - PNEUMONIA, UNSPECIFIED ORGANISM SNOMED Code(s): 507280902 Plan: 1patient presented to hospital with increasing shortness of breath and cough in this patient with evidence of consolidative changes right lower lobe large hiatal hernia with concern for possible aspiration 2penicillin allergies that will limit number of antibiotic safe to use 3patient seem to have shown some clinical improvement did pass a swallow test PEG tube has been canceled completed a 5-day course of Rocephin we will monitor closely off antibiotic at this point Dictation was produced using [employer] dictation software. please excuse any grammatical, word or spelling errors. Time with Patient: Less than 30
[2025-03-25] MEDS: LACTATED RINGERS 1,000 ML IV SCH (15:30)
[2025-03-25] MEDS: APIXABAN 2.5 MG TABLET PO SCH (16:24)
[2025-03-26 08:12] LABS: Basophils # (A) 0.06 X 10*3/uL (0.00-0.10); Basophils % (A) 0.9 %; Eosinophils # (A) 0.37 X 10*3/uL (0.04-0.35); Eosinophils % (A) 5.7 %; HGB 13.9 g/dL (13.0-17.0); Lymphocytes # (A) 1.23 X 10*3/uL (0.90-5.00); Lymphocytes % (A) 18.9 %; MCH 30.2 pg (27.0-32.0); MCHC 31.6 g/dL (32.0-37.0); MCV 95.7 FL (80.0-97.0); Mean Platelet Volume 10.8 FL (9.5-12.2); Monocytes # (A) 0.65 X 10*3/uL (0.20-1.00); NRBC Per 100 WBC 0 X 10*3/uL (0.00-0.01); Neutrophils # (A) 4.14 X 10*3/uL (1.80-7.70); Neutrophils % (A) 63.6 %; Platelet Count 154 X 10*3/uL (140-440); RDW 16.7 % (11.5-14.5); WBC 6.51 X 10*3/uL (4.50-10.00)
[2025-03-26 08:51] LABS: ALT 42 U/L (10-49); AST 31 U/L (14-35); Albumin 2.9 g/dL (3.8-4.9); Albumin/Globulin Ratio 1.16 Ratio (1.60-3.17); Alkaline Phosphatase 137 U/L (41-126); BUN/Creat Ratio 12.62 Ratio (12.00-20.00); Blood Urea Nitrogen 10.1 mg/dL (9.0-27.0); Calcium 8.8 mg/dL (8.7-10.3); Carbon Dioxide 23.9 mmol/L (21.6-31.8); Chloride 106 mmol/L (96-109); Globulin 2.5 g/dL (1.6-3.3); Glucose 66 mg/dL (70-110); Potassium 3.7 mmol/L (3.5-5.5); Sodium 139 mmol/L (135-145); Total Bilirubin 0.4 mg/dL (0.3-1.2); Total Protein 5.4 g/dL (6.2-8.2)
--- NOTE | 2025-03-26 12:37 | P.PN ---
Subjective Progress Note Date: 03/26/25 SURGICAL PROGRESS NOTE CHIEF COMPLAINT: Pneumonia HISTORY OF PRESENT ILLNESS: Patient sitting up in bed comfortably. Patient is tolerating diet. At times only eating a small amount. Patient seen by speech therapy and there is no mechanical dysfunction per speech therapist. Patient was able to eat small amount. PHYSICAL EXAM: VITAL SIGNS: Reviewed. GENERAL: Malnourished. No acute distress. ABDOMEN: Soft. Nondistended. Nontender. ASSESSMENT: 1. Dysphagia, failure to thrive, poor oral intake 2. Moderate protein calorie malnutrition 3. Possible aspiration pneumonia 4. Recurrent vomiting PLAN: -Patient passed a swallow eval. He is able to eat small amount. Family has decided not to proceed with PEG tube placement. - No plans for PEG tube at this time Physician Business Systems Manager note has been reviewed by physician. Signing provider agrees with the documented findings, assessment, and plan of care. Objective - Vital Signs Vital signs: Vital Signs Temp 98.3 F 03/26/25 07:57 Pulse 86 03/26/25 12:07 Resp 16 03/26/25 07:57 BP 134/87 03/26/25 07:57 Pulse Ox 95 03/26/25 08:57 FiO2 Intake & Output 03/25/25 03/26/25 03/26/25 18:59 06:59 18:59 Intake Total 100 Output Total 300 Balance -200 Weight 72.575 kg Intake: Oral 100 Output: Urine 300 Other: Voiding Method Urinal Urinal # Voids 2 2 # Bowel Movements 1 - Labs CBC & Chem 7: 03/26/25 03:57 03/26/25 03:57 Labs: Abnormal Lab Results - Last 24 Hours (Table) 03/26/25 03/26/25 Range/Units 03:57 03:57 MCHC 31.6 L (32.0-37.0) g/dL RDW 16.7 H (11.5-14.5) % Immature Gran # 0.06 H (0.00-0.04) X 10*3/uL Eosinophils # 0.37 H (0.04-0.35) X 10*3/uL Glucose 66 L (70-110) mg/dL Alkaline Phosphatase 137 H (41-126) U/L Total Protein 5.4 L (6.2-8.2) g/dL Albumin 2.9 L (3.8-4.9) g/dL Albumin/Globulin Ratio 1.16 L (1.60-3.17) Ratio
--- NOTE | 2025-03-26 12:46 | P.PN ---
Subjective Progress Note Date: 03/26/25 Patient is a 84-year-old male with a history of CAD, A-fib, COPD, GERD, hyperlipidemia, hypertension, presented to the ER from long term for shortness of breath. Patient was only recently discharged from the hospital. According to daughter who was at the bedside patient has been having worsening shortness of breath for the last day, patient also having cough which was productive.. Patient also started having nausea and vomiting. There was no complaint abdominal pain. There was no complaint of altered bowel movements. There is no complaint of any chest pain. Nursing staff at the facility noticed that the patient was requiring more oxygen and decided to send him to the ER Initial lab work done in the ER showed WBC 9.47, hemoglobin 17.4, platelet count 221, sodium 138, potassium 5.1, BUN 20, creatinine 1.28, glucose 101, AST 44, ALT 70 troponin 0.012 EKG done in the ER showed heart rate of115 , no ST segment elevation or depression seen, no T-wave inversions seen. Chest x-ray done in the ER diffuse interstitial opacity consistent with chronic interstitial changes versus mild CHF Patient admitted to internal medicine service 03/22. Patient seen and examined. Patient is lethargic, unable to swallow meds, swallow study ordered for today. Pulmonology had discussed with patient family, at this time they are open to PEG tube placement. Lab review showed WBC 8.5, hemoglobin 14.9, platelet count 195, D-dimer was elevated 0.9. Will order CT angio chest, patient be premedicated with contrast allergy prophylaxis 03/23. Patient seen and examined. Labs reviewed WBCs, 3, hemoglobin 14.4, platelet count 174, sodium 141, potassium 5.2, BUN 31, creatinine 1.2 CT chest PE protocol done showed no evidence of PE, showed moderate to advancing underlying changes of the left greater than right lower lobe infiltrates. Patient is more awake compared to yesterday, sitting upright in the bed 03/24. Patient seen and examined labs reviewed showed WBC 7.86, hemoglobin 14, sodium 140, potassium 3.8, BUN 25, creatinine 0.90.Currently on 4 L of oxygen. Breathing has improved 03/25. Patient seen and examined. Patient passed the swallow eval yesterday, PEG tube placement was discontinued. Patient continues to have poor appetite. Temperature 97%, heart rate 84, currently on 4 L of oxygen. . Patient seen and examined. and daughter at the bedside. Discussed with them in detail regarding patient's poor prognosis and possible hospice. Family at this time are not decided about changing goals of care, want to discuss with pulmonology and surgery. Patient continues to have poor appetite. Currently on 4liters of of oxygen. REVIEW OF SYSTEMS: Denies any chest pain. Denies palpitations. Complaining of bodyaches. Denies shortness of breath. Denies any nausea or vomiting PHYSICAL EXAMINATION: GENERAL: The patient is lethargic HEENT: Pupils are round and equally reacting to light. EOMI. No scleral icterus. No conjunctival pallor. Normocephalic, atraumatic. No pharyngeal erythema. No thyromegaly. CARDIOVASCULAR: S1 and S2 present. No murmurs, rubs, or gallops. PULMONARY: Coarse breath sound bilaterally ABDOMEN: Soft, nontender, nondistended, normoactive bowel sounds. No palpable organomegaly. MUSCULOSKELETAL: No joint swelling or deformity. EXTREMITIES: No cyanosis, clubbing, or pedal edema. NEUROLOGICAL: Gross neurological examination did not reveal any focal deficits. SKIN: No rashes. Assessment and plan Acute on chronic hypoxic respiratory failure Bacterial pneumonia Generalized weakness Moderate to severe protein caloric malnutrition History of dementia Transaminitis Chronic obstructive pulmonary disease History of previous chronic tobacco dependence Coronary artery disease with previous stent placement History of atrial flutter, anticoagulated with Eliquis History of congestive heart failure Hypertension hyperlipidemia Hearing disorder History of gout Monitor vital signs Monitor CBC Monitor CMP Continue telemetry monitoring Completed 5 days of IV antibiotic Continue breathing treatments Continue Eliquis PEG tube placement was discontinued Follow-up on pulmonology recommendation, recommendation m noted from 03/25 Follow-up on ID recommendations, recommendations noted from 03/25 and daughter at the bedside. Discussed with them in detail regarding patient's poor prognosis and possible hospice. Family at this time are not decided about changing goals of care, want to discuss with pulmonology and surgery Labs and medication were reviewed.. Continue same treatment. Continue with symptomatic treatment. Resume home medication. Monitor labs and vitals. DVT and GI prophylaxis. Further recommendations as per clinical course of the patient Dictation was produced using [email or web address] dictation software. please excuse any grammatical, word or spelling errors. Objective - Vital Signs Vital signs: Vital Signs Temp 98.3 F 03/26/25 07:57 Pulse 86 03/26/25 12:07 Resp 16 03/26/25 07:57 BP 134/87 03/26/25 07:57 Pulse Ox 95 03/26/25 08:57 FiO2 Intake & Output 03/25/25 03/26/25 03/26/25 18:59 06:59 18:59 Intake Total 100 Output Total 300 Balance -200 Weight 72.575 kg Intake: Oral 100 Output: Urine 300 Other: Voiding Method Urinal Urinal # Voids 2 2 # Bowel Movements 1 - Labs CBC & Chem 7: 03/26/25 03:57 03/26/25 03:57 Labs: Abnormal Lab Results - Last 24 Hours (Table) 03/26/25 03/26/25 Range/Units 03:57 03:57 MCHC 31.6 L (32.0-37.0) g/dL RDW 16.7 H (11.5-14.5) % Immature Gran # 0.06 H (0.00-0.04) X 10*3/uL Eosinophils # 0.37 H (0.04-0.35) X 10*3/uL Glucose 66 L (70-110) mg/dL Alkaline Phosphatase 137 H (41-126) U/L Total Protein 5.4 L (6.2-8.2) g/dL Albumin 2.9 L (3.8-4.9) g/dL Albumin/Globulin Ratio 1.16 L (1.60-3.17) Ratio
--- NOTE | 2025-03-26 12:53 | P.PN ---
Subjective Progress Note Date: 03/26/25 This is a 84-year-old male patient was brought back within 24 hours after being discharged to the half-way for worsening shortness of breath, increased weakness, increased lethargy and generalized weakness and debility. Noted, during his last hospitalization, the patient's oral intake has been essentially minimal and he was failing to thrive. Based on that, the patient was given Remeron at the time of discharge. While in the half-way, he was noted to have increased cough and congestion worsening shortness of breath and for that reason the patient was brought in to the emergency department. Family is at the bedside. He is awake and alert. He is a poor historian. No reported aspiratio n. He has ongoing moderate to severe protein calorie malnutrition and dementia. Comorbidities are multiple. In the emergency, the patient was second was at 9.4 with a hemoglobin of 17.4 and a platelet count of 221. BUN is 20 with a creatinine of 1.28 and a sodium levels of 138 and a potassium level of 5.1. Glucose was 101. LFTs are normal. Troponins are negative. EKG showed no acute ST segment elevation or depression. Chest x-ray showed increased interstitial opacities in lung base bila terally.Based on all this, the patient was hospitalized the D-dimer was at 0.9. Blood gas was done emergency that showed a pH of 7.44 with a BDQ256 and pO2 of 59 in the patient's blood gas was done FiO2 36%. The viral screen was negative. proBNP level was 1420. The patient has generalized global weakness. No focal neurological deficits. He follows simple commands. The patient is seen today March 22, 2025 in follow-up in the emergency department. He is currently resting on a stretcher. Awake and alert in no acute distress. Somewhat of a poor historian. He is maintaining O2 saturations in the 90s on 6 L/min per nasal cannula. White count 8.5. Hemoglobin 14.9. Platelets 195. He is afebrile. Hemodynamically stable. He remains on DuoNeb inhalations, Symbicort. Antibiotics in the form of ceftriaxone and azithromycin. Anticoagulated with Eliquis. Doppler of the lower extremities were negative for DVT. CT angiogram ruled out pulmonary embolism. Moderate to advanced underlying change with left greater than right lower acute infiltrates and/or atelectasis. The patient is seen today March 23, 2025 in follow-up on the regular medical floor. He is currently resting in bed. Awake and alert in no acute distress. He is quite weak and frail. He is continued on DuoNeb inhalations, Symbicort, ceftriaxone and azithromycin. White count 6.1. Hemoglobin 14.4. Platelets 174. Sodium 141. Potassium 5.2. Bicarb 24. BUN 31. Creatinine 1.2. Glucose 128. Procalcitonin was negative at 0.20. Plan is for PEG tube placement tomorrow to avoid continued aspirations. Eliquis on hold. The patient is seen today March 24, 2025 in follow-up on the regular medical floor. He is currently resting in bed. Awake and alert in no acute distress. He is scheduled for a PEG tube placement today. He remains nothing by mouth. He is continued on DuoNeb inhalations, Symbicort. Antibiotics in the form of ceftriaxone. Blood culture reveals no growth. White count 7.8. Hemoglobin 14 .0. Platelets 167. Sodium 140. Potassium 3.8. Bicarb 27. BUN 25. Creatinine 0.9. Glucose 65. The patient is seen today March 25, 2025 in follow-up on the regular medical floor. He is awake and alert in no acute distress. Resting in bed. Maintaining O2 saturations in the 90s on 4 L/min per nasal cannula. His family decided against a PEG tube which was not performed yesterday. He remains on DuoNeb inhalations, Symbicort. Denies any worsening shortness of breath, cough or congestion. The patient is seen today March 26, 2025 in follow-up on the regular medical floor. He is currently resting in bed. Awake and alert in no acute distress. Maintaining O2 saturations in the 90s on 4 L/min per nasal cannula. Has been afebrile. Hemodynamically stable. Blood culture revealed no growth. White count 6.5. Hemoglobin 13.9. Platelets 154. Sodium 139. Potassium 3.7. Bicarb 24. BUN 10. Creatinine 0.8. Glucose 66. He remains on DuoNeb inhalations, Symbicort Objective - Vital Signs Vital signs: Vital Signs Temp 98.3 F 03/26/25 07:57 Pulse 86 03/26/25 12:07 Resp 16 03/26/25 07:57 BP 134/87 03/26/25 07:57 Pulse Ox 95 03/26/25 08:57 FiO2 Intake & Output 03/25/25 03/26/25 03/26/25 18:59 06:59 18:59 Intake Total 100 Output Total 300 Balance -200 Weight 72.575 kg Intake: Oral 100 Output: Urine 300 Other: Voiding Method Urinal Urinal # Voids 2 2 # Bowel Movements 1 - Exam GENERAL EXAM: Alert, frail, weak 84-year-old male, on 4 L nasal cannula, in no apparent distress. HEAD: Normocephalic. EYES: Normal reaction of pupils, equal size. NOSE: Clear with pink turbinates. THROAT: No erythema or exudates. Essentially edentulous NECK: No masses, no JVD. CHEST: No chest wall deformity. LUNGS: Equal air entry with few scattered rhonchi. Marked diminished breath sound bilaterally. CVS: S1 and S2 normal with no audible murmur, regular rhythm. ABDOMEN: No hepatosplenomegaly, normal bowel sounds, no guarding or rigidity. SPINE: No scoliosis or deformity SKIN: No rashes CENTRAL NERVOUS SYSTEM: No focal deficits, tone is normal in all 4 extremities. Generalized global weakness in all 4 extremities EXTREMITIES: There is no peripheral edema. No clubbing, no cyanosis. Perip heral pulses are intact. - Labs CBC & Chem 7: 03/26/25 03:57 03/26/25 03:57 Labs: Abnormal Lab Results - Last 24 Hours (Table) 03/26/25 03/26/25 Range/Units 03:57 03:57 MCHC 31.6 L (32.0-37.0) g/dL RDW 16.7 H (11.5-14.5) % Immature Gran # 0.06 H (0.00-0.04) X 10*3/uL Eosinophils # 0.37 H (0.04-0.35) X 10*3/uL Glucose 66 L (70-110) mg/dL Alkaline Phosphatase 137 H (41-126) U/L Total Protein 5.4 L (6.2-8.2) g/dL Albumin 2.9 L (3.8-4.9) g/dL Albumin/Globulin Ratio 1.16 L (1.60-3.17) Ratio Assessment and Plan Assessment: Acute on chronic hypoxic respiratory failure currently on 4 L of oxygen by nasal cannula. Worsening interstitial infiltrates in lung base bilaterally. Rule out interstitial edema versus development of a pneumonia. This could be essentially hospital-acquired versus aspiration pneumonia. Failure to thrive in a patient with increasing generalized weakness, poor appetite and significant diminishment in oral intake. There may be also some difficulties in swallowing. The patient needs to be further investigated in this regard. Remeron was added during his last admission. The patient is not taking enough food to maintain his caloric requirements. Family decided against PEG tube placement History of CAD, with previous stenting. The patient is known to have triple- vessel disease and the patient was supposed to undergo bypass surgery, however he was not found to be an appropriate candidate. He was given stent to his LAD as the patient was found to have an 80% proximal LAD lesion. History of atrial flutterfibrillation and current rhythm is atrial fibrillation CHF, reduced LV function. The patient's Previous echocardiogram from 2021 showed an ejection fraction of 45 to 50% without any significant valve abnormalities pulmonary hypertension. Acute kidney injury, mild, probably due to vascular depletion History of COPD, from previous tobacco use. Dementia History of recurrent unexplained syncope, could be cardiac History of hyperlipidemia. History of hypertension. Deafness GERD History of gout Peripheral vascular disease Poor overall functional performance based on the above-mentioned multiple comorbidities Plan: The patient was seen and evaluated Medications and labs reviewed Continue DuoNeb inhalations Continue Symbicort Titrate down the FiO2 as tolerated Family decided against PEG tube placement Would recommend the patient be hospice/comfort care Patient should be a DNR/DNI CODE STATUS as well Cleared for discharge to [facility] I have personally seen and examined the patient, performed the documentation and the assessment and plan as written. Number of minutes spent on the visit: 10 Dictation was produced using [employer] software. Please excuse any grammatical, word or spelling errors.
--- NOTE | 2025-03-26 14:58 | P.PN ---
Subjective Progress Note Date: 03/26/25 Principal diagnosis: Reason for follow-up is pneumonia Patient is a 84-year-old male with a past medical history significant for hypertension hyperlipidemia COPD heart failure coronary artery disease has been brought into the hospital from a local [facility] because of increasing shortness of breath and increasing O2 requirement, CT did shows evidence of moderate antral hernia right lower lobe infiltrate concerning for pneumonia. On today's evaluation that is 03/26/2025,the patient remains to be afebrile patient is slightly more awake alert he is breathing comfortably on 4 L nasal oxygen seem to be tolerating his diet the oral intake remains to be poor no vom iting or diarrhea has been reported. Patient white count 6.51, creatinine 0.8 blood culture has been negative Objective - Vital Signs Vital signs: Vital Signs Temp 98.2 F 03/26/25 13:35 Pulse 91 03/26/25 13:35 Resp 19 03/26/25 13:35 BP 123/81 03/26/25 13:35 Pulse Ox 95 03/26/25 08:57 FiO2 Intake & Output 03/25/25 03/26/25 03/26/25 18:59 06:59 18:59 Intake Total 100 Output Total 300 Balance -200 Weight 72.575 kg Intake: Oral 100 Output: Urine 300 Other: Voiding Method Urinal Urinal # Voids 2 2 # Bowel Movements 1 - Exam GENERAL DESCRIPTION: An elderly male lying in bed in no distress RESPIRATORY SYSTEM: Unlabored breathing , decreased breath sounds at bases HEART: S1 S2 regular rate and rhythm , ABDOMEN: Soft , no tenderness EXTREMITIES: No edema feet - Labs CBC & Chem 7: 03/26/25 03:57 03/26/25 03:57 Labs: Abnormal Lab Results - Last 24 Hours (Table) 03/26/25 03/26/25 Range/Units 03:57 03:57 MCHC 31.6 L (32.0-37.0) g/dL RDW 16.7 H (11.5-14.5) % Immature Gran # 0.06 H (0.00-0.04) X 10*3/uL Eosinophils # 0.37 H (0.04-0.35) X 10*3/uL Glucose 66 L (70-110) mg/dL Alkaline Phosphatase 137 H (41-126) U/L Total Protein 5.4 L (6.2-8.2) g/dL Albumin 2.9 L (3.8-4.9) g/dL Albumin/Globulin Ratio 1.16 L (1.60-3.17) Ratio Assessment and Plan (1) Penicillin allergy Current Visit: Yes Status: Acute Code(s): Z88.0 - ALLERGY STATUS TO PENICILLIN SNOMED Code(s): 90978784 (2) Pneumonia Current Visit: Yes Status: Acute Code(s): J18.9 - PNEUMONIA, UNSPECIFIED ORGANISM SNOMED Code(s): 854893019 Plan: 1patient presented to hospital with increasing shortness of breath and cough in this patient with evidence of consolidative changes right lower lobe large hiatal hernia with concern for possible aspiration 2penicillin allergies that will limit number of antibiotic safe to use 3patient seem to have shown some clinical improvement and has completed a 5-day course of Rocephin we will monitor closely off antibiotic at this point, family the bedside question answered Dictation was produced using [employer] dictation software. please excuse any grammatical, word or spelling errors. Time with Patient: Less than 30
[2025-03-26 23:43] LABS: Glucose,Whole Blood 85 mg/dL (70-110)
--- NOTE | 2025-03-27 09:21 | P.PN ---
Subjective Progress Note Date: 03/27/25 Patien patient remains s stable. He is tolerating diet. He will continue receive supportive care. Objective - Vital Signs Vital signs: Vital Signs Temp 98.7 F 03/27/25 07:24 Pulse 92 03/27/25 08:22 Resp 15 03/27/25 07:24 BP 129/78 03/27/25 07:24 Pulse Ox 91 L 03/27/25 07:24 FiO2 Intake & Output 03/26/25 03/27/25 03/27/25 18:59 06:59 18:59 Intake Total 500 Output Total 200 Balance 300 Intake: Oral 500 Output: Urine 200 Other: Voiding Method Urinal # Voids 2 1 - Labs CBC & Chem 7: 03/26/25 03:57 03/26/25 03:57 Labs: Microbiology - Last 24 Hours (Table) 03/21/25 09:08 Blood Culture - Final Blood
--- NOTE | 2025-03-27 14:20 | P.PN ---
Subjective Progress Note Date: 03/27/25 Patient is a 84-year-old male with a history of CAD, A-fib, COPD, GERD, hyperlipidemia, hypertension, [facility]. Patient was only recently discharged from the hospital. According to daughter who was at the bedside patient has been having worsening shortness of breath for the last day, patient also having cough which was productive.. Patient also started having nausea and vomiting. There was no complaint abdominal pain. There was no complaint of altered bowel movements. There is no complaint of any chest pain. Nursing staff at the facility noticed that the patient was requiring more oxygen and decided to send him to the ER Initial lab work done in the ER showed WBC 9.47, hemoglobin 17.4, platelet count 221, sodium 138, potassium 5.1, BUN 20, creatinine 1.28, glucose 101, AST 44, ALT 70 troponin 0.012 EKG done in the ER showed heart rate of115 , no ST segment elevation or depression seen, no T-wave inversions seen. Chest x-ray done in the ER diffuse interstitial opacity consistent with chronic interstitial changes versus mild CHF Patient admitted to internal medicine service 03/22. Patient seen and examined. Patient is lethargic, unable to swallow meds, swallow study ordered for today. Pulmonology had discussed with patient family, at this time they are open to PEG tube placement. Lab review showed WBC 8.5, hemoglobin 14.9, platelet count 195, D-dimer was elevated 0.9. Will order CT angio chest, patient be premedicated with contrast allergy prophylaxis 03/23. Patient seen and examined. Labs reviewed WBCs, 3, hemoglobin 14.4, platelet count 174, sodium 141, potassium 5.2, BUN 31, creatinine 1.2 CT chest PE protocol done showed no evidence of PE, showed moderate to advancing underlying changes of the left greater than right lower lobe infiltrates. Patient is more awake compared to yesterday, sitting upright in the bed 03/24. Patient seen and examined labs reviewed showed WBC 7.86, hemoglobin 14, sodium 140, potassium 3.8, BUN 25, creatinine 0.90.Currently on 4 L of oxygen. Breathing has improved 03/25. Patient seen and examined. Patient passed the swallow eval yesterday, PEG tube placement was discontinued. Patient continues to have poor appetite. Temperature 97%, heart rate 84, currently on 4 L of oxygen. . Patient seen and examined. and daughter at the bedside. Discussed with them in detail regarding patient's poor prognosis and possible hospice. Family at this time are not decided about changing goals of care, want to discuss with pulmonology and surgery. Patient continues to have poor appetite. Currently on 4liters of of oxygen. REVIEW OF SYSTEMS: Denies any chest pain. Denies palpitations. Complaining of bodyaches. Denies shortness of breath. Denies any nausea or vomiting PHYSICAL EXAMINATION: GENERAL: The patient is alert HEENT: Pupils are round and equally reacting to light. EOMI. No scleral icterus. No conjunctival pallor. Normocephalic, atraumatic. No pharyngeal erythema. No thyromegaly. CARDIOVASCULAR: S1 and S2 present. No murmurs, rubs, or gallops. PULMONARY: Coarse breath sound bilaterally ABDOMEN: Soft, nontender, nondistended, normoactive bowel sounds. No palpable organomegaly. MUSCULOSKELETAL: No joint swelling or deformity. EXTREMITIES: No cyanosis, clubbing, or pedal edema. NEUROLOGICAL: Gross neurological examination did not reveal any focal deficits. SKIN: No rashes. Assessment and plan Acute on chronic hypoxic respiratory failure Bacterial pneumonia Generalized weakness Moderate to severe protein caloric malnutrition History of dementia Transaminitis Chronic obstructive pulmonary disease History of previous chronic tobacco dependence Coronary artery disease with previous stent placement History of atrial flutter, anticoagulated with Eliquis History of congestive heart failure Hypertension hyperlipidemia Hearing disorder History of gout Monitor vital signs Monitor CBC Monitor CMP Continue telemetry monitoring Completed 5 days of IV antibiotic Continue breathing treatments Continue Eliquis PEG tube placement was discontinued Follow-up on pulmonology recommendation, recommendation m noted from 03/26 Follow-up on ID recommendations, recommendations noted from 03/26 Family meeting happened on 03/26, discussed with them in detail regarding patient's poor prognosis and possible hospice. Family at this time are not decided about changing goals of care, want to discuss with pulmonology and surgery Labs and medication were reviewed.. Continue same treatment. Continue with symptomatic treatment. Resume home medication. Monitor labs and vitals. DVT and GI prophylaxis. Further recommendations as per clinical course of the patient Dictation was produced using [employer] dictation software. please excuse any grammatical, word or spelling errors. Objective - Vital Signs Vital signs: Vital Signs Temp 98.7 F 03/27/25 07:24 Pulse 92 03/27/25 08:22 Resp 16 03/27/25 10:27 BP 129/78 03/27/25 07:24 Pulse Ox 91 L 03/27/25 07:24 FiO2 Intake & Output 03/26/25 03/27/25 03/27/25 18:59 06:59 18:59 Intake Total 500 Output Total 200 Balance 300 Intake: Oral 500 Output: Urine 200 Other: Voiding Method Urinal Urinal # Voids 2 1 - Labs CBC & Chem 7: 03/26/25 03:57 03/26/25 03:57 Labs: Microbiology - Last 24 Hours (Table) 03/21/25 09:08 Blood Culture - Final Blood
--- NOTE | 2025-03-27 16:18 | P.PN ---
Subjective Progress Note Date: 03/27/25 Principal diagnosis: Reason for follow-up is pneumonia Patient is a 84-year-old male with a past medical history significant for hypertension hyperlipidemia COPD heart failure coronary artery disease has been brought into the hospital from a local half-way because of increasing shortness of breath and increasing O2 requirement, CT did shows evidence of moderate antral hernia right lower lobe infiltrate concerning for pneumonia. On today's evaluation that is 03/27/2025,the patient remains to be afebrile, patient is on 4 L nasal oxygen supplemental oxygen and breathing seem to be comfortably patient is arousable but not very good historian no vomiting or diar lima has been reported. No new lab has been obtained today blood cultures have been negative Objective - Vital Signs Vital signs: Vital Signs Temp 97.6 F 03/27/25 13:46 Pulse 85 03/27/25 15:28 Resp 14 03/27/25 13:46 BP 114/68 03/27/25 13:46 Pulse Ox 93 L 03/27/25 13:46 FiO2 Intake & Output 03/26/25 03/27/25 03/27/25 18:59 06:59 18:59 Intake Total 500 50 Output Total 200 Balance 300 50 Intake: Oral 500 50 Output: Urine 200 Other: Voiding Method Urinal Urinal # Voids 2 1 - Exam GENERAL DESCRIPTION: An elderly male lying in bed in no distress RESPIRATORY SYSTEM: Unlabored breathing , decreased breath sounds at bases HEART: S1 S2 regular rate and rhythm , ABDOMEN: Soft , no tenderness EXTREMITIES: No edema feet - Labs CBC & Chem 7: 03/26/25 03:57 03/26/25 03:57 Labs: Microbiology - Last 24 Hours (Table) 03/21/25 09:08 Blood Culture - Final Blood Assessment and Plan (1) Penicillin allergy Current Visit: Yes Status: Acute Code(s): Z88.0 - ALLERGY STATUS TO PENICILLIN SNOMED Code(s): 70715900 (2) Pneumonia Current Visit: Yes Status: Acute Code(s): J18.9 - PNEUMONIA, UNSPECIFIED ORGANISM SNOMED Code(s): 434287749 Plan: 1patient presented to hospital with increasing shortness of breath and cough in this patient with evidence of consolidative changes right lower lobe large hiatal hernia with concern for possible aspiration 2penicillin allergies that will limit number of antibiotic safe to use 3patient remains to be afebrile blood cultures have been negative and has completed a 5-day course of Rocephin we will monitor closely off antibiotic at this point. Dictation was produced using [employer] dictation software. please excuse any grammatical, word or spelling errors. Time with Patient: Less than 30
[2025-03-28 07:58] LABS: Basophils # (A) 0.08 10*3/uL (0.00-0.10); Basophils % (A) 0.9 %; Eosinophils # (A) 0.39 10*3/uL (0.04-0.35); Eosinophils % (A) 4.3 %; HGB 13.7 g/dL (13.0-17.0); Lymphocytes % (A) 14.4 %; MCHC 31.9 g/dL (32.0-37.0); MCV 94.1 fL (80.0-97.0); Mean Platelet Volume 10.8 fL (9.5-12.2); Monocytes # (A) 0.78 10*3/uL (0.20-1.00); Monocytes % (A) 8.6 %; Neutrophils # (A) 6.39 10*3/uL (1.80-7.70); Neutrophils % (A) 70.9 %; Platelet Count 197 10*3/uL (140-440); RBC 4.57 10*6/uL (4.40-5.60); RDW 16.4 % (11.5-14.5); WBC 9.02 10*3/uL (4.50-10.00)
[2025-03-28 08:15] LABS: ALT 28 U/L (4-49); AST 22 U/L (17-59); African American GFR (CKD) 90 (>60 ml/min/1.73 sqM); Albumin 2.7 g/dL (3.5-5.0); Albumin/Globulin Ratio 0.9; Alkaline Phosphatase 137 U/L (38-126); Anion Gap 7 mmol/L; Blood Urea Nitrogen 12 mg/dL (9-20); Calcium 9.2 mg/dL (8.4-10.2); Carbon Dioxide 26 mmol/L (22-30); Chloride 106 mmol/L (98-107); Globulin 2.9 g/dL; Glucose 66 mg/dL (74-99); Non-African American GFR(CKD) 78 (>60 ml/min/1.73 sqM); Potassium 3.7 mmol/L (3.5-5.1); Sodium 139 mmol/L (137-145); Total Bilirubin 0.8 mg/dL (0.2-1.3); Total Protein 5.6 g/dL (6.3-8.2)
--- NOTE | 2025-03-28 09:20 | P.PN ---
Subjective Progress Note Date: 03/28/25 Patient is eating. He has no complaints. We will follow with you. Objective - Vital Signs Vital signs: Vital Signs Temp 97.1 F L 03/28/25 07:28 Pulse 86 03/28/25 08:12 Resp 17 03/28/25 07:28 BP 129/87 03/28/25 07:28 Pulse Ox 93 L 03/28/25 08:04 FiO2 Intake & Output 03/27/25 03/28/25 03/28/25 18:59 06:59 18:59 Intake Total 100 Output Total 125 Balance -25 Intake: Oral 100 Output: Urine 125 Other: Voiding Method Urinal Urinal Diaper # Voids 2 - Labs CBC & Chem 7: 03/28/25 07:24 03/28/25 07:24 Labs: Abnormal Lab Results - Last 24 Hours (Table) 03/28/25 03/28/25 Range/Units 07:24 07:24 MCHC 31.9 L (32.0-37.0) g/dL RDW 16.4 H (11.5-14.5) % Immature Gran # 0.08 H (0.00-0.04) 10*3/uL Eosinophils # 0.39 H (0.04-0.35) 10*3/uL Glucose 66 L (74-99) mg/dL Alkaline Phosphatase 137 H (38-126) U/L Total Protein 5.6 L (6.3-8.2) g/dL Albumin 2.7 L (3.5-5.0) g/dL
--- NOTE | 2025-03-28 13:48 | P.PN ---
Subjective Progress Note Date: 03/28/25 Patient is a 84-year-old male with a history of CAD, A-fib, COPD, GERD, hyperlipidemia, hypertension, presented to the ER from long-term for shortness of breath. Patient was only recently discharged from the hospital. According to daughter who was at the bedside patient has been having worsening shortness of breath for the last day, patient also having cough which was productive.. Patient also started having nausea and vomiting. There was no complaint abdominal pain. There was no complaint of altered bowel movements. There is no complaint of any chest pain. Nursing staff at the facility noticed that the patient was requiring more oxygen and decided to send him to the ER Initial lab work done in the ER showed WBC 9.47, hemoglobin 17.4, platelet count 221, sodium 138, potassium 5.1, BUN 20, creatinine 1.28, glucose 101, AST 44, ALT 70 troponin 0.012 EKG done in the ER showed heart rate of115 , no ST segment elevation or depression seen, no T-wave inversions seen. Chest x-ray done in the ER diffuse interstitial opacity consistent with chronic interstitial changes versus mild CHF Patient admitted to internal medicine service 03/22. Patient seen and examined. Patient is lethargic, unable to swallow meds, swallow study ordered for today. Pulmonology had discussed with patient family, at this time they are open to PEG tube placement. Lab review showed WBC 8.5, hemoglobin 14.9, platelet count 195, D-dimer was elevated 0.9. Will order CT angio chest, patient be premedicated with contrast allergy prophylaxis 03/23. Patient seen and examined. Labs reviewed WBCs, 3, hemoglobin 14.4, platelet count 174, sodium 141, potassium 5.2, BUN 31, creatinine 1.2 CT chest PE protocol done showed no evidence of PE, showed moderate to advancing underlying changes of the left greater than right lower lobe infiltrates. Patient is more awake compared to yesterday, sitting upright in the bed 03/24. Patient seen and examined labs reviewed showed WBC 7.86, hemoglobin 14, sodium 140, potassium 3.8, BUN 25, creatinine 0.90.Currently on 4 L of oxygen. Breathing has improved 03/25. Patient seen and examined. Patient passed the swallow eval yesterday, PEG tube placement was discontinued. Patient continues to have poor appetite. Temperature 97%, heart rate 84, currently on 4 L of oxygen. 03/26. Patient seen and examined. and daughter at the bedside. Discussed with them in detail regarding patient's poor prognosis and possible hospice. Family at this time are not decided about changing goals of care, want to discuss with pulmonology and surgery. Patient continues to have poor appetite. Currently on 4liters of of oxygen. 03/28. Patient seen and examined. No acute issue overnight. Vital signs stable. Breathing has improved.Temperature 97.7, heart rate 85, respirations 17, blood pressure 129/87. Labs reviewed showed WBC 9.02, hemoglobin 13.7, sodium 139, potassium 3.7, BUN 12, creatinine 0.90. Patient not eating much. Does not look in any acute distress REVIEW OF SYSTEMS: Denies any chest pain. Denies shortness of breath. Denies any nausea or vomiting PHYSICAL EXAMINATION: GENERAL: The patient is alert HEENT: Pupils are round and equally reacting to light. EOMI. No scleral icterus. No conjunctival pallor. Normocephalic, atraumatic. No pharyngeal erythema. No thyromegaly. CARDIOVASCULAR: S1 and S2 present. No murmurs, rubs, or gallops. PULMONARY: Coarse breath sound bilaterally ABDOMEN: Soft, nontender, nondistended, normoactive bowel sounds. No palpable organomegaly. MUSCULOSKELETAL: No joint swelling or deformity. EXTREMITIES: No cyanosis, clubbing, or pedal edema. NEUROLOGICAL: Gross neurological examination did not reveal any focal deficits. SKIN: No rashes. Assessment and plan Acute on chronic hypoxic respiratory failure Bacterial pneumonia Generalized weakness Moderate to severe protein caloric malnutrition History of dementia Transaminitis Chronic obstructive pulmonary disease History of previous chronic tobacco dependence Coronary artery disease with previous stent placement History of atrial flutter, anticoagulated with Eliquis History of congestive heart failure Hypertension hyperlipidemia Hearing disorder History of gout Monitor vital signs Monitor CBC Monitor CMP Continue telemetry monitoring Completed 5 days of IV antibiotic Continue breathing treatments Continue Eliquis PEG tube placement was discontinued Follow-up on pulmonology recommendation, recommendation m noted from 03/26 Follow-up on ID recommendations, recommendations noted from 03/27 Family meeting happened on 03/26, discussed with them in detail regarding patient's poor prognosis and possible hospice. Family at this time are not decided about changing goals of care, want to discuss with pulmonology and surgery Labs and medication were reviewed.. Continue same treatment. Continue with symptomatic treatment. Resume home medication. Monitor labs and vitals. DVT and GI prophylaxis. Further recommendations as per clinical course of the anthony ent Dictation was produced using [employer] dictation software. please excuse any grammatical, word or spelling errors. Objective - Vital Signs Vital signs: Vital Signs Temp 97.1 F L 03/28/25 07:28 Pulse 86 03/28/25 08:12 Resp 17 03/28/25 07:28 BP 129/87 03/28/25 07:28 Pulse Ox 93 L 03/28/25 08:04 FiO2 Intake & Output 03/27/25 03/28/25 03/28/25 18:59 06:59 18:59 Intake Total 100 Output Total 125 Balance -25 Intake: Oral 100 Output: Urine 125 Other: Voiding Method Urinal Urinal Diaper # Voids 2 - Labs CBC & Chem 7: 03/28/25 07:24 03/28/25 07:24 Labs: Abnormal Lab Results - Last 24 Hours (Table) 03/28/25 03/28/25 Range/Units 07:24 07:24 MCHC 31.9 L (32.0-37.0) g/dL RDW 16.4 H (11.5-14.5) % Immature Gran # 0.08 H (0.00-0.04) 10*3/uL Eosinophils # 0.39 H (0.04-0.35) 10*3/uL Glucose 66 L (74-99) mg/dL Alkaline Phosphatase 137 H (38-126) U/L Total Protein 5.6 L (6.3-8.2) g/dL Albumin 2.7 L (3.5-5.0) g/dL
--- NOTE | 2025-03-28 15:11 | P.PN ---
Subjective Progress Note Date: 03/28/25 Principal diagnosis: Reason for follow-up is pneumonia Patient is a 84-year-old male with a past medical history significant for hypertension hyperlipidemia COPD heart failure coronary artery disease has been brought into the hospital from a local care home because of increasing shortness of breath and increasing O2 requirement, CT did shows evidence of moderate antral hernia right lower lobe infiltrate concerning for pneumonia. On today's evaluation that is 03/28/2025, the patient continues to be afebrile, the patient is on 3 L nasal cannula oxygen and breathing comfortably, the Pt does not seem to be any distress Sleepy but arousable not a very good historian no vomiting or diarrhea has been reported. Patient white count is 9.02, creatinine 0.90 blood culture has been negative Objective - Vital Signs Vital signs: Vital Signs Temp 97.9 F 03/28/25 13:13 Pulse 85 03/28/25 13:13 Resp 15 03/28/25 13:13 BP 107/69 03/28/25 13:13 Pulse Ox 96 03/28/25 13:13 FiO2 Intake & Output 03/27/25 03/28/25 03/28/25 18:59 06:59 18:59 Intake Total 100 Output Total 125 120 Balance -25 -120 Intake: Oral 100 Output: Urine 125 120 Other: Voiding Method Urinal Urinal Diaper # Voids 2 - Exam GENERAL DESCRIPTION: An elderly male lying in bed in no distress RESPIRATORY SYSTEM: Unlabored breathing , decreased breath sounds at bases HEART: S1 S2 regular rate and rhythm , ABDOMEN: Soft , no tenderness EXTREMITIES: No edema feet - Labs CBC & Chem 7: 03/28/25 07:24 03/28/25 07:24 Labs: Abnormal Lab Results - Last 24 Hours (Table) 03/28/25 03/28/25 Range/Units 07:24 07:24 MCHC 31.9 L (32.0-37.0) g/dL RDW 16.4 H (11.5-14.5) % Immature Gran # 0.08 H (0.00-0.04) 10*3/uL Eosinophils # 0.39 H (0.04-0.35) 10*3/uL Glucose 66 L (74-99) mg/dL Alkaline Phosphatase 137 H (38-126) U/L Total Protein 5.6 L (6.3-8.2) g/dL Albumin 2.7 L (3.5-5.0) g/dL Assessment and Plan (1) Penicillin allergy Current Visit: Yes Status: Acute Code(s): Z88.0 - ALLERGY STATUS TO PENICILLIN SNOMED Code(s): 10647897 (2) Pneumonia Current Visit: Yes Status: Acute Code(s): J18.9 - PNEUMONIA, UNSPECIFIED ORGANISM SNOMED Code(s): 023168496 Plan: 1patient presented to hospital with increasing shortness of breath and cough in this patient with evidence of consolidative changes right lower lobe large hiatal hernia with concern for possible aspiration 2penicillin allergies that will limit number of antibiotic safe to use 3patient remains to be afebrile blood cultures have been negative, currently being monitored closely off antibiotic therapy and seem to be doing well Dictation was produced using [employer] dictation software. please excuse any grammatical, word or spelling errors. Time with Patient: Less than 30
--- NOTE | 2025-03-29 10:35 | P.PN ---
Subjective Progress Note Date: 03/29/25 Patient appears to be tolerating p.o. intake. He will be observed. Objective - Vital Signs Vital signs: Vital Signs Temp 97.8 F 03/29/25 07:27 Pulse 90 03/29/25 08:37 Resp 15 03/29/25 07:27 BP 132/85 03/29/25 07:27 Pulse Ox 93 L 03/29/25 07:27 FiO2 Intake & Output 03/28/25 03/29/25 03/29/25 18:59 06:59 18:59 Intake Total 600 Output Total 120 Balance 480 Intake: Intake, IV Titration 600 Amount Lactated Ringers 1,000 ml 600 @ 20 mls/hr IV .Q24H [facility] Rx#:[id number] Output: Urine 120 Other: Voiding Method Urinal Diaper # Voids 3 - Labs CBC & Chem 7: 03/28/25 07:24 03/28/25 07:24
--- NOTE | 2025-03-29 15:09 | P.PN ---
Subjective Progress Note Date: 03/29/25 Principal diagnosis: Reason for follow-up is pneumonia Patient is a 84-year-old male with a past medical history significant for hypertension hyperlipidemia COPD heart failure coronary artery disease has been [facility] because of increasing shortness of breath and increasing O2 requirement, CT did shows evidence of moderate antral hernia right lower lobe infiltrate concerning for pneumonia. On today's evaluation that is 03/29/2025, Patient is afebrile patient is currently on 4 L nasal cannula oxygen and breathing comfortably oral intake remains to be poor however he is drinking water as reported by the nursing no choking in the food abdominal pain or diarrhea reported. No new labs has been obtained today Objective - Vital Signs Vital signs: Vital Signs Temp 97.9 F 03/29/25 13:42 Pulse 85 03/29/25 13:42 Resp 15 03/29/25 13:42 BP 150/82 03/29/25 13:42 Pulse Ox 93 L 03/29/25 13:42 FiO2 Intake & Output 03/28/25 03/29/25 03/29/25 18:59 06:59 18:59 Intake Total 600 Output Total 120 Balance 480 Intake: Intake, IV Titration 600 Amount Lactated Ringers 1,000 ml 600 @ 20 mls/hr IV .Q24H [facility] Rx#:[id number] Output: Urine 120 Other: Voiding Method Urinal Urinal Diaper Diaper # Voids 3 - Exam GENERAL DESCRIPTION: An elderly male lying in bed in no distress RESPIRATORY SYSTEM: Unlabored breathing , decreased breath sounds at bases HEART: S1 S2 regular rate and rhythm , ABDOMEN: Soft , no tenderness EXTREMITIES: No edema feet - Labs CBC & Chem 7: 03/28/25 07:24 03/28/25 07:24 Assessment and Plan (1) Penicillin allergy Current Visit: Yes Status: Acute Code(s): Z88.0 - ALLERGY STATUS TO PENICILLIN SNOMED Code(s): 94497588 (2) Pneumonia Current Visit: Yes Status: Acute Code(s): J18.9 - PNEUMONIA, UNSPECIFIED ORGANISM SNOMED Code(s): 744415558 Plan: 1patient presented to hospital with increasing shortness of breath and cough in this patient with evidence of consolidative changes right lower lobe large hiatal hernia with concern for possible aspiration 2penicillin allergies that will limit number of antibiotic safe to use 3patient remains to be afebrile blood cultures have been negative, received a course of Rocephin for pneumonia and currently being monitored closely off antibiotic Dictation was produced using [employer] dictation software. please excuse any grammatical, word or spelling errors. Time with Patient: Less than 30
--- NOTE | 2025-03-29 15:52 | P.PN ---
Subjective Progress Note Date: 03/29/25 Patient is a 84-year-old male with a history of CAD, A-fib, COPD, GERD, hyperlipidemia, hypertension, presented to the ER from long term for shortness of breath. Patient was only recently discharged from the hospital. According to daughter who was at the bedside patient has been having worsening shortness of breath for the last day, patient also having cough which was productive.. Patient also started having nausea and vomiting. There was no complaint abdominal pain. There was no complaint of altered bowel movements. There is no complaint of any chest pain. Nursing staff at the facility noticed that the patient was requiring more oxygen and decided to send him to the ER Initial lab work done in the ER showed WBC 9.47, hemoglobin 17.4, platelet count 221, sodium 138, potassium 5.1, BUN 20, creatinine 1.28, glucose 101, AST 44, ALT 70 troponin 0.012 EKG done in the ER showed heart rate of115 , no ST segment elevation or depression seen, no T-wave inversions seen. Chest x-ray done in the ER diffuse interstitial opacity consistent with chronic interstitial changes versus mild CHF Patient admitted to internal medicine service 03/22. Patient seen and examined. Patient is lethargic, unable to swallow meds, swallow study ordered for today. Pulmonology had discussed with patient family, at this time they are open to PEG tube placement. Lab review showed WBC 8.5, hemoglobin 14.9, platelet count 195, D-dimer was elevated 0.9. Will order CT angio chest, patient be premedicated with contrast allergy prophylaxis 03/23. Patient seen and examined. Labs reviewed WBCs, 3, hemoglobin 14.4, platelet count 174, sodium 141, potassium 5.2, BUN 31, creatinine 1.2 CT chest PE protocol done showed no evidence of PE, showed moderate to advancing underlying changes of the left greater than right lower lobe infiltrates. Patient is more awake compared to yesterday, sitting upright in the bed 03/24. Patient seen and examined labs reviewed showed WBC 7.86, hemoglobin 14, sodium 140, potassium 3.8, BUN 25, creatinine 0.90.Currently on 4 L of oxygen. Breathing has improved 03/25. Patient seen and examined. Patient passed the swallow eval yesterday, PEG tube placement was discontinued. Patient continues to have poor appetite. Temperature 97%, heart rate 84, currently on 4 L of oxygen. 03/26. Patient seen and examined. and daughter at the bedside. Discussed with them in detail regarding patient's poor prognosis and possible hospice. Family at this time are not decided about changing goals of care, want to discuss with pulmonology and surgery. Patient continues to have poor appetite. Currently on 4liters of of oxygen. 03/28. Patient seen and examined. No acute issue overnight. Vital signs stable. Breathing has improved.Temperature 97.7, heart rate 85, respirations 17, blood pressure 129/87. Labs reviewed showed WBC 9.02, hemoglobin 13.7, sodium 139, potassium 3.7, BUN 12, creatinine 0.90. Patient not eating much. Does not look in any acute distress 03/29. Patient seen and examined. Continues to be on 4 L of oxygen. Discussed with nursing staff, patient continues to have poor appetite., REVIEW OF SYSTEMS: Denies any chest pain. Denies shortness of breath. Denies any nausea or vomiting PHYSICAL EXAMINATION: GENERAL: The patient is alert Chronically ill looking HEENT: Pupils are round and equally reacting to light. EOMI. No scleral icterus. No conjunctival pallor. Normocephalic, atraumatic. No pharyngeal erythema. No thyromegaly. CARDIOVASCULAR: S1 and S2 present. No murmurs, rubs, or gallops. PULMONARY: Coarse breath sound bilaterally ABDOMEN: Soft, nontender, nondistended, normoactive bowel sounds. No palpable organomegaly. MUSCULOSKELETAL: No joint swelling or deformity. EXTREMITIES: No cyanosis, clubbing, or pedal edema. NEUROLOGICAL: Gross neurological examination did not reveal any focal deficits. SKIN: No rashes. Assessment and plan Acute on chronic hypoxic respiratory failure Bacterial pneumonia Generalized weakness Moderate to severe protein caloric malnutrition History of dementia Transaminitis Chronic obstructive pulmonary disease History of previous chronic tobacco dependence Coronary artery disease with previous stent placement History of atrial flutter, anticoagulated with Eliquis History of congestive heart failure Hypertension hyperlipidemia Hearing disorder History of gout Monitor vital signs Monitor CBC Monitor CMP Continue telemetry monitoring Completed 5 days of IV antibiotic Continue breathing treatments Continue Eliquis PEG tube placement was discontinued Follow-up on pulmonology recommendation, recommendation m noted from 03/26 Follow-up on ID recommendations, recommendations noted from 03/29 Family meeting happened on 03/26, discussed with them in detail regarding patient 's poor prognosis and possible hospice. Family at this time are not decided about changing goals of care, want to discuss with pulmonology and surgery Labs and medication were reviewed.. Continue same treatment. Continue with symptomatic treatment. Resume home medication. Monitor labs and vitals. DVT and GI prophylaxis. Further recommendations as per clinical course of the patient Dictation was produced using [employer] dictation software. please excuse any grammatical, word or spelling errors. Objective - Vital Signs Vital signs: Vital Signs Temp 97.9 F 03/29/25 13:42 Pulse 85 03/29/25 13:42 Resp 15 03/29/25 13:42 BP 150/82 03/29/25 13:42 Pulse Ox 93 L 03/29/25 13:42 FiO2 Intake & Output 03/28/25 03/29/25 03/29/25 18:59 06:59 18:59 Intake Total 600 Output Total 120 Balance 480 Intake: Intake, IV Titration 600 Amount Lactated Ringers 1,000 ml 600 @ 20 mls/hr IV .Q24H [facility] Rx#:[id number] Output: Urine 120 Other: Voiding Method Urinal Urinal Diaper Diaper # Voids 3 - Labs CBC & Chem 7: 03/28/25 07:24 03/28/25 07:24
--- NOTE | 2025-03-30 11:40 | P.PN ---
Subjective Progress Note Date: 03/30/25 SURGICAL PROGRESS NOTE CHIEF COMPLAINT: Pneumonia HISTORY OF PRESENT ILLNESS: Patient tolerating oral intake. Eating small amount. PHYSICAL EXAM: VITAL SIGNS: Reviewed. GENERAL: Malnourished. No acute distress. ABDOMEN: Soft. Nondistended. Nontender. ASSESSMENT: 1. Dysphagia, failure to thrive, poor oral intake 2. Moderate protein calorie malnutrition 3. Possible aspiration pneumonia 4. Recurrent vomiting PLAN: - No plans for PEG tube at this time - Continue to observe Physician Executive Director Of Marketing note has been reviewed by physician. Signing provider agrees with the documented findings, assessment, and plan of care. Objective - Vital Signs Vital signs: Vital Signs Temp 97.7 F 03/30/25 07:44 Pulse 72 03/30/25 09:17 Resp 20 03/30/25 11:37 BP 147/89 03/30/25 07:44 Pulse Ox 91 L 03/30/25 07:44 FiO2 Intake & Output 03/29/25 03/30/25 03/30/25 18:59 06:59 18:59 Output Total 260 Balance -260 Output: Urine 110 Post Void Residual 150 Other: Voiding Method Urinal Urinal Urinal Diaper Diaper Diaper # Voids 2 1 - Labs CBC & Chem 7: 03/28/25 07:24 03/28/25 07:24
--- NOTE | 2025-03-30 14:46 | P.PN ---
Subjective Progress Note Date: 03/30/25 Principal diagnosis: Reason for follow-up is pneumonia Patient is a 84-year-old male with a past medical history significant for hypertension hyperlipidemia COPD heart failure coronary artery disease has been brought into the [facility] a local [facility] because of increasing shortness of breath and increasing O2 requirement, CT did shows evidence of moderate antral hernia right lower lobe infiltrate concerning for pneumonia. On today's evaluation that is 03/30/2025, patient has been afebrile, patient is breathing comfortably and is currently on 4 L nasal oxygen, patient lethargic but arousable evaluated with historian vomiting or diarrhea has been reported. Patient did have a white count of 9.02 no labs has been drawn today blood culture has been negative Objective - Vital Signs Vital signs: Vital Signs Temp 97.7 F 03/30/25 14:00 Pulse 80 03/30/25 14:00 Resp 16 03/30/25 14:00 BP 132/81 03/30/25 14:00 Pulse Ox 94 L 03/30/25 14:00 FiO2 Intake & Output 03/29/25 03/30/25 03/30/25 18:59 06:59 18:59 Output Total 260 Balance -260 Output: Urine 110 Post Void Residual 150 Other: Voiding Method Urinal Urinal Urinal Diaper Diaper Diaper # Voids 2 1 - Exam GENERAL DESCRIPTION: An elderly male lying in bed in no distress RESPIRATORY SYSTEM: Unlabored breathing , decreased breath sounds at bases HEART: S1 S2 regular rate and rhythm , ABDOMEN: Soft , no tenderness EXTREMITIES: No edema feet - Labs CBC & Chem 7: 03/28/25 07:24 03/28/25 07:24 Assessment and Plan (1) Penicillin allergy Current Visit: Yes Status: Acute Code(s): Z88.0 - ALLERGY STATUS TO PENICILLIN SNOMED Code(s): 03080393 (2) Pneumonia Current Visit: Yes Status: Acute Code(s): J18.9 - PNEUMONIA, UNSPECIFIED ORGANISM SNOMED Code(s): 370662500 Plan: 1patient presented to hospital with increasing shortness of breath and cough in this patient with evidence of consolidative changes right lower lobe large hiatal hernia with concern for possible aspiration 2penicillin allergies that will limit number of antibiotic safe to use 3patient remains to be afebrile blood cultures have been negative, received a course of Rocephin for pneumonia, currently doing well off antibiotic therapy and will be monitored closely Dictation was produced using [employer] dictation software. please excuse any grammatical, word or spelling errors. Time with Patient: Less than 30
--- NOTE | 2025-03-31 05:58 | P.PN ---
Subjective Progress Note Date: 03/30/25 Patient is a 84-year-old male with a history of CAD, A-fib, COPD, GERD, hyperlipidemia, hypertension, presented to the ER from senior living for shortness of breath. Patient was only recently discharged from the hospital. According to daughter who was at the bedside patient has been having worsening s hortness of breath for the last day, patient also having cough which was productive.. Patient also started having nausea and vomiting. There was no complaint abdominal pain. There was no complaint of altered bowel movements. There is no complaint of any chest pain. Nursing staff at the facility noticed that the patient was requiring more oxygen and decided to send him to the ER Initial lab work done in the ER showed WBC 9.47, hemoglobin 17.4, platelet count 221, sodium 138, potassium 5.1, BUN 20, creatinine 1.28, glucose 101, AST 44, ALT 70 troponin 0.012 EKG done in the ER showed heart rate of115 , no ST segment elevation or depression seen, no T-wave inversions seen. Chest x-ray done in the ER diffuse interstitial opacity consistent with chronic interstitial changes versus mild CHF Patient admitted to internal medicine service 03/22. Patient seen and examined. Patient is lethargic, unable to swallow meds, swallow study ordered for today. Pulmonology had discussed with patient family, at this time they are open to PEG tube placement. Lab review showed WBC 8.5, hemoglobin 14.9, platelet count 195, D-dimer was elevated 0.9. Will order CT angio chest, patient be premedicated with contrast allergy prophylaxis 03/23. Patient seen and examined. Labs reviewed WBCs, 3, hemoglobin 14.4, platelet count 174, sodium 141, potassium 5.2, BUN 31, creatinine 1.2 CT chest PE protocol done showed no evidence of PE, showed moderate to advancing underlying changes of the left greater than right lower lobe infiltrates. Patient is more awake compared to yesterday, sitting upright in the bed 03/24. Patient seen and examined labs reviewed showed WBC 7.86, hemoglobin 14, sodium 140, potassium 3.8, BUN 25, creatinine 0.90.Currently on 4 L of oxygen. Breathing has improved 03/25. Patient seen and examined. Patient passed the swallow eval yesterday, PEG tube placement was discontinued. Patient continues to have poor appetite. Temperature 97%, heart rate 84, currently on 4 L of oxygen. 03/26. Patient seen and examined. and daughter at the bedside. Discussed with them in detail regarding patient's poor prognosis and possible hospice. Family at this time are not decided about changing goals of care, want to discuss with pulmonology and surgery. Patient continues to have poor appetite. Currently on 4liters of of oxygen. 03/28. Patient seen and examined. No acute issue overnight. Vital signs stable. Breathing has improved.Temperature 97.7, heart rate 85, respirations 17, blood pressure 129/87. Labs reviewed showed WBC 9.02, hemoglobin 13.7, sodium 139, potassium 3.7, BUN 12, creatinine 0.90. Patient not eating much. Does not look in any acute distress 03/29. Patient seen and examined. Continues to be on 4 L of oxygen. Discussed with nursing staff, patient continues to have poor appetite., 03/30/2025 Patient is seen in follow-up continues on oxygen and continues to have poor oral intake. Patient did not receive a PEG tube and is attempting to continue with Ensure supplements with family reporting he has had significant decline since January of this year. Plan will be for her to return to [facility] for continued strength and mobility. Will discuss with consultations along with case management regarding discharge planning. Patient remains full code and family wishes to continue with this. Family was apparently awaiting further discussion with pulmonary and pulmonary reports to having signed off a few days ago. They recommended hospice and family is not ready for this. Will await updated PT/OT therapy notes and discuss further with treatment plan moving forward. Review of systems: Constitutional: No reports of fatigue, fever, or chills Cardiovascular: No reports of chest pain or palpitations Respiratory: No reports of worsening shortness of breath or cough GI: No reports of nausea, vomiting, or diarrhea, reports no appetite although attempting to drink a little more : No reports of dysuria or retention Neurovascular: reports of generalized weakness All medications have been reviewed PHYSICAL EXAMINATION: GENERAL: The patient is alert and oriented x 2-3, hard of hearing chronically ill looking well-developed, thin built, cachectic HEENT: Pupils are round and equally reacting to light. EOMI. No scleral icterus. No conjunctival pallor. Normocephalic, atraumatic. No pharyngeal erythema. No thyromegaly. CARDIOVASCULAR: S1 and S2 muffled PULMONARY: Diminished breath sounds bilaterally with coarse breath sound, faint crackles at the bases with rhonchi noted. ABDOMEN: Soft, thin, nontender, nondistended, normoactive bowel sounds. No palpable organomegaly. MUSCULOSKELETAL: No joint swelling or deformity. EXTREMITIES: No cyanosis, clubbing, or pedal edema. Bilateral lower extremity edema noted NEUROLOGICAL: Gross neurological examination did not reveal any focal deficits. Diffusely weak SKIN: No rashes. Assessment: Acute on chronic hypoxic respiratory failure secondary to COPD acute exacerbation Bacterial pneumonia, on admission being monitored closely off antibiotics and has received adequate antibiotics course Generalized weakness with gait dysfunction severe protein caloric malnutrition with a BMI of 24.3 History of dementia Transaminitis Chronic obstructive pulmonary disease, acute exacerbation History of previous chronic tobacco dependence Coronary artery disease with previous stent placement History of atrial flutter, anticoagulated with Eliquis History of congestive heart failure Hypertension hyperlipidemia Hearing disorder History of gout GI prophylaxis DVT prophylaxis Full code Plan: Patient being followed by multiple consultations including infectious disease and being monitored off antibiotic therapy and has completed IV antibiotic course. Patient also was evaluated by pulmonary recommending hospice and family reports they were awaiting to discuss further with consultations regarding treatment plan moving forward Patient was evaluated by general surgery for possible PEG tube although they have decided against it and evaluated by speech dysphagia diet and aspiration precautions Patient is attempting to eat and drink although continues with poor oral intake Await updated PT/OT therapy notes jeanne with case management regarding discharge planning. Plan to return back to [facility] on discharge The impression and plan of care has been dictated by Domonique Lowery, Nurse Practitioner as directed. Dr. Mia MD I have performed a history and examination and MDM of this patient, discussed the same with the dictator, and agree with the dictator's assessment and plan as written ,documented as a scribe. Based on total visit time, I have performed more than 50% of the visit. Objective - Vital Signs Vital signs: Vital Signs Temp 97.7 F 03/30/25 07:44 Pulse 72 03/30/25 09:17 Resp 16 03/30/25 07:44 BP 147/89 03/30/25 07:44 Pulse Ox 91 L 03/30/25 07:44 FiO2 Intake & Output 03/29/25 03/30/25 03/30/25 18:59 06:59 18:59 Output Total 260 Balance -260 Output: Urine 110 Post Void Residual 150 Other: Voiding Method Urinal Urinal Diaper Diaper # Voids 2 1 - Labs CBC & Chem 7: 03/28/25 07:24 03/28/25 07:24
[2025-03-31 08:18] LABS: BUN/Creat Ratio 11.83 Ratio (12.00-20.00); Blood Urea Nitrogen 7.1 mg/dL (9.0-27.0); Calcium 8.7 mg/dL (8.7-10.3); Carbon Dioxide 22.9 mmol/L (21.6-31.8); Chloride 107 mmol/L (96-109); Glucose 64 mg/dL (70-110); Magnesium 1.5 mg/dL (1.5-2.4); Potassium 3.4 mmol/L (3.5-5.5); Sodium 141 mmol/L (135-145)
[2025-03-31 08:33] LABS: Basophils # (A) 0.07 X 10*3/uL (0.00-0.10); Basophils % (A) 0.9 %; Eosinophils # (A) 0.29 X 10*3/uL (0.04-0.35); Eosinophils % (A) 3.9 %; HCT 40.7 % (39.6-50.0); HGB 13.1 g/dL (13.0-17.0); Lymphocytes # (A) 1.28 X 10*3/uL (0.90-5.00); Lymphocytes % (A) 17.3 %; MCH 30.4 pg (27.0-32.0); MCHC 32.2 g/dL (32.0-37.0); MCV 94.4 FL (80.0-97.0); Mean Platelet Volume 10.7 FL (9.5-12.2); Monocytes # (A) 0.76 X 10*3/uL (0.20-1.00); Monocytes % (A) 10.3 %; NRBC Per 100 WBC 0 X 10*3/uL (0.00-0.01); Neutrophils # (A) 4.89 X 10*3/uL (1.80-7.70); Neutrophils % (A) 66.4 %; Platelet Count 226 X 10*3/uL (140-440); RBC 4.31 X 10*6/uL (4.40-5.60); RDW 16.1 % (11.5-14.5); WBC 7.38 X 10*3/uL (4.50-10.00)
[2025-03-31 08:48] VITALS: TEMP 98
[2025-03-31] MEDS: POTASSIUM CHLORIDE ER 20 MEQ TAB.ER PO STA (12:11)
[2025-03-31] MEDS: TAMSULOSIN 0.4 MG CAP.ER.24H PO SCH (12:12)
--- NOTE | 2025-03-31 12:22 | P.PN ---
Subjective Progress Note Date: 03/31/25 SURGICAL PROGRESS NOTE CHIEF COMPLAINT: Pneumonia HISTORY OF PRESENT ILLNESS: Patient tolerating oral intake. Eating small amount. PHYSICAL EXAM: VITAL SIGNS: Reviewed. GENERAL: Malnourished. No acute distress. ASSESSMENT: 1. Dysphagia, failure to thrive, poor oral intake 2. Moderate protein calorie malnutrition 3. Possible aspiration pneumonia 4. Recurrent vomiting PLAN: - No plans for PEG tube at this time - Continue to observe Physician [employer] note has been reviewed by physician. Signing provider agrees with the documented findings, assessment, and plan of care. Objective - Vital Signs Vital signs: Vital Signs Temp 98.0 F 03/31/25 07:30 Pulse 92 03/31/25 08:59 Resp 20 03/31/25 08:46 BP 133/89 03/31/25 07:30 Pulse Ox 94 L 03/31/25 08:46 FiO2 Intake & Output 03/30/25 03/31/25 03/31/25 18:59 06:59 18:59 Intake Total 50 Output Total 520 50 Balance -470 -50 Weight 72.575 kg Intake: Oral 50 Output: Urine 520 50 Straight 500 Other: Voiding Method Urinal Diaper Urinal Diaper Diaper Incontinent # Voids 2 - Labs CBC & Chem 7: 03/31/25 06:00 03/31/25 06:00 Labs: Abnormal Lab Results - Last 24 Hours (Table) 03/31/25 03/31/25 Range/Units 06:00 06:00 RBC 4.31 L (4.40-5.60) X 10*6/uL RDW 16.1 H (11.5-14.5) % Immature Gran # 0.09 H (0.00-0.04) X 10*3/uL Potassium 3.4 L (3.5-5.5) mmol/L BUN 7.1 L (9.0-27.0) mg/dL BUN/Creatinine Ratio 11.83 L (12.00-20.00) Ratio Glucose 64 L (70-110) mg/dL
[2025-03-31 13:30] VITALS: BP 116/73; PULSE 85; RESP 18
--- NOTE | 2025-03-31 13:56 | P.DS ---
Providers Date of admission: 03/21/25 08:24 Expected date of discharge: 03/31/25 Attending physician: Nathanael Kendrick Consults: 03/21/25 08:29 Consult Physician Routine Consulting Provider: Gladys Patrick Consult Reason/Comments: Pneumonia, hypoxia Do you want consulting provider notified?: Yes 03/22/25 09:34 Consult Physician Routine Consulting Provider: Moisés Malagon Consult Reason/Comments: Bacterial pneumonia Do you want consulting provider notified?: Yes 03/22/25 09:50 Consult Physician Routine Consulting Provider: Charles James Consult Reason/Comments: peg tube placement Do you want consulting provider notified?: Yes Primary care physician: Joanne Campbell Hospital Course: Final diagnosis Acute on chronic hypoxic respiratory failure secondary to COPD acute exacerbation Bacterial pneumonia, on admission being monitored closely off antibiotics and has received adequate antibiotics course Generalized weakness with gait dysfunction severe protein caloric malnutrition with a BMI of 24.3 Urinary retention, started Flomax, refusing indwelling Barton catheter History of dementia Transaminitis Chronic obstructive pulmonary disease, acute exacerbation History of previous chronic tobacco dependence Coronary artery disease with previous stent placement History of atrial flutter, anticoagulated with Eliquis History of congestive heart failure Hypertension hyperlipidemia Hearing disorder History of gout GI prophylaxis DVT prophylaxis Full code Discharge disposition Patient is being discharged in a stable condition with guarded prognosis to [facility]. Patient will follow-up with Dr. Campbell in the outpatient setting upon discharge. Patient is to continue with Flomax and may need outpatient urology consultation for retention. Patient to follow-up with cardiology outpatient as scheduled. Total time taken is greater than 35 minutes. Hospital course This is a 84-year-old male who was recently admitted with acute on chronic hypoxic respiratory failure secondary to COPD exacerbation with concerns of bacterial pneumonia on admission. Patient has completed adequate antibiotics with infectious disease following and is being monitored closely off antibiotic therapy. Patient with severe protein calorie malnutrition and not eating very well is working on eating a little bit although it is extremely high risk for aspiration and was evaluated by speech not recommending a PEG tube. Patient tolerating a little more oral intake and will continue dysphagia ground diet with no straws and complete aspiration precautions with head of the bed elevated 45 degrees at all times. Patient was evaluated by multiple consultations including pulmonary and is an extremely high risk for aspirating frequently and long-term prognosis is extremely poor and he will most likely continue to have episodes of aspiration and strongly recommends DNR no code along with hospice/comfort care measures. Family refused PEG tube and show also addressed CODE STATUS. Patient remains full code at this time. Overall prognosis is extremely poor and hospice is appropriate. Currently no reports of chest pain, shortness of breath, or palpitations. Patient is afebrile. No reports of nausea or vomiting and patient is tolerating diet. Eating very little and would recommend Ensure supplements between meals as well. Patient will be going to [facility] today. High risk for readmissions given significant comorbidities and continued ongoing clinical decline since January 2025. Patient has had multiple hospitalizations and rehab visits and continues to decline. Again prognosis is poor. Physical exam: Gen: This is a 84-year-old male who is awake, alert and oriented x 2, hard of hearing, lethargic, thin build, elderly appearing, ill-appearing, cachectic HEENT: Head is atraumatic, normocephalic. Pupils equal, round. Sclerae is anicteric. NECK: Supple. No JVD. No lymphadenopathy. No thyromegaly. LUNGS: Diminished breath sounds bilaterally with some scattered rhonchi and bronchial congestion noted. No intercostal retractions. HEART: S1, S2 are muffled ABDOMEN: Soft. Bowel sounds are present. No masses. No tenderness. EXTREMITIES: No pedal edema. No calf tenderness. Generalized edema noted bilaterally to lower extremities NEUROLOGICAL: Patient is awake, alert and oriented x 2-3. Cranial nerves 2 through 12 are grossly intact. Diffusely weak Please refer to medication reconciliation sheet for a list of medications. The impression and plan of care has been dictated by Nurse Do Piña as directed. Dr. Mia MD I have performed a history and examination and MDM of this patient, discussed the same with the dictator, and agree with the dictator's assessment and plan as written ,documented as a scribe. Based on total visit time, I have performed more than 50% of the visit. Patient Condition at Discharge: Serious Plan - Discharge Summary Discharge Rx Participant: No New Discharge Prescriptions: New Ipratropium-Albuterol Nebulize [Duoneb 0.5 mg-3 mg/3 ml Soln] 3 ml INHALATION RT-QID each Tamsulosin [Flomax] 0.4 mg PO PC-BRKFST cap Continue Atorvastatin [Lipitor] 20 mg PO HS Apixaban [Eliquis] 2.5 mg PO BID@0800,1700 Cetirizine HCl [Zyrtec] 10 mg PO DAILY PRN PRN Reason: Allergy Symptoms allopurinoL 100 mg PO DAILY@0800 Ondansetron [Zofran] 4 mg PO Q6H PRN PRN Reason: Nausea And Vomiting Ipratropium-Albuterol Nebulize [Duoneb 0.5 mg-3 mg/3 ml Soln] 3 ml INHALATION RT-QID PRN PRN Reason: Shortness Of Breath Or Wheezing Vitamin B Complex 1 cap PO HS Omeprazole 20 mg PO DAILY@0600 Fluticasone Propion/Salmeterol [Wixela 500-50 Inhub] 2 puff INHALATION RT- DAILY Mirtazapine [Remeron] 15 mg PO HS tab guaiFENesin SYRUP 100MG/5ML [Robitussin] 200 mg PO Q4H PRN PRN Reason: Cough Magnesium Hydroxide [Milk of Magnesia Concentrate] 7,200 mg PO Q48H PRN PRN Reason: Constipation Metoprolol Succinate (ER) [Toprol XL] 12.5 mg PO DAILY@0800 Colchicine 0.6 mg PO BID@0800,1700 Loperamide HCl [Imodium A-D] 2 mg PO Q2H PRN PRN Reason: Diarrhea Acetaminophen [Tylenol Arthritis] 650 mg PO Q4H PRN PRN Reason: Pain Multivit-Min/FA/Lycopen/Lutein [Centrum Silver Tablet] 1 tab PO HS buPROPion XL [Wellbutrin XL] 300 mg PO DAILY@0800 bisacodyL [Dulcolax] 10 mg RECTAL DAILY PRN PRN Reason: Constipation Na Phos,M-B/Na Phos,Di-Ba [Fleet Adult] 133 ml RECTAL DAILY PRN PRN Reason: Constipation Discontinued Ipratropium-Albuterol Nebulize [Duoneb 0.5 mg-3 mg/3 ml Soln] 3 ml INHALATION DIRECTED PRN PRN Reason: Shortness Of Breath Discharge Medication List Atorvastatin [Lipitor] 20 mg PO HS 10/17/18 [History] Apixaban [Eliquis] 2.5 mg PO BID@0800,1700 06/05/20 [History] Cetirizine HCl [Zyrtec] 10 mg PO DAILY PRN 06/10/23 [History] Colchicine 0.6 mg PO BID@0800,1700 06/10/23 [History] Metoprolol Succinate (ER) [Toprol XL] 12.5 mg PO DAILY@0806/10/23 [History] allopurinoL 100 mg PO DAILY@0806/10/23 [History] Acetaminophen [Tylenol Arthritis] 650 mg PO Q4H PRN 03/11/25 [History] Fluticasone Propion/Salmeterol [Wixela 500-50 Inhub] 2 puff INHALATION RT-DAILY 03/11/25 [History] Ipratropium-Albuterol Nebulize [Duoneb 0.5 mg-3 mg/3 ml Soln] 3 ml INHALATION RT-QID PRN 03/11/25 [History] Loperamide HCl [Imodium A-D] 2 mg PO Q2H PRN 03/11/25 [History] Multivit-Min/FA/Lycopen/Lutein [Centrum Silver Tablet] 1 tab PO HS 03/11/25 [History] Omeprazole 20 mg PO DAILY@0600 03/11/25 [History] Ondansetron [Zofran] 4 mg PO Q6H PRN 03/11/25 [History] Vitamin B Complex 1 cap PO HS 03/11/25 [History] buPROPion XL [Wellbutrin XL] 300 mg PO DAILY@0800 03/11/25 [History] Mirtazapine [Remeron] 15 mg PO HS tab 03/19/25 [Rx] Magnesium Hydroxide [Milk of Magnesia Concentrate] 7,200 mg PO Q48H PRN 03/21/25 [History] Na Phos,M-B/Na Phos,Di-Ba [Fleet Adult] 133 ml RECTAL DAILY PRN 03/21/25 [History] bisacodyL [Dulcolax] 10 mg RECTAL DAILY PRN 03/21/25 [History] guaiFENesin SYRUP 100MG/5ML [Robitussin] 200 mg PO Q4H PRN 03/21/25 [History] Ipratropium-Albuterol Nebulize [Duoneb 0.5 mg-3 mg/3 ml Soln] 3 ml INHALATION RT-QID each 03/31/25 [Rx] Tamsulosin [Flomax] 0.4 mg PO PC-BRKFST cap 03/31/25 [Rx] Follow up Appointment(s)/Referral(s): Joanne Campbell DO [Primary Care Provider] - 1-2 days [facility] [place], [NON-STAFF] - 1-2 Days Activity/Diet/Wound Care/Special Instructions: Patient is going to [facility] [place] Activity as tolerated Continue heart healthy dysphagia ground diet with no straws, aspiration prec autions and one-to-one supervision. Patient is extremely high risk for aspirating and recommend head of the bed elevated 45 degrees at all times Patient remains full code and CODE STATUS needs to be addressed and would recommend no code. Patient was evaluated by pulmonary recommending hospice and family does not want hospice at this time Recommend repeat CBC, CMP, magnesium in 2 to 3 days Follow-up with primary care provider on discharge Patient continues to have retention recommend to continue with Flomax and patient has had undergo straight catheterization and does not want an indwelling Barton catheter. Discharge Disposition: TRANSFER TO SNF/ECF
--- NOTE | 2025-04-01 16:24 | P.PN ---
Subjective Progress Note Date: 03/31/25 Principal diagnosis: Reason for follow-up is pneumonia Patient is a 84-year-old male with a past medical history significant for hypertension hyperlipidemia COPD heart failure coronary artery disease has been brought into the hospital from a local alf because of increasing shortness of breath and increasing O2 requirement, CT did shows evidence of moderate antral hernia right lower lobe infiltrate concerning for pneumonia. On today's evaluation that is 03/31/2025, Patient is afebrile this morning patient is breathing comfortably currently on 4 L nasal cannula oxygen patient is sleepy but arousable oral intake remains to be poor no vomiting or diarrhea has been reported. Patient white count 7.38, creatinine 0.6 blood culture negative Objective - Vital Signs Vital signs: Vital Signs Temp 98.0 F 03/31/25 07:30 Pulse 92 03/31/25 13:09 Resp 20 03/31/25 08:46 BP 133/89 03/31/25 07:30 Pulse Ox 94 L 03/31/25 08:46 FiO2 Intake & Output 03/30/25 03/31/25 03/31/25 18:59 06:59 18:59 Intake Total 50 Output Total 520 50 Balance -470 -50 Weight 72.575 kg Intake: Oral 50 Output: Urine 520 50 Straight 500 Other: Voiding Method Urinal Diaper Urinal Diaper Diaper Incontinent # Voids 2 - Exam GENERAL DESCRIPTION: An elderly male lying in bed in no distress RESPIRATORY SYSTEM: Unlabored breathing , decreased breath sounds at bases HEART: S1 S2 regular rate and rhythm , ABDOMEN: Soft , no tenderness EXTREMITIES: No edema feet - Labs CBC & Chem 7: 03/31/25 06:00 03/31/25 06:00 Labs: Abnormal Lab Results - Last 24 Hours (Table) 03/31/25 03/31/25 Range/Units 06:00 06:00 RBC 4.31 L (4.40-5.60) X 10*6/uL RDW 16.1 H (11.5-14.5) % Immature Gran # 0.09 H (0.00-0.04) X 10*3/uL Potassium 3.4 L (3.5-5.5) mmol/L BUN 7.1 L (9.0-27.0) mg/dL BUN/Creatinine Ratio 11.83 L (12.00-20.00) Ratio Glucose 64 L (70-110) mg/dL Assessment and Plan (1) Penicillin allergy Status: Acute Code(s): Z88.0 - ALLERGY STATUS TO PENICILLIN SNOMED Code(s): 56909478 (2) Pneumonia Status: Acute Code(s): J18.9 - PNEUMONIA, UNSPECIFIED ORGANISM SNOMED Code(s): 397570603 Plan: 1patient presented to hospital with increasing shortness of breath and cough in this patient with evidence of consolidative changes right lower lobe large hiatal hernia with concern for possible aspiration 2penicillin allergies that will limit number of antibiotic safe to use 3patient remains to be afebrile blood cultures have been negative, patient has received a course of Rocephin for pneumonia, and no need for any antibiotics on discharge Dictation was produced using [employer] dictation software. please excuse any grammatical, word or spelling errors. Time with Patient: Less than 30
--- NOTE | 2025-04-02 15:07 | CDI ---
Documentation Clarification Form Date: 04/02/2025 02:54:03 PM From: Elen Astudillo Phone: Admit Date: 03/21/2025 08:24:00 AM Patient Name: Balwinder Lucero Visit Number: [id number] Discharge Date: 03/31/2025 06:45:00 PM ATTENTION: The Clinical Documentation Specialists (CDI) and [facility] Coding Staff appreciate your assistance in clarifying documentation. Please respond to the clarification below the line at the bottom and electronically sign. The CDI & [facility] Coding staff will review the response and follow-up if needed. Please note: Queries are made part of the Legal Health Record. If you have any questions, please contact the author of this message via ITS. Doctor/Provider: Kan Richardson S2 PU left buttock pressure ulcer is documented by [employer]. Based on this information and the findings below, is there an additional diagnosis that is clinically appropriate for this patient? History/Risk Factors: 84yo M, AECOPD, ACHRF, bacterial PNA, generalized weaknesswith gaitdys, severe PCMBMI 24.3, urinary retention, dementia, transaminitis, CAD, A Flutter, CSHF, HTN, HLD, former smoker Clinical Indicators: Current BMI: 24.3 RD Consult Assessment: increased metabolic demand for wound healing; S2 PU left buttock; meeting 75% of estimated nutrition needs- refusing most meals Treatment: He is able to eat small amount. Family has decided not toproceed withPEG tube placement. PEG tubehas been canceled. Please clarify the severity of malnutrition, if known: [ ] Moderate Protein-Calorie Malnutrition [ x ] Severe Protein-Calorie Malnutrition [ ] Other condition, please specify [ ] Unable to Determine (Template Last Revised: May 2023) MTDD
--- NOTE | 2025-04-03 15:56 | CDI ---
Documentation Clarification Form Date: 04/03/2025 03:51:54 PM From: Elen Astudillo Phone: Admit Date: 03/21/2025 08:24:00 AM Patient Name: Balwinder Lucero Visit Number: [id number] Discharge Date: 03/31/2025 06:45:00 PM ATTENTION: The Clinical Documentation Specialists (CDI) and [facility] Coding Staff appreciate your assistance in clarifying documentation. Please respond to the clarification below the line at the bottom and electronically sign. The CDI & [facility] Coding staff will review the response and follow-up if needed. Please note: Queries are made part of the Legal Health Record. If you have any questions, please contact the author of this message via ITS. Doctor/Provider: Kan Richardson S2 PUleft buttock pressure ulceris documented by [employer]. Based on this information and the findings below, is there an additional diagnosis that is clinically appropriate for this patient? History/Risk Factors: 84yo M,AECOPD, ACHRF,bacterial PNA,generalized weaknesswith gaitdys,severe PCMBMI 24.3,urinary retention,dementia, transaminitis,CAD,A Flutter, CSHF,HTN,HLD,former smoker Clinical Indicators: CurrentBMI: 24.3 RD ConsultAssessment: increased metabolic demand forwoundhealing; S2 PU left buttock; meeting 75% of estimated nutrition needs- refusing most meals Treatment: He is able to eat small amount. Family hasdecided not toproceed withPEG tube placement. PEG tubehas beencanceled. Is there an additional diagnosis that is clinically appropriate for this patient? [ ] Left buttock pressure ulcer Stage 1 [ x ] Left buttock pressure ulcer Stage 2 [ ] Left buttock pressure ulcer Stage 3 [ ] Left buttock Deep tissue injury [ ] Other condition, please specify [ ] Unable to determine Clinical Definitions: Stage 1 Pressure Ulcer: intact skin, non-blanching redness of local area Stage 2 Pressure Ulcer: Partial thickness, loss of dermis, pink wound bed Stage 3 Pressure Ulcer: Full thickness tissue loss Stage 4 Pressure Ulcer: Full thickness tissue loss with exposed bone, tendon, or muscle. Unstageable pressure ulcer: Full thickness tissue loss in which the base of the ulcer is covered by slough (yellow, romero, manzanares, green or brown) and/or eschar (romero, brown or black) in the wound bed. (Template Last Revised: January 2021) MTDD
== END 2025-03-31 18:45 | DRG 177 ==
LOC: EC 06:47 → 4SSUR 08:24
PROVIDERS: ADMIT Hospitalist; ATTEND Hospitalist
DX: J69.0 Pneumonitis due to inhalation of food and vomit (principal); E43 Unspecified severe protein-calorie malnutrition; J96.21 Acute and chronic respiratory failure with hypoxia; R62.7 Adult failure to thrive; L89.322 Pressure ulcer of left buttock, stage 2; I48.91 Unspecified atrial fibrillation; J44.1 Chronic obstructive pulmonary disease with (acute) exacerbation; I11.0 Hypertensive heart disease with heart failure; F03.90 Unspecified dementia, unspecified severity, without behavioral disturbance, psychotic disturbance, mood disturbance, and anxiety; I73.9 Peripheral vascular disease, unspecified; I48.92 Unspecified atrial flutter; J44.0 Chronic obstructive pulmonary disease with (acute) lower respiratory infection; I50.22 Chronic systolic (congestive) heart failure; N17.9 Acute kidney failure, unspecified; J15.9 Unspecified bacterial pneumonia; R13.10 Dysphagia, unspecified; I25.10 Atherosclerotic heart disease of native coronary artery without angina pectoris; E78.5 Hyperlipidemia, unspecified; M10.9 Gout, unspecified; H91.90 Unspecified hearing loss, unspecified ear; K21.9 Gastro-esophageal reflux disease without esophagitis; R33.9 Retention of urine, unspecified; Z53.29 Procedure and treatment not carried out because of patient's decision for other reasons; Z79.01 Long term (current) use of anticoagulants; Z79.51 Long term (current) use of inhaled steroids; Z87.891 Personal history of nicotine dependence; Z95.5 Presence of coronary angioplasty implant and graft; Z86.14 Personal history of Methicillin resistant Staphylococcus aureus infection; Z79.899 Other long term (current) drug therapy; Z68.24 Body mass index [BMI] 24.0-24.9, adult; Z87.01 Personal history of pneumonia (recurrent); R11.2 Nausea with vomiting, unspecified; R26.9 Unspecified abnormalities of gait and mobility; R74.01 Elevation of levels of liver transaminase levels
CPT/HCPCS: 36415; 36600; 71045; 71046; 71275; 74230; 80048; 80053; 82805; 83605; 83735; 83880; 84145; 84484; 85025; 85027; 85379; 85610; 85652; 85730; 86140; 87040; 87449; 87636; 93005; 93970; 94640; 94760; 96361; 96365; 96366; 96367; 96375; 99291